=== PATIENT | male | born 1960 | race African-American/Black ===

== ENCOUNTER 2018-09-25 00:26 | Emergency (ER) | payer OTHER ==
--- OUTSIDE RECORDS SUMMARY | 2018-09-25 00:27 | XMS REPORT | Clinical Summary ---
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, initial encounter ([facility]); Presence of left artificial knee joint 08/17/2018 Transcribe Orders Access Yanelis Sahni, Infection of total left knee replacement, initial encounter ([facility]) (Primary Dx); DO Pain due to hip joint prosthesis, initial encounter ([facility]); Presence of left artificial knee joint after 09/24/2017 Social History Tobacco Use Types Packs/Day Years Used Date Never Assessed Sex Assigned at Date Recorded Not on file Job Start Date Occupation Industry Not on file Not on file Not on file Travel History Travel Start Travel End No recent travel history available. Last Filed Vital Signs Not on file Plan of Treatment Health Maintenance Due Date Last Done Comments COLON CANCER SCREENING 2008 SHINGRIX VACCINE (1 of 2) 2008 INFLUENZA VACCINE 05/20/2018 HEPATITIS B VACCINES Aged Out No longer eligible based on patient's age to complete this topic IPV VACCINES Aged Out No longer eligible based on patient's age to complete this topic MENINGOCOCCAL VACCINE Aged Out No longer eligible based on patient's age to complete this topic Procedures Procedure Name Priority Date/Time Associated Comments Diagnosis US NEEDLE ASPIRATION Routine 08/27/2018 3:21 PM Infection of total Results for this [employer] left knee procedure are in replacement, the results initial encounter section. 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 CRYSTAL ANALYSIS Routine 08/27/2018 2:40 PM Results for this [employer] procedure are in the results section. CELL COUNT AND Routine 08/27/2018 2:40 PM Results for this DIFFERENTIAL, BODY [employer] procedure are in FLUID the results section. TISSUE CULTURE Timed 08/27/2018 2:40 PM Results for this [employer] procedure are in the results section. GRAM STAIN Timed 08/27/2018 2:40 PM Results for this [employer] procedure are in the results section. ANAEROBIC CULTURE Timed 08/27/2018 2:40 PM Infection of total Results for this [employer] left knee procedure are in replacement, the results initial encounter section. 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 FINDINGS: Following informed consent using aseptic technique under local anesthetic and using ultrasound guidance needle was directed to 3 areas where hypo suspected fluid was noted. One along the lateral margin of the distal femur one in the area of the suprapatellar bursal region and another adjacent area as well. No significant fluid could be aspirated any of these areas. Only a small amount of blood was aspirated which was sent for culture and sensitivity. No additional findings of significance are noted. The patient tolerated the procedure without difficulty. IMPRESSION:No fluid was encountered to allow for aspiration. A small collection of blood was sent for culture and sensitivity [id number] Procedure Note Hm Interface, Radiology Results Incoming - 08/27/2018 3:58 PM [employer] EXAMINATION: US NEEDLE ASPIRATION CLINICAL HISTORY: T84.54XA Infection and inflammatory reaction due to internal left knee prosthesis initial encounter, Z96.652 Presence of left artificial knee joint, T84.54XA T84.84XA Z96.652 COMPARISON: None. FINDINGS: Following informed consent using aseptic technique under local anesthetic and using ultrasound guidance needle was directed to 3 areas where hypo suspected fluid was noted. One along the lateral margin of the distal femur one in the area of the suprapatellar bursal region and another adjacent area as well. No significant fluid could be aspirated any of these areas. Only a small amount of blood was aspirated which was sent for culture and sensitivity. No additional findings of significance are noted. The patient tolerated the procedure without difficulty. IMPRESSION:No fluid was encountered to allow for aspiration. A small collection of blood was sent for culture and sensitivity [id number] Performing Organization Address City/[facility] [address]/Zipcode Phone Number [address] [address] Crystal analysis (08/27/2018 2:40 PM [facility]) Crystal analysis specimen type Synovial [facility] DEPARTMENT OF PATHOLOGY AND GENOMIC MEDICINE Monosodium urate None seen None seen [facility] DEPARTMENT OF PATHOLOGY AND GENOMIC MEDICINE CPPD crystals None seen None seen [facility] DEPARTMENT OF PATHOLOGY AND GENOMIC MEDICINE Specimen Fluid Performing Organization Address [facility] [address]/[facility] Phone Number [facility] DEPARTMENT OF PATHOLOGY AND [address] [place] [phone] [facility] Tissue culture (08/27/2018 2:40 PM [facility]) Tissue culture isolate No growth after 3 days. [facility] Comment: Specimen Information Specimen Source: Tissue Specimen Site: Knee Specimen Tissue - Knee Performing Organization Address [facility] [address]/[facility] Phone Number [facility] DEPARTMENT OF PATHOLOGY AND [address] [place], [place] [phone] [address] [address] Gram stain (08/27/2018 2:40 PM [employer]) Gram stain isolate Occasional WBC's [facility] DEPARTMENT OF PATHOLOGY AND No organisms seen [facility] Comment: Specimen Information Specimen Source: Tissue Specimen Site: Knee Specimen Tissue - Knee Performing Organization Address [facility] [address]/[facility] Phone Number [facility] DEPARTMENT OF PATHOLOGY AND [address] [place] [phone] [facility] Anaerobic culture (08/27/2018 2:40 PM [facility]) Anaerobic culture isolate No anaerobic organisms isolated. [facility] Comment: HOSPITAL Specimen Information Specimen Source: Tissue Specimen Site: Knee Specimen Tissue - Knee Performing Organization Address City/[facility] [address]/Zipcode Phone Number [facility] DEPARTMENT OF PATHOLOGY AND [address] [place], [place] [phone] [address] [address] Cell count and differential, body fluid (08/27/2018 2:40 PM [employer]) [facility] fluid type Synovial [facility] DEPARTMENT OF PATHOLOGY AND GENOMIC MEDICINE Color, fluid [place] [facility] DEPARTMENT OF PATHOLOGY AND GENOMIC MEDICINE Appearance, fluid Cloudy (A) [facility] DEPARTMENT OF PATHOLOGY AND GENOMIC MEDICINE RBC, fluid 16,750 /CMM [facility] DEPARTMENT OF PATHOLOGY AND GENOMIC MEDICINE Nucleated cells, fluid 75 /CMM [facility] DEPARTMENT OF PATHOLOGY AND GENOMIC MEDICINE Fluid mononuclear cell Diff to follow [facility] DEPARTMENT OF PATHOLOGY AND GENOMIC MEDICINE Neutrophils, fluid 59 % [facility] DEPARTMENT OF PATHOLOGY AND GENOMIC MEDICINE Lymphocytes, fluid 32 % [facility] DEPARTMENT OF PATHOLOGY AND GENOMIC MEDICINE Eosinophils, fluid 1 % [facility] DEPARTMENT OF PATHOLOGY AND GENOMIC MEDICINE Macrophages, fluid 8 % [facility] DEPARTMENT OF PATHOLOGY AND GENOMIC MEDICINE Specimen Fluid Performing Organization Address City/State/[facility] Phone Number [facility] DEPARTMENT OF PATHOLOGY AND [address] [place] [address] GENOMIC MEDICINE Glucose level, [facility] fluid (08/27/2018 2:40 PM [employer]) Fluid type Synovial [facility] DEPARTMENT OF PATHOLOGY AND GENOMIC MEDICINE Glucose, fluid <2 mg/dL [facility] DEPARTMENT OF PATHOLOGY Comment: AND GENOMIC MEDICINE Analysis performed on Kelli 8000 analyzer. This is not an approved methodology for this specimen type;accuracy and clinical significance uncertain. Specimen Fluid Performing Organization Address City/State/Zipcode Phone Number [facility] DEPARTMENT OF PATHOLOGY AND [address] [place] [address] GENOMIC MEDICINE after 09/24/2017 Insurance Payer Benefit Plan / Group Subscriber ID Type Phone Address [employer]/NETWORK xxxxxxxxxxx O MEDICARE MEDICARE PART A AND B xxxxxxxxxxx Medicare [place], [place] (Home) [address] [place] [address] Advance Directives Patient has advance care planning documents on file. For more information, please contact:Jerry Hyatt[address] [place] [address]
--- OUTSIDE RECORDS SUMMARY | 2018-09-25 00:31 | XMS REPORT | Continuity of Care Document ---
:1960 Author Organization Interface Problems Problem Status Onset Classification Date Comments Source Date Reported G06.2 Active 08/26/[address] XRAY Active 07/14/[address] BACK PAIN Active 06/19/20 [facility] 724.2 Active 05/24/[address] 724.2 ACUTE LOW Active 05/09/20 BACK PAIN 15 [facility] Type 2 diabetes Active Diagnosis 10/29/2017 2.16.840.1. mellitus without [id number] complication, 1.. without long-term current use of insulin Staphylococcus Active Diagnosis 10/29/2017 2.16.840.1. aureus bacteremia 815673.4.39 with sepsis 1..42102 Abscess in Active Diagnosis 10/29/2017 2.16.840.1. epidural space of 732658.4.39 thoracic spine 1..88618 Local infection Active Diagnosis 09/10/2017 2.16.840.1. of the skin and 247181.4.39 subcutaneous 1.11.60978 tissue, unspecified Abrasion of right Active Diagnosis 09/10/2017 2.16.840.1. front wall of 584385.4.39 thorax, 1.11.94742 subsequent encounter DM Active Problem 10/29/2017 2.16.840.1. 568365.4.39 1.11.39160 Chronic back pain Active Problem 10/29/2017 2.16.840.1. 604530.4.39 1.11.78747 HTN Active Problem 10/29/2017 2.16.840.1. 303386.4.39 1.11.58014 Epidural abscess Active Problem 10/29/2017 2.16.840.1. 851924.4.39 1.11.71062 Osteomyelitis Active Problem 10/29/2017 2.16.840.1. 603532.4.39 1.11.83779 Sepsis Active Problem 10/29/2017 2.16.840.1. 296685.4.39 Bacteremia Active Problem 10/29/2017 2.16.840.1. 425996.4.39 Chronic back pain Resolved Problem 09/21/2017 Raoul Wyman [facility] Diabetes Resolved Problem 09/21/2017 Raoul Wyman [facility] HTN (<span Resolved Problem 09/21/2017 ID="[id number]" Garo,M >Confirmed</span> ischer ) Neuro Simple obesity Active Problem 09/21/2017 Raoul Wyman [facility] DORSALGIA, Active UNSPECIFIED [facility] Medications Medication Details Route Status Patient Ordering Order Source Instructions Provider Date Keflex 1 tablet Orally Active 500 MG Orally Nyal[place]onda .16.840.1 every 6 hrs 2016 .976332.4. 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 WASTE: F/P - Black; E - PlayEnable Trash Bin Rifampin 1 capsule PO Active 300 MG PO Nyal[place] .16.840.1 twice a day 2016 .858929.4. (bid) 391 68 Rifampin 1 capsule PO Active 300 MG PO [place] .16.840.1 twice a day 2016 .501871.4. (bid) 391 68 Doxycycline 1 capsule Orally Active 100 MG Orally Nyal[place] .16.840.1 Hyclate every 12 hrs 2016 .931491.4. 391 68 OPANA ER OPANA ER Inactive (C-II) (C-II) 2016 [facility] Controlled Med Controlled Pt's Own Med Med Pt's Own Med, 10 mg, 1 tab, Drug form: MISC, Route: PO, Q12H, 07/04/17 21:00:00 CDT, Duration: 30 day, Stop date: 08/03/17 9:00:00 CDT Opana ER 10 mg, Route: Inactive PO, Drug 2016 [facility] form: ERTAB, Q12H, Dosing Weight 129, kg, Start date: 07/04/17 21:00:00 CDT, Duration: 30 day, Stop date: 08/03/17 9:00:00 CDT Cefazolin 2 sz=126 mL, Active IVPB, ABXQ8H, 2016 [facility] 0 Refill(s) OPANA ER OPANA ER Inactive (C-II) (C-II) 2016 [facility] Controlled Med Controlled Pt's Own Med Med Pt's Own Med, 10 mg, Drug form: MISC, Route: PO, Q12H, Priority: NOW, 07/04/17 11:48:00 CDT, Duration: 30 day, Stop date: 08/03/17 9:00:00 CDT MS Contin 30 mg, 2 tab, No Longer Route: PO, Active 2016 [facility] Drug form: ERTAB, Q12H, Dosing Weight 129, kg, Start date: 07/03/17 21:00:00 CDT, Duration: 30 day, Stop date: 08/02/17 9:00:00 CDTNotes: Do not crush (Same as:Oramorph SR, MS Contin) Oxycontin 20 mg, 2 tab, No Longer Route: PO, Active 2016 [facility] Drug form: ERTAB, Q12H, Dosing Weight 129, kg, Start date: 07/01/17 21:00:00 CDT, Duration: 30 day, Stop date: 07/31/17 9:00:00 CDTNotes: Do not crush or chew. (Same as: OxyContin) Naloxone 0.4 mg, No Longer Route: IVP, Active 2016 [facility] Q2MIN, Dosing Weight 129, kg, PRN Narcotic Reversal, Start date: 06/30/17 14:25:00 CDT, Duration: 8 doses or times, Stop date: Limited # of times Flumazenil 0.2 mg, No Longer Route: IVP, Active 2016 [facility] PRN, Dosing Weight 129, kg, PRN Benzodiazepin e Reversal, Initial dose, Start date: 06/30/17 14:25:00 CDT, Duration: 30 day, Stop date: 07/30/17 14:24:00 CDT Morphine 4 mg, Route: No Longer IVP, Q5Min, 2016 [facility] Dosing Weight 129, kg, PRN Pain Score 7-10, Start date: 06/30/17 14:25:00 CDT, Duration: 3 doses or times, Stop date: Limited # of times Oxycodone 10 mg, Route: No Longer NG, Drug Active 2016 [facility] form: LIQ, Q4H, Dosing Weight 129, kg, PRN Pain Score 7-10, Start date: 06/30/17 14:25:00 CDT, Duration: 30 day, Stop date: 07/30/17 14:24:00 CDT Hydromorphone 0.5 mg, No Longer Route: IVP, 2016 [facility] Q5Min, Dosing Weight 129, kg, PRN Pain Score 7-10, Start date: 06/30/17 14:25:00 CDT, Duration: 4 doses or times, Stop date: Limited # of times Fentanyl 50 microgram, No Longer Route: IVP, 2016 [facility] Q5Min, Dosing Weight 129, kg, PRN Pain Score 7-10, Priority: Routine, Start date: 06/30/17 14:25:00 CDT, Duration: 2 doses or times, Stop date: Limited # of times Diphenhydramine 12.5 mg, No Longer Route: IVP, 2016 [facility] Drug form: INJ, Q6H, Dosing Weight 129, kg, PRN Itching, Start date: 06/30/17 14:25:00 CDT, Duration: 30 day, Stop date: 07/30/17 14:24:00 CDT Albuterol 0.83 2.49 mg, No Longer MG/ML Inhalant Route: NEB, 2016 [facility] Solution Q20Min, Dosing Weight 129, kg, PRN Wheezing, Priority: STAT, Start date: 06/30/17 14:25:00 CDT, Duration: 30 day, Stop date: 07/30/17 14:24:00 CDT Ondansetron 4 mg, Route: No Longer IVP, ONCE, [facility] 2016 [facility] Dosing Weight 129, kg, PRN Nausea & Vomiting, Start date: 06/30/17 14:25:00 CDT Meperidine 12.5 mg, No Longer Route: IVP, [facility] 2016 [facility] Q30Min, Dosing Weight 129, kg, PRN Other -See Comment, For shivering, Start date: 06/30/17 14:25:00 CDT, Duration: 2 doses or times, Stop date: Limited # of times esmolol 10 mg, Route: No Longer IVP, Q5Min, 2016 [facility] Dosing Weight 129, kg, PRN Other -See Comment, Start date: 06/30/17 14:25:00 CDT, Duration: 5 doses or times, Stop date: Limited # of times Hydralazine 10 mg, Route: No Longer IVP, Q20Min, [facility] 2016 [facility] Dosing Weight 129, kg, PRN Elevated BP, Start date: 06/30/17 14:25:00 CDT, Duration: 2 doses or times, Stop date: Limited # of times Labetalol 10 mg, Route: No Longer IVP, Q5Min, 2016 [facility] Dosing Weight 129, kg, PRN Elevated BP, Start date: 06/30/17 14:25:00 CDT, Duration: 5 doses or times, Stop date: Limited # of times Acetaminophen 1,000 mg, No Longer Route: IVPB, [facility] 2016 [facility] Drug form: INJ, ONCE, Dosing Weight 129, kg, PRN Pain Score 1-3, Start date: 06/30/17 14:25:00 CDT, Duration: 1 doses or times, Stop date: Limited # of times Ketorolac 30 mg, Route: No Longer IVP, ONCE, 2016 [facility] Dosing Weight 129, kg, Start date: 06/30/17 14:25:00 CDT, Duration: 1 doses or times, Stop date: 06/30/17 14:25:00 CDT ondansetron Route: IV, Inactive (ANES) Drug form: 2016 [facility] INJ, ONCE, Stop date: 06/30/17 13:39:00 CDT lidocaine (ANES) Route: IV, Inactive Drug form: 2016 [facility] INJ, ONCE, Stop date: 06/30/17 13:34:00 CDT hydromorphone Route: IV, Inactive (ANES) Drug form: 2016 [facility] INJ, ONCE, Stop date: 06/30/17 13:34:00 CDT propofol (ANES) Route: IV, Inactive Drug form: 2016 [facility] INJ, ONCE, Stop date: 06/30/17 13:34:00 CDT LR 1000 mL INJ Route: IV, Inactive (ANES) Total Volume: 2016 [facility] 1,000, Start date: 06/30/17 12:39:00 CDT, Stop date: 06/30/17 13:39:00 CDT Calcium Chloride 1,000 mL, Inactive 0.0014 MEQ/ML / Rate: 25 2016 Potassium ml/hr, Infuse Chloride 0.004 over: 40 hr, MEQ/ML / Sodium Route: IV, Chloride 0.103 Dosing Weight MEQ/ML / Sodium 129 kg, Total Lactate 0.028 Volume: MEQ/ML 1,000, Start Injectable date: Solution 06/30/17 12:24:00 CDT, Duration: 30 day, Stop date: 07/30/17 12:23:00 CDT Morphine 4 mg, 1 mL, No Longer Route: IVP, Active 2016 [facility] Drug form: SOLN, Q4H, Dosing Weight 129, kg, PRN Pain Score 7-10, Start date: 06/30/17 10:32:00 CDT, Duration: 30 day, Stop date: 07/30/17 10:31:00 CDTNotes: (Same as:MORPhine Sulfate) Lactated Ringers 1,000 mL, No Longer 1,000 mL Rate: 100 Active 2016 [facility] ml/hr, Infuse over: 10 hr, Route: IV, Dosing Weight 129 kg, Total Volume: 1,000, Priority: Routine, Start date: 06/30/17 0:00:00 CDT, Duration: 30 day, Stop date: 07/29/17 23:59:00 CDT Clonidine 0.1 mg, 1 No Longer Hydrochloride tab, Route: Active 2016 [facility] 0.1 MG Oral PO, Drug Tablet form: TAB, Q6H, Dosing Weight 129, kg, PRN Other -See Comment, Start date: 06/28/17 17:08:00 CDT, Duration: 30 day, Stop date: 07/28/17 17:07:00 CDT, SBP > 165Notes: (Same As: Catapres) Calcium 2,000 mg, 20 Inactive Gluconate mL, Route: 2016 [facility] IVPB, ONCE, Dosing Weight 129, kg, Start date: 06/28/17 17:01:00 CDT, Stop date: 06/28/17 17:01:00 CDTNotes: WASTE: F/P - Sink; E - Municipal Trash Bin K-Dur 20 20 mEq, 1 Inactive tab, Route: 2016 [facility] PO, Drug form: ERTAB, ONCE, Dosing Weight 129, kg, Start date: 06/28/17 17:01:00 CDT, Stop date: 06/28/17 17:01:00 CDTNotes: (Same as: K-Dur 20) "Do Not Crush" With food and full glass of water gabapentin 800 mg, 2 No Longer cap, Route: Active 2016 [facility] PO, Drug form: CAP, Q8H, Dosing Weight 129, kg, Start date: 06/28/17 5:30:00 CDT, Duration: 30 day, Stop date: 07/27/17 21:30:00 CDTNotes: (Same as: Neurontin) heparin sodium, 5,000 unit, 1 No Longer porcine 2500 mL, Route: Active 2016 UNT/ML SUB-Q, Drug Injectable form: INJ, Solution Q8H, Dosing Weight 129, kg, Start date: 06/28/17 0:00:00 CDT, Duration: 30 day, Stop date: 07/27/17 16:00:00 CDTNotes: porcine heparin gabapentin 800 800 mg=1 tab, Active MG Oral Tablet PO, TID, # 90 2016 tab, 3 Refill(s) Acetaminophen 1 tab, PO, Active 325 MG / Q6H, PRN for 2016 [facility] Hydrocodone pain, # 24 Bitartrate 10 MG tab, 0 Oral Tablet Refill(s) [[place] 10/325] Docusate Sodium 100 mg, 1 No Longer 100 MG Oral cap, Route: Active 2016 [facility] Capsule PO, Drug form: CAP, BID, Dosing Weight 129, kg, Start date: 06/27/17 17:00:00 CDT, Duration: 30 day, Stop date: 07/27/17 9:00:00 CDTNotes: (Same as: Colace) (Do Not Crush) Hydromorphone 15 mg, 30 mL, Inactive Route: IV, 2016 [facility] Initial Loading Dose: 0.4mg, ROOFER HELPER Dose: 0.2 mg, ROOFER HELPER Lockout: 10 minutes, Continuous Basal Rate: 0 mg, 4 Hour Limit (In MG): 6, Continuous, Start date: 06/27/17 14:30:00 CDT, Duration: 30 day, Stop date: 07/27/17 14:29:00 CDT Naloxone 0.04 mg, 0.1 No Longer mL, Route: Active 2016 [facility] IVP, Drug form: INJ, Q2MIN, Dosing Weight 129, kg, PRN Narcotic Reversal, Start date: 06/27/17 14:12:00 CDT, Duration: 30 day, Stop date: 07/27/17 14:11:00 CDTNotes: Same as Narcan Morphine 30 mg, 30 mL, Inactive Route: IV, 2016 [facility] Initial Loading Dose: 2 mg, ROOFER HELPER Dose: 1 mg, ROOFER HELPER Lockout: 10 minutes, Continuous Basal Rate: 0 mg, 4 Hour Limit (In MG): 30, Continuous, Start date: 06/27/17 14:00:00 CDT, Duration: 30 day, Stop date: 07/27/17 13:59:00 CDT Meperidine 12.5 mg, 0.25 No Longer mL, Route: Active 2016 [facility] IVP, Drug form: INJ, Q30Min, Dosing Weight 129, kg, PRN Other -See Comment, For shivering, Start date: 06/27/17 13:49:00 CDT, Duration: 2 doses or times, Stop date: Limited # of timesNotes: (Same As: Demerol) Albuterol 0.83 2.49 mg, 3 No Longer MG/ML Inhalant mL, Route: Active 2016 [facility] Solution NEB, Drug form: SOLN, Q20Min, Dosing Weight 129, kg, PRN Wheezing, Priority: STAT, Start date: 06/27/17 13:49:00 CDT, Duration: 30 day, Stop date: 07/27/17 13:48:00 CDTNotes: SEE RT DOCUMENTATION (Same as: Proventil) Diphenhydramine 12.5 mg, 0.25 No Longer mL, Route: Active 2016 [facility] IVP, Drug form: INJ, Q6H, Dosing Weight 129, kg, PRN Itching, Start date: 06/27/17 13:49:00 CDT, Duration: 30 day, Stop date: 07/27/17 13:48:00 CDTNotes: (Same as: Benadryl) Promethazine 6.25 mg, 0.25 No Longer mL, Route: Active 2016 [facility] IVPB, ONCE, Dosing Weight 129, kg, PRN Nausea & Vomiting, Start date: 06/27/17 13:49:00 CDTNotes: Do not give IV push. (Same as: Phenergan) Ondansetron 4 mg, 2 mL, No Longer Route: IVP, [facility] 2016 [facility] Drug form: INJ, ONCE, Dosing Weight 129, kg, PRN Nausea & Vomiting, Start date: 06/27/17 13:49:00 CDTNotes: (Same as: Zofran) MEDICATION WASTE Product Size: 4 mg Product Wasted: _0__ mg Hydromorphone 0.5 mg, Inactive Route: IVP, 2016 [facility] Q5Min, Dosing Weight 129, kg, PRN Pain Score 7-10, Start date: 06/27/17 13:49:00 CDT, Duration: 4 doses or times, Stop date: Limited # of times Naloxone 0.4 mg, 1 mL, No Longer Route: IVP, [facility] 2016 [facility] Drug form: INJ, Q2MIN, Dosing Weight 129, kg, PRN Narcotic Reversal, Start date: 06/27/17 13:49:00 CDT, Duration: 8 doses or times, Stop date: Limited # of timesNotes: Same as Narcan Flumazenil 0.2 mg, 2 mL, No Longer Route: IVP, [facility] 2016 [facility] Drug form: INJ, PRN, Dosing Weight 129, kg, PRN Benzodiazepin e Reversal, Initial dose, Start date: 06/27/17 13:49:00 CDT, Duration: 30 day, Stop date: 07/27/17 13:48:00 CDTNotes: (Same as: Romazicon) Calcium Chloride 1,000 mL, No Longer 0.0014 MEQ/ML / Rate: 125 2016 [facility] Potassium ml/hr, Infuse Chloride 0.004 over: 8 hr, MEQ/ML / Sodium Route: IV, Chloride 0.103 Dosing Weight MEQ/ML / Sodium 129 kg, Total Lactate 0.028 Volume: MEQ/ML 1,000, Start Injectable date: Solution 06/27/17 13:49:00 CDT, Duration: 30 day, Stop date: 07/27/17 13:48:00 CDT Oxycodone 5 mg, 1 tab, No Longer Route: PO, [facility] 2016 [facility] Drug form: TAB, Q4H, Dosing Weight 129, kg, PRN Pain Score 4-6, Start date: 06/27/17 13:49:00 CDT, Duration: 30 day, Stop date: 07/27/17 13:48:00 CDTNotes: (Same as: Roxicodone) Acetaminophen 1,000 mg, 2 No Longer tab, Route: [facility] 2016 [facility] PO, Drug form: TAB, ONCE, Dosing Weight 129, kg, PRN Pain Score 1-3, Start date: 06/27/17 13:49:00 CDT, Duration: 1 doses or times, Stop date: Limited # of timesNotes: Max acetaminophen 4000 mg/day (4 gm/day). (Same as: Tylenol Extra Strength) Hydralazine 10 mg, 0.5 No Longer mL, Route: [facility] 2016 [facility] IVP, Drug form: INJ, Q20Min, Dosing Weight 129, kg, PRN Elevated BP, Start date: 06/27/17 13:49:00 CDT, Duration: 2 doses or times, Stop date: Limited # of timesNotes: (Same as: Apresoline) Push over 5 minutes esmolol 10 mg, 1 mL, No Longer Route: IVP, [address] Drug form: INJ, Q5Min, Dosing Weight 129, kg, PRN Other -See Comment, Start date: 06/27/17 13:49:00 CDT, Duration: 5 doses or times, Stop date: Limited # of timesNotes: (Same as: Brevibloc) Labetalol 10 mg, 2 mL, No Longer Route: IVP, [address] Drug form: INJ, Q5Min, Dosing Weight 129, kg, PRN Elevated BP, Start date: 06/27/17 13:49:00 CDT, Duration: 5 doses or times, Stop date: Limited # of timesNotes: (Same as: Normodyne, Trandate) Push over 2 minutes Give bolus over 2-3 minutes. Naloxone 0.04 mg, 0.1 No Longer mL, Route: Active 2016 [facility] IVP, Drug form: INJ, Q2MIN, Dosing Weight 129, kg, PRN Narcotic Reversal, Start date: 06/27/17 13:43:00 CDT, Duration: 30 day, Stop date: 07/27/17 13:42:00 CDTNotes: Same as Narcan sodium chloride 1,000 mL, No Longer 0.45% 1000 ml Rate: 30 Active 2016 [facility] INJ 1,000 mL ml/hr, Infuse over: 33.3 hr, Route: IV, Dosing Weight 129 kg, Total Volume: 1,000, Start date: 06/27/17 13:43:00 CDT, Duration: 30 day, Stop date: 07/27/17 13:42:00 CDT Promethazine 12.5 mg, 0.5 No Longer mL, Route: Active 2016 [facility] IVPB, Q4H, Dosing Weight 129, kg, PRN Nausea & Vomiting, Start date: 06/27/17 13:43:00 CDT, Duration: 30 day, Stop date: 07/27/17 13:42:00 CDTNotes: Do not give IV push. (Same as: Phenergan) Acetaminophen 1 tab, Route: No Longer 325 MG / PO, Drug Active 2016 [facility] Hydrocodone Form: TAB, Bitartrate 10 MG Dosing Weight Oral Tablet 129, kg, Q4H, PRN Pain Score 4-6, Start date: 06/27/17 13:43:00 CDT, Duration: 30 day, Stop date: 07/27/17 13:42:00 CDTNotes: Do not exceed 4gm/day of acetaminophen . (Same as: [place] 325/10) phenylephrine Route: IV, Inactive (ANES) Drug form: 2016 [facility] INJ, ONCE, Stop date: 06/27/17 12:53:00 CDT hydromorphone Route: IV, Inactive (ANES) Drug form: 2016 [facility] INJ, ONCE, Stop date: 06/27/17 12:38:00 CDT ceFAZolin (ANES) Route: IV, Inactive Drug form: 2016 [facility] INJ, ONCE, Stop date: 06/27/17 12:06:00 CDT cefepime (ANES) Route: IV, Inactive Drug form: 2016 [facility] INJ, ONCE, Stop date: 06/27/17 11:41:00 CDT metroNIDAZOLE Route: IV, Inactive (ANES) Drug form: 2016 [facility] INJ, ONCE, Stop date: 06/27/17 11:16:00 CDT Albuterol 0.833 3 mL, Route: Inactive MG/ML / NEB, Drug 2016 [facility] Ipratropium Form: SOLN, [place] 0.167 Dosing Weight MG/ML Inhalant 129, kg, Solution ONCE, STAT, Start date: 06/27/17 9:38:00 CDT, Stop date: 06/27/17 9:38:00 CDTNotes: (Same as: Duoneb) Calcium Chloride 1,000 mL, No Longer 0.0014 MEQ/ML / Rate: 25 Active 2016 [facility] Potassium ml/hr, Infuse Chloride 0.004 over: 40 hr, MEQ/ML / Sodium Route: IV, Chloride 0.103 Dosing Weight MEQ/ML / Sodium 129 kg, Total Lactate 0.028 Volume: MEQ/ML 1,000, Start Injectable date: Solution 06/27/17 9:38:00 CDT, Duration: 1 day, Stop date: 06/28/17 9:37:00 CDT ondansetron Route: IV, Inactive (ANES) Drug form: 2016 [facility] INJ, ONCE, Stop date: 06/27/17 9:21:00 CDT succinylcholine Route: IV, Inactive (ANES) Drug form: 2016 [facility] INJ, ONCE, Stop date: 06/27/17 9:21:00 CDT propofol (ANES) Route: IV, Inactive Drug form: 2016 [facility] INJ, ONCE, Stop date: 06/27/17 9:21:00 CDT rocuronium Route: IV, Inactive (ANES) Drug form: 2016 [facility] INJ, ONCE, Stop date: 06/27/17 9:21:00 CDT lidocaine (ANES) Route: IV, Inactive Drug form: 2016 [facility] INJ, ONCE, Stop date: 06/27/17 9:16:00 CDT midazolam (ANES) Route: IV, Inactive Drug form: 2016 [facility] SOLN, ONCE, Stop date: 06/27/17 9:16:00 CDT acetaminophen Route: IV, Inactive (ANES) Drug form: 2016 [facility] INJ, ONCE, Stop date: 06/27/17 9:16:00 CDT fentaNYL (ANES) Route: IV, Inactive Drug form: 2016 [facility] INJ, ONCE, Stop date: 06/27/17 9:16:00 CDT ceFAZolin (ANES) Route: IV, Inactive Drug form: 2016 [facility] INJ, ONCE, Stop date: 06/27/17 9:11:00 CDT vancomycin Route: IV, Inactive (ANES) (ANES) Drug form: 2016 [facility] INJ, Start date: 06/27/17 8:37:00 CDT, Stop date: 06/27/17 9:37:00 CDT LR 1000 mL INJ Route: IV, Inactive (ANES) Total Volume: 2016 [facility] 1,000, Start date: 06/27/17 7:56:00 CDT, Stop date: 06/27/17 8:56:00 CDT bupivacaine-epin 30 mL, Route: No Longer ephrine InFILtration( Active 2016 [facility] 0.25%-1:200,000 local), Drug preservative-mechelle Form: INJ, e injectable Dosing Weight solution 129, kg, ONCE, Start date: 06/27/17 7:10:00 CDT, Stop date: 06/27/17 7:10:00 CDTNotes: (bupivacaine- epi 0.25%-1:200,0 00 30 ml VL) Not for use in continuous infusion. (Same As: Marcaine w/Epi) Docusate Sodium 100 mg, 1 No Longer 100 MG Oral cap, Route: Active 2016 [facility] Capsule PO, Drug form: CAP, BID, Dosing Weight 129, kg, Start date: 06/26/17 17:00:00 CDT, Duration: 30 day, Stop date: 07/26/17 9:00:00 CDTNotes: (Same as: Colace) (Do Not Crush) Lactulose 667 20 gm, 30 ml, Inactive MG/ML Oral Route: PO, 2016 [facility] Solution Drug form: SYRP, ONCE, Dosing Weight 129, kg, Start date: 06/26/17 13:48:00 CDT, Stop date: 06/26/17 13:48:00 CDTNotes: (Same as:Chronulac) gabapentin 600 mg, 2 No Longer cap, Route: Active 2016 [facility] PO, Drug form: CAP, Q8H, Dosing Weight 129, kg, Start date: 06/26/17 13:30:00 CDT, Duration: 30 day, Stop date: 07/26/17 5:30:00 CDTNotes: (Same as: Neurontin) Lidocaine 40 1 appl, No Longer MG/ML Topical Route: TOP, Active 2016 [facility] Cream TID, Drug form: SOLN, PRN Pain Score 1-5, Start date: 06/26/17 10:29:00 CDT, Duration: 30 day, Stop date: 07/26/17 10:28:00 CDTNotes: (Same as: Xylocaine) metoprolol 25 mg, 1 tab, No Longer tartrate Route: PO, Active 2016 [facility] Drug form: TAB, Q12H, Dosing Weight 129, kg, Start date: 06/25/17 21:00:00 CDT, Duration: 30 day, Stop date: 07/25/17 9:00:00 CDTNotes: (Same as: Lopressor) Dilaudid 0.8 mg, 0.8 No Longer mL, Route: Active 2016 [facility] IV, Drug form: INJ, Q3H, Dosing Weight 129, kg, PRN Pain Score 4-6, Start date: 06/24/17 10:36:00 CDT, Duration: 30 day, Stop date: 07/24/17 10:35:00 CDT OPANA ER OPANA ER No Longer (C-II) (C-II) Active 2016 [facility] Controlled Med Controlled Pt's Own Med Med Pt's Own Med, 10 mg, 1 tab, Drug form: MISC, Route: PO, BID, 06/23/17 21:00:00 CDT, Duration: 30 day, Stop date: 07/23/17 9:00:00 CDT Opana 10 mg, Route: Inactive PO, Drug 2016 [facility] form: TAB, BID, Dosing Weight 129, kg, Start date: 06/23/17 17:00:00 CDT, Duration: 30 day, Stop date: 07/23/17 9:00:00 CDT *ATTN RN please *ATTN RN Inactive bring pt home please bring 2016 [facility] med Opana to pt home med pharmacy Opana to pharmacy , *ATTN RN, Drug form: MISC, Route: MISC, QSHIFT, 06/23/17 16:00:00 CDT, Duration: 30 day, Stop date: 07/23/17 8:00:00 CDT Motrin 800 mg, 1 No Longer tab, Route: Active 2016 [facility] PO, Drug form: TAB, Q8H, PRN Other -See Comment, Start date: 06/23/17 15:13:00 CDT, Stop date: 07/23/17 15:12:00 CDTNotes: (Same as: Motrin) "Do Not Crush" Take with food. famotidine 20 mg, 1 tab, No Longer Route: PO, Active 2016 [facility] Drug form: TAB, BID, PRN Other -See Comment, Start date: 06/23/17 15:12:00 CDT, Duration: 30 day, Stop date: 07/23/17 15:11:00 CDTNotes: (Same as: Pepcid) Famotidine / 1 tab, Route: Inactive Ibuprofen PO, Drug 2016 Form: TAB, Dosing Weight 129, kg, TID, PRN Pain Score 4-6, Start date: 06/23/17 14:30:00 CDT, Duration: 30 day, Stop date: 07/23/17 14:29:00 CDT sodium chloride 1,000 mL, No Longer 0.9% 1000 ml INJ Rate: 60 2016 1,000 mL ml/hr, Infuse over: 16.7 hr, Route: IV, Dosing Weight 129 kg, Total Volume: 1,000, Start date: 06/23/17 14:29:00 CDT, Duration: 30 day, Stop date: 07/23/17 14:28:00 CDT Famotidine 26.6 1 tab, PO, Active MG / Ibuprofen TID, PRN 2016 800 MG Oral Pain, # 90 Tablet [Duexis] tab, 0 Refill(s) Cefazolin 2 gm, 100 mL, No Longer Route: IVPB, 2016 [facility] Drug form: INJ, ABXQ8H, Dosing Weight 129, kg, Start date: 06/22/17 19:00:00 CDT, Duration: 42 day, Stop date: 08/03/17 11:00:00 CDT, ABX Indication: BacteremiaNot es: Same as: Ancef Oxymorphone 10 mg=1 tab, Active Hydrochloride 10 PO, BID, 0 2016 MG Oral Tablet Refill(s) [Opana] gabapentin 300 mg, 1 No Longer cap, Route: Active 2016 PO, Drug form: CAP, Q8H, Dosing Weight 129, kg, Start date: 06/21/17 16:00:00 CDT, Duration: 30 day, Stop date: 07/21/17 8:00:00 CDTNotes: (Same as: Neurontin) vancomycin 1.25 gm, 250 No Longer mL, Route: Active 2016 [facility] IVPB, Drug form: INJ, ABXQ8H, Start date: 06/21/17 0:00:00 CDT, Duration: 30 day, Stop date: 07/20/17 16:00:00 CDT, ABX Indication: Bone/Joint InfectionNote s: TIME CRITICAL MEDICATION Same as: Vancocin-NS (premixed) Infusion rate 2000 mg: infuse over 2.5 hours Vancomycin 1.25 gm, No Longer Route: IV, Active 2016 [facility] Q8H, Dosing Weight 129, kg, Start date: 06/21/17 0:00:00 CDT, Duration: 14 day, Stop date: 07/04/17 16:00:00 CDT, Pharmacy to dose, ABX Indication: Bone/Joint Infection vancomycin 1.25 gm, 250 Inactive mL, Route: 2016 [facility] IVPB, Drug form: INJ, ABXQ8H, Start date: 06/20/17 21:00:00 CDT, Duration: 30 day, Stop date: 07/20/17 13:00:00 CDT, ABX 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 dural AbcessNotes: TIME CRITICAL MEDICATION Same as: Vancocin-NS (premixed) Infusion rate 2000 mg: infuse over 2.5 hours heparin 5,000 unit, 1 No Longer mL, Route: Active 2016 [facility] SUB-Q, Drug form: INJ, Q12H, Dosing Weight 129, kg, Start date: 06/20/17 21:00:00 CDT, Duration: 30 day, Stop date: 07/20/17 9:00:00 CDTNotes: porcine heparin Robaxin 750 mg, 1 No Longer tab, Route: Active 2016 [facility] PO, Drug form: TAB, TID, Dosing Weight 129, kg, Start date: 06/20/17 21:00:00 CDT, Duration: 30 day, Stop date: 07/20/17 13:00:00 CDTNotes: (Same as:Robaxin) cefepime 2 gm, Route: No Longer IVPB, ABXQ8H, Active 2016 [facility] Dosing Weight 129, kg, (CrCl >/=50 ml/min, 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 infection or neutropenic fever), Start date: 06/20/17 20:00:00 CDT, Duration: 10 day, Stop date: 06/30/17 12:00:00 CDT, ABX Indication: Bone/Joint InfectionNote s: (Same as: Maxipime) MEDICATION WASTE Product Size: 2000 mg Product Wasted: ___ mg Metformin 1,000 mg, 2 Inactive hydrochloride tab, Route: 2016 1000 MG Oral PO, Drug Tablet form: TAB, BID-Meals, Dosing Weight 129, kg, Start date: 06/20/17 17:00:00 CDT, Duration: 30 day, Stop date: 07/20/17 8:00:00 CDTNotes: (Same as: Glucophage) Take with meal gabapentin 100 mg, 1 No Longer cap, Route: Active 2016 [facility] PO, Drug form: CAP, Q8H, Dosing Weight 129, kg, Start date: 06/20/17 16:00:00 CDT, Duration: 30 day, Stop date: 07/20/17 8:00:00 CDTNotes: (Same as: Neurontin) Zosyn 3.375 gm, Inactive Route: IVPB, 2016 [facility] ABXQ8H, Dosing Weight 129, kg, CrCl >=20 ml/min infuse over 4 hours, Start date: 06/20/17 14:00:00 CDT, Duration: 7 day, Stop date: 06/27/17 6:00:00 CDT, ABX 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 dural AbcessNotes: (Same as: Zosyn) Dosing based on Piperacillin component MEDICATION WASTE Product Size: 3375 mg Product Wasted: ___ mg Vancomycin 1 ea, Route: Inactive MEL SALDAÑA, 2016 [facility] Dosing Weight 129, kg, Start date: 06/20/17 13:00:00 CDT, day, Stop date: 06/20/17 13:00:00 CDT, Pharmacy to dose, ABX 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 dural Abcess vancomycin + 2,500 mg, Inactive sodium chloride Route: IVPB2016 0.9% 500 mL INJ ONCE, Start (for IV set) 500 date: mL 06/20/17 13:00:00 CDT, Stop date: 06/20/17 13:00:00 CDT, ABX 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 dural AbcessNotes: TIME CRITICAL MEDICATION (Same As: Vancocin) Infusion rate 2001 mg: infuse over 2.5 hours MEDICATION WASTE Product Size: 1000 mg Product Wasted: ___ mg Ativan 1 mg, 0.5 mL, No Longer Route: IVP, Active 2016 [facility] Drug form: INJ, ONCALL, Dosing Weight 129, kg, PRN Other -See Comment, Start date: 06/20/17 12:28:00 CDT, Stop date: 07/20/17 12:27:00 CDT, prior to MRINotes: (Same as: Ativan) Insulin Lispro 4 unit, 0.04 No Longer mL, Route: Active 2016 [facility] SUB-Q, Drug form: SOLN, Bedtime, Dosing Weight 129, kg, PRN Blood Glucose Results, Start date: 06/20/17 12:07:00 CDT, Duration: 30 day, Stop date: 07/20/17 12:06:00 CDTNotes: Roll in palms of hands gently; Do not shake `vigorously. (Same as: Humalog ) "Single Patient Use Only " WASTE: F/P - Black; E - Municipal Trash Bin Stable for 28 days at room temperature. Expires in days from _Date Glucagon 1 mg, Route: No Longer IM, Drug Active 2016 [facility] form: PDR/INJ, PRN, Dosing Weight 129, kg, PRN Blood Glucose Results, Start date: 06/20/17 12:07:00 CDT, Duration: 30 day, Stop date: 07/20/17 12:06:00 CDT Dextrose 50% 25 gm, 50 mL, No Longer Syringe Route: IVP, Active 2016 [facility] Drug Form: INJ, Dosing Weight 129, kg, PRN, PRN Blood Glucose Results, Start date: 06/20/17 12:07:00 CDT, Duration: 30 day, Stop date: 07/20/17 12:06:00 CDT Robaxin 1,000 mg, 10 Inactive mL, Route: 2016 [facility] IV, Drug form: INJ, ONCE, Dosing Weight 129, kg, Start date: 06/20/17 12:04:00 CDT, Stop date: 06/20/17 12:04:00 CDTNotes: (Same as:Robaxin) Acetaminophen 2 tab, Route: Inactive 325 MG / PO, Drug 2016 [facility] Hydrocodone Form: TAB, Bitartrate 10 MG Dosing Weight Oral Tablet 129, kg, Q4H, [[place] 10/325] PRN Pain Score 7-10, Start date: 06/20/17 12:03:00 CDT, Duration: 30 day, Stop date: 07/20/17 12:02:00 CDTNotes: Do not exceed 4gm/day of acetaminophen . (Same as: [place] 325/10) Dilaudid 1 mg, 1 mL, Inactive Route: IV, 2016 [facility] Drug form: INJ, Q3H, Dosing Weight 129, kg, PRN Pain Score 6-10, Start date: 06/20/17 12:02:00 CDT, Duration: 30 day, Stop date: 07/20/17 12:01:00 CDT Tramadol 50 mg, 1 tab, No Longer Route: PO, Active 2016 [facility] Drug form: TAB, Q6H, Dosing Weight 129, kg, Start date: 06/20/17 12:00:00 CDT, Duration: 30 day, Stop date: 07/20/17 6:00:00 CDTNotes: Not to exceed 400mg/day. (Same As: Ultram) Insulin regular 10 unit, 0.1 Inactive mL, Route: 2016 [facility] IVP, Drug form: INJ, ONCE, Dosing Weight 129, kg, Start date: 06/20/17 11:14:00 CDT, Stop date: 06/20/17 11:14:00 CDTNotes: (Same as: Humulin R and NovoLIN R) WASTE: F/P - Black; E - Municipal Trash Bin (Do not shake) Calcium 2 gm, 20 mL, Inactive Gluconate Route: IV, 2016 [facility] ONCE, Dosing Weight 129, kg, Start date: 06/20/17 11:14:00 CDT, Stop date: 06/20/17 11:14:00 CDTNotes: WASTE: F/P - Sink; E - Municipal Trash Bin Sodium 30 gm, 120 Inactive polystyrene mL, Route: 2016 [facility] sulfonate PO, Drug form: SUSP, ONCE, Dosing Weight 129, kg, Start date: 06/20/17 11:14:00 CDT, Duration: 1 doses or times, Stop date: 06/20/17 11:14:00 CDTNotes: (sodium polystyrene sulfonate 15 gm/60 ml KEDAR) Shake well before use. (Same as: Kayexalate, SPS) Dextrose 50% 25 gm, 50 mL, Inactive Syringe Route: IVP, 2016 [facility] Drug Form: INJ, Dosing Weight 129, kg, ONCE, Start date: 06/20/17 11:14:00 CDT, Stop date: 06/20/17 11:14:00 CDT gabapentin 300 300 mg, 1 Inactive MG Oral Capsule cap, Route: 2016 [facility] PO, Drug form: CAP, Q8Hnow, Dosing Weight 129, kg, Start date: 06/20/17 9:00:00 CDT, Duration: 30 day, Stop date: 07/20/17 1:00:00 CDTNotes: (Same as: Neurontin) metoprolol 25 mg, 1 tab, No Longer tartrate Route: PO, Active 2016 [facility] Drug form: TAB, Q12H, Dosing Weight 129, kg, Start date: 06/20/17 9:00:00 CDT, Duration: 30 day, Stop date: 07/19/17 21:00:00 CDTNotes: (Same as: Lopressor) Morphine 2 mg, 1 mL, Inactive Route: IVP, 2016 [facility] Drug form: INJ, Q4H, Dosing Weight 129, kg, PRN Chest Pain, Start date: 06/20/17 8:19:00 CDT, Duration: 30 day, Stop date: 07/20/17 8:18:00 CDTNotes: (Same as:MORPhine Sulfate) lisinopril 20 mg 20 mg=1 tab, Active oral tablet PO, Daily, 0 2016 [facility] Refill(s) Dilaudid 0.5 mg, 0.5 Inactive mL, Route: 2016 [facility] IVP, Drug form: INJ, Q4H, Dosing Weight 129, kg, PRN Pain Score 7-10, Start date: 06/20/17 5:10:00 CDT, Duration: 30 day, Stop date: 07/20/17 5:09:00 CDT Saline Flush 10 ml, Route: No Longer 0.9% IVP, Drug Active 2016 [facility] Form: INJ, Dosing Weight 129.545, kg, PRN, PRN Line Flush, Start date: 06/20/17 2:45:00 CDT, Duration: 30 day, Stop date: 07/20/17 2:44:00 CDTNotes: (Same as: BD Posiflush) sodium chloride 1,000 mL, No Longer 0.9% 1000 ml INJ Rate: 125 Active 2016 [facility] 1,000 mL ml/hr, Infuse over: 8 hr, Route: IV, Dosing Weight 129.545 kg, Total Volume: 1,000, Start date: 06/20/17 2:45:00 CDT, Duration: 30 day, Stop date: 07/20/17 2:44:00 CDT Ondansetron 4 mg, 2 mL, No Longer Route: IVP, Active 2016 [facility] Drug form: INJ, Q6H, Dosing Weight 129.545, kg, PRN Nausea & Vomiting, Start date: 06/20/17 2:45:00 CDT, Duration: 30 day, Stop date: 07/20/17 2:44:00 CDTNotes: (Same as: Zofran) MEDICATION WASTE Product Size: 4 mg Product Wasted: ___ mg Morphine 4 mg, 1 mL, Inactive Route: IVP, 2016 [facility] Drug form: SOLN, Q4H, Dosing Weight 129.545, kg, PRN Pain Score 7-10, Start date: 06/20/17 2:45:00 CDT, Duration: 30 day, Stop date: 07/20/17 2:44:00 CDTNotes: (Same as:MORPhine Sulfate) Acetaminophen 650 mg, 2 No Longer tab, Route: Active 2016 [facility] PO, Drug form: TAB, Q4H, Dosing Weight 129.545, kg, PRN Pain 1-3/Temp > 100.4 F, Start date: 06/20/17 2:45:00 CDT, Duration: 30 day, Stop date: 07/20/17 2:44:00 CDTNotes: Do not exceed 4 gm/day. (Same as: Tylenol) Morphine 10 mg, 2.5 No Longer mL, Route: Active 2016 [place] IVP, Drug form: SOLN, ONCE, Dosing Weight 129.545, kg, Priority: STAT, Start date: 06/19/17 22:50:00 CDT, Stop date: 06/19/17 22:50:00 CDTNotes: (Same as: MORPhine Sulfate) Valium 10 mg, 2 mL, No Longer Route: IVP, Active 2016 [place] Drug form: INJ, ONCE, Dosing Weight 129.545, kg, Priority: STAT, Start date: 06/19/17 22:48:00 CDT, Stop date: 06/19/17 22:48:00 CDTNotes: (Same as: Valium) WASTE: F/P - Black; E - White/Blue sodium chloride 1,000 mL, No Longer 0.9% 1000 ml INJ Rate: 999 Active 2016 [place] 1,000 mL ml/hr, Infuse over: 1 hr, Route: IV, Dosing Weight 129.545 kg, Total Volume: 1,000, Start date: 06/19/17 22:48:00 CDT, Duration: 30 day, Stop date: 07/19/17 22:47:00 CDT Benadryl 50 mg, 1 mL, No Longer Route: IVP, Active 2016 [place] Drug form: INJ, ONCE, Dosing Weight 129.545, kg, Priority: STAT, Start date: 06/19/17 22:48:00 CDT, Stop date: 06/19/17 22:48:00 CDTNotes: (Same as: Benadryl) Opana ER (Schedule II Oral Active 10 MG Oral Garza 2.16.840.1 Drug) TAKE 1 .068474.4. TABLET BY 391.11.225 MOUTH EVERY 68 12 HOURS FOR PAIN Metformin HCl TK 1 T PO BID Oral Active 500 MG Oral Garza 2.16.840.1 .270747.4. 391.11.225 68 Methocarbamol TAKE 1 TO 2 Oral Active 500 MG Oral Garza 2.16.840.1 TABLETS BY .117438.4. MOUTH EVERY 8 391.11.225 HOURS 68 NEEDED FOR MUSCLE SPASM 5 DAYS Duexis TAKE 1 TABLET Oral Active 800-26.6 MG Garza 2.16.840.1 BY MOUTH 3 Oral .294515.4. TIMES A DAY 391.11.225 FOR 30 DAYS 68 Rifampin 1 capsule PO Active 300 MG PO Garza 2.16.840.1 twice a day .416726.4. (bid) 391.11.225 68 Cefazolin in D5W not defined NA Active Garza 2.16.840.1 .188097.4. 391.11.225 68 Lisinopril TK 1 T PO QD Oral Active 5 MG Oral Garza 2.16.840.1 .622374.4. 391.11.225 68 Warfarin Sodium TK 1 T PO Oral Active 7.5 MG Oral Garza 2.16.840.1 NIGHT BEFORE .795772.4. SURGERY 391.11.225 68 Cyclobenzaprine TK 1 T PO Q 8 Oral Active 10 MG Oral Garza 2.16.840.1 HCl H PRN MUSCLE .209260.4. SPASMS 391.11.225 68 Atorvastatin TK 1 T PO QD Oral Active 20 MG Oral Garza 2.16.840.1 Calcium .385650.4. 391.11.225 68 Doxycycline 1 capsule Orally Active 100 MG Orally Garza 2.16.840.1 Hyclate every 12 hrs .406153.4. 391.11.225 68 Meloxicam TK 1 T PO BID Oral Active 7.5 MG Oral Garza 2.16.840.1 .507674.4. 391 68 Xarelto TK 1 T PO Q Oral Active 10 MG Oral Garza 2.16.840.1 24 HOURS FOR .331850.4. 13 DAYS 391 68 Hydrocodone-Acet (Schedule II Oral Active 10-325 MG Garza 2.16.840.1 aminophen Drug) TAKE 1 Oral .473089.4. TABLET BY 391..225 MOUTH EVERY 6 68 HOURS NEEDED FOR PAIN Gabapentin TAKE 1 TABLET Oral Active 800 MG Oral Garza 2.16.840.1 BY MOUTH 3 .039711.4. TIMES A DAY 391.11.225 FOR 30 DAYS 68 Oxymorphone HCl (Schedule II Oral Active 5 MG Oral Garza 2.16.840.1 Drug) TAKE 1 .145804.4. TABLET BY ..225 MOUTH EVERY 6 68 HOURS NEEDED FOR PAIN Keflex 1 tablet Orally Active 500 MG Orally Garza 2.16.840.1 every 6 hrs .111490.4. 391 68 Allergies, Adverse Reactions, Alerts Substance Category Reaction Severity Reaction Status Date Comments Source type Reported N.K.D.A. 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 Follow-up. COMPARISON: MRI spine dated 06/25/2017 TECHNIQUE: Helical acquisition of the thoracic and lumbar spine was obtained following the intrathecal administration of contrast. No intravenous contrast was administered. Reformatted axial, coronal, a nd sagittal images were provided for review. CT Radiation Dose: LEQ=1787 mGy-cm. FINDINGS: CT THORACIC SPINE: The normal thoracic kyphosis is preserved. No abnormalities in sagittal alignment are identified. The vertebral body disc space heights are maintained throughout the thoracic spine. Degenerative changes within the lower cervical spine are partially visualized. There is a shallow right paracentral disc protrusion at the T8-T9 without spinal canal stenosis, best characterized on series 3 image 80. Postsurgical changes related to a left hemilaminectomy at T11-T12 have been performed, with evacuation of previously described epidural abscess. No residual epidural fluid collection or mass effect on t he spinal canal is identified at this time. The thoracic cord demonstrates a normal caliber. The spinal canal is congenitally narrowed. No intraspinal soft tissue masses are present. A small surgical sc ar is noted within the posterior subcutaneous tissues without evidence for a seroma. The paraspinal musculature appears grossly unremarkable. CT LUMBAR SPINE: The normal lumbar lordosis is preserved. No abnormalities in sagittal alignment are identified. The vertebral body heights are maintained throughout the lumbar spine without evidence for fracture. Postsurgical changes are noted within the lower lumbar spine, with paired transpedicular screws noted at L4-L5 and L5-S1, stabilized by vertical rods. Intervertebral disc spacers as well as an anterior cortical screw within the upper sacrum are also visualized. Partial ankylosis across the L4-L5 and L5-S1 disc space is noted. The spinal canal is congenitally narrowed. Moderate to severe spinal canal stenosis is noted at L3-L4, likely secondary to the presence of a right-sided synovial cyst, facet arthropathy, and hypertrophy of the ligamentum flavum at this level, series 3 image 49. Mild bilateral neural foraminal stenosis is noted at L4-L5. Moderate to severe left and moderate right neural foraminal stenosis present at L5 -S1. No other areas of significant spinal canal or neural foraminal stenosis are present throughout the lumbar spine. Mild subcutaneous edema is present within the posterior soft tissues. Minimal atherosclerotic calcification of the aorta and common iliac arteries is noted without aneurysmal dilatation. Degenerative ch anges of the sacroiliac joints are visualized. A bone island is noted within the right greater iliac wing. IMPRESSION: 1. Interval postsurgical changes related to a left hemilaminectomy at T11- T12 with evacuation of the previously epidural abscess. No residual epidural fluid collection or mass effect on the thoracic cord is visualized. 2. Moderate to severe spinal canal stenosis at L3-L4, predominantly secondary to a right-sided synovial cyst and hypertrophy of the ligamentum flavum. Findings are superimposed on a congenitally narrowe d spinal canal although no other areas of significant spinal canal stenosis are present. 3. Mild bilateral neural foraminal stenosis at L4-L5 as well as moderate to severe left and moderate right neural foraminal stenosis at L5-S1. Lower lumbar fusion and posterior stabilization appears satisfactory. 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 Follow-up. COMPARISON: MRI spine dated 06/25/2017 TECHNIQUE: Helical acquisition of the thoracic and lumbar spine was obtained following the intrathecal administration of contrast. No intravenous contrast was administered. Reformatted axial, coronal, a nd sagittal images were provided for review. CT Radiation Dose: CSH=2302 mGy-cm. FINDINGS: CT THORACIC SPINE: The normal thoracic kyphosis is preserved. No abnormalities in sagittal alignment are identified. The vertebral body disc space heights are maintained throughout the thoracic spine. Degenerative changes within the lower cervical spine are partially visualized. There is a shallow right paracentral disc protrusion at the T8-T9 without spinal canal stenosis, best characterized on series 3 image 80. Postsurgical changes related to a left hemilaminectomy at T11-T12 have been performed, with evacuation of previously described epidural abscess. No residual epidural fluid collection or mass effect on t he spinal canal is identified at this time. The thoracic cord demonstrates a normal caliber. The spinal canal is congenitally narrowed. No intraspinal soft tissue masses are present. A small surgical sc ar is noted within the posterior subcutaneous tissues without evidence for a seroma. The paraspinal musculature appears grossly unremarkable. CT LUMBAR SPINE: The normal lumbar lordosis is preserved. No abnormalities in sagittal alignment are identified. The vertebral body heights are maintained throughout the lumbar spine without evidence for fracture. Postsurgical changes are noted within the lower lumbar spine, with paired transpedicular screws noted at L4-L5 and L5-S1, stabilized by vertical rods. Intervertebral disc spacers as well as an anterior cortical screw within the upper sacrum are also visualized. Partial ankylosis across the L4-L5 and L5-S1 disc space is noted. The spinal canal is congenitally narrowed. Moderate to severe spinal canal stenosis is noted at L3-L4, likely secondary to the presence of a right-sided synovial cyst, facet arthropathy, and hypertrophy of the ligamentum flavum at this level, series 3 image 49. Mild bilateral neural foraminal stenosis is noted at L4-L5. Moderate to severe left and moderate right neural foraminal stenosis present at L5 -S1. No other areas of significant spinal canal or neural foraminal stenosis are present throughout the lumbar spine. Mild subcutaneous edema is present within the posterior soft tissues. Minimal atherosclerotic calcification of the aorta and common iliac arteries is noted without aneurysmal dilatation. Degenerative ch anges of the sacroiliac joints are visualized. A bone island is noted within the right greater iliac wing. IMPRESSION: 1. Interval postsurgical changes related to a left hemilaminectomy at T11- T12 with evacuation of the previously epidural abscess. No residual epidural fluid collection or mass effect on the thoracic cord is visualized. 2. Moderate to severe spinal canal stenosis at L3-L4, predominantly secondary to a right-sided synovial cyst and hypertrophy of the ligamentum flavum. Findings are superimposed on a congenitally narrowe d spinal canal although no other areas of significant spinal canal stenosis are present. 3. Mild bilateral neural foraminal stenosis at L4-L5 as well as moderate to severe left and moderate right neural foraminal stenosis at L5-S1. Lower lumbar fusion and posterior stabilization appears satisfactory. SL: [id number] Spine Spine lumbar The results of this study were reported on accession number . Please refer to that report. 09/05 lumbar myelogram DX /2016 myelogram DX Read by: Bob oPsey MD Dictated Date/time: 09/05/17 15:44 Electronically Signed by: Bob Posey MD 09/05/17 15:47 FINAL REPORT Spine Spine Patient Name: MARIA ESTHER CHAUDHARY 09/05 thoracic thoracic /2016 myelogram myelogram DX : 1960; Age: 56 years y/o Male DX MR: [id number] Read by: Bob Posey MD Dictated Date/time: 09/05/17 10:25 Electronically Signed by: Bob Posey MD 09/05/17 10:28 FINAL REPORT PROCEDURE: Fluoroscopically guided lumbar puncture and contrast injection for thoracic and lumbar CT myelography. PHYSICIAN PROVIDING SERVICE: Bob Posey M.D. HISTORY: Back pain, 606.2, epidural abscess. CONSENT: The procedure, risks, benefits and alternatives were discussed with the patient and written informed consent was obtained. TECHNIQUE: Preliminary fluoroscopy of the lumbar region was performed. A suitable location at L3-L4 was chosen. A generous portion of the lumbar region was prepped with Betadine and draped. The procedure was performed under local anesthesia utilizing 1% lidocaine. A 20-gauge spinal needle was advanced into the l umbar spinal canal under fluoroscopic guidance at the L3-L4 level through a laminectomy defect. Following backflow spinal fluid, approximately 15 mL of Omnipaque 180 was injected into the lumbar thecal sac under careful fluoroscopic guidance. The needle was then removed without difficulty. The fluoroscopy time was: 78 seconds. Radiation dose: 84 mGy. The patient tolerated the procedure well and suffered no immediate complications. The patient was then transferred to the CT suite for CT myelography. IMPRESSION: Fluoroscopically guided lumbar puncture and contrast injection for CT myelography. Please refer to a separate CT myelogram report. SL: [id number] Chest 2 Chest 2 Study: Chest 2 views DX 07/14 - views DX views - [facility] Clinical Indication: - Z09 Encounter for follow-up examination after completed treatment for conditions other than malignant neoplasm Read by : Pedro Mayfield MD Dictated Date/time: 07/14/17 10:23 Electronically Signed by: Pedro Mayfield MD 07/14/17 10:24 FINAL REPORT Comparison: Chest x-ray from 06/27/2017 FINDINGS: Multiple surgical skin brad overlie the upper anterior chest. Overlying surgical drain is seen. Left-sided PICC line is stable. Cardiac silhouette is normal in size. Lungs are without conso lidation or congestion. No pleural effusion or pneumothorax is seen. The osseous structures are unremarkable. IMPRESSION: No acute cardiopulmonary disease. Recent postoperative changes of the upper chest. SL: [id number] CHEM PANEL eGFR 88 07/01 Result Comment: The eGFR is calculated using the CKD-EPI formula. In most young, healthy individuals the eGFR will be >90 mL/ min/1.73m2. The eGFR declines with age. An eGFR of 60-89 may be normal in MH mL/min/1.7 /2016 some populations, particularly the elderly, for whom the CKD-EPI formula has not been extensively validated. Use of the eGFR is not recommended in the following populations: [facility] 3m2 Individuals with unstable creatinine concentrations, including patients and those with serious co-morbid conditions. Patients with extremes in muscle mass or diet. The data above are obtained from the National Kidney Disease Education Program (NKDEP) which additionally recommends that when the eGFR is used in patients with extremes of body mass index for purposes of drug dosing, the eGFR should be multiplied by the estimated BMI. CHEM PANEL Potassium 4.2 meq/L 3.5 - 5.1 07/01 Lvl /2016 [facility] CHEM PANEL Chloride Lvl 96 meq/L 95 - 109 07/01 [facility] CHEM PANEL CO2 30 meq/L 24 - 32 07/01 [facility] CHEM PANEL Calcium Lvl 8.8 mg/dL 8.5 - 10.5 07/01 [facility] CHEM PANEL Glucose Lvl 235 mg/dL 70 - 99 07/01 [facility] CHEM PANEL BUN 12 mg/dL 7 - 22 07/01 [facility] CHEM PANEL Creatinine 0.95 mg/dL 0.50 - 07/01 Lvl 1.40 /2016 [facility] CHEM PANEL Sodium Lvl 135 meq/L 135 - 145 07/01 [facility] CHEM PANEL AGAP 13.2 meq/L 10.0 - 07/01 MH 20.0 [facility] HEMATOLOGY MCHC 32.6 g/dL 32.0 - 07/01 MH 36.0 [facility] HEMATOLOGY MCH 26.3 pg 27.0 - 07/01 MH 31.0 [facility] HEMATOLOGY MCV 80.5 fL 80.0 - 07/01 MH 94.0 [facility] HEMATOLOGY Hct 31.2 % 42.0 - 07/01 MH 54.0 [facility] HEMATOLOGY Hgb 10.2 g/dL 14.0 - 07/01 18.0 [facility] HEMATOLOGY RBC 3.87 M/CMM 4.70 - 09 MH 6.10 [facility] HEMATOLOGY MPV 7.5 fL 7.4 - 10.4 07/01 [facility] HEMATOLOGY Platelet 374 K/CMM 133 - 450 07/01 [facility] HEMATOLOGY RDW 14.7 % 11.5 - 07/01 MH 14.5 [facility] HEMATOLOGY WBC 4.9 K/CMM 3.7 - 10.4 07/01 [facility] HEMATOLOGY Eosinophils 0.2 K/CMM 0.0 - 0.5 07/01 # /2016 [facility] HEMATOLOGY Monocytes # 0.2 K/CMM 0.0 - 0.8 07/01 [facility] HEMATOLOGY Basophils 0.7 % 0.0 - 1.0 07/01 [facility] HEMATOLOGY Eosinophils 3.8 % 0.0 - 4.0 07/01 [facility] HEMATOLOGY Monocytes 4.9 % 2.0 - 12.0 07/01 [facility] HEMATOLOGY Lymphocytes 1.4 K/CMM 1.0 - 5.5 07/01 # /2016 [facility] HEMATOLOGY Segs-Bands # 3.0 K/CMM 1.5 - 8.1 07/01 [facility] HEMATOLOGY Lymphocytes 29.4 % 20.0 - 07/01 MH 40.0 [facility] HEMATOLOGY Segs 61.2 % 45.0 - 07/01 MH 75.0 [facility] HEMATOLOGY RDW 14.5 % 11.5 - 06/30 MH 14.5 [facility] HEMATOLOGY MPV 7.2 fL 7.4 - 10.4 06/30 [facility] HEMATOLOGY Platelet 366 K/CMM 133 - 450 06/30 [facility] HEMATOLOGY Hct 29.3 % 42.0 - 06/30 MH 54.0 [facility] HEMATOLOGY RBC 3.59 M/CMM 4.70 - 06/30 MH 6.10 [facility] HEMATOLOGY Hgb 9.6 g/dL 14.0 - 06/30 MH 18.0 [facility] HEMATOLOGY WBC 5.5 K/CMM 3.7 - 10.4 06/30 [facility] HEMATOLOGY MCHC 32.7 g/dL 32.0 - 06/30 MH 36.0 [facility] HEMATOLOGY MCV 81.5 fL 80.0 - 06/30 MH 94.0 [facility] HEMATOLOGY MCH 26.7 pg 27.0 - 06/30 MH 31.0 [facility] HEMATOLOGY Lymphocytes 1.7 K/CMM 1.0 - 5.5 06/30 # /2016 [facility] HEMATOLOGY Monocytes # 0.3 K/CMM 0.0 - 0.8 06/30 [facility] HEMATOLOGY Eosinophils 0.2 K/CMM 0.0 - 0.5 06/30 MH # /2017 [facility] HEMATOLOGY Basophils 0.8 % 0.0 - 1.0 06/30 [facility] HEMATOLOGY Segs-Bands # 3.2 K/CMM 1.5 - 8.1 06/30 [facility] HEMATOLOGY Monocytes 5.9 % 2.0 - 12.0 06/30 [facility] HEMATOLOGY Eosinophils 3.0 % 0.0 - 4.0 06/30 [facility] HEMATOLOGY Lymphocytes 31.6 % 20.0 - 06/30 MH 40.0 [facility] HEMATOLOGY Segs 58.7 % 45.0 - 06/30 MH 75.0 [facility] CHEM PANEL eGFR 134 06/28 Result Comment: The eGFR is calculated using the CKD-EPI formula. In most young, healthy individuals the eGFR will be >90 mL/ min/1.73m2. The eGFR declines with age. An eGFR of 60-89 may be normal in mL/min/1. some populations, particularly the elderly, for whom the CKD-EPI formula has not been extensively validated. Use of the eGFR is not recommended in the following populations: [facility] 3m2 Individuals with unstable creatinine concentrations, including patients and those with serious co-morbid conditions. Patients with extremes in muscle mass or diet. The data above are obtained from the National Kidney Disease Education Program (NKDEP) which additionally recommends that when the eGFR is used in patients with extremes of body mass index for purposes of drug dosing, the eGFR should be multiplied by the estimated BMI. CHEM PANEL AGAP 10.3 meq/L 10.0 - 06/28 MH 20.0 [facility] CHEM PANEL Calcium Lvl 6.3 mg/dL 8.5 - 10.5 06/28 Result Comment: [facility] Critical Result(s) called to Silvestre Chowdary at 06/28/2017 06:46 by nf. Read back OK. CHEM PANEL Glucose Lvl 99 mg/dL 70 - 99 06/28 [facility] CHEM PANEL Creatinine 0.54 mg/dL 0.50 - 06/28 MH Lvl 1.40 /2016 [facility] CHEM PANEL BUN 7 mg/dL 7 - 22 06/28 [facility] CHEM PANEL Chloride Lvl 113 meq/L 95 - 109 06/28 [facility] CHEM PANEL Potassium 3.3 meq/L 3.5 - 5.1 06/28 MH Lvl /2016 [facility] CHEM PANEL CO2 23 meq/L 24 - 32 06/28 [facility] CHEM PANEL Sodium Lvl 143 meq/L 135 - 145 06/28 [facility] HEMATOLOGY WBC 7.3 K/CMM 3.7 - 10.4 06/28 /2016 [facility] HEMATOLOGY RBC 3.18 M/CMM 4.70 - 06/28 MH 6.10 [facility] HEMATOLOGY Platelet 291 K/CMM 133 - 450 06/28 [facility] HEMATOLOGY RDW 14.7 % 11.5 - 06/28 MH 14.5 /2016 [facility] HEMATOLOGY MPV 7.5 fL 7.4 - 10.4 06/28 [facility] HEMATOLOGY Hct 26.0 % 42.0 - 06/28 MH 54.0 [facility] HEMATOLOGY Hgb 8.5 g/dL 14.0 - 06/28 MH 18.0 [facility] HEMATOLOGY MCV 81.9 fL 80.0 - 06/28 MH 94.0 [facility] HEMATOLOGY MCH 26.8 pg 27.0 - 06/28 MH 31.0 [facility] HEMATOLOGY MCHC 32.8 g/dL 32.0 - 06/28 MH 36.0 [facility] HEMATOLOGY Basophils 0.5 % 0.0 - 1.0 06/28 /2016 [facility] HEMATOLOGY Monocytes # 0.3 K/CMM 0.0 - 0.8 06/28 /2016 [facility] HEMATOLOGY Lymphocytes 1.0 K/CMM 1.0 - 5.5 06/28 MH # /2016 [facility] HEMATOLOGY Segs-Bands # 5.9 K/CMM 1.5 - 8.1 06/28 [facility] HEMATOLOGY Eosinophils 0.1 K/CMM 0.0 - 0.5 06/28 MH # /2016 [facility] HEMATOLOGY Eosinophils 1.3 % 0.0 - 4.0 06/28 /2016 [facility] HEMATOLOGY Segs 80.5 % 45.0 - 06/28 MH 75.0 /2016 [facility] HEMATOLOGY Monocytes 3.9 % 2.0 - 12.0 06/28 /2016 [facility] HEMATOLOGY Lymphocytes 13.8 % 20.0 - 06/28 MH 40.0 /2016 [facility] BLOOD BANK ABO/Rh A POS 06/27 RESULTS /2016 [facility] BLOOD BANK Antibody Negative 06/27 RESULTS Scrn /2016 [facility] (06/27/17 9:20 AM) Chest Chest 1view Patient Name: MARIA ESTHER CHAUDHARY 06/27 - 1view DX DX - [facility] : 1960; Age: 56 years y/o Male MR: [id number] Read by: Narendra Burch MD Dictated Date/time: 06/27/17 14:30 Electronically Signed by: Narendra Burch MD 06/27/17 14:31 FINAL REPORT Study: Chest 1view DX 06/27/2017 1:43 PM CDT Ordering Physician: Olayinka Johnson MD Clinical Indication: - sternoclavicular debridement; Comparison: 06/26/2017 1 view chest IMPRESSION: Skin brad overlie the lower thoracic midline. There is mild dependent pulmonary atelectasis, low lung volumes. No pleural effusion or pneumothorax. Cardiomediastinal silhouette is stable from previous. Left arm PICC terminates at the SVC. SL: TICO- CHEM PANEL Phosphorus 2.9 mg/dL 2.5 - 4.5 06/26 [facility] CHEM PANEL Magnesium 2.5 mg/dL 1.8 - 2.4 06/26 Lvl /2016 [facility] CHEM PANEL eGFR 95 06/26 Result Comment: The eGFR is calculated using the CKD-EPI formula. In most young, healthy individuals the eGFR will be >90 mL/ min/1.73m2. The eGFR declines with age. An eGFR of 60-89 may be normal in mL/min/1.2017 some populations, particularly the elderly, for whom the CKD-EPI formula has not been extensively validated. Use of the eGFR is not recommended in the following populations: [facility] 3m2 Individuals with unstable creatinine concentrations, including patients and those with serious co-morbid conditions. Patients with extremes in muscle mass or diet. The data above are obtained from the National Kidney Disease Education Program (NKDEP) which additionally recommends that when the eGFR is used in patients with extremes of body mass index for purposes of drug dosing, the eGFR should be multiplied by the estimated BMI. CHEM PANEL CO2 28 meq/L 24 - 32 06/26 [facility] CHEM PANEL Calcium Lvl 8.5 mg/dL 8.5 - 10.5 06/26 [facility] CHEM PANEL ALT 43 unit/L 0 - 65 06/26 [facility] CHEM PANEL AST 26 unit/L 0 - 37 06/26 [facility] CHEM PANEL Albumin Lvl 2.1 g/dL 3.5 - 5.0 06/26 [facility] CHEM PANEL Total 7.2 g/dL 6.4 - 8.4 06/26 Protein [facility] CHEM PANEL Bili Total 0.2 mg/dL 0.2 - 1.3 06/26 [facility] CHEM PANEL Alk Phos 237 unit/L 39 - 136 06/26 [facility] CHEM PANEL Creatinine 1.00 mg/dL 0.50 - 06/26 Lvl 1.40 /2016 [facility] CHEM PANEL Sodium Lvl 136 meq/L 135 - 145 06/26 [facility] CHEM PANEL Chloride Lvl 101 meq/L 95 - 109 06/26 [facility] CHEM PANEL Potassium 4.1 meq/L 3.5 - 5.1 06/26 Lvl /2016 [facility] CHEM PANEL BUN 9 mg/dL 7 - 22 06/26 [facility] CHEM PANEL Glucose Lvl 136 mg/dL 70 - 99 06/26 [facility] CHEM PANEL AGAP 11.1 meq/L 10.0 - 06/26 MH 20.0 [facility] CHEM PANEL B/C Ratio 9 6 - 25 06/26 [facility] CHEM PANEL A/G Ratio 0.4 0.7 - 1.6 06/26 [facility] CHEM PANEL Globulin 5.1 g/dL 2.7 - 4.2 06/26 [facility] HEMATOLOGY INR 1.12 0.85 - 06/26 1.17 [facility] HEMATOLOGY PT 14.6 s 12.0 - 06/26 MH 14.7 [facility] HEMATOLOGY Basophils # 0.1 K/CMM 0.0 - 0.2 06/26 [facility] Chest w Chest w EXAM: CT CHEST WITH CONTRAST 06/[address] /2016 - [facility] CT DATE: 06/26/2017 3:26 PM CDT Read by: Ace Norton MD Dictated Date/time: 06/26/17 21:33 Electronically Signed by: Ace Norton MD 06/26/17 21:44 FINAL REPORT INDICATION: Right sternoclavicular swelling. COMPARISON: 06/21/2017. TECHNIQUE: Helical CT imaging of the chest was performed from thoracic inlet through the lung bases following the administration of intravenous contrast. Axial, sagittal and coronal multiplanar reconstructions provided. IV contrast: [address] Radiation Dose: YXV=618.74 mGy-cm FINDINGS: LUNGS AND PLEURA: Small bilateral pleural effusions with airspace consolidation of the lower lobes is noted. No pneumothorax or suspicious pulmonary masses are visualized. AIRWAY: Right posterolateral tracheal diverticulum, series 2 image 10. SYSTEMIC VESSELS: The thoracic aorta is normal in caliber without dissection or aneurysm. The great vessels appear unremarkable. A left PICC is noted in appropriate position. HEART: The cardiac chambers are unremarkable. There is no pericardial effusion. MEDIASTINUM: There is redemonstration of abnormal retrosternal soft tissue density, similar appearance to previous examination. No drainable fluid collections are visualized at this time. VISUALIZED UPPER ABDOMEN: The visualized upper abdomen is within normal limits. OSSEOUS STRUCTURES: Degenerative changes are noted at the costochondral junction bilaterally. No significant degenerative change of the sternoclavicular joints is noted. Known epidural fluid collection is better characterized on prior MRI spine. SOFT TISSUE: Moderate inflammatory change within the right anterior chest wall adjacent to the pectoralis major muscle. Enlargement of the right pectoralis major muscle with a possible developing fluid collection is noted. A subcentimeter nodule is noted within the left thyroid gland. IMPRESSION: 1. Moderate inflammatory change within the right anterior chest wall associated with enlargement of the right pectoralis major muscle with a possible small developing fluid collection. Follow-up with ultrasound is recommended. 2. Additional extension of inflammatory change versus hemorrhage into the retrosternal soft tissues, similar in appearance to prior exam. 3. Small bilateral pleural effusions with nonenhancing airspace consolidation of the lower lobes, which may represent compressive atelectasis or pneumonia. 4. Known epidural fluid collection within the spinal canal is better characterized on magnetic resonance imaging. 5. Degenerative changes of the costochondral junction anteriorly. Sternoclavicular joints are unremarkable. 6. Left PICC in appropriate position. 7. Right posterolateral tracheal diverticulum. 8. Subcentimeter left thyroid nodule. SL: [id number] Biopsy Biopsy with Patient Name: MARIA ESTHER CHAUDHARY 06/26 - with ultrasound /2016 [facility] ultrasound guidance VR : 1960; Age: 56 years Male guidance VR MR: [id number] Read by: Dami Gilbert MD Dictated Date/time: 06/26/17 15:56 Study: Biopsy with ultrasound guidance VR 06/26/2017 2:37 PM CDT Electronically Signed by: Dami Gilbert MD 06/26/17 16 :00 FINAL REPORT PROCEDURE: Ultrasound-guided aspiration of a right periclavicular fluid collection. CLINICAL INFORMATION: Right periclavicular erythema and swelling COMPARISON: CT chest on 06/21/2017 CONSENT: The procedure, risks, benefits and alternatives were discussed with the patient and written informed consent was obtained. TECHNIQUE: ordering machine operator: Dr. Gilbert Preoperative diagnosis: Right periclavicular erythema and swelling Postoperative diagnosis: Same Estimated blood loss: Minimal Pain control: 1% lidocaine was administered for local anesthesia. The patient was placed in a supine position on the stretcher. Preprocedure ultrasound demonstrated a small fluid collection (approximately 1.5 x 1.5 cm) anterior to the right clavicular head. The right anterior chest wall was prepped and draped with sterile technique and the skin was anesthetized with 1% lidocaine. Under sterile ultrasound guidance, an 18-gauge needle was advanced into the right periclavicular fluid collection and approximately 10 mL of purulent fluid was aspirated. The needle was removed and sterile dressing applied. Postprocedure imaging demonstrated no immediate complication. Patient tolerated the procedure well and transferred to the floor in stable condition. IMPRESSION: Successful ultrasound-guided aspiration of a right periclavicular fluid collection. SL: [id number] Chest Chest 1view Study: Chest 1view DX 06/26/2017 1:24 PM CDT [facility] Patient Name: MARIA ESTHER CHAUDHARY MR: [id number] Read by: Collin Pradhan MD Dictated Date/time: 06/26/17 14:46 : 1960; Age: 56 years y/o Male Electronically Signed by: Collin Pradhan MD 06/26/17 14:47 FINAL REPORT Ordering Physician: Daron Bartholomew DO Clinical Indication: - STAT portable Chest X-ray post successful insertion. Indication: Correct Line Placement. Comparison: None FINDINGS LUNGS: The lungs are clear of consolidation, pleural effusion, and pneumothorax. Mild left basilar subsegmental atelectasis and scarring. The right hemidiaphragm is mildly elevated. HEART AND MEDIASTINUM: Normal size heart. LINES: Left PICC central venous catheter tip overlying the atriocaval junction. OSSEOUS STRUCTURES: No fracture, dislocation, or suspicious focal osseous lesion. OTHER: None. IMPRESSION: 1. Left PICC line tip overlying the atriocaval junction. SL: TPAINTER-PC Sternoclav Sternoclavic Patient Name: MARIAE STHER CHAUDHARY 06/26 - icular ular joint /2016 - joint DX DX : 1960; Age: 56 years y/o Male MR: [id number] Read by: Narendra Burch MD Dictated Date/time: 06/26/17 15:03 Electronically Signed by: Narendra Burch MD 06/26/17 15:05 FINAL REPORT Study: Sternoclavicular joint DX 06/26/2017 12:42 PM CDT Ordering Physician: Olayinka Johnson MD Clinical Indication: Other- See Note to Radiologist - CT guided or ultrasound guided aspiration of right sternoclavicular joint; Comparison: None 3 spot radiographic images of the right sternoclavicular joint are submitted. The radiographic images demonstrate no significant joint space widening, periarticular erosion or demineralization. There is mild subsegmental atelectasis in the left lung base. Lung hadley appear otherwise clear. Cardiomegaly. Left arm PICC terminates at the SVC. IMPRESSION: Radiographically unremarkable. SL: [id number] Spine Spine entire Patient Name: MARIA ESTHER CHAUDHARY 06/25 - entire w/wo - w/wo contrast MRI : 1960; Age: 56 years y/o Male contrast MRI MR: [id number] Read by: Rashard Newman MD Dictated Date/time: 06/25/17 16:27 Electronically Signed by: Rashard Newman MD 06/25/17 17:10 FINAL REPORT Study: Spine entire w/wo contrast MRI 06/25/2017 10:50 AM CDT Ordering Physician: Daron Bartholomew DO Comparison: None Clinical Indication: PAIN WITH LEUKOCYTOSIS. POSSIBLE ABCESS. - Per pt c/o upper and lower extremity weakness. Exam under anesthesia. Gerald; Cervical spine: Sagittal T2, fat-suppressed T2, T1 and axial T2 and gradient echo T2* weighted images were obtained. Postcontrast fat-suppressed axial and sagittal T1-weighted images were obtained. Cerv ical cord caliber and signal are normal. No cord compression. No abnormal signal within the disc spaces suggestive of discitis. No epidural or paraspinous mass or fluid collection is noted. No abnormal contrast enhancement is noted. Mild cervical spondylosis. No acute disc herniation is noted. Bilateral neural foraminal stenosis at C3-C4, C4-C5 and C5- C6. Thoracic spine:Sagittal T2, fat-suppressed T2, T1 and axial T2 weighted images were obtained. Postcontrast fat-suppressed axial and sagittal T1- weighted images were obtained. Epidural fluid collection w ith cystic loculations is noted extending from the level of T3 to the level of T11-T12 dorsally demonstrating enhancement consistent with an epidural abscess. There is ventral displacement of the thorac ic cord from T9 to T11 with mild cord compression at this segmental level. There is edema and enhancement of the paraspinous muscles adjacent to the lamina and spinous process from T10 to L1. An area of edema and enhancement is noted at the right side of the dorsal deep thoracic subcutaneous fat at the superior thorax (series 53, image 1). Thoracic vertebral body heights and interspaces are well-maint ained. There is no abnormal signal within the disc space to suggest thoracic discitis. Lumbar spine: Sagittal T2, fat-suppressed T2, T1 and axial T2-weighted images were obtained.Postcontrast fat-suppressed axial and sagittal T1-weighted images were obtained. Interbody fusion is present a t L4-L5 and L5-S1. Lumbar vertebral body heights and interspaces are otherwise well-maintained. Conus and cauda equina are unremarkable. Magnetic susceptibility artifact related to pedicular karissa and scr ew fixation at the lower lumbar spine is noted. This is accentuated on the fat-suppressed images. The caudal aspect of the epidural abscess extends to the level of T11-T12. There is edema and enhancemen t in the paraspinous soft tissues adjacent to the lamina and spinous processes at T12 and L1. Edema at the deep lumbar subcutaneous fat in the midline is noted extending from L1 to L4. Moderate central spinal stenosis at L2-L3. Moderate to moderately severe central spinal stenosis at L3-L4 with small right-sided synovial cyst. Bilateral laminectomy defects are noted at L4-L5 and L5-S1. No acute disc h erniation is noted. No epidural or paraspinous fluid or mass is noted at the lumbar spine. IMPRESSION: 1.Epidural fluid collection with cystic loculations is noted extending from the level of T3 to the level of T11-T12 dorsally demonstrating enhancement consistent with an epidural abscess. There is ventr al displacement of the thoracic cord from T9 to T11 with mild cord compression at this segmental level. 2.There is edema and enhancement of the paraspinous muscles adjacent to the lamina and spinous process from T10 to L1. 3. Edema at the deep lumbar subcutaneous fat in the midline is noted extending from L1 to L4. 4.Bilateral neural foraminal stenosis at C3-C4, C4-C5 and C5-C6. 5. Postoperative changes are noted at L4-L5 and L5-S1. 6.Moderate central spinal stenosis at L2-L3. Moderate to moderately severe central spinal stenosis at L3-L4 with small right-sided synovial cyst. 7. No findings for discitis. 8.An area of edema and enhancement is noted at the right side of the dorsal deep thoracic subcutaneous fat at the superior thorax (series 53, image 1 ). Note: Critical findings called to,Dr. Bartholomew, on 06/25/2017 at 4:50 PM. SL: [id number] HEMATOLOGY Basophils # 0.1 K/CMM 0.0 - 0.2 06/24 [facility] CHEM PANEL Magnesium 2.7 mg/dL 1.8 - 2.4 06/23 Lvl /2016 [facility] HEMATOLOGY Basophils # 0.1 K/CMM 0.0 - 0.2 06/23 [facility] CHEM PANEL Procalcitoni 1.56 ng/mL 0.00 - 06/22 n Lvl 0.10 [facility] TOXICOLOGY Vanco Tr 16.3 ug/ml 06/22 [facility] TOXICOLOGY Vanco Tr TND 00:00 06/22 [facility] Ext Upper Ext Upper US ARM VEINS 06/21 - Venous Venous /2016 - [facility] Doppler Doppler Unilat US Unilat US History: Right arm swelling Read by: Janet Ma MD Dictated Date/time: 06/22/17 03:04 Electronically Signed by: Janet Ma MD 06/22/17 03:05 FINAL REPORT Comments: Real-time grayscale, color and pulse Doppler imaging of the right upper extremity veins was obtained. The right internal jugular vein, axillary vein, brachial, basilic and cephalic veins are normally compressible with expected venous waveforms. The subclavian vein is patent with color-flow and expected venous waveform. No evidence of deep vein thrombosis in the upper extremity veins. Impression: No deep vein thrombosis in the right upper extremity veins. Chest wo Chest wo CT STERNOCLAVICULAR JOINTS WITHOUT CONTRAST WITH SAGITTAL AND CORONAL REFORMATTED IMAGES 06/21 - contrast contrast CT - [facility] CT HISTORY: ; - Request CAT scan right and left sternoclavicular; Read by: Bello Brito MD Dictated Date/time: 06/22/17 08:35 Electronically Signed by: Bello Brito MD 06/22/17 08:50 FINAL REPORT COMPARISON: Right clavicle radiography dated 06/20/2017 and right shoulder radiography dated 06/19/2017 FINDINGS: The bilateral sternoclavicular joints are normal without significant degenerative arthritic joint space narrowing, sclerosis, or osteophytosis. No osseous erosions are seen to suggest inflammatory arthr itis. There is no right or left sternoclavicular dislocation or subluxation. No fracture is seen. No aggressive osseous lesion. There is mild retrosternal stranding and hemorrhage density infiltrating fluid, asymmetrically greater on the right at the level of the sternoclavicular joints, which is most compatible with mild retros ternal hematoma/soft tissue contusion. Mediastinitis is not excluded ( axial series 2 images 25 and 29). No discrete loculated fluid collection is seen in the visualized portion of the chest suggest drainable abscess, seroma, or hematoma. Visualized lung apices clear. IMPRESSION: 1. No fracture, dislocation, subluxation, erosion, or arthritic changes of the sternoclavicular joints. 2. Mild retrosternal stranding and hemorrhage-density infiltrating fluid in the anterior mediastinum at the level of the sternoclavicular joints which is asymmetric to the right and incompletely visuali zed. The appearance suggests mild retrosternal hemorrhage. Mediastinitis not excluded. Correlation with clinical history is required. Recommend CT thorax for complete mediastinal evaluation. Findings reported to the patient's nurse Massiel on the floor at time of dictation. The nurse was asked to inform the patient's physician. SL: [id number] CHEM PANEL Magnesium 2.6 mg/dL 1.8 - 2.4 06/21 Lvl /2016 [facility] HEMATOLOGY Plt Morph Clumped 06/21 [facility] (06/21/17 4:49 AM) HEMATOLOGY Sed Rate 97 mm/h 0 - 15 06/21 [facility] CARDIAC Total CK 159 unit/L 12 - 06/20 ENZYMES [facility] CARDIAC CK MB 0.8 ng/mL 0.5 - 3.6 06/20 [facility]ES [facility] CARDIAC Troponin-I null 0.00 - 06/20 ENZYMES 0.40 [facility] CARDIAC CK MB Index 0.5 0.0 - 2.5 06/20 [facility] IMMUNOLOGY C-REACTIVE 134.0 mg/L <=2.9 mg/L 06/20 PROTEIN [facility] CARDIAC CK MB 0.9 ng/mL 0.5 - 3.6 06/20 ENZYMES [facility] CARDIAC Troponin-I null 0.00 - 06/20 ENZYMES 0.40 [facility] CARDIAC Total CK 95 unit/L - 06/20 ENZYMES [facility] Clavicle Clavicle DX Patient Name: MARIA ESTHER CHAUDHARY 06/20 - DX /2016 - [facility] : 1960; Age: 56 years y/o Male MR: [id number] Read by: Narendra Burch MD Dictated Date/time: 06/20/17 17:08 Electronically Signed by: Narendra Burch MD 06/20/17 17:08 FINAL REPORT Study: Clavicle DX 06/20/2017 12:52 PM CDT Ordering Physician: Olayinka Johnson MD Clinical Indication: - pain and bulge by the sternalclavicular joint; Comparison right shoulder 06/19/2017. Right clavicle 2 views No clavicular fracture, subluxation or lesion is evident radiographically. SL: [id number] CARDIAC CK MB Index 0.7 0.0 - 2.5 06/20 [facility]ES [facility] CARDIAC CK MB 0.7 ng/mL 0.5 - 3.6 06/20 ENZYMES [facility] CARDIAC Troponin-I null 0.00 - 06/20 ENZYMES 0.40 2017 [facility] CARDIAC Total CK 105 unit/L - 06/20 ENZYMES [facility] CHEM PANEL Bili Total 1.3 mg/dL 0.2 - 1.3 06/20 [facility] CHEM PANEL Alk Phos 167 unit/L 39 - 136 06/20 [place] CHEM PANEL A/G Ratio 0.7 0.7 - 1.6 06/20 [place] CHEM PANEL ALT 55 unit/L 0 - 65 06/20 [place] CHEM PANEL AST 40 unit/L 0 - 37 06/20 [place] CHEM PANEL Globulin 4.9 g/dL 2.7 - 4.2 06/20 [place] CHEM PANEL Albumin Lvl 3.2 g/dL 3.5 - 5.0 06/20 [place] CHEM PANEL Total 8.1 g/dL 6.4 - 8.4 06/20 [facility] CHEM PANEL B/C Ratio 17 6 - 25 06/20 [facility] URINE AND UA Protein Negative Negative 06/20 [facility] [place] (06/19/17 11:49 PM) URINE AND UA pH 6.0 5.0 - 8.0 06/20 [place] URINE AND UA Turbidity Clear Clear 06/20 [facility] [place] (06/19/17 11:49 PM) URINE AND UA Spec Grav <=1.005 <=1.030 06/20 [facility]
*NA*< /2016 [place] br/>( 11:49 PM) URINE AND UA Color Yellow Yellow 06/20 [place] *NA* (06/19/17 11:49 PM) URINE AND UA Bacteria None Seen None Seen 06/20 [facility] [place] (06/19/17 11:49 PM) URINE AND UA RBC None Seen 0 - 2 06/20 [facility] [place] (06/19/17 11:49 PM) URINE AND UA Nitrite Negative Negative 06/20 [facility] [place] (06/19/17 11:49 PM) URINE AND UA WBC 0-2 /HPF None Seen 06/20 [facility] /HPF /2016 [place] URINE AND UA Sq Epi None Seen Few 06/20 [facility] [place] (06/19/17 11:49 PM) URINE AND UA Leuk Est Negative Negative 06/20 [place] (06/19/17 11:49 PM) URINE AND UA Blood Negative Negative 06/20 [facility] [place] (06/19/17 11:49 PM) URINE AND UA 0.2 EU/dL 0.1 - 1.0 06/20 [facility] Urobilinogen [place] URINE AND UA Ketones Negative Negative 06/20 [facility] [place] *NA* (06/19/17 11:49 PM) URINE AND UA Bili Negative Negative 06/20 [facility] [place] *NA* (06/19/17 11:49 PM) URINE AND UA Glucose Negative Negative 06/20 [facility] [place] (06/19/17 11:49 PM) CHEM PANEL B/C Ratio 17 6 - 25 06/20 [place] CHEM PANEL Globulin 5.3 g/dL 2.7 - 4.2 06/20 [place] CHEM PANEL A/G Ratio 0.6 0.7 - 1.6 06/20 [place] CHEM PANEL AGAP 9.5 meq/L 10.0 - 06/20 20.0 [place] CHEM PANEL ASPARTATE 12 unit/L 0 - 37 06/20 TRANSAMINASE [place] CHEM PANEL eGFR 86 06/20 Result Comment: The eGFR is calculated using the CKD-EPI formula. In most young, healthy individuals the eGFR will be >90 mL/ min/1.73m2. The eGFR declines with age. An eGFR of 60-89 may be normal in mL/min/1.7 some populations, particularly the elderly, for whom the CKD-EPI formula has not been extensively validated. Use of the eGFR is not recommended in the following populations: [address] Individuals with unstable creatinine concentrations, including patients and those with serious co-morbid conditions. Patients with extremes in muscle mass or diet. The data above are obtained from the National Kidney Disease Education Program (NKDEP) which additionally recommends that when the eGFR is used in patients with extremes of body mass index for purposes of drug dosing, the eGFR should be multiplied by the estimated BMI. CHEM PANEL Bili Total 0.4 mg/dL 0.2 - 1.3 06/20 [place] CHEM PANEL Total 8.5 g/dL 6.4 - 8.4 06/20 [place] CHEM PANEL Chloride Lvl 94 meq/L 95 - 109 06/20 [place] CHEM PANEL CO2 30 meq/L 24 - 32 06/20 [place] CHEM PANEL Calcium Lvl 8.8 mg/dL 8.5 - 10.5 06/20 [place] CHEM PANEL ALANINE 48 unit/L 0 - 65 06/20 AMINOTRANSFE [place] CHEM PANEL Albumin Lvl 3.2 g/dL 3.5 - 5.0 06/20 [place] CHEM PANEL Alk Phos 150 unit/L 39 - 136 06/20 [place] CHEM PANEL Potassium 4.5 meq/L 3.5 - 5.1 06/20 MH Lvl /2016 [place] CHEM PANEL BUN 19 mg/dL 7 - 22 06/20 [place] CHEM PANEL Glucose Lvl 260 mg/dL 70 - 99 06/20 [place] CHEM PANEL Creatinine 1.09 mg/dL 0.50 - 06/20 MH Lvl 1.40 [place] CHEM PANEL Sodium Lvl 129 meq/L 135 - 145 06/20 [place] HEMATOLOGY RBC Morph Normal 06/20 [place] (06/19/17 11:31 PM) HEMATOLOGY Plt Morph Normal 06/20 [place] (06/19/17 11:31 PM) HEMATOLOGY Segs 74.0 % 45.0 - 06/20 MH 75.0 [place] HEMATOLOGY Segs-Bands # 12.6 K/CMM 1.5 - 8.1 06/20 [place] HEMATOLOGY Monocytes 5.0 % 2.0 - 12.0 06/20 [place] HEMATOLOGY Lymphocytes 13.0 % 20.0 - 06/20 MH 40.0 [place] HEMATOLOGY Bands 7.0 % 0.0 - 11.0 06/20 [place] HEMATOLOGY Metamyelocyt 1.0 % 0.0 - 1.0 06/20 es [place] HEMATOLOGY Monocytes # 0.8 K/CMM 0.0 - 0.8 06/20 [place] HEMATOLOGY Lymphocytes 2.0 K/CMM 1.0 - 5.5 06/20 MH # [place] HEMATOLOGY Hct 37.7 % 42.0 - 06/20 MH 54.0 [place] HEMATOLOGY MCV 80.7 fL 80.0 - 06/20 MH 94.0 [place] HEMATOLOGY MCHC 32.5 g/dL 32.0 - 06/20 MH 36.0 /2016 [place] HEMATOLOGY MCH 26.2 pg 27.0 - 06/20 MH 31.0 [place] HEMATOLOGY RDW 14.3 % 11.5 - 06/20 MH 14.5 [place] HEMATOLOGY MPV 7.9 fL 7.4 - 10.4 06/20 [place] HEMATOLOGY Platelet 326 K/CMM 133 - 450 06/20 [place] HEMATOLOGY Hgb 12.2 g/dL 14.0 - 06/20 MH 18.0 [place] HEMATOLOGY RBC X 10x6 4.67 M/CMM 4.70 - 06/20 MH 6.10 [place] HEMATOLOGY WBC X 10x3 15.5 K/CMM 3.7 - 10.4 06/20 [place] MOLECULAR Streptococcu Not Detected Not 06/20 DIAGNOSTIC s spp. Detected /2016 [place] (06/19/17 11:31 PM) MOLECULAR Shirley Not Detected Not 06/20 DIAGNOSTIC Vancomycin Detected /2016 [place] Resistance (06/19/17 11:31 PM) MOLECULAR Listeria Not Detected Not 06/20 DIAGNOSTIC spp. Detected /2016 [place] (06/19/17 11:31 PM) MOLECULAR mecA Not Detected Not 06/20 DIAGNOSTIC Methicillin Detected [place] Resistance (06/19/17 11:31 PM) MOLECULAR vanB Not Detected Not 06/20 DIAGNOSTIC Vancomycin Detected [place] Resistance (06/19/17 11:31 PM) MOLECULAR E. faecium Not Detected Not 06/20 DIAGNOSTIC Detected [place] (06/19/17 11:31 PM) MOLECULAR Staphylococc Detected Not 06/20 DIAGNOSTIC us spp. Detected /2016 [place] *ABN* (06/19/17 11:31 PM) MOLECULAR S. Not Detected Not 06/20 DIAGNOSTIC lugdunensis Detected [place] (06/19/17 11:31 PM) MOLECULAR S. Not Detected Not 06/20 DIAGNOSTIC epidermidis Detected /2016 [place] (06/19/17 11:31 PM) MOLECULAR S. aureus Detected Not 06/20 DIAGNOSTIC Detected /2016 [place] *ABN* (06/19/17 11:31 PM) MOLECULAR S. Not Detected Not 06/20 DIAGNOSTIC pneumoniae Detected /2016 [place] (06/19/17 11:31 PM) MOLECULAR E. faecalis Not Detected Not 06/20 DIAGNOSTIC Detected [place] (06/19/17 11:31 PM) MOLECULAR S. Not Detected Not 06/20 DIAGNOSTIC agalactiae Detected [place] (06/19/17 11:31 PM) MOLECULAR S. anginosus Not Detected Not 06/20 DIAGNOSTIC grp Detected [place] (06/19/17 11:31 PM) MOLECULAR S. pyogenes Not Detected Not 06/20 DIAGNOSTIC Detected [place] (06/19/17 11:31 PM) Spine Spine lumbar CT LUMBAR SPINE 06/19 - [facility] lumbar wo wo contrast /2016 - [place] contrast CT (ER) CT (ER) Study: CT lumbar spine without contrast. Read by: Janet Ma MD Dictated Date/time: 06/19/17 22:18 Electronically Signed by: Janet Ma MD 06/19/17 22:31 FINAL REPORT History: Back pain. Comments: Lumbar spine CT was obtained utilizing multiple axial images. Sagittal and coronal reconstructions were reviewed. Total exam DLP is 1225 mgy-cm. Normal bone mineralization. Normal curvature of the lumbar spine. The vertebral body heights are maintained No acute fractures or subluxations. Posterior fixation metallic hardware at L4-S1. Broad-based posterior disc bulge at L4-S1 causing moderate to marked bilateral neural foramina narrowing. Impression: 1. No acute fractures or subluxations in the lumbar spine. 2. Postoperative and degenerative changes in the lower lumbar spine. Shoulder Shoulder Study: 3 views of right shoulder joint. 06/19 - [facility] series DX series DX - [place] History: Right arm pain Read by: aJnet Ma MD Dictated Date/time: 06/19/17 22:13 Electronically Signed by: Janet Ma MD 06/19/17 22:15 FINAL REPORT Comments: Normal bone mineralization. No acute fracture or dislocation. Visualized right lung and right ribs are within normal limits. IMPRESSION: No acute fracture or dislocation. Spine Spine lumbar Name: MARIA ESTHER CHAUDHARY 06/02 - The lumbar wo wo contrast /2014 - [place] contrast MRI : 1960 MRI Read by: Jack Sam MD Dictated Date/time: 06/02/15 13:54 Ordering Physician: Physician, Non Electronically Signed by: Jack Sam MD 06/02/15 14:43 FINAL REPORT Spine lumbar wo contrast MRI : Jun 02, 2015 12:49:00 PM. CLINICAL INDICATION: 724.2 REASON FOR EXAM: general anesthesia Comparison Examination: None. TECHNIQUE: Multiplanar T1, T2 and STIR MR images of the lumbar spine are performed on a 1.5 Dejah magnet. FINDINGS: Five nonrib-bearing lumbar type vertebrae are assumed. Postoperative changes of an anterior interbody fusion and posterior fusion are seen at the levels of L4-L5 and L5-S1. Bilateral intrapedicle screws are seen at the levels of L4, L5 and S1 attached to ro ds. Expected postoperative alignment is present. No evidence of spondylolisthesis or spondylolysis is seen. The visualized disc spaces are within normal limits. The signal within the disc spaces is norm al for age. The bone marrow signal shows normal signal for age.There are no fractures or compression deformities. The conus terminates at L1/2. There is no abnormal signal within the distal cord, cauda equina or within the CSF. The anterior and posterior paraspinal soft tissues are unremarkable. T12-L1: No extradural abnormality is seen. No narrowing of spinal canal or the neural foramina is seen. L1-2: No extradural abnormality is seen. No narrowing of spinal canal or the neural foramina is seen. Mild bilateral facet arthropathies are seen L2-3: No extradural abnormality is seen. No narrowing of spinal canal or the neural foramina is seen. L3-4: No extradural abnormality is seen. Intracanalicular lipomatosis is seen narrowing the AP dimension of the dural sac to 7.8 mm consistent with mild spinal stenosis. A lateral facet arthropathies are seen with hypertrophy. L4-5: Postoperative changes are seen with a capacious dural sac. No narrowing of spinal canal or the neural foramina is seen. Postoperative changes are seen with metal obscures the facet joints and the neural foramina. L5-S1: Osteophytic ridging is seen mildly indenting the dural sac. No narrowing of the spinal canal is seen. The facets are obscured by the screws and rods. Significant narrowing of the left neural fora men is suggested. Part of the neural foramen is secured by artifact. Mild narrowing of the right neural foramen is seen. IMPRESSION: 1. Postoperative changes are seen of an anterior and posterior interbody fusion at the levels of L4-L5 and L5-S1. 2. Narrowing of the neural foramina is seen as described above. 3. Mild spinal stenosis is seen at the level of L3-L4. SL: TW OPID 54 Vital Signs Vital Sign Value Date Comments Source Weight 274 10/02/2017 2.16.840.1.017897. 4.391.11.92903 Height 79 10/02/2017 2.16.840.1.930555. 4.391.11.58140 Temperature Oral (F) 97.6 F 10/02/2017 2.16.840.1.607008. 4.391.11.66418 Heart Rate 75 10/02/2017 2.16.840.1.637905. 4.391.11.11065 Diastolic (mm Hg) 76 10/02/2017 2.16.840.1.525488. 4.391.11.60259 Systolic (mm Hg) 121 10/02/2017 2.16.840.1.184429. 4.391.11.32009 Weight 123.381 09/18/2017 [facility] BMI Calculated 30.64 09/18/2017 [facility] Height 200.66 cm 09/18/2017 [facility] Weight 271 09/09/2017 2.16.840.1.799671. 4.391.11.72016 Height 79 09/09/2017 2.16.840.1.719032. 4.391.11.47615 Temperature Oral (F) 98.2 F 09/09/2017 2.16.840.1.162072. 4.391.11.47093 Heart Rate 80 09/09/2017 2.16.840.1.018825. 4.391.11.04301 Diastolic (mm Hg) 66 09/09/2017 2.16.840.1.239476. 4.391.11.49439 Systolic (mm Hg) 122 09/09/2017 2.16.840.1.775312. 4.391.11.12667 Weight 271 08/19/2017 2.16.840.1.850424. 4.391.11.97684 Height 79 08/19/2017 2.16.840.1.629594. 4.391.11.27511 Temperature Oral (F) 97.9 F 08/19/2017 2.16.840.1.002949. 4.391.11.86425 Heart Rate 76 08/19/2017 2.16.840.1.758669. 4.391.11.07307 Diastolic (mm Hg) 76 08/19/2017 2.16.840.1.264066. 4.391.11.60645 Systolic (mm Hg) 127 08/19/2017 2.16.840.1.363503. 4.391.11.59810 Weight 271 08/12/2017 2.16.840.1.109044. 4.391.11.72490 Height 79 08/12/2017 2.16.840.1.347488. 4.391.11.65966 Temperature Oral (F) 98.1 F 08/12/2017 2.16.840.1.005247. 4.391.11.60148 Heart Rate 81 08/12/2017 2.16.840.1.253848. 4.391.11.79905 Diastolic (mm Hg) 78 08/12/2017 2.16.840.1.072743. 4.391.11.88777 Systolic (mm Hg) 128 08/12/2017 2.16.840.1.342396. 4.391.11.96346 Weight 271 08/05/2017 2.16.840.1.643462. 4.391.11.80981 Height 79 08/05/2017 2.16.840.1.380482. 4.391.11.36810 Temperature Oral (F) 978 F 08/05/2017 2.16.840.1.851439. 4.391.11.01833 Heart Rate 96 08/05/2017 2.16.840.1.325943. 4.391.11.17061 Diastolic (mm Hg) 71 08/05/2017 2.16.840.1.850815. 4.391.11.62042 Systolic (mm Hg) 119 08/05/2017 2.16.840.1.334830. 4.391.11.58288 Weight 267 07/22/2017 2.16.840.1.143995. 4.391.11.42378 Height 79 07/22/2017 2.16.840.1.108130. 4.391.11.18837 Temperature Oral (F) 98.3 F 07/22/2017 2.16.840.1.080314. 4.391.11.50472 Heart Rate 104 07/22/2017 2.16.840.1.951748. 4.391.11.47004 Diastolic (mm Hg) 63 07/22/2017 2.16.840.1.900205. 4.391.11.45730 Systolic (mm Hg) 104 07/22/2017 2.16.840.1.563156. 4.391.11.30457 Respitory Rate 14 07/05/2017 [facility] Systolic (mm Hg) 131 07/04/2017 [facility] Diastolic (mm Hg) 75 07/04/2017 [facility] Respitory Rate 16 07/04/2017 [facility] Temperature Oral (F) 97.6 F 07/04/2017 [facility] Heart Rate 74 07/04/2017 [facility] Systolic (mm Hg) 136 07/04/2017 [facility] Diastolic (mm Hg) 85 07/04/2017 [facility] Temperature Oral (F) 97.9 F 07/04/2017 [facility] Heart Rate 82 07/04/2017 [facility] Systolic (mm Hg) 107 07/04/2017 [facility] Diastolic (mm Hg) 67 07/04/2017 [facility] Heart Rate 76 07/04/2017 [facility] Temperature Oral (F) 98.5 F 07/04/2017 [facility] Respitory Rate 14 07/04/2017 [facility] Weight 129 06/20/2017 [facility] BMI Calculated 32.04 06/20/2017 [facility] Height 200.66 cm 06/20/2017 [facility] Heart Rate 85 06/20/2017 [facility] Systolic (mm Hg) 111 06/20/2017 [facility] Diastolic (mm Hg) 82 06/20/2017 [facility] Respitory Rate 16 06/20/2017 [facility] Weight 129.545 06/19/2017 [facility] BMI Calculated 32.17 06/19/2017 [facility] Height 200.66 cm 06/19/2017 [facility] Temperature Oral (F) 98.2 F 06/19/2017 [facility] Respitory Rate 18 06/19/2017 [facility] Heart Rate 100 06/19/2017 [facility] Systolic (mm Hg) 125 06/19/2017 [facility] Diastolic (mm Hg) 74 06/19/2017 [facility] Encounters Location Location Encounter Encounter Reason Attending ADM DC Status Source Details Type Number For Provider Date Date Visit [facility] [id number] Poppy 06/19 06/20 [facility] 2 [place] /2016 [facility] Inpatient [id number] Daron Puma 06/20 07/05 [facility] Outpatient [id number] JOSE 07/11 Active [facility] 0 EST [facility] Outpatient [id number] Colby 07/14 07/15 [facility] 8 [place] /2016 [facility] Outpatient [id number] JOSE 08/08 Active [facility] 1 EST [facility] Outpatient [id number] Harita 09/05 09/06 [facility] 3 [place] /2016 [facility] Outpatient [id number] JOSE 09/18 [facility] 2 [place] Out[facility] [id number] Daron Puma 09/18 09/19 [facility] Outpatient [id number] JOSE 06/04 [facility] 3 EST [place] Procedures Procedure Code Date Perfomer Comments Source Arthroscopy<sup>1 [id number] [facility] [place] </sup> Laminectomy with [id number] [facility] spinal fusion Arthroscopy<sup>1 [id number] B[facility]ATERAL [facility] </sup> Laminectomy with [id number] [facility] spinal fusion Arthroscopy<sup>1 [id number] BILATERAL [facility] </sup> Laminectomy with [id number] [facility] spinal fusion
--- OUTSIDE RECORDS SUMMARY | 2018-09-25 00:33 | XMS REPORT ---
:1960 Author Organization [employer] Care Team Providers Name Role Phone Lorrie Amaral Provider Role Unavailable Allergies, Adverse Reactions, Alerts Substance Reaction Event Type N.K.D.A. Info Not Available Non Drug Allergy Problems Problem Type Condition Code Onset Dates Condition Status Assessment Type 2 diabetes mellitus without E11.9 Active complication, without long-term current use of insulin Assessment Staphylococcus aureus bacteremia A41.01 Active with sepsis Assessment Abscess in epidural space of G06.1 Active thoracic spine Assessment Local infection of the skin and L08.9 Active subcutaneous tissue, unspecified Assessment Abrasion of right front wall of S20.311D Active thorax, subsequent encounter Problem DM (diabetes mellitus) E11.9 Active Problem Chronic back pain M54.9 Active Problem HTN (hypertension) I10 Active Problem Epidural abscess G06.2 Active Problem Osteomyelitis M86.9 Active Problem Sepsis A41.9 Active Problem Bacteremia R78.81 Active Medications Medication Code Code Instructions Start End Status Dosage System Date Date Opana ER [facility] 18588822457 10 MG Oral Active (Schedule II Drug) TAKE 1 TABLET BY MOUTH EVERY 12 HOURS FOR PAIN Metformin HCl [facility] 74700971067 500 MG Oral Active TK 1 T PO BID Methocarbamol [facility] 50934654469 500 MG Oral Active TAKE 1 TO 2 TABLETS BY MOUTH EVERY 8 HOURS NEEDED FOR MUSCLE SPASM 5 DAYS Duexis [facility] 03633939640 800-26.6 MG Active TAKE 1 Oral TABLET BY MOUTH 3 TIMES A DAY FOR 30 DAYS Rifampin [facility] 15096681712 300 MG PO twice Active 1 capsule a day (bid) Cefazolin in D5W [facility] [address]-39 Active not defined Lisinopril [facility] 55309263139 5 MG Oral Active TK 1 T PO QD Warfarin Sodium [facility] 79373026584 7.5 MG Oral Active TK 1 T PO NIGHT BEFORE SURGERY Keflex [facility] [address]-71 500 MG Orally Sep 09Sep Active 1 tablet every 6 hrs 2016 Cyclobenzaprine [facility] 00156004938 10 MG Oral Active TK 1 T PO HCl Q 8 H PRN MUSCLE SPASMS Atorvastatin ND 51002164638 20 MG Oral Active TK 1 T PO Calcium QD Rifampin ND 97203673157 300 MG PO twice Aug 19, Active 1 capsule a day (bid) 2016 Doxycycline [facility] 02203228287 100 MG Orally Active 1 capsule Hyclate every 12 hrs Meloxicam [facility] 09838570675 7.5 MG Oral Active TK 1 T PO BID Xarelto [facility] 06698254622 10 MG Oral Active TK 1 T PO Q 24 HOURS FOR 13 DAYS Hydrocodone-Acetam [facility] 36590599014 10-325 MG Oral Active (Schedule inophen II Drug) TAKE 1 TABLET BY MOUTH EVERY 6 HOURS NEEDED FOR PAIN Gabapentin [facility] 05374858624 800 MG Oral Active TAKE 1 TABLET BY MOUTH 3 TIMES A DAY FOR 30 DAYS Oxymorphone HCl [facility] 35819236673 5 MG Oral Active (Schedule II Drug) TAKE 1 TABLET BY MOUTH EVERY 6 HOURS NEEDED FOR PAIN Vital Signs Date/Time: Sep 09, 2017 BMI 30.53 Index Weight 271 lbs Height 79 in Temperature 98.2 F Cardiac Monitoring Heart Rate 80 /min Blood Pressure Diastolic 66 mm Hg Blood Pressure Systolic 122 mm Hg Results No Known Results Summary Purpose [employer]Works Submission
--- OUTSIDE RECORDS SUMMARY | 2018-09-25 00:33 | XMS REPORT ---
[...] of S20.311D Active thorax, subsequent encounter Problem Osteomyelitis M86.9 Active Problem Sepsis A41.9 Active Problem Bacteremia R78.81 Active Problem HTN (hypertension) I10 Active Problem Epidural abscess G06.2 Active Problem Chronic back pain M54.9 Active Problem DM (diabetes mellitus) E11.9 Active Medications Medication Code Code Instructions Start End Status Dosage System Date Date Metformin HCl [facility] 60402661072 500 MG Oral Active TK 1 T PO BID Methocarbamol [facility] 59077912490 500 MG Oral Active TAKE 1 TO 2 TABLETS BY MOUTH EVERY 8 HOURS NEEDED FOR MUSCLE SPASM 5 DAYS Atorvastatin [facility] 46282443972 20 MG Oral Active TK 1 T PO Calcium QD Duexis [facility] 28529094243 800-26.6 MG Active TAKE 1 Oral TABLET BY MOUTH 3 TIMES A DAY FOR 30 DAYS Lisinopril [facility] 95184999377 5 MG Oral Active TK 1 T PO QD Xarelto ND 95613423504 10 MG Oral Active TK 1 T PO Q 24 HOURS FOR 13 DAYS Warfarin Sodium [facility] 71505853056 7.5 MG Oral Active TK 1 T PO NIGHT BEFORE SURGERY Cyclobenzaprine [facility] 56801471698 10 MG Oral Active TK 1 T PO HCl Q 8 H PRN MUSCLE SPASMS Opana ER [facility] 01303930427 10 MG Oral Active (Schedule II Drug) TAKE 1 TABLET BY MOUTH EVERY 12 HOURS FOR PAIN Oxymorphone HCl [facility] 65783581249 5 MG Oral Active (Schedule II Drug) TAKE 1 TABLET BY MOUTH EVERY 6 HOURS NEEDED FOR PAIN Cefazolin in D5W [facility] [address]-64 Active not defined Hydrocodone-Acetam [facility] 79080594937 10-325 MG Oral Active (Schedule inophen II Drug) TAKE 1 TABLET BY MOUTH EVERY 6 HOURS NEEDED FOR PAIN Gabapentin [facility] 45122446417 800 MG Oral Active TAKE 1 TABLET BY MOUTH 3 TIMES A DAY FOR 30 DAYS Meloxicam [facility] 86488247878 7.5 MG Oral Active TK 1 T PO BID Vital Signs Date/Time: Aug 05, 2017 BMI 30.53 Index Weight 271 lbs Height 79 in Temperature 978 F Cardiac Monitoring Heart Rate 96 /min Blood Pressure Diastolic 71 mm Hg Blood Pressure Systolic 119 mm Hg Results No Known Results Summary Purpose eClinicalWorks Submission
--- OUTSIDE RECORDS SUMMARY | 2018-09-25 00:33 | XMS REPORT ---
[...] Start End Status Dosage System Date Date Gabapentin [facility] 13169542158 800 MG Oral Active TAKE 1 TABLET BY MOUTH 3 TIMES A DAY FOR 30 DAYS Methocarbamol [facility] 21399072868 500 MG Oral Active TAKE 1 TO 2 TABLETS BY MOUTH EVERY 8 HOURS NEEDED FOR MUSCLE SPASM 5 DAYS Opana ER [facility] 08250554179 10 MG Oral Active (Schedule II Drug) TAKE 1 TABLET BY MOUTH EVERY 12 HOURS FOR PAIN Duexis [facility] 69835381897 800-26.6 MG Active TAKE 1 Oral TABLET BY MOUTH 3 TIMES A DAY FOR 30 DAYS Hydrocodone-Acetam [facility] 60183229002 10-325 MG Oral Active (Schedule inophen II Drug) TAKE 1 TABLET BY MOUTH EVERY 6 HOURS NEEDED FOR PAIN Xarelto [facility] 84318895852 10 MG Oral Active TK 1 T PO Q 24 HOURS FOR 13 DAYS Cefazolin in D5W [facility] [address]-28 Active not defined Meloxicam [facility] 66268734659 7.5 MG Oral Active TK 1 T PO BID Oxymorphone HCl [facility] 90453185654 5 MG Oral Active (Schedule II Drug) TAKE 1 TABLET BY MOUTH EVERY 6 HOURS NEEDED FOR PAIN Cyclobenzaprine [facility] 29716979528 10 MG Oral Active TK 1 T PO HCl Q 8 H PRN MUSCLE SPASMS Warfarin Sodium [facility] 11499291826 7.5 MG Oral Active TK 1 T PO NIGHT BEFORE SURGERY Lisinopril [facility] 91355871524 5 MG Oral Active TK 1 T PO QD Metformin HCl [facility] 40344689783 500 MG Oral Active TK 1 T PO BID Atorvastatin [facility] 90533120244 20 MG Oral Active TK 1 T PO Calcium QD Vital Signs Date/Time: Aug 12, 2017 BMI 30.53 Index Weight 271 lbs Height 79 in Temperature 98.1 F Cardiac Monitoring Heart Rate 81 /min Blood Pressure Diastolic 78 mm Hg Blood Pressure Systolic 128 mm Hg Results No Known Results Summary Purpose eClinicalWorks Submission
--- OUTSIDE RECORDS SUMMARY | 2018-09-25 00:33 | XMS REPORT ---
:1960 Author Organization eClinicalWorks Care Team Providers Name Role Phone Charles Garza Provider Role Unavailable Allergies, Adverse Reactions, Alerts Substance Reaction Event Type N.K.D.A. Info Not Available Non Drug Allergy Problems Problem Type Condition Code Onset Dates Condition Status Assessment Type 2 diabetes mellitus without E11.9 Active complication, without long-term current use of insulin Assessment Staphylococcus aureus bacteremia A41.01 Active with sepsis Assessment Abscess in epidural space of G06.1 Active thoracic spine Problem DM (diabetes mellitus) E11.9 Active Problem Chronic back pain M54.9 Active Problem HTN (hypertension) I10 Active Problem Epidural abscess G06.2 Active Problem Osteomyelitis M86.9 Active Problem Sepsis A41.9 Active Problem Bacteremia R78.81 Active Medications Medication Code Code Instructions Start End Status Dosage System Date Date Cefazolin in D5W [facility] [address]-12 Active not defined Rifampin [facility] 03396308080 300 MG PO twice Active 1 capsule a day (bid) Oxymorphone HCl [facility] 96154514120 5 MG Oral Active (Schedule II Drug) TAKE 1 TABLET BY MOUTH EVERY 6 HOURS NEEDED FOR PAIN Gabapentin [facility] 45338625361 800 MG Oral Active TAKE 1 TABLET BY MOUTH 3 TIMES A DAY FOR 30 DAYS Atorvastatin [facility] 13026451796 20 MG Oral Active TK 1 T PO Calcium QD Warfarin Sodium [facility] 07088168178 7.5 MG Oral Active TK 1 T PO NIGHT BEFORE SURGERY Duexis [facility] 26427376516 800-26.6 MG Active TAKE 1 Oral TABLET BY MOUTH 3 TIMES A DAY FOR 30 DAYS Meloxicam [facility] 45575123341 7.5 MG Oral Active TK 1 T PO BID Cyclobenzaprine [facility] 74811081010 10 MG Oral Active TK 1 T PO HCl Q 8 H PRN MUSCLE SPASMS Opana ER [facility] 31118555155 10 MG Oral Active (Schedule II Drug) TAKE 1 TABLET BY MOUTH EVERY 12 HOURS FOR PAIN Doxycycline [facility] 47968778522 100 MG Orally Active 1 capsule Hyclate every 12 hrs Xarelto [facility] 07196455473 10 MG Oral Active TK 1 T PO Q 24 HOURS FOR 13 DAYS Hydrocodone-Acetam [facility] 76630692527 10-325 MG Oral Active (Schedule inophen II Drug) TAKE 1 TABLET BY MOUTH EVERY 6 HOURS NEEDED FOR PAIN Methocarbamol [facility] 05857680864 500 MG Oral Active TAKE 1 TO 2 TABLETS BY MOUTH EVERY 8 HOURS NEEDED FOR MUSCLE SPASM 5 DAYS Lisinopril [facility] 75334414478 5 MG Oral Active TK 1 T PO QD Keflex [facility] [address]-51 500 MG Orally Active 1 tablet every 6 hrs Metformin HCl [facility] 36774117716 500 MG Oral Active TK 1 T PO BID Vital Signs Date/Time: Oct 02, 2017 BMI 30.86 Index Weight 274 lbs Height 79 in Temperature 97.6 F Cardiac Monitoring Heart Rate 75 /min Blood Pressure Diastolic 76 mm Hg Blood Pressure Systolic 121 mm Hg Results No Known Results Summary Purpose eClinicalWorks Submission
--- OUTSIDE RECORDS SUMMARY | 2018-09-25 00:33 | XMS REPORT ---
[...] Dosage System Date Date Cefazolin in D5W [facility] [address]-32 Active not defined Duexis [facility] 89212519452 800-26.6 MG Active TAKE 1 Oral TABLET BY MOUTH 3 TIMES A DAY FOR 30 DAYS Opana ER [facility] 97808922140 10 MG Oral Active (Schedule II Drug) TAKE 1 TABLET BY MOUTH EVERY 12 HOURS FOR PAIN Gabapentin [facility] 65991706533 800 MG Oral Active TAKE 1 TABLET BY MOUTH 3 TIMES A DAY FOR 30 DAYS Cyclobenzaprine [facility] 13699281719 10 MG Oral Active TK 1 T PO HCl Q 8 H PRN MUSCLE SPASMS Methocarbamol [facility] 18959994403 500 MG Oral Active TAKE 1 TO 2 TABLETS BY MOUTH EVERY 8 HOURS NEEDED FOR MUSCLE SPASM 5 DAYS Oxymorphone HCl [facility] 59137794946 5 MG Oral Active (Schedule II Drug) TAKE 1 TABLET BY MOUTH EVERY 6 HOURS NEEDED FOR PAIN Hydrocodone-Acetam [facility] 12265540858 10-325 MG Oral Active (Schedule inophen II Drug) TAKE 1 TABLET BY MOUTH EVERY 6 HOURS NEEDED FOR PAIN Rifampin [facility] [place] [address]-00 300 MG PO twice Aug 19, Active 1 capsule a day (bid) 2016 Doxycycline [facility] [place] [address]-08 100 MG Orally Aug 19Sep Active 1 capsule Hyclate every 12 hrs 2016 Meloxicam [facility] 33341397449 7.5 MG Oral Active TK 1 T PO BID Metformin HCl [facility] 34479123874 500 MG Oral Active TK 1 T PO BID Atorvastatin [facility] 03318815264 20 MG Oral Active TK 1 T PO Calcium QD Xarelto [facility] 51309987964 10 MG Oral Active TK 1 T PO Q 24 HOURS FOR 13 DAYS Warfarin Sodium [facility] 88079713521 7.5 MG Oral Active TK 1 T PO NIGHT BEFORE SURGERY Lisinopril [facility] 87481934466 5 MG Oral Active TK 1 T PO QD Vital Signs Date/Time: Aug 19, 2017 BMI 30.53 Index Weight 271 lbs Height 79 in Temperature 97.9 F Cardiac Monitoring Heart Rate 76 /min Blood Pressure Diastolic 76 mm Hg Blood Pressure Systolic 127 mm Hg Results No Known Results Summary Purpose eClinicalWorks Submission
--- OUTSIDE RECORDS SUMMARY | 2018-09-25 00:33 | XMS REPORT ---
[...] Status Dosage System Date Date Opana ER [facility] 07672893346 10 MG Oral Active (Schedule II Drug) TAKE 1 TABLET BY MOUTH EVERY 12 HOURS FOR PAIN Cefazolin in D5W [facility] [address]-78 Active not defined Meloxicam [facility] 44332840039 7.5 MG Oral Active TK 1 T PO BID Lisinopril [facility] 00020763853 5 MG Oral Active TK 1 T PO QD Cyclobenzaprine [facility] 98360253391 10 MG Oral Active TK 1 T PO HCl Q 8 H PRN MUSCLE SPASMS Gabapentin [facility] 41425766499 800 MG Oral Active TAKE 1 TABLET BY MOUTH 3 TIMES A DAY FOR 30 DAYS Hydrocodone-Acetam [facility] 86279204819 10-325 MG Oral Active (Schedule inophen II Drug) TAKE 1 TABLET BY MOUTH EVERY 6 HOURS NEEDED FOR PAIN Xarelto [facility] 47720010779 10 MG Oral Active TK 1 T PO Q 24 HOURS FOR [address] [facility] 08198192630 500 MG Oral Active TAKE 1 TO 2 TABLETS BY MOUTH EVERY 8 HOURS NEEDED FOR MUSCLE SPASM [address] [facility] 38327981408 800-26.6 MG Active TAKE 1 Oral TABLET BY MOUTH 3 TIMES A DAY FOR [address] [facility] 97614789141 500 MG Oral Active TK 1 T PO BID Atorvastatin [facility] 01868568124 20 MG Oral Active TK 1 T PO Calcium QD Oxymorphone HCl [facility] 95693389694 5 MG Oral Active (Schedule II Drug) TAKE 1 TABLET BY MOUTH EVERY 6 HOURS NEEDED FOR PAIN Warfarin Sodium [facility] 15942276452 7.5 MG Oral Active TK 1 T PO NIGHT BEFORE SURGERY Vital Signs Date/Time: Jul 22, 2017 BMI 30.08 Index Weight 267 lbs Height 79 in Temperature 98.3 F Cardiac Monitoring Heart Rate 104 /min Blood Pressure Diastolic 63 mm Hg Blood Pressure Systolic 104 mm Hg Results No Known Results Summary Purpose eClinicalWorks Submission
[2018-09-25] MEDS ORDERED: SILVER NITRATE 1 APPL TOP ONE (01:43)
[2018-09-25] MEDS ORDERED: LIDOCAINE 1% W/EPI 1:100,000 MDV 50 ML VIAL ONE (02:01)
--- NOTE | 2018-09-25 03:05 | EDPHYS ---
Physician Documentation [facility] Name: Rica Ribeiro Jr Age: 57 yrs Sex: Male : 1960 Arrival Date: 09/25/2018 Time: 00:28 Bed 13 Private MD: Destinee Funes F ED Physician Holland Alexander HPI: 09/25 02:58 This 57 yrs old Black Male presents to ER via Wheelchair with complaints of Post gs Surgical Bleeding. 02:58 The affected area is on the left knee. The patient has been recently seen by a gs physician: an orthopedic surgeon, yesterday. had scope bleeding from lateral incision. Historical: - Allergies: 00:55 NKA; jb4 - Home Meds: 00:55 hydrocodone-acetaminophen 10-325 mg Oral tab 1 tab every 6 hours [Active]; gabapentin jb4 800 mg Oral tab 1 tab 3 times per day [Active]; baclofen 20 mg Oral tab [Active]; aspirin 81 mg Oral chew [Active]; cephalexin 500 mg Oral cap [Active]; - PMHx: 00:55 Diabetes - NIDDM; neuropathy; Hypertension; jb4 - PSHx: 00:55 Knee surgery; back surgery; jb4 - Immunization history:: Adult Immunizations up to date. - Social history:: Smoking status: Patient/guardian denies using tobacco. - Ebola Screening: : No symptoms or risks identified at this time. ROS: 02:58 All other systems are negative. gs Exam: 02:58 Constitutional: The patient appears alert, awake. gs 02:58 Musculoskeletal/extremity: ROM: limited active range of motion due to pain, limited passive range of motion due to pain, Circulation is intact in all extremities. Sensation intact. 02:58 Skin: injury, lateral incision bleeding saturated dressing partially. Vital Signs: 00:55 BP 129 / 78; Pulse 68; Resp 18; Temp 98.3; Pulse Ox 97% on R/A; Weight 129.27 kg (R); jb4 Height 6 ft. 7 in. (200.66 cm) (R); Pain 4/10; 02:30 BP 100 / 52; Pulse 73; Resp 16; Pulse Ox 97% on R/A; jb4 00:55 Body Mass Index 32.11 (129.27 kg, 200.66 cm) jb4 Laceration: 02:58 Wound Repair of subcutaneous laceration to place 3 simple sutures in sking under steril gs conditions did not stop bleeding placed bulky pressure dressing.. Distal neuro/vascular/tendon intact. MDM: 01:14 Patient medically screened. gs Administered Medications: 01:07 Drug: Silver Nitrate Applicators 1 application {Note: applied by ER physician to left jb4 knee surgical site..} Route: Topical; Site: wound; 02:16 Drug: Lidocaine-Epinephrine -1%: (1:100,000) 1 application {Note: administered by ER jb4 physician.} Volume: 20 ml; Route: Infiltration; Disposition: 09/25/18 03:04 Discharged to Home. Impression: Postprocedural hemorrhage and hematoma of a musculoskeletal structure following a procedure. - Condition is Stable. - Medication Reconciliation Form, Thank You Letter, Antibiotic Education, Prescription Opioid Use form. - Follow up: Private Physician; When: 1 - 2 days; Reason: Re-evaluation by your physician. Signatures: Micah Mccall RN RN [facility] Holland Alexander MD MD Corrections: (The following items were deleted from the chart) 03:20 03:04 09/25/2018 03:04 Discharged to Home. Impression: Postprocedural hemorrhage and jb4 hematoma of a musculoskeletal structure following a procedure. Condition is Stable. Forms are Medication Reconciliation Form, Thank You Letter, Antibiotic Education, Prescription Opioid Use. Follow up: Private Physician; When: 1 - 2 days; Reason: Re-evaluation by your physician. gs
--- NOTE | 2018-09-25 03:05 | ER ---
Nurse's Notes [facility] Name: Rica Ribeiro Jr Age: 57 yrs Sex: Male : 1960 Arrival Date: 09/25/2018 Time: 00:28 Bed 13 Private MD: Destinee Funes F Diagnosis: Postprocedural hemorrhage and hematoma of a musculoskeletal structure following a procedure Presentation: 09/25 00:48 Presenting complaint: Patient states: I was at home and started having bleeding from jb4 the surgical site. When I called the center I had surgery at i was instructed to come to the ER. Transition of care: patient was not received from another setting of care. Onset of symptoms was September 25, 2018. Risk Assessment: Do you want to hurt yourself or someone else? Patient reports no desire to harm self or others. Initial Sepsis Screen: Does the patient meet any 2 criteria? No. Patient's initial sepsis screen is negative. Does the patient have a suspected source of infection? No. Patient's initial sepsis screen is negative. Care prior to arrival: None. 00:48 Method Of Arrival: Wheelchair jb4 00:48 Acuity: ALTAF 3 jb4 Triage Assessment: 00:55 General: Appears in no apparent distress. uncomfortable, Behavior is calm, cooperative, jb4 appropriate for age, Bleeding noted to the left knee. bleeding saturated bandage and is bleeding through grayson wrap.. Pain: Complains of pain in generalized. Pain does not radiate. Pain currently is 4 out of 10 on a pain scale. EENT: No signs and/or symptoms were reported regarding the EENT system. Neuro: Level of Consciousness is awake, alert, obeys commands, Oriented to person, place, time, situation. Cardiovascular: Patient's skin is warm and dry. Respiratory: Airway is patent Respiratory effort is even, unlabored, Respiratory pattern is regular, symmetrical. GI: No signs and/or symptoms were reported involving the gastrointestinal system. : No signs and/or symptoms were reported regarding the genitourinary system. Derm: Skin is intact, Skin is dry, Skin is normal, Skin temperature is warm. Musculoskeletal: Circulation, motion, and sensation intact. Historical: - Allergies: 00:55 NKA; jb4 - Home Meds: 00:55 hydrocodone-acetaminophen 10-325 mg Oral tab 1 tab every 6 hours [Active]; gabapentin jb4 800 mg Oral tab 1 tab 3 times per day [Active]; baclofen 20 mg Oral tab [Active]; aspirin 81 mg Oral chew [Active]; cephalexin 500 mg Oral cap [Active]; - PMHx: 00:55 Diabetes - NIDDM; neuropathy; Hypertension; jb4 - PSHx: 00:55 Knee surgery; back surgery; jb4 - Immunization history:: Adult Immunizations up to date. - Social history:: Smoking status: Patient/guardian denies using tobacco. - Ebola Screening: : No symptoms or risks identified at this time. Screenin:37 Abuse screen: Denies threats or abuse. Nutritional screening: No deficits noted. jb4 Tuberculosis screening: No symptoms or risk factors identified. Fall Risk Ambulatory Aid- Crutches/Cane/Walker (15 pts). Total Kitchen Fall Scale indicates No Risk (0-24 pts). Assessment: 01:02 General: see triage assessment.. jb4 02:43 Reassessment: Patient appears in no apparent distress at this time. Patient and/or jb4 family updated on plan of care and expected duration. Pain level reassessed. Patient is alert, oriented x 3, equal unlabored respirations, skin warm/dry/pink. Vital Signs: 00:55 BP 129 / 78; Pulse 68; Resp 18; Temp 98.3; Pulse Ox 97% on R/A; Weight 129.27 kg (R); jb4 Height 6 ft. 7 in. (200.66 cm) (R); Pain 4/10; 02:30 BP 100 / 52; Pulse 73; Resp 16; Pulse Ox 97% on R/A; jb4 00:55 Body Mass Index 32.11 (129.27 kg, 200.66 cm) jb4 ED Course: 00:28 Patient arrived in ED. es 00:29 Destinee Funes MD is Private Physician. es 00:32 Micah Mccall RN is Primary Nurse. jb4 00:38 Holland Alexander MD is Attending Physician. gs 00:52 Triage completed. jb4 00:55 Arm band placed on left wrist. jb4 01:00 Patient has correct armband on for positive identification. Call light in reach. Side jb4 rails up X 1. Pulse ox on. NIBP on. 02:15 Assist provider with laceration repair on left knee that was 2.5 cm. or less using jb4 sutures. Set up tray. Performed by Holland Alexander MD Dressed with 4X4s, Patient tolerated well. 02:15 Patient did not have IV access during this emergency room visit. jb4 02:15 Grayson wrap to left knee. jb4 Administered Medications: 01:07 Drug: Silver Nitrate Applicators 1 application {Note: applied by ER physician to left jb4 knee surgical site..} Route: Topical; Site: wound; 02:16 Drug: Lidocaine-Epinephrine -1%: (1:100,000) 1 application {Note: administered by ER jb4 physician.} Volume: 20 ml; Route: Infiltration; Outcome: 03:04 Discharge ordered by . 03:19 Discharged to home ambulatory, with crutches, with family. jb4 03:19 Condition: stable 03:19 Discharge instructions given to patient, family, Instructed on discharge instructions, follow up and referral plans. Demonstrated understanding of instructions, follow-up care. 03:20 Patient left the ED. jb4 Signatures: Shana Nolasco James, RN RN jb4 Holland Alexander MD MD Corrections: (The following items were deleted from the chart) 01:37 00:55 General: Appears in no apparent distress. uncomfortable, Behavior is calm, jb4 cooperative, appropriate for age, jb4
[2018-09-25 03:26] VITALS: TEMP 98.3; O2SAT 97
[2018-09-25 03:28] VITALS: BP 100/52
== END 2018-09-25 03:20 | disposition home or self-care (01) ==
LOC: ER 00:26
PROC: 0JQP0ZZ Repair Left Lower Leg Subcutaneous Tissue and Fascia, Open Approach (ICD-10-PCS; principal; 2018-09-25)
DX: M96.830 Postprocedural hemorrhage of a musculoskeletal structure following a musculoskeletal system procedure (principal); M96.840 Postprocedural hematoma of a musculoskeletal structure following a musculoskeletal system procedure; E11.40 Type 2 diabetes mellitus with diabetic neuropathy, unspecified; I10 Essential (primary) hypertension; Z79.84 Long term (current) use of oral hypoglycemic drugs; Z79.82 Long term (current) use of aspirin; Z79.899 Other long term (current) drug therapy
CPT/HCPCS: 99284

== ENCOUNTER 2018-10-15 04:34 | Observation (INO) | payer OTHER ==
--- OUTSIDE RECORDS SUMMARY | 2018-10-15 04:36 | XMS REPORT | Clinical Summary ---
:1960 Author Organization [facility] Address [address] [place] [id number] Care Team Providers Name Role Phone Brian Juan MD Primary Care Provider Allergies Not on File Medications Not on file Active Problems Not on file Encounters Date Type Specialty Care Team Description 08/27/2018 Hospital Encounter Radiology Yanelis Sahni, Infection of total left knee replacement, initial encounter ([facility]); DO Pain due to hip joint prosthesis, initial encounter ([facility]); Presence of left artificial knee joint 08/17/2018 Transcribe Orders Access Yanelis Sahni, Infection of total left knee replacement, initial encounter ([facility]) (Primary Dx); DO Pain due to hip joint prosthesis, initial encounter ([facility]); Presence of left artificial knee joint after 10/14/2017 Social History Tobacco Use Types Packs/Day Years [...] Last Done Comments COLON CANCER SCREENING 2008 SHINGLES VACCINES (1 of 2) 2008 INFLUENZA VACCINE 05/20/2018 Procedures Procedure Name Priority Date/Time Associated Diagnosis Comments GLUCOSE LEVEL, MISC Routine 10/08/2018 5:00 Infection associated Results for this FLUID PM TRANSFUSION NURSE with internal left procedure are in knee prosthesis, the results initial encounter section. (HCC) Presence of left artificial knee joint Pain due to hip joint prosthesis, initial encounter ([facility]) Status post hip replacement, unspecified laterality CRYSTAL ANALYSIS Routine 10/08/2018 5:00 Infection associated Results for this PM TRANSFUSION NURSE with internal left procedure are in knee prosthesis, the results initial encounter section. (HCC) Presence of left artificial knee joint Pain due to hip joint prosthesis, initial encounter (HCC) Status post hip replacement, unspecified laterality CELL COUNT AND Routine 10/08/2018 5:00 Infection associated DIFFERENTIAL, BODY PM TRANSFUSION NURSE with internal left FLUID knee prosthesis, initial encounter (HCC) Presence of left artificial knee joint Pain due to hip joint prosthesis, initial encounter (HCC) Status post hip replacement, unspecified laterality ANAEROBIC CULTURE Routine 10/08/2018 5:00 Results for this PM TRANSFUSION NURSE procedure are in the results section. GRAM STAIN Routine 10/08/2018 5:00 Results for this PM TRANSFUSION NURSE procedure are in the results section. JOINT FLUID CULTURE Routine 10/08/2018 5:00 Infection associated Results for this PM TRANSFUSION NURSE with internal left procedure are in knee prosthesis, the results initial encounter section. (HCC) Presence of left artificial knee joint Pain due to hip joint prosthesis, initial encounter (HCC) Status post hip replacement, unspecified laterality US NEEDLE ASPIRATION Routine 08/27/2018 3:21 Infection of total Results for this PM TRANSFUSION NURSE left knee procedure are in replacement, initial the results encounter (HCC) section. Pain due to hip joint prosthesis, initial encounter (HCC) Presence of left artificial knee joint GLUCOSE LEVEL, MISC Routine 08/27/2018 2:40 Results for this FLUID PM TRANSFUSION NURSE procedure are in the results section. CRYSTAL ANALYSIS Routine 08/27/2018 2:40 Results for this PM TRANSFUSION NURSE procedure are in the results section. CELL COUNT AND Routine 08/27/2018 2:40 Results for this DIFFERENTIAL, BODY PM TRANSFUSION NURSE procedure are in FLUID the results section. TISSUE CULTURE Timed 08/27/2018 2:40 Results for this PM TRANSFUSION NURSE procedure are in the results section. GRAM STAIN Timed 08/27/2018 2:40 Results for this PM TRANSFUSION NURSE procedure are in the results section. ANAEROBIC CULTURE Timed 08/27/2018 2:40 Infection of total Results for this PM TRANSFUSION NURSE left knee procedure are in replacement, initial the results encounter (HCC) section. Pain due to hip joint prosthesis, initial encounter (HCC) Presence of left artificial knee joint after 10/14/2017 Results Joint fluid culture (10/08/2018 5:00 PM TRANSFUSION NURSE) Joint fluid culture No growth after 4 days. [facility] isolate Comment: HOSPITAL Specimen Information Specimen Source: Joint Fluid Specimen Site: Knee, left Specimen Joint fluid - Knee, left Performing Organization Address City/State/Zipcode Phone Number [facility] DEPARTMENT OF PATHOLOGY AND [address] [place] [id number] [address] Crystal analysis (10/08/2018 5:00 PM TRANSFUSION NURSE)Only the most recent of2 resultswithin the time period is included. Crystal analysis specimen type Synovial [facility] [place] Monosodium urate None seen None seen [facility] [place] CPPD crystals None seen None seen [facility] [place] Specimen Fluid Performing Organization Address [facility] [place] Phone Number [facility] DEPARTMENT OF PATHOLOGY AND [address] [place] [id number] Gram stain (10/08/2018 5:00 PM TRANSFUSION NURSE)Only the most recent of2 resultswithin the time period is included. Gram stain isolate No WBC's or organisms seen. [facility] [place] [place] Comment: Specimen Information Specimen Source: Joint Fluid Specimen Site: Knee, left Specimen Joint fluid - Knee, left Performing Organization Address [facility] [place] Phone Number [facility] DEPARTMENT OF PATHOLOGY AND [address] [place] [phone] Anaerobic culture (10/08/2018 5:00 PM TRANSFUSION NURSE)Only the most recent of2 resultswithin the time period is included. Anaerobic culture isolate No anaerobic organisms isolated. [facility] Comment: HOSPITAL Specimen Information Specimen Source: Joint Fluid Specimen Site: Knee, left Specimen Joint fluid - Knee, left Performing Organization Address [facility] [place] Phone Number [facility] DEPARTMENT OF PATHOLOGY AND [address] [place] [id number] Glucose level, misc fluid (10/08/2018 5:00 PM TRANSFUSION NURSE)Only the most recent of2 resultswithin the time period is included. Fluid type Synovial [facility] [place] Glucose, fluid 103 mg/dL [facility] [place] [place] Comment: Analysis performed on Kelli 8000 analyzer. This is not an approved methodology for this specimen type;accuracy and clinical significance uncertain. Specimen Fluid Performing Organization Address [facility] Phone Number [facility] DEPARTMENT OF PATHOLOGY AND [address] [place] [address] [place] [address] [place] Needle Aspiration (08/27/2018 3:21 PM TRANSFUSION NURSE) Narrative Performed At EXAMINATION:US NEEDLE ASPIRATION [facility] CLINICAL HISTORY:T84.54XA Infection and inflammatory reaction due to internal left knee prosthesisinitial encounter, Z96.652 Presence of left artificial knee joint, T84.08JFE99.84XA Z96.652 COMPARISON:None. FINDINGS: Following informed consent using [...] blood was sent for culture and sensitivity [id number] Procedure Note Hm Interface, Radiology Results Incoming - 08/27/2018 3:58 PM TRANSFUSION NURSE EXAMINATION: US NEEDLE ASPIRATION CLINICAL HISTORY: T84.54XA [...] blood was sent for culture and sensitivity [id number] Performing Organization Address City/State/Zipcode Phone Number [facility] [address] [place] [address] Tissue culture (08/27/2018 2:40 PM TRANSFUSION NURSE) Tissue culture isolate No growth after [address] [facility] [place] Comment: Specimen Information Specimen Source: Tissue Specimen Site: Knee Specimen Tissue - Knee Performing Organization Address City/State/Zipcode Phone Number [facility] DEPARTMENT OF PATHOLOGY AND [address] [place] [address] GENOMIC MEDICINE [address] [address] Cell count and differential, body fluid (08/27/2018 2:40 PM TRANSFUSION NURSE) [facility] fluid type Synovial [facility] DEPARTMENT OF PATHOLOGY AND GENOMIC MEDICINE Color, fluid [place] [facility] DEPARTMENT OF PATHOLOGY AND GENOMIC MEDICINE Appearance, fluid Cloudy (A) [facility] DEPARTMENT OF PATHOLOGY AND GENOMIC MEDICINE RBC, fluid 16,750 /CMM [facility] DEPARTMENT OF PATHOLOGY AND GENOMIC MEDICINE Nucleated cells, fluid 75 /CMM [facility] DEPARTMENT OF PATHOLOGY AND GENOMIC MEDICINE Fluid mononuclear cell Diff to follow [facility] DEPARTMENT OF PATHOLOGY AND GENOMIC MEDICINE Neutrophils, fluid 59 % [facility] DEPARTMENT OF PATHOLOGY AND GENOMIC MEDICINE Lymphocytes, fluid 32 % [facility] DEPARTMENT OF PATHOLOGY AND GENOMIC MEDICINE Eosinophils, fluid 1 % [facility] DEPARTMENT OF PATHOLOGY AND GENOMIC MEDICINE Macrophages, fluid 8 % [facility] DEPARTMENT OF PATHOLOGY AND GENOMIC MEDICINE Specimen Fluid Performing Organization Address City/State/Zipcode Phone Number [facility] DEPARTMENT OF PATHOLOGY AND [address] [place] [address] GENOMIC MEDICINE after 10/14/2017 Insurance Payer Benefit Plan / Group Subscriber ID Type Phone Address [facility] [facility] OPEN ACCESS/NETWORK xxxxxxxxxxx [facility] MEDICARE MEDICARE PART A AND B xxxxxxxxxxx Medicare [place], [place] (Home) [address] [place] [address] Advance Directives Patient has advance care planning documents on file. For more information, please contact:[address] [address]
--- OUTSIDE RECORDS SUMMARY | 2018-10-15 04:39 | XMS REPORT | Continuity of Care Document ---
:1960 Author Organization Interface Problems Problem Status Onset Classification Date Comments Source Date Reported G06.2 Active 08/26/[address] XRAY Active 07/14/[address] BACK PAIN Active 06/19/20 [facility] Active 05/24/[address] 724.2 ACUTE LOW Active 05/09/20 BACK PAIN 15 [facility] Type 2 diabetes Active Diagnosis 10/29/2017 2.16.840.1. mellitus without [id number] complication, 1.. without long-term current use of insulin Staphylococcus Active Diagnosis 10/29/2017 2.16.840.1. aureus bacteremia 248022.4.39 with sepsis 1..94688 Abscess in Active Diagnosis 10/29/2017 2.16.840.1. epidural space of 062200.4.39 thoracic spine 1..04505 Local infection Active Diagnosis 09/10/2017 2.16.840.1. of the skin and 372911.4.39 subcutaneous 1.11.01347 tissue, unspecified Abrasion of right Active Diagnosis 09/10/2017 2.16.840.1. front wall of 017672.4.39 thorax, 1.11.57778 subsequent encounter DM Active Problem 10/29/2017 2.16.840.1. 419553.4.39 1.11.49594 Chronic back pain Active Problem 10/29/2017 2.16.840.1. 044777.4.39 1.11.10213 HTN Active Problem 10/29/2017 2.16.840.1. 348354.4.39 1.11.79904 Epidural abscess Active Problem 10/29/2017 2.16.840.1. 959392.4.39 1.11.24249 Osteomyelitis Active Problem 10/29/2017 2.16.840.1. 203347.4.39 1.11.13504 Sepsis Active Problem 10/29/2017 2.16.840.1. 563431.4.39 Bacteremia Active Problem 10/29/2017 2.16.840.1. 307843.4.39 Chronic back pain Resolved Problem 09/21/2017 Raoul Wyman [facility] Diabetes Resolved Problem 09/21/2017 Raoul Wyman [facility] HTN (<span Resolved Problem 09/21/2017 ID="[id number]" Garo,M >Confirmed</span> ischer ) Neuro Simple obesity Active Problem 09/21/2017 Raoul Wyman [facility] DORSALGIA, Active UNSPECIFIED [facility] Medications Medication Details Route Status Patient Ordering Order Source Instructions Provider Date Keflex 1 tablet Orally Active 500 MG Orally Nyal[place]onda .16.840.1 every 6 hrs 2016 .214465.4. 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 WASTE: F/P - Black; E - CareFamily Trash Bin Rifampin 1 capsule PO Active 300 MG PO Nyal[place]onda .16.840.1 twice a day 2016 .134662.4. (bid) 391 68 Rifampin 1 capsule PO Active 300 MG PO [place] .16.840.1 twice a day 2016 .460840.4. (bid) 391 68 Doxycycline 1 capsule Orally Active 100 MG Orally Ny[place] .16.840.1 Hyclate every 12 hrs 2016 .682051.4. 391 68 OPANA ER OPANA ER Inactive (C-II) (C-II) 2016 [facility] Controlled Med Controlled Pt's Own Med Med Pt's Own Med, 10 mg, 1 tab, Drug form: MISC, Route: PO, Q12H, 07/04/17 21:00:00 CDT, Duration: 30 day, Stop date: 08/03/17 9:00:00 CDT Opana ER 10 mg, Route: Inactive PO, Drug 2016 [facility] form: ERTAB, Q12H, Dosing Weight 129, kg, Start date: 07/04/17 21:00:00 CDT, Duration: 30 day, Stop date: 08/03/17 9:00:00 CDT Cefazolin 2 qy=576 mL, Active IVPB, ABXQ8H, 2016 [facility] 0 Refill(s) OPANA ER OPANA ER Inactive (C-II) (C-II) 2016 [facility] Controlled Med Controlled Pt's Own Med Med Pt's Own Med, 10 mg, Drug form: MISC, Route: PO, Q12H, Priority: NOW, 07/04/17 11:48:00 CDT, Duration: 30 day, Stop date: 08/03/17 9:00:00 CDT MS Contin 30 mg, 2 tab, No Longer Route: PO, Active 2016 [facility] Drug form: ERTAB, Q12H, Dosing Weight 129, kg, Start date: 07/03/17 21:00:00 CDT, Duration: 30 day, Stop date: 08/02/17 9:00:00 CDTNotes: Do not crush (Same as:Oramorph SR, MS Contin) Oxycontin 20 mg, 2 tab, No Longer Route: PO, Active 2016 [facility] Drug form: ERTAB, Q12H, Dosing Weight 129, kg, Start date: 07/01/17 21:00:00 CDT, Duration: 30 day, Stop date: 07/31/17 9:00:00 CDTNotes: Do not crush or chew. (Same as: OxyContin) Naloxone 0.4 mg, No Longer Route: IVP, Active 2016 [facility] Q2MIN, Dosing Weight 129, kg, PRN Narcotic Reversal, Start date: 06/30/17 14:25:00 CDT, Duration: 8 doses or times, Stop date: Limited # of times Flumazenil 0.2 mg, No Longer Route: IVP, Active 2016 [facility] PRN, Dosing Weight 129, kg, PRN Benzodiazepin e Reversal, Initial dose, Start date: 06/30/17 14:25:00 CDT, Duration: 30 day, Stop date: 07/30/17 14:24:00 CDT Morphine 4 mg, Route: No Longer IVP, Q5Min, 2016 [facility] Dosing Weight 129, kg, PRN Pain Score 7-10, Start date: 06/30/17 14:25:00 CDT, Duration: 3 doses or times, Stop date: Limited # of times Oxycodone 10 mg, Route: No Longer NG, Drug Active 2016 [facility] form: LIQ, Q4H, Dosing Weight 129, kg, PRN Pain Score 7-10, Start date: 06/30/17 14:25:00 CDT, Duration: 30 day, Stop date: 07/30/17 14:24:00 CDT Hydromorphone 0.5 mg, No Longer Route: IVP, 2016 [facility] Q5Min, Dosing Weight 129, kg, PRN Pain Score 7-10, Start date: 06/30/17 14:25:00 CDT, Duration: 4 doses or times, Stop date: Limited # of times Fentanyl 50 microgram, No Longer Route: IVP, 2016 [facility] Q5Min, Dosing Weight 129, kg, PRN Pain Score 7-10, Priority: Routine, Start date: 06/30/17 14:25:00 CDT, Duration: 2 doses or times, Stop date: Limited # of times Diphenhydramine 12.5 mg, No Longer Route: IVP, 2016 [facility] Drug form: INJ, Q6H, Dosing Weight 129, kg, PRN Itching, Start date: 06/30/17 14:25:00 CDT, Duration: 30 day, Stop date: 07/30/17 14:24:00 CDT Albuterol 0.83 2.49 mg, No Longer MG/ML Inhalant Route: NEB, 2016 [facility] Solution Q20Min, Dosing Weight 129, kg, PRN Wheezing, Priority: STAT, Start date: 06/30/17 14:25:00 CDT, Duration: 30 day, Stop date: 07/30/17 14:24:00 CDT Ondansetron 4 mg, Route: No Longer IVP, ONCE, [facility] 2016 [facility] Dosing Weight 129, kg, PRN Nausea & Vomiting, Start date: 06/30/17 14:25:00 CDT Meperidine 12.5 mg, No Longer Route: IVP, [facility] 2016 [facility] Q30Min, Dosing Weight 129, kg, PRN Other -See Comment, For shivering, Start date: 06/30/17 14:25:00 CDT, Duration: 2 doses or times, Stop date: Limited # of times esmolol 10 mg, Route: No Longer IVP, Q5Min, 2016 [facility] Dosing Weight 129, kg, PRN Other -See Comment, Start date: 06/30/17 14:25:00 CDT, Duration: 5 doses or times, Stop date: Limited # of times Hydralazine 10 mg, Route: No Longer IVP, Q20Min, [facility] 2016 [facility] Dosing Weight 129, kg, PRN Elevated BP, Start date: 06/30/17 14:25:00 CDT, Duration: 2 doses or times, Stop date: Limited # of times Labetalol 10 mg, Route: No Longer IVP, Q5Min, 2016 [facility] Dosing Weight 129, kg, PRN Elevated BP, Start date: 06/30/17 14:25:00 CDT, Duration: 5 doses or times, Stop date: Limited # of times Acetaminophen 1,000 mg, No Longer Route: IVPB, [facility] 2016 [facility] Drug form: INJ, ONCE, Dosing Weight 129, kg, PRN Pain Score 1-3, Start date: 06/30/17 14:25:00 CDT, Duration: 1 doses or times, Stop date: Limited # of times Ketorolac 30 mg, Route: No Longer IVP, ONCE, 2016 [facility] Dosing Weight 129, kg, Start date: 06/30/17 14:25:00 CDT, Duration: 1 doses or times, Stop date: 06/30/17 14:25:00 CDT ondansetron Route: IV, Inactive (ANES) Drug form: 2016 [facility] INJ, ONCE, Stop date: 06/30/17 13:39:00 CDT lidocaine (ANES) Route: IV, Inactive Drug form: 2016 [facility] INJ, ONCE, Stop date: 06/30/17 13:34:00 CDT hydromorphone Route: IV, Inactive (ANES) Drug form: 2016 [facility] INJ, ONCE, Stop date: 06/30/17 13:34:00 CDT propofol (ANES) Route: IV, Inactive Drug form: 2016 [facility] INJ, ONCE, Stop date: 06/30/17 13:34:00 CDT LR 1000 mL INJ Route: IV, Inactive (ANES) Total Volume: 2016 [facility] 1,000, Start date: 06/30/17 12:39:00 CDT, Stop [...] mL, No Longer Route: IVP, Active 2016 [facility] Drug form: SOLN, Q4H, Dosing Weight 129, kg, PRN Pain Score 7-10, Start date: 06/30/17 10:32:00 CDT, Duration: 30 day, Stop date: 07/30/17 10:31:00 CDTNotes: (Same as:MORPhine Sulfate) Lactated Ringers 1,000 mL, No Longer 1,000 mL Rate: 100 Active 2016 [facility] ml/hr, Infuse over: 10 hr, Route: IV, Dosing Weight 129 kg, Total Volume: 1,000, Priority: Routine, Start date: 06/30/17 0:00:00 CDT, Duration: 30 day, Stop date: 07/29/17 23:59:00 CDT Clonidine 0.1 mg, 1 No Longer Hydrochloride tab, Route: Active 2016 [facility] 0.1 MG Oral PO, Drug Tablet form: TAB, Q6H, Dosing Weight 129, kg, PRN Other -See Comment, Start date: 06/28/17 17:08:00 CDT, Duration: 30 day, Stop date: 07/28/17 17:07:00 CDT, SBP > 165Notes: (Same As: Catapres) Calcium 2,000 mg, 20 Inactive Gluconate mL, Route: 2016 [facility] IVPB, ONCE, Dosing Weight 129, kg, Start date: 06/28/17 17:01:00 CDT, Stop date: 06/28/17 17:01:00 CDTNotes: WASTE: F/P - Sink; E - Municipal Trash Bin K-Dur 20 20 mEq, 1 Inactive tab, Route: 2016 [facility] PO, Drug form: ERTAB, ONCE, Dosing Weight 129, kg, Start date: 06/28/17 17:01:00 CDT, Stop date: 06/28/17 17:01:00 CDTNotes: (Same as: K-Dur 20) "Do Not Crush" With food and full glass of water gabapentin 800 mg, 2 No Longer cap, Route: Active 2016 [facility] PO, Drug form: CAP, Q8H, Dosing Weight [...] 10 MG tab, 0 Oral Tablet Refill(s) [[place] 10/325] Docusate Sodium 100 mg, 1 No Longer 100 MG Oral cap, Route: Active 2016 [facility] Capsule PO, Drug form: CAP, BID, Dosing Weight 129, kg, Start date: 06/27/17 17:00:00 CDT, Duration: 30 day, Stop date: 07/27/17 9:00:00 CDTNotes: (Same as: Colace) (Do Not Crush) Hydromorphone 15 mg, 30 mL, Inactive Route: IV, 2016 [facility] Initial Loading Dose: 0.4mg, 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: 0.2 mg, 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 Lockout: 10 minutes, Continuous Basal Rate: 0 mg, 4 Hour Limit (In MG): 6, Continuous, Start date: 06/27/17 14:30:00 CDT, Duration: 30 day, Stop date: 07/27/17 14:29:00 CDT Naloxone 0.04 mg, 0.1 No Longer mL, Route: Active 2016 [facility] IVP, Drug form: INJ, Q2MIN, Dosing Weight 129, kg, PRN Narcotic Reversal, Start date: 06/27/17 14:12:00 CDT, Duration: 30 day, Stop date: 07/27/17 14:11:00 CDTNotes: Same as Narcan Morphine 30 mg, 30 mL, Inactive Route: IV, 2016 [facility] Initial Loading Dose: 2 mg, 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 Dose: 1 mg, 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 Lockout: 10 minutes, Continuous Basal Rate: 0 mg, 4 Hour Limit (In MG): 30, Continuous, Start date: 06/27/17 14:00:00 CDT, Duration: 30 day, Stop date: 07/27/17 13:59:00 CDT Meperidine 12.5 mg, 0.25 No Longer mL, Route: Active 2016 [facility] IVP, Drug form: INJ, Q30Min, Dosing Weight 129, kg, PRN Other -See Comment, For shivering, Start date: 06/27/17 13:49:00 CDT, Duration: 2 doses or times, Stop date: Limited # of timesNotes: (Same As: Demerol) Albuterol 0.83 2.49 mg, 3 No Longer MG/ML Inhalant mL, Route: Active 2016 [facility] Solution NEB, Drug form: SOLN, Q20Min, Dosing Weight 129, kg, PRN Wheezing, Priority: STAT, Start date: 06/27/17 13:49:00 CDT, Duration: 30 day, Stop date: 07/27/17 13:48:00 CDTNotes: SEE RT DOCUMENTATION (Same as: Proventil) Diphenhydramine 12.5 mg, 0.25 No Longer mL, Route: Active 2016 [facility] IVP, Drug form: INJ, Q6H, Dosing Weight 129, kg, PRN Itching, Start date: 06/27/17 13:49:00 CDT, Duration: 30 day, Stop date: 07/27/17 13:48:00 CDTNotes: (Same as: Benadryl) Promethazine 6.25 mg, 0.25 No Longer mL, Route: Active 2016 [facility] IVPB, ONCE, Dosing Weight 129, kg, PRN Nausea & Vomiting, Start date: 06/27/17 13:49:00 CDTNotes: Do not give IV push. (Same as: Phenergan) Ondansetron 4 mg, 2 mL, No Longer Route: IVP, [facility] 2016 [facility] Drug form: INJ, ONCE, Dosing Weight 129, kg, PRN Nausea & Vomiting, Start date: 06/27/17 13:49:00 CDTNotes: (Same as: Zofran) MEDICATION WASTE Product Size: 4 mg Product Wasted: _0__ mg Hydromorphone 0.5 mg, Inactive Route: IVP, 2016 [facility] Q5Min, Dosing Weight 129, kg, PRN Pain Score 7-10, Start date: 06/27/17 13:49:00 CDT, Duration: 4 doses or times, Stop date: Limited # of times Naloxone 0.4 mg, 1 mL, No Longer Route: IVP, [facility] 2016 [facility] Drug form: INJ, Q2MIN, Dosing Weight 129, kg, PRN Narcotic Reversal, Start date: 06/27/17 13:49:00 CDT, Duration: 8 doses or times, Stop date: Limited # of timesNotes: Same as Narcan Flumazenil 0.2 mg, 2 mL, No Longer Route: IVP, [facility] 2016 [facility] Drug form: INJ, PRN, Dosing Weight 129, kg, PRN Benzodiazepin e Reversal, Initial dose, Start date: 06/27/17 13:49:00 CDT, Duration: 30 day, Stop date: 07/27/17 13:48:00 CDTNotes: (Same as: Romazicon) Calcium Chloride 1,000 mL, No Longer 0.0014 MEQ/ML / Rate: 125 2016 [facility] Potassium ml/hr, Infuse Chloride 0.004 over: 8 hr, MEQ/ML / Sodium Route: IV, Chloride 0.103 Dosing Weight MEQ/ML / Sodium 129 kg, Total Lactate 0.028 Volume: MEQ/ML 1,000, Start Injectable date: Solution 06/27/17 13:49:00 CDT, Duration: 30 day, Stop date: 07/27/17 13:48:00 CDT Oxycodone 5 mg, 1 tab, No Longer Route: PO, [facility] 2016 [facility] Drug form: TAB, Q4H, Dosing Weight 129, kg, PRN Pain Score 4-6, Start date: 06/27/17 13:49:00 CDT, Duration: 30 day, Stop date: 07/27/17 13:48:00 CDTNotes: (Same as: Roxicodone) Acetaminophen 1,000 mg, 2 No Longer tab, Route: [facility] 2016 [facility] PO, Drug form: TAB, ONCE, Dosing Weight 129, kg, PRN Pain Score 1-3, Start date: 06/27/17 13:49:00 CDT, Duration: 1 doses or times, Stop date: Limited # of timesNotes: Max acetaminophen 4000 mg/day (4 gm/day). (Same as: Tylenol Extra Strength) Hydralazine 10 mg, 0.5 No Longer mL, Route: [facility] 2016 [facility] IVP, Drug form: INJ, Q20Min, Dosing Weight 129, kg, PRN Elevated BP, Start date: 06/27/17 13:49:00 CDT, Duration: 2 doses or times, Stop date: Limited # of timesNotes: (Same as: Apresoline) Push over 5 minutes esmolol 10 mg, 1 mL, No Longer Route: IVP, [address] Drug form: INJ, Q5Min, Dosing Weight 129, kg, PRN Other -See Comment, Start date: 06/27/17 13:49:00 CDT, Duration: 5 doses or times, Stop date: Limited # of timesNotes: (Same as: Brevibloc) Labetalol 10 mg, 2 mL, No Longer Route: IVP, [address] Drug form: INJ, Q5Min, Dosing Weight 129, kg, PRN Elevated BP, Start date: 06/27/17 13:49:00 CDT, Duration: 5 doses or times, Stop date: Limited # of timesNotes: (Same as: Normodyne, Trandate) Push over 2 minutes Give bolus over 2-3 minutes. Naloxone 0.04 mg, 0.1 No Longer mL, Route: Active 2016 [facility] IVP, Drug form: INJ, Q2MIN, Dosing Weight 129, kg, PRN Narcotic Reversal, Start date: 06/27/17 13:43:00 CDT, Duration: 30 day, Stop date: 07/27/17 13:42:00 CDTNotes: Same as Narcan sodium chloride 1,000 mL, No Longer 0.45% 1000 ml Rate: 30 Active 2016 [facility] INJ 1,000 mL ml/hr, Infuse over: 33.3 hr, Route: IV, Dosing Weight 129 kg, Total Volume: 1,000, Start date: 06/27/17 13:43:00 CDT, Duration: 30 day, Stop date: 07/27/17 13:42:00 CDT Promethazine 12.5 mg, 0.5 No Longer mL, Route: Active 2016 [facility] IVPB, Q4H, Dosing Weight 129, kg, PRN Nausea & Vomiting, Start date: 06/27/17 13:43:00 CDT, Duration: 30 day, Stop date: 07/27/17 13:42:00 CDTNotes: Do not give IV push. (Same as: Phenergan) Acetaminophen 1 tab, Route: No Longer 325 MG / PO, Drug Active 2016 [facility] Hydrocodone Form: TAB, Bitartrate 10 MG Dosing Weight Oral Tablet 129, kg, Q4H, PRN Pain Score 4-6, Start date: 06/27/17 13:43:00 CDT, Duration: 30 day, Stop date: 07/27/17 13:42:00 CDTNotes: Do not exceed 4gm/day of acetaminophen . (Same as: [place] 325/10) phenylephrine Route: IV, Inactive (ANES) Drug form: 2016 [facility] INJ, ONCE, Stop date: 06/27/17 12:53:00 CDT hydromorphone Route: IV, Inactive (ANES) Drug form: 2016 [facility] INJ, ONCE, Stop date: 06/27/17 12:38:00 CDT ceFAZolin (ANES) Route: IV, Inactive Drug form: 2016 [facility] INJ, ONCE, Stop date: 06/27/17 12:06:00 CDT cefepime (ANES) Route: IV, Inactive Drug form: 2016 [facility] INJ, ONCE, Stop date: 06/27/17 11:41:00 CDT metroNIDAZOLE Route: IV, Inactive (ANES) Drug form: 2016 [facility] INJ, ONCE, Stop date: 06/27/17 11:16:00 CDT Albuterol 0.833 3 mL, Route: Inactive MG/ML / NEB, Drug 2016 [facility] Ipratropium Form: SOLN, [place] 0.167 Dosing Weight MG/ML Inhalant 129, kg, Solution ONCE, STAT, Start date: 06/27/17 9:38:00 CDT, Stop date: 06/27/17 9:38:00 CDTNotes: (Same as: Duoneb) Calcium Chloride 1,000 mL, No Longer 0.0014 MEQ/ML / Rate: 25 Active 2016 [facility] Potassium ml/hr, Infuse Chloride 0.004 over: 40 hr, MEQ/ML / Sodium Route: IV, Chloride 0.103 Dosing Weight MEQ/ML / Sodium 129 kg, Total Lactate 0.028 Volume: MEQ/ML 1,000, Start Injectable date: Solution 06/27/17 9:38:00 CDT, Duration: 1 day, Stop date: 06/28/17 9:37:00 CDT ondansetron Route: IV, Inactive (ANES) Drug form: 2016 [facility] INJ, ONCE, Stop date: 06/27/17 9:21:00 CDT succinylcholine Route: IV, Inactive (ANES) Drug form: 2016 [facility] INJ, ONCE, Stop date: 06/27/17 9:21:00 CDT propofol (ANES) Route: IV, Inactive Drug form: 2016 [facility] INJ, ONCE, Stop date: 06/27/17 9:21:00 CDT rocuronium Route: IV, Inactive (ANES) Drug form: 2016 [facility] INJ, ONCE, Stop date: 06/27/17 9:21:00 CDT lidocaine (ANES) Route: IV, Inactive Drug form: 2016 [facility] INJ, ONCE, Stop date: 06/27/17 9:16:00 CDT midazolam (ANES) Route: IV, Inactive Drug form: 2016 [facility] SOLN, ONCE, Stop date: 06/27/17 9:16:00 CDT acetaminophen Route: IV, Inactive (ANES) Drug form: 2016 [facility] INJ, ONCE, Stop date: 06/27/17 9:16:00 CDT fentaNYL (ANES) Route: IV, Inactive Drug form: 2016 [facility] INJ, ONCE, Stop date: 06/27/17 9:16:00 CDT ceFAZolin (ANES) Route: IV, Inactive Drug form: 2016 [facility] INJ, ONCE, Stop date: 06/27/17 9:11:00 CDT vancomycin Route: IV, Inactive (ANES) (ANES) Drug form: 2016 [facility] INJ, Start date: 06/27/17 8:37:00 CDT, Stop date: 06/27/17 9:37:00 CDT LR 1000 mL INJ Route: IV, Inactive (ANES) Total Volume: 2016 [facility] 1,000, Start date: 06/27/17 7:56:00 CDT, Stop date: 06/27/17 8:56:00 CDT bupivacaine-epin 30 mL, Route: No Longer ephrine InFILtration( Active 2016 [facility] 0.25%-1:200,000 local), Drug preservative-mechelle Form: INJ, e injectable Dosing Weight solution 129, kg, ONCE, Start date: 06/27/17 7:10:00 CDT, Stop date: 06/27/17 7:10:00 CDTNotes: (bupivacaine- epi 0.25%-1:200,0 00 30 ml VL) Not for use in continuous infusion. (Same As: Marcaine w/Epi) Docusate Sodium 100 mg, 1 No Longer 100 MG Oral cap, Route: Active 2016 [facility] Capsule PO, Drug form: CAP, BID, Dosing Weight 129, kg, Start date: 06/26/17 17:00:00 CDT, Duration: 30 day, Stop date: 07/26/17 9:00:00 CDTNotes: (Same as: Colace) (Do Not Crush) Lactulose 667 20 gm, 30 ml, Inactive MG/ML Oral Route: PO, 2016 [facility] Solution Drug form: SYRP, ONCE, Dosing Weight 129, kg, Start date: 06/26/17 13:48:00 CDT, Stop date: 06/26/17 13:48:00 CDTNotes: (Same as:Chronulac) gabapentin 600 mg, 2 No Longer cap, Route: Active 2016 [facility] PO, Drug form: CAP, Q8H, Dosing Weight 129, kg, Start date: 06/26/17 13:30:00 CDT, Duration: 30 day, Stop date: 07/26/17 5:30:00 CDTNotes: (Same as: Neurontin) Lidocaine 40 1 appl, No Longer MG/ML Topical Route: TOP, Active 2016 [facility] Cream TID, Drug form: SOLN, PRN Pain Score 1-5, Start date: 06/26/17 10:29:00 CDT, Duration: 30 day, Stop date: 07/26/17 10:28:00 CDTNotes: (Same as: Xylocaine) metoprolol 25 mg, 1 tab, No Longer tartrate Route: PO, Active 2016 [facility] Drug form: TAB, Q12H, Dosing Weight 129, kg, Start date: 06/25/17 21:00:00 CDT, Duration: 30 day, Stop date: 07/25/17 9:00:00 CDTNotes: (Same as: Lopressor) Dilaudid 0.8 mg, 0.8 No Longer mL, Route: Active 2016 [facility] IV, Drug form: INJ, Q3H, Dosing Weight 129, kg, PRN Pain Score 4-6, Start date: 06/24/17 10:36:00 CDT, Duration: 30 day, Stop date: 07/24/17 10:35:00 CDT OPANA ER OPANA ER No Longer (C-II) (C-II) Active 2016 [facility] Controlled Med Controlled Pt's Own Med Med Pt's Own Med, 10 mg, 1 tab, Drug form: MISC, Route: PO, BID, 06/23/17 21:00:00 CDT, Duration: 30 day, Stop date: 07/23/17 9:00:00 CDT Opana 10 mg, Route: Inactive PO, Drug 2016 [facility] form: TAB, BID, Dosing Weight 129, kg, Start date: 06/23/17 17:00:00 CDT, Duration: 30 day, Stop date: 07/23/17 9:00:00 CDT *ATTN RN please *ATTN RN Inactive bring pt home please bring 2016 [facility] med Opana to pt home med pharmacy Opana to pharmacy , *ATTN RN, Drug form: MISC, Route: MISC, QSHIFT, 06/23/17 16:00:00 CDT, Duration: 30 day, Stop date: 07/23/17 8:00:00 CDT Motrin 800 mg, 1 No Longer tab, Route: Active 2016 [facility] PO, Drug form: TAB, Q8H, PRN Other -See Comment, Start date: 06/23/17 15:13:00 CDT, Stop date: 07/23/17 15:12:00 CDTNotes: (Same as: Motrin) "Do Not Crush" Take with food. famotidine 20 mg, 1 tab, No Longer Route: PO, Active 2016 [facility] Drug form: TAB, BID, PRN Other -See [...] 100 mL, No Longer Route: IVPB, 2016 [facility] Drug form: INJ, ABXQ8H, Dosing Weight 129, [...] 250 No Longer mL, Route: Active 2016 [facility] IVPB, Drug form: INJ, ABXQ8H, Start date: 06/21/17 0:00:00 CDT, Duration: 30 day, Stop date: 07/20/17 16:00:00 CDT, ABX Indication: Bone/Joint InfectionNote s: TIME CRITICAL MEDICATION Same as: Vancocin-NS (premixed) Infusion rate 2000 mg: infuse over 2.5 hours Vancomycin 1.25 gm, No Longer Route: IV, Active 2016 [facility] Q8H, Dosing Weight 129, kg, Start date: 06/21/17 0:00:00 CDT, Duration: 14 day, Stop date: 07/04/17 16:00:00 CDT, Pharmacy to dose, ABX Indication: Bone/Joint Infection vancomycin 1.25 gm, 250 Inactive mL, Route: 2016 [facility] IVPB, Drug form: INJ, ABXQ8H, Start date: 06/20/17 21:00:00 CDT, Duration: 30 day, Stop date: 07/20/17 13:00:00 CDT, ABX 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 AbcessNotes: TIME CRITICAL MEDICATION Same as: Vancocin-NS (premixed) Infusion rate 2000 mg: infuse over 2.5 hours heparin 5,000 unit, 1 No Longer mL, Route: Active 2016 [facility] SUB-Q, Drug form: INJ, Q12H, Dosing Weight 129, kg, Start date: 06/20/17 21:00:00 CDT, Duration: 30 day, Stop date: 07/20/17 9:00:00 CDTNotes: porcine heparin Robaxin 750 mg, 1 No Longer tab, Route: Active 2016 [facility] PO, Drug form: TAB, TID, Dosing Weight 129, kg, Start date: 06/20/17 21:00:00 CDT, Duration: 30 day, Stop date: 07/20/17 13:00:00 CDTNotes: (Same as:Robaxin) cefepime 2 gm, Route: No Longer IVPB, ABXQ8H, Active 2016 [facility] Dosing Weight 129, kg, (CrCl >/=50 ml/min, [employer] infection or neutropenic fever), Start date: 06/20/17 [...] 1 No Longer cap, Route: Active 2016 [facility] PO, Drug form: CAP, Q8H, Dosing Weight 129, kg, Start date: 06/20/17 16:00:00 CDT, Duration: 30 day, Stop date: 07/20/17 8:00:00 CDTNotes: (Same as: Neurontin) Zosyn 3.375 gm, Inactive Route: IVPB, 2016 [facility] [id number], Dosing Weight 129, kg, CrCl >=20 ml/min infuse over 4 hours, Start date: 06/20/17 14:00:00 CDT, Duration: 7 day, Stop date: 06/27/17 6:00:00 CDT, ABX 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 dural AbcessNotes: (Same as: Zosyn) Dosing based on Piperacillin component MEDICATION WASTE Product Size: 3375 mg Product Wasted: ___ mg Vancomycin 1 ea, Route: Inactive MEL SALDAÑA, 2016 [facility] Dosing Weight 129, kg, Start date: 06/20/17 13:00:00 CDT, day, Stop date: 06/20/17 13:00:00 CDT, Pharmacy to dose, ABX 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 dural Abcess vancomycin + 2,500 mg, Inactive sodium chloride Route: IVPB2016 0.9% 500 mL INJ ONCE, Start (for IV set) 500 date: mL 06/20/17 13:00:00 CDT, Stop date: 06/20/17 13:00:00 CDT, ABX 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 dural AbcessNotes: TIME CRITICAL MEDICATION (Same As: Vancocin) Infusion rate 2001 mg: infuse over 2.5 hours MEDICATION WASTE Product Size: 1000 mg Product Wasted: ___ mg Ativan 1 mg, 0.5 mL, No Longer Route: IVP, Active 2016 [facility] Drug form: INJ, ONCALL, Dosing Weight 129, kg, PRN Other -See Comment, Start date: 06/20/17 12:28:00 CDT, Stop date: 07/20/17 12:27:00 CDT, prior to MRINotes: (Same as: Ativan) Insulin Lispro 4 unit, 0.04 No Longer mL, Route: Active 2016 [facility] SUB-Q, Drug form: SOLN, Bedtime, Dosing Weight [...] Route: No Longer IM, Drug Active 2016 [facility] form: PDR/INJ, PRN, Dosing Weight 129, kg, PRN Blood Glucose Results, Start date: 06/20/17 12:07:00 CDT, Duration: 30 day, Stop date: 07/20/17 12:06:00 CDT Dextrose 50% 25 gm, 50 mL, No Longer Syringe Route: IVP, Active 2016 [facility] Drug Form: INJ, Dosing Weight 129, kg, PRN, PRN Blood Glucose Results, Start date: 06/20/17 12:07:00 CDT, Duration: 30 day, Stop date: 07/20/17 12:06:00 CDT Robaxin 1,000 mg, 10 Inactive mL, Route: 2016 [facility] IV, Drug form: INJ, ONCE, Dosing Weight 129, kg, Start date: 06/20/17 12:04:00 CDT, Stop date: 06/20/17 12:04:00 CDTNotes: (Same as:Robaxin) Acetaminophen 2 tab, Route: Inactive 325 MG / PO, Drug 2016 [facility] Hydrocodone Form: TAB, Bitartrate 10 MG Dosing Weight Oral Tablet 129, kg, Q4H, [[place] 10/325] PRN Pain Score 7-10, Start date: 06/20/17 12:03:00 CDT, Duration: 30 day, Stop date: 07/20/17 12:02:00 CDTNotes: Do not exceed 4gm/day of acetaminophen . (Same as: [place] 325/10) Dilaudid 1 mg, 1 mL, Inactive Route: IV, 2016 [facility] Drug form: INJ, Q3H, Dosing Weight 129, kg, PRN Pain Score 6-10, Start date: 06/20/17 12:02:00 CDT, Duration: 30 day, Stop date: 07/20/17 12:01:00 CDT Tramadol 50 mg, 1 tab, No Longer Route: PO, Active 2016 [facility] Drug form: TAB, Q6H, Dosing Weight 129, kg, Start date: 06/20/17 12:00:00 CDT, Duration: 30 day, Stop date: 07/20/17 6:00:00 CDTNotes: Not to exceed 400mg/day. (Same As: Ultram) Insulin regular 10 unit, 0.1 Inactive mL, Route: 2016 [facility] IVP, Drug form: INJ, ONCE, Dosing Weight 129, kg, Start date: 06/20/17 11:14:00 CDT, Stop date: 06/20/17 11:14:00 CDTNotes: (Same as: Humulin R and NovoLIN R) WASTE: F/P - Black; E - Municipal Trash Bin (Do not shake) Calcium 2 gm, 20 mL, Inactive Gluconate Route: IV, 2016 [facility] ONCE, Dosing Weight 129, kg, Start date: 06/20/17 11:14:00 CDT, Stop date: 06/20/17 11:14:00 CDTNotes: WASTE: F/P - Sink; E - Municipal Trash Bin Sodium 30 gm, 120 Inactive polystyrene mL, Route: 2016 [facility] sulfonate PO, Drug form: SUSP, ONCE, Dosing Weight 129, kg, Start date: 06/20/17 11:14:00 CDT, Duration: 1 doses or times, Stop date: 06/20/17 11:14:00 CDTNotes: (sodium polystyrene sulfonate 15 gm/60 ml KEDAR) Shake well before use. (Same as: Kayexalate, SPS) Dextrose 50% 25 gm, 50 mL, Inactive Syringe Route: IVP, 2016 [facility] Drug Form: INJ, Dosing Weight 129, kg, ONCE, Start date: 06/20/17 11:14:00 CDT, Stop date: 06/20/17 11:14:00 CDT gabapentin 300 300 mg, 1 Inactive MG Oral Capsule cap, Route: 2016 [facility] PO, Drug form: CAP, Q8Hnow, Dosing Weight 129, kg, Start date: 06/20/17 9:00:00 CDT, Duration: 30 day, Stop date: 07/20/17 1:00:00 CDTNotes: (Same as: Neurontin) metoprolol 25 mg, 1 tab, No Longer tartrate Route: PO, Active 2016 [facility] Drug form: TAB, Q12H, Dosing Weight 129, kg, Start date: 06/20/17 9:00:00 CDT, Duration: 30 day, Stop date: 07/19/17 21:00:00 CDTNotes: (Same as: Lopressor) Morphine 2 mg, 1 mL, Inactive Route: IVP, 2016 [facility] Drug form: INJ, Q4H, Dosing Weight 129, kg, PRN Chest Pain, Start date: 06/20/17 8:19:00 CDT, Duration: 30 day, Stop date: 07/20/17 8:18:00 CDTNotes: (Same as:MORPhine Sulfate) lisinopril 20 mg 20 mg=1 tab, Active oral tablet PO, Daily, 0 2016 [facility] Refill(s) Dilaudid 0.5 mg, 0.5 Inactive mL, Route: 2016 [facility] IVP, Drug form: INJ, Q4H, Dosing Weight 129, kg, PRN Pain Score 7-10, Start date: 06/20/17 5:10:00 CDT, Duration: 30 day, Stop date: 07/20/17 5:09:00 CDT Saline Flush 10 ml, Route: No Longer 0.9% IVP, Drug Active 2016 [facility] Form: INJ, Dosing Weight 129.545, kg, PRN, PRN Line Flush, Start date: 06/20/17 2:45:00 CDT, Duration: 30 day, Stop date: 07/20/17 2:44:00 CDTNotes: (Same as: BD Posiflush) sodium chloride 1,000 mL, No Longer 0.9% 1000 ml INJ Rate: 125 Active 2016 [facility] 1,000 mL ml/hr, Infuse over: 8 hr, Route: IV, Dosing Weight 129.545 kg, Total Volume: 1,000, Start date: 06/20/17 2:45:00 CDT, Duration: 30 day, Stop date: 07/20/17 2:44:00 CDT Ondansetron 4 mg, 2 mL, No Longer Route: IVP, Active 2016 [facility] Drug form: INJ, Q6H, Dosing Weight 129.545, kg, PRN Nausea & Vomiting, Start date: 06/20/17 2:45:00 CDT, Duration: 30 day, Stop date: 07/20/17 2:44:00 CDTNotes: (Same as: Zofran) MEDICATION WASTE Product Size: 4 mg Product Wasted: ___ mg Morphine 4 mg, 1 mL, Inactive Route: IVP, 2016 [facility] Drug form: SOLN, Q4H, Dosing Weight 129.545, kg, PRN Pain Score 7-10, Start date: 06/20/17 2:45:00 CDT, Duration: 30 day, Stop date: 07/20/17 2:44:00 CDTNotes: (Same as:MORPhine Sulfate) Acetaminophen 650 mg, 2 No Longer tab, Route: Active 2016 [facility] PO, Drug form: TAB, Q4H, Dosing Weight 129.545, kg, PRN Pain 1-3/Temp > 100.4 F, Start date: 06/20/17 2:45:00 CDT, Duration: 30 day, Stop date: 07/20/17 2:44:00 CDTNotes: Do not exceed 4 gm/day. (Same as: Tylenol) Morphine 10 mg, 2.5 No Longer mL, Route: Active 2016 [place] IVP, Drug form: SOLN, ONCE, Dosing Weight 129.545, kg, Priority: STAT, Start date: 06/19/17 22:50:00 CDT, Stop date: 06/19/17 22:50:00 CDTNotes: (Same as: MORPhine Sulfate) Valium 10 mg, 2 mL, No Longer Route: IVP, Active 2016 [place] Drug form: INJ, ONCE, Dosing Weight 129.545, kg, Priority: STAT, Start date: 06/19/17 22:48:00 CDT, Stop date: 06/19/17 22:48:00 CDTNotes: (Same as: Valium) WASTE: F/P - Black; E - White/Blue sodium chloride 1,000 mL, No Longer 0.9% 1000 ml INJ Rate: 999 Active 2016 [place] 1,000 mL ml/hr, Infuse over: 1 hr, Route: IV, Dosing Weight 129.545 kg, Total Volume: 1,000, Start date: 06/19/17 22:48:00 CDT, Duration: 30 day, Stop date: 07/19/17 22:47:00 CDT Benadryl 50 mg, 1 mL, No Longer Route: IVP, Active 2016 [place] Drug form: INJ, ONCE, Dosing Weight 129.545, kg, Priority: STAT, Start date: 06/19/17 22:48:00 CDT, Stop date: 06/19/17 22:48:00 CDTNotes: (Same as: Benadryl) Opana ER (Schedule II Oral Active 10 MG Oral Garza 2.16.840.1 Drug) TAKE 1 .520006.4. TABLET BY 391.11.225 MOUTH EVERY 68 12 HOURS FOR PAIN Metformin HCl TK 1 T PO BID Oral Active 500 MG Oral Garza 2.16.840.1 .282505.4. 391.11.225 68 Methocarbamol TAKE 1 TO 2 Oral Active 500 MG Oral Garza 2.16.840.1 TABLETS BY .442318.4. MOUTH EVERY 8 391.11.225 HOURS 68 NEEDED FOR MUSCLE SPASM 5 DAYS Duexis TAKE 1 TABLET Oral Active 800-26.6 MG Garza 2.16.840.1 BY MOUTH 3 Oral .220754.4. TIMES A DAY 391.11.225 FOR 30 DAYS 68 Rifampin 1 capsule PO Active 300 MG PO Garza 2.16.840.1 twice a day .878229.4. (bid) 391.11.225 68 Cefazolin in D5W not defined NA Active Garza 2.16.840.1 .333952.4. 391.11.225 68 Lisinopril TK 1 T PO QD Oral Active 5 MG Oral Garza 2.16.840.1 .489975.4. 391.11.225 68 Warfarin Sodium TK 1 T PO Oral Active 7.5 MG Oral Garza 2.16.840.1 NIGHT BEFORE .962483.4. SURGERY 391.11.225 68 Cyclobenzaprine TK 1 T PO Q 8 Oral Active 10 MG Oral Garza 2.16.840.1 HCl H PRN MUSCLE .283507.4. SPASMS 391.11.225 68 Atorvastatin TK 1 T PO QD Oral Active 20 MG Oral Garza 2.16.840.1 Calcium .653289.4. 391.11.225 68 Doxycycline 1 capsule Orally Active 100 MG Orally Garza 2.16.840.1 Hyclate every 12 hrs .720545.4. 391.11.225 68 Meloxicam TK 1 T PO BID Oral Active 7.5 MG Oral Garza 2.16.840.1 .531661.4. 391 68 Xarelto TK 1 T PO Q Oral Active 10 MG Oral Garza 2.16.840.1 24 HOURS FOR .505981.4. 13 DAYS 391 68 Hydrocodone-Acet (Schedule II Oral Active 10-325 MG Garza 2.16.840.1 aminophen Drug) TAKE 1 Oral .715264.4. TABLET BY 391..225 MOUTH EVERY 6 68 HOURS NEEDED FOR PAIN Gabapentin TAKE 1 TABLET Oral Active 800 MG Oral Garza 2.16.840.1 BY MOUTH 3 .899286.4. TIMES A DAY 391.11.225 FOR 30 DAYS 68 Oxymorphone HCl (Schedule II Oral Active 5 MG Oral Garza 2.16.840.1 Drug) TAKE 1 .641650.4. TABLET BY ..225 MOUTH EVERY 6 68 HOURS NEEDED FOR PAIN Keflex 1 tablet Orally Active 500 MG Orally Garza 2.16.840.1 every 6 hrs .227373.4. 391 68 Allergies, Adverse Reactions, Alerts Substance Category Reaction Severity Reaction Status Date Comments Source type Reported N.K.D.A. 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 Follow-up. COMPARISON: MRI spine dated 06/25/2017 TECHNIQUE: Helical acquisition of the thoracic and lumbar spine was obtained following the intrathecal administration of contrast. No intravenous contrast was administered. Reformatted axial, coronal, a nd sagittal images were provided for review. CT Radiation Dose: GZF=2480 mGy-cm. FINDINGS: CT THORACIC SPINE: The normal [...] fusion and posterior stabilization appears satisfactory. 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 Follow-up. COMPARISON: MRI spine dated 06/25/2017 TECHNIQUE: Helical acquisition of the thoracic and lumbar spine was obtained following the intrathecal administration of contrast. No intravenous contrast was administered. Reformatted axial, coronal, a nd sagittal images were provided for review. CT Radiation Dose: PIH=0046 mGy-cm. FINDINGS: CT THORACIC SPINE: The normal [...] fusion and posterior stabilization appears satisfactory. SL: [id number] Spine Spine lumbar The results of this study were reported on accession number . Please refer to that report. 09/05 lumbar myelogram DX /2016 myelogram DX Read by: Bob Posey MD Dictated Date/time: 09/05/17 15:44 Electronically Signed by: Bob Posey MD 09/05/17 15:47 FINAL REPORT Spine Spine Patient Name: MARIA ESTHER CHAUDHARY 09/05 thoracic thoracic /2016 myelogram myelogram DX : 1960; Age: 56 years y/o Male DX MR: [id number] Read by: Bob Posey MD Dictated Date/time: [...] to a separate CT myelogram report. SL: [id number] Chest 2 Chest 2 Study: Chest 2 views DX 07/14 - views DX views - [facility] Clinical Indication: - Z09 Encounter for follow-up [...] postoperative changes of the upper chest. SL: [id number] CHEM PANEL eGFR 88 07/01 Result Comment: [...] is not recommended in the following populations: [facility] 3m2 Individuals with unstable creatinine concentrations, including [...] meq/L 3.5 - 5.1 07/01 Lvl /2016 [facility] CHEM PANEL Chloride Lvl 96 meq/L 95 - 109 07/01 [facility] CHEM PANEL CO2 30 meq/L 24 - 32 07/01 [facility] CHEM PANEL Calcium Lvl 8.8 mg/dL 8.5 - 10.5 07/01 [facility] CHEM PANEL Glucose Lvl 235 mg/dL 70 - 99 07/01 [facility] CHEM PANEL BUN 12 mg/dL 7 - 22 07/01 [facility] CHEM PANEL Creatinine 0.95 mg/dL 0.50 - 07/01 Lvl 1.40 /2016 [facility] CHEM PANEL Sodium Lvl 135 meq/L 135 - 145 07/01 [facility] CHEM PANEL AGAP 13.2 meq/L 10.0 - 07/01 MH 20.0 [facility] HEMATOLOGY MCHC 32.6 g/dL 32.0 - 07/01 MH 36.0 [facility] HEMATOLOGY MCH 26.3 pg 27.0 - 07/01 MH 31.0 [facility] HEMATOLOGY MCV 80.5 fL 80.0 - 07/01 MH 94.0 [facility] HEMATOLOGY Hct 31.2 % 42.0 - 07/01 MH 54.0 [facility] HEMATOLOGY Hgb 10.2 g/dL 14.0 - 07/01 18.0 [facility] HEMATOLOGY RBC 3.87 M/CMM 4.70 - 09 MH 6.10 [facility] HEMATOLOGY MPV 7.5 fL 7.4 - 10.4 07/01 [facility] HEMATOLOGY Platelet 374 K/CMM 133 - 450 07/01 [facility] HEMATOLOGY RDW 14.7 % 11.5 - 07/01 MH 14.5 [facility] HEMATOLOGY WBC 4.9 K/CMM 3.7 - 10.4 07/01 [facility] HEMATOLOGY Eosinophils 0.2 K/CMM 0.0 - 0.5 07/01 # /2016 [facility] HEMATOLOGY Monocytes # 0.2 K/CMM 0.0 - 0.8 07/01 [facility] HEMATOLOGY Basophils 0.7 % 0.0 - 1.0 07/01 [facility] HEMATOLOGY Eosinophils 3.8 % 0.0 - 4.0 07/01 [facility] HEMATOLOGY Monocytes 4.9 % 2.0 - 12.0 07/01 [facility] HEMATOLOGY Lymphocytes 1.4 K/CMM 1.0 - 5.5 07/01 # /2016 [facility] HEMATOLOGY Segs-Bands # 3.0 K/CMM 1.5 - 8.1 07/01 [facility] HEMATOLOGY Lymphocytes 29.4 % 20.0 - 07/01 MH 40.0 [facility] HEMATOLOGY Segs 61.2 % 45.0 - 07/01 MH 75.0 [facility] HEMATOLOGY RDW 14.5 % 11.5 - 06/30 MH 14.5 [facility] HEMATOLOGY MPV 7.2 fL 7.4 - 10.4 06/30 [facility] HEMATOLOGY Platelet 366 K/CMM 133 - 450 06/30 [facility] HEMATOLOGY Hct 29.3 % 42.0 - 06/30 MH 54.0 [facility] HEMATOLOGY RBC 3.59 M/CMM 4.70 - 06/30 MH 6.10 [facility] HEMATOLOGY Hgb 9.6 g/dL 14.0 - 06/30 MH 18.0 [facility] HEMATOLOGY WBC 5.5 K/CMM 3.7 - 10.4 06/30 [facility] HEMATOLOGY MCHC 32.7 g/dL 32.0 - 06/30 MH 36.0 [facility] HEMATOLOGY MCV 81.5 fL 80.0 - 06/30 MH 94.0 [facility] HEMATOLOGY MCH 26.7 pg 27.0 - 06/30 MH 31.0 [facility] HEMATOLOGY Lymphocytes 1.7 K/CMM 1.0 - 5.5 06/30 # /2016 [facility] HEMATOLOGY Monocytes # 0.3 K/CMM 0.0 - 0.8 06/30 [facility] HEMATOLOGY Eosinophils 0.2 K/CMM 0.0 - 0.5 06/30 MH # /2017 [facility] HEMATOLOGY Basophils 0.8 % 0.0 - 1.0 06/30 [facility] HEMATOLOGY Segs-Bands # 3.2 K/CMM 1.5 - [...] is not recommended in the following populations: [facility] 3m2 Individuals with unstable creatinine concentrations, including [...] 10.3 meq/L 10.0 - 06/28 MH 20.0 [facility] CHEM PANEL Calcium Lvl 6.3 mg/dL 8.5 - 10.5 06/28 Result Comment: [facility] Critical Result(s) called to Silvestre Chowdary at 06/28/2017 06:46 by nf. Read back OK. CHEM PANEL Glucose Lvl 99 mg/dL 70 - 99 06/28 [facility] CHEM PANEL Creatinine 0.54 mg/dL 0.50 - 06/28 MH Lvl 1.40 /2016 [facility] CHEM PANEL BUN 7 mg/dL 7 - 22 06/28 [facility] CHEM PANEL Chloride Lvl 113 meq/L 95 - 109 06/28 [facility] CHEM PANEL Potassium 3.3 meq/L 3.5 - 5.1 06/28 [facility] Lvl /2016 [facility] CHEM PANEL CO2 23 meq/L 24 - 32 06/28 [facility] CHEM PANEL Sodium Lvl 143 meq/L 135 - 145 06/28 [facility] HEMATOLOGY WBC 7.3 K/CMM 3.7 - 10.4 06/28 /2016 [facility] HEMATOLOGY RBC 3.18 M/CMM 4.70 - 06/28 MH 6.10 [facility] HEMATOLOGY Platelet 291 K/CMM 133 - 450 06/28 [facility] HEMATOLOGY RDW 14.7 % 11.5 - 06/28 MH 14.5 /2016 [facility] HEMATOLOGY MPV 7.5 fL 7.4 - 10.4 06/28 [facility] HEMATOLOGY Hct 26.0 % 42.0 - 06/28 MH 54.0 [facility] HEMATOLOGY Hgb 8.5 g/dL 14.0 - 06/28 MH 18.0 [facility] HEMATOLOGY MCV 81.9 fL 80.0 - 06/28 MH 94.0 [facility] HEMATOLOGY MCH 26.8 pg 27.0 - 06/28 MH 31.0 [facility] HEMATOLOGY MCHC 32.8 g/dL 32.0 - 06/28 MH 36.0 [facility] HEMATOLOGY Basophils 0.5 % 0.0 - 1.0 06/28 /2016 [facility] HEMATOLOGY Monocytes # 0.3 K/CMM 0.0 - 0.8 06/28 /2016 [facility] HEMATOLOGY Lymphocytes 1.0 K/CMM 1.0 - 5.5 06/28 MH # /2016 [facility] HEMATOLOGY Segs-Bands # 5.9 K/CMM 1.5 - 8.1 06/28 [facility] HEMATOLOGY Eosinophils 0.1 K/CMM 0.0 - 0.5 06/28 MH # /2016 [facility] HEMATOLOGY Eosinophils 1.3 % 0.0 - 4.0 06/28 /2016 [facility] HEMATOLOGY Segs 80.5 % 45.0 - 06/28 MH 75.0 /2016 [facility] HEMATOLOGY Monocytes 3.9 % 2.0 - 12.0 06/28 /2016 [facility] HEMATOLOGY Lymphocytes 13.8 % 20.0 - 06/28 MH 40.0 /2016 [facility] BLOOD BANK ABO/Rh A POS 06/27 RESULTS /2016 [facility] BLOOD BANK Antibody Negative 06/27 RESULTS Scrn /2016 [facility] (06/27/17 9:20 AM) Chest Chest 1view Patient Name: MARIA ESTHER CHAUDHARY 06/27 - 1view DX DX - [facility] : 1960; Age: 56 years y/o Male MR: [id number] Read by: Narendra Burch MD Dictated Date/time: [...] Phosphorus 2.9 mg/dL 2.5 - 4.5 06/26 [facility] CHEM PANEL Magnesium 2.5 mg/dL 1.8 - 2.4 06/26 Lvl /2016 [facility] CHEM PANEL eGFR 95 06/26 Result Comment: [...] is not recommended in the following populations: [facility] 3m2 Individuals with unstable creatinine concentrations, including [...] CO2 28 meq/L 24 - 32 06/26 [facility] CHEM PANEL Calcium Lvl 8.5 mg/dL 8.5 - 10.5 06/26 [facility] CHEM PANEL ALT 43 unit/L 0 - 65 06/26 [facility] CHEM PANEL AST 26 unit/L 0 - 37 06/26 [facility] CHEM PANEL Albumin Lvl 2.1 g/dL 3.5 - 5.0 06/26 [facility] CHEM PANEL Total 7.2 g/dL 6.4 - 8.4 06/26 Protein [facility] CHEM PANEL Bili Total 0.2 mg/dL 0.2 - 1.3 06/26 [facility] CHEM PANEL Alk Phos 237 unit/L 39 - 136 06/26 [facility] CHEM PANEL Creatinine 1.00 mg/dL 0.50 - 06/26 Lvl 1.40 /2016 [facility] CHEM PANEL Sodium Lvl 136 meq/L 135 - 145 06/26 [facility] CHEM PANEL Chloride Lvl 101 meq/L 95 - 109 06/26 [facility] CHEM PANEL Potassium 4.1 meq/L 3.5 - 5.1 06/26 Lvl /2016 [facility] CHEM PANEL BUN 9 mg/dL 7 - 22 06/26 [facility] CHEM PANEL Glucose Lvl 136 mg/dL 70 - 99 06/26 [facility] CHEM PANEL AGAP 11.1 meq/L 10.0 - 06/26 MH 20.0 [facility] CHEM PANEL B/C Ratio 9 6 - 25 06/26 [facility] CHEM PANEL A/G Ratio 0.4 0.7 - 1.6 06/26 [facility] CHEM PANEL Globulin 5.1 g/dL 2.7 - 4.2 06/26 [facility] HEMATOLOGY INR 1.12 0.85 - 06/26 1.17 [facility] HEMATOLOGY PT 14.6 s 12.0 - 06/26 MH 14.7 [facility] HEMATOLOGY Basophils # 0.1 K/CMM 0.0 - 0.2 06/26 [facility] Chest w Chest w EXAM: CT CHEST WITH CONTRAST 06/[address] /2016 - [facility] CT DATE: 06/26/2017 3:26 PM CDT Read [...] contrast: [address] Radiation Dose: SAU=155.74 mGy-cm FINDINGS: LUNGS AND PLEURA: Small bilateral [...] diverticulum. 8. Subcentimeter left thyroid nodule. SL: [id number] Biopsy Biopsy with Patient Name: MARIA ESTHER CHAUDHARY 06/26 - with ultrasound /2016 [facility] ultrasound guidance VR : 1960; Age: 56 years Male guidance VR MR: [id number] Read by: Dami Gilbert MD Dictated Date/time: [...] and written informed consent was obtained. 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 SL: [id number] Chest Chest 1view Study: Chest 1view DX 06[facility]26[facility]2017 1:24 [facility] Patient Name: MARIA ESTHER CHAUDHARY MR: [id number] Read by: Collin Pradhan MD Dictated Date/time: [...] junction. SL: TPAINTER-PC Sternoclav Sternoclavic Patient Name: MARIA ESTHER CHAUDHARY 06/26 - icular ular joint /2016 - joint DX DX : 1960; Age: 56 years y/o Male MR: [id number] Read by: Narendra Burch MD Dictated Date/time: [...] at the SVC. IMPRESSION: Radiographically unremarkable. SL: [id number] Spine Spine entire Patient Name: MARIA ESTHER CHAUDHARY 06/25 - entire w/wo - w/wo contrast MRI : 1960; Age: 56 years y/o Male contrast MRI MR: [id number] Read by: Rashard Newman MD Dictated Date/time: [...] Bartholomew, on 06/25/2017 at 4:50 PM. SL: [id number] HEMATOLOGY Basophils # 0.1 K/CMM 0.0 - 0.2 06/24 [facility] CHEM PANEL Magnesium 2.7 mg/dL 1.8 - 2.4 06/23 Lvl /2016 [facility] HEMATOLOGY Basophils # 0.1 K/CMM 0.0 - 0.2 06/23 [facility] CHEM PANEL Procalcitoni 1.56 ng/mL 0.00 - 06/22 n Lvl 0.10 [facility] TOXICOLOGY Vanco Tr 16.3 ug/ml 06/22 [facility] TOXICOLOGY Vanco Tr TND 00:00 06/22 [facility] Ext Upper Ext Upper US ARM VEINS 06/21 - Venous Venous /2016 - [facility] Doppler Doppler Unilat US Unilat US History: [...] IMAGES 06/21 - contrast contrast CT - [facility] CT HISTORY: ; - Request CAT scan [...] asked to inform the patient's physician. SL: [id number] CHEM PANEL Magnesium 2.6 mg/dL 1.8 - 2.4 06/21 Lvl /2016 [facility] HEMATOLOGY Plt Morph Clumped 06/21 [facility] (06/21/17 4:49 AM) HEMATOLOGY Sed Rate 97 mm/h 0 - 15 06/21 [facility] CARDIAC Total CK 159 unit/L 12 - 06/20 ENZYMES [facility] CARDIAC CK MB 0.8 ng/mL 0.5 - 3.6 06/20 ENZYMES [facility] CARDIAC Troponin-I null 0.00 - 06/20 ENZYMES 0.40 [facility] CARDIAC CK MB Index 0.5 0.0 - 2.5 06/20 ENZYMES [facility] IMMUNOLOGY C-REACTIVE 134.0 mg/L <=2.9 mg/L 06/20 PROTEIN [facility] CARDIAC CK MB 0.9 ng/mL 0.5 - 3.6 06/20 ENZYMES [facility] CARDIAC Troponin-I null 0.00 - 06/20 ENZYMES 0.40 [facility] CARDIAC Total CK 95 unit/L - 06/20 ENZYMES [facility] Clavicle Clavicle DX Patient Name: MARIA ESTHER CHAUDHARY 06/20 - DX /2016 - [facility] : 1960; Age: 56 years y/o Male MR: [id number] Read by: Narendra Burch MD Dictated Date/time: 06/20/17 17:08 Electronically Signed by: Narendra Burch MD 06/20/17 17:08 FINAL REPORT Study: Clavicle DX 06/20/2017 12:52 PM CDT Ordering Physician: Olayinka Johnson MD Clinical Indication: - pain and bulge by the sternalclavicular joint; Comparison right shoulder 06/19/2017. Right clavicle 2 views No clavicular fracture, subluxation or lesion is evident radiographically. SL: [id number] CARDIAC CK MB Index 0.7 0.0 - 2.5 06/20 [facility] CARDIAC CK MB 0.7 ng/mL 0.5 - 3.6 06/20 [facility] CARDIAC Troponin-I null 0.00 - 06/20 EN[facility]YM[facility] 0.40 2017 [facility] CARDIAC Total CK 105 unit/L - 06/20 [facility] CHEM PANEL Bili Total 1.3 mg/dL 0.2 - 1.3 06/20 [facility] CHEM PANEL Alk Phos 167 unit/L 39 [...] Total 8.1 g/dL 6.4 - 8.4 06/20 [facility] CHEM PANEL B/C Ratio 17 6 - 25 06/20 [facility] URINE AND UA Protein Negative Negative 06/20 [facility] [place] (06/19/17 11:49 PM) URINE AND UA pH 6.0 5.0 - 8.0 06/20 [place] URINE AND UA Turbidity Clear Clear 06/20 [facility] [place] (06/19/17 11:49 PM) URINE AND UA Spec Grav <=1.005 <=1.030 06/20 [facility]
*NA*< /2016 [place] br/>( 11:49 PM) URINE AND UA Color Yellow Yellow 06/20 [place] *NA* (06/19/17 11:49 PM) URINE AND UA Bacteria None Seen None Seen 06/20 [facility] [place] (06/19/17 11:49 PM) URINE AND UA RBC None Seen 0 - 2 06/20 [facility] [place] (06/19/17 11:49 PM) URINE AND UA Nitrite Negative Negative 06/20 [facility] [place] (06/19/17 11:49 PM) URINE AND UA WBC 0-2 /HPF None Seen 06/20 [facility] /HPF /2016 [place] URINE AND UA Sq Epi None Seen Few 06/20 [facility] [place] (06/19/17 11:49 PM) URINE AND UA Leuk Est Negative Negative 06/20 [place] (06/19/17 11:49 PM) URINE AND UA Blood Negative Negative 06/20 [facility] [place] (06/19/17 11:49 PM) URINE AND UA 0.2 EU/dL 0.1 - 1.0 06/20 [facility] Urobilinogen [place] URINE AND UA Ketones Negative Negative 06/20 [facility] [place] *NA* (06/19/17 11:49 PM) URINE AND UA Bili Negative Negative 06/20 [facility] [place] *NA* (06/19/17 11:49 PM) URINE AND UA Glucose Negative Negative 06/20 [facility] [place] (06/19/17 11:49 PM) CHEM PANEL B/C Ratio 17 6 - 25 06/20 [place] CHEM PANEL Globulin 5.3 g/dL 2.7 - 4.2 06/20 [place] CHEM PANEL A/G Ratio 0.6 0.7 - 1.6 06/20 [place] CHEM PANEL AGAP 9.5 meq/L 10.0 - 06/20 20.0 [place] CHEM PANEL ASPARTATE 12 unit/L 0 - 37 06/20 TRANSAMINASE [place] CHEM PANEL eGFR 86 06/20 Result Comment: [...] is not recommended in the following populations: [address] Individuals with unstable creatinine concentrations, including [...] Total 0.4 mg/dL 0.2 - 1.3 06/20 [place] CHEM PANEL Total 8.5 g/dL 6.4 - 8.4 06/20 [place] CHEM PANEL Chloride Lvl 94 meq/L 95 - 109 06/20 [place] CHEM PANEL CO2 30 meq/L 24 - 32 06/20 [place] CHEM PANEL Calcium Lvl 8.8 mg/dL 8.5 - 10.5 06/20 [place] CHEM PANEL ALANINE 48 unit/L 0 - 65 06/20 AMINOTRANSFE [place] [facility] CHEM PANEL Albumin Lvl 3.2 g/dL 3.5 - 5.0 06/20 [place] CHEM PANEL Alk Phos 150 unit/L 39 - 136 06/20 [place] CHEM PANEL Potassium 4.5 meq/L 3.5 - 5.1 06/20 MH Lvl /2016 [place] CHEM PANEL BUN 19 mg/dL 7 - 22 06/20 [place] CHEM PANEL Glucose Lvl 260 mg/dL 70 - 99 06/20 [place] CHEM PANEL Creatinine 1.09 mg/dL 0.50 - 06/20 MH Lvl 1.40 [place] CHEM PANEL Sodium Lvl 129 meq/L 135 - 145 06/20 [place] HEMATOLOGY RBC Morph Normal 06/20 [place] (06/19/17 11:31 PM) HEMATOLOGY Plt Morph Normal 06/20 [place] (06/19/17 11:31 PM) HEMATOLOGY Segs 74.0 % 45.0 - 06/20 MH 75.0 [place] HEMATOLOGY Segs-Bands # 12.6 K/CMM 1.5 - 8.1 06/20 [place] HEMATOLOGY Monocytes 5.0 % 2.0 - 12.0 06/20 [place] HEMATOLOGY Lymphocytes 13.0 % 20.0 - 06/20 MH 40.0 [place] HEMATOLOGY Bands 7.0 % 0.0 - 11.0 06/20 [place] HEMATOLOGY Metamyelocyt 1.0 % 0.0 - 1.0 06/20 es [place] HEMATOLOGY Monocytes # 0.8 K/CMM 0.0 - 0.8 06/20 [place] HEMATOLOGY Lymphocytes 2.0 K/CMM 1.0 - 5.5 06/20 MH # [place] HEMATOLOGY Hct 37.7 % 42.0 - 06/20 MH 54.0 [place] HEMATOLOGY MCV 80.7 fL 80.0 - 06/20 MH 94.0 [place] HEMATOLOGY MCHC 32.5 g/dL 32.0 - 06/20 MH 36.0 /2016 [place] HEMATOLOGY MCH 26.2 pg 27.0 - 06/20 MH 31.0 [place] HEMATOLOGY RDW 14.3 % 11.5 - 06/20 MH 14.5 [place] HEMATOLOGY MPV 7.9 fL 7.4 - 10.4 06/20 [place] HEMATOLOGY Platelet 326 K/CMM 133 - 450 06/20 [place] HEMATOLOGY Hgb 12.2 g/dL 14.0 - 06/20 MH 18.0 [place] HEMATOLOGY RBC X 10x6 4.67 M/CMM 4.70 - 06/20 MH 6.10 [place] HEMATOLOGY WBC X 10x3 15.5 K/CMM 3.7 - 10.4 06/20 [place] MOLECULAR Streptococcu Not Detected Not 06/20 DIAGNOSTIC s spp. Detected /2016 [place] (06/19/17 11:31 PM) MOLECULAR Shirley Not Detected Not 06/20 DIAGNOSTIC Vancomycin Detected /2016 [place] Resistance (06/19/17 11:31 PM) MOLECULAR Listeria Not Detected Not 06/20 DIAGNOSTIC spp. Detected /2016 [place] (06/19/17 11:31 PM) MOLECULAR mecA Not Detected Not 06/20 DIAGNOSTIC Methicillin Detected [place] Resistance (06/19/17 11:31 PM) MOLECULAR vanB Not Detected Not 06/20 DIAGNOSTIC Vancomycin Detected [place] Resistance (06/19/17 11:31 PM) MOLECULAR E. faecium Not Detected Not 06/20 DIAGNOSTIC Detected [place] (06/19/17 11:31 PM) MOLECULAR Staphylococc Detected Not 06/20 DIAGNOSTIC us spp. Detected /2016 [place] *ABN* (06/19/17 11:31 PM) MOLECULAR S. Not Detected Not 06/20 DIAGNOSTIC lugdunensis Detected [place] (06/19/17 11:31 PM) MOLECULAR S. Not Detected Not 06/20 DIAGNOSTIC epidermidis Detected /2016 [place] (06/19/17 11:31 PM) MOLECULAR S. aureus Detected Not 06/20 DIAGNOSTIC Detected /2016 [place] *ABN* (06/19/17 11:31 PM) MOLECULAR S. Not Detected Not 06/20 DIAGNOSTIC pneumoniae Detected /2016 [place] (06/19/17 11:31 PM) MOLECULAR E. faecalis Not Detected Not 06/20 DIAGNOSTIC Detected [place] (06/19/17 11:31 PM) MOLECULAR S. Not Detected Not 06/20 DIAGNOSTIC agalactiae Detected [place] (06/19/17 11:31 PM) MOLECULAR S. anginosus Not Detected Not 06/20 DIAGNOSTIC grp Detected [place] (06/19/17 11:31 PM) MOLECULAR S. pyogenes Not Detected Not 06/20 DIAGNOSTIC Detected [place] (06/19/17 11:31 PM) Spine Spine lumbar CT LUMBAR SPINE 06/19 - [facility] lumbar wo wo contrast /2016 - [place] [...] views of right shoulder joint. 06/19 - [facility] series DX series DX - [place] History: Right arm pain Read by: Janet Ma MD Dictated Date/time: 06/19/17 22:13 Electronically Signed by: Janet Ma MD 06/19/17 22:15 FINAL REPORT Comments: Normal bone mineralization. No acute fracture or dislocation. Visualized right lung and right ribs are within normal limits. IMPRESSION: No acute fracture or dislocation. Spine Spine lumbar Name: MARIA ESTHER CHAUDHARY 06/02 - [facility] lumbar wo wo contrast /2014 - [place] contrast MRI : 1960 MRI Read by: [...] Value Date Comments Source Weight 274 10/02/2017 2.16.840.1.889760. 4.391.11.51493 Height 79 10/02/2017 2.16.840.1.643369. 4.391.11.72949 Temperature Oral (F) 97.6 F 10/02/2017 2.16.840.1.556157. 4.391.11.19520 Heart Rate 75 10/02/2017 2.16.840.1.476337. 4.391.11.42836 Diastolic (mm Hg) 76 10/02/2017 2.16.840.1.034145. 4.391.11.59687 Systolic (mm Hg) 121 10/02/2017 2.16.840.1.207531. 4.391.11.75537 Weight 123.381 09/18/2017 [facility] BMI Calculated 30.64 09/18/2017 [facility] Height 200.66 cm 09/18/2017 [facility] Weight 271 09/09/2017 2.16.840.1.734900. 4.391.11.91139 Height 79 09/09/2017 2.16.840.1.172560. 4.391.11.34823 Temperature Oral (F) 98.2 F 09/09/2017 2.16.840.1.707407. 4.391.11.34390 Heart Rate 80 09/09/2017 2.16.840.1.114998. 4.391.11.51605 Diastolic (mm Hg) 66 09/09/2017 2.16.840.1.300552. 4.391.11.71393 Systolic (mm Hg) 122 09/09/2017 2.16.840.1.148053. 4.391.11.72139 Weight 271 08/19/2017 2.16.840.1.070224. 4.391.11.24737 Height 79 08/19/2017 2.16.840.1.868006. 4.391.11.22731 Temperature Oral (F) 97.9 F 08/19/2017 2.16.840.1.510380. 4.391.11.17010 Heart Rate 76 08/19/2017 2.16.840.1.437902. 4.391.11.19872 Diastolic (mm Hg) 76 08/19/2017 2.16.840.1.075464. 4.391.11.93309 Systolic (mm Hg) 127 08/19/2017 2.16.840.1.305787. 4.391.11.87432 Weight 271 08/12/2017 2.16.840.1.733928. 4.391.11.69471 Height 79 08/12/2017 2.16.840.1.450351. 4.391.11.37648 Temperature Oral (F) 98.1 F 08/12/2017 2.16.840.1.515471. 4.391.11.46494 Heart Rate 81 08/12/2017 2.16.840.1.680981. 4.391.11.65151 Diastolic (mm Hg) 78 08/12/2017 2.16.840.1.963764. 4.391.11.08766 Systolic (mm Hg) 128 08/12/2017 2.16.840.1.018583. 4.391.11.94107 Weight 271 08/05/2017 2.16.840.1.292950. 4.391.11.98315 Height 79 08/05/2017 2.16.840.1.717314. 4.391.11.06842 Temperature Oral (F) 978 F 08/05/2017 2.16.840.1.256884. 4.391.11.36432 Heart Rate 96 08/05/2017 2.16.840.1.332224. 4.391.11.40322 Diastolic (mm Hg) 71 08/05/2017 2.16.840.1.068346. 4.391.11.87498 Systolic (mm Hg) 119 08/05/2017 2.16.840.1.095706. 4.391.11.27275 Weight 267 07/22/2017 2.16.840.1.761072. 4.391.11.52583 Height 79 07/22/2017 2.16.840.1.437674. 4.391.11.44648 Temperature Oral (F) 98.3 F 07/22/2017 2.16.840.1.609943. 4.391.11.02401 Heart Rate 104 07/22/2017 2.16.840.1.975995. 4.391.11.79202 Diastolic (mm Hg) 63 07/22/2017 2.16.840.1.517564. 4.391.11.73026 Systolic (mm Hg) 104 07/22/2017 2.16.840.1.075253. 4.391.11.61255 Respitory Rate 14 07/05/2017 [facility] Systolic (mm Hg) 131 07/04/2017 [facility] Diastolic (mm Hg) 75 07/04/2017 [facility] Respitory Rate 16 07/04/2017 [facility] Temperature Oral (F) 97.6 F 07/04/2017 [facility] Heart Rate 74 07/04/2017 [facility] Systolic (mm Hg) 136 07/04/2017 [facility] Diastolic (mm Hg) 85 07/04/2017 [facility] Temperature Oral (F) 97.9 F 07/04/2017 [facility] Heart Rate 82 07/04/2017 [facility] Systolic (mm Hg) 107 07/04/2017 [facility] Diastolic (mm Hg) 67 07/04/2017 [facility] Heart Rate 76 07/04/2017 [facility] Temperature Oral (F) 98.5 F 07/04/2017 [facility] Respitory Rate 14 07/04/2017 [facility] Weight 129 06/20/2017 [facility] BMI Calculated 32.04 06/20/2017 [facility] Height 200.66 cm 06/20/2017 [facility] Heart Rate 85 06/20/2017 [facility] Systolic (mm Hg) 111 06/20/2017 [facility] Diastolic (mm Hg) 82 06/20/2017 [facility] Respitory Rate 16 06/20/2017 [facility] Weight 129.545 06/19/2017 [facility] BMI Calculated 32.17 06/19/2017 [facility] Height 200.66 cm 06/19/2017 [facility] Temperature Oral (F) 98.2 F 06/19/2017 [facility] Respitory Rate 18 06/19/2017 [facility] Heart Rate 100 06/19/2017 [facility] Systolic (mm Hg) 125 06/19/2017 [facility] Diastolic (mm Hg) 74 06/19/2017 [facility] Encounters Location Location Encounter Encounter Reason Attending ADM DC Status Source Details Type Number For Provider Date Date Visit [facility] [id number] Poppy 06/19 06/20 [facility] 2 [place] /[address] [facility] Inpatient [id number] Daron Puma 06/20 07/05 [facility] Outpatient [id number] JOSE 07/11 Active [facility] 0 EST [facility] Outpatient [id number] Colby 07/14 07/15 [facility] 8 [place] /2016 [facility] Outpatient [id number] JOSE 08/08 Active [facility] 1 EST [facility] Outpatient [id number] Harita 09/05 09/06 [facility] 3 [place] /2016 [facility] Outpatient [id number] JOSE 09/18 [facility] 2 ESTILL [facility] Outpatient [id number] Daron Puma 09/18 09/19 [facility] Outpatient [id number] JOSE 06/04 [facility] 3 EST [place] Procedures Procedure Code Date Perfomer Comments Source Arthroscopy<sup>1 [id number] [facility] [place] </sup> Laminectomy with [id number] [facility] spinal fusion Arthroscopy<sup>1 [id number] [facility] </sup> Laminectomy with [id number] [facility] spinal fusion Arthroscopy<sup>[id number] [facility] </sup> Laminectomy with [id number] [facility] spinal fusion
--- OUTSIDE RECORDS SUMMARY | 2018-10-15 04:40 | XMS REPORT ---
[...] Status Dosage System Date Date Metformin HCl [facility] 04997662466 500 MG Oral Active TK 1 T PO BID Methocarbamol [facility] 96179518978 500 MG Oral Active TAKE 1 TO 2 TABLETS BY MOUTH EVERY 8 HOURS NEEDED FOR MUSCLE SPASM 5 DAYS Atorvastatin [facility] 57115481102 20 MG Oral Active TK 1 T PO Calcium QD Duexis [facility] 65998159532 800-26.6 MG Active TAKE 1 Oral TABLET BY MOUTH 3 TIMES A DAY FOR 30 DAYS Lisinopril [facility] 87328096391 5 MG Oral Active TK 1 T PO QD Xarelto ND 32299669013 10 MG Oral Active TK 1 T PO Q 24 HOURS FOR 13 DAYS Warfarin Sodium [facility] 43372151136 7.5 MG Oral Active TK 1 T PO NIGHT BEFORE SURGERY Cyclobenzaprine [facility] 86986942815 10 MG Oral Active TK 1 T PO HCl Q 8 H PRN MUSCLE SPASMS Opana ER [facility] 40498393325 10 MG Oral Active (Schedule II Drug) TAKE 1 TABLET BY MOUTH EVERY 12 HOURS FOR PAIN Oxymorphone HCl [facility] 52833803394 5 MG Oral Active (Schedule II Drug) TAKE 1 TABLET BY MOUTH EVERY 6 HOURS NEEDED FOR PAIN Cefazolin in D5W [facility] [address]-85 Active not defined Hydrocodone-Acetam [facility] 78302664044 10-325 MG Oral Active (Schedule inophen II Drug) TAKE 1 TABLET BY MOUTH EVERY 6 HOURS NEEDED FOR PAIN Gabapentin [facility] 58620905823 800 MG Oral Active TAKE 1 TABLET BY MOUTH 3 TIMES A DAY FOR 30 DAYS Meloxicam [facility] 00979029551 7.5 MG Oral Active TK 1 T PO BID Vital Signs Date/Time: Aug 05, 2017 BMI 30.53 Index Weight 271 lbs Height 79 in Temperature 978 F Cardiac Monitoring Heart Rate 96 /min Blood Pressure Diastolic 71 mm Hg Blood Pressure Systolic 119 mm Hg Results No Known Results Summary Purpose eClinicalWorks Submission
--- OUTSIDE RECORDS SUMMARY | 2018-10-15 04:40 | XMS REPORT ---
[...] Status Dosage System Date Date Opana ER [facility] 70668778703 10 MG Oral Active (Schedule II Drug) TAKE 1 TABLET BY MOUTH EVERY 12 HOURS FOR PAIN Metformin HCl [facility] 45912326508 500 MG Oral Active TK 1 T PO BID Methocarbamol [facility] 46500414323 500 MG Oral Active TAKE 1 TO 2 TABLETS BY MOUTH EVERY 8 HOURS NEEDED FOR MUSCLE SPASM 5 DA[address] [facility] 37549352839 800-26.6 MG Active TAKE 1 Oral TABLET BY MOUTH 3 TIMES A DAY FOR 30 DAYS [address]ifampin [facility] 20113276070 300 MG PO twice Active 1 capsule a day (bid) Cefazolin in D5W [facility] [address]-83 Active not defined Lisinopril [facility] 69180983151 5 MG Oral Active TK 1 T PO QD Warfarin Sodium [facility] 04933502998 7.5 MG Oral Active TK 1 T PO NIGHT BEFORE SURGERY Keflex [facility] [address]-06 500 MG Orally Sep 09Sep Active 1 tablet every 6 hrs [address] [facility] 76974444776 10 MG Oral Active TK 1 T PO HCl Q 8 H PRN MUSCLE SPASMS Atorvastatin [place] 48029310043 20 MG Oral Active TK 1 T PO Calcium QD Rifampin ND 73844390491 300 MG PO twice Aug 19, Active 1 capsule a day (bid) [address] [facility] 21048194907 100 MG Orally Active 1 capsule Hyclate every 12 hrs [address] [facility] 87717132080 7.5 MG Oral Active TK 1 T PO BID Xarelto [facility] 77687411910 10 MG Oral Active TK 1 T PO Q 24 HOURS FOR 13 DAYS Hydrocodone-Acetam [facility] 18016092038 10-325 MG Oral Active (Schedule inophen II Drug) TAKE 1 TABLET BY MOUTH EVERY 6 HOURS NEEDED FOR PAIN Gabapentin [facility] 60235369931 800 MG Oral Active TAKE 1 TABLET BY MOUTH 3 TIMES A DAY FOR 30 DAYS Oxymorphone HCl [facility] 26302538309 5 MG Oral Active (Schedule II Drug) [...]
--- OUTSIDE RECORDS SUMMARY | 2018-10-15 04:41 | XMS REPORT ---
[...] Status Dosage System Date Date Opana ER [facility] 44835116682 10 MG Oral Active (Schedule II Drug) TAKE 1 TABLET BY MOUTH EVERY 12 HOURS FOR PAIN Cefazolin in D5W [facility] [address]-47 Active not defined Meloxicam [facility] 27300697985 7.5 MG Oral Active TK 1 T PO BID Lisinopril [facility] 78413490527 5 MG Oral Active TK 1 T PO QD Cyclobenzaprine [facility] 60875104263 10 MG Oral Active TK 1 T PO HCl Q 8 H PRN MUSCLE SPASMS Gabapentin [facility] 79150119086 800 MG Oral Active TAKE 1 TABLET BY MOUTH 3 TIMES A DAY FOR 30 DAYS Hydrocodone-Acetam [facility] 68537751785 10-325 MG Oral Active (Schedule inophen II Drug) TAKE 1 TABLET BY MOUTH EVERY 6 HOURS NEEDED FOR PAIN Xarelto [facility] 21488559019 10 MG Oral Active TK 1 T PO Q 24 HOURS FOR 13 DAYS Methocarbamol [facility] 16635290175 500 MG Oral Active TAKE 1 TO 2 TABLETS BY MOUTH EVERY 8 HOURS NEEDED FOR MUSCLE SPASM 5 DAYS Duexis [facility] 06668719552 800-26.6 MG Active TAKE 1 Oral TABLET BY MOUTH 3 TIMES A DAY FOR 30 DAYS Metformin HCl [facility] 47781850563 500 MG Oral Active TK 1 T PO BID Atorvastatin [facility] 50577978114 20 MG Oral Active TK 1 T PO Calcium QD Oxymorphone HCl [facility] 19577843376 5 MG Oral Active (Schedule II Drug) TAKE 1 TABLET BY MOUTH EVERY 6 HOURS NEEDED FOR PAIN Warfarin Sodium [facility] 58186157355 7.5 MG Oral Active TK 1 T PO NIGHT BEFORE SURGERY Vital Signs Date/Time: Jul 22, 2017 BMI 30.08 Index Weight 267 lbs Height 79 in Temperature 98.3 F Cardiac Monitoring Heart Rate 104 /min Blood Pressure Diastolic 63 mm Hg Blood Pressure Systolic 104 mm Hg Results No Known Results Summary Purpose eClinicalWorks Submission
--- OUTSIDE RECORDS SUMMARY | 2018-10-15 04:41 | XMS REPORT ---
[...] Dosage System Date Date Cefazolin in D5W [facility] [address]-46 Active not defined Rifampin [facility] 62274136619 300 MG PO twice Active 1 capsule a day (bid) Oxymorphone HCl [facility] 42854359667 5 MG Oral Active (Schedule II Drug) TAKE 1 TABLET BY MOUTH EVERY 6 HOURS NEEDED FOR PAIN Gabapentin [facility] 46522942945 800 MG Oral Active TAKE 1 TABLET BY MOUTH 3 TIMES A DAY FOR 30 DAYS Atorvastatin [facility] 87353478417 20 MG Oral Active TK 1 T PO Calcium QD Warfarin Sodium [facility] 22857011666 7.5 MG Oral Active TK 1 T PO NIGHT BEFORE SURGERY Duexis [facility] 01686938461 800-26.6 MG Active TAKE 1 Oral TABLET BY MOUTH 3 TIMES A DAY FOR 30 DAYS Meloxicam [facility] 63098643288 7.5 MG Oral Active TK 1 T PO BID Cyclobenzaprine [facility] 00212482752 10 MG Oral Active TK 1 T PO HCl Q 8 H PRN MUSCLE SPASMS Opana ER [facility] 58062565164 10 MG Oral Active (Schedule II Drug) TAKE 1 TABLET BY MOUTH EVERY 12 HOURS FOR PAIN Doxycycline [facility] 60985957820 100 MG Orally Active 1 capsule Hyclate every 12 hrs Xarelto [facility] 04743528392 10 MG Oral Active TK 1 T PO Q 24 HOURS FOR 13 DAYS Hydrocodone-Acetam [facility] 35983123678 10-325 MG Oral Active (Schedule inophen II Drug) TAKE 1 TABLET BY MOUTH EVERY 6 HOURS NEEDED FOR PAIN Methocarbamol [facility] 46917115321 500 MG Oral Active TAKE 1 TO 2 TABLETS BY MOUTH EVERY 8 HOURS NEEDED FOR MUSCLE SPASM 5 DAYS Lisinopril [facility] 29462104569 5 MG Oral Active TK 1 T PO QD Keflex [facility] [address]-68 500 MG Orally Active 1 tablet every 6 hrs Metformin HCl [facility] 15399738998 500 MG Oral Active TK 1 T PO BID Vital Signs Date/Time: Oct 02, 2017 BMI 30.86 Index Weight 274 lbs Height 79 in Temperature 97.6 F Cardiac Monitoring Heart Rate 75 /min Blood Pressure Diastolic 76 mm Hg Blood Pressure Systolic 121 mm Hg Results No Known Results Summary Purpose eClinicalWorks Submission
--- OUTSIDE RECORDS SUMMARY | 2018-10-15 04:41 | XMS REPORT ---
[...] End Status Dosage System Date Date Gabapentin [facility] 88094106679 800 MG Oral Active TAKE 1 TABLET BY MOUTH 3 TIMES A DAY FOR 30 DAYS Methocarbamol [facility] 21210462796 500 MG Oral Active TAKE 1 TO 2 TABLETS BY MOUTH EVERY 8 HOURS NEEDED FOR MUSCLE SPASM 5 DAYS Opana ER [facility] 88770022358 10 MG Oral Active (Schedule II Drug) TAKE 1 TABLET BY MOUTH EVERY 12 HOURS FOR PAIN Duexis [facility] 93905223144 800-26.6 MG Active TAKE 1 Oral TABLET BY MOUTH 3 TIMES A DAY FOR 30 DAYS Hydrocodone-Acetam [facility] 48364914256 10-325 MG Oral Active (Schedule inophen II Drug) TAKE 1 TABLET BY MOUTH EVERY 6 HOURS NEEDED FOR PAIN Xarelto [facility] 41388391974 10 MG Oral Active TK 1 T PO Q 24 HOURS FOR 13 DAYS Cefazolin in D5W [facility] [address]-20 Active not defined Meloxicam [facility] 67714538967 7.5 MG Oral Active TK 1 T PO BID Oxymorphone HCl [facility] 34625031527 5 MG Oral Active (Schedule II Drug) TAKE 1 TABLET BY MOUTH EVERY 6 HOURS NEEDED FOR PAIN Cyclobenzaprine [facility] 51429133321 10 MG Oral Active TK 1 T PO HCl Q 8 H PRN MUSCLE SPASMS Warfarin Sodium [facility] 48557123562 7.5 MG Oral Active TK 1 T PO NIGHT BEFORE SURGERY Lisinopril [facility] 98223535505 5 MG Oral Active TK 1 T PO QD Metformin HCl [facility] 01554161943 500 MG Oral Active TK 1 T PO BID Atorvastatin [facility] 75089577981 20 MG Oral Active TK 1 T PO Calcium QD Vital Signs Date/Time: Aug 12, 2017 BMI 30.53 Index Weight 271 lbs Height 79 in Temperature 98.1 F Cardiac Monitoring Heart Rate 81 /min Blood Pressure Diastolic 78 mm Hg Blood Pressure Systolic 128 mm Hg Results No Known Results Summary Purpose eClinicalWorks Submission
--- OUTSIDE RECORDS SUMMARY | 2018-10-15 04:41 | XMS REPORT ---
[...] Dosage System Date Date Cefazolin in D5W [facility] [address]-07 Active not defined Duexis [facility] 78611761272 800-26.6 MG Active TAKE 1 Oral TABLET BY MOUTH 3 TIMES A DAY FOR 30 DAYS Opana ER [facility] 97976254527 10 MG Oral Active (Schedule II Drug) TAKE 1 TABLET BY MOUTH EVERY 12 HOURS FOR PAIN Gabapentin [facility] 48814831612 800 MG Oral Active TAKE 1 TABLET BY MOUTH 3 TIMES A DAY FOR 30 DAYS Cyclobenzaprine [facility] 58409866432 10 MG Oral Active TK 1 T PO HCl Q 8 H PRN MUSCLE SPASMS Methocarbamol [facility] 39035253338 500 MG Oral Active TAKE 1 TO 2 TABLETS BY MOUTH EVERY 8 HOURS NEEDED FOR MUSCLE SPASM 5 DAYS Oxymorphone HCl [facility] 21143338848 5 MG Oral Active (Schedule II Drug) TAKE 1 TABLET BY MOUTH EVERY 6 HOURS NEEDED FOR PAIN Hydrocodone-Acetam [facility] 24293768765 10-325 MG Oral Active (Schedule inophen II Drug) TAKE 1 TABLET BY MOUTH EVERY 6 HOURS NEEDED FOR PAIN Rifampin [facility] [address]-91 300 MG PO twice Aug 19, Active 1 capsule a day (bid) 2016 Doxycycline [facility] [address]-17 100 MG Orally Aug 19Sep Active 1 capsule Hyclate every 12 hrs 2016 Meloxicam [facility] 41043336228 7.5 MG Oral Active TK 1 T PO BID Metformin HCl [facility] 93290368794 500 MG Oral Active TK 1 T PO BID Atorvastatin [facility] 06756911413 20 MG Oral Active TK 1 T PO Calcium QD Xarelto [facility] 95626144834 10 MG Oral Active TK 1 T PO Q 24 HOURS FOR 13 DAYS Warfarin Sodium [facility] 46801825606 7.5 MG Oral Active TK 1 T PO NIGHT BEFORE SURGERY Lisinopril [facility] 91379955536 5 MG Oral Active TK 1 T PO QD Vital Signs Date/Time: Aug 19, 2017 BMI 30.53 Index Weight 271 lbs Height 79 in Temperature 97.9 F Cardiac Monitoring Heart Rate 76 /min Blood Pressure Diastolic 76 mm Hg Blood Pressure Systolic 127 mm Hg Results No Known Results Summary Purpose eClinicalWorks Submission
--- NOTE | 2018-10-15 04:58 | ER ---
Nurse's Notes [facility] Name: Rica Ribeiro Jr Age: 57 yrs Sex: Male : 1960 Arrival Date: 10/15/2018 Time: 04:36 Bed 19 Private MD: Diagnosis: Chest pain, unspecified;Essential (primary) hypertension Presentation: 10/15 04:44 Presenting complaint: Patient states: chest pressure started yesterday afternoon pain rr5 score of 6/10. felt having cold sweats, no cough, no nausea and vomiting, no fever noted. Transition of care: patient was not received from another setting of care. Onset of symptoms was October 14, 2018. Risk Assessment: Do you want to hurt yourself or someone else?. Initial Sepsis Screen: Does the patient meet any 2 criteria? No. Patient's initial sepsis screen is negative. Does the patient have a suspected source of infection? No. Patient's initial sepsis screen is negative. Care prior to arrival: None. 04:44 Method Of Arrival: Wheelchair rr5 04:44 Acuity: ALTAF 3 rr5 Historical: - Allergies: 04:52 NKA; rr5 - Home Meds: 04:52 sulfamethoxazole-trimethoprim 800-160 mg Oral tab [Active]; methocarbamol 500 mg Oral rr5 tab [Active]; gabapentin 800 mg Oral tab 1 tab 3 times per day [Active]; hydrocodone-acetaminophen 10-325 mg Oral tab 1 tab every 6 hours [Active]; meloxicam oral oral [Active]; - PMHx: 04:52 neuropathy; staph infection; rr5 - PSHx: 04:52 Knee surgery; back surgery; thoracic surgery; rr5 - Immunization history:: Adult Immunizations not up to date, Flu vaccine is not up to date. - Social history:: Smoking status: Patient/guardian denies using tobacco, Patient/guardian denies using alcohol, street drugs. - Family history:: not pertinent. - Ebola Screening: : Patient negative for fever greater than or equal to 101.5 degrees Fahrenheit, and additional compatible Ebola Virus Disease symptoms Patient denies exposure to infectious person Patient denies travel to an Ebola-affected area in the 21 days before illness onset. Screenin:47 Abuse screen: Denies threats or abuse. Nutritional screening: No deficits noted. jd3 Tuberculosis screening: No symptoms or risk factors identified. Fall Risk Ambulatory Aid- None/Bed Rest/Nurse Assist (0 pts). Gait- Normal/Bed Rest/Wheelchair (0 pts) Mental Status- Oriented to own ability (0 pts). Total Kitchen Fall Scale indicates No Risk (0-24 pts). Assessment: 04:44 General: Appears in no apparent distress. uncomfortable, Behavior is cooperative, jd3 appropriate for age, anxious. Pain: Complains of pain in chest Pain does not radiate. Quality of pain is described as pressure, Pain began suddenly. Neuro: Level of Consciousness is awake, alert, obeys commands, Oriented to person, place, time, situation. Cardiovascular: Heart tones S1 S2 present Capillary refill < 3 seconds Patient's skin is warm and dry. Rhythm is regular. Respiratory: Reports shortness of breath Airway is patent Respiratory effort is even, unlabored, Respiratory pattern is regular, symmetrical, Breath sounds are clear bilaterally. GI: Abdomen is round non-distended, Patient currently denies nausea, vomiting. : No signs and/or symptoms were reported regarding the genitourinary system. EENT: No signs and/or symptoms were reported regarding the EENT system. Derm: Skin is intact, Skin is dry, Skin is normal, Skin temperature is warm. Musculoskeletal: Circulation, motion, and sensation intact. Range of motion: intact in all extremities. 05:45 Reassessment: Patient appears in no apparent distress at this time. Patient and/or jd3 family updated on plan of care and expected duration. Pain level reassessed. Patient is alert, oriented x 3, equal unlabored respirations, skin warm/dry/pink. 06:45 Reassessment: Patient appears in no apparent distress at this time. Patient and/or jd3 family updated on plan of care and expected duration. Pain level reassessed. Patient is alert, oriented x 3, equal unlabored respirations, skin warm/dry/pink. 07:38 Reassessment: Patient appears in no apparent distress at this time. Patient and/or em family updated on plan of care and expected duration. Pain level reassessed. Patient is alert, oriented x 3, equal unlabored respirations, skin warm/dry/pink. rates pain 4/10 in chest. 08:10 Reassessment: Patient appears in no apparent distress at this time. attempted to call em report to 2nd floor, nurse currently unavailable. Vital Signs: 04:48 BP 148 / 100; Pulse 70; Resp 20; Temp 98.3; Pulse Ox 100% ; Weight 129.27 kg; Height 6 rr5 ft. 7 in. (200.66 cm); Pain 6/10; 05:45 BP 153 / 87; Pulse 78; Resp 19 S; Pulse Ox 100% on R/A; jd3 07:30 BP 108 / 77; Pulse 51; Resp 18; Temp 97.8(O); Pulse Ox 99% on R/A; Pain 4/10; em 04:48 Body Mass Index 32.11 (129.27 kg, 200.66 cm) rr5 ED Course: 04:36 Patient arrived in ED. ag3 04:38 Rasheed Newby, SAMEERA is Primary Nurse. jd3 04:39 Jeff Cruz MD is Attending Physician. maría 04:47 Patient has correct armband on for positive identification. Placed in gown. Bed in low jd3 position. Call light in reach. Side rails up X 1. Adult w/ patient. potline monitor on. Pulse ox on. NIBP on. 04:47 Patient maintains SpO2 saturation greater than 95% on room air. jd3 04:48 Triage completed. rr5 04:48 Arm band placed on. jd3 04:55 Initial lab(s) drawn, by me, sent to lab. First set of blood cultures drawn EKG done, mt by ED staff, reviewed by Jeff Cruz MD. 04:55 Missed attempt(s): 20 gauge in right antecubital area. Bleeding controlled, band aid jd3 applied, catheter tip intact. 04:56 Antionette Lima MD is Hospitalizing Provider. maría 04:59 Inserted saline lock: 20 gauge in right forearm, using aseptic technique. Blood jd3 collected. 05:05 X-ray completed. Portable x-ray completed in exam room. Patient tolerated procedure kw well. 05:06 XRAY Chest (1 view) In Process Unspecified. EDMS 06:21 CT Chest For PE Angio In Process Unspecified. EDMS 07:10 Report given to Gina TAVARES. jd3 07:18 US Extremity Venous W Compression Josh In Process Unspecified. EDMS 09:11 No provider procedures requiring assistance completed. Patient admitted, IV remains in em place. Administered Medications: 05:17 Drug: Pepcid 20 mg Route: IVP; Site: right forearm; jd3 07:07 Follow up: Response: No adverse reaction jd3 05:17 Drug: Lovenox 1 mg/kg Route: Sub-Q; Site: abdomen; jd3 07:08 Follow up: Response: No adverse reaction jd3 05:17 Drug: Zofran 4 mg Route: IVP; Site: right forearm; jd3 07:08 Follow up: Response: No adverse reaction jd3 05:18 Drug: Aspirin Chewable Tablet 162 mg Route: PO; jd3 07:07 Follow up: Response: No adverse reaction jd3 05:18 Drug: NS 0.9% 1000 ml Route: IV; Rate: 125 ml/hr; Site: right forearm; jd3 07:08 Follow up: Response: No adverse reaction; IV Status: Infusion continued upon admission jd3 06:45 Not Given (Patient Refused): morphine 2 mg IVP once jd3 Outcome: 04:57 Decision to Hospitalize by Provider. maría 09:11 Admitted to Tele accompanied by tech, via wheelchair, room 230, with chart, Report em called to SAMEERA You 09:11 Condition: good 09:11 Instructed on the need for admit, Demonstrated understanding of instructions. 09:13 Patient left the ED. em Signatures: Dispatcher [employer] Jeff Haines MD MD cha Munoz, Edgar, MEDICAL OBSERVER MEDICAL OBSERVER Mishel Barkley Moriah mt Davies, Jonathon, RN RN jd3 Samra Bergeron Raymond RN RN rr5
--- NOTE | 2018-10-15 04:58 | EDPHYS ---
Physician Documentation [facility] Name: Rica Ribeiro Jr Age: 57 yrs Sex: Male : 1960 Arrival Date: 10/15/2018 Time: 04:36 Bed 19 Private MD: ED Physician Jeff Cruz HPI: 10/15 04:51 This 57 yrs old Black Male presents to ER via Wheelchair with complaints of Chest maría Pressure. 04:51 The patient or guardian reports chest pain that is located primarily in the substernal maría area. Onset: 1 day(s) ago. The pain does not radiate. Associated signs and symptoms: Pertinent positives: cough, shortness of breath. The chest pain is described as a pressure. Duration: The patient or guardian reports multiple episodes, that wax and wane. Modifying factors: The symptoms are alleviated by remaining still, the symptoms are aggravated by breathing, cough, deep breath. Severity of pain: At its worst the pain was mild moderate in the emergency department the pain has improved moderately. Historical: - Allergies: 04:52 NKA; rr5 - Home Meds: 04:52 sulfamethoxazole-trimethoprim 800-160 mg Oral tab [Active]; methocarbamol 500 mg Oral rr5 tab [Active]; gabapentin 800 mg Oral tab 1 tab 3 times per day [Active]; hydrocodone-acetaminophen 10-325 mg Oral tab 1 tab every 6 hours [Active]; meloxicam oral oral [Active]; - PMHx: 04:52 neuropathy; staph infection; rr5 - PSHx: 04:52 Knee surgery; back surgery; thoracic surgery; rr5 - Immunization history:: Adult Immunizations not up to date, Flu vaccine is not up to date. - Social history:: Smoking status: Patient/guardian denies using tobacco, Patient/guardian denies using alcohol, street drugs. - Family history:: not pertinent. - Ebola Screening: : Patient negative for fever greater than or equal to 101.5 degrees Fahrenheit, and additional compatible Ebola Virus Disease symptoms Patient denies exposure to infectious person Patient denies travel to an Ebola-affected area in the 21 days before illness onset. ROS: 04:51 Constitutional: Negative for fever, chills, and weight loss, Eyes: Negative for injury, maría pain, redness, and discharge, ENT: Negative for injury, pain, and discharge, Neck: Negative for injury, pain, and swelling, Abdomen/GI: Negative for abdominal pain, nausea, vomiting, diarrhea, and constipation, Back: Negative for injury and pain, : Negative for injury, bleeding, discharge, and swelling, MS/Extremity: Negative for injury and deformity, Skin: Negative for injury, rash, and discoloration, Neuro: Negative for headache, weakness, numbness, tingling, and seizure, Psych: Negative for depression, anxiety, suicide ideation, homicidal ideation, and hallucinations, Allergy/Immunology: Negative for hives, rash, and allergies, Endocrine: Negative for neck swelling, polydipsia, polyuria, polyphagia, and marked weight changes, Hematologic/Lymphatic: Negative for swollen nodes, abnormal bleeding, and unusual bruising. 04:51 Cardiovascular: Positive for chest pain. 04:51 Respiratory: Positive for cough, shortness of breath, at rest. Exam: 04:51 Constitutional: This is a well developed, well nourished patient who is awake, alert, maría and in no acute distress. Head/Face: Normocephalic, atraumatic. Eyes: Pupils equal round and reactive to light, extra-ocular motions intact. Lids and lashes normal. Conjunctiva and sclera are non-icteric and not injected. Cornea within normal limits. Periorbital areas with no swelling, redness, or edema. ENT: Nares patent. No nasal discharge, no septal abnormalities noted. Tympanic membranes are normal and external auditory canals are clear. Oropharynx with no redness, swelling, or masses, exudates, or evidence of obstruction, uvula midline. Mucous membranes moist. Neck: Trachea midline, no thyromegaly or masses palpated, and no cervical lymphadenopathy. Supple, full range of motion without nuchal rigidity, or vertebral point tenderness. No Meningismus. Chest/axilla: Normal chest wall appearance and motion. Nontender with no deformity. No lesions are appreciated. Cardiovascular: Regular rate and rhythm with a normal S1 and S2. No gallops, murmurs, or rubs. Normal PMI, no JVD. No pulse deficits. Respiratory: Lungs have equal breath sounds bilaterally, clear to auscultation and percussion. No rales, rhonchi or wheezes noted. No increased work of breathing, no retractions or nasal flaring. Abdomen/GI: Soft, non-tender, with normal bowel sounds. No distension or tympany. No guarding or rebound. No evidence of tenderness throughout. Back: No spinal tenderness. No costovertebral tenderness. Full range of motion. Male : Normal genitalia with no discharge or lesions. Skin: Warm, dry with normal turgor. Normal color with no rashes, no lesions, and no evidence of cellulitis. Neuro: Awake and alert, GCS 15, oriented to person, place, time, and situation. Cranial nerves II-XII grossly intact. Motor strength 5/5 in all extremities. Sensory grossly intact. Cerebellar exam normal. Normal gait. Psych: Awake, alert, with orientation to person, place and time. Behavior, mood, and affect are within normal limits. 04:51 Musculoskeletal/extremity: Extremities: noted in the left leg: pain, swelling, ROM: full active range of motion, full passive range of motion, Circulation is intact in all extremities. Sensation intact. Compartment Syndrome exam of affected extremity: is normal. Joints: All joints are normal except the left knee displays effusion, swelling, tenderness, DVT Exam: no tenderness, negative Homans' sign noted on exam, no appreciated bluish discoloration, no erythema, no increased warmth, pain, swelling. Vital Signs: 04:48 BP 148 / 100; Pulse 70; Resp 20; Temp 98.3; Pulse Ox 100% ; Weight 129.27 kg; Height 6 rr5 ft. 7 in. (200.66 cm); Pain 6/10; 05:45 BP 153 / 87; Pulse 78; Resp 19 S; Pulse Ox 100% on R/A; jd3 07:30 BP 108 / 77; Pulse 51; Resp 18; Temp 97.8(O); Pulse Ox 99% on R/A; Pain 4/10; em 04:48 Body Mass Index 32.11 (129.27 kg, 200.66 cm) rr5 MDM: 04:44 Patient medically screened. [facility] 04:54 Data reviewed: vital signs, nurses notes, lab test result(s), EKG, radiologic studies, [facility] CT scan, plain films. 10/15 04:40 Order name: Basic Metabolic Panel [facility] 10/15 04:40 Order name: CBC with Diff; Complete Time: 06:07 [facility] 10/15 04:40 Order name: LFT's; Complete Time: 06:07 [facility] 10/15 04:40 Order name: Magnesium; Complete Time: 06:07 [facility] 10/15 04:40 Order name: NT PRO-BNP; Complete Time: 06:07 [facility] 10/15 04:40 Order name: PT-INR; Complete Time: 06:07 [facility] 10/15 04:40 Order name: Troponin (emerg Dept Use Only); Complete Time: 06:07 [facility] 10/15 04:40 Order name: XRAY Chest (1 view) [facility] 10/15 04:40 Order name: Lipase; Complete Time: 06:07 [facility] 10/15 04:41 Order name: Basic Metabolic Panel; Complete Time: 06:07 EDMS 10/15 04:51 Order name: US Extremity Venous W Compression Josh [facility] 10/15 04:51 Order name: CT Chest For PE Angio [facility] 10/15 04:40 Order name: EKG; Complete Time: 04:41 [facility] 10/15 04:40 Order name: Cardiac monitoring; Complete Time: 04:59 [facility] 10/15 04:40 Order name: EKG - Nurse/Tech; Complete Time: 04:58 [facility] 10/15 04:40 Order name: IV Saline Lock; Complete Time: 04:59 [facility] 10/15 04:40 Order name: Labs collected and sent; Complete Time: 04:59 [facility] 10/15 04:40 Order name: O2 Per Protocol; Complete Time: 04:59 [facility] 10/15 04:40 Order name: O2 Sat Monitoring; Complete Time: 04:59 [facility] Administered Medications: 05:17 Drug: Pepcid 20 mg Route: IVP; Site: right forearm; jd3 07:07 Follow up: Response: No adverse reaction jd3 05:17 Drug: Lovenox 1 mg/kg Route: Sub-Q; Site: abdomen; jd3 07:08 Follow up: Response: No adverse reaction jd3 05:17 Drug: Zofran 4 mg Route: IVP; Site: right forearm; jd3 07:08 Follow up: Response: No adverse reaction jd3 05:18 Drug: Aspirin Chewable Tablet 162 mg Route: PO; jd3 07:07 Follow up: Response: No adverse reaction jd3 05:18 Drug: NS 0.9% 1000 ml Route: IV; Rate: 125 ml/hr; Site: right forearm; jd3 07:08 Follow up: Response: No adverse reaction; IV Status: Infusion continued upon admission jd3 06:45 Not Given (Patient Refused): morphine 2 mg IVP once jd3 Disposition: 10/15/18 04:57 Hospitalization ordered by Antionette Lima for Observation. Preliminary diagnosis are Chest pain, unspecified, Essential (primary) hypertension. - Bed requested for Telemetry/MedSurg (observation). - Status is Observation. em - Condition is Stable. - Problem is new. - Symptoms have improved. UTI on Admission? No Signatures: Dispatcher [employer] EDMilagros Johnson Corey, MD MD cha Munoz, Edgar, MEALS ON WHEELS DRIVER MEALS ON WHEELS DRIVER Rasheed Woodard, RN RN jd3 Jefferson Spencer RN RN rr5 Corrections: (The following items were deleted from the chart) 07:48 04:57 Hospitalization Ordered by Antionette Lima MD for Observation. Preliminary bd diagnosis is Chest pain, unspecified; Essential (primary) hypertension. Bed requested for Telemetry/MedSurg (observation). Status is Observation. Condition is Stable. Problem is new. Symptoms have improved. UTI on Admission? No. maría 09:13 07:48 10/15/2018 04:57 Hospitalization Ordered by Antionette Lima MD for Observation. em Preliminary diagnosis is Chest pain, unspecified; Essential (primary) hypertension. Bed requested for Telemetry/MedSurg (observation). Status is Observation. Condition is Stable. Problem is new. Symptoms have improved. UTI on Admission? No. bd
[2018-10-15 05:07] LABS: Absolute Lymphocytes (CBC) 1.5 K/uL (0.7-4.9); Absolute Monocytes 0.3 K/uL (0.1-1.3); Absolute Neutrophil 1.5 K/uL (1.8-8.0); Basophils % 0.7 % (0-1.3); Eosinophils % 3.7 % (0-4.4); Hematocrit 38.8 % (39.6-49.0); Lymphocytes % 44.1 % (15.3-44.8); MPV 7.9 fL (7.6-11.3); Monocytes % 7.9 % (3.3-12.3); RBC Red Blood Cell Count 4.79 M/uL (4.33-5.43)
[2018-10-15 05:10] LABS: Protime INR 1.07
[2018-10-15] MEDS ORDERED: MORPHINE 4 MG/ML SYR ONE (05:13)
[2018-10-15] MEDS ORDERED: ONDANSETRON 4 MG/2 ML VIAL ONE (05:13)
[2018-10-15] MEDS ORDERED: ASPIRIN 81 MG CHEWABLE TABLET ONE (05:13)
[2018-10-15] MEDS ORDERED: ENOXAPARIN 100 MG/ML SYR SQ ONE (05:14)
[2018-10-15] MEDS ORDERED: FAMOTIDINE 20 MG/2 ML VIAL IV ONE (05:15)
[2018-10-15] MEDS ORDERED: NA CHLORIDE 0.9% 1,000 ML ONE (05:15)
[2018-10-15] MEDS ORDERED: ENOXAPARIN 30 MG/0.3 ML SQ ONE (05:15)
[2018-10-15 05:29] LABS: ALT/SGPT 32 U/L (12-78); AST/SGOT 38 U/L (15-37); Albumin 3.7 g/dL (3.4-5.0); Alkaline Phosphatase 115 U/L (45-117); BUN Blood Urea Nitrogen 13 mg/dL (7-18); Bicarbonate 26 mmol/L (21-32); Bilirubin Direct < 0.1 mg/dL (0-0.2); Bilirubin Total 0.2 mg/dL (0.2-1.0); Glucose Level 134 mg/dL (74-106); Lipase 47 U/L (73-393); Magnesium 2.4 mg/dL (1.8-2.4); NT PRO-BNP 25 pg/mL (<125); Potassium 4.2 mmol/L (3.5-5.1); Protein, Total 7.4 g/dL (6.4-8.2); Sodium Level 139 mmol/L (136-145); Troponin (Emerg Dept Use Only) < 0.02 ng/mL (0.0-0.045)
--- NOTE | 2018-10-15 06:24 | EKG ---
Test Date: 2018-10-15 Test Time: 04:40:37 Process Designer: ANAI MEASUREMENT RESULTS: Intervals: Rate: 56 FL: 156 QRSD: 102 QT: 408 QTc: 393 Berger: P: 74 FL: 156 QRS: -41 T: 41 INTERPRETIVE STATEMENTS: Sinus bradycardia Left axis deviation Abnormal ECG Compared to ECG 02/06/2017 00:31:11 Sinus rhythm no longer present Electronically Signed On 10-15-18 06:23:37 FEATHER BALER by Nathan Larson
--- NOTE | 2018-10-15 07:39 | P.HP ---
Certification for Inpatient Patient admitted to: Observation With expected LOS: <2 Midnights Practitioner: I am a practitioner with admitting privileges, knowledge of patient current condition, hospital course, and medical plan of care. Services: Services provided to patient in accordance with Admission requirements found in Title 42 Section 412.3 of the Code of Federal Regulations Patient History Date of Service: 10/15/18 Reason for admission: chest pain History of Present Illness: Mr Ribeiro is a 57 years old male with history of chronic pain syndrome, neuropathy, recurrent staph infection, recently had a left knee revision from previous knee surgery, he is still on oral Bactrim, who came to ED complaining of chest pain. The pain is located substernally, no radiation, 6/10 of intensity , dull, worsening with breathing movements. He denied SOB, diaphoresis, or nausea episodes associated with. Initial troponin I is negative, EKG shows SR without ST-T abnormalities. Allergies No Known Drug Allergies Allergy (Unverified 11/12/14 22:19) Unknown N Allergy (Uncoded 06/15/17 23:59) Unknown No Known Allergy (Uncoded 06/12/17 09:10) Unknown No Known Allerg Allergy (Uncoded 02/06/17 01:49) Unknown - Past Medical/Surgical History -: chronic pain syndrome -: neuropathy -: staph infection -: knee surgery - Family History Family History: Reviewed- Non-Contributory - Social History Smoking Status: Former smoker Alcohol use: No CD- Drugs: No Place of Residence: Home Review of Systems 10-point ROS is otherwise unremarkable Physical Examination - Physical Exam General: Alert, In no apparent distress HEENT: Atraumatic, PERRLA, Mucous membr. moist/pink, EOMI, Sclerae nonicteric Neck: Supple, 2+ carotid pulse no bruit, No LAD, Without JVD or thyroid abnormality Respiratory: Clear to auscultation bilaterally, Normal air movement Cardiovascular: Regular rate/rhythm, Normal S1 S2 Gastrointestinal: Normal bowel sounds, No tenderness Musculoskeletal: No tenderness Integumentary: No rashes Neurological: Normal speech, Normal strength at 5/5 x4 extr, Normal tone, Normal affect Lymphatics: No axilla or inguinal lymphadenopathy - Studies Laboratory Data (last 24 hrs) 10/15/18 04:59: PT 12.6 H, INR 1.07 10/15/18 04:59: WBC 3.5 L, Hgb 13.0 L, Hct 38.8 L, Plt Count 220 10/15/18 04:59: Sodium 139, Potassium 4.2, BUN 13, Creatinine 1.10, Glucose 134 H, Magnesium 2.4, Total Bilirubin 0.2, AST 38 H, ALT 32, Alkaline Phosphatase 115, Lipase 47 L Assessment and Plan - Problems (Diagnosis) (1) Chest pain Current Visit: Yes Status: Acute Qualifiers: Chest pain type: chest pain on breathing Qualified Code(s): R07.1 - Chest pain on breathing; R07.81 - Pleurodynia (2) Chronic pain syndrome Current Visit: Yes Status: Acute - Plan Will admit the patient to the hospital due to chest pain, in order to R/O ACS. So far negative EKG and cardiac enzymes. Continue serial monitor. Will order ECHO and cardiology consult. - Advance Directives Does patient have a Living Will: No Does patient have a Durable POA for Healthcare: No - Code Status/Comfort Care Code Status Assessed: Yes Code Status: Full Code
--- NOTE | 2018-10-15 09:35 | RAD REPORT ---
EXAM DESCRIPTION: USExtrem Venous W Compress Bil10/15/2018 7:19 am CLINICAL HISTORY: Legs pain COMPARISON: 2017 FINDINGS: Echogenic material consistent with thrombus is present within the right superficial femora l, right popliteal and right posterior tibial veins. Partial compression of the right superficial fem oral and popliteal veins. Non compression of the right posterior tibial vein. The left common femoral, superficial femoral, popliteal and posterior tibial veinsare compressible an d demonstrate augmentation. IMPRESSION: Acute right lower extremity deep venous thrombosis
--- NOTE | 2018-10-15 09:37 | RAD REPORT ---
EXAM DESCRIPTION: CT - Chest For Pe Angio - 10/15/2018 6:20 am CLINICAL HISTORY: Chest pain COMPARISON: None. TECHNIQUE: Dynamically enhanced axial 3 mm thick images of the chest were obtained during administra tion of <80mL Isovue 370 IV contrast. Coronal and oblique reconstruction images were generated and re viewed. Exam utilizes a protocol for optimal evaluation of pulmonary arterial tree. Maximum intensity projections 3D imaging was utilized All CT scans are performed using dose optimization technique as appropriate and may include automated exposure control or mA/KV adjustment according to patient size. FINDINGS: A pulmonary embolus is not seen. A thoracic aortic aneurysm is not noted. A pleural effusion is not seen. A pericardial effusion is not seen. A lung consolidation is not present. Mild thyromegaly IMPRESSION: Negative for a pulmonary embolism.
--- NOTE | 2018-10-15 09:40 | RAD REPORT ---
EXAM DESCRIPTION: Venkat Single View10/15/2018 5:06 am CLINICAL HISTORY: Chest pain COMPARISON: 2017 FINDINGS: The lungs appear clear of acute infiltrate. The heart is normal size IMPRESSION: No acute abnormalities displayed
[2018-10-15] MEDS ORDERED: ACETAMINOPHEN 500 MG TAB PO PRN (10:00)
[2018-10-15] MEDS ORDERED: ONDANSETRON 4 MG/2 ML VIAL IV PRN (10:00)
[2018-10-15 10:43] VITALS: BMI 32.1
[2018-10-15 10:52] LABS: HDL Cholesterol 38 mg/dL (40-60); LDL Cholesterol, Calculated 119 (<130); Troponin I < 0.02 ng/mL (0.0-0.045)
--- NOTE | 2018-10-15 15:44 | ECHO ---
HEIGHT: 6 ft 7 in WEIGHT: 285 lb 0 oz DATE OF STUDY: 10/15/[address]: Antionette Silver MD 2-DIMENSIONAL: YES M.MODE: YES DOPPLER: YES COLOR FLOW: YES TDS: NO PORTABLE: NO DEFINITY: NO BUBBLE STUDY: NO DIAGNOSIS: CHEST PAIN CARDIAC HISTORY: CATHERIZATION: NO SURGERY: NO PROSTHETIC VALVE: NO PACEMAKER: NO MEASUREMENTS (cm) DIASTOLIC (NORMALS) SYSTOLIC (NORMALS) IVSd 0.8 (0.6-1.2) LA Diam 3.6 (1.9-4.0) LVEF 72% LVIDd 5.2 (3.5-5.7) LVIDs 3.6 (2.0-3.5) %FS 42% LVPWd 0.9 (0.6-1.2) Ao Diam 3.3 (2.0-3.7) 2 DIMENSIONAL ASSESSMENT: RIGHT ATRIUM: NORMAL LEFT ATRIUM: NORMAL RIGHT VENTRICLE: NORMAL LEFT VENTRICLE: NORMAL TRICUSPID VALVE: NORMAL MITRAL VALVE: NORMAL PULMONIC VALVE: NORMAL AORTIC VALVE: NORMAL PERICARDIAL EFFUSION: NONE AORTIC ROOT: NORMAL LEFT VENTRICULAR WALL MOTION: NORMAL DOPPLER/COLOR FLOW: NORMAL COMMENTS: NORMAL 2D ECHOCARDIOGRAM. NO WALL MOTION ABNORMALITIES. NO EFFUSION. MILD TRICUSPID REGURGITATION- NORMAL RIGHT VENTRICULAR SYSTOLIC PRESSURE. TECHNOLOGIST: ABHIJIT VILLA
--- NOTE | 2018-10-15 15:48 | P.PN ---
Subjective Date of Service: 10/15/18 Chief Complaint: chest pain Patient seen and examined chart reviewed and case discussed with RN. Patient complains of leg cramps Review of Systems 10-point ROS is otherwise unremarkable Musculoskeletal: As per HPI Physical Examination - Vital Signs Temperature: 96.7 F Blood Pressure: 126/71 Pulse: 50 Respirations: 16 Pulse Ox (%): 96 - Physical Exam General: Alert, Oriented x3, Mild distress, Obese, Other (Ill-appearing male) HEENT: Atraumatic, PERRLA, EOMI Neck: Supple, JVD not distended Respiratory: Clear to auscultation bilaterally, Normal air movement Cardiovascular: No edema, Normal pulses, Regular rate/rhythm, Normal S1 S2 Gastrointestinal: Normal bowel sounds, Soft and benign, Non-distended, No tenderness Musculoskeletal: No tenderness, Swelling Integumentary: No rashes, No erythema, No cyanosis Neurological: Normal speech, Normal strength at 5/5 x4 extr, Normal tone, Cranial nerves 3-12 intact, Normal affect - Studies Laboratory Data (last 24 hrs) 10/15/18 04:59: PT 12.6 H, INR 1.07 10/15/18 04:59: WBC 3.5 L, Hgb 13.0 L, Hct 38.8 L, Plt Count 220 10/15/18 04:59: Sodium 139, Potassium 4.2, BUN 13, Creatinine 1.10, Glucose 134 H, Magnesium 2.4, Total Bilirubin 0.2, AST 38 H, ALT 32, Alkaline Phosphatase 115, Lipase 47 L Medications List Reviewed: Yes Assessment And Plan - Current Problems (Diagnosis) (1) Right leg DVT Current Visit: Yes Status: Acute Qualifiers: Affected thrombotic vein of extremity: tibial Chronicity: acute Qualified Code(s): I82.441 - Acute embolism and thrombosis of right tibial vein (2) Obesity (BMI 30.0-34.9) Current Visit: Yes Status: Acute (3) Chest pain Current Visit: Yes Status: Acute Qualifiers: Chest pain type: chest pain on breathing Qualified Code(s): R07.1 - Chest pain on breathing; R07.81 - Pleurodynia (4) Chronic pain syndrome Current Visit: Yes Status: Acute - Plan Lovenox 1 milligram/kilogram q 24 hr hematology consultation for hypercoagulable workup. Patient has had recent knee surgeries however on the left Cardiology evaluation Switch to oral anticoagulation in 24 hr Discharge Plan: Home Plan to discharge in: 48 Hours - Code Status/Comfort Care Code Status Assessed: Yes
[2018-10-15] MEDS: HYDROCODONE/APAP 10/325 TAB PO SCH ×2 (16:18→20:17)
[2018-10-15] MEDS: METHOCARBAMOL 500 MG TAB PO SCH ×2 (16:19→20:17)
[2018-10-15] MEDS: GABAPENTIN 400 MG CAP PO SCH ×2 (16:20→20:16)
--- NOTE | 2018-10-15 17:49 | CON ---
Date of Consultation: 10/15/2018 The patient is 57 years old. Reason For Consultation: Chest pain. History Of Present Illness: Mr. Ribeiro is a patient with history of neuropathy, has had multiple surg eries and prolonged hospitalization after what sounds like an infected and pain reliever stimulator d evice that was inserted in his back by his anesthesiologist. Had undergone thoracic spine and cervic al spine surgery in the past. Has had knee replacement in the past. Has no cardiac history. Came i n with what sounds like pleuritic chest pain. He had he only has chest pain when he takes a deep erica ath, was found to have a DVT. Chest x-ray is negative. EKG shows sinus bradycardia. Patient denied PND, orthopnea, pedal edema, palpitations, syncope, fever or chills. Past Medical History: As stated above. Allergies: NONE. Review of Systems: Negative. Social History: Negative. Family History: Negative. Medications: None. Physical Examination: General: Alert and oriented x3. Vital Signs: Stable afebrile HEENT: Negative. Neck: Supple no bruit. Chest: Clear cardiac exam revealed a regular rhythm and rate with an S4 gallops no murmurs or rubs. Abdomen: Benign extremities revealed no clubbing, cyanosis, or edema. Diagnostic Data: As stated earlier. Impression And Plan: 1.Atypical chest pain, probably pleuritic. 2.History of right deep venous thrombosis. The patient needs to be treated for that. I do not william mmend any cardiac workup on him at this point. JERI Voice ID: [id number] Report ID: [id number]
[2018-10-15 18:10] LABS: Urine Appearance CLEAR; Urine Bilirubin NEGATIVE (NEG); Urine Blood NEGATIVE (NEG); Urine Color YELLOW; Urine Glucose NEGATIVE (NEG); Urine Protein NEGATIVE (NEG); Urine Specific Gravity 1.015 (1.005-1.030)
[2018-10-15 18:11] LABS: Urine Microscopic Reflex NO UMIC
[2018-10-15] MEDS ORDERED: HOME MED 1 EA UNK (Gabapentin [Neurontin] 800 MG) PO SCH (21:00)
[2018-10-16 06:00] LABS: Absolute Lymphocytes (CBC) 1.9 K/uL (0.7-4.9); Absolute Monocytes 0.3 K/uL (0.1-1.3); Absolute Neutrophil 1.2 K/uL (1.8-8.0); Basophils % 0.9 % (0-1.3); Eosinophils % 4.2 % (0-4.4); Hematocrit 40.5 % (39.6-49.0); Lymphocytes % 53.6 % (15.3-44.8); MPV 8.4 fL (7.6-11.3); Monocytes % 7.5 % (3.3-12.3); RBC Red Blood Cell Count 4.94 M/uL (4.33-5.43)
[2018-10-16 06:25] LABS: Albumin 3.6 g/dL (3.4-5.0); Bilirubin Total 0.2 mg/dL (0.2-1.0); Protein, Total 7.5 g/dL (6.4-8.2)
[2018-10-16] MEDS ORDERED: ENOXAPARIN 40 MG/0.4 ML SQ SCH (09:00)
[2018-10-16] MEDS: GABAPENTIN 400 MG CAP PO SCH (09:46)
[2018-10-16] MEDS: HYDROCODONE/APAP 10/325 TAB PO SCH (09:46)
[2018-10-16] MEDS: METHOCARBAMOL 500 MG TAB PO SCH (09:47)
[2018-10-16 11:01] VITALS: BP 126/77; TEMP 97.9
[2018-10-16 11:43] VITALS: O2SAT 98
--- NOTE | 2018-10-17 05:59 | DS ---
Date of Discharge: 10/16/2018 Consultants: Dr. Flores with Cardiology, Dr. Nava with Hematology. Discharge Diagnoses: 1.Pleuritic chest pain, resolved. 2.Right leg deep venous thrombosis, tibial vein, superficial femoral vein. 3.Obesity, BMI 32.1. 4.Chronic pain syndrome, on chronic narcotics. Hospital Course: Patient is a 57-year-old male, who comes into the hospital with chest pain. This w as thought to be pleuritic chest pain. Patient recently had knee surgery and had some fluid drained, which was sent out for culture and results were negative. According to the patient, as he was infor med by his orthopedic surgeon at an outside facility. Patient was admitted to the hospital to rule o ut ACS. His cardiac enzymes were negative. No changes on EKG. He was seen by crotch breaker, Dr. Carey. Echocardiogram was done, which showed EF of 72%. There were no wall motion abnormalities. Th ere was mild tricuspid regurgitation. Dr. Flores did not recommend any further workup. Patient's p ain was likely related to pleuritic chest pain, which can be treated with NSAIDs. A CT angio chest w as done, which ruled out PE. Patient's venous Doppler did show an acute right lower extremity deep v enous thrombosis in the right superficial femoral, right popliteal and right posterior tibial veins. Patient was started on Lovenox therapeutic dose and was switched over to Xarelto. Patient has had D VT in the past; however, this previous DVT was provoked, as he was hospitalized for a prolonged perio d of time and was due to immobility. However, this DVT seems to be unprovoked. His knee surgery was on the left side, not on the right. Patient will need a hypercoagulable workup. Dr. Nava with Hematology was curbsided for consultation and she recommended outpatient followup. Patient's p ay sheet and other information were provided to her office to expedite patient's followup. Patient w as instructed to follow up with Dr. Nava. Information regarding her contact was given to hira im. Patient needs to be on Xarelto loading dose 15 mg twice a day for 21 days and then 20 mg daily. He understands the dosing instructions. He has used Xarelto previously. He understands that he herlinda l need anticoagulation for life. He will need to follow up with his primary care physician to obtain refills. Patient was then cleared for discharge. His symptoms had improved. Medications: As per medication reconciliation list. Followup: Follow up with primary care physician in 2 to 3 days. Follow up with auction assistant, Dr. Shane Rutledge in 2 weeks. Follow up with Dr. Flores as needed. Return to ER for worsening condition . Diet: Heart healthy. Activity: As tolerated. Patient encouraged to use compression stockings to prevent post DVT pain an d encourage ambulation. Physical Examination: General: Awake, alert, oriented. No acute distress. CV: S1, S2. No murmurs. Respiratory: Moving air well bilaterally. Abdomen: Abdomen is soft, nontender, nondistended. Positive bowel sounds. Extremities: No clubbing, cyanosis, edema. Neurologic: Nonfocal. It should be noted the patient did have some mild thyromegaly noted on CT angio chest, which needs to be further evaluated by PCP via ultrasound of the thyroid. /KATIA Voice ID: [id number] Report ID: [id number]
== END 2018-10-16 12:02 | disposition home or self-care (01) ==
LOC: ER 04:34 → ERHOLD 07:31 → 2ND 09:09
PROVIDERS: ADMIT Internal Medicine; ATTEND Internal Medicine
DX: R07.89 Other chest pain (principal); I82.441 Acute embolism and thrombosis of right tibial vein; I82.411 Acute embolism and thrombosis of right femoral vein; E66.9 Obesity, unspecified; Z68.32 Body mass index [BMI] 32.0-32.9, adult; G89.4 Chronic pain syndrome
CPT/HCPCS: 36415; 71045; 71275; 80048; 80053; 80061; 80076; 81003; 83690; 83735; 83880; 84484 ×4; 85025 ×2; 85610; 93005; 93306; 93970; 96361; 96372; 96374; 96375; 99285; G0378 ×2; J1650 ×4; J2405; J7030; Q9967

== ENCOUNTER 2020-05-20 20:22 | Emergency (ER) | payer OTHER ==
--- OUTSIDE RECORDS SUMMARY | 2020-05-20 20:25 | XMS REPORT | Clinical Summary ---
:1960 Author Organization [facility] Address [address] [place] [address] Care Team Providers Name Role Phone Agustín Juan MD Primary Care Provider Allergies No Known Allergies Medications Medication Sig Dispensed Refills Start Date End Date Status rivaroxaban Take 20 mg by 0 Acti ve (XARELTO) 20 mg mouth every tablet other day. PT STATES HE HASN'T TAKEN THIS MEDICATION IN 3 MONTHS. tiZANidine 4 mg in am 0 Active (ZANAFLEX) 4 MG 8 mg at night tablet pregabalin (LYRICA) Take 200 mg by 0 Active 200 MG capsule mouth 3 (three) times a day. HYDROcodone-acetami Take 1 tablet by 0 Active nophen (NORCO) mouth every 4 10-325 mg per (four) hours as tabletIndications: needed for acute pain moderate pain (for back and knee pain) .acute pain. traZODone (DESYREL) Take 100 mg by 0 Active 100 MG tablet mouth nightly. methocarbamol Take 500 mg by 0 D iscontinued (ROBAXIN) 500 MG mouth 2 (two) 0 tablet times a day. gabapentin Take 300 mg by 0 Disc ontinued (NEURONTIN) 300 mg mouth 3 (three) 0 capsule times a day. 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 02/16/2019 Anterior knee pain, left 02/16/2019 Infection following a procedure, deep incisional surgi emilie site, subsequent 02/16/2019 encounter Encounters Date Type Specialty Care Team Description 05/19/2020 Telephone Orthopedic Surgery Leroy Meza MD 05/18/2020 Travel 05/09/2020 Pre-Admit Testing Pre-Admission Leroy Meza, Preop testing Appointment Testing (Primary Dx) 05/08/2020 Travel 05/08/2020 Orders Only Orthopedic Surgery Rosanne Knee stif f, left KHALIF Lewis (Primary Dx) 05/02/2020 Abstract Orthopedic Surgery Debbie Lay MA 04/28/2020 Lab Lab Leroy Meza, Status post revision of total replacement of left knee; Mechanical loos ening of internal left knee prosthetic joint, subsequent encounter; Infection follo wing a procedure, deep incisional surgical site, subsequent encounter 04/28/2020 Office Visit Orthopedic Surgery Leroy Meza, Pain d ue to total MD left knee replacement, initial encount er ([facility]) (Primary Dx) 04/28/2020 Orders Only Orthopedic Surgery Kimberli Crenshaw, Status post revision of total replacement of left knee (Primary Dx); KHALIF Mechanical loos ening of internal left knee prosthetic joint, subsequent encounter; Infection follo wing a procedure, deep incisional surgical site, subsequent encounter 04/28/2020 Travel 04/19/2020 Travel 04/17/2020 Travel 04/14/2020 Lab Lab Pedro Esquivel Status post revision of total replacement of left knee; MD Stephan Knee stiff, rig ht 04/14/2020 Travel 04/13/2020 Orders Only Orthopedic Surgery Kimberli Crenshaw MA 04/13/2020 Orders Only Orthopedic Surgery Kimberli Crenshaw, Status post MA revision of tot al replacement of left knee (Primary D x) 04/11/2020 Travel 03/31/2020 Pre-Admit Testing Pre-Admission Leroy Meza, Preop examination Appointment Testing (Primary Dx) 03/31/2020 Travel 03/21/2020 Travel 03/21/2020 Orders Only Orthopedic Surgery Rosanne, Knee stif f, right KHALIF Lewis (Primary Dx) 03/20/2020 Orders Only Orthopedic Surgery Rosanne, Knee stif f, right KHALIF Lewis (Primary Dx) 03/17/2020 Office Visit Orthopedic Surgery Leroy Meza, Anteri or knee pain, left (Primary Dx); MD Status post rev ision of total replacement of left knee 03/17/2020 Travel 03/08/2020 Travel 07/30/2019 Office Visit Orthopedic Surgery Leroy Meza, Status post MD revision of tot al replacement of left knee (Primary D x) 07/16/2019 Office Visit Orthopedic Surgery Leroy Meza, Status post revision of total replacement of left knee (Primary Dx); Pain in left ti tiffany 07/16/2019 Orders Only Orthopedic Surgery Janie Flores Mecha nical loosening of internal left knee prosthetic joint, sequela (Primary Dx); Status post rev ision of total replacement of left knee 07/16/2019 Orders Only Orthopedic Surgery Janie Flores 07/16/2019 Orders Only Orthopedic Surgery Debbie Lay MA 06/24/2019 Abstract Orthopedic Surgery Leroy Meza MD 06/08/2019 Office Visit Orthopedic Surgery Leroy Meza, Status post revision of total replacement of left knee (Primary Dx); Mechanical loos ening of internal left knee prosthetic joint, sequela 06/08/2019 Orders Only Orthopedic Surgery Kimberli Crenshaw, Status post MA revision of tot al replacement of left knee (Primary D x) 06/08/2019 Orders Only Orthopedic Surgery Kimberli Crenshaw, Status post MA revision of tot al replacement of left knee (Primary D x) after 05/20/2019 Social History Tobacco Use Types Packs/Day Years Used Date Former Smoker Cigars 1 37 Quit: 1999 Smokeless Tobacco: Never Used Alcohol Use Drinks/Week oz/Week Comments Not Currently 0 Glasses of wine 0.0 0 Cans of beer 0 Shots of liquor 0 Standard drinks or equivalent Sex Assigned at Date Recorded Not on file Job Start Date Occupation Industry Not on file Not on file Not on file Travel History Travel Start Travel End No recent travel history available. COVID-19 Exposure Response Date Recorded In the last month, have you been in contact with No / Unsure 05/18/2020 10:05 AM CDT someone who was confirmed or suspected to have Coronavirus / COVID-19? Last Filed Vital Signs Vital Sign Reading Time Taken Comments Blood Pressure 122/70 05/09/2020 12:30 PM CDT Pulse 58 05/09/2020 12:30 PM CDT Temperature 35.8 C (96.5 F) 03/31/2020 12:50 PM CDT Respiratory Rate 16 05/09/2020 12:30 PM CDT Oxygen Saturation 98% 05/09/2020 12:30 PM CDT Inhaled Oxygen Concentration - - Weight 129 kg (285 lb) 05/09/2020 12:30 PM CDT Height 200.7 cm (6' 7") 05/09/2020 12:30 PM CDT Body Mass Index 32.11 05/09/2020 12:30 PM CDT Plan of Treatment Date Type Specialty Care Team Description 05/22/2020 Hospital Encounter Orthopedic Surgery Leroy Meza MD [address] [place] [address] [place] [address] [phone] 05/22/2020 Anesthesia Event Orthopedic Surgery Charlotte Ochoa, DOOR LINER [address] [facility] [address] [place], [place] [phone] 05/22/2020 Surgery Orthopedic Surgery Leroy Meza REVISI ON, MD ARTHROPLASTY, KNEE, [address] [place] [address] [place] [address] [phone] 06/09/2020 Office Visit Orthopedic Surgery Leroy Meza MD [address] [place] [address] [place] [address] [phone] Health Maintenance Due Date Last Done Comments DIABETIC RETINAL EYE EXAM 1958 DIABETIC FOOT EXAM 1968 URINE MICROALBUMIN 1968 COLONOSCOPY SCREENING 2008 SHINGLES VACCINES (#1) 2008 INFLUENZA VACCINE 05/20/2020 Implants Implanted Type Area Corrections Specialist Device Shelf Model / Identifier Expiration Serial / Lot Date Cement Bone 40gr Smartset Mv Endurance - [id number] Bone Screw Left: DEPUY 08/19/2020 [id number] / Implanted: Qty: 1 on 03/18/2019 by Leroy Meza MD at [facility] Knee ORTHO-KNEES / [id number] Cement Bone 40gr Smartset Mv Endurance - [id number] Bone Screw Left: DEPUY 08/19/2020 [id number] / Implanted: Qty: 1 on 03/18/2019 by Leroy Meza MD at [facility] Knee ORTH[employer]KNEES / [id number] Attune Crs Femoral Lt Sz 8 Matty - [id number] [id number] IMPLANT Left: DEPU Y 02/16/2029 [id number] / Implanted: Qty: 1 on 03/18/2019 by Leroy Meza MD at [facility] Knee [employer] [id number] Attune Post Fem Aug Sz 8 4mm - [id number] IMPLANT Left: DEPUY 07/19/2028 [id number] / Implanted: Qty: 1 on 03/18/2019 by Leroy Meza MD at [facility] Knee [employer] [id number] Attune Post Fem Aug Sz 8 4mm - [id number] IMPLANT Left: DEPUY 07/19/2028 [id number] / Implanted: Qty: 1 on 03/18/2019 by Leroy Meza MD at [facility] Knee [employer] [id number] Attune Dist Fem Aug Sz 8 4mm - [id number] [id number] IMPLANT Left: DEPUY 07/19/2028 [id number] / Implanted: Qty: 1 on 03/18/2019 by Leroy Meza MD at [facility] Knee [employer] [id number] Attune Dist Fem Aug Sz 8 8mm - [id number] [id number] IMPLANT Left: DEPUY 07/19/2028 [id number] / Implanted: Qty: 1 on 03/18/2019 by Leroy Meza MD at [facility] Knee [employer] [id number] Attune Cemented Stem [id number] - [id number] [id number] IMPLANT Left: DEPUY 08/19/2027 [id number] / Implanted: Qty: 1 on 03/18/2019 by Leroy Meza MD at [facility] Knee [employer] [id number] Attune Crs Rp Insrt Sz 8 10mm - [id number] [id number] IMPLANT Left: DEPUY 09/18/2020 [id number] / Implanted: Qty: 1 on 03/19/2019 by Leroy Meza MD at [facility] DEVICES Knee [employer] [id number] Cement Bone Hiviscocty 40gr Smartset - [id number] Surgical Left: DEPUY ORTHO 07/19/2020 [id number] / Implanted: Qty: 1 on 03/18/2019 by Leroy Meza MD at [facility] Bone Cement Knee / [id number] Procedures Procedure Name Priority Date/Time Associated Comments Diagnosis COVID-19 QUALITATIVE Routine 05/18/2020 10:30 Knee stiff, left Results for this PCR AM CDT procedure are i n the results section. URINE CULTURE Routine 05/09/2020 12:35 Results fo r this PM CDT procedure are i n the results section. ESTIMATED GFR Routine 05/09/2020 12:16 Results fo r this PM CDT procedure are i n the results section. HC COMPLETE BLD COUNT Routine 05/09/2020 12:16 Preop testing R esults for this W/AUTO DIFF PM CDT procedure are i n the results section. BASIC METABOLIC PANEL Routine 05/09/2020 12:16 Preop testing R esults for this PM CDT procedure are i n the results section. TYPE AND SCREEN Routine 05/09/2020 12:16 Preop testing Results for this PM CDT procedure are i n the results section. URINALYSIS SCREEN AND Routine 05/09/2020 12:15 Preop testing R esults for this MICROSCOPY, WITH REFLEX PM CDT proc edure are in TO CULTURE the results section. CELL COUNT AND Routine 04/28/2020 7:40 Results f or this DIFFERENTIAL, BODY PM CDT procedure are in FLUID the results section. CRYSTAL ANALYSIS Routine 04/28/2020 7:40 Status post Results for this PM CDT revision of total procedure are in replacement of left the resu lts knee section. Mechanical loosening of internal left knee prosthetic joint, subsequent encounter Infection following a procedure, deep incisional surgical site, subsequent encounter GA ARTHROCENTESIS Routine 04/28/2020 10:45 Pain due to total R esults for this ASPIR&/INJ MAJOR AM CDT left knee procedure a re in JT/BURSA W/O US replacement, the results initial encounter section. (HCC) COVID-19 QUALITATIVE Routine 04/14/2020 11:20 Status post Res ults for this PCR AM CDT revision of total procedure are in replacement of left the resu lts knee section. C-REACTIVE PROTEIN Routine 04/14/2020 11:09 Status post Resul ts for this AM CDT revision of total procedure are in replacement of left the resu lts knee section. SEDIMENTATION RATE Routine 04/14/2020 11:09 Status post Resul ts for this AM CDT revision of total procedure are in replacement of left the resu lts knee section. ECG PRE/POST OP Routine 03/31/2020 1:57 Preop examination Res ults for this PM CDT procedure are i n the results section. URINALYSIS SCREEN AND Routine 03/31/2020 1:55 Preop examinati on Results for this MICROSCOPY, WITH REFLEX PM CDT proc edure are in TO CULTURE the results section. URINE CULTURE Routine 03/31/2020 1:55 Results fo r this PM CDT procedure are i n the results section. ESTIMATED GFR Routine 03/31/2020 1:45 Results fo r this PM CDT procedure are i n the results section. BASIC METABOLIC PANEL Routine 03/31/2020 1:45 Preop examinati on Results for this PM CDT procedure are i n the results section. HEMOGLOBIN A1C Routine 03/31/2020 1:45 Preop examination Resu lts for this PM CDT procedure are i n the results section. CBC HEMOGRAM Routine 03/31/2020 1:45 Preop examination Result s for this PM CDT procedure are i n the results section. PROTHROMBIN TIME WITH Routine 03/31/2020 1:45 Preop examinati on Results for this INR PM CDT procedure are i n the results section. PARTIAL THROMBOPLASTIN Routine 03/31/2020 1:45 Preop examinat ion Results for this TIME (PTT) PM CDT procedure are i n the results section. TYPE AND SCREEN Routine 03/31/2020 1:45 Preop examination Res ults for this PM CDT procedure are i n the results section. XR KNEE 3 VW LEFT Routine 03/17/2020 10:21 Anterior knee pain, Results for this AM CDT left procedure are i n the results section. CT LOWER EXTREMITY WO Routine 07/21/2019 12:03 Mechanical Re sults for this CONTRAST LEFT PM CDT loosening of procedure are in internal left knee the resul ts prosthetic joint, section. sequela Status post revision of total replacement of left knee XR TIBIA FIBULA 2 VW Routine 07/16/2019 9:03 Status post Res ults for this LEFT AM CDT revision of total procedure are in replacement of left the resu lts knee section. XR TIBIA FIBULA 2 VW Routine 06/08/2019 2:04 Status post Res ults for this LEFT PM CDT revision of total procedure are in replacement of left the resu lts knee section. XR KNEE 3 VW LEFT Routine 06/08/2019 1:16 Status post Result s for this PM CDT revision of total procedure are in replacement of left the resu lts knee section. XR LEG LENGTH Routine 06/08/2019 1:16 Status post Results fo r this EVALUATION PM CDT revision of total procedure are in replacement of left the resu lts knee section. after 05/20/2019 Results COVID-19 qualitative PCR (05/18/2020 10:30 AM CDT)Only the most recent of2 resultswithin the time period is included. Interpretation Negative results do not prec lude 2019-nCoV infection and should not be used as the sole basis for treatment or other patient management decisions. Negative results must be combined with clinical observations, patient history, and epidemiological [place] information. [facility] COVID-19 qualitative Not-Detected Not-Detecte [place] PCR result d [facility] COVID-19 qualitative See link below for [place] PCR PDF Lab HINDUISM ReportComment: Case HOSPITAL Number: [id number] Specimen Nasopharyngeal swab Performing Organization Address City/[facility]/Zipcode Phone Number [facility] DEPARTMENT OF PATHOLOGY AND [address] [place] [phone] [address] [facility] Urine culture (05/09/2020 12:35 PM CDT)Only the most recent of2 resultswithin the time period is included. Pathologist Sig nature Urine culture SEE COMMENTComment: [facility] Bacteriuria [facility] negative. Specimen Performing Organization Address City/State/Zipcode Phone Number [facility] DEPARTMENT OF PATHOLOGY AND [address] [place] [address] [phone] [address] Estimated GFR (05/09/2020 12:16 PM CDT)Only the most recent of2 resultswithin the time period is included. Estimated GFR 76 mL/min/1.73 [facility] Comment: m2 HOSPITAL Catergory Units Interpretation G1 >=90 Normal or high G2 60-89 Mildly decreased G3a 45-59 Mildly to moderately decreas ed G3b 30-44 Moderately to severely decre ased G4 15-29 Severely decreased G5 <15 Kidney failure The eGFR was calculated using the Chronic Kidney Disea se Epidemiology Collaboration (CKD-EPI) equation. Interpretation is based on recommendations of the National Kidney Foundation-Kidney Disease Outcomes Rajat lity Initiative (NKF-KDOQI) published in 2014. Specimen Performing Organization Address City/State/Zipcode Phone Number [facility] DEPARTMENT OF PATHOLOGY AND [address] [place], [place] [phone] GENOMIC MEDICINE [facility] [address] [place] [address] CBC with platelet and differential (05/09/2020 12:16 PM CDT) Pathologist [facility] WBC 2.91 (L) 4.50 - 11.00 [facility] k/uL HOSPITAL RBC 4.86 4.40 - 6.00 [facility] m/[facility] HGB 12.7 (L) 14.0 - 18.0 [facility]/dL [facility] HCT 40.8 (L) 41.0 - 51.0 % [facility] MCV 84.0 82.0 - 100.0 [facility] MCH 26.1 (L) 27.0 - 34.0 pg [facility] MCHC 31.1 31.0 - 37.0 [facility] RDW - SD 42.6 37.0 - 55.0 [facility] MPV 10.2 8.8 - 13.2 [facility] Platelet count 192 150 - 400 k/uL [facility] Nucleated RBC 0.00 /100 WBC [facility] Neutrophils 35.1 (L) 39.0 - 69.0 % [facility] Lymphocytes 52.9 (H) 25.0 - 45.0 % [facility] Monocytes 10.0 0.0 - 10.0 % [facility] Eosinophils 1.4 0.0 - 5.0 % [facility] Basophils 0.3 0.0 - 1.0 % [facility] Immature granulocytes 0.3Comment: 0.0 - 1.0 % [facility] "Immature HOSPITAL granulocytes" (promyelocytes , myelocytes, metamyelocytes ) Specimen Blood Performing Organization Address City/[facility] Phone Number [facility] DEPARTMENT OF PATHOLOGY AND [address] [place] [address] [address] Type and screen (05/09/2020 12:16 PM CDT)Only the most recent of2 resultswithin the time period is included. Pathologist Sig nature ABO grouping A [facility] Rh type POS [facility] Antibody screen (gel) NEG [facility] Specimen Blood Performing Organization Address [facility] Hospitalcode Phone Number [facility] DEPARTMENT OF PATHOLOGY AND [address] [place] [address] [address] Basic metabolic panel (05/09/2020 12:16 PM CDT)Only the most recent of2 results within the time period is included. Pathologist Sig replaced by [facility] Sodium 141 135 - 148 mEq/L [facility] L Potassium 4.9 3.5 - 5.0 mEq/L [facility] L Chloride 103 98 - 112 mEq/L [facility] CO2 25 24 - 31 mEq/L [facility] Anion gap 13@ANIO 7 - 15 mEq/L [facility] BUN 16 8 - 23 mg/dL [facility] Creatinine 1.18 0.70 - 1.20 mg/dL [facility] Glucose 87 65 - 99 mg/dL [facility] Calcium 9.0 8.8 - 10.2 mg/dL [facility] Specimen Blood Performing Organization Address City/[facility] Hospitalcode Phone Number [facility] DEPARTMENT OF PATHOLOGY AND [address] [place] [address] [phone] [address] Urinalysis screen and microscopy, with reflex to culture (05/09/2020 12:15 PM CDT)Only the most recent of2 resultswithin the time period is included. Pathologist Sig nature Specimen site Clean catch [facility] Color, UA Straw [facility] Appearance, UA Clear [facility] Specific gravity, 1.004 1.001 - 1.035 [facility] pH, UA 6.0 5.0 - 8.5 [facility] Protein, UA Negative Negative [facility] Glucose, UA Negative Negative [facility] Ketones, UA Negative Negative [facility] Bilirubin, UA Negative Negative [facility] Blood, UA Negative Negative [facility] Nitrite, UA Negative Negative [facility] Urobilinogen, UA <2.0 <2.0 [facility] Leukocyte esterase, Negative Negative [facility] WBC, UA None seen 0 - 1 /HPF [facility] RBC, UA None seen 0 - 5 /HPF [facility] Bacteria, UA None seen None seen [facility] Yeast, UA None seen [facility] Yeast with None seen [facility] pseudohyphae, UA HOSPITAL Specimen Urine Performing Organization Address City/[facility] Hospital[facility] Phone Number [facility] DEPARTMENT OF PATHOLOGY AND [address] [place] [address] [phone] [address] Crystal analysis (04/28/2020 7:40 PM CDT) Pathologist Sig nature Crystal analysis Knee [facility] specimen type HOSPITAL Monosodium urate None seen None seen [facility] CPPD crystals None seen None seen [facility] Specimen Fluid Performing Organization Address City/[facility] Phone Number [facility] DEPARTMENT OF PATHOLOGY AND [address] [place] [address] [phone] [address] Cell count and differential, body fluid (04/28/2020 7:40 PM CDT) Misc fluid type SynovialComment [facility] : Left Knee [facility] Color, fluid Red [facility] Appearance, fluid Hazy [facility] RBC, fluid 222,000 /CMM [facility] Nucleated cells, 561 /CMM [facility] Fluid mononuclear See Diff [facility] Neutrophils, fluid 63 % [facility] Lymphocytes, fluid 16 % [facility] Eosinophils, fluid 4 % [facility] Macrophages, fluid 17 % [facility] Specimen Fluid Performing Organization Address City/[facility] Phone Number [facility] DEPARTMENT OF PATHOLOGY AND [address] [place] [address] [phone] [address] Large Joint Arthrocentesis: knee, L knee (04/28/2020 10:45 AM CDT) Narrative Performed At Leroy Meza MD 04/29/2020 5:5 4 PM Large Joint Arthrocentesis: knee, L knee Consent given by: patient Site marked: site marked Timeout: Immediately prior to procedure a time out was called to verify the correct patient, procedure, equipmen t, family support worker and site/side marked as required Supporting Documentation Indications: diagnostic evaluation Procedure Details Preparation: Patient was prepped and eva ped in the usual sterile fashion Ultrasound guided: no Platelet Rich Plasma Used: no PRP Used Location: knee - L knee Left side: Needle size: 20 G Approach: superior Aspirate amount: 6 mL Aspirate: serous and bloody Analysis: fluid sent for laboratory anal ysis Patient tolerance: patient tolerated the procedure wel l with no immediate complications Sedimentation rate (04/14/2020 11:09 AM CDT) Pathologist Sig replaced by [facility] Sedimentation rate 16 (H) 0 - 10 mm/hr [facility] Specimen Blood Performing Organization Address [facility] Phone Number [facility] DEPARTMENT OF PATHOLOGY AND [address] [place] [address] [phone] [address] C-reactive protein (04/14/2020 11:09 AM CDT) Pathologist Sig nature CRP 0.69 (H) 0.00 - 0.50 mg/dL [facility] Specimen Blood Performing Organization Address [facility] Phone Number [facility] DEPARTMENT OF PATHOLOGY AND [address] [place] [phone] [address] [address] ECG Pre/Post Op (03/31/2020 1:57 PM CDT) Pathologist Sig nature Ventricular rate 51 [facility] Atrial rate 51 [facility] GA interval 164 [facility] QRSD interval 104 [facility] QT interval 448 [facility] QTC interval 412 [facility] P axis 1 61 [facility] QRS axis 1 -41 [facility] T wave axis 27 [facility] EKG impression Sinus bradycardia-Left [facility] MUSE axis deviation-Abnormal ECG-In automated comparison with ECG of 08-MAR-2019 15:44,-Nonspecific T wave abnormality no longer evident in Lateral leads- Specimen Narrative Performed At This result has an attachment that is no t available. Performing Organization Address City/[facility]/Zipcode Phone Number [facility] MUSE [address] [place] [phone] Partial thromboplastin time, activated (03/31/2020 1:45 PM CDT) [facility] Signature PTT 31.3 23.0 - 36.0 [facility] Comment: [facility] PTT therapeutic range for unfractionated heparin is 61.0-112.0 seconds which corresponds to Anti-Xa 0.3-0.7 U/ml. Specimen Blood Performing Organization Address City/[facility]/Zipcode Phone Number [facility] DEPARTMENT OF PATHOLOGY AND [address] [place] [address] [phone] [address] Prothrombin time with INR (03/31/2020 1:45 PM CDT) [facility] Prothrombin time 14.3 11.5 - 14.[address] [facility] INR 1.1 [place] Comment: [facility] International Normalized Ratio (INR) is a therapeu [facility] HOSPITAL monitoring tool for patients who are stable on oral anticoagulant therapy. An INR of 2.0-3.0 is suggested for deep vein thrombosis/pulmonary embolism. Specimen Blood Performing Organization Address City/[facility] Phone Number [facility] DEPARTMENT OF PATHOLOGY AND [address] [place] [address] [phone] [address] CBC hemogram (03/31/2020 1:45 PM CDT) Pathologist Sig nature WBC 3.26 (L) 4.50 - 11.00 k/uL [facility] RBC 5.15 4.40 - 6.00 m/uL [facility] HGB 13.5 (L) 14.0 - 18.0 g/dL [facility] HCT 43.5 41.0 - 51.0 % [facility] MCV 84.5 82.0 - 100.0 fL [facility] MCH 26.2 (L) 27.0 - 34.0 pg [facility] MCHC 31.0 31.0 - 37.0 g/dL [facility] RDW - SD 42.3 37.0 - 55.0 fL [facility] MPV 10.9 8.8 - 13.2 fL [facility] Platelet count 191 150 - 400 k/uL [facility] Nucleated RBC 0.00 /100 WBC [facility] Specimen Blood Performing Organization Address City/State/Zipcode Phone Number [facility] DEPARTMENT OF PATHOLOGY AND [address] [place], [place] [phone] [address] Hemoglobin A1c (03/31/2020 1:45 PM CDT) Hemoglobin A1C 6.3 (H) 4.0 - 5.6 % [facility] Comment: HOSPITAL HbA1c cutoffs for diagnosing diabetes: 4.0% - 5.6% = normal 5.7% - 6.4% = increased risk for diabetes (prediabetes )9 >=6.5% = diabetes9 Goals for glycemic control (ADA 2016) < 7.0% Target for non adults with diabetes. More or less stringent targets may be appropriate for individual patients. <7.5% Target for Children and adolescents with type 1 diabetes. Specimen Blood Performing Organization Address City/[facility] Phone Number [facility] DEPARTMENT OF PATHOLOGY AND [address] [place] [address] [phone] [address] XR Knee 3 Vw Left (03/17/2020 10:21 AM CDT)Only the most recent of2 results within the time period is included. Specimen Narrative Performed At This result has an attachment that is no t available. 3 Rays of the left knee, 3 views, demonstrate well fixed cemented left [facility] knee with revision knee components. No significant c hanges in comparison to previous x-rays. There is also a significant hete rotopic ossification on the anterior aspect of the right femoral cortex. 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 CT imaging was performed wi th iterative reconstruction technique and/or automated exposure con trol to reduce radiation dose. 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 Femoral stem is partially visualized. No ev idence of osteolysis, hardware failure or loosening the tibial c omponent. Degenerative/postoperative patellar radhames deling. 2.No fractures. Calcifications adjacent to the medial malleolus, likely sequela of prior trauma or degenerative. Degenerative changes about the hindfoot and visualized midfoot joints. 3.Vascular calcifications. Mild prepatellar and infrap atellar soft tissue swelling and thickening, likely p ostoperative. 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 CT imaging was performed with iterative reconstruction technique and/or automated exposure control to reduce radiation dose. COMPARISON: Tib-fib radiographs from pt2018 IMPRESSION: 1.Status post revision left total knee a rthroplasty with longstem tibial component. Femoral stem is partially visualized. No evidence of osteolysis, hardware failure or loosening the tibial component. Degenerative/postoperative patellar remodeling. 2.No fractures. Calcifications adjacent to the medial malleolus, likely sequela of prior trauma or degenerative. Degenerative changes about the hindfoot and visualized midfoot joints. 3.Vascular calcifications. Mild prepatel lar and infrapatellar soft tissue swelling and thickening, likely postoperative. [id number] Performing Organization Address City/State/Zipcode Phone Number [facility] [address] [place] [address] XR Tibia Fibula 2 Vw Left (07/16/2019 9:03 AM CDT)Only the most recent of2 resultswithin the time period is included. Specimen Narrative Performed At This result has an attachment that is no t available. The x-rays of the left tibia and fibula demonstrate a well fixed left [facility] tibial component stem. No significant ostial lysis o r radiographic evidence of loosening is appreciated. No obvious fra cture of the left tibia. Performing Organization Address City/[facility]/Zipcode Phone Number [facility] [address] [place] [address] XR Leg Length Evaluation (06/08/2019 1:16 PM CDT) Specimen Narrative Performed At This result has an attachment that is no t available. The x-rays of the long legs demonstrate neutral alignment of left lower [facility] extremity no significant arthritis of bilateral hips o r right knee Performing Organization Address [facility]/Zipcode Phone Number JU[facility] [address] [place] [address] after 05/20/2019 Insurance Payer Benefit Plan / Subscriber ID Effective Dates Phone Addre ss Type Group CIGNA CIGNA OPEN xxxxxxxxxxx 2015-Present HMO ACCESS/NETWORK MEDICARE MEDICARE PART A xxxxxxxxxxx 2016-Present [place], [place] Medicare AND B [place] . 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
--- OUTSIDE RECORDS SUMMARY | 2020-05-20 20:27 | XMS REPORT | Continuity of Care Document ---
:1960 Author Organization [employer] Care Team Providers Name Role Phone Travel Appeal Unavailable Un available Problems Problem Status Onset Classification Date Comments Sourc e Date Reported G06.2 Active 08/26/20 [facility] [place] XRAY Active 07/14/[address] BACK PAIN Active 06/19/20 [place] [address] [place],[facility] 724.2 Active 05/24/[address] 724.2 ACUTE LOW Active 05/09/[address] [facility] Type 2 diabetes Active Diagnosis 10/29/2017 2.1 6.840.1. mellitus without 113 883.4.39 complication, 1.11.2 2568 without long-term current use of insulin Staphylococcus Active Diagnosis 10/29/2017 2.16 .840.1. aureus bacteremia 11 3883.4.39 with sepsis 1.11. 68 Abscess in Active Diagnosis 10/29/2017 2.16.840 .1. epidural space of 11 3883.4.39 thoracic spine 1.. 49568 Local infection Active Diagnosis 09/10/2017 2.1 6.840.1. of the skin and 1138 83.4.39 subcutaneous 1.11.22 568 tissue, unspecified Abrasion of right Active Diagnosis 09/10/2017 2 .16.840.1. front wall of 786602 .4.39 thorax, 1..01400 subsequent encounter Osteomyelitis Active Problem 10/29/2017 2.16. 840.1. 615370.4.3 9 1..45030 Sepsis Active Problem 10/29/2017 2.16.840. 1. 095817.4.3 9 1..48848 Bacteremia Active Problem 10/29/2017 2.16.840 .1. 582706.4.3 9 1..81273 HTN Active Problem 10/29/2017 2.16.840. 1. (hypertension) 67785 3.4.39 1.11.59315 Epidural abscess Active Problem 10/29/2017 2. 16.840.1. 599862.4.3 9 Chronic back pain Active Problem 10/29/2017 2 .16.840.1. 226239.4.3 9 DM (diabetes Active Problem 10/29/2017 2.16.8 40.1. mellitus) 904306.4.3 9 Chronic back pain Resolved Problem 10/29/2019 [place] (disorder) Neuro,[facility] Diabetes mellitus Resolved Problem 10/29/2019 [place] (disorder) Neuro,[facility] Hypertensive Resolved Problem 10/29/2019 M[place] disorder, Neuro, systemic arterial [place] (disorder) Simple obesity Active Problem 10/29/2019 Misc her (disorder) Neuro,[facility] DORSALGIA, Active [facility] UNSPECIFIED [place] Medications Medication Details Route Status Patient Ordering Order Source Instructions Provider Date Keflex 1 tablet Orally Active 500 MG Orally [place] .16.8 40.1 every 6 hrs 2017 .049461.4. 391.225 68 Omnipaque 300 Notes: (Same Inactive as:Omnipaque 2017 [facility] 300). WASTE: F/P - Black; E - [facility]; to (do) Centers Bin Rifampin 1 capsule PO Active 300 MG PO [place] .16.840 .1 twice a day 2017 .042035.4. (bid) 391.225 68 Doxycycline 1 capsule Orally Active 100 MG Orally [place] .16.840.1 Hyclate every 12 hrs 2017 .579625.4. 391.225 68 Rifampin 1 capsule PO Active 300 MG PO [place] .16.840 .1 twice a day 2017 .205106.4. (bid) 391.11.225 68 OPANA ER OPANA ER Inactive (C-II) (C-II) 2016 [facility] Controlled Med Controlled Pt's Own Med Med Pt's Own Med, 10 mg, 1 tab, Drug form: MISC, Route: PO, Q12H, 07/04/17 21:00:00 CDT, Duration: 30 day, Stop date: 08/03/17 9:00:00 CDT Opana ER 10 mg, Route: Inactive PO, Drug 2016 [facility] form: ERTAB, Q12H, Dosing Weight 129, kg, Start date: 07/04/17 21:00:00 CDT, Duration: 30 day, Stop date: 08/03/17 9:00:00 CDT Cefazolin 2 gm = 100 Active mL, IVPB, 2016 [facility] ABXQ8H, 0 Refill(s) OPANA ER OPANA ER Inactive (C-II) (C-II) 2016 [facility] Controlled Med Controlled Pt's Own Med Med Pt's Own Med, 10 mg, Drug form: MISC, Route: PO, Q12H, Priority: NOW, 07/04/17 11:48:00 CDT, Duration: 30 day, Stop date: 08/03/17 9:00:00 CDT MS Contin Notes: Do not No Longer crush (Same Active 2016 [facility] as:Oramorph SR, MS Contin) Oxycontin Notes: Do not No Longer crush or Active 2016 [facility] chew. (Same as: OxyContin) Naloxone 0.4 mg, No Longer Route: IVP, Active 2016 [facility] Q2MIN, Dosing Weight 129, kg, PRN Narcotic Reversal, Start date: 06/30/17 14:25:00 CDT, Duration: 8 doses or times, Stop date: Limited # of times Flumazenil 0.2 mg, No Longer Route: IVP, Active 2016 [facility] PRN, Dosing Weight 129, kg, PRN Benzodiazepin e Reversal, Initial dose, Start date: 06/30/17 14:25:00 CDT, Duration: 30 day, Stop date: 07/30/17 14:24:00 CDT Morphine 4 mg, Route: No Longer IVP, Q5Min, Active 2016 [facility] Dosing Weight 129, kg, PRN Pain Score 7-10, Start date: 06/30/17 14:25:00 CDT, Duration: 3 doses or times, Stop date: Limited # of times Oxycodone 10 mg, Route: No Longer NG, Drug Active 2016 [facility] form: LIQ, Q4H, Dosing Weight 129, kg, PRN Pain Score 7-10, Start date: 06/30/17 14:25:00 CDT, Duration: 30 day, Stop date: 07/30/17 14:24:00 CDT Hydromorphone 0.5 mg, No Longer Route: IVP, [facility] 2016 [facility] Q5Min, Dosing Weight 129, kg, PRN Pain Score 7-10, Start date: 06/30/17 14:25:00 CDT, Duration: 4 doses or times, Stop date: Limited # of times Fentanyl 50 microgram, No Longer Route: IVP, [facility] 2016 [facility] Q5Min, Dosing Weight 129, kg, PRN Pain Score 7-10, Priority: Routine, Start date: 06/30/17 14:25:00 CDT, Duration: 2 doses or times, Stop date: Limited # of times Diphenhydramine 12.5 mg, No Longer Route: IVP, [facility] 2016 [facility] Drug form: INJ, Q6H, Dosing Weight 129, kg, PRN Itching, Start date: 06/30/17 14:25:00 CDT, Duration: 30 day, Stop date: 07/30/17 14:24:00 CDT Albuterol 0.83 2.49 mg, No Longer MG/ML Inhalant Route: NEB, 2016 [place] Q20Min, Dosing Weight 129, kg, PRN Wheezing, Priority: STAT, Start date: 06/30/17 14:25:00 CDT, Duration: 30 day, Stop date: 07/30/17 14:24:00 CDT Ondansetron 4 mg, Route: No Longer IVP, ONCE, 2016 [facility] Dosing Weight 129, kg, PRN Nausea & Vomiting, Start date: 06/30/17 14:25:00 CDT Meperidine 12.5 mg, No Longer Route: IVP, [facility] 2016 [facility] Q30Min, Dosing Weight 129, kg, PRN Other -See Comment, For shivering, Start date: 06/30/17 14:25:00 CDT, Duration: 2 doses or times, Stop date: Limited # of times esmolol 10 mg, Route: No Longer IVP, Q5Min, Active 2016 [facility] Dosing Weight 129, kg, PRN Other -See Comment, Start date: 06/30/17 14:25:00 CDT, Duration: 5 doses or times, Stop date: Limited # of times Hydralazine 10 mg, Route: No Longer IVP, Q20Min, Active 2016 [facility] Dosing Weight 129, kg, PRN Elevated BP, Start date: 06/30/17 14:25:00 CDT, Duration: 2 doses or times, Stop date: Limited # of times Labetalol 10 mg, Route: No Longer IVP, Q5Min, Active 2016 [facility] Dosing Weight 129, kg, PRN Elevated BP, Start date: 06/30/17 14:25:00 CDT, Duration: 5 doses or times, Stop date: Limited # of times Acetaminophen 1,000 mg, No Longer Route: IVPB, Active 2016 [facility] Drug form: INJ, ONCE, Dosing Weight 129, kg, PRN Pain Score 1-3, Start date: 06/30/17 14:25:00 CDT, Duration: 1 doses or times, Stop date: Limited # of times Ketorolac 30 mg, Route: No Longer IVP, ONCE, Active 2016 [facility] Dosing Weight 129, kg, Start date: 06/30/17 14:25:00 CDT, Duration: 1 doses or times, Stop date: 06/30/17 14:25:00 CDT ondansetron Route: IV, Inactive (ANES) Drug form: 2016 [facility] INJ, ONCE, Stop date: 06/30/17 13:39:00 CDT lidocaine (ANES) Route: IV, Inactive Drug form: 2016 [facility] INJ, ONCE, Stop date: 06/30/17 13:34:00 CDT hydromorphone Route: IV, Inactive (ANES) Drug form: 2016 [facility] INJ, ONCE, Stop date: 06/30/17 13:34:00 CDT propofol (ANES) Route: IV, Inactive Drug form: 2016 [place] INJ, ONCE, Stop date: 06/30/17 13:34:00 CDT LR 1000 mL INJ Route: IV, Inactive (ANES) Total Volume: 2016 [place] 1,000, Start date: 06/30/17 12:39:00 CDT, Stop date: 06/30/17 13:39:00 CDT Calcium Chloride 1,000 mL, Inactive 0.0014 MEQ/ML / Rate: [address] Potassium ml/hr, Infuse Chloride 0.004 over: 40 hr, MEQ/ML / Sodium Route: IV, Chloride 0.103 Dosing Weight MEQ/ML / Sodium 129 kg, Total Lactate 0.028 Volume: MEQ/ML 1,000, Start Injectable date: Solution 06/30/17 12:24:00 CDT, Duration: 30 day, Stop date: 07/30/17 12:23:00 CDT Morphine Notes: (Same No Longer as:MORPhine Active 2016 [facility] Sulfate) Lactated Ringers 1,000 mL, No Longer 1,000 mL Rate: [address] [facility] ml/hr, Infuse over: 10 hr, Route: IV, Dosing Weight 129 kg, Total Volume: 1,000, Priority: Routine, Start date: 06/30/17 0:00:00 CDT, Duration: 30 day, Stop date: 07/29/17 23:59:00 CDT Clonidine Notes: (Same No Longer Hydrochloride As: Catapres) Active 2016 [place] 0.1 MG Oral Tablet Calcium Notes: WASTE: Inactive Gluconate F/P - Sink; E 2016 [place] - Municipal Trash Bin K-Dur 20 Notes: (Same Inactive as: K-Dur 20) 2016 [facility] "Do Not Crush" With food and full glass of water gabapentin Notes: (Same No Longer as: Active 2016 [facility] Neurontin) heparin sodium, Notes: No Longer porcine [address] [facility] UNT/ML heparin Injectable Solution gabapentin 800 800 mg = 1 Active MG Oral Tablet tab, PO, TID, 2017 [place] # 90 tab, 3 Refill(s) Acetaminophen 1 tab, PO, Active 325 MG / Q6H, PRN for 2016 Hydrocodone pain, # 24 Bitartrate 10 MG tab, 0 Oral Tablet Refill(s) [Richton 10/325] Docusate Sodium Notes: (Same No Longer H 100 MG Oral as: Colace) Active 2016 [facility] t Capsule (Do Not Crush) Hydromorphone 15 mg, 30 mL, Inactive Route: IV, 2016 Initial Loading Dose: 0.4mg, CRITICAL CARE EDUCATOR Dose: 0.2 mg, CRITICAL CARE EDUCATOR Lockout: 10 minutes, Continuous Basal Rate: 0 mg, 4 Hour Limit (In MG): 6, Continuous, Start date: 06/27/17 14:30:00 CDT, Duration: 30 day, Stop date: 07/27/17 14:29:00 CDT Naloxone Notes: Same No Longer as Narcan Active 2016 Morphine 30 mg, 30 mL, Inactive Route: IV, 2016 Initial Loading Dose: 2 mg, CRITICAL CARE EDUCATOR Dose: 1 mg, CRITICAL CARE EDUCATOR Lockout: 10 minutes, Continuous Basal Rate: 0 mg, 4 Hour Limit (In MG): 30, Continuous, Start date: 06/27/17 14:00:00 CDT, Duration: 30 day, Stop date: 07/27/17 13:59:00 CDT Meperidine Notes: (Same No Longer As: Demerol) Active 2016 Albuterol 0.83 Notes: SEE RT No Longer H MG/ML Inhalant DOCUMENTATION Active 2016 [facility] theast Solution (Same as: Proventil) Diphenhydramine Notes: (Same No Longer H as: Benadryl) Active 2016 [facility] Promethazine Notes: Do not No Longer give IV push. Active 2016 (Same as: Phenergan) Ondansetron Notes: (Same No Longer as: Zofran) Active 2016 [facility] MEDICATION WASTE Product Size: 4 mg Product Wasted: _0__ mg Hydromorphone 0.5 mg, Inactive Route: IVP, 2016 Q5Min, Dosing Weight 129, kg, PRN Pain Score 7-10, Start date: 06/27/17 13:49:00 CDT, Duration: 4 doses or times, Stop date: Limited # of times Naloxone Notes: Same No Longer as Narcan Active 2016 [facility] Flumazenil Notes: (Same No Longer as: Active 2016 [facility] Romazicon) Calcium Chloride 1,000 mL, No Longer 0.0014 MEQ/ML / Rate: 125 Active 2016 [facility] ast Potassium ml/hr, Infuse Chloride 0.004 over: 8 hr, MEQ/ML / Sodium Route: IV, Chloride 0.103 Dosing Weight MEQ/ML / Sodium 129 kg, Total Lactate 0.028 Volume: MEQ/ML 1,000, Start Injectable date: Solution 06/27/17 13:49:00 CDT, Duration: 30 day, Stop date: 07/27/17 13:48:00 CDT Oxycodone Notes: (Same No Longer as: Active 2016 [facility] Roxicodone) Acetaminophen Notes: Max No Longer acetaminophen Active 2016 [facility] 4000 mg/day (4 gm/day). (Same as: Tylenol Extra Strength) Hydralazine Notes: (Same No Longer as: Active 2016 [facility] Apresoline) Push over 5 minutes esmolol Notes: (Same No Longer as: Active 2016 [facility] Brevibloc) Labetalol Notes: (Same No Longer as: Active 2016 [facility] [place], Trandate) Push over 2 minutes Give bolus over 2-3 minutes. Naloxone Notes: Same No Longer as Narcan Active 2016 [facility] sodium chloride 1,000 mL, No Longer 0.45% 1000 ml Rate: [address] [facility] INJ 1,000 mL ml/hr, Infuse over: 33.3 hr, Route: IV, Dosing Weight 129 kg, Total Volume: 1,000, Start date: 06/27/17 13:43:00 CDT, Duration: 30 day, Stop date: 07/27/17 13:42:00 CDT Promethazine Notes: Do not No Longer give IV push. Active 2016 [facility] (Same as: Phenergan) Acetaminophen Notes: Do not No Longer 325 MG / exceed Active 2016 [facility] Hydrocodone 4gm/day of Bitartrate 10 MG acetaminophen Oral Tablet . (Same as: Richton 325/10) phenylephrine Route: IV, Inactive (ANES) Drug form: 2016 [facility] INJ, ONCE, Stop date: 06/27/17 12:53:00 CDT hydromorphone Route: IV, Inactive (ANES) Drug form: 2016 [facility] INJ, ONCE, Stop date: 06/27/17 12:38:00 CDT ceFAZolin (ANES) Route: IV, Inactive Drug form: 2016 [facility] INJ, ONCE, Stop date: 06/27/17 12:06:00 CDT cefepime (ANES) Route: IV, Inactive Drug form: 2016 [facility] INJ, ONCE, Stop date: 06/27/17 11:41:00 CDT metroNIDAZOLE Route: IV, Inactive (ANES) Drug form: 2016 [facility] INJ, ONCE, Stop date: 06/27/17 11:16:00 CDT Albuterol 0.833 Notes: (Same Inactive MG/ML / as: Duoneb) 2016 [facility] Ipratropium [place] 0.167 MG/ML Inhalant Solution Calcium Chloride 1,000 mL, No Longer 0.0014 MEQ/ML / Rate: 25 Active [address] [facility] [address] Potassium ml/hr, Infuse Chloride 0.004 over: 40 hr, MEQ/ML / Sodium Route: IV, Chloride 0.103 Dosing Weight MEQ/ML / Sodium 129 kg, Total Lactate 0.028 Volume: MEQ/ML 1,000, Start Injectable date: Solution 06/27/17 9:38:00 CDT, Duration: 1 day, Stop date: 06/28/17 9:37:00 CDT ondansetron Route: IV, Inactive (ANES) Drug form: 2016 [facility] INJ, ONCE, Stop date: 06/27/17 9:21:00 CDT succinylcholine Route: IV, Inactive (ANES) Drug form: 2016 [facility] INJ, ONCE, Stop date: 06/27/17 9:21:00 CDT propofol (ANES) Route: IV, Inactive Drug form: 2016 [facility] INJ, ONCE, Stop date: 06/27/17 9:21:00 CDT rocuronium Route: IV, Inactive (ANES) Drug form: 2016 [facility] INJ, ONCE, Stop date: 06/27/17 9:21:00 CDT lidocaine (ANES) Route: IV, Inactive Drug form: 2016 [facility] INJ, ONCE, Stop date: 06/27/17 9:16:00 CDT midazolam (ANES) Route: IV, Inactive Drug form: 2016 [facility] SOLN, ONCE, Stop date: 06/27/17 9:16:00 CDT acetaminophen Route: IV, Inactive (ANES) Drug form: 2016 [facility] INJ, ONCE, Stop date: 06/27/17 9:16:00 CDT fentaNYL (ANES) Route: IV, Inactive Drug form: 2016 [facility] INJ, ONCE, Stop date: 06/27/17 9:16:00 CDT ceFAZolin (ANES) Route: IV, Inactive Drug form: 2016 [facility] INJ, ONCE, Stop date: 06/27/17 9:11:00 CDT vancomycin Route: IV, Inactive (ANES) (ANES) Drug form: [address] [facility] [address] INJ, Start date: 06/27/17 8:37:00 CDT, Stop date: 06/27/17 9:37:00 CDT LR 1000 mL INJ Route: IV, Inactive (ANES) Total Volume: 2016 [facility] 1,000, Start date: 06/27/17 7:56:00 CDT, Stop date: 06/27/17 8:56:00 CDT bupivacaine-epin Notes: No Longer ephrine (bupivacaine- Active 2016 [facility] 0.25%-1:200,000 epi preservative-mechelle 0.25%-1:200,0 e injectable 00 30 ml VL) solution Not for use in continuous infusion. (Same As: Marcaine w/Epi) Docusate Sodium Notes: (Same No Longer 06/26/ H 100 MG Oral as: Colace) Active 2016 [facility] t Capsule (Do Not Crush) Lactulose 667 Notes: (Same Inactive MG/ML Oral as:Chronulac) [address] [facility] [address] Solution gabapentin Notes: (Same No Longer as: Active 2016 [facility] Neurontin) Lidocaine 40 Notes: (Same No Longer MG/ML Topical as: Active 2016 [facility] Cream Xylocaine) metoprolol Notes: (Same No Longer tartrate as: Active 2016 [facility] Lopressor) Dilaudid 0.8 mg, 0.8 No Longer mL, Route: Active 2016 [facility] IV, Drug form: INJ, Q3H, Dosing Weight 129, kg, PRN Pain Score 4-6, Start date: 06/24/17 10:36:00 CDT, Duration: 30 day, Stop date: 07/24/17 10:35:00 CDT OPANA ER OPANA ER No Longer (C-II) (C-II) Active 2016 [facility] Controlled Med Controlled Pt's Own Med Med Pt's Own Med, 10 mg, 1 tab, Drug form: MISC, Route: PO, BID, 06/23/17 21:00:00 CDT, Duration: 30 day, Stop date: 07/23/17 9:00:00 CDT Opana 10 mg, Route: Inactive PO, Drug 2016 [facility] form: TAB, BID, Dosing Weight 129, kg, Start date: 06/23/17 17:00:00 CDT, Duration: 30 day, Stop date: 07/23/17 9:00:00 CDT *ATTN RN please *ATTN RN Inactive bring pt home please bring 2016 [facility] med Opana to pt home med pharmacy Opana to pharmacy , *ATTN RN, Drug form: MISC, Route: MISC, QSHIFT, 06/23/17 16:00:00 CDT, Duration: 30 day, Stop date: 07/23/17 8:00:00 CDT Motrin Notes: (Same No Longer as: Motrin) Active 2016 [facility] "Do Not Crush" Take with food. famotidine Notes: (Same No Longer as: Pepcid) Active 2016 [facility] Famotidine / 1 tab, Route: Inactive Ibuprofen PO, Drug 2016 [facility] Form: TAB, Dosing Weight 129, kg, TID, PRN Pain Score 4-6, Start date: 06/23/17 14:30:00 CDT, Duration: 30 day, Stop date: 07/23/17 14:29:00 CDT sodium chloride 1,000 mL, No Longer 0.9% 1000 ml INJ Rate: 60 Active 2016 [facility] ast 1,000 mL ml/hr, Infuse over: 16.7 hr, Route: IV, Dosing Weight 129 kg, Total Volume: 1,000, Start date: 06/23/17 14:29:00 CDT, Duration: 30 day, Stop date: 07/23/17 14:28:00 CDT Famotidine 26.6 1 tab, PO, Active MG / [facility]ro[facility] TID, [facility], # 90 Tablet [Duexis] tab, 0 Refill(s) Cefazolin Notes: Same No Longer as: Ancef Active 2016 [facility] Oxymorphone 10 mg = 1 Active Hydrochloride 10 tab, PO, BID, 2016 [place] Oral Tablet 0 Refill(s) [Opana] gabapentin Notes: (Same No Longer as: Active 2016 [facility] Neurontin) vancomycin 2001 mg: No Longer infuse over Active 2016 [facility] 2.5 hours Vancomycin 1.25 gm, No Longer Route: IV, Active 2016 [facility] Q8H, Dosing Weight 129, kg, Start date: 06/21/17 0:00:00 CDT, Duration: 14 day, Stop date: 07/04/17 16:00:00 CDT, Pharmacy to dose, ABX Indication: Bone/Joint Infection vancomycin 2001 mg: Inactive infuse over 2016 [facility] 2.5 hours heparin Notes: No Longer porcine Active 2016 [facility] heparin Robaxin Notes: (Same No Longer as:Robaxin) Active 2016 [facility] cefepime Notes: (Same No Longer as: Maxipime) Active 2016 [facility] MEDICATION WASTE Product Size: 2000 mg Product Wasted: ___ mg Metformin Notes: (Same Inactive hydrochloride as: 2016 1000 MG Oral Glucophage) Tablet Take with meal gabapentin Notes: (Same No Longer as: Active 2016 [facility] Neurontin) Zosyn Notes: (Same Inactive as: Zosyn) 2016 [facility] Dosing based on Piperacillin component MEDICATION WASTE Product Size: 3375 mg Product Wasted: ___ mg Vancomycin 1 ea, Route: Inactive MEL SALDAÑA, 2016 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 Insulin Lispro Notes: Roll No Longer in palms of Active 2016 [facility] hands gently; Do not shake `vigorously. (Same as: Humalog ) "Single Patient Use Only " WASTE: F/P - Black; E - Municipal Trash Bin Stable for 28 days at room temperature. Expires in days from _Date Glucagon 1 mg, Route: No Longer IM, Drug Active 2016 [facility] form: PDR/INJ, PRN, Dosing Weight 129, kg, PRN Blood Glucose Results, Start date: 06/20/17 12:07:00 CDT, Duration: 30 day, Stop date: 07/20/17 12:06:00 CDT Dextrose 50% 25 gm, 50 mL, No Longer Syringe Route: IVP, Active 2016 [facility] Drug Form: INJ, Dosing Weight 129, kg, PRN, PRN Blood Glucose Results, Start date: 06/20/17 12:07:00 CDT, Duration: 30 day, Stop date: 07/20/17 12:06:00 CDT Robaxin Notes: (Same Inactive as:Robaxin) 2016 Acetaminophen Notes: Do not Inactive 325 MG / exceed 2016 Hydrocodone 4gm/day of Bitartrate 10 MG acetaminophen Oral Tablet . (Same as: [Richton 10325] Richton 325/10) Dilaudid 1 mg, 1 mL, Inactive Route: IV, 2016 Drug form: INJ, Q3H, Dosing Weight 129, kg, PRN Pain Score 6-10, Start date: 06/20/17 12:02:00 CDT, Duration: 30 day, Stop date: 07/20/17 12:01:00 CDT Tramadol Notes: Not to No Longer exceed Active 2016 [facility] 400mg/day. (Same As: Ultram) Insulin regular Notes: (Same Inactive as: Humulin R 2016 and NovoLIN R) WASTE: F/P - Black; E - Municipal Trash Bin (Do not shake) Calcium Notes: WASTE: Inactive Gluconate F/P - Sink; E 2016 [facility] t - Municipal Trash Bin Sodium Notes: Inactive polystyrene (sodium 2016 sulfonate polystyrene sulfonate 15 gm/60 ml KEDAR) Shake well before use. (Same as: Kayexalate, SPS) Dextrose 50% 25 gm, 50 mL, Inactive Syringe Route: IVP, 2016 [facility] Drug Form: INJ, Dosing Weight 129, kg, ONCE, Start date: 06/20/17 11:14:00 CDT, Stop date: 06/20/17 11:14:00 CDT gabapentin 300 Notes: (Same Inactive MG Oral Capsule as: 2016 [facility] Neurontin) metoprolol Notes: (Same No Longer tartrate as: Active 2016 [facility] Lopressor) Morphine Notes: (Same Inactive as:MORPhine 2016 Sulfate) lisinopril 20 mg 20 mg = 1 Active oral tablet tab, PO, 2016 Daily, 0 Refill(s) Dilaudid 0.5 mg, 0.5 Inactive mL, Route: 2016 IVP, Drug form: INJ, Q4H, Dosing Weight 129, kg, PRN Pain Score 7-10, Start date: 06/20/17 5:10:00 CDT, Duration: 30 day, Stop date: 07/20/17 5:09:00 CDT Saline Flush Notes: (Same No Longer 0.9% as: BD Active 2016 [facility] Posiflush) sodium chloride 1,000 mL, No Longer 0.9% 1000 ml INJ Rate: 125 Active 2016 [facility] 1,000 mL ml/hr, Infuse over: 8 hr, Route: IV, Dosing Weight 129.545 kg, Total Volume: 1,000, Start date: 06/20/17 2:45:00 CDT, Duration: 30 day, Stop date: 07/20/17 2:44:00 CDT Ondansetron Notes: (Same No Longer as: Zofran) Active 2016 [facility] MEDICATION WASTE Product Size: 4 mg Product Wasted: ___ mg Morphine Notes: (Same Inactive as:MORPhine 2016 [facility] Sulfate) Acetaminophen Notes: Do not No Longer exceed [address] [facility] gm/day. (Same as: Tylenol) Morphine Notes: (Same No Longer as: MORPhine Active 2016 [place] Sulfate) Valium Notes: (Same No Longer as: Valium) Active 2016 [place] WASTE: F/P - Black; E - White/Blue sodium chloride 1,000 mL, No Longer 0.9% 1000 ml INJ Rate: 999 Active 2016 [place] and 1,000 mL ml/hr, Infuse over: 1 hr, Route: IV, Dosing Weight 129.545 kg, Total Volume: 1,000, Start date: 06/19/17 22:48:00 CDT, Duration: 30 day, Stop date: 07/19/17 22:47:00 CDT Benadryl Notes: (Same No Longer as: Benadryl) Active 2016 [place] Cefazolin in D5W not defined NA Active [place] 2.1 6.840.1 .874730.4. [id number] 68 Duexis TAKE 1 TABLET Oral Active 800-26.6 MG [place] 2.16.8 40.1 BY MOUTH 3 Oral .976031.4. TIMES A DAY 391..225 FOR 30 DAYS 68 Opana ER (Schedule II Oral Active 10 MG Oral [place] 2.16.84 0.1 Drug) TAKE 1 .159254.4. TABLET BY 391.11.225 MOUTH EVERY 68 12 HOURS FOR PAIN Gabapentin TAKE 1 TABLET Oral Active 800 MG Oral [place] 2.1 6.840.1 BY MOUTH 3 .443037.4. TIMES A DAY 391 FOR 30 DAYS 68 Cyclobenzaprine TK 1 T PO Q 8 Oral Active 10 MG Oral [place] 2.16.840.1 HCl H PRN MUSCLE .102430.4. SPASMS 68 Methocarbamol TAKE 1 TO 2 Oral Active 500 MG Oral [place] 2. 16.840.1 TABLETS BY .461154.4. MOUTH EVERY 8 391..225 HOURS 68 NEEDED FOR MUSCLE SPASM 5 DAYS Oxymorphone HCl (Schedule II Oral Active 5 MG Oral [place]za 2 .16.840.1 Drug) TAKE 1 .686180.4. TABLET BY 391.11.225 MOUTH EVERY 6 68 HOURS NEEDED FOR PAIN Hydrocodone-Acet (Schedule II Oral Active 10-325 MG [place] 2.16.840.1 aminophen Drug) TAKE 1 Oral .000260.4 . TABLET BY [id number] MOUTH EVERY 6 68 HOURS NEEDED FOR PAIN Meloxicam TK 1 T PO BID Oral Active 7.5 MG Oral Garza 2.16 .840.1 .739569.4. 68 Metformin HCl TK 1 T PO BID Oral Active 500 MG Oral Garza 2.16.840.1 .655351.4. 68 Atorvastatin TK 1 T PO QD Oral Active 20 MG Oral Garza 2.1 6.840.1 Calcium .717034.4. 68 Xarelto TK 1 T PO Q Oral Active 10 MG Oral Garza 2.16.840. 1 24 HOURS FOR .083161.4. 13 DAYS 68 Warfarin Sodium TK 1 T PO Oral Active 7.5 MG Oral Garza 2. 16.840.1 NIGHT BEFORE .233172.4. SURGERY 68 Lisinopril TK 1 T PO QD Oral Active 5 MG Oral Garza 2.16.8 40.1 .385171.4. 391 68 Rifampin 1 capsule PO Active 300 MG PO Garza 2.16.840.1 twice a day .861518.4. (bid) 391 68 Doxycycline 1 capsule Orally Active 100 MG Orally Garza 2.16 .840.1 Hyclate every 12 hrs .594587.4. 391 68 Keflex 1 tablet Orally Active 500 MG Orally Garza 2.16.840. 1 every 6 hrs .043905.4. 391 68 Allergies, Adverse Reactions, Alerts Substance Category Reaction Severity Reaction Status Date Comments S ource type Reported N.K.D.A. Adverse Info Not Adverse Active 2.16 .840 Reaction Available Reaction 7 .1.1 1388 [id number] No Known Assertion Drug Misch er Medication allergy Neuro Allergies Immunizations No Data Provided for This Section Results Order Name Results Value Reference Date Interpretation Comments Angelia rce Range CHEM PANEL eGFR 88 07/01 Result Comment: [facility] eGFR is calculated using the CKD-EPI formula. In most young, healthy individuals the eGFR will be >90 mL/min/1.73m2 . The eGFR declines with age. An eGFR of 60-89 may be normal in some populations, particularly the elderly, for whom the CKD-EPI formula has not been extensively validated. Use of the eGFR is not recommended in the following populations:< br/>
Shirley viduals with unstable creatinine concentration s, including patients and those with serious co-morbid conditions.<b r/>
Patie nts with extremes in muscle mass or diet.

The data above are obtained from the National Kidney Disease Education Program (NKDEP) which additionally recommends that when the eGFR is used in patients with extremes of body mass index for purposes of drug dosing, the eGFR should be multiplied by the estimated BMI. CHEM PANEL Potassium 4.2 3.5 - 5.1 07/01 [facility] CHEM PANEL Chloride Lvl 96 95 - 109 07/01 [facility] CHEM PANEL CO2 30 24 - 32 07/01 [facility] CHEM PANEL Calcium Lvl 8.8 8.5 - 10.5 09/ /2016 [facility] CHEM PANEL Glucose Lvl 235 70 - 99 09/ /2016 [facility] CHEM PANEL BUN 12 7 - 22 07/01 [facility] CHEM PANEL Creatinine 0.95 0.50 - 09/ MH Lvl 1.40 /2016 [facility] CHEM PANEL Sodium Lvl 135 135 - 145 07/01 /2016 [facility] CHEM PANEL AGAP 13.2 10.0 - 09 MH 20.0 /2016 [facility] HEMATOLOGY MCHC 32.6 32.0 - 09 MH 36.0 /2016 [facility] HEMATOLOGY MCH 26.3 27.0 - 09 MH 31.0 /2016 [facility] HEMATOLOGY MCV 80.5 80.0 - 07/01 MH 94.0 /2016 [facility] HEMATOLOGY Hct 31.2 42.0 - 07/01 MH 54.0 /2016 [facility] HEMATOLOGY Hgb 10.2 14.0 - 07/01 MH 18.0 /2016 [facility] HEMATOLOGY RBC 3.87 4.70 - 07/01 MH 6.10 /2016 [facility] HEMATOLOGY MPV 7.5 7.4 - 10.4 07/01 /2016 [facility] HEMATOLOGY Platelet 374 133 - 450 07/01 [facility] HEMATOLOGY RDW 14.7 11.5 - 07/[address] [facility] HEMATOLOGY WBC 4.9 3.7 - 10.4 07/01 [facility] HEMATOLOGY Eosinophils 0.2 0.0 - 0.5 / MH # /2016 [facility] HEMATOLOGY Monocytes # 0.2 0.0 - 0.8 07/01 [facility] HEMATOLOGY Basophils 0.7 0.0 - 1.0 07/01 [facility] HEMATOLOGY Eosinophils 3.8 0.0 - 4.0 07/01 [facility] HEMATOLOGY Monocytes 4.9 2.0 - 12.0 07/01 [facility] HEMATOLOGY Lymphocytes 1.4 1.0 - 5.5 07/01 MH # /2016 [facility] HEMATOLOGY Segs-Bands # 3.0 1.5 - 8.1 07/01 [facility] HEMATOLOGY Lymphocytes 29.4 20.0 - 07/01 MH 40.0 /2016 [facility] HEMATOLOGY Segs 61.2 45.0 - 07/01 MH 75.0 /2016 [facility] HEMATOLOGY RDW 14.5 11.5 - [address] [facility] HEMATOLOGY MPV 7.2 7.4 - 10.4 06/30 [facility] HEMATOLOGY Platelet 366 133 - 450 06/30 [facility] HEMATOLOGY Hct 29.3 42.0 - 06/[address] [facility] HEMATOLOGY RBC 3.59 4.70 - 06/[address] [facility] HEMATOLOGY Hgb 9.6 14.0 - 06/[address] [facility] HEMATOLOGY WBC 5.5 3.7 - 10.4 06/30 [facility] HEMATOLOGY MCHC 32.7 32.0 - 06/[address] [facility] HEMATOLOGY MCV 81.5 80.0 - 06/[address] [facility] HEMATOLOGY MCH 26.7 27.0 - 06/[address] [facility] HEMATOLOGY Lymphocytes 1.7 1.0 - 5.5 06/30 MH # /2016 [facility] HEMATOLOGY Monocytes # 0.3 0.0 - 0.8 06/30 [facility] HEMATOLOGY Eosinophils 0.2 0.0 - 0.5 06/[address] [facility] HEMATOLOGY Basophils 0.8 0.0 - 1.0 06/30 [facility] HEMATOLOGY Segs-Bands # 3.2 1.5 - 8.1 06/30 [facility] HEMATOLOGY Monocytes 5.9 2.0 - 12.0 06/30 [facility] HEMATOLOGY Eosinophils 3.0 0.0 - 4.0 06/30 [facility] HEMATOLOGY Lymphocytes 31.6 20.0 - 06/[address] [facility] HEMATOLOGY Segs 58.7 45.0 - 06/[address] [facility] CHEM PANEL eGFR 134 06/28 Result Comment: [facility] eGFR is calculated using the CKD-EPI formula. In most young, healthy individuals the eGFR will be >90 mL/min/1.73m2 . The eGFR declines with age. An eGFR of 60-89 may be normal in some populations, particularly the elderly, for whom the CKD-EPI formula has not been extensively validated. Use of the eGFR is not recommended in the following populations:< br/>
Shirley viduals with unstable creatinine concentration s, including patients and those with serious co-morbid conditions.<b r/>
Patie nts with extremes in muscle mass or diet.

The data above are obtained from the National Kidney Disease Education Program (NKDEP) which additionally recommends that when the eGFR is used in patients with extremes of body mass index for purposes of drug dosing, the eGFR should be multiplied by the estimated BMI. CHEM PANEL AGAP 10.3 10.0 - [address] [facility] CHEM PANEL Calcium Lvl 6.3 8.5 - 10.5 06/28 Result Comment: [facility] Critical Result(s) called to iSlvestre Chowdary at 06/28/2017 06:46 by nf. Read back OK. CHEM PANEL Glucose Lvl 99 70 - 99 06/28 [facility] CHEM PANEL Creatinine 0.54 0.50 - 06/28 MH Lvl 1.40 /2016 [facility] CHEM PANEL BUN 7 7 - 22 06/28 [facility] CHEM PANEL Chloride Lvl 113 95 - 109 06/28 [facility] CHEM PANEL Potassium 3.3 3.5 - 5.1 06/28 MH Lvl /2016 [facility] CHEM PANEL CO2 23 24 - 32 06/28 [facility] CHEM PANEL Sodium Lvl 143 135 - 145 06/28 [facility] HEMATOLOGY WBC 7.3 3.7 - 10.4 06/28 [facility] HEMATOLOGY RBC 3.18 4.70 - 06/[address] [facility] HEMATOLOGY Platelet 291 133 - 450 06/28 [facility] HEMATOLOGY RDW 14.7 11.5 - 06/[address] [facility] HEMATOLOGY MPV 7.5 7.4 - 10.4 06/28 [facility] HEMATOLOGY Hct 26.0 42.0 - 06/[address] [facility] HEMATOLOGY Hgb 8.5 14.0 - 06/[address] [facility] HEMATOLOGY MCV 81.9 80.0 - 06/[address] [facility] HEMATOLOGY MCH 26.8 27.0 - 06/[address] [facility] HEMATOLOGY MCHC 32.8 32.0 - 06/[address] [facility] HEMATOLOGY Basophils 0.5 0.0 - 1.0 06/28 [facility] HEMATOLOGY Monocytes # 0.3 0.0 - 0.8 06/28 /2016 [facility] HEMATOLOGY Lymphocytes 1.0 1.0 - 5.5 06/28 MH # /2016 [facility] HEMATOLOGY Segs-Bands # 5.9 1.5 - 8.1 06/28 [facility] HEMATOLOGY Eosinophils 0.1 0.0 - 0.5 09 # /2017 [facility] HEMATOLOGY Eosinophils 1.3 0.0 - 4.0 06/28 /2016 [facility] HEMATOLOGY Segs 80.5 45.0 - 06/28 MH 75.0 /2017 [facility] HEMATOLOGY Monocytes 3.9 2.0 - 12.0 06/28 /2016 [facility] HEMATOLOGY Lymphocytes 13.8 20.0 - 06/28 MH 40.0 /2017 [facility] BLOOD BANK ABO/Rh A POS 06/27 RESULTS /2016 [facility] BLOOD BANK Antibody Negative 06/27 RESULTS Scrn (06/27/17 9:20 AM) /[address] [facility] [address] CHEM PANEL Phosphorus 2.9 2.5 - 4.5 06/26 [facility] CHEM PANEL Magnesium 2.5 1.8 - 2.4 06/26 Lvl /2016 [facility] CHEM PANEL eGFR 95 06/26 Result Comment: [facility] eGFR is calculated using the CKD-EPI formula. In most young, healthy individuals the eGFR will be >90 mL/min/1.73m2 . The eGFR declines with age. An eGFR of 60-89 may be normal in some populations, particularly the elderly, for whom the CKD-EPI formula has not been extensively validated. Use of the eGFR is not recommended in the following populations:< br/>
Shirley viduals with unstable creatinine concentration s, including patients and those with serious co-morbid conditions.<b r/>
Patie nts with extremes in muscle mass or diet.

The data above are obtained from the National Kidney Disease Education Program (NKDEP) which additionally recommends that when the eGFR is used in patients with extremes of body mass index for purposes of drug dosing, the eGFR should be multiplied by the estimated BMI. CHEM PANEL CO2 28 24 - 32 06/26 [facility] CHEM PANEL Calcium Lvl 8.5 8.5 - 10.5 06/26 [facility] CHEM PANEL ALT 43 0 - 65 06/26 [facility] CHEM PANEL AST 26 0 - 37 06/26 [facility] CHEM PANEL Albumin Lvl 2.1 3.5 - 5.0 06/26 [facility] CHEM PANEL Total 7.2 6.4 - 8.4 09/07 MH Protein /2016 [facility] CHEM PANEL Bili Total 0.2 0.2 - 1.3 09 [facility] CHEM PANEL Alk Phos 237 39 - 136 09 [facility] CHEM PANEL Creatinine 1.00 0.50 - 09 MH Lvl 1.40 /2016 [facility] CHEM PANEL Sodium Lvl 136 135 - 145 06/26 [facility] CHEM PANEL Chloride Lvl 101 95 - 109 06/26 [facility] CHEM PANEL Potassium 4.1 3.5 - 5.1 09 MH Lvl /2016 [facility] CHEM PANEL BUN 9 7 - 22 06/26 [facility] CHEM PANEL Glucose Lvl 136 70 - 99 09 [facility] CHEM PANEL AGAP 11.1 10.0 - 09 MH 20.0 /2016 [facility] CHEM PANEL B/C Ratio 9 6 - 25 06/26 [facility] CHEM PANEL A/G Ratio 0.4 0.7 - 1.6 09 [facility] CHEM PANEL Globulin 5.1 2.7 - 4.2 06/26 [facility] HEMATOLOGY INR 1.12 0.85 - 06/26 MH 1.17 /2016 [facility] HEMATOLOGY PT 14.6 12.0 - 06/26 MH 14.7 /2016 [facility] HEMATOLOGY Basophils # 0.1 0.0 - 0.2 06/26 [facility] HEMATOLOGY Basophils # 0.1 0.0 - 0.2 06/24 [facility] CHEM PANEL Magnesium 2.7 1.8 - 2.4 06/[address] [facility] HEMATOLOGY Basophils # 0.1 0.0 - 0.2 06/23 [facility] CHEM PANEL Procalcitoni 1.56 0.00 - 06/22 n Lvl 0.10 /2016 [facility] TOXICOLOGY Vanco Tr 16.3 06/22 [facility] TOXICOLOGY Vanco Tr TND 00:00 06/22 [facility] CHEM PANEL Magnesium 2.6 1.8 - 2.4 06/[address] [facility] HEMATOLOGY Plt Morph Clumped 06/21 (06/21/17 4:49 AM) /[address] [facility] [address] HEMATOLOGY Sed Rate 97 0 - 15 06/21 [facility] CARDIAC Total CK 159 12 - 191 06/20 [facility] /2016 [facility] CARDIAC CK MB 0.8 0.5 - 3.6 06/20 [facility] /2016 [facility] CARDIAC Troponin-I <0.02 0.00 - 06/20 [facility] 0.40 /2016 [facility] CARDIAC CK MB Index 0.5 0.0 - 2.5 06/20 [facility] /2016 [facility] IMMUNOLOGY C-REACTIVE 134.0 <=2.9 mg/L 06/20 PROTEIN /2016 [facility] CARDIAC CK MB 0.9 0.5 - 3.6 06/20 [facility] /2016 [facility] CARDIAC Troponin-I <0.02 0.00 - 06/[address] [facility] CARDIAC Total CK 95 12 - 191 06/20 [facility] /2016 [facility] CARDIAC CK MB Index 0.7 0.0 - 2.5 06/20 [facility] /2016 [facility] CARDIAC CK MB 0.7 0.5 - 3.6 06/20 [facility] /2016 [facility] CARDIAC Troponin-I <0.02 0.00 - 06/[address] [facility] CARDIAC Total CK 105 12 - 191 06/[address] [facility] CHEM PANEL Bili Total 1.3 0.2 - 1.3 06/20 [facility] CHEM PANEL Alk Phos 167 39 - 136 06/20 [facility] CHEM PANEL A/G Ratio 0.7 0.7 - 1.6 06/20 [facility] CHEM PANEL ALT 55 0 - 65 06/20 [facility] CHEM PANEL AST 40 0 - 37 06/20 [facility] CHEM PANEL Globulin 4.9 2.7 - 4.2 06/20 [facility] CHEM PANEL Albumin Lvl 3.2 3.5 - 5.0 06/20 [facility] CHEM PANEL Total 8.1 6.4 - 8.4 06/[address] [facility] CHEM PANEL B/C Ratio 17 6 - 25 06/20 [facility] URINE AND UA Protein Negative Negative 06/20 STOOL (06/19/17 11:49 PM) /2016 [place] [facility] URINE AND UA pH 6.0 5.0 - 8.0 06/20 STOOL /2016 [facility] URINE AND UA Turbidity Clear Clear 06/20 STOOL (06/19/17 11:49 PM) /2016 [place] [facility] URINE AND UA Spec Grav <=1.005 <=1.030 06/20 [facility] *NA* /2017 [facility] (06/19/17 11:49 PM) URINE AND UA Color Yellow Yellow 06/20 [facility] *NA* /2016 [facility] (06/19/17 11:49 PM) URINE AND UA Bacteria None Seen None Seen 06/20 [facility] (06/19/17 11:49 PM) [place] [facility] URINE AND UA RBC None Seen 0 - 2 06/20 [facility] (06/19/17 11:49 PM) [place] [facility] URINE AND UA Nitrite Negative Negative 06/20 [facility] (06/19/17 11:49 PM) [place] [facility] URINE AND UA WBC 0-2 /HPF None Seen 06/20 [facility] /HPF /2016 [facility] URINE AND UA Sq Epi None Seen Few 06/20 [facility] (06/19/17 11:49 PM) /2016 [place] [facility] URINE AND UA Leuk Est Negative Negative 06/20 STOOL (06/19/17 11:49 PM) /2016 [place] [facility] URINE AND UA Blood Negative Negative 06/20 STOOL (06/19/17 11:49 PM) [place] [facility] URINE AND UA 0.2 0.1 - 1.0 06/20 [facility] Urobilinogen /2016 [facility] URINE AND UA Ketones Negative Negative 06/20 [facility] *NA* /2016 [facility] (06/19/17 11:49 PM) URINE AND UA Bili Negative Negative 06/20 [facility]OOL *NA* /2016 [facility] (06/19/17 11:49 PM) URINE AND UA Glucose Negative Negative 06/20 [facility]OOL (06/19/17 11:49 PM) [place] CHEM PANEL B/C Ratio 17 6 - 25 06/20 [facility] CHEM PANEL Globulin 5.3 2.7 - 4.2 06/20 [facility] CHEM PANEL A/G Ratio 0.6 0.7 - 1.6 06/20 [facility] CHEM PANEL AGAP 9.5 10.0 - 06/20 MH 20.0 [facility] CHEM PANEL ASPARTATE 12 0 - 37 06/20 [facility] CHEM PANEL eGFR 86 06/20 Result Comment: [facility] eGFR is calculated using the CKD-EPI formula. In most young, healthy individuals the eGFR will be >90 mL/min/1.73m2 . The eGFR declines with age. An eGFR of 60-89 may be normal in some populations, particularly the elderly, for whom the CKD-EPI formula has not been extensively validated. Use of the eGFR is not recommended in the following populations:< br/>
Shirley viduals with unstable creatinine concentration s, including patients and those with serious co-morbid conditions.<b r/>
Patie nts with extremes in muscle mass or diet.

The data above are obtained from the National Kidney Disease Education Program (NKDEP) which additionally recommends that when the eGFR is used in patients with extremes of body mass index for purposes of drug dosing, the eGFR should be multiplied by the estimated BMI. CHEM PANEL Bili Total 0.4 0.2 - 1.3 06/20 [facility] CHEM PANEL Total 8.5 6.4 - 8.4 06/20 [facility] CHEM PANEL Chloride Lvl 94 95 - 109 06/20 [facility] CHEM PANEL CO2 30 24 - 32 06/20 [facility] CHEM PANEL Calcium Lvl 8.8 8.5 - 10.5 06/20 [facility] CHEM PANEL ALANINE 48 0 - 65 06/20 [facility] CHEM PANEL Albumin Lvl 3.2 3.5 - 5.0 06/20 [facility] CHEM PANEL Alk Phos 150 39 - 136 06/20 [facility] CHEM PANEL Potassium 4.5 3.5 - 5.1 06/20 [facility] Lvl [facility] CHEM PANEL BUN 19 7 - 22 06/20 [facility] CHEM PANEL Glucose Lvl 260 70 - 99 06/20 [facility] CHEM PANEL Creatinine 1.09 0.50 - 06/20 MH Lvl 1.40 [facility] CHEM PANEL Sodium Lvl 129 135 - 145 06/20 [facility] HEMATOLOGY RBC Morph Normal 06/20 (06/19/17 11:31 PM) [place] and HEMATOLOGY Plt Morph Normal 06/20 (06/19/17 11:31 PM) [place] [facility] HEMATOLOGY Segs 74.0 45.0 - 06/20 MH 75.0 [facility] HEMATOLOGY Segs-Bands # 12.6 1.5 - 8.1 06/20 [facility] HEMATOLOGY Monocytes 5.0 2.0 - 12.0 06/20 [facility] HEMATOLOGY Lymphocytes 13.0 20.0 - 06/20 MH 40.0 /2016 [facility] HEMATOLOGY Bands 7.0 0.0 - 11.0 06/20 MH /2016 [facility] HEMATOLOGY Metamyelocyt 1.0 0.0 - 1.0 06/20 MH es /2016 [facility] HEMATOLOGY Monocytes # 0.8 0.0 - 0.8 06/20 /2016 [facility] HEMATOLOGY Lymphocytes 2.0 1.0 - 5.5 06/20 MH # /2016 [facility] HEMATOLOGY Hct 37.7 42.0 - 06/20 MH 54.0 /2016 [facility] HEMATOLOGY MCV 80.7 80.0 - 06/20 MH 94.0 /2016 [facility] HEMATOLOGY MCHC 32.5 32.0 - 06/20 MH 36.0 /2016 [facility] HEMATOLOGY MCH 26.2 27.0 - 06/20 MH 31.0 /2016 [facility] HEMATOLOGY RDW 14.3 11.5 - 06/20 MH 14.5 [facility] HEMATOLOGY MPV 7.9 7.4 - 10.4 06/20 [facility] HEMATOLOGY Platelet 326 133 - 450 06/20 [facility] HEMATOLOGY Hgb 12.2 14.0 - 06/20 MH 18.0 [facility] HEMATOLOGY RBC X 10x6 4.67 4.70 - 06/20 MH 6.10 /2016 [facility] HEMATOLOGY WBC X 10x3 15.5 3.7 - 10.4 06/20 [facility] MOLECULAR Streptococcu Not Detected Not 06/20 DIAGNOSTIC s spp. (06/19/17 11:31 PM) Detected [facility] [place] MOLECULAR Shirley Not Detected Not 06/20 DIAGNOSTIC Vancomycin (06/19/17 11:31 PM) Detected [facility] Resistance MOLECULAR Listeria Not Detected Not 06/20 DIAGNOSTIC spp. (06/19/17 11:31 PM) Detected [place] MOLECULAR mecA Not Detected Not 06/20 DIAGNOSTIC Methicillin (06/19/17 11:31 PM) [facility] Resistance MOLECULAR vanB Not Detected Not 06/20 DIAGNOSTIC Vancomycin (06/19/17 11:31 PM) Detected [facility] Resistance MOLECULAR E. faecium Not Detected Not 06/20 DIAGNOSTIC (06/19/17 11:31 PM) [place] MOLECULAR Staphylococc Detected Not 06/20 DIAGNOSTIC us spp. *ABN* Detected [facility] (06/19/17 11:31 PM) MOLECULAR S. Not Detected Not 06/20 DIAGNOSTIC lugdunensis (06/19/17 11:31 PM) Detected [facility] MOLECULAR S. Not Detected Not 06/20 DIAGNOSTIC epidermidis (06/19/17 11:31 PM) Detected [facility] MOLECULAR S. aureus Detected Not 06/20 DIAGNOSTIC *ABN* Detected [facility] (06/19/17 11:31 PM) MOLECULAR S. Not Detected Not 06/20 DIAGNOSTIC pneumoniae (06/19/17 11:31 PM) Detected [facility] MOLECULAR E. faecalis Not Detected Not 06/20 DIAGNOSTIC (06/19/17 11:31 PM) Detected [place] MOLECULAR S. Not Detected Not 06/20 DIAGNOSTIC agalactiae (06/19/17 11:31 PM) [facility] MOLECULAR S. anginosus Not Detected Not 06/20 DIAGNOSTIC grp (06/19/17 11:31 PM) [facility] S. pyogenes Not Detected Not 06/20 DIAGNOSTIC (06/19/17 11:31 PM) Detected [place] Pathology Reports No Data Provided for This Section Diagnostic Reports Report Value Date Source Spine lumbar myelogram CT EXAM: CT MYELOGRAM THORACIC SPINE 08/20 [facility] EXAM: CT MYELOGRAM LUMBAR SPINE DATE: 09/05/2017 8:49 AM [facility] [employer] INDICATION: Epidural abscess. Follow-up. COMPARISON: MRI spine dated 06/25/2017 TECHNIQUE: Helical acquisiti on of the thoracic and lumbar spine was obtained following the intrathecal administration of contrast. No intravenous contrast was administered. Reformatted axial, coronal, a nd sagittal images were prov ided for review. CT Radiation Dose: DLP = 2145 mGy-cm. FINDINGS: CT THORACIC SPINE: The normal thoracic kyphosis is preserved. No abnormalities in sagittal alignment are identified. The vertebral body disc space heights are maintained throughout the thoracic spine. Degenerative changes within the lower cervical s pine are partially visualized. There is a shallow right paracentral disc protrusion at the T8-T9 without spinal canal stenosis, best characterized on series 3 image 80. Postsurgical changes related to a left hemilaminectomy at T11-T12 have been performed, with evacuation of previously described epidural abscess. No residual epidural fluid collection or mass effect on t he spinal canal is identifie d at this time. The thoracic cord demonstrates a normal caliber. The spinal canal is congenitally narrowed. No intraspinal soft tissue masses are present. A small surgical sc ar is noted within the poste rior subcutaneous tissues without evidence for a seroma. The paraspinal musculature appears grossly unremarkable. CT LUMBAR SPINE: The normal lumbar lordosis i s preserved. No abnormalities in sagittal alignment are identified. The vertebral body heights are maintained throughout the lumbar spine without evidence for fracture. Postsurgical changes are not ed within the lower lumbar spine, with paired transpedicular screws noted at L4-L5 and L5-S1, stabilized by vertical rods. Intervertebral disc spacers as well as an anterior cortical screw within the up per sacrum are also visualized. Partial ankylosis across the L4-L5 and L5-S1 disc space is noted. The spinal canal is congenit ally narrowed. Moderate to severe spinal canal stenosis is noted at L3-L4, likely secondary to the presence of a right-sided synovial cyst, facet arthropathy, and hypertrophy of the ligamentum flavum at this level, series 3 image 49. Mild bilateral neural foraminal stenosis is noted at L4-L5. Moderate to severe left and moderate right neural foraminal stenosis present at L5 -S1. No other areas of signi ficant spinal canal or neural foraminal stenosis are present throughout the lumbar spine. Mild subcutaneous edema is p resent within the posterior soft tissues. Minimal atherosclerotic calcification of the aorta and common iliac arteries is noted without aneurysmal dilatation. Degenerative ch anges of the sacroiliac join ts are visualized. A bone island is noted within the right greater iliac wing. IMPRESSION: 1. Interval postsurgical maría nges related to a left hemilaminectomy at T11-T12 with evacuation of the previously epidural abscess. No residual epidural fluid collection or mass effect on the thoracic cord is visualized. 2. Moderate to severe spinal canal stenosis at L3-L4, predominantly secondary to a right-sided synovial cyst and hypertrophy of the ligamentum flavum. Findings are superimposed on a congenitally narrowe d spinal canal although no o ther areas of significant spinal canal stenosis are present. 3. Mild bilateral neural for aminal stenosis at L4-L5 as well as moderate to severe left and moderate right neural foraminal stenosis at L5-S1. Lower lumbar fusion and posterior stabilization appears satisfactory. SL: [id number] Spine thoracic myelogram EXAM: CT MYELOGRAM THORACIC SPINE 09/05 [facility] [address] EXAM: CT MYELOGRAM LUMBAR SPINE DATE: 09/05/2017 8:49 AM [facility] INDICATION: Epidural abscess. Follow-up. COMPARISON: MRI spine dated 06/25/2017 TECHNIQUE: Helical acquisiti on of the thoracic and lumbar spine was obtained following the intrathecal administration of contrast. No intravenous contrast was administered. Reformatted axial, coronal, a nd sagittal images were prov ided for review. CT Radiation Dose: DLP = 2145 mGy-cm. FINDINGS: CT THORACIC SPINE: The normal thoracic kyphosis is preserved. No abnormalities in sagittal alignment are identified. The vertebral body disc space heights are maintained throughout the thoracic spine. Degenerative changes within the lower cervical s pine are partially visualized. There is a shallow right paracentral disc protrusion at the T8-T9 without spinal canal stenosis, best characterized on series 3 image 80. Postsurgical changes related to a left hemilaminectomy at T11-T12 have been performed, with evacuation of previously described epidural abscess. No residual epidural fluid collection or mass effect on t he spinal canal is identifie d at this time. The thoracic cord demonstrates a normal caliber. The spinal canal is congenitally narrowed. No intraspinal soft tissue masses are present. A small surgical sc ar is noted within the poste rior subcutaneous tissues without evidence for a seroma. The paraspinal musculature appears grossly unremarkable. CT LUMBAR SPINE: The normal lumbar lordosis i s preserved. No abnormalities in sagittal alignment are identified. The vertebral body heights are maintained throughout the lumbar spine without evidence for fracture. Postsurgical changes are not ed within the lower lumbar spine, with paired transpedicular screws noted at L4-L5 and L5-S1, stabilized by vertical rods. Intervertebral disc spacers as well as an anterior cortical screw within the up per sacrum are also visualized. Partial ankylosis across the L4-L5 and L5-S1 disc space is noted. The spinal canal is congenit ally narrowed. Moderate to severe spinal canal stenosis is noted at L3-L4, likely secondary to the presence of a right-sided synovial cyst, facet arthropathy, and hypertrophy of the ligamentum flavum at this level, series 3 image 49. Mild bilateral neural foraminal stenosis is noted at L4-L5. Moderate to severe left and moderate right neural foraminal stenosis present at L5 -S1. No other areas of signi ficant spinal canal or neural foraminal stenosis are present throughout the lumbar spine. Mild subcutaneous edema is p resent within the posterior soft tissues. Minimal atherosclerotic calcification of the aorta and common iliac arteries is noted without aneurysmal dilatation. Degenerative ch anges of the sacroiliac join ts are visualized. A bone island is noted within the right greater iliac wing. IMPRESSION: 1. Interval postsurgical maría nges related to a left hemilaminectomy at T11-T12 with evacuation of the previously epidural abscess. No residual epidural fluid collection or mass effect on the thoracic cord is visualized. 2. Moderate to severe spinal canal stenosis at L3-L4, predominantly secondary to a right-sided synovial cyst and hypertrophy of the ligamentum flavum. Findings are superimposed on a congenitally narrowe d spinal canal although no o ther areas of significant spinal canal stenosis are present. 3. Mild bilateral neural for aminal stenosis at L4-L5 as well as moderate to severe left and moderate right neural foraminal stenosis at L5-S1. Lower lumbar fusion and posterior stabilization appears satisfactory. SL: [id number] Spine thoracic myelogram Patient Name: MARIA ESTHER CHAUDHARY [facility] DX : 1960; Age: 56 years y/o Male MR: [id number] PROCEDURE: Fluoroscopically guided lumbar puncture and contrast injection for thoracic and lumbar CT myelography. PHYSICIAN PROVIDING SERVICE: Bob Posey M.D. HISTORY: Back pain, 606.2, epidural abscess. CONSENT: The procedure, risk s, benefits and alternatives were discussed with the patient and written informed consent was obtained. TECHNIQUE: Preliminary fluoroscopy of t he lumbar region was performed. A suitable location at L3-L4 was chosen. A generous portion of the jocelyne mbar region was prepped with Betadine and draped. The procedure was performed under local anesthesia utilizing 1% lidocaine. A 20- gauge spinal needle was advanced into the l umbar spinal canal under fl uoroscopic guidance at the L3-L4 level through a laminectomy defect. Following backflow spinal fluid, approximately 15 mL of Omnipaque 180 was injected into the lumbar thecal sac under careful fluorosco pic guidance. The needle was then removed without difficulty. The fluoroscopy time was: 78 seconds. Radiation dose: 84 mGy. The patient tolerated the pr ocedure well and suffered no immediate complications. The patient was then transferred to the CT suite for CT myelography. IMPRESSION: Fluoroscopically guided lumbar puncture and contrast injection for CT myelography. Please refer to a separate CT myelogram report. SL: [id number] Spine lumbar myelogram DX The results of this study we re reported on accession number . Please refer to that report. 09/05/2017 [facility] Chest 2 views DX Study: Chest 2 views DX 07/14/2017 Beatriz alexandra Clinical Indication: - Z09 Encounter for follow-up examination after completed treatment for conditions other than malignant neoplasm Comparison: Chest x-ray from 06/27/2017 FINDINGS: Multiple surgical skin brad overlie the upper anterior chest. Overlying surgical drain is seen. Left-sided PICC line is stable. Cardiac silhouette is normal in size. Lungs are without conso lidation or congestion. No p leural effusion or pneumothorax is seen. The osseous structures are unremarkable. IMPRESSION: No acute cardiopulmonary disease. Recent postoperative changes of the upper chest. SL: [id number] Chest 1view DX Patient Name: MARIA ESTHER CHAUDHARY 06/27/2017 [facility] : 1960; Age: 56 years y/o Male MR: [id number] Study: Chest 1view DX 06/27/2017 1:43 PM CDT Ordering Physician: Olayinka Johnson MD Clinical Indication: - sternoclavicular debride ment; Comparison: 06/26/2017 1 view chest IMPRESSION: Skin brad overlie the lower thoracic midline. There is mild dependent pulmonary atelectasis, l ow lung volumes. No pleural effusion or pneumothorax. Cardiomediastinal silhouette is stable from previous. Left arm PICC terminates at the SVC. SL: [id number] Chest w contrast CT EXAM: CT CHEST WITH CONTRAST 06/26/2017 [facility] DATE: 06/26/2017 3:26 PM CDT INDICATION: Right sternoclavicular swelling. COMPARISON: 06/21/2017. TECHNIQUE: Helical CT imagin g of the chest was performed from thoracic inlet through the lung bases following the administration of intravenous contrast. Axial, sagittal and coronal multiplanar reconstructions provided. IV contrast: [address] Radiation Dose : DLP = 845.74 mGy-cm FINDINGS: LUNGS AND PLEURA: Small bila teral pleural effusions with airspace consolidation of the lower lobes is noted. No pneumothorax or suspicious pulmonary masses are visualized. AIRWAY: Right posterolateral tracheal diverticul um, series 2 image 10. SYSTEMIC VESSELS: The thorac ic aorta is normal in caliber without dissection or aneurysm. The great vessels appear unremarkable. A left PICC is noted in appropriate position. HEART: The cardiac chambers are unremarkable. There is no pericardial effusion. MEDIASTINUM: There is redemo nstration of abnormal retrosternal soft tissue density, similar appearance to previous examination. No drainable fluid collections are visualized at this time. VISUALIZED UPPER ABDOMEN: Th e visualized upper abdomen is within normal limits. OSSEOUS STRUCTURES: Degenera tive changes are noted at the costochondral junction bilaterally. No significant degenerative change of the sternoclavicular joints is noted. Known epidural fluid collection is better characterized on prior MRI spine. SOFT TISSUE: Moderate inflam matory change within the right anterior chest wall adjacent to the pectoralis major muscle. Enlargement of the right pectoralis major muscle with a possible developing fluid collection is noted. A subce ntimeter nodule is noted within the left thyroid gland. IMPRESSION: 1. Moderate inflammatory maría nge within the right anterior chest wall associated with enlargement of the right pectoralis major muscle with a possible small developing fluid collection. Follow-up with ultrasound is recommended. 2. Additional extension of i nflammatory change versus hemorrhage into the retrosternal soft tissues, similar in appearance to prior exam. 3. Small bilateral pleural e ffusions with nonenhancing airspace consolidation of the lower lobes, which may represent compressive atelectasis or pneumonia. 4. Known epidural fluid basim ection within the spinal canal is better characterized on magnetic resonance imaging. 5. Degenerative changes of t he costochondral junction anteriorly. Sternoclavicular joints are unremarkable. 6. Left PICC in appropriate position. 7. Right posterolateral tracheal diverticulum. 8. Subcentimeter left thyroid nodule. SL: [id number] Biopsy with ultrasound Patient Name: MARIA ESTHER CHAUDHARY 06/26/2017 [facility] guidance VR : 1960; Age: 56 years Male MR: [id number] Study: Biopsy with ultrasound guidance VR 06/26/20 17 2:37 PM CDT PROCEDURE: Ultrasound-guided aspiration of a right periclavicular fluid collection. CLINICAL INFORMATION: Right periclavicular eryth vladimir and swelling COMPARISON: CT chest on 06/21/2017 CONSENT: The procedure, risk s, benefits and alternatives were discussed with the patient and written informed consent was obtained. TECHNIQUE: circle shear operator: Dr. Gilbert Preoperative diagnosis: Right periclavicular radha thema and swelling Postoperative diagnosis: Same Estimated blood loss: Minimal Pain control: 1% lidocaine was administered for local anesthesia. The patient was placed in a supine position on the stretcher. Preprocedure ultrasound demonstrated a small fluid collection (approximately 1.5 x 1.5 cm) anterior to the right clavicular head. The right anterior chest wall was pre pped and draped with sterile technique and the skin was anesthetized with 1% lidocaine. Under sterile ultrasound henri dance, an 18-gauge needle was advanced into the right periclavicular fluid collection and approximately 10 mL of purulent fluid was aspirated. The needle was removed and sterile dressing applied. Postprocedure imaging demons trated no immediate complication. Patient tolerated the procedure well and transferred to the floor in stable condition. IMPRESSION: Successful ultrasound-guided aspiration of a right periclavicular fluid collection. SL: [id number] Chest 1view DX Study: Chest 1view DX 06/26/2017 1:24 PM CDT 06/26 [facility] Patient Name: MARIA ESTHER CHAUDHARY MR: [id number] : 1960; Age: 56 years y/o Male Ordering Physician: Daron Bartholomew DO Clinical Indication: - STAT portable Chest X-ray post successful insertion. Indication: Correct Line Placement. Comparison: None FINDINGS LUNGS: The lungs are clear o f consolidation, pleural effusion, and pneumothorax. Mild left basilar subsegmental atelectasis and scarring. The right hemidiaphragm is mildly elevated. HEART AND MEDIASTINUM: Normal size heart. LINES: Left PICC central samanta ous catheter tip overlying the atriocaval junction. OSSEOUS STRUCTURES: No fract ure, dislocation, or suspicious focal osseous lesion. OTHER: None. IMPRESSION: 1. Left PICC line tip overlying the atriocaval junction. [facility]: [facility] Patient Name: MARIA ESTHER CHAUDHARY 7 [facility] : 1960; Age: 56 years y/o Male MR: [id number] Study: Sternoclavicular joint DX 06/26/2017 12:42 PM CDT Ordering Physician: Olayinka Johnson MD Clinical Indication: Other- See Note to Radiologist - CT guided or ultrasound guided aspiration of right sternoclavicular joint; Comparison: None 3 spot radiographic images of the right sternocl avicular joint are submitted. The radiographic images demo nstrate no significant joint space widening, periarticular erosion or demineralization. There is mild subsegmental a telectasis in the left lung base. Lung hadley appear otherwise clear. Cardiomegaly. Left arm PICC terminates at the SVC. IMPRESSION: Radiographically unremarkable. SL: [id number] Spine entire w/wo contrast Patient Name: MARIA ESTHER CHAUDHARY 06/25/20 17 [facility] MRI : 1960; Age: 56 years y/o Male MR: [id number] Study: Spine entire w/wo contrast MRI 06/25/2017 1 0:50 AM CDT Ordering Physician: Daron Bartholomew DO Comparison: None Clinical Indication: PAIN WI TH LEUKOCYTOSIS. POSSIBLE ABCESS. - Per pt c/o [...] is noted. No abnormal contrast enhancement is note d. Mild cervical spondylosis. No acute disc herniation is noted. Bilateral neural foraminal stenosis at C3-C4, C4-C5 and C5-C6. Thoracic spine:Sagittal T2, fat-suppressed T2, T1 and axial T2 weighted images were obtained. Postcontrast fat-suppressed axial and sagittal T1-weighted images were obtained. Epidural fluid collection w ith cystic loculations is no shanelle extending from the level of T3 to [...] An area of edema and enhancement is no shanelle at the right side of the dorsal deep thoracic subcutaneous fat at the superior thorax (series 53, image 1). Thoracic vertebral body heights and interspaces are well-maint ained. There is no abnormal signal within the disc space to suggest thoracic discitis. Lumbar spine: Sagittal T2, f at-suppressed T2, T1 and axial T2-weighted images were obtained.Postcontrast fat-suppressed axial and sagittal T1-weighted images were obtained. Interbody fusion is present a t L4-L5 and L5-S1. Lumbar ve rtebral body heights and interspaces are otherwise well-maintained. Conus and cauda equina are unremarkable. Magnetic susceptibility artifact related to pedicular karissa and scr ew fixation at the lower lum bar spine is noted. This is accentuated on the fat- suppressed images. The caudal aspect of the epidural abscess extends to the level of T11-T12. There is edema and enhancemen t in the paraspinous soft ti ssues adjacent to the lamina and spinous processes at T12 and L1. Edema at the deep lumbar subcutaneous fat in the midline is noted extending from L1 to L4. Moderate central spinal stenosis at L2-L3. Mo derate to moderately severe central spinal stenosis at L3-L4 with small right-sided synovial cyst. Bilateral laminectomy defects are noted at L4-L5 and L5-S1. No acute disc h erniation is noted. No epidu ral or paraspinous fluid or mass is noted at the lumbar spine. IMPRESSION: 1.Epidural fluid collection with cystic loculations is noted extending from the level of T3 to the level of T11-T12 dorsally demonstrating enhancement consistent with an epidural abscess. There is ventr al displacement of the thora cic cord from T9 to T11 with mild cord compression at this segmental level. 2.There is edema and enhance ment of the paraspinous muscles adjacent to the lamina and spinous process from T10 to L1. 3. Edema at the deep lumbar subcutaneous fat in the midline is noted extending from L1 to L4. 4.Bilateral neural foraminal stenosis at C3-C4, C4-C5 and C5-C6. 5. Postoperative changes are noted at L4-L5 and L5-S1. 6.Moderate central spinal st enosis at L2-L3. Moderate to moderately severe central spinal stenosis at L3-L4 with small right-sided synovial cyst. 7. No findings for discitis. 8.An area of edema and enhan cement is noted at the right side of the dorsal deep thoracic subcutaneous fat at the superior thorax (series 53, image 1). Note: Critical findings called to,Dr. Bartholomew, on at 4:50 PM. SL: [id number] Ext Upper Venous Doppler US [facility]: Right arm swelling Comments: Real-time grayscale, color a nd pulse Doppler imaging of the right upper extremity veins was obtained. The right internal jugular v ein, axillary vein, brachial, basilic and cephalic veins are normally compressible with expected venous waveforms. The subclavian vein is patent with color-flow and expected venous waveform. No evidence of deep vein thrombosis in the upper extremity veins. Impression: No deep vein thrombosis in the right upper extre mity veins. Chest wo contrast CT CT STERNOCLAVICULAR JOINTS W ITHOUT CONTRAST WITH SAGITTAL AND CORONAL REFORMATTED IMAGES 06/21/2017 [facility] HISTORY: ; - Request CAT scan right and left sternoclavicular; COMPARISON: Right clavicle r adiography dated 06/20/2017 and right shoulder radiography dated 06/19/2017 FINDINGS: The bilateral sternoclavicul ar joints are normal without significant degenerative arthritic joint space narrowing, sclerosis, or osteophytosis. No osseous erosions are seen to suggest inflammatory arthr itis. There is no right or l eft sternoclavicular dislocation or subluxation. No fracture is seen. No aggressive osseous lesion. There is mild retrosternal s tranding and hemorrhage density infiltrating fluid, asymmetrically greater on the right at the level of the sternoclavicular joints, which is most compatible with mild retros ternal hematoma/soft tissue contusion. Mediastinitis is not excluded (axial series 2 images 25 and 29). No discrete loculated fluid collection is seen in the visualized portion of the chest suggest drainable abscess, seroma, or hematoma. Visualized lung apices clear. IMPRESSION: 1. No fracture, dislocation, subluxation, erosion, or arthritic changes of the sternoclavicular joints. 2. Mild retrosternal strandi ng and hemorrhage-density infiltrating fluid in the anterior mediastinum at the level of the sternoclavicular joints which is asymmetric to the right and incompletely visuali zed. The appearance suggests mild retrosternal hemorrhage. Mediastinitis not excluded. Correlation with clinical history is required. Recommend CT thorax for complete mediastinal evaluation. Findings reported to the [facility]'s nurse Massiel on the floor at time of dictation. The nurse was asked to inform the patient's physician. SL: [id number] Clavicle DX Patient Name: MARIA ESTHER CHAUDHARY 06/20/2017 [facility] : 1960; Age: 56 years y/o Male MR: [id number] Study: Clavicle DX 06/20/2017 12:52 PM CDT Ordering Physician: Olayinka Johnson MD Clinical Indication: - pain and bulge by the st ernalclavicular joint; Comparison right shoulder 06/19/2017. Right clavicle 2 views No clavicular fracture, subluxation or lesion is evident radiographically. SL: [id number] Spine lumbar wo contrast CT LUMBAR SPINE 06/19/[address] [facility] [address] (ER) Study: CT lumbar spine without contrast. History: Back pain. Comments: Lumbar spine CT [...] No acute fractures or subluxations in the lum bar spine. 2. Postoperative and degenerative changes in the lower lumbar spine. Shoulder series DX Study: 3 views of right shoulder joint. 06/19 [facility] History: Right arm pain Comments: Normal bone mineralization. No acute fracture or dislocation. Visualized right lung and right ribs are within normal limits. IMPRESSION: No acute fracture or dislocation. Spine lumbar wo contrast Name: MARIA ESTHER CHAUDHARY 06/02/2015 [facility] : 1960 Ordering Physician: Physician, Non Spine lumbar wo contrast MRI : Jun 02, 2015 12:4 9:00 PM. CLINICAL INDICATION: 724.2 REASON FOR EXAM: general anesthesia Comparison Examination: None. TECHNIQUE: Multiplanar T1, T2 and STIR MR images of the lumbar spine are performed on a 1.5 Dejah magnet. FINDINGS: Five nonrib-bearing lumbar type vertebrae are as sumed. Postoperative changes of an anterior interbody fusion and posterior fusion are seen at the levels of L4-L5 and L5-S1. Bilateral intrapedicle screws are seen at the levels of L4, L5 and S1 attached to ro ds. Expected postoperative a lignment is present. No evidence of spondylolisthesis or spondylolysis is seen. The visualized disc spaces are within normal limits. The signal within the disc spaces is norm al for age. The bone marrow signal shows normal signal for age.There are no fractures or compression deformities. The conus terminates at L1/2 . There is no abnormal signal within the distal cord, cauda equina or within the CSF. The anterior and posterior paraspinal soft tissu es are unremarkable. T12-L1: No extradural abnorm ality is seen. No narrowing of spinal canal or the neural foramina is seen. L1-2: No extradural abnormal ity is seen. No narrowing of spinal canal or the neural foramina is seen. Mild bilateral facet arthropathies are seen L2-3: No extradural abnormal ity is seen. No narrowing of spinal canal or the neural foramina is seen. L3-4: No extradural abnormal ity is seen. Intracanalicular lipomatosis is seen narrowing [...] and the neural foramina. L5-S1: Osteophytic ridging i s seen mildly indenting the dural sac. No narrowing of the spinal canal is seen. The facets are obscured by the screws and rods. Significant narrowing of the left neural fora men is suggested. Part of th e neural foramen is secured by artifact. Mild narrowing of the right neural foramen is seen. IMPRESSION: 1. Postoperative changes are seen of an anterior and posterior interbody fusion at the levels of L4-L5 and L5-S1. 2. Narrowing of the neural foramina is seen as d escribed above. 3. Mild spinal stenosis is seen at the level of L3-L4. SL: TW OPID 54 Consultation Notes No Data Provided for This Section Discharge Summaries No Data Provided for This Section History and Physicals No Data Provided for This Section Vital Signs Vital Sign Value Date Comments Source Weight 274 10/02/2017 2.16.840.1.1138 83. 4.391.11.61358 Height 79 10/02/2017 2.16.840.1.1138 83. 4.391.11.73934 Temperature Oral (F) 97.6 F 10/02/2017 2.16.84 0.1.807711. 4.391.11.16261 Heart Rate 75 10/02/2017 2.16.840.1.1138 83. 4.391.11.37962 Diastolic (mm Hg) 76 10/02/2017 2.16.840.1 .878597. 4.391.11.94207 Systolic (mm Hg) 121 10/02/2017 2.16.840.1. 463164. 4.391.11.14718 Weight 123.381 09/18/2017 [facility] BMI Calculated 30.64 09/18/2017 [facility] Height 200.66 cm 09/18/2017 [facility] Weight 271 09/09/2017 2.16.840.1.1138 83. 4.391.11.55042 Height 79 09/09/2017 2.16.840.1.1138 83. 4.391.11.11279 Temperature Oral (F) 98.2 F 09/09/2017 2.16.84 0.1.182378. 4.391.11.29894 Heart Rate 80 09/09/2017 2.16.840.1.1138 83. 4.391.11.05174 Diastolic (mm Hg) 66 09/09/2017 2.16.840.1 .008522. 4.391.11.53255 Systolic (mm Hg) 122 09/09/2017 2.16.840.1. 454180. 4.391.11.26202 Weight 271 08/19/2017 2.16.840.1.1138 83. 4.391.11.00104 Height 79 08/19/2017 2.16.840.1.1138 83. 4.391.11.58337 Temperature Oral (F) 97.9 F 08/19/2017 2.16.84 0.1.770647. 4.391.11.14994 Heart Rate 76 08/19/2017 2.16.840.1.1138 83. 4.391.11.41578 Diastolic (mm Hg) 76 08/19/2017 2.16.840.1 .045568. 4.391.11.36110 Systolic (mm Hg) 127 08/19/2017 2.16.840.1. 336035. 4.391.11.40877 Weight 271 08/12/2017 2.16.840.1.1138 83. 4.391.11.01194 Height 79 08/12/2017 2.16.840.1.1138 83. 4.391.11.25124 Temperature Oral (F) 98.1 F 08/12/2017 2.16.84 0.1.718770. 4.391.11.01933 Heart Rate 81 08/12/2017 2.16.840.1.1138 83. 4.391.11.68937 Diastolic (mm Hg) 78 08/12/2017 2.16.840.1 .390028. 4.391.11.57578 Systolic (mm Hg) 128 08/12/2017 2.16.840.1. 790648. 4.391.11.15404 Weight 271 08/05/2017 2.16.840.1.1138 83. 4.391.11.62743 Height 79 08/05/2017 2.16.840.1.1138 83. 4.391.11.74814 Temperature Oral (F) 978 F 08/05/2017 2.16.84 0.1.211992. 4.391.11.75098 Heart Rate 96 08/05/2017 2.16.840.1.1138 83. 4.391.11.82791 Diastolic (mm Hg) 71 08/05/2017 2.16.840.1 .014863. 4.391.11.32506 Systolic (mm Hg) 119 08/05/2017 2.16.840.1. 172137. 4.391.11.00305 Weight 267 07/22/2017 2.16.840.1.1138 83. 4.391.11.40168 Height 79 07/22/2017 2.16.840.1.1138 83. 4.391.11.18262 Temperature Oral (F) 98.3 F 07/22/2017 2.16.84 0.1.354842. 4.391.11.52337 Heart Rate 104 07/22/2017 2.16.840.1.1138 83. 4.391.11.25836 Diastolic (mm Hg) 63 07/22/2017 2.16.840.1 .937847. 4.391.11.40873 Systolic (mm Hg) 104 07/22/2017 2.16.840.1. 977936. 4.391.11.60748 Respitory Rate 14 07/05/2017 [facility] Systolic (mm Hg) 131 07/04/2017 [facility] Diastolic (mm Hg) 75 07/04/2017 [facility] st Respitory Rate 16 07/04/2017 [facility] Temperature Oral (F) 97.6 F 07/04/2017 [facility] Rate 74 07/04/2017 [facility] Systolic (mm Hg) 136 07/04/2017 [facility] Diastolic (mm Hg) 85 07/04/2017 [facility] st Temperature Oral (F) 97.9 F 07/04/2017 [facility] Heart Rate 82 07/04/2017 [facility] Systolic (mm Hg) 107 07/04/2017 [facility] Diastolic (mm Hg) 67 07/04/2017 [facility] st Heart Rate 76 07/04/2017 [facility] Temperature Oral (F) 98.5 F 07/04/2017 [facility] Respitory Rate 14 07/04/2017 [facility] Weight 129 06/20/2017 [facility] BMI Calculated 32.04 06/20/2017 [facility] Height 200.66 cm 06/20/2017 [facility] Heart Rate 85 06/20/2017 [facility] Systolic (mm Hg) 111 06/20/2017 [facility] Diastolic (mm Hg) 82 06/20/2017 [place] [facility] Respitory Rate 16 06/20/2017 [facility] Weight 129.545 06/19/2017 [facility] BMI Calculated 32.17 06/19/2017 [facility] Height 200.66 cm 06/19/2017 [facility] Temperature Oral (F) 98.2 F 06/19/2017 [facility] Respitory Rate 18 06/19/2017 [facility] Heart Rate 100 06/19/2017 [facility] Systolic (mm Hg) 125 06/19/2017 [facility] Diastolic (mm Hg) 74 [facility]/19/2017 [facility] Location Encounter Encounter Reason Attending ADM DC Stat us Source Details Type Number For Provider Date Date [facility] [id number] Poppy 06/19 06/20 [facility] 2 [place] /2016 [facility] Inpatient [id number] Daron Puma 06/20 07/05 [facility] Outpatient [id number] JOSE 07/11 [facility] 0 [facility] Outpatient [id number] Colby 07/14 07/15 [facility] 8 [place] [facility] Outpatient [id number] JOSE 08/08 [facility] 1 EST [facility] Outpatient [id number] Harita 09/05 09/06 [facility] 3 [place] /2016 [facility] Outpatient [id number] JOSE 09/18 [facility] [id number] Daron Puma 09/18 09/19 [facility] [id number] JOSE 06/04 [facility] [place] [facility] [id number] Jose 06/04 06/04 [facility] 3 [place] Ajay [facility] [id number] Torres Krell 10/26 [facility] [place] [facility] [id number] Torres Krell 10/26 [facility] [id number] Torres Krell 10/26 10/26 [facility] [place] [facility] [id number] Torres Krell 10/26 10/27 [facility] [place] Procedures Procedure Code Date Perfomer Comments Source Arthroscopy<sup>1 [id number] BILATERAL [facility] </sup> Neuro,KRISTA [facility] Laminectomy with [id number] [facility] Assessment and Plan Assessment and Plan Date Source Extracted from:Title: Clinical Document 07/05/2017 [facility] Author: Scott Hoover MD Date: 07/04/17 PM&R PROGRESS NOTE CHIEF COMPLAINT AND IDENTIFICATION: A 56-year-old man being seen for ongoing rehabilitation needs in the setting of complex hospitalization with MSSA bacteremia, epidural staph infection with cord compression, now status post decompression. INTERVAL EVENTS AND SUBJECTIVE All interval events reviewed. More aler t today. No fevers, chills, nausea, vomiting, chest pain, palpitations, headaches, or dizziness. No new focal strength or sensation changes. No new bowel or bl adder complaints. Mood has been fair. Improving pain. Amb ulated > 400 feet. PHYSICAL EXAMINATION: Vitals and Temp: Vitals Tmp(F) Pulse BP RR SpO2 FIO2 07/04 12:00 97.9 82 136/85 -- 98 --- 07/04 08:10 98.5 76 107/67 -- 96 --- 07/04 07:43 ---- --- ----- 14 97 21% 07/04 04:00 98.8 79 103/66 17 96 --- 07/04 00:00 98.5 84 110/76 17 96 --- 24 Hr Tmax: 98.8F (37.11c) at 07/04 04:0 0 Vital Signs are the last 5 in the past 48 hours. GENERAL: No apparent distress, sitting in his room in bed. PSYCH: He is alert, awake, appropriate. HEENT: Pupils equal, round, reactive to light. Extraocular muscles intact. Moist mucous membranes. CARDIOVASCULAR: 2+ bilateral upper extremity pulses, regula r rate and rhythm. PULMONARY: Respirations unlabored without dyspnea. ABDOMEN: Doughy, nontender, nondistended. GENITOURINARY: No Pollard. SKIN: No new breakdown or rashes seen over the arms or feet . NEUROMUSCULOSKELETAL: Cranial nerves II -XII are intact. Strength is 4/5 in the bilateral upper and lower extremities with pain avoidance behaviors in the legs. No new hypertonicity or clonus. LABORATORY DATA: Labs (Last four charted values) WBC 4.9 (SEP 12) 5.5 (SEP 11) 7.3 (JUN 09) 7.6 (JUN 07) Hgb L 10.2 (SEP 1 2) L 9.6 (JUN 11) L 8.5 (JUN 09) L 10.3 (JUN 07) Hct L 31.2 (SEP 1 2) L 29.3 (SEP 11) L 26.0 (JUN 09) L 32.0 (JUN 07) Plt 374 (JUN 12) 366 (SEP 11) 291 (JUN 09) 376 (JUN 07) Na 135 (JUN 12) 143 (JUN 09) 136 (JUN 07) 136 (JUN 05) K 4.2 (JUN 12) L 3.3 (JUN 09) 4.1 (JUN 07) 4.0 (JUN 05) CO2 30 (JUN 12) L 23 (JUN 09) 28 (JUN 26) 27 (JUN 05) Cl 96 (JUN 12) H 113 (JUN 09) 101 (JUN 26) 100 (JUN 05) Cr 0.95 (JUL 01) 0.54 (JUN 28) 1.00 (JUN 26) 0.77 (JUN 24) BUN 12 (JUN 12) 7 (JUN 09) 9 (JUN 26) 10 (JUN 05) Glucose Random H 235 (JUN 12 ) 99 (JUN 09) H 136 (JUN 26) H 135 (JUN 05) Mg H 2.5 (JUN 26 ) H 2.7 (JUN 23) H 2.6 (JUN 21) 2.4 (JUN 20) Phos 2.9 (JUN 26) Ca 8.8 (JUN 12) C 6.3 (JUN 09) 8.5 (JUN 26) L 7.8 (JUN 05) PT 14.6 (JUN 26) INR 1.12 (JUN 26) Troponin <0.02 (JUN 20 ) <0.02 (JUN 20) <0.02 (JUN 20) CK MB 0.8 (JUN 20) 0.9 (JUN 20) 0.7 (JUN 20) Total CK 159 (JUN 20) 95 (JUN 20) 105 (JUN 20) IMAGING STUDIES: No new imaging. ASSESSMENT AND PLAN: This 56-year-old man with: 1. 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 Dr. Mercado following. Continue postoperative risk reduction. Continue antibiotics. Continue rehabilitation therapies as below. 2. Acute on chronic pain: Pain managem ent services are following. I have discussed with them. They are weaning off of the opioids and transitioning over to the oral medications. 3. Continue to follow as pain control i s likely the biggest barrier to progress. 4. Rehabilitation for deficits in mobil ity, ADLs, IADLs, weakness, incoordination and imbalance to the above: -All interval therapy notes reviewed. -Family now more comfortable with the care support he needs. -Functionally is supervision to [facility] at household level . -Plan for d/c to home with home health. Thank you for involving me in his care. Plan of Care No Data Provided for This Section Social History Social History Date Source Social History TypeResponse 09/18/2017 [facility] Smoking Status Never smoker; Exposure to Tobacco Smoke None; Cigarette Smoking Last 365 Days No; Reg Smoking Cessation Counseling No entered on: 09/18/17 Social History TypeResponse 08/08/2017 [facility] Smoking Status Never smoker; Exposure to Tobacco Smoke None; Cigarette Smoking Last 365 Days No; Reg Smoking Cessation Counseling No Social History TypeResponse 06/20/2017 [facility] Smoking Status Never smoker; Exposure to Tobacco Smoke None; Cigarette Smoking Last 365 Days No; Reg Smoking Cessation Counseling No Family History No Data Provided for This Section Advance Directives No Data Provided for This Section Functional Status No Data Provided for This Section
--- OUTSIDE RECORDS SUMMARY | 2020-05-20 20:31 | XMS REPORT | Continuity of Care Document ---
:1960 Author Organization [facility] t Address [address] [place] [address] Care Team Providers Name Role Phone Agustín Juan MD Primary Care Physician Saad Allen MD Attending Clinician Rosanne CUADRA Attending Clinician Unavailable Den CUADRA Attending Clinician Unavailable Sierra NICE, Liana. Attending Clinician Scott Kapoor Attending Clinician Mark Attending Clinician Unavailable Katie Attending Clinician Trice Mercado Attending Clinician Munir Attending Clinician Nicole Gandhi Attending Clinician Pete Bartholomew Attending Clinician Jennifer Lua Attending Clinician Pete Bartholomew Admitting Clinician Payers Payer Name Policy Policy Number Effective Expiration Source Type Date Date CIGNACIGNA OPEN xxxxxxxxxxx 2015 [place] ACCESS/NETWORKxxxxxxx 00:00:00 Met adam xxxx2015-[facility] JOHNIE MEDICAREMEDICARE PART xxxxxxxxxxx 2016 Serafin Rivera AND 00:00:00 [employer] [employer] Fugxfwsjkhnd98/1/2016 [place] Condition Condition Condition Status Onset Resolution Last Treating Co mments Source Name Details Category Date Date Treatment Clinician Date Pain due Pain due Disease Active [place] to total to total 04-29 Method i left knee left knee 00:00: st replacemen replacemen 00 t t Knee Knee Disease Active Overview: [place] n stiff, stiff, 03-20 Added Methodi right right 00:00: automatic st 00 ally from request for surgery [id number] Stiffness Stiffness Disease Active Overview: [place] of left of left 03-20 Added Methodi knee, not knee, not 00:00: automatic s t elsewhere elsewhere 00 ally from classified classified request for surgery [id number] Pain in Pain in Disease Active [place] left tibia left tibia 07-17 Me thodi 00:00: st 00 Mechanical Mechanical Disease Active [place] loosening loosening 5- Meth saurabh of of 00:00: st internal internal 00 left knee left knee prosthetic prosthetic joint joint Status Status Disease Active [place] post post 02-16 Methodi revision revision 00:00: st of total of total 00 replacemen replacemen t of left t of left knee knee Anterior Anterior Disease Active [place] knee pain, knee pain, 4- Me thodi left left 00:00: st 00 Infection Infection Disease Active Silvia ston following following 30 Meth saurabh a a 00:00: st procedure, procedure, 00 deep deep incisional incisional surgical surgical site, site, subsequent subsequent encounter encounter G06.2 Diagnosis Active 2016-102017-09-05 Mem oria 10-26 07:56:00 l G06.2 00:00: [place] 00 Active 08/26/2017 [place] XRAY Diagnosis Active 2017-07-14 Mem oria 07-14 09:59:00 l XRAY 09:59: [place] 00 Active 07/14/2017 [facility] BACK PAIN Diagnosis Active 2017-07-15 Memoria 06-19 22:02:00 l BACK 00:00: [place] PAIN 00 Active 06/19/2017 [facility] 724.2 Diagnosis Active 2015-07-17 Mem oria 05-24 17:22:00 l 724.2 00:00: [place] 00 Active 05/24/2015 [facility] 724.2 Diagnosis Active 2014-2015-06-19 Mem oria ACUTE LOW 7- 15:38:00 l BACK PAIN 724.2 00:00: [place] ACUTE LOW 00 BACK PAIN Active 05/09/2015 [facility] Sleep Sleep Problem Active [facility] disturb[facility] disturbanc Kateryna kes - e e Memoria l [facility] Body mass Body mass Problem Active [facility] index index [facility] - (BMI) of (BMI) of Memori a 32.0-32.9 32.0-32.9 l in adult in adult Outpat i ent Clinics Other Other Diagnosis Active [facility] chronic chronic [facility] - pain pain [facility] Hyperglyce Hyperglyce Problem Active [facility] Deep vein Deep vein Problem Active [facility] thrombosis thrombosis Kateryna kes - (DVT) of (DVT) of Memori a femoral femoral l vein of vein of [facility] right right ent lower lower Clinics extremity, extremity, unspecifie unspecifie d d chronicity chronicity Abnormal Abnormal Problem Active [facility] PSA [facility] Cough Cough Problem Active [facility] Pre-operat Pre-operat Problem Active [facility] pranav pranav [facility] - clearance clearance Kiko madelin l [facility] Type 2 Type [address] [facility] diabetes diabetes [facility] - mellitus mellitus 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 Ou tpati y y ent complicati complicati Cl inics on, on, without without long-term long-term current current use of use of insulin insulin Chronic Problem Resolve 2019-10-29 Mem oria back pain d 02:08:59 l (disorder) Chronic Her perez back pain (disorder) Resolved Problem 10/29/2019 [facility] Diabetes Problem Resolve 2019-10-29 Me moria mellitus d 02:08:59 l (disorder) Diabetes He rmann mellitus (disorder) [facility] Hypertensi Problem Resolve 2019-10-29 Memoria ve d 02:08:59 l disorder, [place] systemic Hypertensi arterial ve (disorder) disorder, systemic arterial (disorder) Resolved Problem 10/29/2019 [facility] Type 2 Diagnosis Active 2017-10-29 Mem oria diabetes 03:45:29 l mellitus Type 2 [place] without diabetes complicati mellitus on, without without complicati long-term on, current without use of long-term insulin current use of insulin Active Diagnosis 10/29/2017 2.16.840.1 .[id number]. [id number] 68 Staphyloco Diagnosis Active 2017-10-29 Memoria ccus 03:45:29 l aureus Moy bacteremia Staphyloco with ccus sepsis aureus bacteremia with sepsis Active Diagnosis 10/29/2017 2.16.840.1 .304405.4. [id number] 68 Abscess in Diagnosis Active 2017-10-29 Memoria epidural 03:45:29 l space of Abscess Margo nn thoracic in spine epidural space of thoracic spine Active Diagnosis 10/29/2017 2.16.840.1 .456726.4. [id number] 68 Local Diagnosis Active 2017-09-10 Mem oria infection 03:45:50 l of the Local Moy skin and infection subcutaneo of the us tissue, skin and unspecifie subcutaneo d us tissue, unspecifie d Active Diagnosis 09/10/2017 2.16.840.1 .351769.4. [id number] 68 Abrasion Diagnosis Active 2017-09-10 M emoria of right 03:45:50 l front wall Abrasion He rmann of thorax, of right subsequent front wall encounter of thorax, subsequent encounter Active Diagnosis 09/10/2017 2.16.840.1 .454187.4. [id number] 68 Osteomyeli Problem Active 2017-10-29 M emoria tis 03:45:29 l [place] Osteomyeli tis Active Problem 10/29/2017 2.16.840.1 .804537.4. [id number] 68 Sepsis Problem Active 2017-10-29 Memor ia 03:45:29 l Sepsis Moy Active Problem 10/29/2017 2.16.840.1 .719893.4. [id number] 68 Bacteremia Problem Active 2017-10-29 M emoria 03:45:29 l [place] Bacteremia Active Problem 10/29/2017 2.16840.1 .513081.4. [id number] 68 HTN Problem Active 2017-10-29 Memor ia (hypertens 03:45:29 l ion) HTN Moy (hypertens ion) Active Problem 10/29/2017 2.16.840.1 .829994.4. 391 68 Epidural Problem Active 2017-10-29 Mem oria abscess 03:45:29 l Epidural [place] abscess Active Problem 10/29/2017 2.16.840.1 .532335.4. 68 Chronic Problem Active 2017-10-29 Kiko madelin back pain 03:45:29 l Chronic [place] back pain Active Problem 10/29/2017 2.16.840.1 .266280.4. 391. 68 Simple Problem Active 2019-10-29 Memor ia obesity 02:08:59 l (disorder) Simple Herm jah obesity (disorder) Active Problem 10/29/2019 [facility] DORSALGIA, Diagnosis Active 2017-07-15 Memoria UNSPECIFIE 22:02:00 l D Moy DORSALGIA, UNSPECIFIE D Active [facility] Allergies, Adverse Reactions, Alerts Allergy Allergy Status Severity Reaction(s) Onset Inactive Treating Comm ents Source Name Type Date Date Clinician N.K.D.A. N.K.D.A. Active Info Not 2016-10 Kiko madelin Available 2-14 l 00:00: [place] 00 No Known No Known Active Memori a Medicati Medicati l on on [place] Allergjulian Allergjulian s s Social History Social Habit Start Date Stop Date Quantity Comments Source History of tobacco Current smoker justin [employer] Day use Sex Assigned At [facility] ethodist Exposure to Not sure [place] Metho dist SARS-CoV-2 (event) Cigarettes smoked 2020-05-09 2020-05-09 Jerry Hyatt current (pack per 00:00:00 00:00:00 day) - Reported Cigarette 2020-05-09 2020-05-09 Jerry Hdez ist pack-years 00:00:00 00:00:00 Alcohol intake 2020-05-09 2020-05-09 Ex-drinker [facility] thodist 00:00:00 00:00:00 (finding) Smoking Status Start Date Stop Date Source Former smoker 2020-05-09 00:00:00 2020-05-09 00:00:00 [place] [employer] [employer] Social History [facility] Medications Ordered Filled Start Stop Current Ordering Indication Dosage Frequency Signature Comments Components Source Medication Medication Date Date Medication? Clinician (SIG) Name Name rivaroxaban 2020-0 Yes 20mg Q2D Take 20 mg [place] (XARELTO) 7-21 by mouth Method i 20 mg 12:08: every st tablet 57 other day. PT STATES HE HASN'T TAKEN THIS MEDICATION IN 3 MONTHS. tiZANidine 2020-0 Yes 4 mg in [place] (ZANAFLEX) 7-21 am8 mg at Meth saurabh 4 MG tablet 12:08: night st 57 HYDROcodone 2020-0 Yes acute pain 1{tbl} Q4H Take 1 [place] -acetaminop 7-21 tablet by Met louise jose (NORCO) 12:08: mouth st 10-325 mg 57 every 4 per tablet (four) hours as needed for moderate pain (for back and knee pain) .acute pain. traZODone 2020-0 Yes 100mg QD Take 100 Silvia ston (DESYREL) 7-21 mg by Methodi 100 MG 12:08: mouth st tablet 57 nightly. methocarbam 2020-0 2020- No 500mg Q.5D Take 500 Edwards ol 7-21 07-21 mg by Methodi (ROBAXIN) 12:08: 00:[address] 500 MG 27 :00 (two) tablet times a day. pregabalin 2020-0 Yes 200mg Q.[id number] Take 200 [place] (LYRICA) 7-21 [id number] mg by Meth saurabh 200 MG 12:06: 3D mouth 3 st capsule 27 (three) times a day. gabapentin 2020-0 2020- No 300mg Q.[id number] Take 300 [place] (NEURONTIN) 7-21 07-21 [id number] mg by Methodi 300 mg 12:06: 00:[address] capsule 19 :00 (three) times a day. MetFORMIN MetFORMIN 2019-0 Yes Deepthi [address] HCl ER HCl ER 6-17 [facility] - 00:[facility]: evening [facility]oria 00 meal l [facility] Xarelto Xarelto 2018- Yes Deepthi [address] 2-09 [place] with food [facility] - 00:00: Memoria 00 l [facility] Cefazolin 2017- Yes Soto not Kiko madelin in D5W 1-10 Garza defined l 03:45: M[place] 29 Duexis 2018-0 Yes [place] TAKE 1 Memor ia 1-10 Garza TABLET BY l 03:45: MOUTH 3 [place] 29 TIMES A DAY FOR 30 DAYS Opana ER 2018-0 Yes [place] (Schedule Memoria 1-10 Garza II Drug) l 03:45: TAKE 1 Moy 29 TABLET BY MOUTH EVERY 12 HOURS FOR PAIN Gabapentin 2018-0 Yes [place] TAKE 1 M emoria 1-10 Garza TABLET BY l 03:45: MOUTH 3 [place] 29 TIMES A DAY FOR 30 DAYS Cyclobenzap 2018-0 Yes [place] TK 1 T PO Memoria rine HCl 1-10 Garza Q 8 H PRN l 03:45: MUSCLE M[place] 29 SPASMS Methocarbam 2018-0 Yes [place] TAKE 1 TO Memoria ol 1-10 Garza 2 TABLETS l 03:45: BY MOUTH Moy 29 EVERY 8 HOURS NEEDED FOR MUSCLE SPASM 5 DAYS Oxymorphone 2018-0 Yes [place] (Schedule Memoria HCl 1-10 Garza II Drug) l 03:45: TAKE 1 Moy 29 TABLET BY MOUTH EVERY 6 HOURS NEEDED FOR PAIN Hydrocodone 2018-0 Yes [place] (Schedule Memoria -Acetaminop 1-10 Garza II Drug) l hen 03:45: TAKE 1 Moy 29 TABLET BY MOUTH EVERY 6 HOURS NEEDED FOR PAIN Meloxicam 2018-0 Yes [place] TK 1 T PO Memoria 1-10 Garza BID l 03:45: [place] 29 Metformin 2018-0 Yes [place] TK 1 T PO Memoria HCl 1-10 Garza BID l 03:45: [place] 29 Atorvastati 2018-0 Yes [place] TK 1 T PO Memoria n Calcium 1-10 Garza QD l 03:45: [place] 29 Xarelto 2018-0 Yes [place] TK 1 T PO M emoria 1-10 Garza Q 24 HOURS l 03:45: FOR 13 Moy 29 DAYS Warfarin 2018-0 Yes [place] TK 1 T PO Memoria Sodium 1-10 Garza NIGHT l 03:45: BEFORE Moy 29 SURGERY Lisinopril 2018-0 Yes [place] TK 1 T PO Memoria 1-10 Garza QD l 03:45: Rifampin Yes Soto 1 capsule Memoria 1-10 Garza l 03:45: Doxycycline Yes Soto 1 capsule Memoria Hyclate 1-10 Garza l 03:45: Keflex Yes Soto 1 tablet Mem oria 1-10 Garza l 03:45: Keflex 2016-10 Yes Harita 1 tablet Memor ia 1-21 [place] l 00:00: Omnipaque 2016-10 No Notes: Memori a 300 -17 (Same l 14:55: as:Omnipaq ue 300). WASTE: F/P - Black; E - Municipal Trash Bin Rifampin 2016-10 Yes Harita 1 capsule Me moria 0-31 [place] l 00:00: Doxycycline 2016-10 Yes Harita 1 capsule Memoria Hyclate 0-31 [place] l 00:00: Rifampin 2016-10 Yes Harita 1 capsule Me moria 0-31 [place] l 00:00: OPANA 20170 No OPANA Memoria ER (C-II) - ER l Controlled 02:00: (C-II) Margo nn Med Pt's 00 Controlled Own Med Med Pt's Own Med, 10 mg, 1 tab, Drug form: MISC, Route: PO, Q12H, 07/04/17 21:00:00 CDT, Duration: 30 day, Stop date: 08/03/17 9:00:00 CDT Opana ER No 10 mg, Memoria 07-05 Route: PO, l 02:00: Drug form: ERTAB, Q12H, Dosing Weight 129, kg, Start date: 07/04/17 21:00:00 CDT, Duration: 30 day, Stop date: 08/03/17 9:00:00 CDT Cefazolin Yes 2 gm = 100 Me moria 9-16 mL, IVPB, l 00:45: ABXQ8H, 0 Refill(s) OPANA 2017-0 No OPANA Memoria ER (C-II) 915 ER l Controlled 16:48: (C-II) Margo nn Med Pt's 00 Controlled Own Med Med Pt's Own Med, 10 mg, Drug form: MISC, Route: PO, Q12H, Priority: NOW, 07/04/17 11:48:00 CDT, Duration: 30 day, Stop date: 08/03/17 9:00:00 CDT MS Contin 2016-0 No Notes: Do Mem oria 07-04 not crush l 02:00: (Same as:Oramorp h SR, MS Contin) Oxycontin No Notes: Do Mem oria 07-02 not crush l 02:00: or chew. (Same as: OxyContin) Naloxone No 0.4 mg, Memori a 06-30 Route: l 19:25: IVP, [place] 00 Q2MIN, Dosing Weight 129, kg, PRN Narcotic Reversal, Start date: 06/30/17 14:25:00 CDT, Duration: 8 doses or times, Stop date: Limited # of times Flumazenil No 0.2 mg, Kiko madelin 06-30 Route: l 19:25: IVP, PRN, [place] 00 Dosing Weight 129, kg, PRN Benzodiaze pine Reversal, Initial dose, Start date: 06/30/17 14:25:00 CDT, Duration: 30 day, Stop date: 07/30/17 14:24:00 CDT Morphine No 4 mg, Memoria 06-30 Route: l 19:25: IVP, Moy 00 Q5Min, Dosing Weight 129, kg, PRN Pain Score 7-10, Start date: 06/30/17 14:25:00 CDT, Duration: 3 doses or times, Stop date: Limited # of times Oxycodone No 10 mg, Memori a 06-30 Route: NG, l 19:25: Drug form: LIQ, Q4H, Dosing Weight 129, kg, PRN Pain Score 7-10, Start date: 06/30/17 14:25:00 CDT, Duration: 30 day, Stop date: 07/30/17 14:24:00 CDT Hydromorpho 2017-0 No 0.5 mg, Mem oria ne 06-30 Route: l 19:25: IVP, [place] 00 Q5Min, Dosing Weight 129, kg, PRN Pain Score 7-10, Start date: 06/30/17 14:25:00 CDT, Duration: 4 doses or times, Stop date: Limited # of times Fentanyl 2017-0 No 50 Memoria 9- microgram, l 19:25: Route: Moy 00 IVP, Q5Min, Dosing Weight 129, kg, PRN Pain Score 7-10, Priority: Routine, Start date: 06/30/17 14:25:00 CDT, Duration: 2 doses or times, Stop date: Limited # of times Diphenhydra 2017-0 No 12.5 mg, Me moria mine 06-30 Route: l 19:25: IVP, Drug Moy 00 form: INJ, Q6H, Dosing Weight 129, kg, PRN Itching, Start date: 06/30/17 14:25:00 CDT, Duration: 30 day, Stop date: 07/30/17 14:24:00 CDT Albuterol 2017-0 No 2.49 mg, Kiko madelin 0.83 MG/ML 06-30 Route: l Inhalant 19:25: NEB, [place] Solution 00 Q20Min, Dosing Weight 129, kg, PRN Wheezing, Priority: STAT, Start date: 06/30/17 14:25:00 CDT, Duration: 30 day, Stop date: 07/30/17 14:24:00 CDT Ondansetron 2017-0 No 4 mg, Memor ia 06-30 Route: l 19:25: IVP, ONCE, Moy 00 Dosing Weight 129, kg, PRN Nausea & Vomiting, Start date: 06/30/17 14:25:00 CDT Meperidine 2017-0 No 12.5 mg, Mem oria 06-30 Route: l 19:25: IVP, Moy 00 Q30Min, Dosing Weight 129, kg, PRN Other -See Comment, For shivering, Start date: 06/30/17 14:25:00 CDT, Duration: 2 doses or times, Stop date: Limited # of times esmolol 0 No 10 mg, Memoria 06-30 Route: l 19:25: IVP, [place] 00 Q5Min, Dosing Weight 129, kg, PRN Other -See Comment, Start date: 06/30/17 14:25:00 CDT, Duration: 5 doses or times, Stop date: Limited # of times Hydralazine 0 No 10 mg, Kiko madelin 06-30 Route: l 19:25: IVP, [place] 00 Q20Min, Dosing Weight 129, kg, PRN Elevated BP, Start date: 06/30/17 14:25:00 CDT, Duration: 2 doses or times, Stop date: Limited # of times Labetalol No 10 mg, Memori a 06-30 Route: l 19:25: IVP, Moy 00 Q5Min, Dosing Weight 129, kg, PRN Elevated BP, Start date: 06/30/17 14:25:00 CDT, Duration: 5 doses or times, Stop date: Limited # of times Acetaminoph No 1,000 mg, M emoria en 06-30 Route: l 19:25: IVPB, Drug form: INJ, ONCE, Dosing Weight 129, kg, PRN Pain Score 1-3, Start date: 06/30/17 14:25:00 CDT, Duration: 1 doses or times, Stop date: Limited # of times Ketorolac No 30 mg, Memori a 06-30 Route: l 19:25: IVP, ONCE, Dosing Weight 129, kg, Start date: 06/30/17 14:25:00 CDT, Duration: 1 doses or times, Stop date: 06/30/17 14:25:00 CDT ondansetron No Route: IV, Memoria (ANES) 06-30 Drug form: l 18:39: INJ, ONCE, Stop date: 06/30/17 13:39:00 CDT lidocaine No Route: IV, Me moria (ANES) 06-30 Drug form: l 18:34: INJ, ONCE, Stop date: 06/30/17 13:34:00 CDT hydromorpho No Route: IV, Memoria ne (ANES) 06-30 Drug form: l 18:34: INJ, ONCE, Stop date: 06/30/17 13:34:00 CDT propofol No Route: IV, Mem oria (ANES) 06-30 Drug form: l 18:34: INJ, ONCE, Stop date: 06/30/17 13:34:00 CDT LR 1000 mL No Route: IV, M emoria INJ (ANES) 06-30 Total l 17:39: Volume: [place] 00 1,000, Start date: 06/30/17 12:39:00 CDT, Stop date: 06/30/17 13:39:00 CDT Calcium No 1,000 mL, Memor ia Chloride 06-30 Rate: 25 l 0.0014 17:24: ml/hr, MEQ/ML / 00 Infuse Potassium over: 40 Chloride hr, Route: 0.004 IV, Dosing MEQ/ML / Weight 129 Sodium kg, Total Chloride Volume: 0.103 1,000, MEQ/ML / Start Sodium date: Lactate 06/30/17 0.028 12:24:00 MEQ/ML CDT, Injectable Duration: Solution 30 day, Stop date: 07/30/17 12:23:00 CDT Morphine No Notes: Memoria 06-30 (Same l 15:32: as:MORPhin e Sulfate) Lactated No 1,000 mL, Kiko madelin Ringers 06-30 Rate: 100 l 1,000 mL 05:00: ml/hr, Infuse over: 10 hr, Route: IV, Dosing Weight 129 kg, Total Volume: 1,000, Priority: Routine, Start date: 06/30/17 0:00:00 CDT, Duration: 30 day, Stop date: 07/29/17 23:59:00 CDT Clonidine No Notes: Memori a Hydrochlori 06-28 (Same As: l de 0.1 MG 22:08: Catapres) Her perez Oral Tablet 00 Calcium No Notes: Memoria Gluconate 06-28 WASTE: F/P l 22:01: - Sink; E - Municipal Trash Bin K-Dur 20 No Notes: Memoria 06-28 (Same as: l 22:01: K-Dur 20) Moy 00 "Do Not Crush" With food and full glass of water gabapentin No Notes: Memor ia 06-28 (Same as: l 10:30: Neurontin) Moy 00 heparin No Notes: Memoria sodium, 06-28 porcine l porcine 05:00: heparin [place] 2500 UNT/ML 00 Injectable Solution gabapentin Yes 800 mg = 1 M emoria 800 MG Oral 06-28 tab, PO, l Tablet 01:45: TID, # 90 Tomer n 00 tab, 3 Refill(s) Acetaminoph Yes 1 tab, PO, Memoria en 325 MG / 06-28 Q6H, PRN l Hydrocodone 01:45: for pain, H ermann Bitartrate 00 # 24 tab, 10 MG Oral 0 Tablet Refill(s) [[place] 10/325] Docusate No Notes: Memoria Sodium 100 06-27 (Same as: l MG Oral 22:00: Colace) Moy Capsule (Do Not Crush) Hydromorpho No 15 mg, 30 M emoria ne 06-27 mL, Route: l 19:30: IV, [place] Initial Loading Dose: 0.4mg, SENSOR SPECIALIST Dose: 0.2 mg, SENSOR SPECIALIST Lockout: 10 minutes, Continuous Basal Rate: 0 mg, 4 Hour Limit (In MG): 6, Continuous , Start date: 06/27/17 14:30:00 CDT, Duration: 30 day, Stop date: 07/27/17 14:29:00 CDT Naloxone No Notes: Memoria 06-27 Same as l 19:12: Narcan [place] Morphine No 30 mg, 30 Kiko madelin 06-27 mL, Route: l 19:00: IV, [place] Initial Loading Dose: 2 mg, SENSOR SPECIALIST Dose: 1 mg, SENSOR SPECIALIST Lockout: 10 minutes, Continuous Basal Rate: 0 mg, 4 Hour Limit (In MG): 30, Continuous , Start date: 06/27/17 14:00:00 CDT, Duration: 30 day, Stop date: 07/27/17 13:59:00 CDT Meperidine No Notes: Memor ia 06-27 (Same As: l 18:49: Demerol) Albuterol No Notes: SEE Me moria 0.83 MG/ML 06-27 RT l Inhalant 18:49: DOCUMENTAT Her perez Solution 00 ION (Same as: Proventil) Diphenhydra No Notes: Kiko madelin mine 06-27 (Same as: l 18:49: Benadryl) Promethazin No Notes: Do M emoria e 06-27 not give l 18:49: IV push. (Same as: Phenergan) Ondansetron No Notes: Kiko madelin 06-27 (Same as: l 18:49: Zofran) MEDICATION WASTE Product Size: 4 mg Product Wasted: _0__ mg Hydromorpho No 0.5 mg, Mem oria ne 06-27 Route: l 18:49: IVP, Moy 00 Q5Min, Dosing Weight 129, kg, PRN Pain Score 7-10, Start date: 06/27/17 13:49:00 CDT, Duration: 4 doses or times, Stop date: Limited # of times Naloxone No Notes: Memoria 06-27 Same as l 18:49: Narcan Flumazenil No Notes: Memor ia 06-27 (Same as: l 18:49: Romazicon) Calcium No 1,000 mL, Memor ia Chloride 06-27 Rate: 125 l 0.0014 18:49: ml/hr, MEQ/ML / 00 Infuse Potassium over: 8 Chloride hr, Route: 0.004 IV, Dosing MEQ/ML / Weight 129 Sodium kg, Total Chloride Volume: 0.103 1,000, MEQ/ML / Start Sodium date: Lactate 06/27/17 0.028 13:49:00 MEQ/ML CDT, Injectable Duration: Solution 30 day, Stop date: 07/27/17 13:48:00 CDT Oxycodone No Notes: Memori a 06-27 (Same as: l 18:49: Roxicodone ) Acetaminoph No Notes: Max Memoria en 06-27 acetaminop l 18:49: hen 4000 [place] 00 mg/day (4 gm/day). (Same as: Tylenol Extra Strength) Hydralazine No Notes: Kiko madelin 06-27 (Same as: l 18:49: Apresoline ) Push over 5 minutes esmolol No Notes: Memoria 06-27 (Same as: l 18:49: Brevibloc) Labetalol No Notes: Memori a 06-27 (Same as: l 18:49: Normodyne, Moy 00 Trandate) Push over 2 minutes Give bolus over 2-3 minutes. Naloxone No Notes: Memoria 06-27 Same as l 18:43: Narcan sodium No 1,000 mL, Memori a chloride 06-27 Rate: 30 l 0.45% 1000 18:43: ml/hr, Margo nn ml INJ 00 Infuse 1,000 mL over: 33.3 hr, Route: IV, Dosing Weight 129 kg, Total Volume: 1,000, Start date: 06/27/17 13:43:00 CDT, Duration: 30 day, Stop date: 07/27/17 13:42:00 CDT Promethazin No Notes: Do M emoria e 06-27 not give l 18:43: IV push. (Same as: Phenergan) Acetaminoph No Notes: Do M emoria en 325 MG / 06-27 not exceed l Hydrocodone 18:43: 4gm/day of Moy Bitartrate 00 acetaminop 10 MG Oral hen. Tablet (Same as: [place] 325/10) phenylephri No Route: IV, Memoria ne (ANES) 06-27 Drug form: l 17:53: INJ, ONCE, Stop date: 06/27/17 12:53:00 CDT hydromorpho No Route: IV, Memoria ne (ANES) 06-27 Drug form: l 17:38: INJ, ONCE, Stop date: 06/27/17 12:38:00 CDT ceFAZolin No Route: IV, Me moria (ANES) 06-27 Drug form: l 17:06: INJ, ONCE, Stop date: 06/27/17 12:06:00 CDT cefepime No Route: IV, Mem oria (ANES) 06-27 Drug form: l 16:41: INJ, ONCE, Stop date: 06/27/17 11:41:00 CDT metroNIDAZO No Route: IV, Memoria LE (ANES) 06-27 Drug form: l 16:16: INJ, ONCE, Stop date: 06/27/17 11:16:00 CDT Albuterol No Notes: Memori a 0.833 MG/ML 06-27 (Same as: l / 14:38: Duoneb) Ipratropium 00 [place] 0.167 MG/ML Inhalant Solution Calcium No 1,000 mL, Memor ia Chloride 06-27 Rate: 25 l 0.0014 14:38: ml/hr, MEQ/ML / 00 Infuse Potassium over: 40 Chloride hr, Route: 0.004 IV, Dosing MEQ/ML / Weight 129 Sodium kg, Total Chloride Volume: 0.103 1,000, MEQ/ML / Start Sodium date: Lactate 06/27/17 0.028 9:38:00 MEQ/ML CDT, Injectable Duration: Solution 1 day, Stop date: 06/28/17 9:37:00 CDT ondansetron No Route: IV, Memoria (ANES) 06-27 Drug form: l 14:21: INJ, ONCE, Stop date: 06/27/17 9:21:00 CDT succinylcho No Route: IV, Memoria line (ANES) 06-27 Drug form: l 14:21: INJ, ONCE, Stop date: 06/27/17 9:21:00 CDT propofol No Route: IV, Mem oria (ANES) 06-27 Drug form: l 14:21: INJ, ONCE, Stop date: 06/27/17 9:21:00 CDT rocuronium No Route: IV, M emoria (ANES) 06-27 Drug form: l 14:21: INJ, ONCE, Stop date: 06/27/17 9:21:00 CDT lidocaine No Route: IV, Me moria (ANES) 06-27 Drug form: l 14:16: INJ, ONCE, Stop date: 06/27/17 9:16:00 CDT midazolam No Route: IV, Me moria (ANES) 06-27 Drug form: l 14:16: SOLN, [place] 00 ONCE, Stop date: 06/27/17 9:16:00 CDT acetaminoph No Route: IV, Memoria en (ANES) 06-27 Drug form: l 14:16: INJ, ONCE, Stop date: 06/27/17 9:16:00 CDT fentaNYL No Route: IV, Mem oria (ANES) 06-27 Drug form: l 14:16: INJ, ONCE, Stop date: 06/27/17 9:16:00 CDT ceFAZolin No Route: IV, Me moria (ANES) 06-27 Drug form: l 14:11: INJ, ONCE, Stop date: 06/27/17 9:11:00 CDT vancomycin No Route: IV, M emoria (ANES) 06-27 Drug form: l (ANES) 13:37: INJ, Start Margo 00 date: 06/27/17 8:37:00 CDT, Stop date: 06/27/17 9:37:00 CDT LR 1000 mL No Route: IV, M emoria INJ (ANES) 06-27 Total l 12:56: Volume: Moy 00 1,000, Start date: 06/27/17 7:56:00 CDT, Stop date: 06/27/17 8:56:00 CDT bupivacaine No Notes: Kiko madelin -epinephrin 06-27 (bupivacai l e 12:10: ne-epi Moy 0.25%-1:200 00 0.25%-1:20 ,000 0,000 30 preservativ ml VL) e-free Not for injectable use in solution continuous infusion. (Same As: Marcaine w/Epi) Docusate No Notes: Memoria Sodium 100 06-26 (Same as: l MG Oral 22:00: Colace) [place] Capsule (Do Not Crush) Lactulose No Notes: Memori a 667 MG/ML 06-26 (Same l Oral 18:48: as:Chronul [place] Solution 00 ac) gabapentin No Notes: Memor ia 06-26 (Same as: l 18:30: Neurontin) [place]oy Lidocaine No Notes: Memori a 40 MG/ML 06-26 (Same as: l Topical 15:29: Xylocaine) Herm jah Cream metoprolol No Notes: Memor ia tartrate 06-26 (Same as: l 02:00: Lopressor) [place] Dilaudid No 0.8 mg, Memori a 06-24 0.8 mL, l 15:36: Route: IV, Moy 00 Drug form: INJ, Q3H, Dosing Weight 129, kg, PRN Pain Score 4-6, Start date: 06/24/17 10:36:00 CDT, Duration: 30 day, Stop date: 07/24/17 10:35:00 CDT OPANA No OPANA Memoria ER (C-II) 06-24 ER l Controlled 02:00: (C-II) Margo nn Med Pt's 00 Controlled Own Med Med Pt's Own Med, 10 mg, 1 tab, Drug form: MISC, Route: PO, BID, 06/23/17 21:00:00 CDT, Duration: 30 day, Stop date: 07/23/17 9:00:00 CDT Opana No 10 mg, Memoria 06-23 Route: PO, l 22:00: Drug form: [place] 00 TAB, BID, Dosing Weight 129, kg, Start date: 06/23/17 17:00:00 CDT, Duration: 30 day, Stop date: 07/23/17 9:00:00 CDT *ATTN RN No *ATTN RN Yonatanor ia please 06-23 please l bring pt 21:00: bring pt Margo nn home med [facility] , *ATTN RN, Drug form: MISC, Route: MISC, QSHIFT, 06/23/17 16:00:00 CDT, Duration: 30 day, Stop date: 07/23/17 8:00:00 CDT Motrin No Notes: Memoria 06-23 (Same as: l 20:13: Motrin) "Do Not Crush" Take with food. famotidine No Notes: Memor ia 06-23 (Same as: l 20:12: Pepcid) Famotidine No 1 tab, Memor ia / Ibuprofen 06-23 Route: PO, l 19:30: Drug Form: Moy 00 TAB, Dosing Weight 129, kg, TID, PRN Pain Score 4-6, Start date: 06/23/17 14:30:00 CDT, Duration: 30 day, Stop date: 07/23/17 14:29:00 CDT sodium No 1,000 mL, Memori a chloride 06-23 Rate: 60 l 0.9% 1000 19:29: ml/hr, Tomer n ml INJ 00 Infuse 1,000 mL over: 16.7 hr, Route: IV, Dosing Weight 129 kg, Total Volume: 1,000, Start date: 06/23/17 14:29:00 CDT, Duration: 30 day, Stop date: 07/23/17 14:28:00 CDT Famotidine Yes 1 tab, PO, M emoria 26.6 MG / 06-23 TID, PRN l Ibuprofen 17:02: Pain, # 90 He rmann 800 MG Oral 00 tab, 0 Tablet Refill(s) [Duexis] Cefazolin No Notes: Memori a 06-23 Same as: l 00:00: Ancef Oxymorphone Yes 10 mg = 1 M emoria Hydrochlori 06-22 tab, PO, l de 10 MG 23:11: BID, 0 [place] Oral Tablet 00 Refill(s) [Opana] gabapentin No Notes: Memor ia 06-21 (Same as: l 21:00: Neurontin) vancomycin No 2001 mg: Me moria 06-21 infuse l 05:00: over 2.5 Moy 00 hours Vancomycin No 1.25 gm, Mem oria 06-21 Route: IV, l 05:00: Q8H, Moy Dosing Weight 129, kg, Start date: 06/21/17 0:00:00 CDT, Duration: 14 day, Stop date: 07/04/17 16:00:00 CDT, Pharmacy to dose, ABX Indication : Bone/Joint Infection vancomycin No 2000 mg: Me moria 06-21 infuse l 02:00: over 2.5 Moy 00 hours heparin No Notes: Memoria 06-21 porcine l 02:00: heparin Robaxin No Notes: Memoria 06-21 (Same l 02:00: as:Robaxin Moy ) cefepime No Notes: Memoria 06-21 (Same as: l 01:00: Maxipime) MEDICATION WASTE Product Size: 2000 mg Product Wasted: ___ mg Metformin No Notes: Memori a hydrochlori 06-20 (Same as: l de 1000 MG 22:00: Glucophage H ermann Oral Tablet ) Take with meal gabapentin No Notes: Memor ia 06-20 (Same as: l 21:00: Neurontin) Moy 00 Zosyn No Notes: Memoria 06-20 (Same as: l 19:00: Zosyn) Dosing based on Piperacill in component MEDICATION WASTE Product Size: 3375 mg Product Wasted: ___ mg Vancomycin No 1 ea Memori a 06-20 Route: l 18:00: MISC, Moy ONCALL, Dosing Weight 129, kg, Start date: 06/20/17 13:00:00 CDT, day, Stop date: 06/20/17 13:00:00 CDT, Pharmacy to dose, ABX Indication : PUTTY PATCHER Infection/ Epidural Abcess vancomycin No 2000 mg: Me moria + sodium 06-20 infuse l chloride 18:00: over 2.5 Margo nn 0.9% 500 mL 00 hours INJ (for IV set) 500 mL MEDICATION WASTE Product Size: 1000 mg Product Wasted: ___ mg Ativan No Notes: Memoria 06-20 (Same as: l 17:28: Ativan) Moy Insulin No Notes: Memoria Lispro 06-20 Roll in l 17:07: palms of [place] 00 hands gently; Do not shake `vigorousl y. (Same as: Humalog ) "Single Patient Use Only " WASTE: F/P - Black; E - Municipal Trash Bin Stable for 28 days at room temperatur e. Expires in days from ____Date Glucagon No 1 mg, Memoria 06-20 Route: IM, l 17:07: Drug form: Moy 00 PDR/INJ, PRN, Dosing Weight 129, kg, PRN Blood Glucose Results, Start date: 06/20/17 12:07:00 CDT, Duration: 30 day, Stop date: 07/20/17 12:06:00 CDT Dextrose No 25 gm, 50 Kiko madelin 50% Syringe 06-20 mL, Route: l 17:07: IVP, Drug Form: INJ, Dosing Weight 129, kg, PRN, PRN Blood Glucose Results, Start date: 06/20/17 12:07:00 CDT, Duration: 30 day, Stop date: 07/20/17 12:06:00 CDT Robaxin No Notes: Memoria 06-20 (Same l 17:04: as:Robaxin ) Acetaminoph No Notes: Do M emoria en 325 MG / 06-20 not exceed l Hydrocodone 17:03: 4gm/day of Moy Bitartrate acetaminop 10 MG Oral hen. Tablet (Same as: [[place] 10/325] 325/10) Dilaudid No 1 mg, 1 Memori a 9- mL, Route: l 17:02: IV, Drug form: INJ, Q3H, Dosing Weight 129, kg, PRN Pain Score 6-10, Start date: 06/20/17 12:02:00 CDT, Duration: 30 day, Stop date: 07/20/17 12:01:00 CDT Tramadol No Notes: Not Mem oria 06-20 to exceed l 17:00: 400mg/day. [place] 00 (Same As: Ultram) Insulin No Notes: Memoria regular 06-20 (Same as: l 16:14: Humulin R and NovoLIN R) WASTE: F/P - Black; E - Municipal Trash Bin (Do not shake) Calcium No Notes: Memoria Gluconate 06-20 WASTE: F/P l 16:14: - Sink; E [place] 00 - Municipal Trash Bin Sodium No Notes: Memoria polystyrene 06-20 (sodium l sulfonate 16:14: polystyren He rm e sulfonate 15 gm/60 ml KEDAR) Shake well before use. (Same as: Kayexalate , SPS) Dextrose No 25 gm, 50 Kiko madelin 50% Syringe 06-20 mL, Route: l 16:14: IVP, Drug Form: INJ, Dosing Weight 129, kg, ONCE, Start date: 06/20/17 11:14:00 CDT, Stop date: 06/20/17 11:14:00 CDT gabapentin No Notes: Memor ia 300 MG Oral 06-20 (Same as: l Capsule 14:00: Neurontin) metoprolol No Notes: Memor ia tartrate 06-20 (Same as: l 14:00: Lopressor) Morphine No Notes: Memoria 06-20 (Same l 13:19: as:MORPhin e Sulfate) lisinopril Yes 20 mg = 1 Me moria 20 mg oral 06-20 tab, PO, l tablet 13:04: Daily, 0 Refill(s) Dilaudid No 0.5 mg, Memori a 06-20 0.5 mL, l 10:10: Route: IVP, Drug form: INJ, Q4H, Dosing Weight 129, kg, PRN Pain Score 7-10, Start date: 06/20/17 5:10:00 CDT, Duration: 30 day, Stop date: 07/20/17 5:09:00 CDT Saline No Notes: Memoria Flush 0.9% 06-20 (Same as: l 07:45: BD Moy Posiflush) sodium No 1,000 mL, Memori a chloride 06-20 Rate: 125 l 0.9% 1000 07:45: ml/hr, Tomer n ml INJ 00 Infuse 1,000 mL over: 8 hr, Route: IV, Dosing Weight 129.545 kg, Total Volume: 1,000, Start date: 06/20/17 2:45:00 CDT, Duration: 30 day, Stop date: 07/20/17 2:44:00 CDT Ondansetron No Notes: Kiko madelin 06-20 (Same as: l 07:45: Zofran) [place] 00 MEDICATION WASTE Product Size: 4 mg Product Wasted: ___ mg Morphine No Notes: Memoria 06-20 (Same l 07:45: as:MORPhin [place] 00 e Sulfate) Acetaminoph No Notes: Do M emoria en 06-20 not exceed l 07:45: 4 gm/day. Moy 00 (Same as: Tylenol) Morphine No Notes: Memoria 06-20 (Same as: l 03:50: MORPhine Moy 00 Sulfate) Valium No Notes: Memoria 06-20 (Same as: l 03:48: Valium) WASTE: F/P - Black; E - White/Blue sodium No 1,000 mL, Memori a chloride 06-20 Rate: 999 l 0.9% 1000 03:48: ml/hr, Tomer n ml INJ 00 Infuse 1,000 mL over: 1 hr, Route: IV, Dosing Weight 129.545 kg, Total Volume: 1,000, Start date: 06/19/17 22:48:00 CDT, Duration: 30 day, Stop date: 07/19/17 22:47:00 CDT Benadryl No Notes: Memoria 06-20 (Same as: l 03:48: Benadryl) [place] 00 Hydrocodone Hydrocodone Yes Deepthi not [facility] -Acet[facility] -Acetaminop [facility] Trazodone Trazodone Yes Deepthi [address] [facility] [address] HCl HCl [place] at bedtime [facility]ics Tizanidine Tizanidine Yes Deepthi tablet [facility] HCl HCl [facility] ent Clinics Lyrica Lyrica Yes Deepthi 1 capsule [facility] ent Clinics Vital Signs Vital Name Observation Time Observation Value Comments Source Systolic blood 2020-05-09 12:30:00 122 mm[Hg] [place] [facility] [place] pressure Diastolic blood 2020-05-09 12:30:00 70 mm[Hg] [place] [facility] pressure Heart rate 2020-05-09 12:30:00 58 /min [place] [facility] Respiratory rate 2020-05-09 12:30:00 16 /min [place] [facility] Body height 2020-05-09 12:30:00 200.7 cm [place] [facility] Body weight 2020-05-09 12:30:00 129.275 kg [place] [facility] BMI 2020-05-09 12:30:00 32.11 kg/m2 [place] [facility] Oxygen saturation in 2020-05-09 12:30:00 98 /min [place] [facility] Arterial blood by Pulse oximetry Body temperature 2020-03-31 12:50:00 35.83 Maritza [place] [facility] Weight 2017-10-02 20:30:00 [facility] [place] Height 2017-10-02 20:30:00 [facility] [place] Temperature Oral (F) 2017-10-02 20:30:00 97.6 F [facility] Heart Rate 2017-10-02 20:30:00 [facility] [place] Diastolic (mm Hg) 2017-10-02 20:30:00 Mem [facility] [place] Systolic (mm Hg) 2017-10-02 20:30:00 Kiko rial Moy Weight 2017-09-18 19:25:00 [facility] [place] BMI Calculated 2017-09-18 19:25:00 Memori al [place] Height 2017-09-18 19:25:00 200.66 cm [facility] [place] Weight 2017-09-09 20:45:00 [facility] [place] Height 2017-09-09 20:45:00 [facility] [place] Temperature Oral (F) 2017-09-09 20:45:00 98.2 F [facility] Heart Rate 2017-09-09 20:45:00 [facility] Diastolic (mm Hg) 2017-09-09 20:45:00 Mem orial [place] Systolic (mm Hg) 2017-09-09 20:45:00 Kiko rial [place] Weight 2017-08-19 19:00:00 [facility] [place] Height 2017-08-19 19:00:00 [facility] [place] Temperature Oral (F) 2017-08-19 19:00:00 97.9 F [facility] Heart Rate 2017-08-19 19:00:00 [facility] Diastolic (mm Hg) 2017-08-19 19:00:00 Mem orial [place] Systolic (mm Hg) 2017-08-19 19:00:00 Kiko rial [place] Weight 2017-08-12 18:30:00 [facility] Height 2017-08-12 18:30:00 [facility] [place] Temperature Oral (F) 2017-08-12 18:30:00 98.1 F [facility] Heart Rate 2017-08-12 18:30:00 [facility] Diastolic (mm Hg) 2017-08-12 18:30:00 Mem o[facility] [place] Systolic (mm Hg) 2017-08-12 18:30:00 Kiko rial [place] Weight 2017-08-05 19:30:00 [facility] [place] Height 2017-08-05 19:30:00 [facility] Temperature Oral (F) 2017-08-05 19:30:00 978 F [facility] [place] Heart Rate 2017-08-05 19:30:00 [facility] Diastolic (mm Hg) 2017-08-05 19:30:00 [facility] o[facility] [place] Systolic (mm Hg) 2017-08-05 19:30:00 Kiko rial [place]oy Weight 2017-07-22 18:15:00 [facility] [place] Height 2017-07-22 18:15:00 [facility] [place] Temperature Oral (F) 2017-07-22 18:15:00 98.3 F [facility] Heart Rate 2017-07-22 18:15:00 [facility] Diastolic (mm Hg) 2017-07-22 18:15:00 Mem orial [place] Systolic (mm Hg) 2017-07-22 18:15:00 Kiko rial [place] Respitory Rate 2017-07-05 00:47:00 Memori al [place] Systolic (mm Hg) 2017-07-04 21:00:00 Kiko rial Moy Diastolic (mm Hg) 2017-07-04 21:00:00 Mem orial [place] Respitory Rate 2017-07-04 21:00:00 Memori al Moy Temperature Oral (F) 2017-07-04 21:00:00 97.6 F [facility] [place] Heart Rate 2017-07-04 21:00:00 [facility] [place] Systolic (mm Hg) 2017-07-04 17:00:00 Kiko rial Moy Diastolic (mm Hg) 2017-07-04 17:00:00 Mem orial [place] Temperature Oral (F) 2017-07-04 17:00:00 97.9 F [facility] [place] Heart Rate 2017-07-04 17:00:00 [facility] [place] Systolic (mm Hg) 2017-07-04 13:10:00 Kiko rial [place] Diastolic (mm Hg) 2017-07-04 13:10:00 Mem orial [place] Heart Rate 2017-07-04 13:10:00 [facility] [place] Temperature Oral (F) 2017-07-04 13:10:00 98.5 F [facility] Respitory Rate 2017-07-04 12:43:00 [facility] al [place] Weight 2017-06-20 08:10:00 [facility] BMI Calculated 2017-06-20 08:10:00 Memori al [place] Height 2017-06-20 08:10:00 200.66 cm [facility] Heart Rate 2017-06-20 04:48:00 [facility] Systolic (mm Hg) 2017-06-20 04:48:00 Kiko rial Moy Diastolic (mm Hg) 2017-06-20 04:48:00 Mem o[facility] [place] Respitory Rate 2017-06-20 04:48:00 [facility] al [place] Weight 2017-06-19 21:51:00 [facility] BMI Calculated 2017-06-19 21:51:00 Memori al [place] Height 2017-06-19 21:51:00 200.66 cm [facility] Temperature Oral (F) 2017-06-19 21:51:00 98.2 F [facility] [place] Respitory Rate 2017-06-19 21:51:00 Memori al [place] Heart Rate 2017-06-19 21:51:00 [facility] [place] Systolic (mm Hg) 2017-06-19 21:51:00 Kiko rial [place] Diastolic (mm Hg) 2017-06-19 21:51:00 Mem orial M[place] Procedures Procedure Date / Time Performing Clinician Source Performed COVID-19 QUALITATIVE PCR 2020-05-18 10:30:00 Leroy Allen [facility] URINE CULTURE 2020-05-09 12:35:00 Charlotte Ochoa [facility] TYPE AND SCREEN 2020-05-09 12:16:00 Charlotte Ochoa [facility] BASIC METABOLIC PANEL 2020-05-09 12:16:00 Charlotte Ochoa on [facility] HC COMPLETE BLD COUNT 2020-05-09 12:16:00 Charlotte Ochoa on [facility] W/AUTO DIFF ESTIMATED GFR 2020-05-09 12:16:00 Charlotte Ochoa [facility] URINALYSIS SCREEN AND 2020-05-09 12:15:00 Charlotte Ochoa on [facility] MICROSCOPY, WITH REFLEX TO CULTURE CRYSTAL ANALYSIS 2020-04-28 19:40:00 Leroy Allen Met [facility]ist CELL COUNT AND 2020-04-28 19:40:00 Leroy Allen Meth odist DIFFERENTIAL, BODY FLUID DC ARTHROCENTESIS 2020-04-28 10:45:00 Leroy Allen Me thodist ASPIR&/INJ MAJOR JT/BURSA W/O US COVID-19 QUALITATIVE PCR 2020-04-14 11:20:00 Pedro Esquivel SEDIMENTATION RATE 2020-04-14 11:09:00 Pedro Esquivel C-REACTIVE PROTEIN 2020-04-14 11:09:00 Pedro Esquivel ECG PRE/POST OP 2020-03-31 13:57:45 Marly Morales ethodist URINE CULTURE 2020-03-31 13:55:00 Marly Morales ethodist URINALYSIS SCREEN AND 2020-03-31 13:55:00 Marly Morales [facility] MICROSCOPY, WITH REFLEX TO CULTURE TYPE AND SCREEN 2020-03-31 13:45:00 Marly Morales ethodist PARTIAL THROMBOPLASTIN 2020-03-31 13:45:00 Marly Morales TIME (PTT) PROTHROMBIN TIME WITH INR 2020-03-31 13:45:00 Marly Morales CBC HEMOGRAM 2020-03-31 13:45:00 Marly Morales ethodi HEMOGLOBIN A1C 2020-03-31 13:45:00 Marly Moralesodist BASIC METABOLIC PANEL 2020-03-31 13:45:00 Marly Morales ESTIMATED GFR 2020-03-31 13:45:00 Marly Morales ethodist XR KNEE 3 VW LEFT 2020-03-17 10:21:[address] LOWER EXTREMITY WO 2019-07-21 12:03:36 Leroy Allen n [facility] CONTRAST LEFT XR TIBIA FIBULA 2 VW LEFT 2019-07-16 09:03:34 Leroy Allen XR TIBIA FIBULA 2 VW LEFT 2019-06-08 14:04:58 Leroy Allen XR KNEE 3 VW LEFT 2019-06-08 13:16:38 Leroy Allen Ma thodist XR LEG LENGTH EVALUATION 2019-06-08 13:16:15 Leroy Allen Arthroscopy<sup>1</sup> [facility] Laminectomy with spinal [facility] fusion Plan of Care Planned Activity Planned Date Details Comments Source Future Scheduled Test 2020-05-20 [facility]:00 [code = INFLUENZA VACCINE] Future Scheduled Test 2008 COLONOSCOPY SCREENING [facility] 00:00:00 [code = COLONOSCOPY SCREENING] Future Scheduled Test 2008 [facility]:00:00 (#1) [code = SHINGLES VACCINES (#1)] Future Scheduled Test 1968 DIABETIC FOOT EXAM [facility] 00:00:00 [code = DIABETIC FOOT EXAM] Future Scheduled Test 1968 URINE MICROALBUMIN [facility] 00:00:00 [code = URINE MICROALBUMIN] Future Scheduled Test 1958 DIABETIC RETINAL EYE [facility] 00:00:00 EXAM [code = DIABETIC RETINAL EYE EXAM] Future Appointment 2020-05-22 Leroy Allen MD, [address] 07:30:[address]; [address], [place] [address] Future Appointment 2020-05-22 Leroy Allen MD, [address] 07:30:[address]; [address], [place] [address] Future Appointment 2020-05-22 Charlotte Abadlucy LANTIGUA, [place] [facility] 07:30:00 [address]; [address], [place] [address] Encounters Start End Encounter Admission Attending Care Care Encounter Source Date/Time Date/Time Type Type Clinicians Facility Department ID 2020-05-18 2020-05-18 Outpatient [facility]O [facility] [id number] [place] 00:00:00 00:00:[address] 2020-05-09 2020-05-09 Outpatient [facility]AN[facility]O [facility] [id number] [place] 00:00:00 00:00:[address] 2020-04-28 2020-04-28 Outpatient [facility]JANDRO [facility] [id number] [place] 00:00:00 00:00:[address] 2020-04-28 2020-04-28 Outpatient [facility]ANDRO [facility] [id number] [place] 00:00:00 00:00:[address] 2020-04-14 2020-04-14 Outpatient INCAVMilagros [facility] [id number] [place] 00:00:00 00:00:00 PEDRO [address] 2020-04-11 2020-04-11 Outpatient [facility]AN[facility]O [facility] [id number] [place] 00:00:00 00:00:[address] 2020-04-05 2020-04-05 [facility] [id number] [facility]00 [facility] Out[facility] Clinics 2020-03-31 2020-03-31 Outpatient [facility]AN[facility]O [facility] [id number] [place] 00:00:00 00:00:[address] 2020-03-17 2020-03-17 Outpatient [facility]AN[facility]O [facility] [id number] [place] 00:00:00 00:00:[address] 2020-03-17 2020-03-17 Outpatient LEROY ALLEN [facility] [id number] [place] 00:00:00 00:00:00 685 Lemuel lyons 2019-10-26 2019-10-26 Outpatient MARTHA KapoorSCHER MHMISCHER [id number] 08:15:00 23:59:59 Torres 05 Scott 2019-10-26 2019-10-26 Outpatient MARTHA KapoorSCHMARCELO MHMISCHER [id number] 08:15:00 08:15:00 Torres Gideon Chavez 2019-10-04 2019-10-04 [facility] [id number] [facility] 11:00:00 11:00:00 [facility] Medicine Outpati ent Clinics 2019-09-27 2019-09-27 [facility] [id number] [facility] [facility] 11:00:00 11:00:00 [facility] Medicine Outpati ent Clinics 2018-10-21 2018-10-21 [facility] [id number] 15:45:00 15:45:00 [facility] Medicine Outpati ent Clinics 2018-09-17 2018-09-17 [facility] [id number] 14:35:00 14:35:00 [facility] Medicine Outpati ent Clinics 2018-06-04 2018-06-04 Outpatient MARTHA WilsonSCHER MHMISCHER [id number] 09:00:00 09:00:00 Pat 03 2017-10-02 2017-10-02 Outpatient [facility] [id number] [facility]inic 14:30:00 14:30:00 NOCTURNIS [facility]CTURNISTS [employer] 2017-09-18 2017-09-18 Outpatient MARTHA MercadoSCHMARCELO MHMISCHER [id number] 09:45:00 23:59:59 Akbar Carnes 2017-09-09 2017-09-09 Outpatient [facility] [id number] eClinic 14:45:00 14:45:00 NOCTURNIS [facility]URNISTS [employer] 2017-09-05 2017-09-05 Outpatient CYNTHIA Amaral [facility] [id number] 07:48:00 23:59:00 Harita 03 2017-08-19 2017-08-19 Outpatient [facility] [id number] eClinic 14:00:00 14:00:00 NOCTURNIS [facility] [employer] 2017-08-12 2017-08-12 Outpatient [facility] [id number] eClinic 13:30:00 13:30:00 NOCTURNIS NOCTURNISTS [employer] 2017-08-05 2017-08-05 Outpatient [facility] [id number] eClinic 14:30:00 14:30:00 NOCTURNIS NOCTURNISTS [employer] 2017-07-22 2017-07-22 Outpatient [facility] [id number] eClinic 13:15:00 13:15:00 NOCTURNIS NOCTURNISTS [employer] 2017-07-14 2017-07-14 Outpatient [facility] [id number] 09:58:00 23:59:00 Colby Nicole 68 2017-06-20 2017-07-04 Outpatient Daron [facility] [id number] 15:23:00 21:15:00 Pete 44 2017-06-19 2017-06-20 Outpatient Stoney, PL [facility] [id number] 16:40:00 00:38:00 Poppy 02 Jennifer Results Test Description Test Time Test Comments Results Result Comments Source Type and screen 2020-05-09 14:22:00 Test Item Value Reference Range Interpretation Comme nts ABO grouping (test code = 883-9) A Rh type (test code = 34589-4) POS Antibody screen (gel) (test code = 890-4) NEG [place] [facility] and [facility], with reflex to culture 2020-05-09 14:08:28 Test Item Value Reference Range Interpretation Comments Specimen site (test code = Clean catch 2624884) Color, UA (test code = 5778-6) Straw Appearance, UA (test code = Clear 5767-9) Specific gravity, UA (test code = 1.004 1.001-1.035 5811-5) pH, UA (test code = 5803-2) 6.0 5.0-8.5 Protein, UA (test code = 87956-6) Negative Negative Glucose, UA (test code = 90637-7) Negative Negative Ketones, UA (test code = 2514-8) Negative Negative Bilirubin, UA (test code = Negative Negative 5770-3) Blood, UA (test code = 5794-3) Negative Negative Nitrite, UA (test code = 5802-4) Negative Negative Urobilinogen, UA (test code = <2.0 <2.0 64004-0) Leukocyte esterase, UA (test code Negative Negative = 5799-2) WBC, UA (test code = 5821-4) None seen 0- 1 /HPF RBC, UA (test code = 83244-9) None seen 0- 5 /HPF Bacteria, UA (test code = None seen None seen 53775-3) Yeast, UA (test code = 09429-8) None seen Yeast with pseudohyphae, UA (test None seen code = 03789-0) [facility] [id number] 14:03:08 Test Item Value Reference Range Interpretation Comments Sodium (test code = 2951-2) 141 135- 148 mEq/L Potassium (test code = 2823-3) 4.9 3.5- 5.0 mEq/L Chloride (test code = 2075-0) 103 98- 112 mEq/L CO2 (test code = 8-9) 25 24- 31 mEq/L Anion gap (test code = 98192-3) 13@ANIO 7- 15 mEq/L BUN (test code = 3094-0) 16 mg/dL 8-23 Creatinine (test code = 2160-0) 1.18 mg/dL 0.7-1.2 Glucose (test code = 2345-7) 87 mg/dL 65-99 Calcium (test code = 57115-9) 9.0 mg/dL 8.8-10.2 Jerry MethodistEstimated [id number] 14:03:08 Test Item Value Reference Range Interpretation Comments Estimated GFR (test 76 mL/min/1.73 m2 [facility] code = 5488) InterpretationG 1 >=90 Normal or highG2 60-89 Mildly remoenjzkS2e 45-59 Mildly to mode rately ogsbzlhvmM1t 30-44 Moderately to severely decreasedG4 15-29 Severely decre asedG5 <15 Kidn ey failureThe eGFR was calculated ana [place] the Chronic Kidney Disease Epidemiology Co llaboration (CKD-EPI) equat ion. Interpretation is based on recommendations of the National Kidney Foundation-Kidn ey Disease Outcomes Qualit y Initiative (NKF-KDOQI) pub lished in 2014. Jerry HyattUrine [id number] 13:52:55 Test Item Value Reference Range Interpretation Comments Urine culture (test SEE COMMENT Bacteriu madelin screen code = 2775327) negative. Jerry MethodistCBC with platelet and [id number] 13:36:26 Test Item Value Reference Range Interpretation Comments WBC (test code = 89548-6) 2.91 4.50- 11.00 k/uL L RBC (test code = 74060-8) 4.86 m/uL 4.4-6 HGB (test code = 718-7) 12.7 g/dL 14-18 L HCT (test code = 4544-3) 40.8 % 41-51 L MCV (test code = 787-2) 84.0 fL 82-100 MCH (test code = 785-6) 26.1 pg 27-34 L MCHC (test code = 786-4) 31.1 g/dL 31-37 RDW - SD (test code = 42.6 fL 37-55 74296-3) MPV (test code = 53199-8) 10.2 fL 8.8-13.2 Platelet count (test code 192 150- 400 k/uL = 09586-1) Nucleated RBC (test code 0.00 /100 WBC = 73862-4) Neutrophils (test code = 35.1 % 39-69 L 01288-0) Lymphocytes (test code = 52.9 % 25-45 H 80422-2) Monocytes (test code = 10.0 % 0-10 09940-0) Eosinophils (test code = 1.4 % 0-5 80594-8) Basophils (test code = 0.3 % 0-1 03655-1) Immature granulocytes 0.3 % 0-1 "Immat ure (test code = 62871-3) granul ocytes" (promyelocytes, myelocytes, metamyelocytes) Lab Interpretation (test Abnormal code = 49745-8) Jerry MethodistCell count and differential, body [id number] 21:38:39 Test Item Value Reference Range Interpretation Comments Misc fluid type (test code = Synovial Left Knee 53283-3) Color, fluid (test code = 6824-7) Red Appearance, fluid (test code = Hazy 9335-1) RBC, fluid (test code = 15617-6) 892648 /CMM Nucleated cells, fluid (test code = 561 /CMM 78177-3) Fluid mononuclear cell (test code = See Diff 1407) Neutrophils, fluid (test code = 63 % 49703-3) Lymphocytes, fluid (test code = 16 % 32313-5) Eosinophils, fluid (test code = 4 % 72457-2) Macrophages, fluid (test code = 17 % 00342-7) Jerry MethodistCrystal qasohitl3108-97-39 21:24:04 Test Item Value Reference Range Interpretation Comments Crystal analysis specimen type Knee (test code = 1160) Monosodium urate (test code = None seen None seen 4200603) CPPD crystals (test code = 1135) None seen None seen [facility]throcent[facility]: knee, L ibab8553-57-14 10:45:00 Leroy Allen MD 04/29/2020 5:54 PMLarge Joint Arthrocentesis: knee, L kneeConsent given by: patientSite marked: site markedTimeout: Immediately prior to procedure a time out was called to verifythe correct patient, procedure, equipment, clerical and office support workers and site/side marked as required Supporting DocumentationIndications: diagnostic evaluation Procedure DetailsPreparation: Patient was prepped and draped in the usual sterile fashionUltrasound guided: noPlatelet Rich Plasma Used: no PRP UsedLocation: knee - L knee Left side:Needle size: 20 GApproach: superiorAspirate amount: 6 mLAspirate: serousand bloodyAnalysis: fluid sent for laboratory analysisPatient tolerance: patient tolerated the procedure well with no immediate complicationsJerry Hyatt Sedimentation ewxt2324-00-20 12:31:02 Test Item Value Reference Range Interpretation Comments Sedimentation rate (test code = 16 0- 10 mm/hr H 19526-4) Lab Interpretation (test code = Abnormal 84843-0) Jerry HyattC-reactive wylkkgw7094-10-57 12:04:13 Test Item Value Reference Range Interpretation Comments CRP (test code = 1988-) 0.69 mg/dL 0-0.5 H Lab Interpretation (test code = Abnormal 90898-4) Jerry MethodistECG Pre/Post Vb5960-97-20 07:59:37 Test Item Value Reference Range Interpretation Comments Ventricular rate (test 51 code = 253) Atrial rate (test code 51 = 255) DC interval (test code 164 = 266) QRSD interval (test 104 code = 260) QT interval (test code 448 = 264) QTC interval (test code 412 = 265) P axis 1 (test code = 61 267) QRS axis 1 (test code = -41 268) T wave axis (test code 27 = 270) EKG impression (test Sinus bradycardia-Left code = 273) axis deviation-Abnormal ECG-In automated comparison with ECG of 08-MAR-2019 15:44,-Nonspecific T wave abnormality no longer evident in Lateral leads- Jerry MethodistHemoglobin D8s8470-59-61 16:58:52 Test Item Value Reference Range Interpretation Comments Hemoglobin A1C (test 6.3 % 4-5.6 H HbA1c c utoffs for code = 96515-8) diagnosing diabetes:4.0% - 5.6% = normal5.7% - 6.4% = increased risk for diabetes (prediabetes)9> =6.5% = ouadlfec5Bslu s for glycemic contro l (ADA 2016)< 7.0% Ta rget for non adults with david betes. More or less stringent targe ts may be appropriate for individual darien ents. <7.5% Target for Children and adolescents wit h type 1 diabetes. Lab Interpretation (test Abnormal code = 29784-3) Jerry HdezistPartial thromboplastin time, yviziwqjd3353-77-68 16:09:16 Test Item Value Reference Range Interpretation Comments PTT (test code = 31.3 23.0- 36.0 [place] [address]-7) unfractionated heparin is61.0-112.0 se conds which corresponds to Anti-Xa0.3-0.7 U/ml. Jerry MethodistProthrombin time with SQJ0331-25-29 16:00:58 Test Item Value Reference Range Interpretation Comments Prothrombin time (test 14.3 11.5- 14.5 sec code = 5902-2) INR (test code = 1.1 The Interna tional 88160-2) Normalized Rati o (INR) is a therapeutic m onitoring tool for patien ts who are stable on oral anticoagulant t herapy. An INR of 2.0-3.0 is suggested for d eep vein thrombosis/pulm onary embolism. [place] [facility] xgqbdftb0143-11-48 15:47:21 Test Item Value Reference Range Interpretation Comments WBC (test code = 98748-4) 3.26 4.50- 11.00 k/uL L RBC (test code = 86343-0) 5.15 m/uL 4.4-6 HGB (test code = 718-7) 13.5 g/dL 14-18 L HCT (test code = 4544-3) 43.5 % 41-51 MCV (test code = 787-2) 84.5 fL 82-100 MCH (test code = 785-6) 26.2 pg 27-34 L MCHC (test code = 786-4) 31.0 g/dL 31-37 RDW - SD (test code = 02157-8) 42.3 fL 37-55 MPV (test code = 03668-7) 10.9 fL 8.8-13.2 Platelet count (test code = 191 150- 400 k/uL 04546-5) Nucleated RBC (test code = 0.00 /100 WBC 03402-4) Lab Interpretation (test code = Abnormal 44183-9) [place] MethodistCHEM PPJPZ1175-72-78 15:27:0088[facility] HermannCHEM PANEL 2017-07-01 15:27:004.2[facility]annCHEM XNTYR9668-43-81 15:27:0096[facility]annCHEM MHQWK3598-89-10 15:27:0030[facility] HermannCHEM LKHGI1099-05-88 15:27:008.8[facility] HermannCHEM XTADE1021-49-80 15:27:46565Terjcxmq HermannCHEM EYCES5274-16-17 15:27:0012[facility] HermannCHEM PFQYR2515-28-24 15:27:000.95 [facility] HermannCHEM CQZAN7970-06-25 15:27:25798Ewzolczg HermannCHEM PANEL 2017-07-01 15:27:0013.2[facility] CfyaccxLJSKPHDWUO4915-26-51 15:27:0032.6[facility] JnubhjrDNOWSSJFKW7866-16-59 15:27:00 Test Item Value Reference Range Interpretation Comments MCH (test code = MCH) 26.3 pg 27.0-31.0 [facility] KnlgpkiMQGHZUIIML2156-78-49 15:27:0080.5[facility] HermannHEMATOLOGY 2017-07-01 15:27:0031.2[facility] CxznagvEWXGNFQZAR0468-77-35 15:27:0010.2[facility] ZropquxSTJEWAVHZJ7153-43-08 15:27:003.87[facility] VuaowrsRGHECDWVAP3944-52-70 15:27:007.5[facility] WxfbtbdEWBLOPTHOJ8418-95-41 15:27:91271Jmwsseey Berthoud PGPCAYIDEK0449-69-78 15:27:0014.7[facility] CepmiziTCVLHGHXOZ9968-05-61 15:27:00 4.9[facility] ExvilxzHGEBYZNNCK9558-76-53 15:27:000.2[facility] HermannHEMATOLOGY 2017-07-01 15:27:000.2[facility] AkuffpgLOWOQTHIDI6366-80-79 15:27:000.7[facility] AgdnwvhZDPFOVLMST9359-19-91 15:27:003.8[facility] YtaszgfQRTVSAWZUR3817-22-77 15:27:004.9[facility] WhwlasfSBGRVSGPDL1558-88-81 15:27:001.4[facility] KNPDYWOVYY3577-64-37 15:27:003.0[facility] DlfhebdJLTHURPKTE4509-14-24 15:27:00 29.4[facility] XwvmtvhAEBAUKGRYY8694-50-30 15:27:0061.2[facility] HermannHEMATOLOGY 2017-06-30 14:00:0014.5[facility] VricbizHZRHAHHDHN8419-06-09 14:00:007.2[facility] UffazetWDYJSVHKEG9304-26-39 14:00:62195Ipdoeeyd FphluhfYIWSUXKRMH9265-61-39 14:00:0029.3[facility] FktjqwvDFPZCRSLVO4150-99-03 14:00:003.59[facility] YGEQCDYGRE8811-96-08 14:00:009.6[facility] UenwrdbGFPWAAHMEJ6351-78-36 14:00:005.5 [facility] WnmefklAHARLHOIRV5314-19-52 14:00:0032.7[facility] HermannHEMATOLOGY 2017-06-30 14:00:0081.5[facility] JydvgemIDAFVQFISY7891-26-09 14:00:00 Test Item Value Reference Range Interpretation Comments MCH (test code = MCH) 26.7 pg 27.0-31.0 [facility] YvecvcrBPEMCRAGMI2290-67-81 14:00:001.7[facility] HermannHEMATOLOGY 2017-06-30 14:00:000.3[facility] JbfqnxxKEUOYOQVFI9950-64-67 14:00:000.2[facility] EcrvxcqOYXMPSTKEH5274-45-29 14:00:000.8[facility] GokwxarOKKEXBBEJN4498-92-65 14:00:003.2[facility] OqgtskcIJHOWDYQMG3405-43-29 14:00:005.9[facility] LESIMBWMTQ9732-49-63 14:00:003.0[facility] QicsmwgZEDOOJUGDQ7138-16-61 14:00:00 31.6[facility] AgstdxlNIOYOPIISB7429-85-11 14:00:0058.7[facility] HermannCHEM PANEL 2017-06-28 10:55:07430Kennwhxs HermannCHEM XBSLL0046-96-92 10:55:0010.3[facility] HermannCHEM DMWXX6782-23-15 10:55:006.3[facility] HermannCHEM FUXVQ2680-88-26 10:55:0099[facility]annCHEM MRXYW8986-24-51 10:55:000.54[facility] HermannCHEM SNJIQ0954-75-91 10:55:007[facility]annCHEM MTFFZ5247-95-72 10:55:27510 [facility]annCHEM HPVVH8533-46-93 10:55:003.3[facility] HermannCHEM PANEL 2017-06-28 10:55:0023[facility] HermannCHEM KVZOO1209-96-51 10:55:98389Iwoecphs WwbshijMPAVMSSVNL2193-53-35 10:55:007.3[facility] CvcngqdVQRDYANPIA0560-83-21 10:55:003.18[facility] RiabcbdTITEGUGOJB7338-77-43 10:55:99098Pqhnpbdd Moy EIVNVQMBRI2347-42-31 10:55:0014.7[facility] KkvehbkNPJQCQAGYL8331-64-72 10:55:00 7.5[facility] WcoexltZTZCZBQDBJ2704-83-57 10:55:0026.0[facility] HermannHEMATOLOGY 2017-06-28 10:55:008.5[facility] DfxuvcyUENRXVZEOY7487-37-32 10:55:0081.9[facility] QngyukcDPTQRTBWZG3022-25-12 10:55:00 Test Item Value Reference Range Interpretation Comments MCH (test code = MCH) 26.8 pg 27.0-31.0 [facility] UvsmvkyODNRPUTYWH6660-62-76 10:55:0032.8[facility] HermannHEMATOLOGY 2017-06-28 10:55:000.5[facility] RtffldtMEIDVQWFNK6627-15-00 10:55:000.3[facility] QwmxqdrBTQTUGYLXM0022-55-21 10:55:001.0[facility] EfcywspHELAFHHQQK8777-87-86 10:55:005.9[facility] FnxoycyOMAFAJBCXK6212-33-36 10:55:000.1[facility] CNNHBZSVLA7024-35-33 10:55:001.3[facility] OwmeuzvQSMVQTERSC0301-88-28 10:55:00 80.5[facility] JvwpfkeGDDTVQUQFJ0385-55-78 10:55:003.9[facility] HermannHEMATOLOGY 2017-06-28 10:55:0013.8[facility] HermannBLOOD BANK ZYBUJOS7448-10-13 14:20:00 Negative (06/27/17 9:20 AM)[facility]annCHEM BYYOF2644-36-71 23:15:002.9 [facility]annCHEM WTZJL8118-46-65 23:15:002.5[facility] HermannCHEM PANEL 2017-06-26 23:15:0095[facility]annCHEM HCJAH4321-12-70 23:15:0028[facility]annCHEM SKRFZ8863-61-26 23:15:008.5[facility]annCHEM GFRDJ8723-22-14 23:15:0043[facility]annCHEM SULHD1441-78-61 23:15:0026[facility] HermannCHEM PPWUK9209-02-72 23:15:002.1[facility]annCHEM ZQOGI2961-24-09 23:15:007.2 [facility]annCHEM BNBRF8403-72-35 23:15:000.2[facility] HermannCHEM PANEL 2017-06-26 23:15:17565Ybvntlqy HermannCHEM SSMZP8854-58-82 23:15:001.00[facility] HermannCHEM PHBHV9492-40-87 23:15:81142Okobvnex HermannCHEM TOUAE8311-57-71 23:15:10031Aefuvipd [facility]annCHEM JBZBF9530-70-98 23:15:004.1[facility] HermannCHEM IWDOB9724-58-66 23:15:009[facility]annCHEM QHURC3574-65-69 23:15:17191 [facility]annCHEM KNWEC3088-92-25 23:15:0011.1[facility] HermannCHEM PANEL 2017-06-26 23:15:009[facility]annCHEM LRTQM2566-78-74 23:15:000.4[facility] HermannCHEM OADPU2836-14-01 23:15:005.1[facility] BcdfinfMUFNDPGPMT7749-79-92 23:15:001.12[facility] McqwurfGWOORRYEYC0564-52-35 23:15:00 Test Item Value Reference Range Interpretation Comments PT (test code = PT) 14.6 s 12.0-14.7 [facility] UldtfbdFYAYKSWBIO2752-50-24 23:15:000.1[facility] HermannHEMATOLOGY 2017-06-24 10:39:000.1[facility] HermannCHEM FEMXU2489-20-32 16:20:002.7[facility] MyrxwziLFAAKUXUNI0875-12-54 16:20:000.1[facility] HermannCHEM HHRHN6583-44-88 12:48:001.56[facility] YpattdzSJDMHBCYBV8402-63-42 04:06:0016.3[facility] CHEM WNMHV5468-82-85 09:49:002.6[facility] NifwxbhGEWRZZGNPD4461-62-05 09:49:00 Clumped (06/21/17 4:49 AM)[facility] NodaweyFCWCYOKLWK7988-99-34 09:49:0097[facility] HermannCARDIAC GGHUIBU0836-87-97 21:14:50814Rmlsmswb HermannCARDIAC ENZYMES 2017-06-20 21:14:000.8[facility] HermannCARDIAC IRZENYY2050-83-35 21:14:00<0.02 [facility]annCARDIAC BRFRWMF8127-12-53 21:14:000.5[facility] HermannIMMUNOLOGY 2017-06-20 21:14:89847.0[facility] HermannCARDIAC AAFLPWH7770-69-27 16:51:000.9 [facility]annCARDIAC NNZRVGA5084-41-33 16:51:00<0.02[facility] CARDIAC BVDFWQR9749-21-19 16:51:0095[facility] HermannCARDIAC RVJKZWC5246-73-75 13:33:000.7[facility] HermannCARDIAC XJCKAVV8260-78-47 13:33:000.7[facility] CARDIAC GSWFAUB4823-63-11 13:33:00<0.02[facility] HermannCARDIAC ENZYMES 2017-06-20 13:33:39959Rgnhjwnb HermannCHEM KPDPC3161-15-50 13:33:001.3[facility] HermannCHEM LFERL2906-18-73 13:33:84469Grmoxxxa HermannCHEM WTWCQ4309-79-93 13:33:000.7[facility] HermannCHEM BHWZD3111-13-11 13:33:0055[facility] HermannCHEM WXZFC7172-43-00 13:33:0040[facility] HermannCHEM AZZIF7839-40-14 13:33:004.9 [facility]annCHEM RSUTU7460-15-36 13:33:003.2[facility] HermannCHEM PANEL 2017-06-20 13:33:008.1[facility] HermannCHEM FPMFM3047-51-48 13:33:0017[facility]annURINE AND PULOO3522-61-56 04:49:00Negative (06/19/17 11:49 PM)[facility]UR[facility] AND QICMN4696-47-75 04:49:00 Test Item Value Reference Range Interpretation Comments UA pH (test code = UA pH) 6.0 1 5.0-8.0 [facility] AND PSNBE2694-24-92 04:49:00Clear (06/19/17 11:49 PM) [facility] SDRHQ4249-15-33 04:49:00<=1.005 *NA*(06/19/17 11:49 PM)[facility] UMLKD8865-97-77 04:49:00Yellow *NA*(06/19/17 11:49 PM)[facility] EJYPF8227-96-69 04:49:00None Seen (06/19/17 11:49 PM)[facility] YLBUG0191-84-33 04:49:00None Seen (06/19/17 11:49 PM)[facility] UJJMV9379-55-41 04:49:00Negative (06/19/17 11:49 PM) [facility] OHITZ3597-81-88 04:49:00None Seen (06/19/17 11:49 PM) [facility] KJSXU8569-39-77 04:49:00Negative (06/19/17 11:49 PM) [facility] UNYWQ3801-59-31 04:49:00Negative (06/19/17 11:49 PM) [facility] OWAFP8841-03-94 04:49:000.2[facility]UR[facility] AND MJIID4399-98-79 04:49:00Negative *NA*(06/19/17 11:49 PM)[facility] DCTMM7013-63-36 04:49:00Negative *NA*(06/19/17 11:49 PM)[facility] OSAQF7573-82-57 04:49:00Negative (06/19/17 11:49 PM)[facility]annCHEM PANEL 2017-06-20 04:31:0017[facility] HermannCHEM JCMOZ0992-20-45 04:31:005.3[facility] HermannCHEM BNRDJ0679-96-28 04:31:000.6[facility] HermannCHEM RFKCZ9082-57-37 04:31:009.5[facility]annCHEM DDIVT3035-29-11 04:31:0012[facility] HermannCHEM ULBFB5710-29-21 04:31:0086[facility] HermannCHEM UXKSA4194-45-11 04:31:000.4 [facility]annCHEM WBWXA9828-48-74 04:31:008.5[facility] HermannCHEM PANEL 2017-06-20 04:31:0094[facility] HermannCHEM YGDJD4878-02-91 04:31:0030[facility] HermannCHEM GXIHA0347-65-18 04:31:008.8[facility] HermannCHEM VNRJK0072-73-39 04:31:0048[facility] HermannCHEM RAZJQ8718-02-25 04:31:003.2[facility]annCHEM CDZNJ2230-55-12 04:31:41697Mdpwdzeu HermannCHEM WMEGL8502-19-77 04:31:004.5 [facility]annCHEM YUWXE0698-23-10 04:31:0019[facility] HermannCHEM PANEL 2017-06-20 04:31:35981Jzigjirs HermannCHEM TXKKF4058-31-60 04:31:001.09[facility] HermannCHEM TSVDT9694-83-72 04:31:52741Lqmnpwcv TdadbbaTHEDQFLIBI3141-52-21 04:31:00Normal (06/19/17 11:31 PM)[facility] DsghioxSSBYGVCFYZ6283-76-95 04:31:00 Normal (06/19/17 11:31 PM)[facility] QkvmbpoURJVNLGNMY4029-96-95 04:31:0074.0 [facility] LipcfnxHQOMZWTMGC8729-03-37 04:31:0012.6[facility] HermannHEMATOLOGY 2017-06-20 04:31:005.0[facility] MrpsdiaYADUYQWYMV9030-04-23 04:31:0013.0[facility] JingynaRXAQXGYLSD2895-49-00 04:31:007.0[facility] KpbpzbmRIZJQJJHKS1131-31-67 04:31:001.0[facility] MjkiucpQMHDZXDHLV0673-64-47 04:31:000.8[facility] YHPVZCWVRM9642-83-19 04:31:002.0[facility] DhbgbtvLISDLPVCPM1917-23-52 04:31:00 37.7[facility] VpvhieuAIUKEVRUOO8680-67-72 04:31:0080.7[facility] HermannHEMATOLOGY 2017-06-20 04:31:0032.5[facility] AvkrtkaXWKTVFLWCB1873-41-89 04:31:00 Test Item Value Reference Range Interpretation Comments MCH (test code = MCH) 26.2 pg 27.0-31.0 [facility] RiegvnhJWIVZBRIWT3844-38-32 04:31:0014.3[facility] HermannHEMATOLOGY 2017-06-20 04:31:007.9[facility] DijlqpkCEMZLMEKLE8841-16-87 04:31:16073Qcuflitb QreleevDXSTBNVOEF0816-82-50 04:31:0012.2[facility] TrobmnuJCGILZMHFW9156-92-90 04:31:004.67[facility] OreqrkkZWZNFMFQIS7394-82-03 04:31:0015.5[facility] MOLECULAR HFCODAMMDB1911-55-94 04:31:00Not Detected (06/19/17 11:31 PM)[facility] HermannMOLECULAR MDZXTCQDAS1327-89-00 04:31:00Not Detected (06/19/17 11:31 PM) [facility]annMOLECULAR ZHSSMDGCHA7366-94-95 04:31:00Not Detected (06/19/17 11:31 PM)[facility]annMOLECULAR GDPCOJCJIT1201-10-08 04:31:00Not Detected (06/19/17 11:31 PM)[facility]annMOLECULAR HRKHWQWSTW0683-24-98 04:31:00Not Detected (06/19/17 11:31 PM)[facility]annMOLECULAR DHXAVNOLVP6064-45-04 04:31:00Not Detected (06/19/17 11:31 PM)[facility]annMOLECULAR DIAGNOSTIC 2017-06-20 04:31:00Detected *ABN*(06/19/17 11:31 PM)[facility]annMOLECULAR FGAQQTOWLP8668-73-20 04:31:00Not Detected (06/19/17 11:31 PM)[facility] MOLECULAR GWUTATXALI7223-83-95 04:31:00Not Detected (06/19/17 11:31 PM)[facility]annMOLECULAR RICYXOKMKR3960-00-56 04:31:00Detected *ABN*(06/19/17 11:31 PM) [facility]annMOLECULAR DDPMXZHVUD7694-92-30 04:31:00Not Detected (06/19/17 11:31 PM)[facility]annMOLECULAR BLYTWCXJCK9801-01-91 04:31:00Not Detected (06/19/17 11:31 PM)[facility]annMOLECULAR MPXMEKMECE0826-11-48 04:31:00Not Detected (06/19/17 11:31 PM)[facility]annMOLECULAR URXHKQMPJM8842-80-62 04:31:00Not Detected (06/19/17 11:31 PM)[facility]annMOLECULAR DIAGNOSTIC 2017-06-20 04:31:00Not Detected (06/19/17 11:31 PM)[facility] M[facility]
--- OUTSIDE RECORDS SUMMARY | 2020-05-20 20:31 | XMS REPORT ---
:1960 Author Organization [employer] Care Team Providers Name Role Phone Deepthi Hull Provider Role Unavailable Allergies, Adverse Reactions, Alerts Substance Reaction Event Type N.K.D.A. Info Not Available Non Drug Allergy Problems Problem Type Condition Code Onset Dates Condition Statu s Problem Other chronic pain G89.29 Active Problem Sleep disturbance G47.9 Active Assessment Other chronic pain G89.29 Active Assessment Deep vein thrombosis (DVT) of I82.411 Active femoral vein of right lower extremity, unspecified chronicity Assessment Pre-operative clearance Z01.818 Acti ve Assessment Type 2 diabetes mellitus with other E11.59 Active circulatory complication, without long-term current use of insulin Problem Type 2 diabetes mellitus with other E11.59 Active circulatory complication, without long-term current use of insulin Problem Abnormal PSA R97.20 Active Problem Pre-operative clearance Z01.818 Acti ve Problem Deep vein thrombosis (DVT) of I82.411 Active femoral vein of right lower extremity, unspecified chronicity Problem Body mass index (BMI) of 32.0-32.9 Z68.32 Active in adult Problem Cough R05 Active Problem Hyperglycemia R73.9 Active Medications Medication Code Code Instructions Start End Status Dosage System Date Date Tizanidine HCl ND 33989593601 4 MG by mouth 1 Activ e tablet tablet and 2 in evening Xarelto ND 94459345097 20 MG Orally Sep 27, Active 1 table t Once a day 2018 with food Lyrica ND 51800508934 200 MG Orally Active 1 caps ule three times a day Trazodone HCl ND 44233659499 100 MG Orally Active 1 tablet Once a day at bedtime MetFORMIN HCl ND 34547583006 750 MG Orally April 05, Active 1 tablet ER Once a day 2019 with evening meal Hydrocodone-Ac ND 91607082537 10-325 MG Oral Active not etaminophen defined Results Name Result Date Reference Range Unit Abnormali ty Flag HEMOGLOBIN A1C ----A1C 6.6 20200405 Summary Purpose [employer]ClinicalWorks Submission
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
[2020-05-20] MEDS ORDERED: KETOROLAC 30 MG/ML INJ ONE (22:44)
[2020-05-20 22:56] VITALS: TEMP 98.5
[2020-05-20 22:58] VITALS: BP 124/75; O2SAT 100
== END 2020-05-20 22:51 | disposition home or self-care (01) ==
LOC: ER 20:22
DX: S13.4XXA Sprain of ligaments of cervical spine, initial encounter (principal); V49.9XXA Car occupant (driver) (passenger) injured in unspecified traffic accident, initial encounter
CPT/HCPCS: 72125; 96372; 99284

== ENCOUNTER 2021-01-08 12:57 | Emergency (ER) | payer OTHER ==
--- OUTSIDE RECORDS SUMMARY | 2021-01-08 13:03 | XMS REPORT | Continuity of Care Document ---
:1960 Author Organization [facility] t Address [address] [place] [address] Care Team Providers Name Role Phone PARK Attending Clinician Unavailable MIRIAM Attending Clinician Unavailable Scott Kapoor Attending Clinician Katie Attending Clinician Trice Mercado Attending Clinician Munir Attending Clinician Nicole Gandhi Attending Clinician Pete Bartholomew Attending Clinician Jennifer Lua Attending Clinician ALEJANDRO Admitting Clinician Unavailable Pete Bartholomew Admitting Clinician Problems Condition Condition Condition Status Onset Resolution Last Treating Co mments Source Name Details Category Date Date Treatment Clinician Date G06.2 Diagnosis Active 2016-102017-09-05 Mem oria 10-26 07:56:00 l G06.2 00:00: Moy 00 Active 08/26/2017 [facility] XRAY Diagnosis Active 2017-07-14 Mem oria 07-14 09:59:00 l XRAY 09:59: [place] 00 Active 07/14/2017 [facility] BACK PAIN Diagnosis Active 2017-07-15 Memoria 06-19 22:02:00 l BACK 00:00: [place] PAIN 00 Active 06/19/2017 Hilary Winter [facility] 724.2 Diagnosis Active 2015-07-17 Mem oria 05-24 17:22:00 l 724.2 00:00: Moy 00 Active 05/24/[address] [facility] 724.2 Diagnosis Active 2015-06-19 Mem oria ACUTE LOW 7- 15:38:00 l BACK PAIN 724.2 00:00: Tomer n ACUTE LOW 00 BACK PAIN Active 05/09/2015 [facility] Chronic Problem Resolve 2019-10-29 [facility] oria back pain d 02:08:59 l (disorder) Chronic Her perez back pain (disorder) Resolved Problem 10/29/2019 [facility] Diabetes Problem Resolve 2019-10-29 Ny moria mellitus d 02:08:59 l (disorder) Diabetes He rmann mellitus (disorder) Resolved Problem 10/29/2019 [facility] Hypertensi Problem Resolve 2019-10-29 Memoria ve d 02:08:59 l disorder, Moy systemic Hypertensi arterial ve (disorder) disorder, systemic arterial (disorder) Resolved Problem 10/29/2019 [facility] Type 2 Diagnosis Active 2017-10-29 [facility] oria diabetes 03:45:29 l mellitus Type 2 Tomer n without diabetes complicati mellitus on, without without complicati long-term on, current without use of long-term insulin current use of insulin Active Diagnosis 10/29/2017 2.16.840.1 .259256.4. ..225 68 Staphyloco Diagnosis Active 2017-10-29 [facility] ccus 03:45:29 l aureus Moy bacteremia Staphyloco with ccus sepsis aureus bacteremia with sepsis Active Diagnosis 10/29/2017 2.16.840.1 .187305.4. 11.225 68 Abscess in Diagnosis Active 2017-10-29 Memoria epidural 03:45:29 l space of Abscess Margo nn thoracic in spine epidural space of thoracic spine Active Diagnosis 10/29/2017 2.16.840.1 .644862.4. [id number] 68 Local Diagnosis Active 2017-09-10 Mem oria infection 03:45:50 l of the Local [place] skin and infection subcutaneo of the us tissue, skin and unspecifie subcutaneo d us tissue, unspecifie d Active Diagnosis 09/10/2017 2.16.840.1 .930770.4. [id number] 68 Abrasion Diagnosis Active 2017-09-10 M emoria of right 03:45:50 l front wall Abrasion He rmann of thorax, of right subsequent front wall encounter of thorax, subsequent encounter Active Diagnosis 09/10/2017 2.16.840.1 .587708.4. [id number] 68 Osteomyeli Problem Active 2017-10-29 M emoria tis 03:45:29 l Moy Osteomyeli tis Active Problem 10/29/2017 2.16.840.1 .970458.4. 39111.225 68 Sepsis Problem Active 2017-10-29 Memor ia 03:45:29 l Sepsis Moy Active Problem 10/29/2017 2.16.840.1 .036812.4. 391.225 68 Bacteremia Problem Active 2017-10-29 M emoria 03:45:29 l Moy Bacteremia Active Problem 10/29/2017 2.16.840.1 .472934.4. 391.225 68 HTN Problem Active 2017-10-29 Memor ia (hypertens 03:45:29 l ion) HTN [place] (hypertens ion) Active Problem 10/29/2017 2.16.840.1 .023446.4. 391.225 68 Epidural Problem Active 2017-10-29 Mem oria abscess 03:45:29 l Epidural Tomer n abscess Active Problem 10/29/2017 2.16.840.1 .972536.4. 39111.225 68 Chronic Problem Active 2017-10-29 Kiko madelin back pain 03:45:29 l Chronic [place] back pain Active Problem 10/29/2017 2.16.840.1 .906200.4. 39111.225 68 Simple Problem Active 2019-10-29 Memor ia obesity 02:08:59 l (disorder) Simple Herm jah obesity (disorder) Active Problem 10/29/2019 [facility] DORSALGIA, Diagnosis Active 2017-07-15 Memoria UNSPECIFIE 22:02:00 l D Moy DORSALGIA, UNSPECIFIE D Active [facility] Allergies, Adverse Reactions, Alerts Allergy Allergy Status Severity Reaction(s) Onset Inactive Treating Comm ents Source Name Type Date Date Clinician N.K.D.A. N.K.D.A. Active Info Not 2017-1 Kiko madelin Available 2-14 l 00:00: Moy 00 No Known No Known Active Memori a Medicati Medicati l on on Moy Brown s s Social History Smoking Status Start Date Stop Date Source Social History [facility] Medications Ordered Filled Start Stop Current Ordering Indication Dosage Frequency Signature Comments Components Source Medication Medication Date Date Medication? Clinician (SIG) Name Name MetFORMIN MetFORMIN Yes Deepthi [address] [facility] [address] HCl ER HCl ER 6-17 [place] [facility] Xarelto Xarelto 2018-10 Yes Deepthi [address] 2-09 [place] [facility] 00[facility]: Memoria 00 l [facility] ent Clinics Cefazolin Yes Soto not Kiko madelin in D5W 1-10 Garza defined l 03:45: [place] 29 Duexis 2017-0 Yes Soto TAKE 1 Memor ia 1-10 Garza TABLET BY l 03:45: MOUTH 3 [place] 29 TIMES A DAY FOR 30 DAYS Opana ER 2017-0 Yes Soto (Schedule Memoria 1-10 Garza II Drug) l 03:45: TAKE 1 [place] 29 TABLET BY MOUTH EVERY 12 HOURS FOR PAIN Gabapentin 2017-0 Yes Soto TAKE 1 M emoria 1-10 Garza TABLET BY l 03:45: MOUTH 3 Moy 29 TIMES A DAY FOR 30 DAYS Cyclobenzap 2017-0 Yes Soto TK 1 T PO Memoria rine HCl 1-10 Garza Q 8 H PRN l 03:45: MUSCLE [place] 29 SPASMS Methocarbam 2018-0 Yes Soto TAKE 1 TO Memoria ol 1-10 Garza 2 TABLETS l 03:45: BY MOUTH Moy 29 EVERY 8 HOURS NEEDED FOR MUSCLE SPASM 5 DAYS Oxymorphone 2018-0 Yes Soto (Schedule Memoria HCl 1-10 Garza II Drug) l 03:45: TAKE 1 [place] 29 TABLET BY MOUTH EVERY 6 HOURS NEEDED FOR PAIN Hydrocodone 2018-0 Yes Soto (Schedule Memoria -Acetaminop 1-10 Garza II Drug) l hen 03:45: TAKE 1 Moy 29 TABLET BY MOUTH EVERY 6 HOURS NEEDED FOR PAIN Meloxicam 2018-0 Yes Soto TK 1 T PO Memoria 1-10 Garza BID l 03:45: Metformin 2018-0 Yes Soto TK 1 T PO Memoria HCl 1-10 Garza BID l 03:45: Atorvastati 2018-0 Yes Soto TK 1 T PO Memoria n Calcium 1-10 Garza QD l 03:45: Xarelto 2017-0 Yes Soto TK 1 T PO M emoria 1-10 Garza Q 24 HOURS l 03:45: FOR 13 Moy 29 DAYS Warfarin 2018-0 Yes Soto TK 1 T PO Memoria Sodium 1-10 Garza NIGHT l 03:45: BEFORE SURGERY Lisinopril 0 Yes Soto TK 1 T PO Memoria 1-10 Garza QD l 03:45: Rifampin 0 Yes Soto 1 capsule Memoria 1-10 Garza l 03:45: Doxycycline 0 Yes Soto 1 capsule Memoria Hyclate 1-10 [...] capsule Me moria 0-31 [place] l 00:00: 00 OPANA 2017 No OPANA Memoria ER (C-II) 916 ER l Controlled 02:00: (C-II) Margo nn [...] IVPB, l 00:45: ABXQ8H, 0 Refill(s) OPANA No OPANA Memoria ER (C-II) 07-04 ER l Controlled 16:48: (C-II) Margo nn Med Pt's 00 Controlled Own Med Med Pt's Own Med, 10 mg, Drug form: MISC, Route: PO, Q12H, Priority: NOW, 07/04/17 11:48:00 CDT, Duration: 30 day, Stop date: 08/03/17 9:00:00 CDT MS Contin No Notes: Do Mem oria 15 not crush l 02:00: (Same as:[employer] h SR, MS Contin) Oxycontin No Notes: Do Mem oria 07-02 not crush l 02:00: or chew. (Same as: OxyContin) Naloxone No 0.4 mg, Memori a 06-30 Route: l 19:25: IVP, Q2MIN, Dosing Weight 129, kg, PRN Narcotic Reversal, Start date: 06/30/17 14:25:00 CDT, Duration: 8 doses or times, Stop date: Limited # of times Flumazenil No 0.2 mg, Kiko madelin 06-30 Route: l 19:25: IVP, PRN, Dosing Weight 129, kg, PRN Benzodiaze pine Reversal, Initial dose, Start date: 06/30/17 14:25:00 CDT, Duration: 30 day, Stop date: 07/30/17 14:24:00 CDT Morphine 2017-0 No 4 mg, Memoria 06-30 Route: l 19:25: IVP, Moy 00 Q5Min, Dosing Weight 129, kg, PRN Pain Score 7-10, Start date: 06/30/17 14:25:00 CDT, Duration: 3 doses or times, Stop date: Limited # of times Oxycodone 2017-0 No 10 mg, Memori a 06-30 Route: NG, l 19:25: Drug form: Moy 00 LIQ, Q4H, Dosing Weight 129, kg, PRN Pain Score 7-10, Start date: 06/30/17 14:25:00 CDT, Duration: 30 day, Stop date: 07/30/17 14:24:00 CDT Hydromorpho 2017-0 No 0.5 mg, Mem oria ne 06-30 Route: l 19:25: IVP, Moy 00 Q5Min, Dosing Weight 129, kg, PRN Pain Score 7-10, Start date: 06/30/17 14:25:00 CDT, Duration: 4 doses or times, Stop date: Limited # of times Fentanyl 2016-0 No 50 Memoria 06-30 microgram, l 19:25: Route: Moy 00 IVP, Q5Min, Dosing Weight 129, kg, PRN Pain Score 7-10, Priority: Routine, Start date: 06/30/17 14:25:00 CDT, Duration: 2 doses or times, Stop date: Limited # of times Diphenhydra 2016-0 No 12.5 mg, Me moria mine 06-30 Route: l 19:25: IVP, Drug Moy 00 form: INJ, Q6H, Dosing Weight 129, kg, PRN Itching, Start date: 06/30/17 14:25:00 CDT, Duration: 30 day, Stop date: 07/30/17 14:24:00 CDT Albuterol 2017-0 No 2.49 mg, Kiko madelin 0.83 MG/ML 06-30 Route: l Inhalant 19:25: NEB, Moy Solution 00 Q20Min, Dosing Weight 129, kg, [...] Stop date: Limited # of times esmolol 2017-0 No 10 mg, Memoria 06-30 Route: l 19:25: IVP, Moy 00 Q5Min, Dosing Weight 129, kg, PRN Other -See Comment, Start date: 06/30/17 14:25:00 CDT, Duration: 5 doses or times, Stop date: Limited # of times Hydralazine 2017-0 No 10 mg, Kiko madelin 06-30 Route: l 19:25: IVP, Moy 00 Q20Min, Dosing Weight 129, kg, PRN Elevated BP, Start date: 06/30/17 14:25:00 CDT, Duration: 2 doses or times, Stop date: Limited # of times Labetalol 2017-0 No 10 mg, Memori a 06-30 Route: l 19:25: IVP, [place] 00 Q5Min, Dosing Weight 129, kg, PRN Elevated BP, Start date: 06/30/17 14:25:00 CDT, Duration: 5 doses or times, Stop date: Limited # of times Acetaminoph 2016-0 No 1,000 mg, M emoria en 06-30 Route: l 19:25: IVPB, Drug form: INJ, ONCE, Dosing Weight 129, kg, PRN Pain Score 1-3, Start date: 06/30/17 14:25:00 CDT, Duration: 1 doses or times, Stop date: Limited # of times Ketorolac 2017-0 No 30 mg, Memori a 06-30 Route: [...] INJ (ANES) 06-30 Total l 17:39: Volume: [place] 00 1,000, Start date: 06/30/17 12:39:00 CDT, [...] Notes: Memoria 06-30 (Same l 15:32: as:MORPhin [place] 00 e Sulfate) Lactated 2017-0 No 1,000 mL, Kiko madelin Ringers 06-30 Rate: 100 l 1,000 mL 05:00: ml/hr, Moy 00 Infuse over: 10 hr, Route: IV, Dosing Weight 129 kg, Total Volume: 1,000, Priority: Routine, Start date: 06/30/17 0:00:00 CDT, Duration: 30 day, Stop date: 07/29/17 23:59:00 CDT Clonidine No Notes: Memori a Hydrochlori 06-28 (Same As: l de 0.1 MG 22:08: Catapres) Her perez Oral Tablet Calcium No Notes: Memoria Gluconate 06-28 WASTE: F/P l 22:01: - Sink; E [place] - Municipal Trash Bin K-Dur 20 No Notes: Memoria 06-28 (Same as: l 22:01: K-Dur ) Moy 00 "Do Not Crush" With food and full glass of water gabapentin No Notes: Memor ia 06-28 (Same as: l 10:30: Neurontin) [place] 00 heparin No Notes: Memoria sodium, 06-28 porcine l porcine 05:00: heparin [place] 2500 UNT/ML 00 Injectable Solution gabapentin Yes 800 mg = 1 M emoria 800 MG Oral 06-28 tab, PO, l Tablet 01:45: TID, # 90 Tomer n 00 tab, 3 Refill(s) Acetaminoph Yes 1 tab, PO, Memoria en 325 MG / 06-28 Q6H, PRN l Hydrocodone 01:45: for pain, H ermann Bitartrate 00 # 24 tab, 10 MG Oral 0 Tablet Refill(s) [Saranac 10/325] Docusate No Notes: Memoria Sodium 100 06-27 (Same as: l MG Oral 22:00: Colace) [place] Capsule (Do Not Crush) Hydromorpho No 15 mg, 30 M emoria ne 06-27 mL, Route: l 19:30: IV, Moy Initial Loading Dose: 0.4mg, 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 Dose: 0.2 mg, 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 CLOTH Lockout: 10 minutes, Continuous Basal Rate: 0 mg, 4 Hour Limit (In MG): 6, Continuous , Start date: 06/27/17 14:30:00 CDT, Duration: 30 day, Stop date: 07/27/17 14:29:00 CDT Naloxone No Notes: Memoria 06-27 Same as l 19:12: Narcan Morphine No 30 mg, 30 Kiko madelin 9-08 mL, Route: l 19:00: IV, Initial Loading Dose: 2 mg, 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 CLOTH Dose: 1 mg, 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 CLOTH Lockout: 10 minutes, Continuous Basal Rate: 0 mg, 4 Hour Limit (In MG): 30, Continuous , Start date: 06/27/17 14:00:00 CDT, Duration: 30 day, Stop date: 07/27/17 13:59:00 CDT esmolol No Notes: Memoria 06-27 (Same as: l 18:49: Brevibloc) Labetalol No Notes: Memori a 06-27 (Same as: l 18:49: Normodyne, Trandate) Push over 2 minutes Give bolus over 2-3 minutes. Meperidine No Notes: Memor ia 06-27 (Same [...] Memoria 06-27 Same as l 18:49: Narcan Moy 00 Flumazenil No Notes: Memor ia 06-27 (Same as: l 18:49: Romazicon) Moy 00 Calcium No 1,000 mL, Memor ia Chloride 06-27 Rate: 125 l 0.0014 18:49: ml/hr, [place] MEQ/ML / 00 Infuse Potassium over: 8 Chloride hr, Route: 0.004 IV, Dosing MEQ/ML / Weight 129 Sodium kg, Total Chloride Volume: 0.103 1,000, MEQ/ML / Start Sodium date: Lactate 06/27/17 0.028 13:49:00 MEQ/ML CDT, Injectable Duration: Solution 30 day, Stop date: 07/27/17 13:48:00 CDT Oxycodone No Notes: Memori a 06-27 (Same as: l 18:49: Roxicodone [place] 00 ) Acetaminoph No Notes: Max Memoria en 06-27 acetaminop l 18:49: hen 4000 [place] 00 mg/day (4 gm/day). (Same as: Tylenol Extra Strength) Hydralazine No Notes: Kiko madelin 06-27 (Same as: l 18:49: Apresoline [place] 00 ) Push over 5 minutes Naloxone No Notes: Memoria 06-27 Same as l 18:43: Narcan Moy 00 sodium No 1,000 mL, Memori a chloride 06-27 Rate: 30 l 0.45% 1000 18:43: ml/hr, Margo nn ml INJ 00 Infuse 1,000 mL over: 33.3 hr, Route: IV, Dosing Weight 129 kg, Total Volume: 1,000, Start date: 06/27/17 13:43:00 CDT, Duration: 30 day, Stop date: 07/27/17 13:42:00 CDT Promethazin No Notes: Do Raoul emocristia e 06-27 not give l 18:43: IV push. [place] (Same as: Phenergan) Acetaminoph No Notes: Do M emoria en 325 MG / 06-27 not exceed l Hydrocodone 18:43: 4gm/day of Moy Bitartrate 00 acetaminop 10 MG Oral hen. Tablet (Same as: Saranac 325/10) phenylephri No Route: IV, Memoria ne [...] as: l / 14:38: Duoneb) Ipratropium 00 [place] 0.167 MG/ML Inhalant Solution Calcium No 1,000 [...] 06-27 Drug form: l 14:21: INJ, ONCE, Moy 00 Stop date: 06/27/17 9:21:00 CDT succinylcho 2016-0 No Route: IV, Memoria line (ANES) 06-27 Drug form: l 14:21: INJ, ONCE, Moy 00 Stop date: 06/27/17 9:21:00 CDT propofol 2017-0 No Route: IV, Mem oria (ANES) 06-27 Drug form: l 14:21: INJ, ONCE, [place] 00 Stop date: 06/27/17 9:21:00 CDT rocuronium 2016- No Route: IV, M emoria (ANES) 06-27 Drug form: l 14:21: INJ, ONCE, Stop date: 06/27/17 9:21:00 CDT lidocaine 2017-0 No Route: IV, Me moria (ANES) 06-27 Drug form: l 14:16: INJ, ONCE, Stop date: 06/27/17 9:16:00 CDT midazolam 2016-0 No Route: IV, Me moria (ANES) 06-27 Drug form: l 14:16: SOLN, [place] 00 ONCE, Stop date: 06/27/17 9:16:00 CDT acetaminoph 2016- No Route: IV, Memoria en (ANES) 06-27 Drug form: l 14:16: INJ, ONCE, Stop date: 06/27/17 9:16:00 CDT fentaNYL 2017-0 No Route: IV, Mem oria (ANES) 06-27 Drug form: l 14:16: INJ, ONCE, [place] 00 Stop date: 06/27/17 9:16:00 CDT ceFAZolin 2016- No Route: IV, Me moria (ANES) 06-27 Drug form: l 14:11: INJ, ONCE, Moy 00 Stop date: 06/27/17 9:11:00 CDT vancomycin 2016-0 No Route: IV, M emoria (ANES) 06-27 [...] -epinephrin 06-27 (bupivacai l e 12:10: ne-epi [place] 0.25%-1:200 00 0.25%-1:20 ,000 0,000 30 preservativ ml VL) e-free Not for injectable use in solution continuous infusion. (Same As: Marcaine w/Epi) Docusate No Notes: Memoria Sodium 100 06-26 (Same as: l MG Oral 22:00: Colace) [place] Capsule (Do Not Crush) Lactulose No Notes: Memori a 667 MG/ML 06-26 (Same l Oral 18:48: as:Chronul Moy Solution 00 ac) gabapentin No Notes: Memor ia 06-26 (Same as: l 18:30: Neurontin) Moy 00 Lidocaine No Notes: Memori a 40 MG/ML 06-26 (Same as: l Topical 15:29: Xylocaine) Herm jah Cream 00 metoprolol No Notes: Memor ia tartrate 06-26 (Same as: l 02:00: Lopressor) Moy 00 Dilaudid No 0.8 mg, Memori a 06-24 0.8 mL, l 15:36: Route: IV, [place] 00 Drug form: INJ, Q3H, Dosing Weight [...] day, Stop date: 07/23/17 9:00:00 CDT Opana 2016- No 10 mg, Memoria 06-23 Route: PO, l 22:00: Drug form: Moy 00 TAB, BID, Dosing Weight 129, kg, Start date: 06/23/17 17:00:00 CDT, Duration: 30 day, Stop date: 07/23/17 9:00:00 CDT *ATTN RN No *ATTN RN Memor ia please 06-23 please l bring pt 21:00: bring pt Margo nn home med 00 home med Opana to Opana to pharmacy pharmacy , *ATTN RN, Drug form: MISC, Route: MISC, QSHIFT, 06/23/17 16:00:00 CDT, Duration: 30 day, Stop date: 07/23/17 8:00:00 CDT Motrin 2016-0 No Notes: Memoria 06-23 (Same as: l 20:13: Motrin) "Do Not Crush" Take with food. famotidine No Notes: Memor ia 06-23 (Same as: l 20:12: Pepcid) Famotidine 2016-0 No 1 tab, Memor ia / Ibuprofen 06-23 Route: PO, l 19:30: Drug Form: Moy 00 TAB, Dosing Weight 129, kg, TID, PRN Pain Score 4-6, Start date: 06/23/17 14:30:00 CDT, Duration: 30 day, Stop date: 07/23/17 14:29:00 CDT sodium 2016-0 No 1,000 mL, Memori a chloride 06-23 Rate: 60 l 0.9% 1000 19:29: ml/hr, Tomer n ml INJ 00 Infuse 1,000 mL over: 16.7 hr, Route: IV, Dosing Weight 129 kg, Total Volume: 1,000, Start date: 06/23/17 14:29:00 CDT, Duration: 30 day, Stop date: 07/23/17 14:28:00 CDT Famotidine 2016- Yes 1 tab, PO, M emoria 26.6 MG / 06-23 TID, PRN l Ibuprofen 17:02: Pain, # 90 He rmann 800 MG Oral 00 tab, 0 Tablet Refill(s) [Duexis] Cefazolin No Notes: Memori a 06-23 Same as: l 00:00: Ancef Oxymorphone Yes 10 mg = 1 M emoria Hydrochlori 06-22 tab, PO, l de 10 MG 23:11: BID, 0 Moy Oral Tablet 00 Refill(s) [Opana] gabapentin No Notes: Memor ia 06-21 (Same as: l 21:00: Neurontin) vancomycin No 2001 mg: Me moria 06-21 infuse l 05:00: over 2.5 [place] 00 hours Vancomycin No 1.25 gm, Mem oria 06-21 Route: IV, l 05:00: Q8H, Moy 00 Dosing Weight 129, kg, Start date: 06/21/17 0:00:00 CDT, Duration: 14 day, Stop date: 07/04/17 16:00:00 CDT, Pharmacy to dose, ABX Indication : Bone/Joint Infection vancomycin No 2001 mg: Me moria 06-21 infuse l 02:00: over 2.5 Moy 00 hours heparin No Notes: Memoria 06-21 porcine l 02:00: heparin Robaxin No Notes: Memoria 06-21 (Same l 02:00: as:Robaxin ) cefepime No Notes: Memoria 06-21 (Same as: l 01:00: Maxipime) MEDICATION WASTE Product Size: 2000 mg Product Wasted: ___ mg Metformin No Notes: Memori a hydrochlori 06-20 (Same as: l de 1000 MG 22:00: Glucophage H ermann Oral Tablet ) Take with meal gabapentin No Notes: Memor ia 06-20 (Same as: l 21:00: Neurontin) Zosyn No Notes: Memoria 06-20 (Same as: l 19:00: Zosyn) Dosing based on Piperacill in component MEDICATION WASTE Product Size: 3375 mg Product Wasted: ___ mg Vancomycin No 1 eaRadha a 06-20 Route: l 18:00: MISC, [place] 00 ONCALL, Dosing Weight 129, kg, Start date: 06/20/17 13:00:00 CDT, day, Stop date: 06/20/17 13:00:00 CDT, Pharmacy to dose, ABX 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 (Same as: Humalog ) "Single Patient Use Only " WASTE: F/P - Black; E - Municipal Trash Bin Stable for 28 days at room temperatur e. Expires in days from ____Date Glucagon No 1 mg, Memoria 06-20 Route: IM, l 17:07: Drug form: PDR/INJ, PRN, Dosing Weight 129, kg, [...] not exceed l Hydrocodone 17:03: 4gm/day of Bitartrate 00 acetaminop 10 MG Oral hen. Tablet (Same as: [Saranac [place] 10/325] 325/10) Dilaudid No 1 mg, 1 Memori a 06-20 mL, Route: l 17:02: IV, Drug form: INJ, Q3H, Dosing Weight 129, kg, PRN Pain Score 6-10, Start date: 06/20/17 12:02:00 CDT, Duration: 30 day, Stop date: 07/20/17 12:01:00 CDT Tramadol No Notes: Not Mem oria 06-20 to exceed l 17:00: 400mg/day. (Same As: Ultram) Insulin No Notes: Memoria regular 06-20 (Same as: l 16:14: Humulin R and NovoLIN R) WASTE: F/P - Black; E - Municipal Trash Bin (Do not shake) Calcium No Notes: Memoria Gluconate 06-20 WASTE: F/P l 16:14: - Sink; E - Municipal Trash Bin Sodium No Notes: Memoria polystyrene 06-20 (sodium l sulfonate 16:14: polystyren He e sulfonate 15 gm/60 ml KEDAR) Shake [...] 0.9% 06-20 (Same as: l 07:45: BD Posiflush) sodium No 1,000 mL, Memori a chloride 06-20 Rate: 125 l 0.9% 1000 07:45: ml/hr, Tomer n ml INJ 00 Infuse 1,000 mL over: 8 hr, Route: IV, Dosing Weight 129.545 kg, Total Volume: 1,000, Start date: 06/20/17 2:45:00 CDT, Duration: 30 day, Stop date: 07/20/17 2:44:00 CDT Ondansetron No Notes: Kiko madelin 06-20 (Same as: l 07:45: Zofran) MEDICATION WASTE Product Size: 4 mg Product Wasted: ___ mg Morphine No Notes: Memoria 06-20 (Same l 07:45: as:MORPhin e Sulfate) Acetaminoph No Notes: Do M emoria en 06-20 not exceed l 07:45: 4 gm/day. (Same as: Tylenol) Morphine No Notes: Memoria 06-20 (Same as: l 03:50: MORPhine Sulfate) Valium No Notes: Memoria 06-20 (Same [...] Memoria 06-20 (Same as: l 03:48: Benadryl) [place] 00 Hydrocodone Hydrocodone Yes Deepthi not [facility] -Acetaminop -Acetaminop [place] defined [facility] - hen [facility] Clinics Trazodone Trazodone Yes Deepthi [address] [facility] HCl HCl [place] at bedtime [facility] Tizanidine Tizanidine Yes Deepthi tablet [facility] HCl HCl [place] [facility] Lyrica Lyrica Yes Deepthi 1 capsule [facility] [place] [facility] Vital Signs Vital Name Observation Time Observation Value Comments Source Weight 2017-10-02 20:30:00 [facility] Moy Height 2017-10-02 20:30:00 [facility] Moy Temperature Oral (F) 2017-10-02 20:30:00 97.6 F [facility] Moy Heart Rate 2017-10-02 20:30:00 [facility] [place] Diastolic (mm Hg) 2017-10-02 20:30:00 Mem orial [place] Systolic (mm Hg) 2017-10-02 20:30:00 Kiko rial Moy Weight 2017-09-18 19:25:00 [facility] [place] BMI Calculated 2017-09-18 19:25:00 Memori al [place] Height 2017-09-18 19:25:00 200.66 cm [facility] [place] Weight 2017-09-09 20:45:00 [facility] [place] Height 2017-09-09 20:45:00 [facility] Moy Temperature Oral (F) 2017-09-09 20:45:00 98.2 F [facility] [place] Heart Rate 2017-09-09 20:45:00 [facility] [place] Diastolic (mm Hg) 2017-09-09 20:45:00 Mem orial [place] Systolic (mm Hg) 2017-09-09 20:45:00 Kiko rial [place] Weight 2017-08-19 19:00:00 [facility] [place] Height 2017-08-19 19:00:00 [facility] [place] Temperature Oral (F) 2017-08-19 19:00:00 97.9 F [facility] [place] Heart Rate 2017-08-19 19:00:00 [facility] [place] Diastolic (mm Hg) 2017-08-19 19:00:00 Mem orial [place] Systolic (mm Hg) 2017-08-19 19:00:00 Kiko rial [place] Weight 2017-08-12 18:30:00 [facility] [place] Height 2017-08-12 18:30:00 [facility] Temperature Oral (F) 2017-08-12 18:30:00 98.1 F [facility] Heart Rate 2017-08-12 18:30:00 [facility] Diastolic (mm Hg) 2017-08-12 18:30:00 [facility] Systolic (mm Hg) 2017-08-12 18:30:00 [facility] Weight 2017-08-05 19:30:00 [facility] Height 2017-08-05 19:30:00 [facility] Temperature Oral (F) 2017-08-05 19:30:00 978 F [facility] Heart Rate 2017-08-05 19:30:00 [facility] Diastolic (mm Hg) 2017-08-05 19:30:00 [facility] Systolic (mm Hg) 2017-08-05 19:30:00 [facility] Weight 2017-07-22 18:15:00 [facility] Height 2017-07-22 18:15:00 [facility] Temperature Oral (F) 2017-07-22 18:15:00 98.3 F [facility] Heart Rate 2017-07-22 18:15:00 [facility] Diastolic (mm Hg) 2017-07-22 18:15:00 [facility] Systolic (mm Hg) 2017-07-22 18:15:00 [facility] Respitory Rate 2017-07-05 00:47:00 [facility] Systolic (mm Hg) 2017-07-04 21:00:00 [facility] Diastolic (mm Hg) 2017-07-04 21:00:00 [facility] Respitory Rate 2017-07-04 21:00:00 [facility] Temperature Oral (F) 2017-07-04 21:00:00 97.6 F [facility] Heart Rate 2017-07-04 21:00:00 [facility] Systolic (mm Hg) 2017-07-04 17:00:00 [facility] Diastolic (mm Hg) 2017-07-04 17:00:00 [facility] Temperature Oral (F) 2017-07-04 17:00:00 97.9 F [facility] Heart Rate 2017-07-04 17:00:00 [facility] Systolic (mm Hg) 2017-07-04 13:10:00 [facility] Diastolic (mm Hg) 2017-07-04 13:10:00 [facility] Heart Rate 2017-07-04 13:10:00 [facility] Temperature Oral (F) 2017-07-04 13:10:00 98.5 F [facility] Respitory Rate 2017-07-04 12:43:00 [facility] Weight 2017-06-20 08:10:00 [facility] BMI Calculated 2017-06-20 08:10:00 [facility] Height 2017-06-20 08:10:00 200.66 cm [facility] Heart Rate 2017-06-20 04:48:00 [facility] Systolic (mm Hg) 2017-06-20 04:48:00 [facility] Diastolic (mm Hg) 2017-06-20 04:48:00 [facility] Respitory Rate 2017-06-20 04:48:00 [facility] Weight 2017-06-19 21:51:00 [facility] BMI Calculated 2017-06-19 21:51:00 [facility] Height 2017-06-19 21:51:00 200.66 cm [facility] Temperature Oral (F) 2017-06-19 21:51:00 98.2 F [facility] Respitory Rate 2017-06-19 21:51:00 [facility] Heart Rate 2017-06-19 21:51:00 [facility] Systolic (mm Hg) 2017-06-19 21:51:00 [facility] [place] Diastolic (mm Hg) 2017-06-19 21:51:00 [facility] [place] Procedures Procedure Date / Time Performed Performing Clinician Sourc e Arthroscopy<sup>1</sup> [facility] Laminectomy with spinal [facility] fusion Encounters Start End Encounter Admission Attending Care Care Encounter Source Date/Time Date/Time Type Type Clinicians Facility Department ID 2020-11-01 2020-11-01 Out[facility] [id number] 2020-09-18 2020-09-18 [facility] [id number] [facility] 2020-07-18 2020-07-18 [facility] [id number] [facility] 2020-06-14 2020-06-14 Outpatient [facility] [id number] [place] 00:00[facility] 00:00:[address] 2020-06-09 2020-06-09 Outpatient [facility] [id number] [place] 00:00:00 00:00:[address] 2020-06-09 2020-06-09 Outpatient [facility] [id number] [place] 00:00:00 00:00:[address] 2020-05-29 2020-05-29 [facility] [id number] [place] 00:00:00 00:00:[address] 2020-05-22 2020-05-25 Inpatient [facility] [id number] [place] 00:00:00 00:00:[address] 2020-05-18 2020-05-18 Outpatient [facility] [id number] [place] 00:00:00 00:00:[address] 2020-05-09 2020-05-09 Outpatient [facility] [id number] [place] 00:00:00 00:00:[address] 2020-04-28 2020-04-28 Outpatient [facility] [id number] [place] 00:00:00 00:00:[address] 2020-04-28 2020-04-28 Outpatient [facility] [id number] [place] 00:00:00 00:00:[address] 2020-04-14 2020-04-14 Outpatient [facility] [id number] [place] 00:00:00 00:00:00 CHIL[facility] [address] 2020-04-11 2020-04-11 Outpatient [facility] [id number] [place] 00:00:00 00:00:[address] 2020-04-05 2020-04-05 [facility] [id number] [facility] 16:00:00 16:00:00 [facility] 2020-03-31 2020-03-31 Outpatient [facility] [id number] [place] 00:00:00 00:00:[address] 2020-03-17 2020-03-17 Outpatient [facility] [id number] [place] 00:00:00 00:00:[address] 2020-03-17 2020-03-17 Outpatient [facility] [id number] [place] 00:00:00 00:00:[address] 2019-10-26 2019-10-26 Outpatient MARTHA KapoorSCHER MHMISCHER [id number] 08:15:00 23:59:59 Torres Chavez 2019-10-26 2019-10-26 Outpatient MARTHA KapoorSCHER MHMISCHER [id number] 08:15:00 08:15:00 Torres Chavez 2019-10-04 2019-10-04 [facility] [id number] [facility] 11:00:00 11:00:00 [facility] 2019-09-27 2019-09-27 [facility] [id number] [facility] 11:00:00 11:00:00 [facility] 2018-10-21 2018-10-21 [facility] [id number] [facility] 15:45:00 15:45:00 [facility] 2018-09-17 2018-09-17 [facility] [id number] 14:35:00 14:35:00 t [facility] Clinics 2018-06-04 2018-06-04 Outpatient Katie MARTHASCHER MHMISCHER [id number] 09:00:00 09:00:00 Pat 2017-10-02 2017-10-02 Outpatient REPLACED BY [facility] [id number] [facility]inic 14:30:00 14:30:00 [facility]URNIS [facility] [employer] 2017-09-18 2017-09-18 Outpatient Jess KRISTAMISCHER MHMISCHER [id number] 09:45:00 23:59:59 Akbar 02 Trice 2017-09-09 2017-09-09 Outpatient REPLACED BY [facility] [id number] [facility]Clinic 14:45:00 14:45:00 [facility] [employer] 2017-09-05 2017-09-05 Outpatient CYNTHIA Amaral [facility] [id number] 07:48:00 23:59:00 Harita 2017-08-19 2017-08-19 Outpatient REPLACED BY [facility] [id number] eClinic 14:00:00 14:00:00 [facility] [employer] 2017-08-12 2017-08-12 Outpatient REPLACED BY [facility] [id number] eClinic 13:30:00 13:30:00 NOCTURNIS [facility] [employer] 2017-08-05 2017-08-05 Outpatient REPLACED BY [facility] [id number] eClinic 14:30:00 14:30:00 [facility]URNIS [facility] [employer] 2017-07-22 2017-07-22 Outpatient REPLACED BY [facility] [id number] eClinic 13:15:00 13:15:00 NOCTURNIS [facility] [employer] 2017-07-14 2017-07-14 Outpatient CYNTHIA Gandhi [facility] [id number] 09:58:00 23:59:00 Colby Gonzalez 2017-06-20 2017-07-04 [facility] [id number] 15:23:00 21:15:00 Pete Cesar 2017-06-19 2017-06-20 [facility] [id number] 16:40:00 00:38:00 Poppy 02 Jennifer Results Test Description Test Time Test Comments Results Result Comments Source CHEM PANEL 2017-07-01 135 [facility] 15:27:00 CHEM PANEL 2017-07-01 13.2 [facility] 15:27:00 HEMATOLOGY 2017-07-01 32.6 [facility] 15:27:00 HEMATOLOGY 2017-07-01 15:27:00 Test Item Value Reference Range Interpretation Comme nts MCH (test code = MCH) 26.3 pg 27.0-31.0 [facility] LtgncgsIWAAMTPPFV5809-90-00 15:27:0080.5[facility] 2017-07-01 15:27:0031.2[facility] NgewpbhUQBWXJHGOC5802-56-41 15:27:0010.2[facility] RvvwyhoZDASVMTZLX1815-41-01 15:27:003.87[facility] QhvjtisSJPPNKFDYL0903-23-52 15:27:007.5[facility] LlmkbwzAWHPBAYLQG8386-46-75 15:27:89667Gugvahas Moy UQECZOKNLE9019-00-82 15:27:0014.7[facility] ZkmspghEFLZIWLKWE6726-22-62 15:27:00 4.9[facility] FujfnnnNOTEESCUQE5389-62-43 15:27:000.2[facility] HermannHEMATOLOGY 2017-07-01 15:27:000.2[facility] NdjvynlWYUWBDHDPD0926-83-97 15:27:000.7[facility] SzmxlhrFFFXHHJJDS8215-07-38 15:27:003.8[facility] XxamyweGEDKHXDWMM4405-50-88 15:27:004.9[facility] IrdlaawQEBQCVRWBC5349-38-44 15:27:001.4[facility] EIMMTGHXKK4408-01-57 15:27:003.0[facility] HyuepxkRAHMBUEIBE7109-69-48 15:27:00 29.4[facility] NxpvabuVKHZJEAQPX7676-68-25 15:27:0061.2[facility] HermannCHEM PANEL 2017-07-01 15:27:0088[facility] HermannCHEM VOYVO8186-29-93 15:27:004.2[facility] HermannCHEM YIUDN4479-91-56 15:27:0096[facility] HermannCHEM QDVWY1365-15-40 15:27:0030[facility] HermannCHEM VYFTY8344-06-23 15:27:008.8[facility] HermannCHEM WYAML7009-40-66 15:27:58979Puiduxcr HermannCHEM YIRMZ9175-62-07 15:27:0012 [facility]annCHEM ZUZJU0710-59-77 15:27:000.95[facility]annHEMATOLOGY 2017-06-30 14:00:0014.5[facility] OsvpdofKPIQCCCEZZ1279-21-55 14:00:007.2[facility] RmvqsjvCFTZGGMDWY3173-66-01 14:00:23737Fvjdnqbl QpnmcxaFZOFSMFMDF4973-72-37 14:00:0029.3[facility] RsfjjgqWZYMZBFRKB5251-29-52 14:00:003.59[facility] YCSWSZNCAX2151-16-15 14:00:009.6[facility] LafgyfbRWWPCIDZMZ0655-59-66 14:00:005.5 [facility] RaoysooKTFZZCDQUL2010-58-10 14:00:0032.7[facility]annHEMATOLOGY 2017-06-30 14:00:0081.5[facility] JzwwqdcZNZFNBSMKQ6589-90-22 14:00:00 Test Item Value Reference Range Interpretation Comments MCH (test code = MCH) 26.7 pg 27.0-31.0 [facility] KfvaaklPMJITFNRZR9241-27-40 14:00:001.7[facility]annHEMATOLOGY 2017-06-30 14:00:000.3[facility] SobprrcOAKCTIWZBK0027-38-62 14:00:000.2[facility] RnylfycTFWZUSFARI7002-97-32 14:00:000.8[facility] HpkbqimZTGRDXQTWN7411-69-57 14:00:003.2[facility] UxcfiheYWEIVIDVJJ2049-30-73 14:00:005.9[facility] VEUWCVUGIM8017-71-81 14:00:003.0[facility] TvsacuzRBAPEGVWIE2739-94-53 14:00:00 31.6[facility] OnoduimBCTPWHEPQQ0484-68-64 14:00:0058.7[facility] HermannCHEM PANEL 2017-06-28 10:55:54430Zgssodir HermannCHEM OBZLS6194-56-96 10:55:0010.3[facility] HermannCHEM NGBIS1759-32-02 10:55:006.3[facility] HermannCHEM QPQFA1208-14-75 10:55:0099[facility] HermannCHEM NPLNS4905-59-00 10:55:000.54[facility] HermannCHEM KOWJI1704-32-19 10:55:007[facility] HermannCHEM PUONR4226-59-40 10:55:90188 [facility]annCHEM NTTEK0931-02-67 10:55:003.3[facility] HermannCHEM PANEL 2017-06-28 10:55:0023[facility] HermannCHEM WVZGP7640-43-34 10:55:58400Hegngben CodqitvHUZDDDIAQB8773-89-66 10:55:007.3[facility] JyswtkgBIHFCRQJTY6229-64-72 10:55:003.18[facility] JgdnufrXWPXIFYJWE8706-76-02 10:55:36466Knjiedgw Moy WVEAYAOCAN2502-26-20 10:55:0014.7[facility] XnbjutyQKYRDBIHTF1786-66-70 10:55:00 7.5[facility] FmyitndXRYDPPDBPN3037-60-25 10:55:0026.0[facility] HermannHEMATOLOGY 2017-06-28 10:55:008.5[facility] UlwadjkBQLBOWMOHU7649-87-44 10:55:0081.9[facility] RgclifxGOIIIXFKIX6708-14-47 10:55:00 Test Item Value Reference Range Interpretation Comments MCH (test code = MCH) 26.8 pg 27.0-31.0 [facility] TgafljjWIOVTVXFOV4684-48-02 10:55:0032.8[facility] HermannHEMATOLOGY 2017-06-28 10:55:000.5[facility] ZpenqwdWHKZUIBBQT0927-87-18 10:55:000.3[facility] GnvxzsqDSXPHKYFCU3955-41-21 10:55:001.0[facility] GufsdjmHMGZWRKBDF8657-16-03 10:55:005.9[facility] CzxaaoyJMCHWBGSXA3233-42-61 10:55:000.1[facility] VICDPZVTOJ5786-03-57 10:55:001.3[facility] TsqpplnOZDPPEAUMD6274-52-94 10:55:00 80.5[facility] IftuecgWEDGLIKVAN4820-80-86 10:55:003.9[facility] HermannHEMATOLOGY 2017-06-28 10:55:0013.8[facility]annBLOOD BANK PKDPKOR5789-33-50 14:20:00 Negative (06/27/17 9:20 AM)[facility]annCHEM KHZKY7274-56-76 23:15:002.9 [facility]annCHEM EXOVP8082-15-33 23:15:002.5[facility] HermannCHEM PANEL 2017-06-26 23:15:0095[facility] HermannCHEM SEGDR4636-58-73 23:15:0028[facility] HermannCHEM WOCDS2826-70-41 23:15:008.5[facility] HermannCHEM QMSFQ7754-66-38 23:15:0043[facility] HermannCHEM GZZES8042-34-28 23:15:0026[facility] HermannCHEM HSQYB2579-80-12 23:15:002.1[facility] HermannCHEM EIDBL7967-77-39 23:15:007.2 [facility]annCHEM GIWRS6737-78-01 23:15:000.2[facility] HermannCHEM PANEL 2017-06-26 23:15:09528Bsadiqcs HermannCHEM RMWXC1023-73-28 23:15:001.00[facility] HermannCHEM QMBMY5032-43-52 23:15:41068Qcjiszlx HermannCHEM MMYVC5467-69-08 23:15:01205Qxrycdul HermannCHEM RSAEB5352-67-93 23:15:004.1[facility] HermannCHEM TEITK8193-65-10 23:15:009[facility] HermannCHEM LIZPU8782-52-39 23:15:86677 [facility]annCHEM ABNXN3961-05-10 23:15:0011.1[facility] HermannCHEM PANEL 2017-06-26 23:15:009[facility] HermannCHEM HIZXP5765-11-65 23:15:000.4[facility] HermannCHEM EOIDP7268-37-26 23:15:005.1[facility] CzyejlxYFPHUWQWRI8862-61-87 23:15:001.12[facility] KirdzvvXLKJREIYVJ5336-54-40 23:15:00 Test Item Value Reference Range Interpretation Comments PT (test code = PT) 14.6 s 12.0-14.7 [facility] PmiflbcCGRTLPBPJI7562-55-96 23:15:000.1[facility] HermannHEMATOLOGY 2017-06-24 10:39:000.1[facility] HermannCHEM SAFBG2207-60-87 16:20:002.7[facility] PfontfgXKZVQLUGSC1035-05-23 16:20:000.1[facility] HermannCHEM XRPIA7015-64-92 12:48:001.56[facility] OjgauwhELDDRNEFKH7371-47-00 04:06:0016.3[facility] CHEM SJQZV2913-09-58 09:49:002.6[facility] JuhjwspNFWUIHRSMA3389-03-12 09:49:00 Clumped (06/21/17 4:49 AM)[facility] XtlaoguPCPYUMFYSC3111-43-47 09:49:0097[facility] HermannCARDIAC XACPZTS5565-95-89 21:14:39617Ifesoxvx HermannCARDIAC ENZYMES 2017-06-20 21:14:000.8[facility] HermannCARDIAC EOTJTTB8555-48-31 21:14:00<0.02 [facility]annCARDIAC PGGCUHV0899-46-37 21:14:000.5[facility] HermannIMMUNOLOGY 2017-06-20 21:14:91333.0[facility] HermannCARDIAC VRXCSSY5523-75-79 16:51:000.9 [facility]annCARDIAC HOTWVET7078-62-42 16:51:00<0.02[facility] CARDIAC YNVLZLC6589-76-46 16:51:0095[facility] HermannCARDIAC TRCJOHJ8679-54-95 13:33:000.7[facility] HermannCARDIAC BHJWQEW8405-80-93 13:33:000.7[facility] CARDIAC TULCUAT5617-33-04 13:33:00<0.02[facility] HermannCARDIAC ENZYMES 2017-06-20 13:33:87995Rqjnvqby HermannCHEM ZZCEG1701-08-41 13:33:001.3[facility] HermannCHEM SXFPS1231-08-71 13:33:23361Dojdjorz HermannCHEM WOFPO7503-48-27 13:33:000.7[facility] HermannCHEM EOGKE4982-03-25 13:33:0055[facility] HermannCHEM OFUVU6493-80-30 13:33:0040[facility] HermannCHEM AMYJX7694-06-13 13:33:004.9 [facility]annCHEM AOVYR8290-68-12 13:33:003.2[facility] HermannCHEM PANEL 2017-06-20 13:33:008.1[facility] HermannCHEM EBPNL9855-54-68 13:33:0017[facility]annURINE AND NOGSI3295-27-17 04:49:00Negative (06/19/17 11:49 PM)[facility] AND RJDTL3994-42-60 04:49:00 Test Item Value Reference Range Interpretation Comments UA pH (test code = UA pH) 6.0 1 5.0-8.0 [facility] FQMIX9906-26-18 04:49:00Clear (06/19/17 11:49 PM) [facility] WJCMU3851-12-57 04:49:00<=1.005 *NA*(06/19/17 11:49 PM)[facility] TBFXK2109-95-69 04:49:00Yellow *NA*(06/19/17 11:49 PM)[facility] COIQO6608-97-69 04:49:00None Seen (06/19/17 11:49 PM)[facility] QWXGA0296-14-76 04:49:00None Seen (06/19/17 11:49 PM)[facility] UDRLV0808-96-98 04:49:00Negative (06/19/17 11:49 PM) [facility] GSXZQ5012-20-20 04:49:00None Seen (06/19/17 11:49 PM) [facility] SDKCO4508-84-12 04:49:00Negative (06/19/17 11:49 PM) [facility] GCILQ2826-89-13 04:49:00Negative (06/19/17 11:49 PM) [facility] CGULR0957-18-09 04:49:000.2[facility] BVRNY6483-50-87 04:49:00Negative *NA*(06/19/17 11:49 PM)[facility] KFBQB2263-57-60 04:49:00Negative *NA*(06/19/17 11:49 PM)[facility] NPJVE0121-13-50 04:49:00Negative (06/19/17 11:49 PM)[facility]annCHEM PANEL 2017-06-20 04:31:0017[facility] HermannCHEM YGRYL5361-27-92 04:31:005.3[facility] HermannCHEM TRSTF7708-11-40 04:31:000.6[facility] HermannCHEM VTJNS2300-11-52 04:31:009.5[facility] HermannCHEM DAHIE9096-25-36 04:31:0012[facility] HermannCHEM JMTEM1668-47-25 04:31:0086[facility] HermannCHEM LNGXZ9590-08-89 04:31:000.4 [facility]annCHEM TJMXT3985-63-26 04:31:008.5[facility] HermannCHEM PANEL 2017-06-20 04:31:0094[facility] HermannCHEM EXOMS3651-31-89 04:31:0030[facility] HermannCHEM HBOIP6913-51-04 04:31:008.8[facility] HermannCHEM VSYDE1635-02-95 04:31:0048[facility] HermannCHEM LCSFA9445-53-35 04:31:003.2[facility] HermannCHEM CYFEE9808-76-02 04:31:57850Awvqwcrn HermannCHEM RYNNQ9169-73-25 04:31:004.5 [facility]annCHEM YTPZZ5193-75-96 04:31:0019[facility] HermannCHEM PANEL 2017-06-20 04:31:00754Wkcddnnh HermannCHEM VGBPR6580-05-03 04:31:001.09[facility] HermannCHEM BAYHC8978-45-36 04:31:13692Rfozwbbh CosrurnOHPHKMBKYQ9435-10-00 04:31:00Normal (06/19/17 11:31 PM)[facility] IdgtvmeCGMLVWLTUZ9728-98-63 04:31:00 Normal (06/19/17 11:31 PM)[facility] YhvhsdqXRIINGFSRH9946-77-57 04:31:0074.0 [facility] HrydwjbPTZVQPWAOX1791-40-17 04:31:0012.6[facility] HermannHEMATOLOGY 2017-06-20 04:31:005.0[facility] DvimywyQHXMYVADFJ1523-73-57 04:31:0013.0[facility] MghzdraFHYOHJWTSC1480-59-52 04:31:007.0[facility] CyvvxngRGDIPFULYC2794-82-07 04:31:001.0[facility] XwidkpiJTDVVTEHWK4648-31-63 04:31:000.8[facility] NXKVTRJFFT4360-52-78 04:31:002.0[facility] ZeebwkeNPMOKVMDCY9967-61-49 04:31:00 37.7[facility] CplbbomUMHFVPFASY6734-17-04 04:31:0080.7[facility] HermannHEMATOLOGY 2017-06-20 04:31:0032.5[facility] WsjemcwFPDUHTKAND7323-05-35 04:31:00 Test Item Value Reference Range Interpretation Comments MCH (test code = MCH) 26.2 pg 27.0-31.0 [facility] JadkbelVIGYEHQHJP3094-25-82 04:31:0014.3[facility] HermannHEMATOLOGY 2017-06-20 04:31:007.9[facility] UtdcfqmLWRCORGWGF9433-98-36 04:31:37811Kddongpm PxubaxiVCBQXTHNMV9100-61-88 04:31:0012.2[facility] SjziehtTXCTGEBSZZ2811-60-62 04:31:004.67[facility] MhqayxyPSQFJTATOO7369-63-61 04:31:0015.5[facility] MOLECULAR XDBSIFFJPR4979-34-29 04:31:00Not Detected (06/19/17 11:31 PM)[facility]annMOLECULAR KSXUTQEIIW5265-57-87 04:31:00Not Detected (06/19/17 11:31 PM) [facility]annMOLECULAR RMUSLPICXJ1850-45-32 04:31:00Not Detected (06/19/17 11:31 PM)[facility] HermannMOLECULAR ACWTYQFLYO1754-10-93 04:31:00Not Detected (06/19/17 11:31 PM)[facility] HermannMOLECULAR ADPCWZXEXZ2052-29-48 04:31:00Not Detected (06/19/17 11:31 PM)[facility] HermannMOLECULAR XOSVQTWUIG8244-55-78 04:31:00Not Detected (06/19/17 11:31 PM)[facility]annMOLECULAR DIAGNOSTIC 2017-06-20 04:31:00Detected *ABN*(06/19/17 11:31 PM)[facility]annMOLECULAR MVGIENJZAO2000-04-40 04:31:00Not Detected (06/19/17 11:31 PM)[facility] MOLECULAR GTFIBCDVEV9782-34-73 04:31:00Not Detected (06/19/17 11:31 PM)[facility]annMOLECULAR RTENYVVMAG4214-27-24 04:31:00Detected *ABN*(06/19/17 11:31 PM) [facility]annMOLECULAR OZGGHLJNMQ1895-92-02 04:31:00Not Detected (06/19/17 11:31 PM)[facility]annMOLECULAR CIFHCTIPCI6485-79-30 04:31:00Not Detected (06/19/17 11:31 PM)[facility]annMOLECULAR HULNVLBCUJ7039-51-06 04:31:00Not Detected (06/19/17 11:31 PM)[facility]annMOLECULAR AKIACUJPZO7160-40-96 04:31:00Not Detected (06/19/17 11:31 PM)[facility] DIAGNOSTIC 2017-06-20 04:31:00Not Detected (06/19/17 11:31 PM)[facility]
[2021-01-08 15:41] LABS: SARS-COV-2 RT PCR POSITIVE (NEGATIVE)
--- NOTE | 2021-01-08 15:42 | ER ---
Nurse's Notes [facility] Name: Rica Ribeiro Jr Age: 60 yrs Sex: Male : 1960 Arrival Date: 01/08/2021 Time: 12:59 Bed 26 Private MD: Diagnosis: Coronavirus infection, unspecified Presentation: 01/08 13:09 Chief complaint: Patient states: Family members are covid positive. Chills, fever ll1 started yesterday. Coronavirus screen: Client denies travel out of the [place] in the last 14 days. chills, fatigue, headache, shaking with chills, Client presents with at least one sign or symptom that may indicate coronavirus-19. Standard/surgical mask placed on the client. Ebola Screen: Patient denies travel to an Ebola-affected area in the 21 days before illness onset. Initial Sepsis Screen: Does the patient meet any 2 criteria? No. Patient's initial sepsis screen is negative. Does the patient have a suspected source of infection? Yes: Productive cough/pneumonia. Risk Assessment: Do you want to hurt yourself or someone else? Patient reports no desire to harm self or others. Onset of symptoms was January 07, 2021. 13:09 Method Of Arrival: Ambulatory ll1 13:09 Acuity: ALTAF 3 ll1 Historical: - Allergies: 13:11 NKA; ll1 - PMHx: 13:11 blood clots DVT; Diabetes - NIDDM; Hyperlipidemia; neuropathy; staph infection; ll1 - PSHx: 13:11 Knee surgery; back surgery; thoracic surgery; ll1 - Immunization history:: Flu vaccine is not up to date. - Social history:: Smoking status: Patient denies any tobacco usage or history of. Screenin:33 Abuse screen: Denies threats or abuse. Nutritional screening: No deficits noted. vg1 Tuberculosis screening: No symptoms or risk factors identified. Fall Risk No fall in past 12 months (0 pts). No secondary diagnosis (0 pts). No IV (0 pts). Ambulatory Aid- None/Bed Rest/Nurse Assist (0 pts). Gait- Normal/Bed Rest/Wheelchair (0 pts) Mental Status- Oriented to own ability (0 pts). Total Kitchen Fall Scale indicates No Risk (0-24 pts). Assessment: 13:32 General: Appears in no apparent distress. comfortable, Behavior is calm, cooperative. vg1 Pain: Denies pain. Neuro: Level of Consciousness is awake, alert, obeys commands, Oriented to person, place, time, situation. Cardiovascular: Patient's skin is warm and dry. Respiratory: Airway is patent Respiratory effort is even, unlabored, Respiratory pattern is regular, symmetrical, Breath sounds are clear bilaterally. Respiratory: Denies cough, shortness of breath. GI: Patient currently denies diarrhea, nausea, vomiting. : No signs and/or symptoms were reported regarding the genitourinary system. EENT: No signs and/or symptoms were reported regarding the EENT system. Derm: Skin is intact, is healthy with good turgor. Musculoskeletal: Circulation, motion, and sensation intact. 14:47 Reassessment: Patient appears in no apparent distress at this time. No changes from vg1 previously documented assessment. Patient and/or family updated on plan of care and expected duration. Pain level reassessed. Patient is alert, oriented x 3, equal unlabored respirations, skin warm/dry/pink. Vital Signs: 13:09 BP 103 / 58; Pulse 65; Resp 17; Temp 98.2; Pulse Ox 96% ; Weight 127.01 kg; Height 6 ll1 ft. 7 in. (200.66 cm); Pain 5/10; 13:33 BP 104 / 62; Pulse 62; Resp 16; Pulse Ox 99% on R/A; vg1 14:00 BP 106 / 68; Pulse 55; Resp 18; Pulse Ox 100% on R/A; vg1 13:09 Body Mass Index 31.54 (127.01 kg, 200.66 cm) ll1 ED Course: 12:59 Patient arrived in ED. ds1 13:11 Triage completed. ll1 13:11 Arm band placed on. ll1 13:12 Rashard Rodríguez NP is PHCP. pm1 13:12 Claudy Sparks MD is Attending Physician. pm1 13:22 Ceci Garza, SAMEERA is Primary Nurse. vg1 13:34 Patient has correct armband on for positive identification. Bed in low position. Call 1 light in reach. 13:46 COVID swab sent to lab. Flu and/or RSV swab sent to lab. Strep swab sent to lab. vg1 15:58 No provider procedures requiring assistance completed. Patient did not have IV access vg1 during this emergency room visit. Administered Medications: No medications were administered Outcome: 15:42 Discharge ordered by . pm1 15:58 Discharged to home ambulatory. vg1 15:58 Condition: stable 15:58 Discharge instructions given to patient, Instructed on discharge instructions, follow up and referral plans. Demonstrated understanding of instructions, follow-up care. 15:59 Patient left the ED. vg1 Signatures: Glenny Webber ds1 Rashard Rodríguez NP CORPORATE COUNSELOR pm1 Ceci Garza RN RN vg1 Michelle Parker RN RN ll1
--- NOTE | 2021-01-08 15:42 | EDPHYS ---
Physician Documentation [facility] Name: Rica Ribeiro Jr Age: 60 yrs Sex: Male : 1960 Arrival Date: 01/08/2021 Time: 12:59 Bed 26 Private MD: ED Physician Claudy Sparks HPI: 01/08 13:32 This 60 yrs old Black Male presents to ER via Ambulatory with complaints of Fever, pm1 Chills. 13:32 Patient is here for COVID-19 testing. Patient reports subjective fever and chills for pm1 the past 2 days. Patient's family members just tested positive for COVID in the ER here so he would like to be tested also. Onset: The symptoms/episode began/occurred 2 day(s) ago. Severity of symptoms: in the emergency department the symptoms. No sore throat, runny nose, earache, chest pain, shortness of breath, n/v/d. Historical: - Allergies: 13:11 NKA; ll1 - PMHx: 13:11 blood clots DVT; Diabetes - NIDDM; Hyperlipidemia; neuropathy; staph infection; ll1 - PSHx: 13:11 Knee surgery; back surgery; thoracic surgery; ll1 - Immunization history:: Flu vaccine is not up to date. - Social history:: Smoking status: Patient denies any tobacco usage or history of. ROS: 13:22 Eyes: Negative for injury, pain, redness, and discharge, ENT: Negative for injury, pm1 pain, and discharge, Neck: Negative for injury, pain, and swelling, Cardiovascular: Negative for chest pain, palpitations, and edema, Respiratory: Negative for shortness of breath, cough, wheezing, and pleuritic chest pain, Abdomen/GI: Negative for abdominal pain, nausea, vomiting, diarrhea, and constipation, Back: Negative for injury. Chronic low back pain MS/Extremity: Negative for injury and deformity, Chronic knee pain Skin: Negative for injury, rash, and discoloration, Neuro: Negative for headache, weakness, numbness, tingling, and seizure. 13:22 Constitutional: Positive for chills, fever. Exam: 13:22 Constitutional: This is a well developed, well nourished patient who is awake, alert, pm1 and in no acute distress. Head/Face: Normocephalic, atraumatic. 13:22 Back: No spinal tenderness. No costovertebral tenderness. Full range of motion. Skin: Warm, dry with normal turgor. Normal color with no rashes, no lesions, and no evidence of cellulitis. MS/ Extremity: Pulses equal, no cyanosis. Neurovascular intact. Full, normal range of motion. 13:22 Cardiovascular: Exam negative for acute changes, Rate: normal, Rhythm: regular, Pulses: no pulse deficits are appreciated. 13:22 Respiratory: Exam negative for acute changes, respiratory distress, shortness of breath. 13:22 Neuro: Exam negative for acute changes, Orientation: is normal, Mentation: is normal, Motor: is normal, moves all fours. Vital Signs: 13:09 BP 103 / 58; Pulse 65; Resp 17; Temp 98.2; Pulse Ox 96% ; Weight 127.01 kg; Height 6 ll1 ft. 7 in. (200.66 cm); Pain 5/10; 13:33 BP 104 / 62; Pulse 62; Resp 16; Pulse Ox 99% on R/A; vg1 14:00 BP 106 / 68; Pulse 55; Resp 18; Pulse Ox 100% on R/A; vg1 13:09 Body Mass Index 31.54 (127.01 kg, 200.66 cm) ll1 MDM: 13:24 Patient medically screened. pm1 13:47 Data reviewed: vital signs. Data interpreted: Pulse oximetry: on room air is 99 %. pm1 Interpretation: normal. 15:41 Counseling: I had a detailed discussion with the patient and/or guardian regarding: the pm1 historical points, exam findings, and any diagnostic results supporting the discharge/admit diagnosis, lab results, the need for outpatient follow up, to return to the emergency department if symptoms worsen or persist or if there are any questions or concerns that arise at home. 01/08 13:31 Order name: Strep; Complete Time: 15:15 pm1 01/08 13:31 Order name: Droplet/Contact Precautions; Complete Time: 13:32 pm1 01/08 15:09 Order name: Throat Culture EDNC 01/08 15:42 Order name: COVID-19/FLU A+B; Complete Time: 15:42 EDNC 01/08 13:31 Order name: Labs collected and sent; Complete Time: 13:46 pm1 01/08 13:31 Order name: O2 Per Protocol; Complete Time: 13:32 pm1 Administered Medications: No medications were administered Disposition: 16:43 Co-signature as Attending Physician, Claudy Sparks MD. rn Disposition: 01/08/21 15:42 Discharged to Home. Impression: Coronavirus infection, unspecified. - Condition is Stable. - Discharge Instructions: COVID-19. - Medication Reconciliation Form, Thank You Letter, Antibiotic Education, Prescription Opioid Use form. - Follow up: Emergency Department; When: As needed; Reason: Worsening of condition. Follow up: Private Physician; When: 2 - 3 days; Reason: Recheck today's complaints, Continuance of care, Re-evaluation by your physician. - Problem is new. - Symptoms have improved. Signatures: Dispatcher [employer] EDMS Claudy Sparks MD MD rn Rashard Rodríguez, COLD ROLL CATCHER COLD ROLL CATCHER pm1 Ceci Garza, RN RN vg1 Michelle Parker RN RN ll1 Corrections: (The following items were deleted from the chart) 14:54 13:31 Influenza Screen (A \T\ B)+BA.LAB.BRZ ordered. EDMS EDMS 14:54 13:31 CORONAVIRUS+MR.LAB.BRZ ordered. EDMS EDMS 15:59 15:42 01/08/2021 15:42 Discharged to Home. Impression: Coronavirus infection, vg1 unspecified. Condition is Stable. Forms are Medication Reconciliation Form, Thank You Letter, Antibiotic Education, Prescription Opioid Use. Follow up: Emergency Department; When: As needed; Reason: Worsening of condition. Follow up: Private Physician; When: 2 - 3 days; Reason: Recheck today's complaints, Continuance of care, Re-evaluation by your physician. Problem is new. Symptoms have improved. pm1
== END 2021-01-08 15:59 | disposition home or self-care (01) ==
LOC: ER 12:57
DX: U07.1 COVID-19 (principal)
CPT/HCPCS: 87070; 87081; 0240U; 99283

== ENCOUNTER 2021-01-11 22:13 | Inpatient (IN) | payer OTHER ==
--- OUTSIDE RECORDS SUMMARY | 2021-01-11 22:19 | XMS REPORT | Continuity of Care Document ---
:1960 Author Organization [facility] t Address [address] [place] [address] Care Team Providers Name Role Phone PARK [...] Mem oria 07-14 09:59:00 l XRAY 09:59: Upper [place] 00 Active 07/14/2017 [facility] BACK PAIN Diagnosis Active 2017-07-15 Memoria 06-19 22:02:00 l BACK 00:00: [place] PAIN 00 Active 06/19/2017 Hilary [facility] 724.2 Diagnosis Active 2015-07-17 Mem oria 05-24 17:22:00 l 724.2 00:00: Moy 00 Active 05/24/2015 [facility] 724.2 Diagnosis Active 2015-06-19 Mem oria ACUTE LOW 7- 15:38:00 l BACK PAIN 724.2 00:00: Tomer n ACUTE LOW 00 BACK PAIN Active 05/09/2015 [facility] Chronic Problem Resolve 2019-10-29 [facility] oria back pain d 02:08:59 l (disorder) Chronic Her perez back pain (disorder) Resolved Problem 10/29/2019 [facility] Diabetes Problem Resolve 2019-10-29 Il moria mellitus d 02:08:59 l (disorder) Diabetes He rmann mellitus (disorder) Resolved Problem 10/29/2019 [facility] Hypertensi Problem Resolve 2019-10-29 Memoria ve d 02:08:59 l disorder, Moy systemic Hypertensi arterial ve (disorder) disorder, systemic arterial (disorder) Resolved Problem 10/29/2019 [facility] Type 2 Diagnosis Active 2017-10-29 [facility] oria diabetes 03:45:29 l mellitus Type 2 Tomer n without diabetes complicati mellitus on, without without complicati long-term on, current without use of long-term insulin current use of insulin Active Diagnosis 10/29/2017 2.16.840.1 .842226.4. ..225 68 Staphyloco Diagnosis Active 2017-10-29 [facility] ccus 03:45:29 l aureus Moy bacteremia Staphyloco with ccus sepsis aureus bacteremia with sepsis Active Diagnosis 10/29/2017 2.16.840.1 .932016.4. 11.225 68 Abscess in Diagnosis Active 2017-10-29 Memoria epidural 03:45:29 l space of Abscess Margo nn thoracic in spine epidural space of thoracic spine Active Diagnosis 10/29/2017 2.16.840.1 .364548.4. 391.11.225 68 Local Diagnosis Active 2017-09-10 Mem oria infection 03:45:50 l of the Local [place] skin and infection subcutaneo of the us tissue, skin and unspecifie subcutaneo d us tissue, unspecifie d Active Diagnosis 09/10/2017 2.16.840.1 .214835.4. 391.11.225 68 Abrasion Diagnosis Active 2017-09-10 M emoria of right 03:45:50 l front wall Abrasion He rmann of thorax, of right subsequent front wall encounter of thorax, subsequent encounter Active Diagnosis 09/10/2017 2.16.840.1 .566092.4. 391225 68 Osteomyeli Problem Active 2017-10-29 M emoria tis 03:45:29 l Moy Osteomyeli tis Active Problem 10/29/2017 2.16.840.1 .270160.4. 39111.225 68 Sepsis Problem Active 2017-10-29 Memor ia 03:45:29 l Sepsis Moy Active Problem 10/29/2017 2.16.840.1 .756603.4. 391.225 68 Bacteremia Problem Active 2017-10-29 M emoria 03:45:29 l Moy Bacteremia Active Problem 10/29/2017 2.16.840.1 .218970.4. 391.225 68 HTN Problem Active 2017-10-29 Memor ia (hypertens 03:45:29 l ion) HTN Upper Tract (hypertens ion) Active Problem 10/29/2017 2.16.840.1 .183883.4. 391.225 68 Epidural Problem Active 2017-10-29 Mem oria abscess 03:45:29 l Epidural Tomer n abscess Active Problem 10/29/2017 2.16.840.1 .423403.4. 39111.225 68 Chronic Problem Active 2017-10-29 Kiko madelin back pain 03:45:29 l Chronic [place] back pain Active Problem 10/29/2017 2.16.840.1 .348287.4. 39111.225 68 Simple Problem Active 2019-10-29 Memor ia obesity 02:08:59 l (disorder) Simple Herm jah obesity (disorder) Active Problem 10/29/2019 [facility] DORSALGIA, Diagnosis Active 2017-07-15 Memoria UNSPECIFIE 22:02:00 l D Moy DORSALGIA, UNSPECIFIE D Active [facility] Allergies, Adverse Reactions, Alerts Allergy Allergy Status Severity Reaction(s) Onset Inactive Treating Comm ents Source Name Type Date Date Clinician N.K.D.A. N.K.D.A. Active Info Not 2017-1 Kiko madelin Available 2-14 l 00:00: Moy 00 No Known No Known Active Memori a Medicati Medicati l on on Moy Brown s s Social History Smoking Status Start Date Stop Date Source Social History [facility] Medications Ordered Filled Start Stop Current Ordering Indication Dosage Frequency Signature Comments Components Source Medication Medication Date Date Medication? Clinician (SIG) Name Name MetFORMIN MetFORMIN Yes Deepthi [address] [facility] HCl ER HCl ER 6-17 [place] [facility]oria 00 meal [facility] Xarelto Xarelto 2018-10 Yes Deepthi [address] 2-09 [place] [facility]: [facility] l [facility] Cefazolin Yes Soto not Kiko madelin in D5W 1-10 Garza defined l 03:45: [place] 29 Duexis 2017-0 Yes Soto TAKE 1 Memor ia 1-10 Garza TABLET BY l 03:45: MOUTH 3 [place] 29 TIMES A DAY FOR 30 DAYS Opana ER 2017-0 Yes Soto (Schedule Memoria 1-10 Garza II Drug) l 03:45: TAKE 1 [place] 29 TABLET BY MOUTH EVERY 12 HOURS FOR PAIN Gabapentin 2017-0 Yes Soto TAKE 1 M emoria 1-10 Garza TABLET BY l 03:45: MOUTH 3 Moy 29 TIMES A DAY FOR 30 DAYS Cyclobenzap 2017-0 Yes Soto TK 1 T PO Memoria rine HCl 1-10 Garza Q 8 H PRN l 03:45: MUSCLE [place] 29 SPASMS Methocarbam 2018-0 Yes Soto TAKE 1 TO Memoria ol 1-10 Garza 2 TABLETS l 03:45: BY MOUTH Moy 29 EVERY 8 HOURS NEEDED FOR MUSCLE SPASM 5 DAYS Oxymorphone 2018-0 Yes Soto (Schedule Memoria HCl 1-10 Garza II Drug) l 03:45: TAKE 1 [place] 29 TABLET BY MOUTH EVERY 6 HOURS [...] Memori a 06-30 Route: l 19:25: IVP, [place] 00 Q5Min, Dosing Weight 129, kg, PRN [...] INJ (ANES) 06-30 Total l 17:39: Volume: [place] 00 1,000, Start date: 06/30/17 12:39:00 CDT, [...] Notes: Memoria 06-30 (Same l 15:32: as:MORPhin Upper T[place] 00 e Sulfate) Lactated 2017-0 No 1,000 [...] WASTE: F/P l 22:01: - Sink; E [place] - Municipal Trash Bin K-Dur 20 No Notes: Memoria 06-28 (Same as: l 22:01: K-Dur ) Moy 00 "Do Not Crush" With food and full glass of water gabapentin No Notes: Memor ia 06-28 (Same as: l 10:30: Neurontin) Upper [place] 00 heparin No Notes: Memoria sodium, 06-28 porcine l porcine 05:00: heparin [place] 2500 UNT/ML 00 Injectable Solution gabapentin Yes 800 mg = 1 M emoria 800 MG Oral 06-28 tab, PO, l Tablet 01:45: TID, # 90 Tomer n 00 tab, 3 Refill(s) Acetaminoph Yes 1 tab, PO, Memoria en 325 MG / 06-28 Q6H, PRN l Hydrocodone 01:45: for pain, H ermann Bitartrate 00 # 24 tab, 10 MG Oral 0 Tablet Refill(s) [[place] 10/325] Docusate No Notes: Memoria Sodium 100 06-27 (Same as: l MG Oral 22:00: Colace) Upper [place] Capsule (Do Not Crush) Hydromorpho No 15 mg, 30 M emoria ne 06-27 mL, Route: l 19:30: IV, Moy Initial Loading Dose: 0.4mg, SALES SERVICE REP Dose: 0.2 mg, SALES SERVICE REP Lockout: 10 minutes, Continuous Basal Rate: 0 mg, 4 Hour Limit (In MG): 6, Continuous , Start date: 06/27/17 14:30:00 CDT, Duration: 30 day, Stop date: 07/27/17 14:29:00 CDT Naloxone No Notes: Memoria 06-27 Same as l 19:12: Narcan Morphine No 30 mg, 30 Kiko madelin 9-08 mL, Route: l 19:00: IV, Initial Loading Dose: 2 mg, SALES SERVICE REP Dose: 1 mg, SALES SERVICE REP Lockout: 10 minutes, Continuous Basal Rate: 0 [...] 06-27 Rate: 125 l 0.0014 18:49: ml/hr, Upper [place] MEQ/ML / 00 Infuse Potassium over: 8 Chloride hr, Route: 0.004 IV, Dosing MEQ/ML / Weight 129 Sodium kg, Total Chloride Volume: 0.103 1,000, MEQ/ML / Start Sodium date: Lactate 06/27/17 0.028 13:49:00 MEQ/ML CDT, Injectable Duration: Solution 30 day, Stop date: 07/27/17 13:48:00 CDT Oxycodone No Notes: Memori a 06-27 (Same as: l 18:49: Roxicodone Upper [place] 00 ) Acetaminoph No Notes: Max Memoria en 06-27 acetaminop l 18:49: hen 4000 Upper [place] 00 mg/day (4 gm/day). (Same as: Tylenol Extra Strength) Hydralazine No Notes: Kiko madelin 06-27 (Same as: l 18:49: Apresoline Upper T[place] 00 ) Push over 5 minutes Naloxone [...] 06-27 not give l 18:43: IV push. Upper [place] (Same as: Phenergan) Acetaminoph No Notes: Do M emoria en 325 MG / 06-27 not exceed l Hydrocodone 18:43: 4gm/day of Moy Bitartrate 00 acetaminop 10 MG Oral hen. Tablet (Same as: [place] 325/10) phenylephri No Route: IV, Memoria ne [...] as: l / 14:38: Duoneb) Ipratropium 00 Silver Plume 0.167 MG/ML Inhalant Solution Calcium No 1,000 [...] 06-27 Drug form: l 14:21: INJ, ONCE, [place] 00 Stop date: 06/27/17 9:21:00 CDT rocuronium 2016- No Route: IV, M emoria (ANES) 06-27 Drug form: l 14:21: INJ, ONCE, Stop date: 06/27/17 9:21:00 CDT lidocaine 2017-0 No Route: IV, Me moria (ANES) 06-27 Drug form: l 14:16: INJ, ONCE, Stop date: 06/27/17 9:16:00 CDT midazolam 2016-0 No Route: IV, Me moria (ANES) 06-27 Drug form: l 14:16: SOLN, Upper [place] 00 ONCE, Stop date: 06/27/17 9:16:00 CDT acetaminoph 2016- No Route: IV, Memoria en (ANES) 06-27 Drug form: l 14:16: INJ, ONCE, Stop date: 06/27/17 9:16:00 CDT fentaNYL 2017-0 No Route: IV, Mem oria (ANES) 06-27 Drug form: l 14:16: INJ, ONCE, [place] 00 Stop date: 06/27/17 9:16:00 CDT ceFAZolin [...] -epinephrin 06-27 (bupivacai l e 12:10: ne-epi Upper [place] 0.25%-1:200 00 0.25%-1:20 ,000 0,000 30 preservativ ml VL) e-free Not for injectable use in solution continuous infusion. 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 Tablet (Same as: [[place] 10/325] 325/10) Dilaudid No 1 mg, 1 [...] Memoria 06-20 (Same as: l 03:48: Benadryl) [place] 00 Hydrocodone Hydrocodone Yes Deepthi not [facility] -Acetaminop -Acetaminop [place] defined [facility] Clinics Trazodone Trazodone Yes Deepthi [address] [facility] HCl HCl [place] at bed[facility] Tizanidine Tizanidine Yes Deepthi tablet [facility] HCl HCl [place] [facility] Lyrica Lyrica Yes Deepthi 1 capsule [facility] [place] [facility] Vital Signs Vital Name Observation Time Observation Value Comments Source Weight 2017-10-02 20:30:00 [facility] Moy Height 2017-10-02 20:30:00 [facility] Moy Temperature Oral (F) 2017-10-02 20:30:00 97.6 F [facility] Moy Heart Rate 2017-10-02 20:30:00 [facility] [place] Diastolic (mm Hg) 2017-10-02 20:30:00 Mem orial [place] Systolic (mm Hg) 2017-10-02 20:30:00 Kiko rial Moy Weight 2017-09-18 19:25:00 [facility] Moy BMI Calculated 2017-09-18 19:25:00 Memori al [place] Height 2017-09-18 19:25:00 200.66 cm [facility] [place] Weight 2017-09-09 20:45:00 [facility] [place] Height 2017-09-09 20:45:00 [facility] Moy Temperature Oral (F) 2017-09-09 20:45:00 98.2 F [facility] Moy Heart Rate 2017-09-09 20:45:00 [facility] [place] Diastolic (mm Hg) 2017-09-09 20:45:00 Mem orial [place] Systolic (mm Hg) 2017-09-09 20:45:00 Kiko rial [place] Weight 2017-08-19 19:00:00 [facility] Moy Height 2017-08-19 19:00:00 [facility] [place] Temperature Oral (F) 2017-08-19 19:00:00 97.9 F [facility] Moy Heart Rate 2017-08-19 19:00:00 [facility] [place] Diastolic (mm Hg) 2017-08-19 19:00:00 Mem orial [place] Systolic (mm Hg) 2017-08-19 19:00:00 Kiko rial [place] Weight 2017-08-12 18:30:00 [facility] [place] Height 2017-08-12 18:30:00 [facility] Moy Temperature Oral (F) 2017-08-12 18:30:00 98.1 F [facility] [place] Heart Rate 2017-08-12 18:30:00 [facility] [place] Diastolic (mm Hg) 2017-08-12 18:30:00 Mem orial [place] Systolic (mm Hg) 2017-08-12 18:30:00 Kiko rial [place] Weight 2017-08-05 19:30:00 [facility] Moy Height 2017-08-05 19:30:00 [facility] Moy Temperature Oral (F) 2017-08-05 19:30:00 978 F [facility] [place] Heart Rate 2017-08-05 19:30:00 [facility] [place] Diastolic (mm Hg) 2017-08-05 19:30:00 Mem orial Moy Systolic (mm Hg) 2017-08-05 19:30:00 Kiko rial [place] Weight 2017-07-22 18:15:00 [facility] [place] Height 2017-07-22 18:15:00 [facility] [place] Temperature Oral (F) 2017-07-22 18:15:00 98.3 F [facility] [place] Heart Rate 2017-07-22 18:15:00 [facility] [place] Diastolic (mm Hg) 2017-07-22 18:15:00 Mem orial [place] Systolic (mm Hg) 2017-07-22 18:15:00 Kiko rial Moy Respitory Rate 2017-07-05 00:47:00 Memori al [place] Systolic (mm Hg) 2017-07-04 21:00:00 Kiko rial Moy Diastolic (mm Hg) 2017-07-04 21:00:00 Mem orial Moy Respitory Rate 2017-07-04 21:00:00 Memori al Moy Temperature Oral (F) 2017-07-04 21:00:00 97.6 F [facility] [place] Heart Rate 2017-07-04 21:00:00 [facility] [place] Systolic (mm Hg) 2017-07-04 17:00:00 Kiko rial [place] Diastolic (mm Hg) 2017-07-04 17:00:00 Mem orial Moy Temperature Oral (F) 2017-07-04 17:00:00 97.9 F [facility] [place] Heart Rate 2017-07-04 17:00:00 [facility] Moy Systolic (mm Hg) 2017-07-04 13:10:00 Kiko rial [place] Diastolic (mm Hg) 2017-07-04 13:10:00 Mem orial Moy Heart Rate 2017-07-04 13:10:00 [facility] [place] Temperature Oral (F) 2017-07-04 13:10:00 98.5 F [facility] [place] Respitory Rate 2017-07-04 12:43:00 Memori al Moy Weight 2017-06-20 08:10:00 [facility] [place] BMI Calculated 2017-06-20 08:10:00 Memori al Moy Height 2017-06-20 08:10:00 200.66 cm Memorial Moy Heart Rate 2017-06-20 04:48:00 [facility] [place] Systolic (mm Hg) 2017-06-20 04:48:00 Kiko rial Moy Diastolic (mm Hg) 2017-06-20 04:48:00 Mem orial Moy Respitory Rate 2017-06-20 04:48:00 Memori al Moy Weight 2017-06-19 21:51:00 Memorial Moy BMI Calculated 2017-06-19 21:51:00 Memori al Moy Height 2017-06-19 21:51:00 200.66 cm Memorial Moy Temperature Oral (F) 2017-06-19 21:51:00 98.2 F [facility] [place] Respitory Rate 2017-06-19 21:51:00 Memori al [place] Heart Rate 2017-06-19 21:51:00 [facility] Moy Systolic (mm Hg) 2017-06-19 21:51:00 Kiko rial [place] Diastolic (mm Hg) 2017-06-19 21:51:00 Mem orial Upper [place] Procedures Procedure Date / Time Performed Performing Clinician Sourc e Arthroscopy<sup>1</sup> Memorial Moy Laminectomy with spinal [facility] [place] fusion Encounters Start End Encounter Admission Attending Care Care Encounter Source Date/Time Date/Time Type Type Clinicians Facility Department ID 2020-11-01 2020-11-01 Outpatient [facility] [id number] [facility] 2020-09-18 2020-09-18 [facility] [id number] [facility] 2020-07-18 2020-07-18 [facility] [id number] [facility] 2020-06-14 2020-06-14 Outpatient [facility] [id number] [place] 00:00:00 00:00:[address] 2020-06-09 2020-06-09 Outpatient [facility] [id number] [place] 00:00:00 00:00:[address] 2020-06-09 2020-06-09 Outpatient [facility] [id number] [place] 00:00:00 00:00:[address] 2020-05-29 2020-05-29 [facility] 2100 [id number] [place] 00:00:00 00:00:[address] 2020-05-22 2020-05-25 Inpatient [facility] [id number] [place] 00:00:00 00:00:[address] 2020-05-18 2020-05-18 Outpatient [facility] [id number] [place] 00:00:00 00:00:[address] 2020-05-09 2020-05-09 Outpatient [facility] [id number] [place] 00:00:00 00:00:[address] 2020-04-28 2020-04-28 Outpatient [facility] [id number] [place] 00:00:00 00:00:[address] 2020-04-28 2020-04-28 Outpatient [facility] [id number] [place] 00:00:00 00:00:[address] 2020-04-14 2020-04-14 Outpatient MIRIAM [facility] [id number] [place] 00:00:00 00:00:00 CHILO [address] 2020-04-11 2020-04-11 Outpatient TEDDY ALLEN [facility] 2100 [id number] [place] 00:00:00 00:00:[address] 2020-04-05 2020-04-05 [facility] [id number] [facility] 16:00[facility]00 16:00:00 [facility] Clinics 2020-03-31 2020-03-31 Outpatient TEDDY ALLEN [facility] 2100 [id number] [place] 00:00:00 00:00:[address] 2020-03-17 2020-03-17 Outpatient TEDDY ALLEN [facility] 2100 [id number] [place] 00:00:00 00:00:[address] 2020-03-17 2020-03-17 Outpatient TEDDY ALLEN [facility] 2100 [id number] [place] 00:00:00 00:00:[address] 2019-10-26 2019-10-26 Outpatient MARTHA KapoorSCHER MHMISCHER [id number] 08:15:00 23:59:59 Torres Chavez 2019-10-26 2019-10-26 Outpatient MARTHA KapoorSCHER MHMISCHER [id number] 08:15:00 08:15:00 Torres Chavez 2019-10-04 2019-10-04 [facility] [id number] [facility] 11[facility]00:00 11:00:00 [facility] Clin[facility] 2019-09-27 2019-09-27 [facility] [id number] 11:00:00 11:00:00 [facility] 2018-10-21 2018-10-21 [facility] [id number] [facility] 15:45:00 15:45:00 [facility] 2018-09-17 2018-09-17 [facility] [id number] 14:35:00 14:35:00 [facility] Clinics 2018-06-04 2018-06-04 Outpatient Katie MARTHASCHER MHMISCHER [id number] 09:00:00 09:00:00 Pat 2017-10-02 2017-10-02 Outpatient [facility] [id number] [facility] 14:30:00 14:30:00 [facility] 2017-09-18 2017-09-18 Outpatient Jess KRISTAMISCHER MHMISCHER [id number] 09:45:00 23:59:59 Akbar 02 Trice 2017-09-09 2017-09-09 Outpatient [facility] [id number] [facility] 14:45:00 14:45:00 [facility] 2017-09-05 2017-09-05 Outpatient CYNTHIA Amaral [facility] [id number] 07:48:00 23:59:00 Harita 2017-08-19 2017-08-19 Outpatient [facility] [id number] [facility]Clinic 14:00:00 14:00:00 [facility] 2017-08-12 2017-08-12 Outpatient [facility] [id number] [facility]Clinic 13:30:00 13:30:00 [facility] 2017-08-05 2017-08-05 Outpatient [facility] [id number] [facility]Clinic 14:30:00 14:30:00 [facility] 2017-07-22 2017-07-22 Outpatient [facility] [id number] [facility]Clinic 13:15:00 13:15:00 [facility] 2017-07-14 2017-07-14 Outpatient CYNTHIA Gandhi [facility] [id number] 09:58:00 23:59:00 Colby Gonzalez 2017-06-20 2017-07-04 [facility] [id number] 15:23:00 21:15:00 Pete Cesar 2017-06-19 [facility] [id number] 16:40:00 00:38:00 Poppy 02 Jennifer Results Test Description Test Time Test Comments Results Result Comments Source CHEM PANEL 2017-07-01 135 [facility]o nn 15:27:00 CHEM PANEL 2017-07-01 13.2 [facility] nn 15:27:00 HEMATOLOGY 2017-07-01 32.6 [facility] Marg[facility] nn 15:27:00 HEMATOLOGY 2017-07-01 15:27:00 Test Item Value Reference Range Interpretation Comme nts MCH (test code = MCH) 26.3 pg 27.0-31.0 Memorial DekukrbJLNJFVCNBE3608-40-41 15:27:0080.5[facility] HermannHEMATOLOGY 2017-07-01 15:27:0031.2[facility] BpslffvPKIWJUWRNT6317-76-49 15:27:0010.2[facility] ZxnmlqlOILRTCCLOP7215-11-38 15:27:003.87[facility] HhhibeyTJPXWHWRIP5242-63-17 15:27:007.5[facility] ZiurbwgPFRAYJUPUJ5653-43-03 15:27:56157Xplciwjo Moy HGLMHVFAQY0733-43-32 15:27:0014.7[facility] MkfuzwyBCHWWBMLIT4300-65-34 15:27:00 4.9[facility]orial YbhddnxOLZZFCWVOG7556-33-64 15:27:000.2[facility] HermannHEMATOLOGY 2017-07-01 15:27:000.2[facility] CsrgjmmXGCKYSUPYH4347-36-51 15:27:000.7[facility] MijdeukEGSZGJBLZB5913-87-25 15:27:003.8[facility] BqooyrmIWXVGAGFDC6112-21-19 15:27:004.9[facility] WmfynbgNXNFBLSPWZ0463-12-37 15:27:001.4[facility] Moy JZNRJJVGSH2236-60-44 15:27:003.0[facility] DgljrtwITDLPIPWAF5620-98-98 15:27:00 29.4[facility]orial NqkbusaOPJUVJSFXS9228-90-81 15:27:0061.2[facility] HermannCHEM PANEL 2017-07-01 15:27:0088Mem[facility] HermannCHEM PGSYJ9198-07-20 15:27:004.2[facility] HermannCHEM OENAT4373-21-48 15:27:0096[facility] HermannCHEM WYFFU1059-98-30 15:27:0030[facility] HermannCHEM PCWZU0877-54-89 15:27:008.8[facility] HermannCHEM WRUIG0094-27-84 15:27:67638Swehgztt HermannCHEM KTGPT9037-11-75 15:27:0012 [facility] HermannCHEM RWMZP7531-69-30 15:27:000.95[facility] HermannHEMATOLOGY 2017-06-30 14:00:0014.5[facility] BstkkuhUWRTDEBAXS1044-09-70 14:00:007.2[facility] VsyotckBUETQVPGTV8457-87-88 14:00:49613Atepaipr RqrgxvbCSDGTNMKZA8453-09-14 14:00:0029.3[facility] QxfyhyjMNCWQOMNMD7693-76-75 14:00:003.59[facility] [place] YYQMMGJUQZ3280-36-85 14:00:009.6[facility] NigdarzXCAWDFKZMR8149-85-24 14:00:005.5 [facility] WydopicAJLSVAOFCE3326-46-16 14:00:0032.7[facility] HermannHEMATOLOGY 2017-06-30 14:00:0081.5[facility] FyvpyzjGHGVIERTCR4390-66-08 14:00:00 Test Item Value Reference Range Interpretation Comments MCH (test code = MCH) 26.7 pg 27.0-31.0 [facility] GbzhfuhURNOWOWAOZ7315-67-22 14:00:001.7[facility] HermannHEMATOLOGY 2017-06-30 14:00:000.3[facility] WijskuqGNTWUHKGPX9763-93-18 14:00:000.2[facility] WxkmbuhYKECMLAHNH8810-11-49 14:00:000.8[facility] KacndajJVWBPBJZOP4532-15-80 14:00:003.2[facility] AzbnxhsZUPOWDIEFE7185-88-78 14:00:005.9[facility] Moy QFCWOXHTJL7626-60-84 14:00:003.0[facility] UnzvprkICFLFVAGXL3160-60-92 14:00:00 31.6[facility] XigzbkuRIIJWOTGNX3476-75-68 14:00:0058.7[facility] HermannCHEM PANEL 2017-06-28 10:55:15027Ncmbztjj HermannCHEM OJUAX6864-32-96 10:55:0010.3[facility] HermannCHEM GJQZW7547-91-49 10:55:006.3[facility] HermannCHEM DKHWX0851-82-12 10:55:0099[facility] HermannCHEM UVLIL4528-45-65 10:55:000.54[facility] HermannCHEM VFZKP7995-63-23 10:55:007[facility] HermannCHEM CMQVZ2631-72-64 10:55:27612 [facility] HermannCHEM IEHMP1241-17-57 10:55:003.3[facility] HermannCHEM PANEL 2017-06-28 10:55:0023Mem[facility] HermannCHEM ZMFTX1530-46-90 10:55:58965Fvaqdnpy TklxshfWPYTTUZYQW4466-07-19 10:55:007.3[facility] UemouxuFDXVQZRUJK0536-08-59 10:55:003.18[facility] AnuvcubGBJWLDLNRL4046-71-81 10:55:93461Tsshyelo Moy XLUYZREEIA0671-51-83 10:55:0014.7[facility] RmtzonaQJSPCEMUFI2290-16-27 10:55:00 7.5[facility] GgthtqrNUOWNRNGWO9070-00-42 10:55:0026.0[facility]annHEMATOLOGY 2017-06-28 10:55:008.5[facility] HepqxkyYIWPYUVVTX5178-01-40 10:55:0081.9[facility] PhwsbzsHUUGHAWYPG6342-40-05 10:55:00 Test Item Value Reference Range Interpretation Comments MCH (test code = MCH) 26.8 pg 27.0-31.0 [facility] JvngnjpOIXGBLILXZ6909-45-48 10:55:0032.8[facility]annHEMATOLOGY 2017-06-28 10:55:000.5[facility] MfycmtmOVKFFCDMCD4629-01-96 10:55:000.3[facility] ZczcgeiOEQRIYLRQR5005-19-54 10:55:001.0[facility] QntfhqtGMQYJUSFEW2028-47-63 10:55:005.9[facility] KzcfcumBEJJDAFQEG5105-52-92 10:55:000.1[facility] [place] ELQIULNECE3516-53-16 10:55:001.3[facility] OfavprlYERZFIRLTO9500-10-31 10:55:00 80.5[facility] ClcgjeyNYYBMRNMWI1540-55-92 10:55:003.9[facility]annHEMATOLOGY 2017-06-28 10:55:0013.8[facility] CRAHQXM5475-79-92 14:20:00 Negative (06/27/17 9:20 AM)[facility]CHE[facility] WRWZB2182-22-59 23:15:002.9 [facility]CHE[facility] AMHAJ4346-35-17 23:15:002.5[facility]annCHEM PANEL 2017-06-26 23:15:0095[facility]annCHE[facility] IOVMW6438-08-10 23:15:0028[facility]annCHE[facility] XTLHB9586-84-31 23:15:008.5[facility]annCHE[facility] CMCMK2749-20-50 23:15:0043[facility]CHE[facility] MKCBH8844-98-52 23:15:0026[facility]annCHE[facility] LNKPH5184-51-57 23:15:002.1[facility]annCHE[facility] MYMMY9496-09-51 23:15:007.2 [facility]CHE[facility] AFNPJ7594-94-12 23:15:000.2[facility] HermannCHEM PANEL 2017-06-26 23:15:88815Cvrcfiho HermannCHEM JZGHS2919-18-87 23:15:001.00[facility] ZERYQ6395-80-14 23:15:00266Guainrrs HermannCHEM FBNTD8725-32-82 23:15:65028Ukcdcuxa HermannCHEM WNZKY9087-92-27 23:15:004.1[facility]annCHEM PAZSJ2071-68-79 23:15:009[facility]ann[facility]M ICGJJ7925-82-93 23:15:32506 [facility]ann[facility] UBCLV0039-57-53 23:15:0011.1[facility] HermannCHEM PANEL 2017-06-26 23:15:009[facility]annCHEM LRGVJ0381-00-19 23:15:000.4[facility] HermannCHEM LECAP6112-72-37 23:15:005.1[facility] LztlroeGMIQTXZLDL1181-33-20 23:15:001.12[facility] ItsjzqyJVNNTYUREB8054-01-81 23:15:00 Test Item Value Reference Range Interpretation Comments PT (test code = PT) 14.6 s 12.0-14.7 [facility] XtaixxsWWIILIARFB4639-34-71 23:15:000.1[facility] HermannHEMATOLOGY 2017-06-24 10:39:000.1[facility] HermannCHEM HFMRM3501-53-67 16:20:002.7[facility] JgaamfiHMHTCPONVK0283-95-12 16:20:000.1[facility] HermannCHEM KGDXH3175-85-78 12:48:001.56[facility] VvxmfbaTYEQCIDVVO0615-72-40 04:06:0016.3[facility] [place] CHEM FIBJX9869-45-77 09:49:002.6[facility] WrdvjkgDIMQEMYMWG6610-74-75 09:49:00 Clumped (06/21/17 4:49 AM)[facility] WxhwzdsEJBOUTBQAW2918-86-20 09:49:0097[facility] HermannCARDIAC TGGQQFV7041-73-03 21:14:55815Zmjatnff HermannCARDIAC ENZYMES 2017-06-20 21:14:000.8[facility]annCARDIAC GLTDECR8432-59-26 21:14:00<0.02 [facility]annCARDIAC FUTNZDD6292-77-59 21:14:000.5[facility] HermannIMMUNOLOGY 2017-06-20 21:14:30278.0[facility]annCARDIAC YLQWJLT4804-85-19 16:51:000.9 [facility]CARDIAC EPYYRGW2993-87-37 16:51:00<0.02[facility] CARDIAC DYAWOVX7003-21-49 16:51:0095[facility]annCARDIAC ZKIQVBM6302-84-92 13:33:000.7[facility]annCARDIAC HKJMMXA5390-53-51 13:33:000.7[facility] CARDIAC RQGPHAX4151-35-05 13:33:00<0.02[facility] HermannCARDIAC ENZYMES 2017-06-20 13:33:29973Ibjlsxon HermannCHEM UDAPS8225-70-76 13:33:001.3[facility] HermannCHEM LJLYV9172-55-45 13:33:53787Oconeajy HermannCHEM GZOXD4392-12-92 13:33:000.7[facility] HermannCHEM LWXVU0869-84-26 13:33:0055[facility]annCHEM ZIDNI6371-31-53 13:33:0040[facility]annCHEM LGVOW1909-62-31 13:33:004.9 [facility]annCHEM WXXKT8462-70-16 13:33:003.2[facility] HermannCHEM PANEL 2017-06-20 13:33:008.1[facility]annCHEM GPFIM7869-33-36 13:33:0017[facility]annURINE AND HTYVL5088-44-75 04:49:00Negative (06/19/17 11:49 PM)[facility] XJOTB0155-16-30 04:49:00 Test Item Value Reference Range Interpretation Comments UA pH (test code = UA pH) 6.0 1 5.0-8.0 [facility] [id number] 04:49:00Clear (06/19/17 11:49 PM) [facility] LUGZA0631-81-68 04:49:00<=1.005 *NA*(06/19/17 11:49 PM)[facility] AQXJY5843-10-21 04:49:00Yellow *NA*(06/19/17 11:49 PM)[facility] EVUDT8767-93-82 04:49:00None Seen (06/19/17 11:49 PM)[facility] LTYVR1460-44-46 04:49:00None Seen (06/19/17 11:49 PM)[facility] [id number] 04:49:00Negative (06/19/17 11:49 PM) [facility] MBZZC1896-45-29 04:49:00None Seen (06/19/17 11:49 PM) [facility] BOQPV5057-48-54 04:49:00Negative (06/19/17 11:49 PM) [facility] YGFGL1796-35-25 04:49:00Negative (06/19/17 11:49 PM) [facility] HKQVT6577-96-22 04:49:000.2[facility] AND MNTNM8998-63-25 04:49:00Negative *NA*(06/19/17 11:49 PM)[facility] IWGIM5535-22-62 04:49:00Negative *NA*(06/19/17 11:49 PM)[facility] KEQCU7875-34-95 04:49:00Negative (06/19/17 11:49 PM)[facility] HermannCHEM PANEL 2017-06-20 04:31:0017[facility] HermannCHEM MAZRF4685-94-45 04:31:005.3[facility] HermannCHEM ZNPEW8596-32-40 04:31:000.6[facility] HermannCHEM UHDSG5230-83-00 04:31:009.5[facility] HermannCHEM UCUQI0174-08-21 04:31:0012[facility]annCHEM HYXSS0093-70-66 04:31:0086[facility] HermannCHEM RXOAX2688-76-08 04:31:000.4 [facility]annCHEM IJMKJ5672-86-19 04:31:008.5[facility] HermannCHEM PANEL 2017-06-20 04:31:0094[facility] HermannCHEM HZHXR2744-51-88 04:31:0030[facility] HermannCHEM NWIZN5214-89-33 04:31:008.8[facility] HermannCHEM MZXMD4255-16-95 04:31:0048[facility] HermannCHEM CRFAF3480-25-63 04:31:003.2[facility] HermannCHEM TEAJF7363-93-18 04:31:48994Xlpimlmy HermannCHEM MANKL6020-87-47 04:31:004.5 [facility]annCHEM PAIND4263-66-65 04:31:0019[facility] HermannCHEM PANEL 2017-06-20 04:31:32107Gfsiveip HermannCHEM TRVFH7998-21-26 04:31:001.09[facility] HermannCHEM XLQZI9623-18-73 04:31:70721Knstorrq JgkthkkQKOIVIQJME3472-35-78 04:31:00Normal (06/19/17 11:31 PM)[facility] NbwbrlhXUWIFLJFLY1675-45-81 04:31:00 Normal (06/19/17 11:31 PM)[facility] FdvnqtjFQZNMRTYGQ2328-37-74 04:31:0074.0 [facility] ZpsjhuuYDCODKIGMZ4424-09-03 04:31:0012.6[facility] HermannHEMATOLOGY 2017-06-20 04:31:005.0[facility] NhqfemhIOYKWGTBJU2071-77-11 04:31:0013.0[facility] JopkiwoVODCSIYXYF0474-31-02 04:31:007.0[facility] TlrglisREXBFGLHBZ2316-58-18 04:31:001.0[facility] ImnstuqIBYAQHTNDG6570-11-46 04:31:000.8[facility] [place] GBIYISUDEA4656-63-60 04:31:002.0[facility] OrevpatPWFSBTHLFB6123-85-43 04:31:00 37.7[facility] XeliosjXGKCXSOKLE2119-88-88 04:31:0080.7[facility] HermannHEMATOLOGY 2017-06-20 04:31:0032.5[facility] KozkezhDCKVHVNEMX2967-75-70 04:31:00 Test Item Value Reference Range Interpretation Comments MCH (test code = MCH) 26.2 pg 27.0-31.0 [facility] TawxtpuXSHICGWEQN3058-02-31 04:31:0014.3[facility] HermannHEMATOLOGY 2017-06-20 04:31:007.9[facility] QgqkjhqLCOMDBIEPW0519-32-07 04:31:74408Qcjjjkuz LynownhDOFEOOWQVH9350-29-83 04:31:0012.2[facility] AdcckhoPSGNMRSIUI8959-02-17 04:31:004.67[facility] OlpyeymCMRFCYBYOY7519-44-38 04:31:0015.5[facility] MOLECULAR YQOSABBMNF7956-69-79 04:31:00Not Detected (06/19/17 11:31 PM)[facility] HermannMOLECULAR NBYOLNQBAT7915-56-15 04:31:00Not Detected (06/19/17 11:31 PM) [facility]annMOLECULAR SWQWIHCGUA0184-15-95 04:31:00Not Detected (06/19/17 11:31 PM)[facility]annMOLECULAR HTJBHGADOL6049-47-85 04:31:00Not Detected (06/19/17 11:31 PM)[facility]annMOLECULAR QSRYFOIHFR9288-28-51 04:31:00Not Detected (06/19/17 11:31 PM)[facility]annMOLECULAR NXENKHAFOS7006-38-35 04:31:00Not Detected (06/19/17 11:31 PM)[facility]annMOLECULAR DIAGNOSTIC 2017-06-20 04:31:00Detected *ABN*(06/19/17 11:31 PM)[facility]annMOLECULAR QPYRWPPFQQ0220-31-45 04:31:00Not Detected (06/19/17 11:31 PM)[facility] MOLECULAR GSMOKXEUHQ1647-36-31 04:31:00Not Detected (06/19/17 11:31 PM)[facility]annMOLECULAR AJXUNRLVVN6196-20-34 04:31:00Detected *ABN*(06/19/17 11:31 PM) [facility]annMOLECULAR VWMAVNQGBB9747-30-02 04:31:00Not Detected (06/19/17 11:31 PM)[facility]annMOLECULAR IDYTAFWSFL4788-66-25 04:31:00Not Detected (06/19/17 11:31 PM)[facility]annMOLECULAR ESATWGWYPI1547-13-42 04:31:00Not Detected (06/19/17 11:31 PM)[facility]annMOLECULAR WQRLFLSXGZ3211-67-28 04:31:00Not Detected (06/19/17 11:31 PM)[facility] DIAGNOSTIC 2017-06-20 04:31:00Not Detected (06/19/17 11:31 PM)[facility]
[2021-01-11] MEDS ORDERED: NA CHLORIDE 0.9% 1,000 ML ONE ×2 (23:30→23:55)
[2021-01-11 23:44] LABS: Absolute Lymphocytes (CBC) 0.8 K/uL (0.7-4.9); Basophils % 0.6 % (0-1.3); Hematocrit 36.2 % (39.6-49.0); Lymphocytes % 24.5 % (15.3-44.8); MPV 8.9 fL (7.6-11.3); RBC Red Blood Cell Count 4.54 M/uL (4.33-5.43)
[2021-01-11 23:45] LABS: Protime INR 2.14
[2021-01-11 23:55] LABS: ALT/SGPT 19 U/L (12-78); AST/SGOT 29 U/L (15-37); Albumin 3.4 g/dL (3.4-5.0); Alkaline Phosphatase 82 U/L (45-117); BUN Blood Urea Nitrogen 16 mg/dL (7-18); Bicarbonate 24 mmol/L (21-32); Bilirubin Direct < 0.1 mg/dL (0-0.2); Bilirubin Total 0.3 mg/dL (0.2-1.0); Glucose Level 113 mg/dL (74-106); Magnesium 2.3 mg/dL (1.8-2.4); NT PRO-BNP 65 pg/mL (<125); Potassium 4.3 mmol/L (3.5-5.1); Protein, Total 7.3 g/dL (6.4-8.2); Sodium Level 138 mmol/L (136-145); Troponin (Emerg Dept Use Only) < 0.02 ng/mL (0.0-0.045)
[2021-01-11] MEDS ORDERED: NA CHLORIDE 0.9% 250 ML ONE (23:55)
[2021-01-11] MEDS ORDERED: METHYLPREDNISOLONE 125 MG INJ ONE (23:55)
[2021-01-11] MEDS ORDERED: AZITHROMYCIN 500 MG INJ IVPB ONE (23:55)
--- NOTE | 2021-01-12 00:19 | EDPHYS ---
Physician Documentation [facility] Name: Rica Ribeiro Jr Age: 60 yrs Sex: Male : 1960 Arrival Date: 01/11/2021 Time: 22:19 Bed 14 Private MD: ED Physician Regina Joy HPI: 01/11 23:24 This 60 yrs old Black Male presents to ER via Wheelchair with complaints of Nausea, ma2 Cough, COVID +. 23:24 Onset: The symptoms/episode began/occurred gradually, 1 day(s) ago. Associated signs ma2 and symptoms: Pertinent positives: fever, nausea, Pertinent negatives: belching, diarrhea. Severity of symptoms: At their worst the symptoms were moderate in the emergency department the symptoms are unchanged. The patient has not experienced similar symptoms in the past. Historical: - Allergies: 23:20 NKA; jb4 - Home Meds: 23:20 gabapentin 800 mg Oral tab 1 tab 3 times per day [Active]; hydrocodone-acetaminophen jb4 10-325 mg Oral tab 1 tab every 6 hours [Active]; meloxicam Oral [Active]; methocarbamol 500 mg Oral tab [Active]; sulfamethoxazole-trimethoprim 800-160 mg Oral tab [Active]; - PMHx: 23:20 Diabetes - NIDDM; Hyperlipidemia; neuropathy; staph infection; blood clots DVT; jb4 - PSHx: 23:20 Knee surgery; back surgery; thoracic surgery; jb4 - Immunization history:: Adult Immunizations not up to date. - Social history:: Smoking status: Patient denies any tobacco usage or history of. Patient/guardian denies using alcohol, street drugs, Patient/guardian denies using alcohol. - Family history:: not pertinent. ROS: 23:24 Constitutional: Negative for fever, chills, and weight loss. ma2 23:24 All other systems are negative. Exam: 23:24 Constitutional: This is a well developed, well nourished patient who is awake, alert, ma2 and in no acute distress. ENT: Nares patent. No nasal discharge, no septal abnormalities noted. Tympanic membranes are normal and external auditory canals are clear. Oropharynx with no redness, swelling, or masses, exudates, or evidence of obstruction, uvula midline. Mucous membranes moist. Neck: Trachea midline, no thyromegaly or masses palpated, and no cervical lymphadenopathy. Supple, full range of motion without nuchal rigidity, or vertebral point tenderness. No Meningismus. Chest/axilla: Normal chest wall appearance and motion. Nontender with no deformity. No lesions are appreciated. Cardiovascular: hypotensive to 89/50, otherwise Regular rate and rhythm with a normal S1 and S2. No gallops, murmurs, or rubs. Normal PMI, no JVD. No pulse deficits. Respiratory: Lungs have equal breath sounds bilaterally, clear to auscultation and percussion. No rales, rhonchi or wheezes noted. No increased work of breathing, no retractions or nasal flaring. Abdomen/GI: Soft, non-tender, with normal bowel sounds. No distension or tympany. No guarding or rebound. No evidence of tenderness throughout. MS/ Extremity: Pulses equal, no cyanosis. Neurovascular intact. Full, normal range of motion. Neuro: Awake and alert, GCS 15, oriented to person, place, time, and situation. Cranial nerves II-XII grossly intact. Motor strength 5/5 in all extremities. Sensory grossly intact. Cerebellar exam normal. Normal gait. Vital Signs: 22:53 BP 89 / 51; Pulse 79; Resp 24; Temp 99.5(O); Pulse Ox 98% on R/A; Weight 129.27 kg; jb4 Height 6 ft. 8 in. (203.20 cm); Pain 6/10; 23:30 BP 97 / 65; Pulse 73; Resp 19; Pulse Ox 100% on R/A; jb4 01/12 00:45 BP 104 / 73; Pulse 75; Resp 16; Pulse Ox 99% on R/A; jb4 01:30 BP 102 / 61; Pulse 72; Resp 16; Pulse Ox 95% on R/A; jb4 01/11 22:53 Body Mass Index 31.31 (129.27 kg, 203.20 cm) [facility] MDM: 01/11 23:24 Differential diagnosis: Nonspecific abd pain, gastritis, viral gastroenteritis, ma2 gastroenteritis, hypotensive d/t covid 19. 01/12 00:16 Data reviewed: vital signs, nurses notes. Counseling: I had a detailed discussion with maGeraldo the patient and/or guardian regarding: the historical points, exam findings, and any diagnostic results supporting the discharge/admit diagnosis, the presence of at least one elevated blood pressure reading (>120/80) during this emergency department visit, the need for further work-up and treatment in the hospital. Response to treatment: the patient's symptoms have markedly improved after treatment. 00:18 Patient medically screened. [facility] 01/11 22:24 Order name: Basic Metabolic Panel [facility] 01/11 22:24 Order name: CBC with Diff [facility] 01/11 22:24 Order name: LFT's [facility] 01/11 22:24 Order name: Magnesium [facility] 01/11 22:24 Order name: NT PRO-BNP [facility] 01/11 22:24 Order name: PT-INR; Complete Time: 00:14 [facility] 01/11 22:24 Order name: Troponin (emerg Dept Use Only) [facility] 01/11 22:24 Order name: Basic Metabolic Panel; Complete Time: 00:14 [facility] 01/11 22:24 Order name: CBC with Automated Diff; Complete Time: 00:14 [facility] 01/11 22:24 Order name: Liver (Hepatic) Function; Complete Time: 00:14 [facility] 01/11 22:25 Order name: Magnesium; Complete Time: 00:14 [facility] 01/11 22:25 Order name: NT PRO-BNP; Complete Time: 00:14 [facility] 01/11 22:25 Order name: Troponin (Emerg Dept Use Only); Complete Time: 00:14 [facility] 01/11 23:03 Order name: Lactate; Complete Time: 00:14 [facility] 01/11 22:24 Order name: XRAY Chest (1 view) [facility] 01/11 23:03 Order name: Blood Culture Adult (2) [facility] 01/12 01:19 Order name: D-Dimer; Complete Time: 01:52 5 01/12 01:34 Order name: CT Chest For PE [facility] 01/12 05:57 Order name: Procalcitonin [facility] 01/12 06:00 Order name: Hemoglobin A1c [facility] 01/12 06:52 Order name: Comprehensive Metabolic Panel [facility] 01/12 06:52 Order name: C-Reactive Protein [facility] 01/12 06:52 Order name: Transferrin Sat/Iron Binding [facility] 01/12 06:52 Order name: Ferritin [facility] 01/12 07:06 Order name: Urinalysis [facility] 01/12 08:06 Order name: Glucose, Ancillary Testing [facility] 01/11 22:24 Order name: EKG; Complete Time: : hi2 01/11 22:24 Order name: Cardiac monitoring; Complete Time: : [facility] 01/11 22:24 Order name: EKG - Nurse/Tech; Complete Time: : hi2 01/11 22:24 Order name: IV Saline Lock; Complete Time: : hi2 01/11 22:24 Order name: Labs collected and sent; Complete Time: : hi2 01/11 22:24 Order name: O2 Per Protocol; Complete Time: : hi2 01/11 22:24 Order name: O2 Sat Monitoring; Complete Time: : ma2 Administered Medications: 01/11 23:15 Drug: NS 0.9% 1000 ml Route: IV; Rate: 1 bolus; Site: left hand; 4 01/12 00:15 Follow up: Response: No adverse reaction; IV Status: Completed infusion; IV Intake: jb4 1000ml 01/11 23:51 Drug: MethylPrednisoLONE 125 mg Route: IVP; Site: left hand; jb4 01/12 00:57 Follow up: Response: No adverse reaction 4 01/11 23:52 Drug: AZITHromycin 500 mg Route: IVPB; Infused Over: 1 hrs; Site: left wrist; jb4 01/12 00:52 Follow up: Response: No adverse reaction; IV Status: Completed infusion; IV Intake: jb4 250ml 00:43 Drug: NS 0.9% 1000 ml Route: IV; Rate: 125 ml/hr; Site: left hand; jb4 04:00 Follow up: Response: No adverse reaction; IV Status: Infusion continued upon admission jb4 00:43 Drug: Zofran (Ondansetron) 4 mg Route: IVP; Site: left hand; jb4 01:15 Follow up: Response: No adverse reaction; Marked relief of symptoms; Nausea is decreasedjb4 00:46 Drug: morphine 4 mg Route: IVP; Site: left hand; jb4 01:15 Follow up: Response: No adverse reaction; Marked relief of symptoms; Pain is decreased jb4 Disposition: 01/12/21 00:18 Hospitalization ordered by Akbar Marquez for Inpatient Admission. Preliminary diagnosis are Coronavirus infection, unspecified, Severe sepsis without septic shock. - Bed requested for Intensive Care Unit. - Status is Inpatient Admission. ss - Condition is Stable. - Problem is new. - Symptoms are unchanged. Signatures: Dispatcher [employer] EDNY Chichi Melchor RN RN Nuria Mott RN RN ss Bryson, James, RN RN jb4 Regina Joy MD MD [facility] Jerry Newman PA PA ej Corrections: (The following items were deleted from the chart) 00:18 00:18 Hospitalization Ordered by Grant Cornell DO for Observation. Preliminary [facility] diagnosis is Coronavirus infection, unspecified; Severe sepsis without septic shock. Bed requested for Telemetry/MedSurg (Inpatient). Status is Observation. Condition is Stable. Problem is new. Symptoms are unchanged. [facility] 00:25 00:18 01/12/2021 00:18 Hospitalization Ordered by Grant Cornell DO for Inpatient ma2 Admission. Preliminary diagnosis is Coronavirus infection, unspecified; Severe sepsis without septic shock. Bed requested for Telemetry/MedSurg (Inpatient). Status is Inpatient Admission. Condition is Stable. Problem is new. Symptoms are unchanged. [facility] 01:35 00:25 01/12/2021 00:18 Hospitalization Ordered by Akbar Marquez for Inpatient dw Admission. Preliminary diagnosis is Coronavirus infection, unspecified; Severe sepsis without septic shock. Bed requested for Telemetry/MedSurg (Inpatient). Status is Inpatient Admission. Condition is Stable. Problem is new. Symptoms are unchanged. [facility] 06:39 01:35 01/12/2021 00:18 Hospitalization Ordered by Akbar Marquez for Inpatient dw Admission. Preliminary diagnosis is Coronavirus infection, unspecified; Severe sepsis without septic shock. Bed requested for [facility] ER HOLD. Status is Inpatient Admission. Condition is Stable. Problem is new. Symptoms are unchanged. 08:45 06:39 01/12/2021 00:18 Hospitalization Ordered by Akbar Marquez for Inpatient ss Admission. Preliminary diagnosis is Coronavirus infection, unspecified; Severe sepsis without septic shock. Bed requested for Intensive Care Unit. Status is Inpatient Admission. Condition is Stable. Problem is new. Symptoms are unchanged. 09:26 08:45 01/12/2021 00:18 Hospitalization Ordered by Akbar Marquez for Inpatient ss Admission. Preliminary diagnosis is Coronavirus infection, unspecified; Severe sepsis without septic shock. Bed requested for Intensive Care Unit. Status is Inpatient Admission. Condition is Stable. Problem is new. Symptoms are unchanged. ss
--- NOTE | 2021-01-12 00:19 | ER ---
Nurse's Notes [facility] Name: Rica Ribeiro Jr Age: 60 yrs Sex: Male : 1960 Arrival Date: 01/11/2021 Time: 22:19 Bed 14 Private MD: Diagnosis: Coronavirus infection, unspecified;Severe sepsis without septic shock Presentation: 01/11 22:53 Chief complaint: Patient states: I tested positive for Covid 19 3-4 days ago. My jb4 symptoms have just been getting worse and tonight I just cant stop sweating and shaking and I am having chest pain and throat pain. Coronavirus screen: Client reports previous positive COVID test result. Date of collection: January 07, 2021. Ebola Screen: No symptoms or risks identified at this time. Initial Sepsis Screen: Does the patient meet any 2 criteria? RR > 20 per min. Systolic BP < 90 mmHg. Mean Arterial Pressure (MAP) < 65. Does the patient have a suspected source of infection? Yes: Productive cough/pneumonia If YES to both, name of provider notified: Regina Joy MD Risk Assessment: Do you want to hurt yourself or someone else? Patient reports no desire to harm self or others. Onset of symptoms was January 06, 2021. Transition of care: patient was not received from another setting of care. 22:53 Method Of Arrival: Wheelchair jb4 22:53 Acuity: ALTAF 3 jb4 Historical: - Allergies: 23:20 NKA; jb4 - Home Meds: 23:20 gabapentin 800 mg Oral tab 1 tab 3 times per day [Active]; hydrocodone-acetaminophen jb4 10-325 mg Oral tab 1 tab every 6 hours [Active]; meloxicam Oral [Active]; methocarbamol 500 mg Oral tab [Active]; sulfamethoxazole-trimethoprim 800-160 mg Oral tab [Active]; - PMHx: 23:20 Diabetes - NIDDM; Hyperlipidemia; neuropathy; staph infection; blood clots DVT; jb4 - PSHx: 23:20 Knee surgery; back surgery; thoracic surgery; jb4 - Immunization history:: Adult Immunizations not up to date. - Social history:: Smoking status: Patient denies any tobacco usage or history of. Patient/guardian denies using alcohol, street drugs, Patient/guardian denies using alcohol. - Family history:: not pertinent. Screenin:00 Abuse screen: Denies threats or abuse. Nutritional screening: No deficits noted. jb4 Tuberculosis screening: No symptoms or risk factors identified. Fall Risk None identified. Assessment: 23:00 General: Appears in no apparent distress. uncomfortable, ill, Behavior is calm, jb4 cooperative. Pain: Complains of pain in chest and neck Pain does not radiate. Pain currently is 6 out of 10 on a pain scale. Quality of pain is described as aching. Neuro: Level of Consciousness is awake, alert, obeys commands, Oriented to person, place, time, situation. Cardiovascular: Diaphoretic, warm. Respiratory: Airway is patent Respiratory effort is even, labored, Respiratory pattern is symmetrical, tachypnea. GI: Abdomen is round non-distended, Reports nausea. : No signs and/or symptoms were reported regarding the genitourinary system. EENT: No signs and/or symptoms were reported regarding the EENT system. Derm: Skin is intact, Skin is diaphoretic, Skin is normal, Skin temperature is warm. Musculoskeletal: Circulation, motion, and sensation intact. Range of motion: intact in all extremities. 01/12 00:00 Reassessment: Patient appears in no apparent distress at this time. Patient and/or jb4 family updated on plan of care and expected duration. Pain level reassessed. Patient is alert, oriented x 3, equal unlabored respirations, skin warm/dry/pink. 00:55 Reassessment: Patient appears in no apparent distress at this time. Patient and/or jb4 family updated on plan of care and expected duration. Pain level reassessed. Patient is alert, oriented x 3, equal unlabored respirations, skin warm/dry/pink. hospitalist at the bedside. 01:34 Reassessment: D dimer 2433 blade from laboratory called. hospitalist informed with rr5 order made and carried out. Vital Signs: 01/11 22:53 BP 89 / 51; Pulse 79; Resp 24; Temp 99.5(O); Pulse Ox 98% on R/A; Weight 129.27 kg; jb4 Height 6 ft. 8 in. (203.20 cm); Pain 6/10; 23:30 BP 97 / 65; Pulse 73; Resp 19; Pulse Ox 100% on R/A; jb4 01/12 00:45 BP 104 / 73; Pulse 75; Resp 16; Pulse Ox 99% on R/A; jb4 01:30 BP 102 / 61; Pulse 72; Resp 16; Pulse Ox 95% on R/A; jb4 01/11 22:53 Body Mass Index 31.31 (129.27 kg, 203.20 cm) jb4 ED Course: 01/11 22:19 Patient arrived in ED. am4 22:23 Regina Joy MD is Attending Physician. ma2 22:53 Micah Mccall, RN is Primary Nurse. jb4 22:53 Arm band placed on right wrist. jb4 22:58 Triage completed. jb4 23:00 Patient has correct armband on for positive identification. Placed in gown. Bed in low jb4 position. Call light in reach. Side rails up X 1. school lunch monitor on. Pulse ox on. NIBP on. 23:03 XRAY Chest (1 view) In Process Unspecified. EDMS 23:15 EKG done, by ED staff, reviewed by Regina Joy MD. Inserted saline lock: 18 gauge ds4 in left wrist, using aseptic technique. Blood collected. 01/12 00:10 Blood Culture Adult (2) Sent. ds4 00:18 Grant Cornell DO is Hospitalizing Provider. ma2 00:25 Hospitalizing Provider role handed off by Grant Cornell DO ma2 00:25 Akbar Marquez is Hospitalizing Provider. ma2 01:36 No provider procedures requiring assistance completed. Patient admitted, IV remains in jb4 place. Administered Medications: 01/11 23:15 Drug: NS 0.9% 1000 ml Route: IV; Rate: 1 bolus; Site: left hand; 4 01/12 00:15 Follow up: Response: No adverse reaction; IV Status: Completed infusion; IV Intake: jb4 1000ml 01/11 23:51 Drug: MethylPrednisoLONE 125 mg Route: IVP; Site: left hand; 4 01/12 00:57 Follow up: Response: [facility] 01/11 23:52 Drug: AZITHromycin 500 mg Route: IVPB; Infused Over: 1 hrs; Site: left wrist; 4 01/12 00:52 Follow up: Response: No adverse reaction; IV Status: Completed infusion; IV Intake: jb4 250ml 00:43 Drug: NS 0.9% 1000 ml Route: IV; Rate: 125 ml/hr; Site: left hand; jb4 04:00 Follow up: Response: No adverse reaction; IV Status: Infusion continued upon admission jb4 00:43 Drug: Zofran (Ondansetron) 4 mg Route: IVP; Site: left hand; jb4 01:15 Follow up: Response: No adverse reaction; Marked relief of symptoms; Nausea is decreasedjb4 00:46 Drug: morphine 4 mg Route: IVP; Site: left hand; jb4 01:15 Follow up: Response: No adverse reaction; Marked relief of symptoms; Pain is decreased jb4 Intake: 00:15 IV: 1000ml; Total: 1000ml. jb4 00:52 IV: 250ml; Total: 1250ml. jb4 Outcome: 00:18 Decision to Hospitalize by Provider. ma2 01:36 Admitted to ER Hold. Please see [facility] for further documentation. jb4 01:36 Condition: stable 01:36 Discharge instructions given to patient, Instructed on the need for admit, Demonstrated understanding of instructions. 09:26 Patient left the ED. ss Signatures: Dispatcher [employer] EDNuria Storm RN RN ss Josué Hernadez ds4 Micah Mcclal RN RN jb4 Regina Joy MD MD ma2 Jefferson Spencer RN RN rr5 Pushpa Brambila
[2021-01-12] MEDS ORDERED: ONDANSETRON 4 MG/2 ML VIAL ONE (00:48)
[2021-01-12] MEDS ORDERED: MORPHINE 4 MG/ML SYR ONE (00:54)
[2021-01-12 02:56] VITALS: BMI 31.3
--- NOTE | 2021-01-12 03:11 | P.HP ---
Certification for Inpatient Patient admitted to: Inpatient With expected LOS: >2 Midnights Patient will require the following post-hospital care: None Practitioner: I am a practitioner with admitting privileges, knowledge of patient current condition, hospital course, and medical plan of care. Services: Services provided to patient in accordance with Admission requirements found in Title 42 Section 412.3 of the Code of Federal Regulations <Jerry Newman - Last Filed: 01/12/21 04:06> Patient History Date of Service: 01/12/21 Primary Care Provider: Dr. Hull Reason for admission: hypotension, COVID+ History of Present Illness: Mr. Ribeiro is a 60 yo male with HTN, HLD, DM, h/o DVT x2 on Xarelto here today after COVID+ diagnosis Friday (01/08) now with hypotension, chills, cough. He was hypotensive to 89/51 now improved too 100/65 after 3L of fluid, sats 100% on room air. He reports 3 days of worsening nausea, vomiting, abdominal pain, cough, night sweats, chills, blurry vision, weakness, malaise, constipation and dizziness with standing. He feels worse with walking, improved with lying down, tylenol, and has been taking zinc at home. He denies palpitations, SOB, diarrhea, hemoptysis, edema. CTPE consistent with viral pneumonia, no evidence of PE. H/h 11.4/36.2, MCV 79.8. Ddimer 2433. GFR 69. Glu 113. Home medications list reviewed: No - Past Medical/Surgical History Diabetic: Yes -: chronic pain syndrome -: neuropathy -: staph infection May 2017 -: HTN -: HLD -: DM -: h/o DVT x2 on Xarelto -: L knee replacement surgery February 2017 -: I & D September 2018 -: back surgery - Family History Mother -: Other (see notes) Notes: evelyne's dse Father -: Other (see notes) Notes: aneurysm - Social History Smoking Status: Former smoker Alcohol use: No CD- Drugs: No Caffeine use: No Place of Residence: Home <Jerry Newman - Last Filed: 01/12/21 04:06> Date of Service: 01/12/21 <guillermina jarvis - Last Filed: 01/12/21 11:33> Allergies No Known Drug Allergies Allergy (Verified 10/15/18 10:02) Unknown N Allergy (Uncoded 06/15/17 23:59) Unknown No Known Allergy (Uncoded 06/12/17 09:10) Unknown No Known Allerg Allergy (Uncoded 02/06/17 01:49) Unknown Home Medications: Hydrocodone/Acetaminophen [Hydrocodone-Acetamin 10-325 mg] 1 tab PO QID 10/15/18 Diazepam [Valium] 5 mg PO DAILY PRN 01/12/21 Etodolac [Lodine Xl] 500 mg PO BID 01/12/21 Pregabalin 200 mg PO TID 01/12/21 Rivaroxaban [Xarelto] 10 mg PO DAILY 01/12/21 Tizanidine [Zanaflex*] 4 mg PO DAILY 01/12/21 Tizanidine [Zanaflex] 8 mg PO BEDTIME 01/12/21 Trazodone HCl 100 mg PO BEDTIME 01/12/21 Review of Systems General: Fever, Chills, Sweats, Weakness, Malaise, As per HPI Eyes: Vision Change, As per HPI ENT: Unremarkable Respiratory: Cough, Pleuritic Pain, As per HPI Cardiovascular: Light Headedness, As per HPI Gastrointestinal: Nausea, Vomiting, Abdominal Pain, Constipation, As per HPI Genitourinary: Unremarkable Musculoskeletal: Unremarkable Integumentary: Unremarkable Neurological: Unremarkable Lymphatics: Unremarkable <TrentJerry - Last Filed: 01/12/21 04:06> Physical Examination - Vital Signs Temperature: 99.5 F Blood Pressure: 89/57 Pulse: 79 Respirations: 24 Pulse Ox (%): 98 - Physical Exam General: Alert, In no apparent distress, Oriented x3, Cooperative HEENT: Atraumatic, Normocephalic, PERRLA, Mucous membr. moist/pink, EOMI, Sclerae nonicteric Neck: Supple, 2+ carotid pulse no bruit, JVD not distended, No Thyromegaly, No LAD Respiratory: Diminished, Dull, Rhonchi/gurgles Cardiovascular: No edema, Normal pulses, Regular rate/rhythm, Normal S1 S2, No gallops, No rubs, No murmurs Capillary refill: <2 Seconds Gastrointestinal: Normal bowel sounds, Soft and benign, Non-distended, No ascites, No masses, No rebound, No guarding, Tenderness Musculoskeletal: No clubbing, No swelling, No contractures, No erythema, No tenderness, No warmth Integumentary: No rashes, No breakdown, No significant lesion, No tenderness/swelling, No erythema, No warmth, No cyanosis Neurological: Normal speech, Normal strength at 5/5 x4 extr, Normal tone, Sensat ion intact, Cranial nerves 3-12 intact, Normal affect Lymphatics: No axilla or inguinal lymphadenopathy - Studies Laboratory Data (last 24 hrs) 01/11/21 23:08: PT 24.8 H, INR 2.14 01/11/21 23:08: WBC 3.40 L, Hgb 11.4 L, Hct 36.2 L, Plt Count 171 01/11/21 23:08: Sodium 138, Potassium 4.3, BUN 16, Creatinine 1.28, Glucose 113 H, Magnesium 2.3, Total Bilirubin 0.3, AST 29, ALT 19, Alkaline Phosphatase 82 <Jerry Newman - Last Filed: 01/12/21 04:06> - Studies Laboratory Data (last 24 hrs) 01/11/21 23:08: PT 24.8 H, INR 2.14 01/11/21 23:08: WBC 3.40 L, Hgb 11.4 L, Hct 36.2 L, Plt Count 171 01/11/21 23:08: Sodium 138, Potassium 4.3, BUN 16, Creatinine 1.28, Glucose 113 H, Magnesium 2.3, Total Bilirubin 0.3, AST 29, ALT 19, Alkaline Phosphatase 82 <guillermina jarvis - Last Filed: 01/12/21 11:33> Assessment and Plan - Problems (Diagnosis) (1) History of DVT (deep vein thrombosis) Current Visit: Yes Status: Chronic Plan: h/o of DVT in the past, on Xarelto, will continue home dose. D dimer of 2433. CT ruled out PE. (2) Hyperlipidemia Current Visit: Yes Status: Chronic Plan: not currently on any medication. lipid panel pending. Qualifiers: Hyperlipidemia type: unspecified Qualified Code(s): E78.5 - Hyperlipidemia, unspecified (3) Diabetes mellitus Current Visit: Yes Status: Chronic Plan: says he has not taken metformin for years. will check A1c. accuchecks. 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 PRN bolus ordered, and maintenance fluids. will continue to monitor closely. with previous diagnosis of HTN, also not on any medications, BP was also wnl at last admission. Qualifiers: Hypotension type: unspecified hypotension type Qualified Code(s): I95.9 - Hypotension, unspecified (5) COVID-19 Current Visit: Yes Status: Acute Plan: sats are stable on room air. covid supplements, DVT ppx, O2 to sats >93%, and continuous O2. received IV steroids in the ER. CRP, ferritin, procal pending. will continue to monitor. CT showed viral pneumonia. (6) Anemia Current Visit: Yes Status: Acute Plan: iron panel pending. H/H 11.4/36.2, MCV 79.8. Qualifiers: Anemia type: unspecified type Qualified Code(s): D64.9 - Anemia, unspecified (7) Chronic pain syndrome Onset Date: 10/16/18 Current Visit: No Status: Chronic Plan: will reconcile and continue home medications Discharge Plan: Home Plan to discharge in: 72 Hours - Advance Directives Does patient have a Living Will: No Does patient have a Durable POA for Healthcare: No - Code Status/Comfort Care Code Status Assessed: Yes (full code) Critical Care: No Time Spent Managing Pts Care (In Minutes): 70 <Jerry Newman - Last Filed: 01/12/21 04:06> Physician Review: Patient Assessed, Agree with Above Assessment and Plan Physician Review Additional Text: Hypotension COVID Pneumonia. Plan: Start IV steroid IV hydration. Monitor blood pressure. <guillermina jarvis - Last Filed: 01/12/21 11:33>
[2021-01-12] MEDS ORDERED: MELATONIN 5 MG TABLET PO PRN (03:15)
[2021-01-12] MEDS: NA CHLORIDE 0.9% 1,000 ML IV SCH ×3 (03:15→23:44)
[2021-01-12] MEDS ORDERED: NA CHLORIDE 0.9% 500 ML IV ONE (03:15)
[2021-01-12] MEDS ORDERED: MORPHINE 2 MG/ML SYR IV PRN (03:15)
[2021-01-12] MEDS ORDERED: ONDANSETRON 4 MG/2 ML VIAL IV PRN (03:15)
[2021-01-12] MEDS ORDERED: ACETAMINOPHEN 500 MG TAB PO PRN (03:15)
[2021-01-12] MEDS ORDERED: NA CHLORIDE 0.9% 500 ML IV PRN ×2 (04:31→04:35)
--- NOTE | 2021-01-12 06:44 | EKG ---
Test Date: 2021-01-11 Test Time: 23:35:00 Portrait Studio Photographer: NEETU MEASUREMENT RESULTS: Intervals: Rate: 70 HI: 166 QRSD: 92 QT: 378 QTc: 408 [place]: P: 61 HI: 166 QRS: -28 T: 56 INTERPRETIVE STATEMENTS: Normal sinus rhythm Normal ECG Compared to ECG 10/15/2018 04:40:37 Sinus bradycardia no longer present Left-axis deviation no longer present Electronically Signed On 01-12-21 06:43:49 CDT by Miguelito Flores
[2021-01-12 06:49] LABS: Albumin 3.1 g/dL (3.4-5.0); Bilirubin Total 0.3 mg/dL (0.2-1.0); C-Reactive Protein 61.2 mg/L (<3.00); Potassium 5.3 mmol/L (3.5-5.1)
[2021-01-12 06:52] LABS: Urine Appearance CLEAR; Urine Bilirubin NEGATIVE (NEG); Urine Blood NEGATIVE (Negative); Urine Color YELLOW; Urine Glucose NEGATIVE (Negative); Urine Protein NEGATIVE (NEG); Urine Specific Gravity 1.015 (1.005-1.030); Urine Urobilinogen 0.2 mg/dL (0.2-1.0)
[2021-01-12 07:06] LABS: Urine Microscopic Reflex NO UMIC
[2021-01-12] MEDS: INSULIN -REGULAR HUMAN 50 UNIT/0.5 ML ML SQ SCH ×4 (07:30→21:19)
[2021-01-12] MEDS ORDERED: INSULIN -REGULAR HUMAN 50 UNIT/0.5 ML ML ONE (08:16)
--- NOTE | 2021-01-12 08:58 | RAD REPORT ---
EXAM DESCRIPTION: RAD - Chest Single View - 01/11/2021 11:03 pm CLINICAL HISTORY: CONGESTION Chest pain. COMPARISON: Chest Single View dated 10/15/2018; Chest Pa And Lat (2 Views) dated 02/06/2017; Chest Pa And Lat (2 Views) dated 01/02/2017; CHEST PA AND LAT 2 VIEW dated 02/17/2012 FINDINGS: Portable technique limits examination quality. Bilateral pulmonary opacities are noted, greater on the right. This is likely related to underlying v iral infection. The heart is normal in size. No displaced fractures.
[2021-01-12] MEDS: FAMOTIDINE 20 MG TAB PO SCH ×2 (10:19→21:18)
[2021-01-12] MEDS: THIAMINE HCL 100 MG TABLET PO SCH (10:19)
[2021-01-12] MEDS: ASCORBIC ACID 500 MG TABLET PO SCH ×4 (10:19→21:18)
[2021-01-12] MEDS: ZINC SULFATE 220 MG CAP PO SCH (10:19)
[2021-01-12] MEDS: VITAMIN D 1000 UNIT TAB PO SCH (10:20)
[2021-01-12] MEDS ORDERED: DIAZEPAM 5 MG TABLET PO PRN (11:15)
--- NOTE | 2021-01-12 11:35 | P.PN ---
Date of Service: 01/12/21 Patient seen and examined. He is complaining of excessive sweating. Blood pressure has improved with systolic up to 120. Patient is saturating well on room air. Diagnosis: COVID Pneumonia Hypotension Chronic pain syndrome. Plan: IV steroid Vitamin supplementation Resume home medications Monitor blood pressure for the next 24 hrs. D/c tomorrow. Blood pressure remained stable. Discussed with Dr. Andrew.
[2021-01-12] MEDS: HYDROCODONE/APAP 10/325 TAB PO PRN ×2 (11:47→16:59)
[2021-01-12] MEDS: PREGABALIN 50 MG CAP PO SCH ×3 (12:05→21:19)
[2021-01-12] MEDS: PREGABALIN 150 MG CAP PO SCH ×3 (12:05→21:19)
[2021-01-12] MEDS: ETODOLAC 500 MG PO SCH ×2 (12:17→21:25)
[2021-01-12] MEDS: TIZANIDINE 4 MG TABLET PO SCH ×2 (12:18→21:19)
[2021-01-12] MEDS ORDERED: PREGABALIN 200 MG PO SCH (14:00)
[2021-01-12] MEDS ORDERED: RIVAROXABAN 10 MG TABLET PO SCH (17:00)
[2021-01-12] MEDS: TRAZODONE 50 MG TABLET PO SCH (21:18)
--- NOTE | 2021-01-12 21:40 | RAD REPORT ---
EXAM DESCRIPTION: CT Angiography Chest With Intravenous Contrast CLINICAL HISTORY: The patient is 60 years old and is Male; elevated d dimer TECHNIQUE: Axial computed tomographic angiography images of the chest with intravenous contrast. S agittal and coronal reformatted images were created and reviewed. This CT exam was performed using one or more of the following dose reduction techniques: automated exposure control, adjustment of t he mA and/or kV according to patient size, and/or use of iterative reconstruction technique. MIP reconstructed images were created and reviewed. COMPARISON: No relevant prior studies available. FINDINGS: ARTIFACTS: The exam is suboptimal secondary to motion artifact. PULMONARY ARTERIES: There are no obvious filling defects identified within the pulmonary arteries to suggest pulmonary embolism. AORTA: No acute findings. No thoracic aortic aneurysm. LUNGS: Patchy groundglass opacities are noted peripherally within the lungs. PLEURAL SPACE: Trace pleural effusions are present. No pneumothorax. HEART: Unremarkable. No cardiomegaly. No significant pericardial effusion. No evidence of R V dysfunction. MEDIASTINUM: The tracheobronchial tree is widely patent. BONES/JOINTS: No acute fracture. No dislocation. SOFT TISSUES: Unremarkable. LYMPH NODES: Unremarkable. No enlarged lymph nodes. IMPRESSION: 1. Imaging features can be seen with viral pneumonia, though are nonspecific and can o ccur with a variety of infectious and noninfectious processes. PneInd 2. No evidence of pulmonary embolism. Electronically signed by: Tracy Hess MD 01/12/2021 2:33 AM CDT Due to temporary technical issues with the PACS/Fluency reporting system, reports are being signed by the in house radiologists without review as a courtesy to insure prompt reporting. The interpreting radiologist is fully responsible for the content of the report.
[2021-01-13] MEDS: HYDROCODONE/APAP 10/325 TAB PO PRN ×3 (04:17→18:26)
[2021-01-13 06:49] LABS: Absolute Lymphocytes (CBC) 0.6 K/uL (0.7-4.9); Basophils % 0.1 % (0-1.3); Hematocrit 36.9 % (39.6-49.0); Lymphocytes % 12.3 % (15.3-44.8); MPV 8.9 fL (7.6-11.3); RBC Red Blood Cell Count 4.59 M/uL (4.33-5.43)
[2021-01-13 07:02] LABS: ALT/SGPT 17 U/L (12-78); AST/SGOT 23 U/L (15-37); Alkaline Phosphatase 74 U/L (45-117); BUN Blood Urea Nitrogen 16 mg/dL (7-18); Bicarbonate 29 mmol/L (21-32); Bilirubin Total 0.3 mg/dL (0.2-1.0); Glucose Level 177 mg/dL (74-106); HDL Cholesterol 31 mg/dL (40-60); LDL Cholesterol, Calculated 80 (<130); Magnesium 2.8 mg/dL (1.8-2.4); Sodium Level 143 mmol/L (136-145)
[2021-01-13 07:04] LABS: Potassium 6.1 mmol/L (3.5-5.1)
[2021-01-13] MEDS: INSULIN -REGULAR HUMAN 50 UNIT/0.5 ML ML SQ SCH ×4 (07:30→20:58)
[2021-01-13] MEDS: PREGABALIN 150 MG CAP PO SCH ×3 (08:01→20:56)
[2021-01-13] MEDS: PREGABALIN 50 MG CAP PO SCH ×3 (08:01→20:57)
[2021-01-13] MEDS: ETODOLAC 500 MG PO SCH ×2 (08:01→20:56)
[2021-01-13] MEDS: ASCORBIC ACID 500 MG TABLET PO SCH ×4 (08:02→20:56)
[2021-01-13] MEDS: FAMOTIDINE 20 MG TAB PO SCH ×2 (08:02→20:56)
[2021-01-13] MEDS: THIAMINE HCL 100 MG TABLET PO SCH (08:02)
[2021-01-13] MEDS: RIVAROXABAN 10 MG TABLET PO SCH (08:03)
[2021-01-13] MEDS: TIZANIDINE 4 MG TABLET PO SCH ×2 (08:03→20:57)
[2021-01-13] MEDS: VITAMIN D 1000 UNIT TAB PO SCH (08:03)
[2021-01-13] MEDS: ZINC SULFATE 220 MG CAP PO SCH (08:03)
[2021-01-13] MEDS: NA CHLORIDE 0.9% 1,000 ML IV SCH ×2 (09:15→20:57)
[2021-01-13] MEDS ORDERED: SOD POLYSTYREN SUL 15 GM/60 ML UCUP PO ONE (09:53)
--- NOTE | 2021-01-13 12:13 | P.PN ---
Subjective Date of Service: 01/13/21 Primary Care Provider: Dr. Hull Chief Complaint: hypotension, COVID+ Patient complaining of sweating. He denies any shortness of breath. He complains of generalized weakness. Physical Examination - Vital Signs Temperature: 96.8 F Blood Pressure: 104/62 Pulse: 47 Respirations: 20 Pulse Ox (%): 93 - Physical Exam General: Alert, In no apparent distress Neck: JVD not distended Respiratory: Other (Nonlabored breathing) Cardiovascular: No edema, Regular rate/rhythm Gastrointestinal: Soft and benign, Non-distended Musculoskeletal: No swelling Integumentary: No rashes Neurological: Normal strength at 5/5 x4 extr Assessment And Plan - Current Problems (Diagnosis) (1) Pneumonia due to COVID-19 virus Current Visit: Yes Status: Acute (2) Hypotension Current Visit: Yes Status: Acute Qualifiers: Hypotension type: unspecified hypotension type Qualified Code(s): I95.9 - Hypotension, unspecified (3) Diabetes mellitus Current Visit: Yes Status: Chronic Qualifiers: Diabetes mellitus type: type 2 Diabetes mellitus 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 Patient is not hypoxic. He has hyperkalemia and hypermagnesemia which could be related to hemolysis of blood sample. His potassium level was elevated high yesterday. Normal renal function. Patient should be well hydrated. Treat hyperkalemia with oral Kayexalate and repeat potassium levels. Will start prednisone. Physician Review: Patient Assessed, Agree with Above Assessment and Plan
[2021-01-13] MEDS: TRAZODONE 50 MG TABLET PO SCH (20:57)
[2021-01-13] MEDS: predniSONE 20 MG TAB PO SCH (20:57)
[2021-01-14] MEDS: NA CHLORIDE 0.9% 1,000 ML IV SCH ×2 (06:00→14:26)
[2021-01-14 06:49] LABS: BUN Blood Urea Nitrogen 16 mg/dL (7-18); Bicarbonate 29 mmol/L (21-32); Glucose Level 210 mg/dL (74-106); Potassium 5.3 mmol/L (3.5-5.1); Sodium Level 144 mmol/L (136-145)
[2021-01-14 06:57] LABS: Absolute Lymphocytes (CBC) 0.8 K/uL (0.7-4.9); Basophils % 0.2 % (0-1.3); Hematocrit 35.1 % (39.6-49.0); Lymphocytes % 8.9 % (15.3-44.8); MPV 8.6 fL (7.6-11.3); RBC Red Blood Cell Count 4.36 M/uL (4.33-5.43)
[2021-01-14] MEDS: INSULIN -REGULAR HUMAN 50 UNIT/0.5 ML ML SQ SCH ×4 (07:30→21:00)
[2021-01-14] MEDS: THIAMINE HCL 100 MG TABLET PO SCH (07:52)
[2021-01-14] MEDS: PREGABALIN 150 MG CAP PO SCH ×3 (07:53→21:32)
[2021-01-14] MEDS: predniSONE 20 MG TAB PO SCH (07:54)
[2021-01-14] MEDS: HYDROCODONE/APAP 10/325 TAB PO PRN ×2 (07:54→13:16)
[2021-01-14] MEDS: RIVAROXABAN 10 MG TABLET PO SCH (07:54)
[2021-01-14] MEDS: ASCORBIC ACID 500 MG TABLET PO SCH ×4 (07:54→21:31)
[2021-01-14] MEDS: VITAMIN D 1000 UNIT TAB PO SCH (07:54)
[2021-01-14] MEDS: ETODOLAC 500 MG PO SCH ×2 (07:55→21:38)
[2021-01-14] MEDS: TIZANIDINE 4 MG TABLET PO SCH ×2 (07:56→21:35)
[2021-01-14 07:59] LABS: Blood Morphology Comment NOT SEEN (NOT SEEN); Platelet Estimate ADEQ; White Blood Cell Scan OK (OK)
[2021-01-14] MEDS: ZINC SULFATE 220 MG CAP PO SCH (07:59)
[2021-01-14] MEDS: FAMOTIDINE 20 MG TAB PO SCH ×2 (08:00→21:31)
[2021-01-14] MEDS: PREGABALIN 50 MG CAP PO SCH ×3 (08:00→21:32)
--- NOTE | 2021-01-14 10:27 | RAD REPORT ---
EXAM DESCRIPTION: Venkat Single View01/14/2021 10:02 am CLINICAL HISTORY: Chest pain COMPARISON: January 12 FINDINGS: Mild worsening bilateral pulmonary opacities. Heart is borderline enlarged IMPRESSION: Mild worsening in the bilateral pulmonary opacities probably pneumonia
--- NOTE | 2021-01-14 10:48 | RAD REPORT ---
EXAM DESCRIPTION: CT - Abdomen Pelvis W Contrast - 01/14/2021 10:25 am CLINICAL HISTORY: Abdominal pain/hypercalcemia COMPARISON: none. TECHNIQUE: Computed axial tomography of the abdomen pelvis was obtained. 100 cc Isovue-300 was admin istered intravenously. Oral contrast was not requested which limits evaluation of bowel. All CT scans are performed using dose optimization technique as appropriate and may include automated exposure control or mA/KV adjustment according to patient size. FINDINGS: The liver, spleen, pancreas, adrenal and kidneys appear unremarkable. There is no evidence of diverticulitis. Postsurgical changes involve the spine. Mild to moderate ground-glass opacities within the lung bases IMPRESSION: Mild to moderate ground-glass opacities within the lungs likely pneumonia No acute abnormality involving the abdomen/pelvis is seen
--- NOTE | 2021-01-14 11:43 | P.PN ---
Subjective Date of Service: 01/14/21 Primary Care Provider: Dr. Hull Chief Complaint: hypotension, COVID+ Patient complaining of chills. Fever of 100.1 recorded today. Blood work shows hyperkalemia again. Patient is now requiring 3 L of oxygen with SaO2 around 91%. He is complaining of shortness of breath. Physical Examination - Vital Signs Temperature: 97.4 F Blood Pressure: 130/62 Pulse: 71 Respirations: 16 Pulse Ox (%): 92 - Physical Exam General: Alert, In no apparent distress Neck: Supple, JVD not distended Respiratory: Other (Nonlabored breathing) Cardiovascular: No edema, Regular rate/rhythm Gastrointestinal: Soft and benign, Non-distended Musculoskeletal: No swelling Integumentary: No rashes Neurological: Normal strength at 5/5 x4 extr Assessment And Plan - Current Problems (Diagnosis) (1) Pneumonia due to COVID-19 virus Current Visit: Yes Status: Acute (2) Hypotension Current Visit: Yes Status: Acute Qualifiers: Hypotension type: unspecified hypotension type Qualified Code(s): I95.9 - Hypotension, unspecified (3) Diabetes mellitus Current Visit: Yes Status: Chronic Qualifiers: Diabetes mellitus type: type 2 Diabetes mellitus 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 He is now requiring oxygen and complained of shortness of breath. Chest x-ray shows worsening bilateral infiltrates. Pneumonia not ruled out. Hyperkalemia persist. CT abdomen and pelvis done did not show any obstructive uropathy. Cause of recurrent hyperkalemia is unclear. Nephrology consult. Kayexalate p.r.n. for hyperkalemia Start IV steroid. Vitamin supplementation Zinc supplementation. Pharmacy to evaluate for Remdesivir therapy.
[2021-01-14] MEDS ORDERED: Remdesivir 200 MG in NA CHLORIDE 0.9% 250 ML IV ONE (13:30)
[2021-01-14] MEDS: METHYLPREDNISOLONE 125 MG INJ IV SCH (21:32)
[2021-01-14] MEDS: TRAZODONE 50 MG TABLET PO SCH (21:35)
[2021-01-15] MEDS: NA CHLORIDE 0.9% 1,000 ML IV SCH ×2 (04:27→13:47)
[2021-01-15 04:30] LABS: Absolute Lymphocytes (CBC) 0.6 K/uL (0.7-4.9); Basophils % 0.5 % (0-1.3); Hematocrit 33.6 % (39.6-49.0); Lymphocytes % 8.9 % (15.3-44.8); MPV 8.8 fL (7.6-11.3); RBC Red Blood Cell Count 4.19 M/uL (4.33-5.43)
[2021-01-15 04:53] LABS: ALT/SGPT 15 U/L (12-78); AST/SGOT 18 U/L (15-37); BUN Blood Urea Nitrogen 13 mg/dL (7-18); Bicarbonate 29 mmol/L (21-32); Glucose Level 204 mg/dL (74-106); Potassium 4.5 mmol/L (3.5-5.1); Sodium Level 142 mmol/L (136-145)
[2021-01-15] MEDS: INSULIN -REGULAR HUMAN 50 UNIT/0.5 ML ML SQ SCH ×4 (07:30→20:26)
[2021-01-15] MEDS: PREGABALIN 50 MG CAP PO SCH ×3 (08:20→20:28)
[2021-01-15] MEDS: TIZANIDINE 4 MG TABLET PO SCH ×3 (08:21→20:27)
[2021-01-15] MEDS: ASCORBIC ACID 500 MG TABLET PO SCH ×4 (08:21→20:27)
[2021-01-15] MEDS: THIAMINE HCL 100 MG TABLET PO SCH (08:21)
[2021-01-15] MEDS: RIVAROXABAN 10 MG TABLET PO SCH (08:21)
[2021-01-15] MEDS: ZINC SULFATE 220 MG CAP PO SCH (08:21)
[2021-01-15] MEDS: VITAMIN D 1000 UNIT TAB PO SCH (08:22)
[2021-01-15] MEDS: ETODOLAC 500 MG PO SCH ×3 (08:22→21:00)
[2021-01-15] MEDS: METHYLPREDNISOLONE 125 MG INJ IV SCH ×2 (08:22→20:30)
[2021-01-15] MEDS: FAMOTIDINE 20 MG TAB PO SCH ×2 (08:22→20:27)
[2021-01-15] MEDS: PREGABALIN 150 MG CAP PO SCH ×3 (08:22→20:28)
[2021-01-15] MEDS: HYDROCODONE/APAP 10/325 TAB PO PRN ×2 (08:33→13:46)
[2021-01-15] MEDS: BENZONATATE 100 MG CAP PO PRN (08:34)
[2021-01-15] MEDS ORDERED: Remdesivir 100 MG in NA CHLORIDE 0.9% 250 ML IV SCH (09:00)
--- NOTE | 2021-01-15 12:33 | P.PN ---
Subjective Date of Service: 01/15/21 Primary Care Provider: Dr. Hull Chief Complaint: hypotension, COVID+ Patient complaining of sweating. Potassium level is better today. Patient is tolerating 2 L of oxygen. He states he is overall better than yesterday. Physical Examination - Vital Signs Temperature: 97.6 F Blood Pressure: 147/80 Pulse: 52 Respirations: 17 Pulse Ox (%): 94 - Physical Exam General: Alert, In no apparent distress, Oriented x3 Neck: JVD not distended Respiratory: Other (Nonlabored breathing) Cardiovascular: No edema, Regular rate/rhythm Gastrointestinal: Soft and benign, Non-distended Musculoskeletal: No swelling Integumentary: No rashes Neurological: Normal strength at 5/5 x4 extr Assessment And Plan - Current Problems (Diagnosis) (1) Pneumonia due to COVID-19 virus Current Visit: Yes Status: Acute (2) Hypotension Current Visit: Yes Status: Acute Qualifiers: Hypotension type: unspecified hypotension type Qualified Code(s): I95.9 - Hypotension, unspecified (3) Diabetes mellitus Current Visit: Yes Status: Chronic Qualifiers: Diabetes mellitus type: type 2 Diabetes mellitus chcf insulin use: 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 Continue IV steroid. Vitamin supplementation Zinc supplementation. Dr. Andrew is following. He is started on Remdesivir Titrate oxygen. Patient is on Xarelto. Hyperkalemia resolved today. CT abdomen and pelvis done did not show any obstructive uropathy. Patient has normal renal function. Kayexalate p.r.n. for hyperkalemia Monitor CBC and blood chemistry.
[2021-01-15] MEDS: POLYETHYL GLY 3350 17 GM/DOSE PO SCH ×2 (13:46→20:30)
[2021-01-15] MEDS: TRAZODONE 50 MG TABLET PO SCH (20:35)
[2021-01-16] MEDS: NA CHLORIDE 0.9% 1,000 ML IV SCH (00:10)
[2021-01-16 04:10] LABS: Absolute Lymphocytes (CBC) 0.7 K/uL (0.7-4.9); Basophils % 0.4 % (0-1.3); Hematocrit 35.1 % (39.6-49.0); Lymphocytes % 11.8 % (15.3-44.8); MPV 9.1 fL (7.6-11.3); RBC Red Blood Cell Count 4.43 M/uL (4.33-5.43)
[2021-01-16 04:35] LABS: ALT/SGPT 16 U/L (12-78); AST/SGOT 15 U/L (15-37); BUN Blood Urea Nitrogen 16 mg/dL (7-18); Bicarbonate 26 mmol/L (21-32); Ferritin 182.9 ng/mL (26-388); Glucose Level 248 mg/dL (74-106); Magnesium 2.5 mg/dL (1.8-2.4); Potassium 4.4 mmol/L (3.5-5.1); Sodium Level 142 mmol/L (136-145)
[2021-01-16 05:41] LABS: Phosphorus 2.4 mg/dL (2.5-4.9)
[2021-01-16] MEDS: ETODOLAC 500 MG PO SCH ×2 (09:00→21:00)
--- NOTE | 2021-01-16 09:13 | P.PN ---
Subjective Date of Service: 01/16/21 Primary Care Provider: Dr. Hull Chief Complaint: hypotension, COVID+ Subjective: No new changes (feeling ok this morning, still with SOB/[place], on 2L NC. Ambulated ok yesterday in room. Denies dizzy/lightheaded. No palpitations. Reports has not been told he has slow HR in past. Denies chest pain.) Review of Systems 10-point ROS is otherwise unremarkable Physical Examination - Vital Signs Temperature: 97.2 F Blood Pressure: 128/70 Pulse: 42 Respirations: 22 Pulse Ox (%): 92 Assessment & Plan Physician Review Additional Text: Physical Exam General: Alert, In no apparent distress, Oriented x3 HEENT: PERRL, sclera anicteric, normal conjunctiva Pulm: b/l crackles at bases, nonlabored respirations on 2L NC CV: sinus braycardia ~48, no edema, no murmur Abd: soft, NTND Integumentary: No rashes Neurological: Normal strength at 5/5 x4 extr, normal affect Problem List: Acute hypoxic respiratory failure secondary to COVID-19 pneumoniavirus Sinus Bradycardia Labile blood pressure Diabetes mellitus type 2, non-insulin dependent Steroid induced hyperglycemia History of DVT (deep vein thrombosis) CXR yesterday with worsening b/l opacities. Patient still SOB/[place] Continue IV steroid, vitamin supplementation Wean O2 as tolerated Received Remdesevir on 01/14 Unclear reason for bradycardia, pt has not received any beta jeanmarie. Otherwise on home medications he has tolerated. Possible side-efffect from remdesevir, will hold for now will obtain EKG, echocardiogram Cardiology consulted continue home Xarelto CT abdomen and pelvis done did not show any obstructive uropathy. Patient has normal renal function. Kayexalate p.r.n. for hyperkalemia CRP improved VTE: Xarelto Code: full Dispo: anticipate dc home in ~24-48hrs, may need home O2. needs improvement of bradycardia Time Spent Managing Pts Care (In Minutes): 35
[2021-01-16] MEDS: INSULIN -REGULAR HUMAN 50 UNIT/0.5 ML ML SQ SCH ×4 (09:18→21:36)
[2021-01-16] MEDS: VITAMIN D 1000 UNIT TAB PO SCH (09:19)
[2021-01-16] MEDS: ASCORBIC ACID 500 MG TABLET PO SCH ×4 (09:19→21:34)
[2021-01-16] MEDS: THIAMINE HCL 100 MG TABLET PO SCH (09:19)
[2021-01-16] MEDS: FAMOTIDINE 20 MG TAB PO SCH ×2 (09:19→21:33)
[2021-01-16] MEDS: ZINC SULFATE 220 MG CAP PO SCH (09:19)
[2021-01-16] MEDS: RIVAROXABAN 10 MG TABLET PO SCH (09:19)
[2021-01-16] MEDS: PREGABALIN 150 MG CAP PO SCH ×3 (09:20→21:34)
[2021-01-16] MEDS: POTASS/SODIUM PHOSPHATE 1 PKT POWD.PACK PO SCH ×3 (09:20→11:52)
[2021-01-16] MEDS: PREGABALIN 50 MG CAP PO SCH ×3 (09:20→21:34)
[2021-01-16] MEDS: METHYLPREDNISOLONE 125 MG INJ IV SCH ×2 (09:22→21:33)
[2021-01-16] MEDS: HYDROCODONE/APAP 10/325 TAB PO PRN ×3 (09:28→22:10)
[2021-01-16] MEDS: POLYETHYL GLY 3350 17 GM/DOSE PO SCH ×3 (09:28→21:35)
[2021-01-16 09:55] LABS: Thyroid Stimulating Hormone 0.367 uIU/mL (0.360-3.740)
[2021-01-16] MEDS: TIZANIDINE 4 MG TABLET PO SCH ×2 (12:00→21:35)
--- NOTE | 2021-01-16 12:53 | EKG ---
Test Date: 2021-01-16 Test Time: 09:29:14 Grey Roll Man: SATISH MEASUREMENT RESULTS: Intervals: Rate: 54 VA: 172 QRSD: 112 QT: 458 QTc: 434 [place]: P: 80 VA: 172 QRS: -31 T: 71 INTERPRETIVE STATEMENTS: Sinus bradycardia with marked sinus arrhythmia Left axis deviation Abnormal ECG Compared to ECG 01/11/2021 23:35:00 Left-axis deviation now present Sinus rhythm no longer present Electronically Signed On 01-16-21 12:52:28 CDT by Miguelito Flores
[2021-01-16] MEDS: TRAZODONE 50 MG TABLET PO SCH (21:00)
[2021-01-16] MEDS: BENZONATATE 100 MG CAP PO PRN (22:10)
[2021-01-17 04:13] LABS: Absolute Lymphocytes (CBC) 0.7 K/uL (0.7-4.9); Basophils % 0.4 % (0-1.3); Lymphocytes % 8.6 % (15.3-44.8); MPV 8.5 fL (7.6-11.3); RBC Red Blood Cell Count 4.42 M/uL (4.33-5.43)
[2021-01-17 05:53] LABS: ALT/SGPT 18 U/L (12-78); AST/SGOT 15 U/L (15-37); BUN Blood Urea Nitrogen 19 mg/dL (7-18); Bicarbonate 27 mmol/L (21-32); Ferritin 160.6 ng/mL (26-388); Glucose Level 291 mg/dL (74-106); Magnesium 2.4 mg/dL (1.8-2.4); Potassium 4.7 mmol/L (3.5-5.1); Sodium Level 139 mmol/L (136-145)
[2021-01-17] MEDS ORDERED: GLUCAGON 1 MG/VIAL IM PRN (06:02)
[2021-01-17] MEDS ORDERED: D50W 25 GM/50 ML SYRINGE IV PRN (06:02)
[2021-01-17] MEDS: THIAMINE HCL 100 MG TABLET PO SCH (08:33)
[2021-01-17] MEDS: PREGABALIN 150 MG CAP PO SCH ×4 (08:34→21:12)
[2021-01-17] MEDS: VITAMIN D 1000 UNIT TAB PO SCH (08:34)
[2021-01-17] MEDS: PREGABALIN 50 MG CAP PO SCH ×4 (08:34→21:12)
[2021-01-17] MEDS: ASCORBIC ACID 500 MG TABLET PO SCH ×5 (08:35→21:00)
[2021-01-17] MEDS: METHYLPREDNISOLONE 125 MG INJ IV SCH (08:35)
[2021-01-17] MEDS: RIVAROXABAN 10 MG TABLET PO SCH (08:37)
[2021-01-17] MEDS: ZINC SULFATE 220 MG CAP PO SCH (08:37)
[2021-01-17] MEDS: POLYETHYL GLY 3350 17 GM/DOSE PO SCH ×3 (08:37→21:11)
[2021-01-17] MEDS: FAMOTIDINE 20 MG TAB PO SCH ×2 (08:37→21:12)
[2021-01-17] MEDS: ETODOLAC 500 MG PO SCH ×2 (08:38→21:00)
[2021-01-17] MEDS: INSULIN 70/30 100 UNITS/ML SQ SCH ×2 (08:38→16:45)
[2021-01-17] MEDS: INSULIN -REGULAR HUMAN 50 UNIT/0.5 ML ML SQ SCH ×4 (08:40→21:10)
[2021-01-17] MEDS: TIZANIDINE 4 MG TABLET PO SCH ×2 (12:00→21:12)
[2021-01-17] MEDS: HYDROCODONE/APAP 10/325 TAB PO PRN (12:25)
[2021-01-17] MEDS ORDERED: D50W 25 GM/50 ML VIAL IV PRN ×2 (15:00→17:04)
--- NOTE | 2021-01-17 15:36 | P.PN ---
Subjective Date of Service: 01/17/21 Primary Care Provider: Dr. Hull Chief Complaint: hypotension, COVID+ Subjective: Other (Patient reports episode of feeling well yesterday, most chest discomfort-mostly with deep inspiration. Continues to be bradycardic 30s-40s, ambulating without any lightheadedness in the room. Still reporting very short of breath/dyspnea on exertion. Denies nausea/vomiting, no diarrhea) Review of Systems 10-point ROS is otherwise unremarkable Physical Examination - Vital Signs Temperature: 97.6 F Blood Pressure: 170/84 Pulse: 58 Respirations: 23 Pulse Ox (%): 93 - Studies Microbiology Data (last 24 hrs): 01/11/21 23:08 Blood - Blood Aerobic Blood Culture - Final No growth in 5 days. 01/11/21 23:08 Blood - Blood Anaerobic Blood Culture - Final No growth in 5 days. 01/11/21 23:11 Blood - Blood Aerobic Blood Culture - Final No growth in 5 days. 01/11/21 23:11 Blood - Blood Anaerobic Blood Culture - Final No growth in 5 days. Assessment & Plan Physician Review Additional Text: Physical Exam General: Alert, In no apparent distress, Oriented x3 HEENT: PERRL, sclera anicteric, normal conjunctiva Pulm: b/l crackles at bases, nonlabored respirations on 2L NC CV: sinus braycardia ~40s, no edema, no murmur Abd: soft, NTND Integumentary: No rashes Neurological: Normal strength at 5/5 x4 extr, normal affect MSK: Midsternal chest wall tenderness to palpation Problem List: Acute hypoxic respiratory failure secondary to COVID-19 pneumoniavirus Sinus Bradycardia Labile blood pressure Diabetes mellitus type 2, non-insulin dependent Steroid induced hyperglycemia History of DVT (deep vein thrombosis) CXR on 01/15 with worsening b/l opacities. Patient still SOB/[place] Continue IV steroid, vitamin supplementation. Wean O2 as tolerated Received Remdesevir on 01/14 and 01/15 Unclear reason for bradycardia, pt has not received any beta jeanmarie. Otherwise on home medications he has tolerated. Possible side-efffect from remdesevir - discontinued EKG: Sinus bradycardia Echocardiogram performed 01/16-awaiting final read Cardiology consulted continue home Xarelto CT abdomen and pelvis done did not show any obstructive uropathy. Patient has normal renal function. Kayexalate p.r.n. for hyperkalemia Sliding scale insulin, insulin 70 30 started for hyperglycemia, titrate as needed CRP improved VTE: Xarelto Code: full Dispo: anticipate dc home in ~24-48hrs, may need home O2. needs improvement of bradycardia Time Spent Managing Pts Care (In Minutes): 35
[2021-01-17] MEDS: INSULIN -REGULAR HUMAN 50 UNIT/0.5 ML ML IV ONE ×2 (17:04→18:20)
[2021-01-17] MEDS ORDERED: INSULIN -REGULAR HUMAN 50 UNIT/0.5 ML ML IV ONE (20:11)
[2021-01-17] MEDS: TRAZODONE 50 MG TABLET PO SCH (21:00)
[2021-01-17] MEDS ORDERED: METHYLPREDNISOLONE 125 MG INJ IV SCH ×2 (21:00)
[2021-01-17] MEDS: BENZONATATE 100 MG CAP PO PRN (21:35)
[2021-01-18 04:49] LABS: ALT/SGPT 23 U/L (12-78); AST/SGOT 15 U/L (15-37); BUN Blood Urea Nitrogen 22 mg/dL (7-18); Bicarbonate 28 mmol/L (21-32); Ferritin 132.1 ng/mL (26-388); Glucose Level 187 mg/dL (74-106); Magnesium 2.6 mg/dL (1.8-2.4); Phosphorus 3.5 mg/dL (2.5-4.9); Potassium 4.6 mmol/L (3.5-5.1); Sodium Level 142 mmol/L (136-145)
[2021-01-18] MEDS: INSULIN -REGULAR HUMAN 50 UNIT/0.5 ML ML SQ SCH ×4 (07:30→20:23)
--- NOTE | 2021-01-18 07:47 | RAD REPORT ---
EXAM DESCRIPTION: Venkat Single View01/18/2021 6:39 am CLINICAL HISTORY: Pneumonia COMPARISON: January 14 FINDINGS: Slight improvement in the diffuse bilateral pulmonary opacities. Heart is normal size IMPRESSION: Slight improvement in the bilateral pneumonia
--- NOTE | 2021-01-18 08:17 | ECHO ---
HEIGHT: 6 ft 8 in WEIGHT: 285 lb 0 oz DATE OF STUDY: 01/16/[address]: Jefferson Sparks MD 2-DIMENSIONAL: YES M.MODE: YES DOPPLER: YES COLOR FLOW: YES TDS: NO PORTABLE: NO DEFINITY: NO BUBBLE STUDY: NO DIAGNOSIS: BRADYCARDIA CARDIAC HISTORY: CATHERIZATION: NO SURGERY: NO PROSTHETIC VALVE: NO PACEMAKER: NO MEASUREMENTS (cm) DIASTOLIC (NORMALS) SYSTOLIC (NORMALS) IVSd 1.0 (0.6-1.2) LA Diam 3.1 (1.9-4.0) LVEF 69% LVIDd 5.7 (3.5-5.7) LVIDs 3.4 (2.0-3.5) %FS 40% LVPWd 1.0 (0.6-1.2) Ao Diam 2.9 (2.0-3.7) 2 DIMENSIONAL ASSESSMENT: RIGHT ATRIUM: NORMAL LEFT ATRIUM: NORMAL RIGHT VENTRICLE: NORMAL LEFT VENTRICLE: NORMAL TRICUSPID VALVE: NORMAL MITRAL VALVE: NORMAL PULMONIC VALVE: NORMAL AORTIC VALVE: NORMAL PERICARDIAL EFFUSION: NONE AORTIC ROOT: NORMAL LEFT VENTRICULAR WALL MOTION: NORMAL DOPPLER/COLOR FLOW: NORMAL COMMENTS: NORMAL 2D ECHOCARDIOGRAM WITH DOPPLER. NO WALL MOTION ABNORMALITY. NO EFFUSION. TECHNOLOGIST: Toni VILAL
[2021-01-18] MEDS: VITAMIN D 1000 UNIT TAB PO SCH (08:52)
[2021-01-18] MEDS: ZINC SULFATE 220 MG CAP PO SCH (08:52)
[2021-01-18] MEDS: RIVAROXABAN 10 MG TABLET PO SCH (08:52)
[2021-01-18] MEDS: FAMOTIDINE 20 MG TAB PO SCH ×2 (08:52→20:21)
[2021-01-18] MEDS: THIAMINE HCL 100 MG TABLET PO SCH (08:53)
[2021-01-18] MEDS: INSULIN 70/30 100 UNITS/ML SQ SCH ×2 (08:53→16:27)
[2021-01-18] MEDS: ASCORBIC ACID 500 MG TABLET PO SCH ×2 (08:53→12:11)
[2021-01-18] MEDS: PREGABALIN 50 MG CAP PO SCH ×3 (08:53→20:22)
[2021-01-18] MEDS: METHYLPREDNISOLONE 40 MG INJ IV SCH ×2 (08:55→09:07)
[2021-01-18] MEDS: PREGABALIN 150 MG CAP PO SCH ×3 (09:00→20:26)
[2021-01-18] MEDS: ETODOLAC 500 MG PO SCH ×3 (09:00→21:00)
[2021-01-18] MEDS: HYDROCODONE/APAP 10/325 TAB PO PRN ×2 (09:08→21:52)
[2021-01-18] MEDS: TIZANIDINE 4 MG TABLET PO SCH ×2 (12:10→22:42)
[2021-01-18] MEDS: AMLODIPINE 10 MG TAB PO SCH (12:38)
--- NOTE | 2021-01-18 12:38 | P.PN ---
Subjective Date of Service: 01/18/21 Primary Care Provider: Dr. Hull Chief Complaint: hypotension, COVID+ Subjective: No new changes (slept well, no acute events overnight. continues with HR: 30-40s, occasionally in 50s feels "run down", denies lightheadedness, no palpitations) Review of Systems 10-point ROS is otherwise unremarkable Physical Examination - Vital Signs Temperature: 98.1 F Blood Pressure: 178/86 Pulse: 41 Respirations: 20 Pulse Ox (%): 96 Assessment & Plan Physician Review Additional Text: Physical Exam General: Alert, In no apparent distress, Oriented x3 HEENT: PERRL, sclera anicteric, normal conjunctiva Pulm: b/l crackles at bases, nonlabored respirations on 4L NC CV: sinus braycardia ~40s, no edema, no murmur Abd: soft, nontender, nondistended Integumentary: No rashes Neurological: Normal strength at 5/5 x4 extr, normal affect MSK: Midsternal chest wall tenderness to palpation Problem List: Acute hypoxic respiratory failure secondary to COVID-19 pneumoniavirus Sinus Bradycardia Hypertension Diabetes mellitus type 2, non-insulin dependent Steroid induced hyperglycemia History of DVT (deep vein thrombosis) CXR on 01/15 with worsening b/l opacities. CXR today: The improvement Patient feels he gets worse after he is given IV steroids and all of his vitamins Bradycardia may be secondary to Remdesevir -received on 01/14 and 01/15 - some metabolites have t1/2 of 24hrs. should be working its way out of his system now Given his improvement as CRP, CXR, and symptoms of steroids, will deescalate switch to p.o. prednisone today Possibility of steroid induced bradycardia EKG: Sinus bradycardia, Echocardiogram (01/16): Normal Cardiology consulted - no further workup/evaluation at this time. Continue to monitor for improvement continue home Xarelto CT abdomen and pelvis done did not show any obstructive uropathy. Patient has normal renal function. Kayexalate p.r.n. for hyperkalemia Sliding scale insulin, insulin 70 30 started for hyperglycemia, titrate as needed CRP improved VTE: Xarelto Code: full Dispo: anticipate dc home in ~24-48hrs, needs improvement of bradycardia Home O2 set up Time Spent Managing Pts Care (In Minutes): 35
[2021-01-18] MEDS ORDERED: HYDRALAZINE HCL 20 MG/ML VIAL IV PRN (15:56)
--- NOTE | 2021-01-18 18:53 | CON ---
Date of Consultation: 01/16/2021 Reason For Consultation: Bradycardia. History Of Present Illness: Mr. Ribeiro is a 60-year-old male, who was admitted with COVID pneumonia o n 01/12/2021. He has a history of diabetes, hypertension, DVT. He is on Xarelto, insulin, and stero id. He is on antibiotics. While he was in the hospital, he was noted to have a heart rate of 36 cristian t was thought secondary to remdesivir. No hemodynamic compromise and no cardiac symptoms. Past Medical History: As stated above. Allergies: NONE. Review of Systems: Negative. Social History: Negative. Family History: Negative. Medications: Listed by Dr. Sparks. Physical Examination: Vital Signs: Stable, afebrile. When I saw him; his heart rate was 52, blood pressure was adequate, O2 saturations were adequate. HEENT: Negative. Neck: Supple with no bruit. Chest: Revealed crackles throughout. Cardiac: Revealed bradycardia with an S4 gallops. Abdomen: Benign. Extremities: Revealed no clubbing, cyanosis. He had trace edema. Diagnostic Data: Showed a heart rate of 36 yesterday. He had COVID pneumonia. Rest of the blood wo rk was unremarkable. Impression And Plan: Bradycardia, probably secondary to remdesivir, may be a combination of the Lyri ca as well. He has diabetes, dyslipidemia, history of deep vein thrombosis. I think an echocardiogr am is reasonable to rule out any cardiomyopathy causing the bradycardia. Meanwhile, I will stop remd esivir, maybe even stop the Lyrica. We will see what the echocardiogram shows. I will continue to f ollow him as needed. The case was discussed with Dr. Sparks. SHIRA/KATIA Voice ID: [id number] Report ID: [id number]
[2021-01-18] MEDS: dexAMETHasone 4 MG TAB PO SCH (20:22)
[2021-01-18] MEDS ORDERED: predniSONE 20 MG TAB PO SCH (21:00)
[2021-01-18] MEDS: TRAZODONE 50 MG TABLET PO SCH (22:43)
[2021-01-19 05:21] LABS: Absolute Lymphocytes (CBC) 0.8 K/uL (0.7-4.9); Basophils % 0.4 % (0-1.3); Hematocrit 40.7 % (39.6-49.0); Lymphocytes % 12.1 % (15.3-44.8); MPV 8.2 fL (7.6-11.3); RBC Red Blood Cell Count 5.12 M/uL (4.33-5.43)
[2021-01-19 05:36] LABS: ALT/SGPT 24 U/L (12-78); AST/SGOT 12 U/L (15-37); Albumin 2.7 g/dL (3.4-5.0); Alkaline Phosphatase 70 U/L (45-117); BUN Blood Urea Nitrogen 24 mg/dL (7-18); Bicarbonate 29 mmol/L (21-32); Bilirubin Total 0.4 mg/dL (0.2-1.0); C-Reactive Protein 8.39 mg/L (<3.00); Ferritin 103.2 ng/mL (26-388); Glucose Level 204 mg/dL (74-106); Magnesium 2.6 mg/dL (1.8-2.4); Phosphorus 3.6 mg/dL (2.5-4.9); Potassium 4.6 mmol/L (3.5-5.1); Protein, Total 6.9 g/dL (6.4-8.2); Sodium Level 139 mmol/L (136-145)
[2021-01-19] MEDS: INSULIN -REGULAR HUMAN 50 UNIT/0.5 ML ML SQ SCH ×3 (07:30→16:18)
[2021-01-19 07:54] LABS: Anisocytosis SLIGHT; Blood Morphology Comment NOTED (NOT SEEN); Hypochromasia 1+; Platelet Estimate ADEQ; Platelets, Giant PRESENT; White Blood Cell Scan OK (OK)
[2021-01-19] MEDS: VITAMIN D 1000 UNIT TAB PO SCH ×2 (08:44→08:45)
[2021-01-19] MEDS: FAMOTIDINE 20 MG TAB PO SCH (08:47)
[2021-01-19] MEDS: HYDROCODONE/APAP 10/325 TAB PO PRN ×2 (08:47→13:48)
[2021-01-19] MEDS: RIVAROXABAN 10 MG TABLET PO SCH ×2 (08:47→09:00)
[2021-01-19] MEDS: INSULIN 70/30 100 UNITS/ML SQ SCH ×2 (08:48→16:17)
[2021-01-19] MEDS: ETODOLAC 500 MG PO SCH ×2 (08:49→09:00)
[2021-01-19] MEDS: PREGABALIN 150 MG CAP PO SCH ×3 (08:49→13:46)
[2021-01-19] MEDS: dexAMETHasone 4 MG TAB PO SCH (08:49)
[2021-01-19] MEDS: PREGABALIN 50 MG CAP PO SCH ×2 (08:49→13:46)
[2021-01-19] MEDS: AMLODIPINE 10 MG TAB PO SCH (08:58)
[2021-01-19 12:35] VITALS: BP 121/61; TEMP 97.1
[2021-01-19] MEDS: TIZANIDINE 4 MG TABLET PO SCH (12:37)
[2021-01-19 13:16] VITALS: O2SAT 98
--- NOTE | 2021-01-19 15:01 | P.DS ---
Admission Date: 01/12/21 Discharge Date: 01/19/21 Primary Care Provider: Dr. Hull Disposition: ROUTINE DISCHARGE Discharge Condition: GOOD Reason for Admission: hypotension, COVID+ Consultations: Cardiology - Dr. Flores Procedures: CXR (01/11): Bilateral pulmonary opacities are noted, greater on the right. This is likely related to underlying viral infection. The heart is normal in size. No displaced fractures. CTA chest (01/12): 1. Imaging features can be seen with viral pneumonia, though are nonspecific and can occur with a variety of infectious and noninfectious processes. 2. No evidence of pulmonary embolism. CT abdomen/pelvis (01/06): Mild to moderate ground-glass opacities within the lungs likely pneumonia. No acute abnormality involving the abdomen/pelvis is seen CXR (01/06): Mild worsening in the bilateral pulmonary opacities probably pneumonia CXR (01/18): Slight improvement in the bilateral pneumonia' TTE (01/16): normal echo. no wall motion abnormality. no effusion. LVEF: 69% Problem List: Acute hypoxic respiratory failure secondary to COVID-19 pneumonia Sinus Bradycardia secondary to Remdesevir, possibly Solumedrol Hypertension Diabetes mellitus type 2, non-insulin dependent Steroid induced hyperglycemia History of DVT (deep vein thrombosis) Brief History of Present Illness: Mr. Ribeiro is a 60 yo male with HTN, HLD, DM, h/o DVT x2 on Xarelto presented due after recent COVID+ diagnosis Friday (01/08) now with hypotension, chills, cough. On arrival he was hypotensive to 89/51 now improved too 100/65 after 3L of fluid, sats 100% on room air. He reports 3 days of worsening nausea, vomiting, abdominal pain, cough, night sweats, chills, blurry vision, weakness, malaise, constipation and dizziness with standing. He feels worse with walking, improved with lying down, tylenol, and has been taking zinc at home. He denies palpitations, SOB, diarrhea, hemoptysis, edema. CTPE consistent with viral pneumonia, no evidence of PE. H/h 11.4/36.2, MCV 79.8. D-dimer 2433. GFR 69. Glu 113. Hospital Course: The patient was treated with IV steroids, vitamin supplementation, and received 2 doses of Remdesevir. He had improvement in his hypoxia and dyspnea, however on hospital day 2, he was noted to become bradycardic down to the 30s. This seemed to coincide after receiving Remdesevir, and so this medication was discontinued. An echocardiogram was obtained on 01/16 and was normal. An EKG consistent with sinus bradycardia, no evidence of heart block or ischemia, troponins negative. Cardiology was consulted and recommended no further workup at this time. Patient continued to have bradycardia slightly improved 2-3 days after his last Remdesevir dose. The patient was also now reporting feeling worse and having some chest discomfort after receiving Solu-Medrol. For this reason he was switched to dexamethasone with improvement of his symptoms and his heart rate. On day of discharge, the patient's heart rate was stable in the 60s-70s, he was breathing comfortably on 3L NC, ambulating, tolerating diet, and feeling well. He was discharged home with a 2 week course of dexamethasone, to continue vitamin supplementation, and follow up with Dr. Andrew in 1 week. He was hyperglycemic due partly due steroid use, and was discharged with insulin . He is to f/u with PCP in 3-5 days. Instructed to record glucometer readings and review with PCP for further titration of insulin. He was discharged with home oxygen set up. Vital Signs/Physical Exam: Physical Exam General: Alert, In no apparent distress, Oriented x3 HEENT: PERRL, sclera anicteric, normal conjunctiva Pulm: nonlabored respirations on 3L NC, diminished at bases bilaterally, otherwise clear to auscultation CV: regular rate and rhythm HR:70s, no edema, no murmur Abd: soft, nontender, nondistended Integumentary: No rashes, no lesions Temp Pulse Resp BP Pulse Ox 97.1 F 70 18 121/61 98 01/19/21 12:00 01/19/21 12:00 01/19/21 13:48 01/19/21 12:00 01/19/21 13:48 Laboratory Data at Discharge: WBC 7.00 K/uL (4.3-10.9) 01/19/21 04:40 Hgb 12.9 g/dL (13.6-17.9) L 01/19/21 04:40 Hct 40.7 % (39.6-49.0) D 01/19/21 04:40 Plt Count 229 K/uL (152-406) 01/19/21 04:40 PT 24.8 SECONDS (9.5-12.5) H 01/11/21 23:08 INR 2.14 01/11/21 23:08 Sodium 139 mmol/L (136-145) 01/19/21 04:40 Potassium 4.6 mmol/L (3.5-5.1) 01/19/21 04:40 BUN 24 mg/dL (7-18) H 01/19/21 04:40 Creatinine 0.96 mg/dL (0.55-1.3) 01/19/21 04:40 Glucose 204 mg/dL (74-106) H 01/19/21 04:40 Phosphorus 3.6 mg/dL (2.5-4.9) 01/19/21 04:40 Magnesium 2.6 mg/dL (1.8-2.4) H 01/19/21 04:40 Total Bilirubin 0.4 mg/dL (0.2-1.0) 01/19/21 04:40 AST 12 U/L (15-37) L 01/19/21 04:40 ALT 24 U/L (12-78) 01/19/21 04:40 Alkaline Phosphatase 70 U/L (45-117) 01/19/21 04:40 Troponin I < 0.02 ng/mL (0.0-0.045) 01/17/21 08:52 Triglycerides 137 mg/dL (<150) 01/13/21 06:15 Cholesterol 138 mg/dL (<200) 01/13/21 06:15 HDL Cholesterol 31 mg/dL (40-60) L 01/13/21 06:15 Cholesterol/HDL Ratio 4.45 01/13/21 06:15 Home Medications: Hydrocodone/Acetaminophen [Hydrocodone-Acetamin 10-325 mg] 1 tab PO QID 10/15/18 Diazepam [Valium] 5 mg PO DAILY PRN 01/12/21 Etodolac [Lodine Xl] 500 mg PO BID 01/12/21 Pregabalin 200 mg PO TID 01/12/21 Rivaroxaban [Xarelto] 10 mg PO DAILY 01/12/21 Tizanidine [Zanaflex*] 4 mg PO DAILY 01/12/21 Tizanidine [Zanaflex*] 8 mg PO BEDTIME 01/12/21 Trazodone HCl 100 mg PO BEDTIME 01/12/21 Cholecalciferol (Vitamin D3) [Vitamin D 1000 Iu Tab*] 4,000 unit PO DAILY 30 Days #120 tab 01/19/21 Insulin 70/30 NPH/Reg Human [Novolin 70/30*] 15 unit SQ BID 30 Days #10 ml 01/19/21 Thiamine HCl [Vitamin B-1*] 200 mg PO DAILY 30 Days #60 tablet 01/19/21 Zinc Sulfate [Zinc Sulfate*] 220 mg PO DAILY 30 Days #30 cap 01/19/21 dexAMETHasone [Decadron*] 4 mg PO SEECOM 14 Days #21 tab 01/19/21 New Medications: dexAMETHasone [Decadron*] 4 mg PO SEECOM 14 Days #21 tab Insulin 70/30 NPH/Reg Human [Novolin 70/30*] 15 unit SQ BID 30 Days #10 ml Thiamine HCl [Vitamin B-1*] 200 mg PO DAILY 30 Days #60 tablet Cholecalciferol (Vitamin D3) [Vitamin D 1000 Iu Tab*] 4,000 unit PO DAILY 30 Days #120 tab Zinc Sulfate [Zinc Sulfate*] 220 mg PO DAILY 30 Days #30 cap Physician Discharge Instructions: You were found to have COVID-19 Pneumonia and you improved with steroids. You had a slow heart rate, likely due to Remdesevir and possibly by Solumedrol (steroids). You did well with dexamethasone (steroid). You are discharged home with 2 weeks of dexamethasone. Continue vitamins and home medications as prescribed. Continue to use oxygen as needed to maintain oxygen saturation > 90%. The steroids increase your blood glucose, so you are prescribed insulin 70/30 to help cover for this increase and will likely only be needed while taking steroids. Follow up with Dr. Andrew (lung doctor) in 1 week. Please call his office to schedule appointment Please follow up with PCP in ~1 week. 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
[2021-01-19] MEDS ORDERED: THIAMINE HCL 100 MG TABLET PO SCH (18:00)
[2021-01-19] MEDS ORDERED: ZINC SULFATE 220 MG CAP PO SCH (18:00)
== END 2021-01-19 17:26 | disposition home or self-care (01) | DRG 177 ==
LOC: ER 22:13 → ERHOLD 01-12 01:55 → 3RD-ICU 01-12 08:46 → 4TH 01-12 18:25
PROVIDERS: ADMIT Internal Medicine; ATTEND Hospitalist
PROC: XW033E5 Introduction of Remdesivir Anti-infective into Peripheral Vein, Percutaneous Approach, New Technology Group 5 (ICD-10-PCS; principal; 2021-01-14)
DX: U07.1 COVID-19 (principal); J12.82 Pneumonia due to coronavirus disease 2019; J96.01 Acute respiratory failure with hypoxia; E78.5 Hyperlipidemia, unspecified; I10 Essential (primary) hypertension; K59.00 Constipation, unspecified; I95.9 Hypotension, unspecified; E83.41 Hypermagnesemia; E09.65 Drug or chemical induced diabetes mellitus with hyperglycemia; E87.5 Hyperkalemia; G89.4 Chronic pain syndrome; D64.9 Anemia, unspecified; T50.995A Adverse effect of other drugs, medicaments and biological substances, initial encounter; T38.0X5A Adverse effect of glucocorticoids and synthetic analogues, initial encounter; R00.1 Bradycardia, unspecified; Z79.899 Other long term (current) drug therapy; Z86.718 Personal history of other venous thrombosis and embolism; Z87.891 Personal history of nicotine dependence; Z96.652 Presence of left artificial knee joint; Z79.01 Long term (current) use of anticoagulants; Z79.4 Long term (current) use of insulin
CPT/HCPCS: 36415; 71045; 71275; 74177; 80048; 80053; 80061; 80076; 81003; 82728; 82947; 83036; 83540; 83605; 83735; 83880; 84100; 84132; 84145; 84439; 84443; 84450; 84460; 84466; 84484; 85025; 85379; 85610; 86140; 87040; 93005; 93306; 94760; 96361; 96365; 96375; 99285; J0360; J0456; J1815; J2405; J2920; J2930; J7030; J7050; J7512; J8540; Q9967

== ENCOUNTER 2021-01-23 21:28 | Observation (INO) | payer OTHER ==
--- OUTSIDE RECORDS SUMMARY | 2021-01-23 21:34 | XMS REPORT | Continuity of Care Document ---
:1960 Author Organization [facility] t Address [address] [place] [address] Care Team Providers Name Role Phone PARK [...] Mem oria 07-14 09:59:00 l XRAY 09:59: [place] 00 Active 07/14/2017 [facility] BACK PAIN Diagnosis Active 2017-07-15 Memoria 06-19 22:02:00 l BACK 00:00: [place] PAIN 00 Active 06/19/2017 Hilary Winter [facility] 724.2 Diagnosis Active 2015-07-17 Mem oria 05-24 17:22:00 l 724.2 00:00: [place] 00 Active 05/24/2015 [facility] 724.2 Diagnosis Active 2015-06-19 Mem oria ACUTE LOW 7- 15:38:00 l BACK PAIN 724.2 00:00: Tomer n ACUTE LOW 00 BACK PAIN Active 05/09/2015 [facility] Chronic Problem Resolve 2019-10-29 [facility] oria back pain d 02:08:59 l (disorder) Chronic Her perez back pain (disorder) Resolved Problem 10/29/2019 [facility] Diabetes Problem Resolve 2019-10-29 Co moria mellitus d 02:08:59 l (disorder) Diabetes He rmann mellitus (disorder) Resolved Problem 10/29/2019 [facility] Hypertensi Problem Resolve 2019-10-29 Memoria ve d 02:08:59 l disorder, Moy systemic Hypertensi arterial ve (disorder) disorder, systemic arterial (disorder) Resolved Problem 10/29/2019 [facility] Type 2 Diagnosis Active 2017-10-29 [facility] oria diabetes 03:45:29 l mellitus Type 2 Tomer n without diabetes complicati mellitus on, without without complicati long-term on, current without use of long-term insulin current use of insulin Active Diagnosis 10/29/2017 2.16.840.1 .729909.4. ..225 68 Staphyloco Diagnosis Active 2017-10-29 [facility] ccus 03:45:29 l aureus [place] bacteremia Staphyloco with ccus sepsis aureus bacteremia with sepsis Active Diagnosis 10/29/2017 2.16.840.1 .165683.4. 11.225 68 Abscess in Diagnosis Active 2017-10-29 Memoria epidural 03:45:29 l space of Abscess Margo nn thoracic in spine epidural space of thoracic spine Active Diagnosis 10/29/2017 2.16.840.1 .213212.4. [id number] 68 Local Diagnosis Active 2017-09-10 Mem oria infection 03:45:50 l of the Local [place] skin and infection subcutaneo of the us tissue, skin and unspecifie subcutaneo d us tissue, unspecifie d Active Diagnosis 09/10/2017 2.16.840.1 .961188.4. [id number] 68 Abrasion Diagnosis Active 2017-09-10 M emoria of right 03:45:50 l front wall Abrasion He rmann of thorax, of right subsequent front wall encounter of thorax, subsequent encounter Active Diagnosis 09/10/2017 2.16.840.1 .905414.4. [id number] 68 Osteomyeli Problem Active 2017-10-29 M emoria tis 03:45:29 l [place] Osteomyeli tis Active Problem 10/29/2017 2.16.840.1 .609932.4. 39111.225 68 Sepsis Problem Active 2017-10-29 Memor ia 03:45:29 l Sepsis [place] Active Problem 10/29/2017 2.16.840.1 .927020.4. 391.225 68 Bacteremia Problem Active 2017-10-29 M emoria 03:45:29 l Moy Bacteremia Active Problem 10/29/2017 2.16.840.1 .538269.4. 391.225 68 HTN Problem Active 2017-10-29 Memor ia (hypertens 03:45:29 l ion) HTN [place] (hypertens ion) Active Problem 10/29/2017 2.16.840.1 .320010.4. 391.225 68 Epidural Problem Active 2017-10-29 Mem oria abscess 03:45:29 l Epidural Tomer n abscess Active Problem 10/29/2017 2.16.840.1 .399228.4. 39111.225 68 Chronic Problem Active 2017-10-29 Kiko madelin back pain 03:45:29 l Chronic [place] back pain Active Problem 10/29/2017 2.16.840.1 .615364.4. 39111.225 68 Simple Problem Active 2019-10-29 Memor ia obesity 02:08:59 l (disorder) Simple Herm jah obesity (disorder) Active Problem 10/29/2019 [facility] DORSALGIA, Diagnosis Active 2017-07-15 Memoria UNSPECIFIE 22:02:00 l D [place] DORSALGIA, UNSPECIFIE D Active [facility] Allergies, Adverse Reactions, Alerts Allergy Allergy Status Severity Reaction(s) Onset Inactive Treating Comm ents Source Name Type Date Date Clinician N.K.D.A. N.K.D.A. Active Info Not 2017-1 Kiko madelin Available 2-14 l 00:00: [place] 00 No Known No Known Active Memori a Medicati Medicati l on on Moy Brown s s Social History Smoking Status Start Date Stop Date Source Social History [facility] Medications Ordered Filled Start Stop Current Ordering Indication Dosage Frequency Signature Comments Components Source Medication Medication Date Date Medication? Clinician (SIG) Name Name MetFORMIN MetFORMIN Yes Deepthi [address] [facility] HCl ER HCl ER 6-17 [place] [facility]oria 00 meal [facility] Xarelto Xarelto 2018-10 Yes Deepthi [address] 2-09 [place] [facility]oria [facility] l [facility] Cefazolin Yes Soto not Kiko madelin in D5W 1-10 Garza defined l 03:45: [place] 29 Duexis 2017-0 Yes Soto TAKE 1 [...] Garza TABLET BY l 03:45: MOUTH 3 [place] 29 TIMES A DAY FOR 30 DAYS Cyclobenzap 2017-0 Yes Soto TK 1 T PO Memoria rine HCl 1-10 Garza Q 8 H PRN l 03:45: MUSCLE Moy 29 SPASMS Methocarbam 2018-0 Yes Soto TAKE 1 TO Memoria ol 1-10 Garza 2 TABLETS l 03:45: BY MOUTH [place] 29 EVERY 8 HOURS NEEDED FOR MUSCLE [...] 06-30 Route: NG, l 19:25: Drug form: [place] 00 LIQ, Q4H, Dosing Weight 129, kg, PRN Pain Score 7-10, Start date: 06/30/17 14:25:00 CDT, Duration: 30 day, Stop date: 07/30/17 14:24:00 CDT Hydromorpho 2017-0 No 0.5 mg, Mem oria ne 06-30 Route: l 19:25: IVP, [place] 00 Q5Min, Dosing Weight 129, kg, PRN Pain Score 7-10, Start date: 06/30/17 14:25:00 CDT, Duration: 4 doses or times, Stop date: Limited # of times Fentanyl 2016-0 No 50 Memoria 06-30 microgram, l 19:25: Route: [place] 00 IVP, Q5Min, Dosing Weight 129, kg, [...] ia 06-30 Route: l 19:25: IVP, ONCE, [place] 00 Dosing Weight 129, kg, PRN Nausea & Vomiting, Start date: 06/30/17 14:25:00 CDT Meperidine 2017-0 No 12.5 mg, Mem oria 06-30 Route: l 19:25: IVP, [place] 00 Q30Min, Dosing Weight 129, kg, PRN [...] INJ (ANES) 06-30 Total l 17:39: Volume: [place] 00 1,000, Start date: 06/30/17 12:39:00 CDT, [...] Notes: Memoria 06-30 (Same l 15:32: as:MORPhin [place] 00 e Sulfate) Lactated 2017-0 No 1,000 mL, Kiko madelin Ringers 06-30 Rate: 100 l 1,000 mL 05:00: ml/hr, [place] 00 Infuse over: 10 hr, Route: IV, Dosing Weight 129 kg, Total Volume: 1,000, Priority: Routine, Start date: 06/30/17 0:00:00 CDT, Duration: 30 day, Stop date: 07/29/17 23:59:00 CDT Clonidine No Notes: Memori a Hydrochlori 06-28 (Same As: l de 0.1 MG 22:08: Catapres) Her perez Oral Tablet Calcium No Notes: Memoria Gluconate 06-28 WASTE: F/P l 22:01: - Sink; E Moy - Municipal Trash Bin K-Dur 20 No Notes: Memoria 06-28 (Same as: l 22:01: K-Dur ) [place] 00 "Do Not Crush" With food and full glass of water gabapentin No Notes: Memor ia 06-28 (Same as: l 10:30: Neurontin) [place] 00 heparin No Notes: Memoria sodium, 06-28 porcine l porcine 05:00: heparin Moy 2500 UNT/ML 00 Injectable Solution gabapentin Yes 800 mg = 1 M emoria 800 MG Oral 06-28 tab, PO, l Tablet 01:45: TID, # 90 Tomer n 00 tab, 3 Refill(s) Acetaminoph Yes 1 tab, PO, Memoria en 325 MG / 06-28 Q6H, PRN l Hydrocodone 01:45: for pain, H ermann Bitartrate 00 # 24 tab, 10 MG Oral 0 Tablet Refill(s) [[place] 10/325] Docusate No Notes: Memoria Sodium 100 06-27 (Same as: l MG Oral 22:00: Colace) [place] Capsule (Do Not Crush) Hydromorpho No 15 mg, 30 M emoria ne 06-27 mL, Route: l 19:30: IV, Moy Initial Loading Dose: 0.4mg, BEHAVIORAL MEDICAL DIRECTOR Dose: 0.2 mg, BEHAVIORAL MEDICAL DIRECTOR Lockout: 10 minutes, Continuous Basal Rate: 0 mg, 4 Hour Limit (In MG): 6, Continuous , Start date: 06/27/17 14:30:00 CDT, Duration: 30 day, Stop date: 07/27/17 14:29:00 CDT Naloxone No Notes: Memoria 06-27 Same as l 19:12: Narcan Morphine No 30 mg, 30 Kiko madelin 9-08 mL, Route: l 19:00: IV, Initial Loading Dose: 2 mg, BEHAVIORAL MEDICAL DIRECTOR Dose: 1 mg, BEHAVIORAL MEDICAL DIRECTOR Lockout: 10 minutes, Continuous Basal Rate: 0 [...] ia 06-27 (Same as: l 18:49: Romazicon) [place] 00 Calcium No 1,000 mL, Memor ia Chloride 06-27 Rate: 125 l 0.0014 18:49: ml/hr, [place] MEQ/ML / 00 Infuse Potassium over: 8 Chloride hr, Route: 0.004 IV, Dosing MEQ/ML / Weight 129 Sodium kg, Total Chloride Volume: 0.103 1,000, MEQ/ML / Start Sodium date: Lactate 06/27/17 0.028 13:49:00 MEQ/ML CDT, Injectable Duration: Solution 30 day, Stop date: 07/27/17 13:48:00 CDT Oxycodone No Notes: Memori a 06-27 (Same as: l 18:49: Roxicodone [place] 00 ) Acetaminoph No Notes: Max Memoria en 06-27 acetaminop l 18:49: hen 4000 Moy 00 mg/day (4 gm/day). (Same as: Tylenol Extra Strength) Hydralazine No Notes: Kiko madelin 06-27 (Same as: l 18:49: Apresoline Moy 00 ) Push over 5 minutes Naloxone [...] 06-27 not give l 18:43: IV push. [place] (Same as: Phenergan) Acetaminoph No Notes: Do M emoria en 325 MG / 06-27 not exceed l Hydrocodone 18:43: 4gm/day of [place] Bitartrate 00 acetaminop 10 MG Oral hen. Tablet (Same as: [place] 325/10) phenylephri No Route: IV, Memoria ne [...] as: l / 14:38: Duoneb) Ipratropium 00 [place] 0.167 MG/ML Inhalant Solution Calcium No 1,000 [...] 06-27 Drug form: l 14:21: INJ, ONCE, [place] 00 Stop date: 06/27/17 9:21:00 CDT succinylcho 2016-0 No Route: IV, Memoria line (ANES) 06-27 Drug form: l 14:21: INJ, ONCE, [place] 00 Stop date: 06/27/17 9:21:00 CDT propofol 2017-0 No Route: IV, Mem oria (ANES) 06-27 Drug form: l 14:21: INJ, ONCE, Moy 00 Stop date: 06/27/17 9:21:00 CDT rocuronium 2016- No Route: IV, M emoria (ANES) 06-27 Drug form: l 14:21: INJ, ONCE, Stop date: 06/27/17 9:21:00 CDT lidocaine 2017-0 No Route: IV, Me moria (ANES) 06-27 Drug form: l 14:16: INJ, ONCE, Stop date: 06/27/17 9:16:00 CDT midazolam 2016-0 No Route: IV, Me moria (ANES) 06-27 Drug form: l 14:16: SOLN, [place] 00 ONCE, Stop date: 06/27/17 9:16:00 CDT acetaminoph 2016- No Route: IV, Memoria en (ANES) 06-27 Drug form: l 14:16: INJ, ONCE, Stop date: 06/27/17 9:16:00 CDT fentaNYL 2017-0 No Route: IV, Mem oria (ANES) 06-27 Drug form: l 14:16: INJ, ONCE, [place] 00 Stop date: 06/27/17 9:16:00 CDT ceFAZolin 2016- No Route: IV, Me moria (ANES) 06-27 Drug form: l 14:11: INJ, ONCE, [place] 00 Stop date: 06/27/17 9:11:00 CDT vancomycin 2016-0 No Route: IV, M emoria (ANES) 06-27 Drug form: l (ANES) 13:37: INJ, Start Margo 00 date: 06/27/17 8:37:00 CDT, Stop date: 06/27/17 9:37:00 CDT LR 1000 mL No Route: IV, M emoria INJ (ANES) 06-27 Total l 12:56: Volume: [place] 00 1,000, Start date: 06/27/17 7:56:00 CDT, [...] 22:00: Colace) Moy Capsule (Do Not Crush) Lactulose No Notes: Memori a 667 MG/ML 06-26 (Same l Oral 18:48: as:Chronul [place] Solution 00 ac) gabapentin No Notes: Memor ia 06-26 (Same as: l 18:30: Neurontin) Moy 00 Lidocaine No Notes: Memori a 40 MG/ML 06-26 (Same as: l Topical 15:29: Xylocaine) Herm jah Cream 00 metoprolol No Notes: Memor ia tartrate 06-26 (Same as: l 02:00: Lopressor) [place] 00 Dilaudid No 0.8 mg, Memori a [...] 06-23 Route: PO, l 19:30: Drug Form: [place] 00 TAB, Dosing Weight 129, kg, TID, [...] l de 10 MG 23:11: BID, 0 [place] Oral Tablet 00 Refill(s) [Opana] gabapentin No Notes: Memor ia 06-21 (Same as: l 21:00: Neurontin) vancomycin No 2001 mg: Me moria 06-21 infuse l 05:00: over 2.5 [place] 00 hours Vancomycin No 1.25 gm, Mem oria 06-21 Route: IV, l 05:00: Q8H, [place] 00 Dosing Weight 129, kg, Start date: [...] eaRadha a 06-20 Route: l 18:00: MISC, Moy 00 ONCALL, Dosing Weight 129, kg, Start date: 06/20/17 13:00:00 CDT, day, Stop date: 06/20/17 13:00:00 CDT, Pharmacy to dose, ABX 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 Tablet (Same as: [[place] 10/325] 325/10) Dilaudid No 1 mg, 1 [...] Memoria 06-20 (Same as: l 03:48: Benadryl) [place] 00 Hydrocodone Hydrocodone Yes Deepthi not [facility] -Acetaminop -Acetaminop [place] defined [facility] ent Clinics Trazodone Trazodone Yes Deepthi [address] [facility] [address] HCl HCl [place] at bedtime [facility] Tizanidine Tizanidine Yes Deepthi tablet [facility] HCl HCl [place] [facility] Lyrica Lyrica Yes Deepthi 1 capsule [facility] [place] [facility] Vital Signs Vital Name Observation Time Observation Value Comments Source Weight 2017-10-02 20:30:00 [facility] Moy Height 2017-10-02 20:30:00 [facility] Moy Temperature Oral (F) 2017-10-02 20:30:00 97.6 F [facility] [place] Heart Rate 2017-10-02 20:30:00 [facility] M[place] Diastolic (mm Hg) 2017-10-02 20:30:00 Mem orial [place] Systolic (mm Hg) 2017-10-02 20:30:00 Kiko rial Moy Weight 2017-09-18 19:25:00 [facility] [place] BMI Calculated 2017-09-18 19:25:00 Memori al [place] Height 2017-09-18 19:25:00 200.66 cm [facility] Moy Weight 2017-09-09 20:45:00 [facility] [place] Height 2017-09-09 20:45:00 [facility] [place] Temperature Oral (F) 2017-09-09 20:45:00 98.2 F [facility] [place] Heart Rate 2017-09-09 20:45:00 [facility] [place] Diastolic (mm Hg) 2017-09-09 20:45:00 Mem orial [place] Systolic (mm Hg) 2017-09-09 20:45:00 Kiko rial Moy Weight 2017-08-19 19:00:00 [facility] [place] Height 2017-08-19 19:00:00 [facility] Moy Temperature Oral (F) 2017-08-19 19:00:00 97.9 F [facility] [place] Heart Rate 2017-08-19 19:00:00 [facility] [place] Diastolic (mm Hg) 2017-08-19 19:00:00 Mem orial Moy Systolic (mm Hg) 2017-08-19 19:00:00 Kiko rial [place] Weight 2017-08-12 18:30:00 [facility] Moy Height 2017-08-12 18:30:00 [facility] [place] Temperature Oral (F) 2017-08-12 18:30:00 98.1 F [facility] Moy Heart Rate 2017-08-12 18:30:00 [facility] [place] Diastolic (mm Hg) 2017-08-12 18:30:00 Mem orial Moy Systolic (mm Hg) 2017-08-12 18:30:00 Kiko rial Moy Weight 2017-08-05 19:30:00 [facility] Moy Height 2017-08-05 19:30:00 [facility] [place] Temperature Oral (F) 2017-08-05 19:30:00 978 F [facility] [place] Heart Rate 2017-08-05 19:30:00 [facility] Moy Diastolic (mm Hg) 2017-08-05 19:30:00 Mem orial [place] Systolic (mm Hg) 2017-08-05 19:30:00 Kiko rial Moy Weight 2017-07-22 18:15:00 [facility] M[place] Height 2017-07-22 18:15:00 [facility] [place] Temperature Oral (F) 2017-07-22 18:15:00 98.3 F [facility] M[place] Heart Rate 2017-07-22 18:15:00 [facility] [place] Diastolic (mm Hg) 2017-07-22 18:15:00 Mem orial [place] Systolic (mm Hg) 2017-07-22 18:15:00 Kiko rial Moy Respitory Rate 2017-07-05 00:47:00 Memori al [place] Systolic (mm Hg) 2017-07-04 21:00:00 Kiko rial [place] Diastolic (mm Hg) 2017-07-04 21:00:00 Mem orial Moy Respitory Rate 2017-07-04 21:00:00 Memori al Moy Temperature Oral (F) 2017-07-04 21:00:00 97.6 F Memorial [place] Heart Rate 2017-07-04 21:00:00 [facility] Moy Systolic (mm Hg) 2017-07-04 17:00:00 Kiko rial [place] Diastolic (mm Hg) 2017-07-04 17:00:00 Mem orial Moy Temperature Oral (F) 2017-07-04 17:00:00 97.9 F [facility] M[place] Heart Rate 2017-07-04 17:00:00 [facility] [place] Systolic (mm Hg) 2017-07-04 13:10:00 Kiko rial [place] Diastolic (mm Hg) 2017-07-04 13:10:00 Mem orial [place] Heart Rate 2017-07-04 13:10:00 [facility] [place] Temperature Oral (F) 2017-07-04 13:10:00 98.5 F [facility] Moy Respitory Rate 2017-07-04 12:43:00 Memori al M[place] Weight 2017-06-20 08:10:00 [facility] M[place] BMI Calculated 2017-06-20 08:10:00 Memori al [place] Height 2017-06-20 08:10:00 200.66 cm Memorial [place] Heart Rate 2017-06-20 04:48:00 [facility] Moy Systolic (mm Hg) 2017-06-20 04:48:00 Kiko rial Moy Diastolic (mm Hg) 2017-06-20 04:48:00 Mem orial [place] Respitory Rate 2017-06-20 04:48:00 Memori al [place] Weight 2017-06-19 21:51:00 [facility] Moy BMI Calculated 2017-06-19 21:51:00 Memori al Moy Height 2017-06-19 21:51:00 200.66 cm Memorial [place] Temperature Oral (F) 2017-06-19 21:51:00 98.2 F [facility] Moy Respitory Rate 2017-06-19 21:51:00 Memori al Moy Heart Rate 2017-06-19 21:51:00 [facility] Moy Systolic (mm Hg) 2017-06-19 21:51:00 Kiko rial [place] Diastolic (mm Hg) 2017-06-19 21:51:00 Mem orial [place] Procedures Procedure Date / Time Performed Performing Clinician Sourc e Arthroscopy<sup>1</sup> [facility] M[place] Laminectomy with spinal [facility] [place] fusion Encounters Start End Encounter Admission Attending Care Care Encounter Source Date/Time Date/Time Type Type Clinicians Facility Department ID 2020-11-01 2020-11-01 Out[facility] [id number] 2020-09-18 2020-09-18 [facility] [id number] [facility] 2020-07-18 2020-07-18 [facility] [id number] [facility] 2020-06-14 2020-06-14 Outpatient [facility] [id number] [place] 00:00:00 00:00:[address] 2020-06-09 2020-06-09 Outpatient [facility] [id number] [place] 00:00:00 00:00:[address] 2020-06-09 2020-06-09 Outpatient [facility] [id number] [place] 00:00:00 00:00:[address] 2020-05-29 2020-05-29 [facility] [id number] [place] 00:00:00 00:00:[address] 2020-05-22 2020-05-25 Inpatient [facility] [id number] [place] 00:00:00 00:00:[address] 2020-05-18 2020-05-18 Outpatient [facility] [id number] [place] 00:00:00 00:00:[address] 2020-05-09 2020-05-09 Outpatient [facility] [id number] [place] 00:00:00 00:00:[address] 2020-04-28 2020-04-28 Outpatient [facility] [id number] [place] 00:00:00 00:00:[address] 2020-04-28 2020-04-28 Outpatient [facility] [id number] [place] 00:00:00 00:00:[address] 2020-04-14 2020-04-14 Outpatient MIRIAM [facility] [id number] [place] 00:00:00 00:00:00 CHILO [address] 2020-04-11 2020-04-11 Outpatient T[facility]DY [facility] [id number] [place] 00:00:00 00:00:[address] 2020-04-05 2020-04-05 [facility] [id number] [facility] 16:00[facility]00 16:00:00 [facility] 2020-03-31 2020-03-31 Outpatient TEDDY [facility] [id number] [place] 00:00:00 00:00:[address] 2020-03-17 2020-03-17 Outpatient TEDDY ALLEN [facility] [id number] [place] 00:00:00 00:00:[address] 2020-03-17 2020-03-17 Outpatient TEDDY ALLEN [facility] [id number] [place] 00:00:00 00:00:[address] 2019-10-26 2019-10-26 Outpatient MARTHA KapoorSCHER MHMISCHER [id number] 08:15:00 23:59:59 Torres Chavez 2019-10-26 2019-10-26 Outpatient MARTHA KapoorSCHER MHMISCHER [id number] 08:15:00 08:15:00 Torres Chavez 2019-10-04 2019-10-04 [facility] [id number] [facility] 11:00:00 11:00:00 [facility] 2019-09-27 2019-09-27 [facility] [id number] 11:00:00 11:00:00 [facility] 2018-10-21 2018-10-21 [facility] [id number] [facility] 15:45:00 15:45:00 [facility] 2018-09-17 2018-09-17 [facility] [id number] [facility] 14:35:00 14:35:00 [facility] 2018-06-04 2018-06-04 Outpatient Katie MARTHASCHER MHMISCHER [id number] 09:00:00 09:00:00 Pat 2017-10-02 2017-10-02 Outpatient [facility] [id number] [facility] 14:30:00 14:30:00 [facility]URN[facility] [employer] Call 2017-09-18 2017-09-18 Outpatient Jess KRISTAMISCHER MHMISCHER [id number] 09:45:00 23:59:59 Akbar 02 Trice 2017-09-09 2017-09-09 Outpatient [facility] [id number] [facility] 14:45:00 14:45:00 [facility] [employer] Call 2017-09-05 2017-09-05 Outpatient CYNTHIA Amaral MHSE [id number] 07:48:00 23:59:00 Harita 2017-08-19 2017-08-19 Outpatient [facility] [id number] [facility] 14:00:00 14:00:00 [employer] [employer] 2017-08-12 2017-08-12 Outpatient [facility] [id number] [facility]inic 13:30:00 13:30:00 [facility]URNIS [facility] [employer] Call 2017-08-05 2017-08-05 Outpatient [facility] [id number] [facility]inic 14:30:00 14:30:00 [employer] [employer] 2017-07-22 2017-07-22 Outpatient [facility] [id number] [facility]inic 13:15:00 13:15:00 [facility]URN[facility] [employer] Call 2017-07-14 2017-07-14 Outpatient CYNTHIA Gandhi MHSE [id number] 09:58:00 23:59:00 Colby Gonzalez 2017-06-20 2017-07-04 [facility] [id number] 15:23:00 21:15:00 Pete Cesar 2017-06-19 2017-06-20 [facility] [id number] 16:40:00 00:38:00 Poppy 02 Jennifer Results Test Description Test Time Test Comments Results Result Comments Source CHEM PANEL 2017-07-01 135 [facility]o nn 15:27:00 CHEM PANEL 2017-07-01 13.2 [facility] [place] 15:27:00 HEMATOLOGY 2017-07-01 32.6 [facility] nn 15:27:00 HEMATOLOGY 2017-07-01 15:27:00 Test Item Value Reference Range Interpretation Comme nts MCH (test code = MCH) 26.3 pg 27.0-31.0 [facility] [id number] 15:27:0080.5[facility] HermannHEMATOLOGY 2017-07-01 15:27:0031.2[facility] AyeoezxVOYISUEXXX0915-99-69 15:27:0010.2[facility] NhqcqgpVMZEYAOKYX1391-81-94 15:27:003.87[facility] JzvsjbmMRZXIRIVZT0534-98-45 15:27:007.5[facility] MkrsndxLNOWGUDJEA0172-59-87 15:27:99441Iegrjtfx Moy YEZLJPRHNH0362-17-09 15:27:0014.7[facility] JyaehsiSJUYVVNIMM1648-43-49 15:27:00 4.9[facility] EyrrtieMIUPGWKYLO2342-87-95 15:27:000.2[facility] HermannHEMATOLOGY 2017-07-01 15:27:000.2[facility] NpjujqjXXAUNDNIML1162-12-80 15:27:000.7[facility] GrxeppaCGFKKAQIVU3945-16-59 15:27:003.8[facility] NnmbqboMIAWCGJOUB4932-52-48 15:27:004.9[facility] HfyovgiXXKVEAZXKP6681-56-15 15:27:001.4[facility] [place] CWXKUICUJZ0808-36-87 15:27:003.0[facility] TsejrqpGAOCDVSJWN6039-31-87 15:27:00 29.4[facility] LqucpsxCGCOSYQYZV1569-95-99 15:27:0061.2[facility] HermannCHEM PANEL 2017-07-01 15:27:0088[facility] HermannCHEM ZWLTX7054-29-93 15:27:004.2[facility] HermannCHEM IQJJT4856-33-11 15:27:0096[facility] HermannCHEM OXUXS0419-95-28 15:27:0030[facility] HermannCHEM QAJZL1084-20-17 15:27:008.8[facility] HermannCHEM EHEUH4916-11-82 15:27:36868Vrruseiw HermannCHEM HYNGO6292-40-04 15:27:0012 [facility] HermannCHEM [id number] 15:27:000.95[facility] HermannHEMATOLOGY 2017-06-30 14:00:0014.5[facility] ZiavngnZOGMLPPIFX1763-35-34 14:00:007.2[facility] JtbvsmaECARDSXBNQ8593-81-12 14:00:72146Xtpzbntw GifjpooYQRXPJSAER5366-99-69 14:00:0029.3[facility] SzwruozAIAARMTDGD8041-08-39 14:00:003.59[facility] [place] KYGTNSMEPX3741-30-04 14:00:009.6[facility] TxunvbuMWAHDGGCYL7934-90-67 14:00:005.5 [facility] VbmbapyATRCXOLXSO2897-70-65 14:00:0032.7[facility] HermannHEMATOLOGY 2017-06-30 14:00:0081.5[facility] OcyzavaGYLKSCVKKP5542-01-54 14:00:00 Test Item Value Reference Range Interpretation Comments MCH (test code = MCH) 26.7 pg 27.0-31.0 [facility] WxozpseOJMUWTFJYE9213-20-95 14:00:001.7[facility] HermannHEMATOLOGY 2017-06-30 14:00:000.3[facility] TzimywwGTABDELQDE4477-91-42 14:00:000.2[facility] ZkovshmAIXBJRSXLR4552-92-86 14:00:000.8[facility] UdwpryhZTATTQKMFZ8823-59-15 14:00:003.2[facility] FxeepczLTTILDJBHL7258-15-94 14:00:005.9[facility] Moy HPTYUHTVOR4203-22-18 14:00:003.0[facility] LxdwresELAVTVKTMF6017-35-23 14:00:00 31.6[facility] KtpwbqzMCGYXAOXVF3611-56-45 14:00:0058.7[facility] HermannCHEM PANEL 2017-06-28 10:55:70280Olbbkqvh HermannCHEM UEDZP7167-89-80 10:55:0010.3[facility] HermannCHEM LJXBO0192-98-71 10:55:006.3[facility]CHE[facility] DHDCY8009-29-40 10:55:0099[facility]annCHEM EYGIB9364-92-74 10:55:000.54[facility]annCHE[facility] KTQIA8760-33-70 10:55:007[facility]CHE[facility] XOHAO8645-82-38 10:55:34756 [facility] BSCAD7708-04-07 10:55:003.3[facility]annCHEM PANEL 2017-06-28 10:55:0023[facility]annCHE[facility] DBGUZ6153-27-14 10:55:88484Ocbhahux LhrymknUNKBYHJOEV4751-83-37 10:55:007.3[facility] GwywhcjXSUUZJJCLM5064-30-37 10:55:003.18[facility] OzpxjbjENOTJNTICG3239-79-26 10:55:11784Nipmrxim Moy SWCRNYGEGF5430-81-64 10:55:0014.7[facility] DwsvqnzXXGKWXHUNB0380-07-43 10:55:00 7.5[facility] EmkrmntSUOANNPBZZ5327-54-40 10:55:0026.0[facility]annHEMATOLOGY 2017-06-28 10:55:008.5[facility] NgqzcmmIWDBNFSDYR0797-94-27 10:55:0081.9[facility] RxmddntRVCOZPXVYJ0900-69-49 10:55:00 Test Item Value Reference Range Interpretation Comments MCH (test code = MCH) 26.8 pg 27.0-31.0 [facility] XfgkzlpNPVGLMNKHP0366-90-18 10:55:0032.8[facility]annHEMATOLOGY 2017-06-28 10:55:000.5[facility] ZqezzkbMZPGRTCHFO2161-03-44 10:55:000.3[facility] SaojwvhMZXLZLZOCI1308-04-68 10:55:001.0[facility] RsoytrpGAGZRPDRYQ9416-51-50 10:55:005.9[facility] UehrbatXMXGKCXIEH0073-40-42 10:55:000.1[facility] [place] AJNMTUSPPV9315-62-43 10:55:001.3[facility] NygzwrxCZMRBZWWEQ8823-29-46 10:55:00 80.5[facility] JjbdqyeBPSYIBJCVI6234-86-88 10:55:003.9[facility]annHEMATOLOGY 2017-06-28 10:55:0013.8[facility]annBLOOD BANK LGCXPZY7221-23-58 14:20:00 Negative (06/27/17 9:20 AM)[facility] PQZAN0119-32-49 23:15:002.9 [facility] RGVRV6514-37-29 23:15:002.5[facility]annCHEM PANEL 2017-06-26 23:15:0095[facility] NISLB5680-12-40 23:15:0028[facility]annCHE[facility] RVKWN9974-02-69 23:15:008.5[facility]CHE[facility] QXUJQ0562-28-96 23:15:0043[facility] XHVCC7103-68-85 23:15:0026[facility] JGVGC8671-61-07 23:15:002.1[facility] UPRYO3106-24-82 23:15:007.2 [facility] FRMDP6802-08-36 23:15:000.2[facility]annCHEM PANEL 2017-06-26 23:15:38077Tefbqfzy HermannCHEM PNIGX5316-39-15 23:15:001.00[facility]annCHE[facility] MISEE5392-17-83 23:15:26257Wwmiiczz HermannCHEM GMDHG5910-76-70 23:15:56691Fjzfilmj HermannCHEM OMCTY0500-21-47 23:15:004.1[facility]CHE[facility] CCMUV6140-33-88 23:15:009[facility] ZDHJH8130-79-04 23:15:49704 [facility] ZIAWL6067-32-67 23:15:0011.1[facility]annCHEM PANEL 2017-06-26 23:15:009[facility]annCHE[facility] OHBJI6535-25-91 23:15:000.4[facility]annCHE[facility] TLHLS9081-78-21 23:15:005.1[facility] ZsqnzqiMEYGSJATNI0162-94-08 23:15:001.12[facility] XbnqfxaTODFTMZTTC1894-34-26 23:15:00 Test Item Value Reference Range Interpretation Comments PT (test code = PT) 14.6 s 12.0-14.7 [facility] SpzyuhcXCRQAEEEXX7412-17-27 23:15:000.1[facility]annHEMATOLOGY 2017-06-24 10:39:000.1[facility]annCHEM PJSGW6977-06-20 16:20:002.7[facility] SzrwobsCBZRRTGWQA0881-74-09 16:20:000.1[facility]annCHE[facility] CSZDM7031-38-50 12:48:001.56[facility] EjpkvdpFZMEKEJKRY3121-82-12 04:06:0016.3[facility] CHEM HERQI3462-29-70 09:49:002.6[facility] GqqrhpsSELPMQDIDK4143-27-24 09:49:00 Clumped (06/21/17 4:49 AM)[facility] JbxqrhcCPOYUKNJXI1417-51-62 09:49:0097[facility] HermannCARDIAC OQECAKQ7796-65-43 21:14:84449Ahvzpows HermannCARDIAC ENZYMES 2017-06-20 21:14:000.8[facility]annCARDIAC BDUYHRA6907-96-00 21:14:00<0.02 [facility]annCARDIAC JAIRSWT1691-65-89 21:14:000.5[facility] HermannIMMUNOLOGY 2017-06-20 21:14:64254.0[facility]annCARDIAC FXDPKGJ4768-47-38 16:51:000.9 [facility]annCARDIAC HCBLOFX8009-91-66 16:51:00<0.02[facility] CARDIAC ZECOCYA8191-76-30 16:51:0095[facility]annCARDIAC RHLDLND0679-85-78 13:33:000.7[facility]annCARDIAC KAISWKU8182-11-82 13:33:000.7[facility] [place] CARDIAC UUZFZFF1962-02-28 13:33:00<0.02[facility]annCARDIAC ENZYMES 2017-06-20 13:33:98574Geikflrt HermannCHEM RPQMR2154-86-02 13:33:001.3[facility]annCHEM GXWAB1696-04-57 13:33:77401Bajshxyu HermannCHEM EYSYX1924-31-75 13:33:000.7[facility]annCHEM JFRVS3496-04-49 13:33:0055[facility]annCHE[facility] HSHDA8195-19-16 13:33:0040[facility]annCHE[facility] SAWSQ4337-63-01 13:33:004.9 [facility] JXWQD1640-62-90 13:33:003.2[facility]annCHEM PANEL 2017-06-20 13:33:008.1[facility]annCHE[facility] HWPRS6518-20-24 13:33:0017[facility]annURINE AND UTGJW4521-62-63 04:49:00Negative (06/19/17 11:49 PM)[facility] UHLBV4081-28-48 04:49:00 Test Item Value Reference Range Interpretation Comments UA pH (test code = UA pH) 6.0 1 5.0-8.0 [facility] OGKHD7573-38-62 04:49:00Clear (06/19/17 11:49 PM) [facility] TGNAF3238-34-32 04:49:00<=1.005 *NA*(06/19/17 11:49 PM)[facility] ZJHBS5979-37-15 04:49:00Yellow *NA*(06/19/17 11:49 PM)[facility] CKQXF3570-81-79 04:49:00None Seen (06/19/17 11:49 PM)[facility] EZBPS5718-72-23 04:49:00None Seen (06/19/17 11:49 PM)[facility] AETJW0834-36-51 04:49:00Negative (06/19/17 11:49 PM) [facility] NGYON9138-53-40 04:49:00None Seen (06/19/17 11:49 PM) [facility] ZXOFI1451-25-20 04:49:00Negative (06/19/17 11:49 PM) [facility] KSRHT5758-90-02 04:49:00Negative (06/19/17 11:49 PM) [facility] ZYXHE4798-41-26 04:49:000.2[facility] IDKGN3988-74-33 04:49:00Negative *NA*(06/19/17 11:49 PM)[facility] WIFPV3573-65-38 04:49:00Negative *NA*(06/19/17 11:49 PM)[facility] EZPHL5941-75-42 04:49:00Negative (06/19/17 11:49 PM)[facility]annCHEM PANEL 2017-06-20 04:31:0017[facility]annCHEM HSMZI5077-87-79 04:31:005.3[facility]annCHEM IFWTD8885-34-56 04:31:000.6[facility]annCHEM FOMRO3559-15-35 04:31:009.5[facility]annCHEM XMFOW1343-49-27 04:31:0012[facility]annCHEM AZBUH7230-01-33 04:31:0086[facility]annCHEM LJYJT7269-52-00 04:31:000.4 [facility] KMGYV6614-29-04 04:31:008.5[facility]annCHEM PANEL 2017-06-20 04:31:0094[facility]annCHEM OOQPJ3644-77-64 04:31:0030[facility]annCHEM VPPZA8383-04-62 04:31:008.8[facility]annCHEM RQSOO0545-30-01 04:31:0048[facility]annCHEM AIXDH1238-15-24 04:31:003.2[facility]annCHEM FXSIQ0180-18-95 04:31:74487Rktyqodk HermannCHEM EUKGV6426-59-49 04:31:004.5 [facility]CHE[facility] HEMQA3943-89-08 04:31:0019[facility]annCHEM PANEL 2017-06-20 04:31:54155Teekazyk HermannCHEM NTSBH7325-12-30 04:31:001.09[facility]annCHEM HIRNM6228-13-31 04:31:04226Nozslxdn SylzclkEIKJCBXRKZ4490-25-48 04:31:00Normal (06/19/17 11:31 PM)[facility] MlnnmtwDFWJNONDUZ4827-43-31 04:31:00 Normal (06/19/17 11:31 PM)[facility] PcuvlnoMEUCYMRJTS3757-49-34 04:31:0074.0 [facility] FrcaesbBPXLOUKYFT7075-33-66 04:31:0012.6[facility] HermannHEMATOLOGY 2017-06-20 04:31:005.0[facility] KskouctXYYKDORAVI4920-19-04 04:31:0013.0[facility] HpooimsSQJIYNMXYY0943-64-56 04:31:007.0[facility] NxtkgcdIYAHCLOUXD8785-85-98 04:31:001.0[facility] ObokujaBFIWGQRJVL4033-59-04 04:31:000.8[facility] [place] HYGIKPIEMJ7923-90-17 04:31:002.0[facility] QbeitwuRUKCMXPDGJ1926-16-17 04:31:00 37.7[facility] YpqryptYWSXYJCRAP2684-68-97 04:31:0080.7[facility] HermannHEMATOLOGY 2017-06-20 04:31:0032.5[facility] XnoghleOBHLFJBSHN0857-64-24 04:31:00 Test Item Value Reference Range Interpretation Comments MCH (test code = MCH) 26.2 pg 27.0-31.0 [facility] ThbjxlgHBYMPYIBLE5970-90-68 04:31:0014.3[facility] HermannHEMATOLOGY 2017-06-20 04:31:007.9[facility] YjljeofQNPPYPPBFQ5456-22-65 04:31:55309Uesdtwpq KhbhlsoTSTXDCCIED1029-48-45 04:31:0012.2[facility] GstiqvoRTFSXBAINA8191-27-94 04:31:004.67[facility] PljpytjBLVAKNYGBZ2155-48-00 04:31:0015.5[facility] [place] MOLECULAR PFCPXFBTHI1134-45-41 04:31:00Not Detected (06/19/17 11:31 PM)[facility]annMOLECULAR QTLLKVVLFU8577-93-88 04:31:00Not Detected (06/19/17 11:31 PM) [facility]annMOLECULAR OBJCYQXOAQ5396-58-35 04:31:00Not Detected (06/19/17 11:31 PM)[facility]annMOLECULAR LTOKGXYFZR9528-55-49 04:31:00Not Detected (06/19/17 11:31 PM)[facility]annMOLECULAR IWGWNKUVGW1985-06-20 04:31:00Not Detected (06/19/17 11:31 PM)[facility]annMOLECULAR BCEIPMTJSL1623-48-22 04:31:00Not Detected (06/19/17 11:31 PM)[facility]annMOLECULAR DIAGNOSTIC 2017-06-20 04:31:00Detected *ABN*(06/19/17 11:31 PM)[facility]annMOLECULAR WJFUSYJPSQ2773-77-78 04:31:00Not Detected (06/19/17 11:31 PM)[facility] MOLECULAR FBICRECMBT4959-72-62 04:31:00Not Detected (06/19/17 11:31 PM)[facility]annMOLECULAR PSZHLNVAUS8924-99-56 04:31:00Detected *ABN*(06/19/17 11:31 PM) [facility]annMOLECULAR JASPSXTJIA2145-61-80 04:31:00Not Detected (06/19/17 11:31 PM)[facility]annMOLECULAR JPPCYQACSW9691-58-61 04:31:00Not Detected (06/19/17 11:31 PM)[facility]annMOLECULAR LDYOXNTKXW3481-89-25 04:31:00Not Detected (06/19/17 11:31 PM)[facility]annMOLECULAR FMOKBIOWQQ5219-74-89 04:31:00Not Detected (06/19/17 11:31 PM)[facility] DIAGNOSTIC 2017-06-20 04:31:00Not Detected (06/19/17 11:31 PM)[facility]
[2021-01-23] MEDS ORDERED: NA CHLORIDE 0.9% 1,000 ML ONE (22:32)
[2021-01-23 22:39] LABS: Absolute Lymphocytes (CBC) 0.5 K/uL (0.7-4.9); Basophils % 0.4 % (0-1.3); Hematocrit 39.3 % (39.6-49.0); MPV 8.8 fL (7.6-11.3); RBC Red Blood Cell Count 4.84 M/uL (4.33-5.43)
[2021-01-23 23:00] LABS: Urine Blood Negative (Negative); Urine Glucose 2+ (Negative); Urine Protein Negative (Negative); Urine pH 5.5 (5.0-7.0)
[2021-01-23 23:05] LABS: Protime INR 1.04
[2021-01-23 23:07] LABS: ALT/SGPT 33 U/L (12-78); AST/SGOT 13 U/L (15-37); Albumin 3.2 g/dL (3.4-5.0); Alkaline Phosphatase 84 U/L (45-117); BUN Blood Urea Nitrogen 34 mg/dL (7-18); Bicarbonate 26 mmol/L (21-32); Bilirubin Direct < 0.1 mg/dL (0-0.2); Bilirubin Total 0.3 mg/dL (0.2-1.0); Lipase 88 U/L (73-393); Magnesium 2.3 mg/dL (1.8-2.4); NT PRO-BNP 37 pg/mL (<125); Potassium 5.4 mmol/L (3.5-5.1); Protein, Total 7.3 g/dL (6.4-8.2); Sodium Level 134 mmol/L (136-145); Troponin (Emerg Dept Use Only) < 0.02 ng/mL (0.0-0.045)
[2021-01-23 23:09] LABS: Glucose Level 440 mg/dL (74-106)
--- NOTE | 2021-01-23 23:31 | ER ---
Nurse's Notes [facility] Name: Rica Ribeiro Jr Age: 60 yrs Sex: Male : 1960 Arrival Date: 01/23/2021 Time: 21:38 Bed 20 [facility] MD: Diagnosis: Other viral pneumonia-COVID 19;Type 2 diabetes mellitus-UNCONTROLLED;Unspecified kidney failure-ACUTE;Hyperkalemia Presentation: 01/23 21:38 Chief complaint: Patient states: On prednisone. States his blood sugar has been ll1 500-400's today. No N/V/D. Coronavirus screen: Client denies travel out of the [place] in the last 14 days. Coronavirus screen: Client presents with at least one sign or symptom that may indicate coronavirus-19. Standard/surgical mask placed on the client. Client reports previous positive COVID test result. Ebola Screen: Patient denies travel to an Ebola-affected area in the 21 days before illness onset. Initial Sepsis Screen: Does the patient meet any 2 criteria? No. Patient's initial sepsis screen is negative. Does the patient have a suspected source of infection? No. Patient's initial sepsis screen is negative. Risk Assessment: Do you want to hurt yourself or someone else? Patient reports no desire to harm self or others. Onset of symptoms was January 23, 2021. 21:38 Method Of Arrival: Ambulatory ll1 21:38 Acuity: ALTAF 2 ll1 Historical: - Allergies: 21:41 NKA; ll1 - PMHx: 21:41 blood clots DVT; Diabetes - NIDDM; Hyperlipidemia; neuropathy; staph infection; ll1 - PSHx: 21:41 Knee surgery; back surgery; thoracic surgery; ll1 - Immunization history:: Flu vaccine is not up to date. - Social history:: Smoking status: Patient denies any tobacco usage or history of. - Family history:: not pertinent. Screenin:34 Abuse screen: Denies threats or abuse. Nutritional screening: No deficits noted. vg1 Tuberculosis screening: No symptoms or risk factors identified. Fall Risk No fall in past 12 months (0 pts). No secondary diagnosis (0 pts). IV access (20 points). Ambulatory Aid- None/Bed Rest/Nurse Assist (0 pts). Gait- Normal/Bed Rest/Wheelchair (0 pts) Mental Status- Oriented to own ability (0 pts). Total Kitchen Fall Scale indicates No Risk (0-24 pts). Assessment: 22:17 General: Appears in no apparent distress. comfortable, Behavior is calm, cooperative. vg1 Pain: Denies pain. Neuro: Level of Consciousness is awake, alert, obeys commands, Oriented to person, place, time, situation. Cardiovascular: Patient's skin is warm and dry. Respiratory: Airway is patent Respiratory effort is even, unlabored. GI: Patient currently denies diarrhea, nausea, vomiting. : No signs and/or symptoms were reported regarding the genitourinary system. EENT: No signs and/or symptoms were reported regarding the EENT system. Derm: Skin is intact, is healthy with good turgor. Musculoskeletal: Circulation, motion, and sensation intact. 23:44 Reassessment: Patient appears in no apparent distress at this time. No changes from vg1 previously documented assessment. Patient and/or family updated on plan of care and expected duration. Pain level reassessed. Patient is alert, oriented x 3, equal unlabored respirations, skin warm/dry/pink. 01/24 00:30 Reassessment: Patient appears in no apparent distress at this time. No changes from sf previously documented assessment. Patient and/or family updated on plan of care and expected duration. Pain level reassessed. Patient is alert, oriented x 3, equal unlabored respirations, skin warm/dry/pink. Patient denies pain at this time. Patient states symptoms have improved. 01:26 Reassessment: Patient appears in no apparent distress at this time. No changes from sf previously documented assessment. Patient and/or family updated on plan of care and expected duration. Pain level reassessed. Patient is alert, oriented x 3, equal unlabored respirations, skin warm/dry/pink. 02:39 Reassessment: Patient appears in no apparent distress at this time. No changes from sf previously documented assessment. Patient and/or family updated on plan of care and expected duration. Pain level reassessed. Patient is alert, oriented x 3, equal unlabored respirations, skin warm/dry/pink. Patient moved to hospital bed in ER room 20 per request. Vital Signs: 01/23 21:38 BP 124 / 77; Pulse 81; Resp 18; Temp 97.4; Pulse Ox 99% ; Weight 127.01 kg; Height 6 ll1 ft. 8 in. (203.20 cm); Pain 0/10; 22:17 BP 124 / 92; Pulse 73; Resp 14; Pulse Ox 99% on R/A; vg1 22:30 BP 114 / 73; Pulse 64; Resp 18; Pulse Ox 100% on R/A; vg1 23:42 BP 128 / 76; Pulse 60; Resp 14; Pulse Ox 100% on R/A; vg1 04/07 00:45 BP 109 / 72; Pulse 55; Resp 16; Pulse Ox 96% ; sf 01:00 BP 106 / 64; Pulse 54; Resp 18; Pulse Ox 97% ; sf 02:33 BP 119 / 66; Pulse 50; Resp 18; Pulse Ox 96% ; sf 04 21:38 Body Mass Index 30.76 (127.01 kg, 203.20 cm) ll1 Vitals: 00:45 Cardiac Rhythm Assessment Sinus isac. sf 01:00 Cardiac Rhythm Assessment Sinus isac. ED Course: 01/23 21:38 Patient arrived in ED. ll1 21:40 Triage completed. ll1 21:42 Arm band placed on. ll1 21:48 Jeff Cruz MD is Attending Physician. maría 22:07 Ceci Garza, RN is Primary Nurse. vg1 22:32 Initial lab(s) drawn, by dc, sent to lab. EKG done, by ED staff, reviewed by Jeff Cruz MD. Inserted saline lock: 20 gauge in left antecubital area, using aseptic technique. Blood collected. 22:34 Patient has correct armband on for positive identification. Bed in low position. Call 1 light in reach. Side rails up X 1. 22:50 XRAY Chest (1 view) In Process Unspecified. EDMS 23:28 Akbar Marquez is Hospitalizing Provider. maría 01/24 00:10 Report given to SAMEERA Biggs. 1 04:19 Primary Nurse role handed off by Ceci Garza, SAMEERA mw2 07:19 Eliot Keyes, SAMEERA is Primary Nurse. jl7 Administered Medications: 01/23 22:35 Drug: NS 0.9% 500 ml Route: IV; Rate: bolus; Site: left antecubital; vg1 23:06 Follow up: IV Status: Completed infusion; IV Intake: 500ml vg1 23:06 Drug: NS 0.9% 1000 ml Route: IV; Rate: 125 ml/hr; Site: left antecubital; vg1 23:35 Drug: Insulin Regular Human 10 units {Co-Signature: collin (Kalyan Parmar RN).} Route: vg1 IVP; Site: left antecubital; 01/24 00:30 Follow up: Response: No adverse reaction; Blood sugar is lowered sf 01/23 23:36 Drug: Insulin Regular Human 10 units {Co-Signature: collin (Kalyan Parmar RN).} Route: vg1 Sub-Q; Site: left upper abdomen; 01/24 00:30 Follow up: Response: No adverse reaction; Blood sugar is lowered 01/23 23:37 Drug: NS 0.9% 500 ml Route: IV; Rate: bolus; Site: left antecubital; vg1 01/24 00:10 Follow up: IV Status: Completed infusion; IV Intake: 500ml vg1 Intake: 01/23 23:06 IV: 500ml; Total: 500ml. vg1 01/24 00:10 IV: 500ml; Total: 1000ml. vg1 Outcome: 01/23 23:30 Decision to Hospitalize by Provider. [facility] 01/24 13:57 Patient left the ED. jl7 Signatures: Dispatcher [employer] Jeff Haines MD MD cha Leal, Jahala, RN RN jl7 Barry Ackerman 2 Ceci Garza RN RN vg1 Michelle Parker RN SAMEERA 1 Kalyan Parmar RN RN sf Kalyan polanco
--- NOTE | 2021-01-23 23:31 | EDPHYS ---
Physician Documentation [facility] Name: Rica Ribeiro Jr Age: 60 yrs Sex: Male : 1960 Arrival Date: 01/23/2021 Time: 21:38 Bed 20 Private MD: ED Physician Jeff Cruz HPI: 01/23 21:56 This 60 yrs old Black Male presents to ER via Ambulatory with complaints of High Blood maría Sugar. 21:56 The patient or guardian reports hyperglycemia, that was potentially precipitated by maría decadron. Onset: The symptoms/episode began/occurred yesterday. Associated signs and symptoms: Pertinent positives: polydipsia. Current symptoms: In the emergency department the patient's symptoms are unchanged from the initial presentation, despite home interventions. The patient has experienced similar episodes in the past, several times. Historical: - Allergies: 21:41 NKA; ll1 - PMHx: 21:41 blood clots DVT; Diabetes - NIDDM; Hyperlipidemia; neuropathy; staph infection; ll1 - PSHx: 21:41 Knee surgery; back surgery; thoracic surgery; ll1 - Immunization history:: Flu vaccine is not up to date. - Social history:: Smoking status: Patient denies any tobacco usage or history of. - Family history:: not pertinent. ROS: 21:56 Constitutional: Negative for fever, chills, and weight loss, Eyes: Negative for injury, maría pain, redness, and discharge, ENT: Negative for injury, pain, and discharge, Neck: Negative for injury, pain, and swelling, Cardiovascular: Negative for chest pain, palpitations, and edema, Respiratory: Negative for shortness of breath, cough, wheezing, and pleuritic chest pain, Abdomen/GI: Negative for abdominal pain, nausea, vomiting, diarrhea, and constipation, Back: Negative for injury and pain, : Negative for injury, bleeding, discharge, and swelling, MS/Extremity: Negative for injury and deformity, Skin: Negative for injury, rash, and discoloration, Neuro: Negative for headache, weakness, numbness, tingling, and seizure, Psych: Negative for depression, anxiety, suicide ideation, homicidal ideation, and hallucinations, Allergy/Immunology: Negative for hives, rash, and allergies, Endocrine: Negative for neck swelling, polydipsia, polyuria, polyphagia, and marked weight changes, Hematologic/Lymphatic: Negative for swollen nodes, abnormal bleeding, and unusual bruising. Exam: 21:59 Constitutional: This is a well developed, well nourished patient who is awake, alert, maría and in no acute distress. Head/Face: Normocephalic, atraumatic. Eyes: Pupils equal round and reactive to light, extra-ocular motions intact. Lids and lashes normal. Conjunctiva and sclera are non-icteric and not injected. Cornea within normal limits. Periorbital areas with no swelling, redness, or edema. ENT: Nares patent. No nasal discharge, no septal abnormalities noted. Tympanic membranes are normal and external auditory canals are clear. Oropharynx with no redness, swelling, or masses, exudates, or evidence of obstruction, uvula midline. Mucous membranes moist. Neck: Trachea midline, no thyromegaly or masses palpated, and no cervical lymphadenopathy. Supple, full range of motion without nuchal rigidity, or vertebral point tenderness. No Meningismus. Chest/axilla: Normal chest wall appearance and motion. Nontender with no deformity. No lesions are appreciated. Cardiovascular: Regular rate and rhythm with a normal S1 and S2. No gallops, murmurs, or rubs. Normal PMI, no JVD. No pulse deficits. Respiratory: Lungs have equal breath sounds bilaterally, clear to auscultation and percussion. No rales, rhonchi or wheezes noted. No increased work of breathing, no retractions or nasal flaring. Abdomen/GI: Soft, non-tender, with normal bowel sounds. No distension or tympany. No guarding or rebound. No evidence of tenderness throughout. Back: No spinal tenderness. No costovertebral tenderness. Full range of motion. Male : Normal genitalia with no discharge or lesions. Skin: Warm, dry with normal turgor. Normal color with no rashes, no lesions, and no evidence of cellulitis. MS/ Extremity: Pulses equal, no cyanosis. Neurovascular intact. Full, normal range of motion. Neuro: Awake and alert, GCS 15, oriented to person, place, time, and situation. Cranial nerves II-XII grossly intact. Motor strength 5/5 in all extremities. Sensory grossly intact. Cerebellar exam normal. Normal gait. Psych: Awake, alert, with orientation to person, place and time. Behavior, mood, and affect are within normal limits. 22:33 ECG was reviewed by the Attending Physician. [facility] Vital Signs: 21:38 BP 124 / 77; Pulse 81; Resp 18; Temp 97.4; Pulse Ox 99% ; Weight 127.01 kg; Height 6 ll1 ft. 8 in. (203.20 cm); Pain 0/10; 22:17 BP 124 / 92; Pulse 73; Resp 14; Pulse Ox 99% on R/A; vg1 22:30 BP 114 / 73; Pulse 64; Resp 18; Pulse Ox 100% on R/A; vg1 23:42 BP 128 / 76; Pulse 60; Resp 14; Pulse Ox 100% on R/A; vg1 04 00:45 BP 109 / 72; Pulse 55; Resp 16; Pulse Ox 96% ; sf 01:00 BP 106 / 64; Pulse 54; Resp 18; Pulse Ox 97% ; sf 02:33 BP 119 / 66; Pulse 50; Resp 18; Pulse Ox 96% ; sf 01/23 21:38 Body Mass Index 30.76 (127.01 kg, 203.20 cm) ll1 MDM: 01/23 21:48 Patient medically screened. [facility] 21:59 Differential diagnosis: DKA, hyperglycemia. Data reviewed: vital signs, nurses notes, [facility] lab test result(s), EKG, radiologic studies, plain films. Data interpreted: threat monitoring analyst: rate is 81 beats/min, rhythm is regular. Test interpretation: by ED physician or midlevel provider: ECG, plain radiologic studies. Counseling: I had a detailed discussion with the patient and/or guardian regarding: the historical points, exam findings, and any diagnostic results supporting the discharge/admit diagnosis, lab results. 01/23 21:56 Order name: Basic Metabolic Panel [facility] 01/23 21:56 Order name: CBC with Diff [facility] 01/23 21:56 Order name: LFT's [facility] 01/23 21:56 Order name: Magnesium [facility] 01/23 21:56 Order name: NT PRO-BNP; Complete Time: 23:15 [facility] 01/23 21:56 Order name: PT-INR; Complete Time: 23:15 [facility] 01/23 21:56 Order name: Troponin (emerg Dept Use Only); Complete Time: 23:15 [facility] 01/23 21:56 Order name: Lipase; Complete Time: 23:15 [facility] 01/23 21:57 Order name: Basic Metabolic Panel; Complete Time: 23:15 EDMS 01/23 21:57 Order name: CBC with Automated Diff; Complete Time: 22:53 EDCT 01/23 21:57 Order name: Liver (Hepatic) Function; Complete Time: 23:15 EDMS 01/23 21:57 Order name: Magnesium; Complete Time: 23:15 EDMS 01/23 23:00 Order name: Urine Dipstick-Ancillary; Complete Time: 23:15 EDCT 01/24 00:42 Order name: Glucose, Ancillary Testing EDMS 01/23 21:56 Order name: XRAY Chest (1 view) [facility] 01/23 21:56 Order name: EKG; Complete Time: 21:57 [facility] 01/23 21:56 Order name: Cardiac monitoring; Complete Time: 22:35 [facility] 01/24 02:51 Order name: Glucose, Ancillary Testing EDMS 01/24 04:08 Order name: SARS-COV-2 RT PCR EDMS 01/24 05:44 Order name: CBC with Automated Diff EDMS 01/24 06:03 Order name: Comprehensive Metabolic Panel EDCT 01/24 06:10 Order name: Glucose, Ancillary Testing EDMS 01/24 08:36 Order name: Glucose, Ancillary Testing EDMS 01/24 11:59 Order name: Glucose, Ancillary Testing EDCT 01/23 21:56 Order name: EKG - Nurse/Tech; Complete Time: 22:35 [facility] 01/23 21:56 Order name: IV Saline Lock; Complete Time: 22:35 [facility] 01/23 21:56 Order name: Labs collected and sent; Complete Time: 22:35 [facility] 01/23 21:56 Order name: O2 Per Protocol; Complete Time: 22:10 [facility] 01/23 21:56 Order name: O2 Sat Monitoring; Complete Time: 22:10 [facility] 01/23 21:56 Order name: Urine Dipstick-Ancillary (obtain specimen); Complete Time: 22:09 [facility] EC:33 Rate is 61 beats/min. Rhythm is regular. QRS [place] is Normal. [place] interval is normal. QRS maría interval is normal. QT interval is normal. No Q waves. T waves are Normal. No ST changes noted. Clinical impression: NSR w/ Non-specific ST/T Changes and No evidence of ischemia. Interpreted by me. Reviewed by me. Administered Medications: 22:35 Drug: NS 0.9% 500 ml Route: IV; Rate: bolus; Site: left antecubital; vg1 23:06 Follow up: IV Status: Completed infusion; IV Intake: 500ml vg1 23:06 Drug: NS 0.9% 1000 ml Route: IV; Rate: 125 ml/hr; Site: left antecubital; vg1 23:35 Drug: Insulin Regular Human 10 units {Co-Signature: collin (Kalyan Parmar RN).} Route: vg1 IVP; Site: left antecubital; 01/24 00:30 Follow up: Response: No adverse reaction; Blood sugar is lowered 01/23 23:36 Drug: Insulin Regular Human 10 units {Co-Signature: collin (Kalyan Parmar RN).} Route: vg1 Sub-Q; Site: left upper abdomen; 01/24 00:30 Follow up: Response: No adverse reaction; Blood sugar is lowered 01/23 23:37 Drug: NS 0.9% 500 ml Route: IV; Rate: bolus; Site: left antecubital; vg1 01/24 00:10 Follow up: IV Status: Completed infusion; IV Intake: 500ml vg1 Disposition: 01/23/21 23:30 Hospitalization ordered by Akbar Marquez for Observation. Preliminary diagnosis are Other viral pneumonia - COVID 19, Type 2 diabetes mellitus - UNCONTROLLED, Unspecified kidney failure - ACUTE, Hyperkalemia. - Bed requested for [facility] ER HOLD. - Status is Observation. jl7 - Condition is Fair. - Problem is new. - Symptoms have improved. Signatures: Dispatcher [employer] Jeff Haines MD MD cha Garcia, Cindy, RN RN cg Eliot Keyes RN RN jl7 Ceci Garza RN RN vg1 Michelle Parker RN RN 1 Kalyan Parmar RN sf Kalyan Parmar RN sf Corrections: (The following items were deleted from the chart) 01:00 01/23 23:30 Hospitalization Ordered by Akbar Marquez for Observation. Preliminary cg diagnosis is Other viral pneumonia - COVID 19; Type 2 diabetes mellitus - UNCONTROLLED; Unspecified kidney failure - ACUTE; Hyperkalemia. Bed requested for Telemetry/MedSurg (observation). Status is Observation. Condition is Fair. Problem is new. Symptoms have improved. [facility] 01/24 02:25 01:05 CORONAVIRUS+MR.LAB.BRZ ordered. EDMS EDMS 13:57 01:00 01/23/2021 23:30 Hospitalization Ordered by Akbar Marquez for Observation. jl7 Preliminary diagnosis is Other viral pneumonia - COVID 19; Type 2 diabetes mellitus - UNCONTROLLED; Unspecified kidney failure - ACUTE; Hyperkalemia. Bed requested for [facility] ER HOLD. Status is Observation. Condition is Fair. Problem is new. Symptoms have improved. cg
[2021-01-23] MEDS ORDERED: INSULIN -REGULAR HUMAN 50 UNIT/0.5 ML ML ONE (23:42)
[2021-01-23] MEDS ORDERED: NA CHLORIDE 0.9% 500 ML ONE (23:43)
[2021-01-24 03:21] VITALS: BMI 30.7
[2021-01-24] MEDS ORDERED: ACETAMINOPHEN 500 MG TAB PO PRN (03:21)
[2021-01-24] MEDS ORDERED: NA CHLORIDE 0.9% 1,000 ML IV SCH (03:21)
[2021-01-24] MEDS ORDERED: ONDANSETRON 4 MG/2 ML VIAL IV PRN (03:21)
[2021-01-24 04:03] VITALS: TEMP 97.6
[2021-01-24] MEDS ORDERED: NA CHLORIDE 0.9% 1,000 ML ONE ×2 (04:23→13:37)
--- NOTE | 2021-01-24 04:51 | P.HP ---
Certification for Inpatient Patient admitted to: Observation With expected LOS: <2 Midnights Patient will require the following post-hospital care: None Practitioner: I am a practitioner with admitting privileges, knowledge of patient current condition, hospital course, and medical plan of care. Services: Services provided to patient in accordance with Admission requirements found in Title 42 Section 412.3 of the Code of Federal Regulations <Jerry Newman Alison - Last Filed: 01/24/21 04:46> Patient History Date of Service: 01/23/21 Reason for admission: hyperglycemia 2/2 steroid use History of Present Illness: Mr. Ribeiro is a 60 yo male with HTN, HLD, DM here with hyperglycemia to 515. He was recently discharged with COVID pneumonia 4 days ago on home O2, dexamethasone 4mg BID and insulin 70/30. He says his breathing improved and he stopped using home O2 one day after being released. He has been taking the steroids for the past 4 days and says he's only supposed to take them for 7 days. He kept checking is BG and it kept increasing and he was unable to control it with the insulin. He says it was in the 400s all day, and when it increased to 515 he decided to come in. He says he 'felt like his sugar was high' but is otherwise asymptomatic. At baseline, he only takes metformin at home and well controlled prior to COVID admission. Na 134. K 5.4. BUN 34. Cr 1.32. GFR 67. (at baseline, Cr 0.9, GFR >90). Glu 440. Urine 2+ glucose. No AGMA. - Past Medical/Surgical History Diabetic: Yes -: chronic pain syndrome -: neuropathy -: staph infection May 2017 -: HTN -: HLD -: DM -: h/o DVT x2 on Xarelto -: L knee replacement surgery February 2017 -: I & D September 2018 -: back surgery - Family History Mother -: Other (see notes) Notes: evelyne's dse Father -: Other (see notes) Notes: aneurysm - Social History Smoking Status: Former smoker Alcohol use: No CD- Drugs: No Caffeine use: No Place of Residence: Home <TrentJerry Rosas - Last Filed: 01/24/21 04:46> Date of Service: 01/24/21 <guillermina jarvis - Last Filed: 01/24/21 13:20> Allergies No Known Drug Allergies Allergy (Verified 10/15/18 10:02) Unknown N Allergy (Uncoded 06/15/17 23:59) Unknown No Known Allergy (Uncoded 06/12/17 09:10) Unknown No Known Allerg Allergy (Uncoded 02/06/17 01:49) Unknown Home Medications: Hydrocodone/Acetaminophen [Hydrocodone-Acetamin 10-325 mg] 1 tab PO QID 10/15/18 Diazepam [Valium] 5 mg PO DAILY PRN 01/12/21 Pregabalin 200 mg PO TID 01/12/21 Rivaroxaban [Xarelto] 10 mg PO DAILY 01/12/21 Tizanidine [Zanaflex*] 4 mg PO DAILY 01/12/21 Tizanidine [Zanaflex*] 8 mg PO BEDTIME 01/12/21 Trazodone HCl 100 mg PO BEDTIME 01/12/21 Cholecalciferol (Vitamin D3) [Vitamin D 1000 Iu Tab*] 4,000 unit PO DAILY 30 Days #120 tab 01/19/21 Thiamine HCl [Vitamin B-1*] 200 mg PO DAILY 30 Days #60 tablet 01/19/21 Zinc Sulfate [Zinc Sulfate*] 220 mg PO DAILY 30 Days #30 cap 01/19/21 dexAMETHasone [Decadron*] 4 mg PO SEECOM 14 Days #21 tab 01/19/21 Insulin 70/30 NPH/Reg Human [Novolin 70/30*] 20 unit SQ BID 30 Days #10 ml 01/24/21 Review of Systems 10-point ROS is otherwise unremarkable <Jerry Newman S - Last Filed: 01/24/21 04:46> Physical Examination - Vital Signs Temperature: 97.6 F Blood Pressure: 122/61 Pulse: 44 Respirations: 16 Pulse Ox (%): 96 - Physical Exam General: Alert, In no apparent distress, Oriented x3, Cooperative HEENT: Atraumatic, Normocephalic, PERRLA, Mucous membr. moist/pink Neck: Supple, 2+ carotid pulse no bruit, JVD not distended, No Thyromegaly, No LAD Respiratory: Clear to auscultation bilaterally, Normal air movement Cardiovascular: No edema, Normal pulses, Regular rate/rhythm, Normal S1 S2, No gallops, No rubs, No murmurs Capillary refill: <2 Seconds Gastrointestinal: Normal bowel sounds, Soft and benign, Non-distended, No ascites, No tenderness, No masses, No rebound, No guarding Musculoskeletal: No clubbing, No swelling, No contractures, No erythema, No tenderness, No warmth Integumentary: No rashes, No breakdown, No significant lesion, No tend erness/swelling, No erythema, No warmth, No cyanosis Neurological: Normal gait, Normal speech, Normal strength at 5/5 x4 extr, Normal tone, Sensation intact, Cranial nerves 3-12 intact, Normal affect Lymphatics: No axilla or inguinal lymphadenopathy - Studies Laboratory Data (last 24 hrs) 01/23/21 22:29: PT 12.0, INR 1.04 01/23/21 22:29: WBC 4.50 D, Hgb 12.4 L, Hct 39.3 L, Plt Count 187 01/23/21 22:29: Sodium 134 L, Potassium 5.4 H, BUN 34 H, Creatinine 1.32 H, Glucose 440 H*, Magnesium 2.3, Total Bilirubin 0.3, AST 13 L, ALT 33, Alkaline Phosphatase 84, Lipase 88 <Jerry Newman - Last Filed: 01/24/21 04:46> - Studies Laboratory Data (last 24 hrs) 01/23/21 22:29: PT 12.0, INR 1.04 01/23/21 22:29: WBC 4.50 D, Hgb 12.4 L, Hct 39.3 L, Plt Count 187 01/23/21 22:29: Sodium 134 L, Potassium 5.4 H, BUN 34 H, Creatinine 1.32 H, Glucose 440 H*, Magnesium 2.3, Total Bilirubin 0.3, AST 13 L, ALT 33, Alkaline Phosphatase 84, Lipase 88 <guillermina jarvis - Last Filed: 01/24/21 13:20> Assessment and Plan - Problems (Diagnosis) (1) Steroid-induced hyperglycemia Current Visit: Yes Status: Acute (2) SI[place] (acute kidney injury) Current Visit: Yes Status: Acute (3) Pneumonia due to COVID-19 virus Current Visit: No Status: Resolved (4) Chronic pain syndrome Onset Date: 10/16/18 Current Visit: No Status: Chronic (5) Diabetes mellitus Current Visit: No Status: Chronic Qualifiers: Diabetes mellitus type: type 2 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 use: unspecified assisted insulin use status Diabetes mellitus complication status: without complication Qualified Code(s): E11.9 - Type 2 diabetes mellitus without complications (6) History of DVT (deep vein thrombosis) Current Visit: No Status: Chronic (7) Hyperlipidemia Current Visit: No Status: Chronic Qualifiers: Hyperlipidemia type: unspecified Qualified Code(s): E78.5 - Hyperlipidemia, unspecified - Plan BG as improved since admission but still elevated, q6hr accuchecks and sliding scale insulin will recheck BMP in the AM, likely K will improved with insulin and SIOMARA will improve with fluids patient will likely be able to be discharged home today with improvement will reconcile home medications Discharge Plan: Home Plan to discharge in: 24 Hours - Advance Directives Does patient have a Living Will: No Does patient have a Durable POA for Healthcare: No - Code Status/Comfort Care Code Status Assessed: Yes (full code) Critical Care: No Time Spent Managing Pts Care (In Minutes): 70 <Jerry Newman - Last Filed: 01/24/21 04:46> Physician Review: Patient Assessed, Agree with Above Assessment and Plan Physician Review Additional Text: Steroid induced hyperglycemia. Continue home insulin regimen. Insulin sliding scale. Readjust [id number]. <guillermina jarvis - Last Filed: 01/24/21 13:20>
[2021-01-24 05:24] LABS: Absolute Lymphocytes (CBC) 0.9 K/uL (0.7-4.9); Basophils % 0.6 % (0-1.3); Hematocrit 36.2 % (39.6-49.0); Lymphocytes % 21.3 % (15.3-44.8); MPV 8.9 fL (7.6-11.3); RBC Red Blood Cell Count 4.51 M/uL (4.33-5.43)
[2021-01-24 05:51] LABS: ALT/SGPT 27 U/L (12-78); AST/SGOT 10 U/L (15-37); Albumin 2.9 g/dL (3.4-5.0); Alkaline Phosphatase 76 U/L (45-117); BUN Blood Urea Nitrogen 25 mg/dL (7-18); Bicarbonate 27 mmol/L (21-32); Bilirubin Total 0.4 mg/dL (0.2-1.0); Glucose Level 264 mg/dL (74-106); Potassium 5.2 mmol/L (3.5-5.1); Protein, Total 6.7 g/dL (6.4-8.2); Sodium Level 138 mmol/L (136-145)
[2021-01-24] MEDS: INSULIN -REGULAR HUMAN 50 UNIT/0.5 ML ML SQ SCH ×2 (06:00→12:00)
[2021-01-24] MEDS ORDERED: ACETAMINOPHEN 500 MG TAB ONE (06:24)
[2021-01-24] MEDS ORDERED: INSULIN -REGULAR HUMAN 50 UNIT/0.5 ML ML ONE ×3 (06:25→12:25)
[2021-01-24] MEDS ORDERED: INSULIN -REGULAR HUMAN 50 UNIT/0.5 ML ML SQ SCH (07:30)
--- NOTE | 2021-01-24 07:41 | RAD REPORT ---
EXAM DESCRIPTION: Venkat Single View01/23/2021 10:50 pm CLINICAL HISTORY: Cough COMPARISON: January 18, 2021 FINDINGS: Mild bilateral pulmonary opacities appear mildly improved. Heart is normal size IMPRESSION: Mild improvement in a mild bilateral pneumonia
[2021-01-24] MEDS ORDERED: INSULIN -REGULAR HUMAN 50 UNIT/0.5 ML ML SQ ONE (09:00)
[2021-01-24 09:13] VITALS: BP 156/86
[2021-01-24] MEDS ORDERED: D50W 25 GM/50 ML SYRINGE IV PRN (09:20)
[2021-01-24] MEDS ORDERED: GLUCAGON 1 MG/VIAL IM PRN (09:20)
[2021-01-24] MEDS: HYDROCODONE/APAP 10/325 TAB PO SCH ×2 (10:18→13:00)
[2021-01-24] MEDS ORDERED: PREGABALIN 50 MG CAP PO SCH (10:18)
[2021-01-24] MEDS ORDERED: PREGABALIN 150 MG CAP PO ONE ×2 (11:23→13:36)
[2021-01-24] MEDS ORDERED: PREGABALIN 50 MG CAP ONE ×2 (11:23→13:36)
[2021-01-24] MEDS ORDERED: HYDROCODONE/APAP 10/325 TAB ONE ×2 (11:24→13:37)
--- NOTE | 2021-01-24 12:47 | EKG ---
Test Date: 2021-01-23 Test Time: 22:20:35 Field Associate: SHUBHAM MEASUREMENT RESULTS: Intervals: Rate: 61 NE: 144 QRSD: 92 QT: 384 QTc: 386 [place]: P: 55 NE: 144 QRS: -49 T: 5 INTERPRETIVE STATEMENTS: Normal sinus rhythm Left axis deviation Abnormal ECG Compared to ECG 01/16/2021 09:29:14 Sinus bradycardia no longer present Sinus arrhythmia no longer present Electronically Signed On 01-24-21 12:45:25 CDT by Miguelito Flores
--- NOTE | 2021-01-24 13:24 | P.DS ---
Admission Date: 01/24/21 Discharge Date: 01/24/21 Disposition: ROUTINE DISCHARGE Discharge Condition: FAIR Reason for Admission: hyperglycemia 2/2 steroid use - Problems (1) Steroid-induced hyperglycemia Current Visit: Yes Status: Acute (2) COVID-19 Current Visit: No Status: Acute (3) Obesity (BMI 30.0-34.9) Onset Date: 10/16/18 Current Visit: No Status: Acute (4) History of DVT (deep vein thrombosis) Current Visit: No Status: Chronic Brief History of Present Illness: 60-year-old to recently hospitalized for COVID pneumonia and discharged 4 days ago with oral dexamethasone, oxygen therapy and insulin therapy presented to the emergency department because of high blood sugar readings. His blood sugar level had improved to the 200s during the assessment in the ED. Patient was not requiring oxygen. He stated he weaned off oxygen 3 days ago. Patient was placed under observation for further management. Hospital Course: Patient blood sugar was in the low 200s here in the hospital stay. He was medically managed with insulin sliding scale. Novolin 70/30 is titrated up to 20 units b.i.d. to better control his blood pressure. He may need to come off insulin therapy once he completes steroid therapy. Vital Signs/Physical Exam: Temp Pulse Resp BP Pulse Ox 97.6 F 53 15 156/86 H 99 01/24/21 12:00 01/24/21 12:00 01/24/21 12:00 01/24/21 12:00 01/24/21 12:00 General: Alert, In no apparent distress, Oriented x3 Neck: JVD not distended Respiratory: Other (Nonlabored breathing) Cardiovascular: No edema, Regular rate/rhythm Gastrointestinal: Soft and benign, Non-distended Musculoskeletal: No swelling Integumentary: No rashes Neurological: Other (No focal motor deficit.) Laboratory Data at Discharge: WBC 4.30 K/uL (4.3-10.9) 01/24/21 05:00 Hgb 11.6 g/dL (13.6-17.9) L 01/24/21 05:00 Hct 36.2 % (39.6-49.0) L 01/24/21 05:00 Plt Count 164 K/uL (152-406) 01/24/21 05:00 PT 12.0 SECONDS (9.5-12.5) 01/23/21 22:29 INR 1.04 01/23/21 22:29 Sodium 138 mmol/L (136-145) 01/24/21 05:00 Potassium 5.2 mmol/L (3.5-5.1) H 01/24/21 05:00 BUN 25 mg/dL (7-18) H 01/24/21 05:00 Creatinine 0.98 mg/dL (0.55-1.3) 01/24/21 05:00 Glucose 264 mg/dL (74-106) H 01/24/21 05:00 Magnesium 2.3 mg/dL (1.8-2.4) 01/23/21 22:29 Total Bilirubin 0.4 mg/dL (0.2-1.0) 01/24/21 05:00 AST 10 U/L (15-37) L 01/24/21 05:00 ALT 27 U/L (12-78) 01/24/21 05:00 Alkaline Phosphatase 76 U/L (45-117) 01/24/21 05:00 Lipase 88 U/L (73-393) 01/23/21 22:29 Home Medications: Hydrocodone/Acetaminophen [Hydrocodone-Acetamin 10-325 mg] 1 tab PO QID 10/15/18 Diazepam [Valium] 5 mg PO DAILY PRN 01/12/21 Pregabalin 200 mg PO TID 01/12/21 Rivaroxaban [Xarelto] 10 mg PO DAILY 01/12/21 Tizanidine [Zanaflex*] 4 mg PO DAILY 01/12/21 Tizanidine [Zanaflex*] 8 mg PO BEDTIME 01/12/21 Trazodone HCl 100 mg PO BEDTIME 01/12/21 Cholecalciferol (Vitamin D3) [Vitamin D 1000 Iu Tab*] 4,000 unit PO DAILY 30 Days #120 tab 01/19/21 Thiamine HCl [Vitamin B-1*] 200 mg PO DAILY 30 Days #60 tablet 01/19/21 Zinc Sulfate [Zinc Sulfate*] 220 mg PO DAILY 30 Days #30 cap 01/19/21 dexAMETHasone [Decadron*] 4 mg PO SEECOM 14 Days #21 tab 01/19/21 Insulin 70/30 NPH/Reg Human [Novolin 70/30*] 20 unit SQ BID 30 Days #10 ml 01/24/21 New Medications: Insulin 70/30 NPH/Reg Human [Novolin 70/30*] 20 unit SQ BID 30 Days #10 ml Diet: ADA Activity: Ad kimmie Followup: Ziggy Andrew MD [ACTIVE - CAN ADMIT] - 1 Week Deepthi Hull NP [Primary Care Provider] -
[2021-01-24] MEDS ORDERED: ETODOLAC 500 MG PO SCH (21:00)
[2021-01-24] MEDS ORDERED: TRAZODONE 50 MG TABLET PO SCH (21:00)
[2021-01-24] MEDS ORDERED: TIZANIDINE 4 MG TABLET PO SCH (21:00)
[2021-01-25] MEDS ORDERED: ZINC SULFATE 220 MG CAP PO SCH (09:00)
[2021-01-25] MEDS ORDERED: RIVAROXABAN 10 MG TABLET PO SCH (09:00)
[2021-01-25] MEDS ORDERED: THIAMINE HCL 100 MG TABLET PO SCH (09:00)
[2021-01-25] MEDS ORDERED: VITAMIN D 1000 UNIT TAB PO SCH (09:00)
[2021-01-25] MEDS ORDERED: TIZANIDINE 4 MG TABLET PO SCH (10:18)
== END 2021-01-24 13:58 | disposition home or self-care (01) ==
LOC: ER 21:28 → ERHOLD 01-24 00:52
PROVIDERS: ADMIT Internal Medicine; ATTEND Internal Medicine
DX: E11.65 Type 2 diabetes mellitus with hyperglycemia (principal); U07.1 COVID-19; E66.9 Obesity, unspecified; Z86.718 Personal history of other venous thrombosis and embolism; E11.40 Type 2 diabetes mellitus with diabetic neuropathy, unspecified; T38.0X5A Adverse effect of glucocorticoids and synthetic analogues, initial encounter; R94.31 Abnormal electrocardiogram [ECG] [EKG]; I10 Essential (primary) hypertension; E78.5 Hyperlipidemia, unspecified; Z96.652 Presence of left artificial knee joint; Z87.891 Personal history of nicotine dependence; N17.9 Acute kidney failure, unspecified; J12.82 Pneumonia due to coronavirus disease 2019; G89.4 Chronic pain syndrome; Z79.4 Long term (current) use of insulin; Z68.30 Body mass index [BMI] 30.0-30.9, adult
CPT/HCPCS: 36415; 71045; 80048; 80053; 80076; 81003; 82947; 83690; 83735; 83880; 84484; 85025; 85610; 93005; 96361; 96372; 96374; 99284; G0378; J7030; J7040; U0003

== ENCOUNTER 2022-08-28 11:01 | Emergency (ER) | payer OTHER ==
--- OUTSIDE RECORDS SUMMARY | 2022-08-28 11:18 | XMS REPORT | Continuity of Care Document ---
:1960 Author Organization [facility] t Address [address] [place] [address] Care Team Providers Name Role Phone DARRON BANUELOS Primary Care Physician Unavailable Deepthi Hull Attending Clinician Unavailable DARRON BANUELOS Attending Clinician Unavailable Ulysses Eldridge Attending Clinician Unavailable Sushant Sotomayor Attending Clinician Unavailable JOEY Attending Clinician Unavailable Darron Banuelos MD Attending Clinician Radiology Attending Clinician Unavailable RADIOLOGY Attending Clinician Unavailable Praveena Nagel Attending Clinician Nereida Solares RN Attending Clinician Unavailable COLIN FOX Attending Clinician Unavailable Debbie Lay MA Attending Clinician Unavailable Teddy Allen MD Attending Clinician Amanda Newman MA Attending Clinician Unavailable Elsie Muller NP Attending Clinician Yaw Pa Attending Clinician Marly Morales APRN Attending Clinician MD TEDDY ALLEN Attending Clinician Unavailable Jessica Yee MD Attending Clinician MD CHILO PINEDA Attending Clinician Unavailable CHILO PINEDA Attending Clinician Unavailable Pat Wilson Attending Clinician Akbar Mercado Attending Clinician Lorrie Amaral Attending Clinician Colby Gandhi Attending Clinician Daron Bartholomew Attending Clinician Poppy Lua Attending Clinician [phone] Grupo Barton Admitting Clinician Unavailable JOEY Admitting Clinician Unavailable ALIZA VALENCIA Admitting Clinician Unavailable PRAVEENA NAGEL Admitting Clinician Unavailable TEDDY ALLEN Admitting Clinician Unavailable MD TEDDY ALLEN Admitting Clinician Unavailable Daron Bartholomew Admitting Clinician Payers Payer Name Policy Type Policy Number Effective Date Expiration Date Alison wright CIGNA II [id number] 2016 00:00:00 MEDICARE PART A [id number] 2016 \\T\\ B 00:00:00 MEDICARE MB [id number] 2016 [facility] NOVITAS 00:00:00 - [facility] CIGNA C1 [id number] 2015 [facility] 00:00:00 - [facility] MEDICARE MB [id number] 2016 [facility] NOVITAS 00:00:00 - [facility] MEDICARE MB [id number] 2016 [facility] NOVITAS 00:00:00 [facility] MEDICARE MB [id number] 2016 [facility] NOVITAS 00:00:00 - [facility] Problems Condition Condition Condition Status Onset Resolution Last Treating Co mments Source Name Details Category Date Date Treatment Clinician Date Arthritis Arthritis Disease Active Met hodi of right of right 06-30 st knee knee 00:00: Hospita 00 l S/P lumbar S/P lumbar Disease Active M ethodi fusion fusion - st 00:00: Hospita 00 l Knee Knee Disease Active Methodi stiffness, stiffness, 5-25 st left left 00:00: Hospita 00 l Mechanical Mechanical Disease Active M ethodi complicati complicati 8-03 st on of knee on of knee 00:00: Ho spita prosthesis prosthesis 00 l Pain due Pain due Disease Active Metho di to total to total 7-11 st left knee left knee 00:00: Hosp marc replacemen replacemen 00 l t t Knee Knee Disease Active Overview: Method i stiff, stiff, 03-[address] right right 00:00: g of this Hospita 00 note l might be different from the original. Added automatic ally from request for surgery [id number] Stiffness Stiffness Disease Active Overview: Methodi of left of left 03-[address] knee, not knee, not 00:00: g of this H ospita elsewhere elsewhere 00 note l classified classified might be different from the original. Added automatic ally from request for surgery [id number] Pain in Pain in Disease Active Methodi left tibia left tibia 07-17 st 00:00: Hospita 00 l Mechanical Mechanical Disease Active M ethodi loosening loosening 03-17 st of of 00:00: Hospita internal internal 00 l left knee left knee prosthetic prosthetic joint joint Status Status Disease Active Methodi post post 30 st revision revision 00:00: Hospit a of total of total 00 l replacemen replacemen t of left t of left knee knee Anterior Anterior Disease Active Metho di knee pain, knee pain, 4-30 st left left 00:00: Hospita 00 l Infection Infection Disease Active Met hodi following following 4-30 st a a 00:00: Hospita procedure, procedure, 00 l deep deep incisional incisional surgical surgical site, site, subsequent subsequent encounter encounter G06.2 G06.2 Diagnosis Active 2016-102017-09-05 Mem oria Active 10-26 07:56:00 l 08/26/2017 00:00: Tomer hoffman 00 [facility] XRAY Diagnosis Active 2017-07-14 Mem oria Active 07-14 09:59:00 l 07/14/2017 09:59: Tomer hoffman 00 [facility] BACK PAIN BACK PAIN Diagnosis Active 2017-07-15 Memoria Active 06-19 22:02:00 l 06/19/2017 00:00: Tomer hoffman [place] [address] [facility] 724.2 724.2 Diagnosis Active 2015-07-17 Mem oria Active 05-24 17:22:00 l 05/24/2015 00:00: Tomer hoffman [address] 724.2 724.2 Diagnosis Active 2015-06-19 Mem oria ACUTE LOW ACUTE LOW 05-09 15:38:00 l BACK PAIN BACK PAIN 00:00: Tiff tyson Active 00 05/09/2015 [facility] No known No known Disease Unive rs active active ity of problems problems [facility] Chronic Chronic Problem Resolve 2022-02-14 M emoria back pain back pain d 21:44:14 l (disorder) (disorder) He rmann Resolved Problem 02/14/2022 [facility] Diabetes Diabetes Problem Resolve 2022-02-14 Memoria mellitus mellitus d 21:44:14 l (disorder) (disorder) He rmann Resolved Problem 02/14/2022 [facility] Hypertensi Problem Resolve 2022-02-14 Memoria ve Hypertensi d 21:44:14 l disorder, ve [place] systemic disorder, arterial systemic (disorder) arterial (disorder) Resolved Problem 02/14/2022 [facility] DM DM Problem Active 2017-10-29 Memor ia (diabetes (diabetes 03:45:29 l mellitus) mellitus) Herm jah Active Problem 10/29/2017 [facility] Staphyloco Staphyloc Diagnosis Active 2017-10-29 Memoria ccus occus 03:45:29 l aureus aureus [employer] bacteremia bacteremia with with sepsis sepsis Active Diagnosis 10/29/2017 [facility] Abscess in Abscess Diagnosis Active 2017-10-29 Memoria epidural in 03:45:29 l space of epidural Tomer hoffman thoracic space of spine thoracic spine Active Diagnosis 10/29/2017 [facility] Local Local Diagnosis Active 2017-09-10 Mem oria infection infection 03:45:50 l of the of the [place] skin and skin and subcutaneo subcutaneo us tissue, us tissue, unspecifie unspecifie d d Active Diagnosis 09/10/2017 [facility] Abrasion Abrasion Diagnosis Active 2017-09-10 Memoria of right of right 03:45:50 l front wall front wall He rmann of thorax, of thorax, subsequent subsequent encounter encounter Active Diagnosis 09/10/2017 [facility] Osteomyeli Osteomyel Problem Active 2017-10-29 Memoria tis itis 03:45:29 l Active [employer] Problem 10/29/2017 [facility] Sepsis Sepsis Problem Active 2017-10-29 Kiko madelin Active 03:45:29 l Problem [employer] 10/29/2017 [facility] Bacteremia Problem Active 2017-10-29 M emoria Bacteremia 03:45:29 l Active [place] Problem 10/29/2017 [facility] HTN HTN Problem Active 2017-10-29 Memor ia (hypertens (hypertens 03:45:29 l ion) ion) M[place] Active Problem 10/29/2017 [facility] Epidural Epidural Problem Active 2017-10-29 Memoria abscess abscess 03:45:29 l Active [place] Problem 10/29/2017 [facility] Chronic Chronic Problem Active 2017-10-29 M emoria back pain back pain 03:45:29 l Active [employer] Problem 10/29/2017 [facility] Simple Simple Problem Active 2022-02-14 Kiko madelin obesity obesity 21:44:14 l (disorder) (disorder) He rmann Active Problem 02/14/2022 [facility] DORSALGIA, DORSALGIA Diagnosis Active 2017-07-15 Memoria UNSPECIFIE , 22:02:00 l D UNSPECIFIE Tomer n D Active [facility] Beriberi Beriberi Problem Active 2022-02-14 Memoria neuropathy neuropathy 21:44:14 l (disorder) (disorder) He rmann Active Problem 02/14/2022 [facility] Lumbar Lumbar Problem Active 2022-02-14 Kiko madelin radiculopa radiculopa 21:44:14 l thy thy [employer] (disorder) (disorder) Active Problem 02/14/2022 [facility] Peripheral Periphera Problem Active 2022-02-14 Memoria nerve l nerve 21:44:14 l disease disease [place] (disorder) (disorder) Active Problem 02/14/2022 [facility] Cervical Cervical Problem Active 2022-02-14 Memoria radiculopa radiculopa 21:44:14 l thy thy [place] (disorder) (disorder) Active Problem 02/14/2022 [facility] Thyroid Thyroid Problem Active 2022-02-14 M abelria nodule nodule 21:44:14 l (disorder) (disorder) He rmann Active Problem 02/14/2022 [facility] [id number] Sleep Problem Active [facility] e - [facility] [id number] Other Problem Active Common chronic [facility] pain - [facility] [id number] Body mass Problem Active Com mon index Spirit (BMI) of - [facility] 32.0-32.9 [facility] in [facility] [id number] Type 2 Problem Active Common diabetes Spirit mellitus - [facility] with other [facility]3] y Medical complicati Center on, without long-term current use of insulin [id number] Deep vein Problem Active Com mon thrombosis Spirit (DVT) of [facility] femoral St vein [facility] right [facility] lower Center extremity, unspecifie d chronicity [id number] Abnormal Problem Active Comm on PSA [facility] [id number] Elevated Problem Active Comm on PSA [facility] Allergies, Adverse Reactions, Alerts Allergy Allergy Status Severity Reaction(s) Onset Inactive Treating Comm ents Source Name Type Date Date Clinician No Known DA Active U 2021-10 [facility] Allergie 0-11 Clear s 00:00: [facility] No Known DA Active U [facility] Drug 5-15 Clear Allergie 00:00: [facility] morphine DA Active U "MORPHINE [facility] DOESN'T 2-16 Clear WORK" 00:00: [facility] oxycodon DA Active U "PERCOCET [facility] e DOESN'T 2-16 Clear WORK" 00:00: [facility] NO KNOWN Drug Active Univers ALLERGIE Class ity of [facility] [place] [facility] Social History Social Habit Start Date Stop Date Quantity Comments Source History SDOH University o f Alcohol Std Drinks [place] [facility] History SDOR University o f Alcohol Binge [place] [facility] History [facility] o f Alcohol Comment [place] [facility] History of Tobacco [facility] - Use [facility] Exposure to 2022-03-04 2022-03-14 Not sure University of SARS-CoV-2 (event) 00:00:00 10:27:00 [place] [facility] Social History 2021-07-02 2021-07-02 [facility] H ermann 18:46:52 18:46:52 Alcohol intake 2021-04-13 2021-04-13 0 /d [facility] 00:00:00 00:00:00 Hospital Cigarettes smoked 2021-03-13 2021-03-[address] current (pack per 00:00:00 00:00:00 Hospita l day) - Reported Cigarette 2021-03-13 2021-03-13 [facility] pack-years 00:00:00 00:00:00 Hospital Tobacco use and 2021-03-13 2021-03-13 Smokeless [facility] exposure 00:00:00 00:00:00 tobacco non-user Hospital History SDOR 2021-02-06 2021-02-06 1 University o f Alcohol Frequency 00:00:00 00:00:00 [facility] edical [place] Sex Assigned At [birth year] [facility] 00:00:00 00:00:00 Hospital Smoking Status Start Date Stop Date Source Former Smoker 2020-11-01 00:00:00 2020-11-01 00:00:00 [facility] Social History [facility] Medications Ordered Filled Start Stop Current Ordering Indication Dosage Frequency Signature Comments Components Source Medication Medication Date Date Medication? Clinician (SIG) Name Name metFORMIN 2021- No 500mg Take 500 Un david 500 mg 24 5-26 05-26 mg by ity of hr tablet 10:35: 00:00 mouth [place] 19 :00 daily with Medical breakfast. Branch pregabalin Yes 200mg Take 200 Un david 200 mg 5-26 mg by ity of capsule 10:35: mouth 3 [place] 16 (three) Medical times Branch daily. tiZANidine Yes 4mg Take 4 mg Un david 4 mg tablet 5-26 by mouth. ity of 10:35: 1 Tab in [place] 16 AM / 2 Medical Tabs Branch bedtime HYDROcodone Yes 1{tbl} Take 1 Un david -acetaminop 5-26 tablet by ity of hen 10-325 10:35: mouth [place] mg tablet 16 every 6 Medical (six) Branch hours as needed. traZODone Yes trazodone Uni vers 100 mg 5-26 100 mg ity of tablet 10:35: tablet [place] 16 TAKE 1 BY Medical MOUTH Branch EVERY DAY AT BEDTIME rivaroxaban 0 2021- No 1{tbl} 1 tablet Univers (XARELTO) 5-26 05-26 daily. ity of 20 mg 10:35: 00:00 [place] tablet 01 :00 Medical Branch diclofenac Yes 50mg Take 50 mg U nivers 50 mg 5-11 by mouth 2 ity of tablet 00:00: (two) [place] 00 times Medical daily with Branch meals. thiamine 2020-10 Yes 100 mg = 1 Mem oria 100 mg oral 0-12 tab, PO, l tablet 23:58: Daily, X [employer] [employer] day, # 90 tab, 1 Refill(s), Pharmacy: [facility] #[id number], 198.12, cm, 07/31/21 8:26:00 CDT, Height, 129.545, kg, 07/31/21 8:26:00 CDT, Weight thiamine 2020-10 Yes 100 mg = 1 Mem oria 100 mg oral 0-12 tab, PO, l tablet 23:58: Daily, X [place] 90 day, # 90 tab, 1 Refill(s), Pharmacy: [facility] #[id number], 198.12, cm, 07/31/21 8:26:00 CDT, Height, 129.545, kg, 07/31/21 8:26:00 CDT, Weight thiamine 2020-10 Yes 100 mg = 1 Mem oria 100 mg oral 0-12 tab, PO, l tablet 23:58: Daily, X [employer] [employer] 90 day, # 90 tab, 1 Refill(s), Pharmacy: [facility] #[id number], 198.12, cm, 07/31/21 8:26:00 CDT, Height, 129.545, kg, 07/31/21 8:26:00 CDT, Weight thiamine 2020- Yes 100 mg = 1 Mem oria 100 mg oral 0-12 tab, PO, l tablet 23:58: Daily, X [place] 00 day, # 90 tab, 1 Refill(s), Pharmacy: [facility] #[id number], 198.12, cm, 07/31/21 8:26:00 CDT, Height, 129.545, kg, 07/31/21 8:26:00 CDT, Weight tizanidine 2020-0 Yes 4 mg = 1 Mem oria 4 mg oral 9-13 tab, PO, l tablet 19:35: Bedtime, [place] 00 PRN for muscle spasm, # 30 tab, 0 Refill(s) meloxicam 2020-0 Yes 15 mg = 1 Mem oria 15 mg oral 9-13 tab, PO, l tablet 19:35: Daily, # [employer] 00 30 tab, 0 Refill(s) Diclofenac 2020-0 Yes 2 gm, TOP, M emoria Sodium 0.01 9-13 BID, Apply l MG/MG 19:35: to the [employer] Topical Gel 00 affetced areas, # 100 gm, 1 Refill(s) tizanidine 2020-0 Yes 4 mg = 1 Mem oria 4 mg oral 9-13 tab, PO, l tablet 19:35: Bedtime, [place] 00 PRN for muscle spasm, # 30 tab, 0 Refill(s) meloxicam 2020-0 Yes 15 mg = 1 Mem oria 15 mg oral 9-13 tab, PO, l tablet 19:35: Daily, # [place] [employer] [employer] 00 30 tab, 0 Refill(s) Diclofenac 2020-0 Yes 2 gm, TOP, M emoria Sodium 0.01 9-13 BID, Apply l MG/MG 19:35: to the [place] Topical Gel 00 affetced areas, # 100 gm, 1 Refill(s) tizanidine 2020-0 Yes 4 mg = 1 Mem oria 4 mg oral 9-13 tab, PO, l tablet 19:35: Bedtime, [employer] 00 PRN for muscle spasm, # 30 tab, 0 Refill(s) meloxicam 2020-0 Yes 15 mg = 1 Mem oria 15 mg oral 9-13 tab, PO, l tablet 19:35: Daily, # [place] [employer] 00 30 tab, 0 Refill(s) Diclofenac 2020-0 Yes 2 gm, TOP, M emoria Sodium 0.01 -13 BID, Apply l MG/MG 19:35: to the [place] Topical Gel 00 affetced areas, # 100 gm, 1 Refill(s) tizanidine 0 Yes 4 mg = 1 Mem oria 4 mg oral 9-13 tab, PO, l tablet 19:35: Bedtime, [employer] 00 PRN for muscle spasm, # 30 tab, 0 Refill(s) meloxicam 2020-0 Yes 15 mg = 1 Mem oria 15 mg oral 9-13 tab, PO, l tablet 19:35: Daily, # [place] 00 30 tab, 0 Refill(s) Diclofenac 2020-0 Yes 2 gm, TOP, M emoria Sodium 0.01 - BID, Apply l MG/MG 19:35: to the [employer] Topical Gel 00 affetced areas, # 100 gm, 1 Refill(s) pregabalin 0 Yes 200 mg = 1 M emoria 200 mg oral 9-13 cap, PO, l capsule 19:34: TID, # 30 Margo nn 00 cap, 1 Refill(s) Trazodone 2020-0 Yes 100 mg = 1 Me moria Hydrochlori 9-13 tab, PO, l de 100 MG 19:34: TID, # 90 Her perez Oral Tablet 00 tab, 0 Refill(s) pregabalin 2020-0 Yes 200 mg = 1 M emoria 200 mg oral 9-13 cap, PO, l capsule 19:34: TID, # 30 Margo nn 00 cap, 1 Refill(s) Trazodone 2020-0 Yes 100 mg = 1 Me moria Hydrochlori 9-13 tab, PO, l de 100 MG 19:34: TID, # 90 Her perez Oral Tablet 00 tab, 0 Refill(s) pregabalin 2020-0 Yes 200 mg = 1 M emoria 200 mg oral 9-13 cap, PO, l capsule 19:34: TID, # 30 Margo nn 00 cap, 1 Refill(s) Trazodone 2020-0 Yes 100 mg = 1 Me moria Hydrochlori 9-13 tab, PO, l de 100 MG 19:34: TID, # 90 Her perez Oral Tablet 00 tab, 0 Refill(s) pregabalin Yes 200 mg = 1 M emoria 200 mg oral 07-02 cap, PO, l capsule 19:34: TID, # 30 Margo nn 00 cap, 1 Refill(s) Trazodone Yes 100 mg = 1 Me moria Hydrochlori 07-02 tab, PO, l de 100 MG 19:34: TID, # 90 Her perez Oral Tablet 00 tab, 0 Refill(s) meloxicam 2020- No 15mg QD Take 1 Metho di (MOBIC) 15 06-20 tablet (15 st mg tablet 00:00: 05:59 mg total) Ho spita 00 :00 by mouth l daily for 90 days. meloxicam 2020- No 15mg QD Take 1 Metho di (MOBIC) 15 06-20 tablet (15 st mg tablet 00:00: 05:59 mg total) Ho spita 00 :00 by mouth l daily for 90 days. meloxicam 2020- No 15mg QD Take 1 Metho di (MOBIC) 15 06-20 tablet (15 st mg tablet 00:00: 05:59 mg total) Ho spita 00 :00 by mouth l daily for 90 days. meloxicam 2020- No 15mg QD Take 1 Metho di (MOBIC) 15 06-20 tablet (15 st mg tablet 00:00: 05:59 mg total) Ho spita 00 :00 by mouth l daily for 90 days. rivaroxaban Yes 20mg Q2D Take 20 mg Methodi (XARELTO) 03-[address] 20 mg 09:23: every Hospita tablet 15 other day. l PT STATES HE HASN'T TAKEN THIS MEDICATION IN 3 MONTHS. tiZANidine Yes 4 mg in Meth saurabh (ZANAFLEX) 03-[address] 4 MG tablet 09:23: night Hospi ta 15 l pregabalin Yes 200mg Q.[id number] Take 200 Methodi (LYRICA) 03-[id number] 200 MG 09:23: 3D mouth 3 Hospita capsule 15 (three) l times a day. traZODone 2021-0 Yes 100mg QD Take 100 Met hodi (DESYREL) 6-[address] 100 MG 09:23: mouth Hospita tablet 15 nightly. l rivaroxaban 2021-0 Yes 20mg Q2D Take 20 mg Methodi (XARELTO) 6-[address] 20 mg 09:23: every Hospita tablet 15 other day. l PT STATES HE HASN'T TAKEN THIS MEDICATION IN 3 MONTHS. tiZANidine 2021-0 Yes 4 mg in Meth saurabh (ZANAFLEX) 6-[address] 4 MG tablet 09:23: night Hospi ta 15 l pregabalin 2021-0 Yes 200mg Q.[id number] Take 200 Methodi (LYRICA) 6-[id number] 200 MG 09:23: 3D mouth 3 Hospita capsule 15 (three) l times a day. traZODone 2021-0 Yes 100mg QD Take 100 Met hodi (DESYREL) 6-[address] 100 MG 09:23: mouth Hospita tablet 15 nightly. l rivaroxaban 2021-0 Yes 20mg Q2D Take 20 mg Methodi (XARELTO) 6-[address] 20 mg 09:23: every Hospita tablet 15 other day. l PT STATES HE HASN'T TAKEN THIS MEDICATION IN 3 MONTHS. tiZANidine 2021-0 Yes 4 mg in Meth saurabh (ZANAFLEX) 6- am8 mg at st 4 MG tablet 09:23: night Hospi ta 15 l pregabalin 2021-0 Yes 200mg Q.[id number] Take 200 Methodi (LYRICA) 6-[id number] 200 MG 09:23: 3D mouth 3 Hospita capsule 15 (three) l times a day. traZODone 2021-0 Yes 100mg QD Take 100 Met hodi (DESYREL) 6-[address] 100 MG 09:23: mouth Hospita tablet 15 nightly. l rivaroxaban 2021-0 Yes 20mg Q2D Take 20 mg Methodi (XARELTO) 6-[address] 20 mg 09:23: every Hospita tablet 15 other day. l PT STATES HE HASN'T TAKEN THIS MEDICATION IN 3 MONTHS. tiZANidine 0 Yes 4 mg in Meth saurabh (ZANAFLEX) 6- am8 mg at st 4 MG tablet 09:23: night Hospi ta 15 l pregabalin 2020-0 Yes 200mg Q.[id number] Take 200 Methodi (LYRICA) 6- [id number] mg by st 200 MG 09:23: 3D mouth 3 Hospita capsule 15 (three) l times a day. traZODone 2020-0 Yes 100mg QD Take 100 Met hodi (DESYREL) 6- mg by st 100 MG 09:23: mouth Hospita tablet 15 nightly. l gentamicin 2020-0 2021- No [id number] 1[drp] Place 1 Univers 0.3 % 02-06 91 Drop in ity of ophthalmic 00:00: 00:00 [place] eyes [place] drops 00 :00 every 4 Medical (four) Branch hours. cholecalcif 0 Yes 4000U 4,000 Meth saurabh devorah, 4-[address] vitamin D3, 00:00: Hospit a 1,000 unit 00 l tablet cholecalcif 0 Yes 4000U 4,000 Meth saurabh devorah, 4-[address] vitamin D3, 00:00: Hospit a 1,000 unit 00 l tablet cholecalcif 0 Yes 4000U 4,000 Meth saurabh devorah, 4-[address] vitamin D3, 00:00: Hospit a 1,000 unit 00 l tablet cholecalcif 0 Yes 4000U 4,000 Meth saurabh devorah, 4-[address] vitamin D3, 00:00: Hospit a 1,000 unit 00 l tablet etodolac 2020-0 Yes 1{tbl} QD Take 1 Metho di (LODINE) 3-[address] 500 MG 00:00: mouth Hospita tablet 00 daily. l etodolac 2020-0 Yes 1{tbl} QD Take 1 Metho di (LODINE) 3-[address] 500 MG 00:00: mouth Hospita tablet 00 daily. l etodolac 2020-0 Yes 1{tbl} QD Take 1 Metho di (LODINE) 3-[address] 500 MG 00:00: mouth Hospita tablet 00 daily. l etodolac Yes 1{tbl} QD Take 1 Metho di (LODINE) 3-[address] 500 MG 00:00: mouth Hospita tablet 00 daily. l etodolac 2021- No 1 tab Univers 500 mg 01-08-26 every 12 ity of tablet 00:00: 00:00 hours [place] 00 :00 Medical Branch MetFORMIN MetFORMIN Yes Deepthi 1 tablet Common HCl ER HCl ER 04-05 [place] with Spirit 00:00: evening - [facility] 00 meal [facility] MetFORMIN MetFORMIN No 1{table QD MetFORMIN HCl ER 750 HCl ER 750 -17 t_with_ HCl ER 750 MG MG 00:00: evening MG 00 _meal} MetFORMIN MetFORMIN No 1{table QD MetFORMIN HCl ER 750 HCl ER 750 -17 t_with_ HCl ER 750 MG MG 00:00: evening MG 00 _meal} MetFORMIN MetFORMIN No 1{table QD MetFORMIN HCl ER 750 HCl ER 750 -17 t_with_ HCl ER 750 MG MG 00:00: evening MG 00 _meal} MetFORMIN MetFORMIN No 1{table QD MetFORMIN HCl ER 750 HCl ER 750 6-17 t_with_ HCl ER 750 MG MG 00:00: evening MG 00 _meal} metFORMIN 2020- No 1{tbl} QD Take 1 Met hodi XR -05 04- tablet by st (GLUCOPHAGE 00:00: 00:00 mouth Hosp marc -XR) 750 mg 00 :00 daily. l 24 hr tablet Xarelto Xarelto 2018-10 Yes Deepthi 1 tablet Co mmon 11-28 [place] with food Spirit 00:00: - [facility] 00 [facility] Xarelto 20 Xarelto 20 2018-10 No 1{table QD Xarelto 20 MG MG 2- t_with_ MG 00:00: food} Xarelto 20 Xarelto 20 2018-10 No 1{table QD Xarelto 20 MG MG 2- t_with_ MG 00:00: food} 00 Xarelto 20 Xarelto 20 2018-10 No 1{table QD Xarelto 20 MG MG 2- t_with_ MG 00:00: food} 00 Xarelto 20 Xarelto 20 2019- No 1{table QD Xarelto 20 MG MG 2-09 t_with_ MG 00:00: food} 00 HYDROcodone 2017-10 Yes 1{tbl} Q4H Take 1 Me thodi -acetaminop 2-[address] hen ([facility]) 00:00: mouth Hospi ta 10-325 mg 00 every 4 l per tablet (four) hours as needed. HYDROcodone 2017-10 Yes 1{tbl} Q4H Take 1 Me thodi -acetaminop 2-[address] hen ([facility]) 00:00: mouth Hospi ta 10-325 mg 00 every 4 l per tablet (four) hours as needed. HYDROcodone 2017-10 Yes 1{tbl} Q4H Take 1 Me thodi -acetaminop 2-[address] hen ([facility]) 00:00: mouth Hospi ta 10-325 mg 00 every 4 l per tablet (four) hours as needed. HYDROcodone 2017-10 Yes 1{tbl} Q4H Take 1 Me thodi -acetaminop 2-[address] hen ([facility]) 00:00: mouth Hospi ta 10-325 mg 00 every 4 l per tablet (four) hours as needed. Opana ER 2017-0 Yes [facility] (Schedule Memoria 1-10 Garza II Drug) l 03:45: TAKE 1 [employer] 29 TABLET BY MOUTH EVERY 12 HOURS FOR PAIN Cefazolin 2017-0 Yes [facility] not Kiko madelin in D5W -10 [facility]za defined l 03:45: [place] 29 Meloxicam 2018-0 Yes [facility] TK 1 T PO Memoria 1-10 [facility] BID l 03:45: [place] 29 Lisinopril 2018-0 Yes [facility] TK 1 T PO Memoria 1-10 [facility] QD l 03:45: [place] 29 Cyclobenzap 2018-0 Yes [facility] TK 1 T PO Memoria rine HCl 1-10 [facility]za Q 8 H PRN l 03:45: MUSCLE [place] 29 SPASMS Gabapentin 2017-0 Yes [facility] TAKE 1 M emoria 1-10 [facility] TABLET BY l 03:45: MOUTH 3 [place] 29 TIMES A DAY FOR 30 DAYS Hydrocodone 2018-0 Yes [facility] (Schedule Memoria -Acetaminop 1-10 [facility] Drug) l hen 03:45: TAKE 1 [employer] 29 TABLET BY MOUTH EVERY 6 HOURS NEEDED FOR PAIN Xarelto 2018-0 Yes [facility] TK 1 T PO M emoria 1-10 [facility]za Q 24 HOURS l 03:45: FOR 13 [place] 29 DAYS Methocarbam 2018-0 Yes [facility] TAKE 1 TO Memoria ol 1-10 [facility] 2 TABLETS l 03:45: BY MOUTH [employer] 29 EVERY 8 HOURS NEEDED FOR MUSCLE SPASM 5 DAYS Duexis 2018-0 Yes [facility] TAKE 1 Memor ia 1-10 [facility] TABLET BY l 03:45: MOUTH 3 [employer] 29 TIMES A DAY FOR 30 DAYS Metformin 2017-0 Yes [facility] TK 1 T PO Memoria HCl 1-10 [facility]za BID l 03:45: [employer] 29 Atorvastati 2017-0 Yes [facility] TK 1 T PO Memoria n Calcium 1-10 Garza QD l 03:45: [employer] [facility] [facility] Oxymorphone 2017-0 Yes Soto (Schedule Memoria HCl 1-10 Garza II Drug) l 03:45: TAKE 1 [employer] [facility] [facility] TABLET BY MOUTH EVERY 6 HOURS NEEDED FOR PAIN Warfarin 2017-0 Yes Soto TK 1 T PO Memoria Sodium 1-10 Garza NIGHT l 03:45: BEFORE [employer] [facility] [facility] SURGERY Rifampin 2017-0 Yes Soto 1 capsule Memoria 1-10 Garza l 03:45: [employer] [facility] [facility] Doxycycline 2018-0 Yes Soto 1 capsule Memoria Hyclate 1-10 Garza l 03:45: [facility] 29 Keflex 2018-0 Yes Soto 1 tablet Mem oria 1-10 Garza l 03:45: [facility] 29 Opana ER 2018-0 Yes Soto (Schedule Memoria 1-10 Agrza II Drug) l 03:45: TAKE 1 [employer] [facility] TABLET BY MOUTH EVERY 12 HOURS FOR PAIN Cefazolin 2018-0 Yes Soto not Kiko madelin in D5W 1-10 Garza defined l 03:45: [facility] 29 Meloxicam 2017-0 Yes Soto TK 1 T PO Memoria 1-10 Garza BID l 03:45: [employer] [facility] [facility] Lisinopril 2018-0 Yes Soto TK 1 T PO Memoria 1-10 Garza QD l 03:45: [facility] 29 Cyclobenzap 2018-0 Yes Soto TK 1 T PO Memoria rine HCl 1-10 Garza Q 8 H PRN l 03:45: MUSCLE [employer] [facility] [facility] SPASMS Gabapentin 2018-0 Yes Soto TAKE 1 M emoria 1-10 Gazra TABLET BY l 03:45: MOUTH 3 [facility] 29 TIMES A DAY FOR 30 DAYS Hydrocodone 2018-0 Yes Soto (Schedule [facility]oria -Acetaminop 1-10 Garza II Drug) l hen 03:45: TAKE 1 [employer] [facility] [facility] TABLET BY MOUTH EVERY 6 HOURS NEEDED FOR PAIN Xarelto 2018-0 Yes Soto TK 1 T PO M emoria 1-10 Garza Q 24 HOURS l 03:45: FOR 13 [facility] 29 DAYS Methocarbam 2017-0 Yes Soto TAKE 1 TO Memoria ol 1-10 Garza 2 TABLETS l 03:45: BY MOUTH [facility] 29 EVERY 8 HOURS NEEDED FOR MUSCLE SPASM 5 DAYS Duexis 2018-0 Yes Soto TAKE 1 Memor ia 1-10 Garza TABLET BY l 03:45: MOUTH 3 [facility] 29 TIMES A DAY FOR 30 DAYS Metformin 2018-0 Yes Soto TK 1 T PO Memoria HCl 1-10 Garza BID l 03:45: [facility] 29 Atorvastati 2018-0 Yes Soto TK 1 T PO Memoria n Calcium 1-10 Garza QD l 03:45: [facility] 29 Oxymorphone 2018-0 Yes Soto (Schedule Memoria HCl 1-10 Garza II Drug) l 03:45: TAKE 1 [facility] 29 TABLET BY MOUTH EVERY 6 HOURS NEEDED FOR PAIN Warfarin 2018-0 Yes Soto TK 1 T PO Memoria Sodium 1-10 Garza NIGHT l 03:45: BEFORE [employer] [facility] [facility] SURGERY Rifampin 2018-0 Yes Soto 1 capsule Memoria 1-10 Garza l 03:45: [facility] 29 Doxycycline 2018-0 Yes Soto 1 capsule Memoria Hyclate 1-10 Garza l 03:45: [facility] 29 Keflex 2018-0 Yes Soto 1 tablet Mem oria 1-10 Garza l 03:45: [employer] [facility] [facility] Metformin 2018-0 Yes Soto TK 1 T PO Memoria HCl 1-10 Garza BID l 03:45: [employer] [facility] [facility] Methocarbam 2018-0 Yes Soto TAKE 1 TO Memoria ol 1-10 Garza 2 TABLETS l 03:45: BY MOUTH [facility] 29 EVERY 8 HOURS NEEDED FOR MUSCLE SPASM 5 DAYS Atorvastati 2018-0 Yes Soto TK 1 T PO Memoria n Calcium 1-10 Garza QD l 03:45: [facility] 29 Duexis 2018-0 Yes Soto TAKE 1 Memor ia 1-10 Garza TABLET BY l 03:45: MOUTH 3 [facility] 29 TIMES A DAY FOR 30 DAYS Lisinopril 2018-0 Yes Soto TK 1 T PO Memoria 1-10 Garza QD l 03:45: [facility] 29 Xarelto 2018-0 Yes Soto TK 1 T PO M emoria 1-10 Garza Q 24 HOURS l 03:45: FOR 13 [facility] 29 DAYS Warfarin 2018-0 Yes Soto TK 1 T PO Memoria Sodium 1-10 Garza NIGHT l 03:45: BEFORE [employer] [facility] [facility] SURGERY Cyclobenzap 2018-0 Yes Soto TK 1 T PO Memoria rine HCl 1-10 Garza Q 8 H PRN l 03:45: MUSCLE [employer] [facility] [employer] [facility] SPASMS Opana ER 2018-0 Yes Soto (Schedule Memoria 1-10 Garza II Drug) l 03:45: TAKE 1 [facility] 29 TABLET BY MOUTH EVERY 12 HOURS FOR PAIN Oxymorphone 2018-0 Yes Soto (Schedule Memoria HCl 1-10 Garza II Drug) l 03:45: TAKE 1 [facility] 29 TABLET BY MOUTH EVERY 6 HOURS NEEDED FOR PAIN Cefazolin 2018-0 Yes Soto not Kiko madelin in D5W 1-10 Garza defined l 03:45: [employer] [facility] [facility] Hydrocodone 2018-0 Yes Soto (Schedule [facility]oria -Acetaminop 1-10 Garza II Drug) l hen 03:45: TAKE 1 [employer] [facility] [facility] TABLET BY MOUTH EVERY 6 HOURS NEEDED FOR PAIN Gabapentin 2018-0 Yes Soto TAKE 1 M emoria 1-10 Garza TABLET BY l 03:45: MOUTH 3 [employer] [facility] [facility] TIMES A DAY FOR 30 DAYS Meloxicam 2018-0 Yes Soto TK 1 T PO Memoria 1-10 Garza BID l 03:45: [facility] 29 Rifampin 2018-0 Yes Soto 1 capsule Memoria 1-10 Garza l 03:45: [employer] [facility] [facility] Doxycycline 2018-0 Yes Soto 1 capsule Memoria Hyclate 1-10 Garza l 03:45: [facility] 29 Keflex 2018-0 Yes Soto 1 tablet Mem oria 1-10 Garza l 03:45: [facility] 29 Opana ER 2018-0 Yes Soto (Schedule Memoria 1-10 Garza II Drug) l 03:45: TAKE 1 [facility] 29 TABLET BY MOUTH EVERY 12 HOURS FOR PAIN Cefazolin 2018-0 Yes Soto not Kiko madelin in D5W 1-10 Garza defined l 03:45: [facility] 29 Meloxicam 2018-0 Yes Soto TK 1 T PO Memoria 1-10 Garza BID l 03:45: [employer] [facility] [facility] Lisinopril 2018-0 Yes Soto TK 1 T PO Memoria 1-10 Garza QD l 03:45: [facility] 29 Cyclobenzap 2018-0 Yes Soto TK 1 T PO Memoria rine HCl 1-10 Garza Q 8 H PRN l 03:45: MUSCLE [facility] 29 SPASMS Gabapentin 2018-0 Yes Soto TAKE 1 M emoria 1-10 Garza TABLET BY l 03:45: MOUTH 3 [facility] 29 TIMES A DAY FOR 30 DAYS Hydrocodone 2018-0 Yes Soto (Schedule Memoria -Acetaminop 1-10 Garza II Drug) l hen 03:45: TAKE 1 [employer] [facility] [facility] TABLET BY MOUTH EVERY 6 HOURS NEEDED FOR PAIN Xarelto 2018-0 Yes Soto TK 1 T PO M emoria 1-10 Garza Q 24 HOURS l 03:45: FOR 13 [facility] 29 DAYS Methocarbam 2018-0 Yes Soto TAKE 1 TO Memoria ol 1-10 Garza 2 TABLETS l 03:45: BY MOUTH [employer] [facility] EVERY 8 HOURS NEEDED FOR MUSCLE SPASM 5 DAYS Duexis 2018-0 Yes Soto TAKE 1 Memor ia 1-10 Garza TABLET BY l 03:45: MOUTH 3 [facility] 29 TIMES A DAY FOR 30 DAYS Metformin 2018-0 Yes Soto TK 1 T PO Memoria HCl 1-10 Garza BID l 03:45: Atorvastati Yes Soto TK 1 T PO Memoria n Calcium 1-10 Garza QD l 03:45: Oxymorphone Yes Soto (Schedule Memoria HCl 1-10 Garza II Drug) l 03:45: TAKE 1 TABLET BY MOUTH EVERY 6 HOURS NEEDED FOR PAIN Warfarin Yes Soto TK 1 T PO Memoria Sodium 1-10 Garza NIGHT l 03:45: BEFORE SURGERY Rifampin Yes Soto 1 capsule Memoria 1-10 Garza l 03:45: Doxycycline Yes Soto 1 capsule Memoria Hyclate 1-10 Garza l 03:45: Keflex Yes Soto 1 tablet Mem oria 1-10 Garza l 03:45: Keflex 2016-10 Yes Harita 1 tablet Memor ia 1-21 [place] l 00:00: M[facility] 00 Keflex 2016-10 Yes Harita 1 tablet Memor ia 1-21 [place] l 00:00: [employer] [facility] Keflex 2016-10 Yes Harita 1 tablet Memor ia 1-21 [place] l 00:00: [employer] [facility] [facility] Keflex 2016-10 Yes Harita 1 tablet Memor ia 1-21 [place] l 00:00: [facility] 00 Omnipaque 2016-10 No Notes: Memori a 300 11-05 (Same l 14:55: as:Omnipaq Moy ue 300). WASTE: F/P - Black; E - Municipal Trash Bin Omnipaque 2016-10 No Notes: Memori a 300 11-05 (Same l 14:55: as:Omnipaq [facility] ue 300). WASTE: F/P - Black; E - Municipal Trash Bin Omnipaque 2016-10 No Notes: Memori a 300 11-05 (Same l 14:55: as:Omnipaq [employer] ue 300). WASTE: F/P - Black; E - Municipal Trash Bin Omnipaque 2016-10 No Notes: Memori a 300 11-05 (Same l 14:55: as:Omnipaq ue 300). WASTE: F/P - Black; E - Municipal Trash Bin Rifampin 2016-10 Yes Harita 1 capsule Me moria 0-31 [place] l 00:00: Doxycycline 2016-10 Yes Harita 1 capsule Memoria Hyclate 0-31 [place] l 00:00: Rifampin 2017 Yes Harita 1 capsule Me moria 0-31 [place] l 00:00: Rifampin 2017 Yes Harita 1 capsule Me moria 0-31 [place] l 00:00: Doxycycline 2016-10 Yes Harita 1 capsule Memoria Hyclate 0-31 [place] l 00:00: Rifampin 2016-10 Yes Harita 1 capsule Me moria 0-31 [place] l 00:00: Rifampin 2017 Yes Harita 1 capsule Me moria 0-31 [place] l 00:00: Doxycycline 2016-10 Yes Harita 1 capsule Memoria Hyclate 0-31 [place] l 00:00: Rifampin 2016-10 Yes Harita 1 capsule Me moria 0-31 [place] l 00:00: Rifampin 2016-10 Yes Harita 1 capsule Me moria 0-31 [place] l 00:00: Doxycycline 2016-10 Yes Harita 1 capsule Memoria Hyclate 0-31 [place] l 00:00: Rifampin 2016-10 Yes Harita 1 capsule Me moria 0-31 [place] l 00:00: OPANA No OPANA Memoria ER (C-II) 07-05 ER l Controlled 02:00: (C-II) [facility]o nn Med Pt's 00 Controlled Own Med Med Pt's Own Med, 10 mg, 1 tab, Drug form: MISC, Route: PO, Q12H, 07/04/17 21:00:00 CDT, Duration: 30 day, Stop date: 08/03/17 9:00:00 CDT Opana ER 2017-0 No 10 mg, Memoria 07-05 Route: PO, l 02:00: Drug form: Moy 00 ERTAB, Q12H, Dosing Weight 129, kg, Start date: 07/04/17 21:00:00 CDT, Duration: 30 day, Stop date: 08/03/17 9:00:00 CDT OPANA 2017-0 No OPANA Memoria ER (C-II) 07-05 ER l Controlled 02:00: (C-II) [facility] nn [facility] Pt's 00 Controlled Own Med Med Pt's Own Med, 10 mg, 1 tab, Drug form: MISC, Route: PO, Q12H, 07/04/17 21:00:00 CDT, Duration: 30 day, Stop date: 08/03/17 9:00:00 CDT Opana ER 2016-0 No 10 mg, Memoria 07-05 Route: PO, l 02:00: Drug form: Moy 00 ERTAB, Q12H, Dosing Weight 129, kg, Start date: 07/04/17 21:00:00 CDT, Duration: 30 day, Stop date: 08/03/17 9:00:00 CDT OPANA 2017-0 No OPANA Memoria ER (C-II) 07-05 ER l Controlled 02:00: (C-II) [facility] nn [facility] Pt's 00 Controlled Own Med Med Pt's Own Med, 10 mg, 1 tab, Drug form: MISC, Route: PO, Q12H, 07/04/17 21:00:00 CDT, Duration: 30 day, Stop date: 08/03/17 9:00:00 CDT Opana ER 2016-0 No 10 mg, Memoria 07-05 Route: PO, l 02:00: Drug form: [employer] [facility] 00 ERTAB, Q12H, Dosing Weight 129, kg, Start date: 07/04/17 21:00:00 CDT, Duration: 30 day, Stop date: 08/03/17 9:00:00 CDT OPANA 2017-0 No OPANA Memoria ER (C-II) 07-05 ER l Controlled 02:00: (C-II) [facility] nn Med Pt's 00 Controlled Own Med Med Pt's Own Med, 10 mg, 1 tab, Drug form: MISC, Route: PO, Q12H, 07/04/17 21:00:00 CDT, Duration: 30 day, Stop date: 08/03/17 9:00:00 CDT Opana ER No 10 mg, Memoria 07-05 Route: PO, l 02:00: Drug form: [employer] [facility] 00 ERTAB, Q12H, Dosing Weight 129, kg, Start date: 07/04/17 21:00:00 CDT, Duration: 30 day, Stop date: 08/03/17 9:00:00 CDT Cefazolin 2017-0 Yes 2 gm = 100 Me moria 9-16 mL, IVPB, l 00:45: [id number], 0 [employer] [facility] Refill(s) Cefazolin 2017-0 Yes 2 gm = 100 Me moria 9-16 mL, IVPB, l 00:45: ABXQ8H, 0 [employer] [facility] [facility] Refill(s) Cefazolin 2017-0 Yes 2 gm = 100 Me moria 9-16 mL, IVPB, l 00:45: ABXQ8H, 0 Moy 00 Refill(s) Cefazolin 2017-0 Yes 2 gm = 100 Me moria 9-16 mL, IVPB, l 00:45: ABXQ8H, 0 [employer] [facility] [facility] Refill(s) OPANA 2016-0 No OPANA Memoria ER (C-II) 07-04 ER l Controlled 16:48: (C-II) [facility] Pt's 00 Controlled Own Med Med Pt's Own Med, 10 mg, Drug form: MISC, Route: PO, Q12H, Priority: NOW, 07/04/17 11:48:00 CDT, Duration: 30 day, Stop date: 08/03/17 9:00:00 CDT OPANA 2016-0 No OPANA Memoria ER (C-II) 07-04 ER l Controlled 16:48: (C-II) [facility] nn [facility] Pt's 00 Controlled Own Med Med Pt's Own Med, 10 mg, Drug form: MISC, Route: PO, Q12H, Priority: , 07/04/17 11:48:00 CDT, Duration: 30 day, Stop date: 08/03/17 9:00:00 CDT OPANA No OPANA Memoria ER (C-II) 07-04 ER l Controlled 16:48: (C-II) [facility] nn Med Pt's 00 Controlled Own Med Med Pt's Own Med, 10 mg, Drug form: MISC, Route: PO, Q12H, Priority: , 07/04/17 11:48:00 CDT, Duration: 30 day, Stop date: 08/03/17 9:00:00 CDT OPANA No OPANA Memoria ER (C-II) 07-04 ER l Controlled 16:48: (C-II) [facility] nn Med Pt's 00 Controlled Own Med Med Pt's Own Med, 10 mg, Drug form: MISC, Route: PO, Q12H, Priority: , 07/04/17 11:48:00 CDT, Duration: 30 day, Stop date: 08/03/17 9:00:00 CDT MS Contin No Notes: Do Mem oria -15 not crush l 02:00: (Same as:[employer] h SR, MS Contin) MS Contin No Notes: Do Mem oria 9-15 not crush l 02:00: (Same as:[employer] [facility] SR, MS Contin) MS Contin No Notes: Do Mem oria 9-15 not crush l 02:00: (Same as:[employer] [facility] SR, MS Contin) MS Contin No Notes: Do Mem oria 9-15 not crush l 02:00: (Same as:[employer] [facility] SR, MS Contin) Oxycontin No Notes: Do Mem oria 9-13 not crush l 02:00: or chew. [employer] [facility] (Same as: OxyContin) Oxycontin 0 No Notes: Do Mem oria 9-13 not crush l 02:00: or chew. Moy (Same as: OxyContin) Oxycontin 0 No Notes: Do Mem oria 9-13 not crush l 02:00: or chew. [employer] [facility] (Same as: OxyContin) Oxycontin 0 No Notes: Do Mem oria 9-13 not crush l 02:00: or chew. Moy (Same as: OxyContin) Naloxone 2016-0 No 0.4 mg, Memori a 06-30 Route: l 19:25: IVP, Moy 00 Q2MIN, Dosing Weight 129, kg, PRN Narcotic Reversal, Start date: 06/30/17 14:25:00 CDT, Duration: 8 doses or times, Stop date: Limited # of times Flumazenil No 0.2 mg, Kiko madelin 06-30 Route: l 19:25: IVP, PRN, Moy 00 Dosing Weight 129, kg, PRN Benzodiaze pine Reversal, Initial dose, Start date: 06/30/17 14:25:00 CDT, Duration: 30 day, Stop date: 07/30/17 14:24:00 CDT Morphine 2016-0 No 4 mg, Memoria 06-30 Route: l 19:25: IVP, [employer] 00 Q5Min, Dosing Weight 129, kg, PRN Pain Score 7-10, Start date: 06/30/17 14:25:00 CDT, Duration: 3 doses or times, Stop date: Limited # of times Oxycodone 2016-0 No 10 mg, Memori a 06-30 Route: NG, l 19:25: Drug form: [employer] [facility] 00 LIQ, Q4H, Dosing Weight 129, kg, PRN Pain Score 7-10, Start date: 06/30/17 14:25:00 CDT, Duration: 30 day, Stop date: 07/30/17 14:24:00 CDT Hydromorpho 2016-0 No 0.5 mg, Mem oria ne 06-30 Route: l 19:25: IVP, [employer] [facility] 00 Q5Min, Dosing Weight 129, kg, PRN Pain Score 7-10, Start date: 06/30/17 14:25:00 CDT, Duration: 4 doses or times, Stop date: Limited # of times Fentanyl 2017-0 No 50 Memoria 9-11 microgram, l 19:25: Route: Moy 00 IVP, Q5Min, Dosing Weight 129, kg, PRN Pain Score 7-10, Priority: Routine, Start date: 06/30/17 14:25:00 CDT, Duration: 2 doses or times, Stop date: Limited # of times Diphenhydra 2017-0 No 12.5 mg, Me moria mine 06-30 Route: l 19:25: IVP, Drug form: INJ, Q6H, Dosing Weight [...] 06-30 Route: l 19:25: IVP, ONCE, [employer] 00 Dosing Weight 129, kg, PRN Nausea & Vomiting, Start date: 06/30/17 14:25:00 CDT Meperidine 2017-0 No 12.5 mg, Mem oria 06-30 Route: l 19:25: IVP, [employer] [facility] 00 Q30Min, Dosing Weight 129, kg, PRN [...] Memori a 06-30 Route: l 19:25: IVP, [employer] [facility] 00 Q5Min, Dosing Weight 129, kg, PRN Elevated BP, Start date: 06/30/17 14:25:00 CDT, Duration: 5 doses or times, Stop date: Limited # of times Acetaminoph 2017-0 No 1,000 mg, M emoria en 06-30 [...] or times, Stop date: 06/30/17 14:25:00 CDT Naloxone 2017-0 No 0.4 mg, Memori a 06-30 Route: l 19:25: IVP, [employer] 00 Q2MIN, Dosing Weight 129, kg, PRN Narcotic Reversal, Start date: 06/30/17 14:25:00 CDT, Duration: 8 doses or times, Stop date: Limited # of times Flumazenil 2017-0 No 0.2 mg, Kiko madelin 06-30 Route: l 19:25: IVP, PRN, Moy 00 Dosing Weight 129, kg, PRN Benzodiaze pine Reversal, Initial dose, Start date: 06/30/17 14:25:00 CDT, Duration: 30 day, Stop date: 07/30/17 14:24:00 CDT Morphine 2017-0 No 4 mg, Memoria 06-30 Route: l 19:25: IVP, [employer] [facility] 00 Q5Min, Dosing Weight 129, kg, PRN [...] Memoria 06-30 microgram, l 19:25: Route: [employer] [facility] 00 IVP, Q5Min, Dosing Weight 129, kg, PRN Pain Score 7-10, Priority: Routine, Start date: 06/30/17 14:25:00 CDT, Duration: 2 doses or times, Stop date: Limited # of times Diphenhydra 2016-0 No 12.5 mg, Me moria mine 06-30 Route: l 19:25: IVP, Drug form: INJ, Q6H, Dosing Weight 129, kg, PRN Itching, Start date: 06/30/17 14:25:00 CDT, Duration: 30 day, Stop date: 07/30/17 14:24:00 CDT Albuterol 2016-0 No 2.49 mg, Kiko madelin 0.83 MG/ML 06-30 Route: l Inhalant 19:25: NEB, Moy Solution 00 Q20Min, Dosing Weight 129, kg, PRN Wheezing, Priority: STAT, Start date: 06/30/17 14:25:00 CDT, Duration: 30 day, Stop date: 07/30/17 14:24:00 CDT Ondansetron 2017-0 No 4 mg, Memor ia 06-30 Route: l 19:25: IVP, ONCE, Dosing Weight 129, kg, PRN Nausea & Vomiting, Start date: 06/30/17 14:25:00 CDT Meperidine 2017-0 No 12.5 mg, Mem oria 06-30 Route: l 19:25: IVP, [employer] 00 Q30Min, Dosing Weight 129, kg, PRN Other -See Comment, For shivering, Start date: 06/30/17 14:25:00 CDT, Duration: 2 doses or times, Stop date: Limited # of times esmolol 2017-0 No 10 mg, Memoria 06-30 Route: l 19:25: IVP, [employer] 00 Q5Min, Dosing Weight 129, kg, PRN [...] Memori a 06-30 Route: l 19:25: IVP, [employer] [facility] 00 Q5Min, Dosing Weight 129, kg, PRN Elevated BP, Start date: 06/30/17 14:25:00 CDT, Duration: 5 doses or times, Stop date: Limited # of times Acetaminoph 2017-0 No 1,000 mg, M emoria en 06-30 [...] or times, Stop date: 06/30/17 14:25:00 CDT Naloxone 2017-0 No 0.4 mg, Memori a 06-30 Route: l 19:25: IVP, [employer] 00 Q2MIN, Dosing Weight 129, kg, PRN Narcotic Reversal, Start date: 06/30/17 14:25:00 CDT, Duration: 8 doses or times, Stop date: Limited # of times Flumazenil 2017-0 No 0.2 mg, Kiko madelin 06-30 Route: l 19:25: IVP, PRN, [employer] 00 Dosing Weight 129, kg, PRN Benzodiaze pine Reversal, Initial dose, Start date: 06/30/17 14:25:00 CDT, Duration: 30 day, Stop date: 07/30/17 14:24:00 CDT Morphine 2017-0 No 4 mg, Memoria 06-30 Route: l 19:25: IVP, [employer] 00 Q5Min, Dosing Weight 129, kg, PRN Pain Score 7-10, Start date: 06/30/17 14:25:00 CDT, Duration: 3 doses or times, Stop date: Limited # of times Oxycodone 2016-0 No 10 mg, Memori a 06-30 Route: [...] of times Fentanyl 2017-0 No 50 Memoria 06-30 microgram, l 19:25: Route: [employer] [facility] 00 IVP, Q5Min, Dosing Weight 129, kg, PRN Pain Score 7-10, Priority: Routine, Start date: 06/30/17 14:25:00 CDT, Duration: 2 doses or times, Stop date: Limited # of times Diphenhydra 2017-0 No 12.5 mg, Me moria mine 06-30 Route: l 19:25: IVP, Drug form: INJ, Q6H, Dosing Weight [...] ia 06-30 Route: l 19:25: IVP, ONCE, Dosing Weight 129, kg, PRN Nausea [...] mg, Memoria 06-30 Route: l 19:25: IVP, [employer] 00 Q5Min, Dosing Weight 129, kg, PRN [...] Stop date: Limited # of times Acetaminoph 2017-0 No 1,000 mg, M abelria en 06-30 Route: l 19:25: IVPB, Drug Moy 00 form: INJ, ONCE, Dosing Weight 129, kg, PRN Pain Score 1-3, Start date: 06/30/17 14:25:00 CDT, Duration: 1 doses or times, Stop date: Limited # of times Ketorolac 2017-0 No 30 mg, Memori a 06-30 Route: l 19:25: IVP, ONCE, Dosing Weight 129, kg, Start date: 06/30/17 14:25:00 CDT, Duration: 1 doses or times, Stop date: 06/30/17 14:25:00 CDT Naloxone 2017-0 No 0.4 mg, Memori a 06-30 Route: l 19:25: IVP, [employer] 00 Q2MIN, Dosing Weight 129, kg, PRN Narcotic Reversal, Start date: 06/30/17 14:25:00 CDT, Duration: 8 doses or times, Stop date: Limited # of times Flumazenil 2017-0 No 0.2 mg, Kiko madelin 06-30 Route: l 19:25: IVP, PRN, Moy 00 Dosing Weight 129, kg, PRN Benzodiaze pine Reversal, Initial dose, Start date: 06/30/17 14:25:00 CDT, Duration: 30 day, Stop date: 07/30/17 14:24:00 CDT Morphine 2017-0 No 4 mg, Memoria 06-30 Route: l 19:25: IVP, [employer] 00 Q5Min, Dosing Weight 129, kg, PRN [...] ne 06-30 Route: l 19:25: IVP, [employer] 00 Q5Min, Dosing Weight 129, kg, PRN [...] MG/ML 06-30 Route: l Inhalant 19:25: NEB, [employer] Solution 00 Q20Min, Dosing Weight 129, kg, PRN Wheezing, Priority: STAT, Start date: 06/30/17 14:25:00 CDT, Duration: 30 day, Stop date: 07/30/17 14:24:00 CDT Ondansetron 2017-0 No 4 mg, Memor ia 06-30 Route: l 19:25: IVP, ONCE, [employer] 00 Dosing Weight 129, kg, PRN Nausea & Vomiting, Start date: 06/30/17 14:25:00 CDT Meperidine 2017-0 No 12.5 mg, Mem oria 06-30 Route: l 19:25: IVP, [employer] 00 Q30Min, Dosing Weight 129, kg, PRN Other -See Comment, For shivering, Start date: 06/30/17 14:25:00 CDT, Duration: 2 doses or times, Stop date: Limited # of times esmolol 2016-0 No 10 mg, Memoria 06-30 Route: l 19:25: IVP, [employer] 00 Q5Min, Dosing Weight 129, kg, PRN [...] Stop date: Limited # of times Labetalol 0 No 10 mg, Memori a 06-30 Route: l 19:25: IVP, Moy 00 Q5Min, Dosing Weight 129, kg, PRN Elevated BP, Start date: 06/30/17 14:25:00 CDT, Duration: 5 doses or times, Stop date: Limited # of times Acetaminoph 0 No 1,000 mg, M emoria en 06-30 Route: l 19:25: IVPB, Drug form: INJ, ONCE, Dosing Weight 129, kg, PRN Pain Score 1-3, Start date: 06/30/17 14:25:00 CDT, Duration: 1 doses or times, Stop date: Limited # of times Ketorolac 0 No 30 mg, Memori a 06-30 Route: l 19:25: IVP, ONCE, Dosing Weight 129, kg, Start date: 06/30/17 14:25:00 CDT, Duration: 1 doses or times, Stop date: 06/30/17 14:25:00 CDT ondansetron 0 No Route: IV, Memoria (ANES) 06-30 Drug form: l 18:39: INJ, ONCE, Stop date: 06/30/17 13:39:00 CDT ondansetron 2016-0 No Route: IV, Memoria (ANES) 06-30 Drug form: l 18:39: INJ, ONCE, Stop date: 06/30/17 13:39:00 CDT ondansetron 2016-0 No Route: IV, Memoria (ANES) 06-30 Drug form: l 18:39: INJ, ONCE, Stop date: 06/30/17 13:39:00 CDT ondansetron No Route: IV, Memoria (ANES) 06-30 Drug form: l 18:39: INJ, ONCE, Stop date: 06/30/17 13:39:00 CDT lidocaine No Route: IV, Me moria (ANES) 06-30 Drug form: l 18:34: INJ, ONCE, Stop date: 06/30/17 13:34:00 CDT hydromorpho No Route: IV, Memoria ne (ANES) 06-30 Drug form: l 18:34: INJ, ONCE, Stop date: 06/30/17 13:34:00 CDT propofol 0 No Route: IV, Mem oria (ANES) 06-30 Drug form: l 18:34: INJ, ONCE, Stop date: 06/30/17 13:34:00 CDT lidocaine 0 No Route: IV, Me moria (ANES) 06-30 Drug form: l 18:34: INJ, ONCE, Stop date: 06/30/17 13:34:00 CDT hydromorpho 0 No Route: IV, Memoria ne (ANES) 06-30 Drug form: l 18:34: INJ, ONCE, Stop date: 06/30/17 13:34:00 CDT propofol 0 No Route: IV, Mem oria (ANES) 06-30 Drug form: l 18:34: INJ, ONCE, Stop date: 06/30/17 13:34:00 CDT lidocaine 0 No Route: IV, Me moria (ANES) 06-30 Drug form: l 18:34: INJ, ONCE, Stop date: 06/30/17 13:34:00 CDT hydromorpho 0 No Route: IV, Memoria ne (ANES) 06-30 Drug form: l 18:34: INJ, ONCE, Stop date: 06/30/17 13:34:00 CDT propofol 2017-0 No Route: IV, Mem oria (ANES) 06-30 Drug form: l 18:34: INJ, ONCE, Stop date: 06/30/17 13:34:00 CDT lidocaine No Route: IV, Me moria [...] (ANES) 06-30 Total l 17:39: Volume: [employer] 00 1,000, Start date: 06/30/17 12:39:00 CDT, Stop date: 06/30/17 13:39:00 CDT LR 1000 mL No Route: IV, M emoria INJ (ANES) 06-30 Total l 17:39: Volume: [employer] 00 1,000, Start date: 06/30/17 12:39:00 CDT, Stop date: 06/30/17 13:39:00 CDT LR 1000 mL No Route: IV, M emoria INJ (ANES) 06-30 Total l 17:39: Volume: [place] 00 1,000, Start date: 06/30/17 12:39:00 CDT, Stop date: 06/30/17 13:39:00 CDT LR 1000 mL No Route: IV, M emoria INJ (ANES) 06-30 Total l 17:39: Volume: [place] 00 1,000, Start date: 06/30/17 12:39:00 CDT, Stop date: 06/30/17 13:39:00 CDT Calcium No 1,000 mL, Memor ia Chloride 06-30 Rate: 25 l 0.0014 17:24: ml/hr, [employer] MEQ/ML / 00 Infuse Potassium over: 40 Chloride hr, Route: 0.004 IV, Dosing MEQ/ML / Weight 129 Sodium kg, Total Chloride Volume: 0.103 1,000, MEQ/ML / Start Sodium date: Lactate 06/30/17 0.028 12:24:00 MEQ/ML CDT, Injectable Duration: Solution 30 day, Stop date: 07/30/17 12:23:00 CDT Calcium 2017-0 No 1,000 mL, Memor ia Chloride 06-30 Rate: 25 l 0.0014 17:24: ml/hr, [employer] MEQ/ML / 00 Infuse Potassium over: 40 Chloride hr, Route: 0.004 IV, Dosing MEQ/ML / Weight 129 Sodium kg, Total Chloride Volume: 0.103 1,000, MEQ/ML / Start Sodium date: Lactate 06/30/17 0.028 12:24:00 MEQ/ML CDT, Injectable Duration: Solution 30 day, Stop date: 07/30/17 12:23:00 CDT Calcium 2017-0 No 1,000 mL, Memor ia Chloride 06-30 Rate: 25 l 0.0014 17:24: ml/hr, [employer] MEQ/ML / 00 Infuse Potassium over: 40 Chloride hr, Route: 0.004 IV, Dosing MEQ/ML / Weight 129 Sodium kg, Total Chloride Volume: 0.103 1,000, MEQ/ML / Start Sodium date: Lactate 06/30/17 0.028 12:24:00 MEQ/ML CDT, Injectable Duration: Solution 30 day, Stop date: 07/30/17 12:23:00 CDT Calcium 2017-0 No 1,000 mL, Memor ia Chloride 06-30 Rate: 25 l 0.0014 17:24: ml/hr, [employer] MEQ/ML / 00 Infuse Potassium over: 40 Chloride hr, Route: 0.004 IV, Dosing MEQ/ML / Weight 129 Sodium kg, Total Chloride Volume: 0.103 1,000, MEQ/ML / Start Sodium date: Lactate 06/30/17 0.028 12:24:00 MEQ/ML CDT, Injectable Duration: Solution 30 day, Stop date: 07/30/17 12:23:00 CDT Morphine 2017-0 No Notes: Memoria 9-11 (Same l 15:32: as:MORPhin Moy 00 e Sulfate) Morphine 2016-0 No Notes: Memoria 9-11 (Same l 15:32: as:MORPhin Moy 00 e Sulfate) Morphine 2016-0 No Notes: Memoria 9-11 (Same l 15:32: as:MORPhin Moy 00 e Sulfate) Morphine 2017-0 No Notes: Memoria 9-11 (Same l 15:32: as:MORPhin Moy 00 e Sulfate) Lactated 2017-0 No 1,000 mL, Kiko madelin Ringers 9-11 Rate: 100 l 1,000 mL 05:00: ml/hr, [employer] 00 Infuse over: 10 hr, Route: IV, Dosing Weight 129 kg, Total Volume: 1,000, Priority: Routine, Start date: 06/30/17 0:00:00 CDT, Duration: 30 day, Stop date: 07/29/17 23:59:00 CDT Lactated 2016-0 No 1,000 mL, Kiko madelin Ringers 9-11 Rate: 100 l 1,000 mL 05:00: ml/hr, [employer] [facility] 00 Infuse over: 10 hr, Route: IV, Dosing Weight 129 kg, Total Volume: 1,000, Priority: Routine, Start date: 06/30/17 0:00:00 CDT, Duration: 30 day, Stop date: 07/29/17 23:59:00 CDT Lactated 2016-0 No 1,000 mL, Kiko madelin Ringers 9-11 Rate: 100 l 1,000 mL 05:00: ml/hr, [place] 00 Infuse over: 10 hr, Route: IV, Dosing Weight 129 kg, Total Volume: 1,000, Priority: Routine, Start date: 06/30/17 0:00:00 CDT, Duration: 30 day, Stop date: 07/29/17 23:59:00 CDT Lactated 2016-0 No 1,000 mL, Kiko madelin Ringers 9-11 Rate: 100 l 1,000 mL 05:00: ml/hr, [place] 00 Infuse over: 10 hr, Route: IV, Dosing Weight 129 kg, Total Volume: 1,000, Priority: Routine, Start date: 06/30/17 0:00:00 CDT, Duration: 30 day, Stop date: 07/29/17 23:59:00 CDT Clonidine 2017-0 No Notes: Memori a Hydrochlori 9-09 (Same As: l de 0.1 MG 22:08: Catapres) Her perez Oral Tablet 00 Clonidine No Notes: Memori a Hydrochlori 9-09 (Same As: l de 0.1 MG 22:08: Catapres) Her perez Oral Tablet 00 Clonidine No Notes: Memori a Hydrochlori 9-09 (Same As: l de 0.1 MG 22:08: Catapres) Her perez Oral Tablet 00 Clonidine No Notes: Memori a Hydrochlori 9-09 (Same As: l de 0.1 MG 22:08: Catapres) Her perez Oral Tablet 00 Calcium No Notes: Memoria Gluconate - WASTE: F/P l 22:01: - Sink; E [employer] [facility] - [employer] K-Dur 20 No Notes: Memoria 9- (Same as: l 22:01: K-Dur 20) [place] 00 "Do Not Crush" With food and full glass of water Calcium No Notes: Memoria Gluconate 9- WASTE: F/P l 22:01: - Sink; E [employer] [facility] - [employer] Trash [employer] K-Dur 20 No Notes: Memoria 9-09 (Same as: l 22:01: K-Dur 20) [place] 00 "Do Not Crush" With food and full glass of water Calcium No Notes: Memoria Gluconate - WASTE: F/P l 22:01: - Sink; E [place] - [employer] Trash [facility] K-Dur 20 No Notes: Memoria 9-09 (Same as: l 22:01: K-Dur 20) [place] 00 "Do Not Crush" With food and full glass of water K-Dur 20 No Notes: Memoria 9-09 (Same as: l 22:01: K-Dur 20) [employer] [facility] 00 "Do Not Crush" With food and full glass of water Calcium No Notes: Memoria Gluconate 9- WASTE: F/P l 22:01: - Sink; E [place] - [employer] Trash Bin gabapentin No Notes: Memor ia 06-28 (Same as: l 10:30: Neurontin) [employer] [facility] 00 gabapentin No Notes: Memor ia 06-28 (Same as: l 10:30: Neurontin) [place] 00 gabapentin No Notes: Memor ia 06-28 (Same as: l 10:30: Neurontin) [place] 00 gabapentin No Notes: Memor ia 06-28 (Same as: l 10:30: Neurontin) heparin No Notes: Memoria sodium, 06-28 porcine l porcine 05:00: heparin [place] 2500 UNT/ML 00 Injectable Solution heparin No Notes: Memoria sodium, 06-28 porcine l porcine 05:00: heparin [employer] [facility] 2500 UNT/ML 00 Injectable Solution heparin No Notes: Memoria sodium, 06-28 porcine l porcine 05:00: heparin [employer] [facility] [employer] 2500 UNT/ML 00 Injectable Solution heparin No Notes: Memoria sodium, 06-28 porcine l porcine 05:00: heparin [employer] [facility] 2500 UNT/ML 00 Injectable Solution gabapentin Yes 800 mg = 1 M emoria 800 MG Oral 06-28 tab, PO, l Tablet 01:45: TID, # 90 Tomer n 00 tab, 3 Refill(s) Acetaminoph Yes 1 tab, PO, Memoria en 325 MG / 06-28 Q6H, PRN l Hydrocodone 01:45: for pain, H ermann Bitartrate 00 # 24 tab, 10 MG Oral 0 Tablet Refill(s) [[place] 10/325] gabapentin Yes 800 mg = 1 M emoria 800 MG Oral 06-28 tab, PO, l Tablet 01:45: TID, # 90 Tomer n 00 tab, 3 Refill(s) Acetaminoph Yes 1 tab, PO, Memoria en 325 MG / 06-28 Q6H, PRN l Hydrocodone 01:45: for pain, [facility] Bitartrate 00 # 24 tab, 10 MG Oral 0 Tablet Refill(s) [[place] 10/325] gabapentin Yes 800 mg = 1 M emoria 800 MG Oral 06-28 tab, PO, l Tablet 01:45: TID, # 90 Tomer n 00 tab, 3 Refill(s) Acetaminoph Yes 1 tab, PO, Memoria en 325 MG / 06-28 Q6H, PRN l Hydrocodone 01:45: for pain, H [facility] Bitartrate 00 # 24 tab, 10 MG Oral 0 Tablet Refill(s) [[place] 10/325] gabapentin Yes 800 mg = 1 M emoria 800 MG Oral 06-28 tab, PO, l Tablet 01:45: TID, # 90 Tomer n 00 tab, 3 Refill(s) Acetaminoph Yes 1 tab, PO, Memoria en 325 MG / 06-28 Q6H, PRN l Hydrocodone 01:45: for pain, H ermann Bitartrate 00 # 24 tab, 10 MG Oral 0 Tablet Refill(s) [[place] 10/325] Docusate No Notes: Memoria Sodium 100 08 (Same as: l MG Oral 22:00: Colace) [place] Capsule 00 (Do Not Crush) Docusate No Notes: Memoria Sodium 100 08 (Same as: l MG Oral 22:00: Colace) [place] Capsule 00 (Do Not Crush) Docusate No Notes: Memoria Sodium 100 908 (Same as: l MG Oral 22:00: Colace) [place] Capsule 00 (Do Not Crush) Docusate No Notes: Memoria Sodium 100 9-08 (Same as: l MG Oral 22:00: Colace) [place] Capsule 00 (Do Not Crush) [facility] No 15 [facility], Route: l 19:30: IV, [employer] [facility] 00 Initial Loading Dose: 0.4mg, [employer] Dose: 0.2 mg, [employer] Lockout: 10 minutes, Continuous Basal Rate: 0 mg, 4 Hour Limit (In MG): 6, Continuous , Start date: 06/27/17 14:30:00 CDT, Duration: 30 day, Stop date: 07/27/17 14:29:00 CDT Hydromorpho No 15 mg, [facility], Route: l 19:30: IV, [place] 00 Initial Loading Dose: 0.4mg, [employer] Dose: 0.2 mg, [employer] Lockout: 10 minutes, Continuous Basal Rate: 0 mg, 4 Hour Limit (In MG): 6, Continuous , Start date: 06/27/17 14:30:00 CDT, Duration: 30 day, Stop date: 07/27/17 14:29:00 CDT Hydromorpho 2017-0 No 15 mg, 30 M loy ne 9-08 mL, Route: l 19:30: IV, [employer] [facility] [facility] 00 Initial Loading Dose: 0.4mg, [employer] Dose: 0.2 mg, [employer] Lockout: 10 minutes, Continuous Basal Rate: 0 mg, 4 Hour Limit (In MG): 6, Continuous , Start date: 06/27/17 14:30:00 CDT, Duration: 30 day, Stop date: 07/27/17 14:29:00 CDT Hydromorpho 2017-0 No 15 mg, 30 M [facility] 9-08 mL, Route: l 19:30: IV, [employer] [facility] 00 Initial Loading Dose: 0.4mg, [employer] Dose: 0.2 mg, [employer] Lockout: 10 minutes, Continuous Basal Rate: 0 mg, 4 Hour Limit (In MG): 6, Continuous , Start date: 06/27/17 14:30:00 CDT, Duration: 30 day, Stop date: 07/27/17 14:29:00 CDT Naloxone 2017-0 No Notes: Memoria 9-08 Same as l 19:12: Narcan [employer] [facility] 00 Naloxone 2017-0 No Notes: Memoria 9-08 Same as l 19:12: Narcan Naloxone 2017-0 No Notes: Memoria 9-08 Same as l 19:12: Narcan [employer] [facility] Naloxone 2017-0 No Notes: Memoria 9-08 Same as l 19:12: Narcan Morphine 2017-0 No 30 mg, 30 Kiko madelin 9-08 mL, Route: l 19:00: IV, [employer] [facility] 00 Initial Loading Dose: 2 mg, [employer] Dose: 1 mg, [employer] Lockout: 10 minutes, Continuous Basal Rate: 0 mg, 4 Hour Limit (In MG): 30, Continuous , Start date: 06/27/17 14:00:00 CDT, Duration: 30 day, Stop date: 07/27/17 13:59:00 CDT Morphine 2017-0 No 30 mg, 30 Kiko madelin 9-08 mL, Route: l 19:00: IV, [place] 00 Initial Loading Dose: 2 mg, [employer] Dose: 1 mg, [employer] Lockout: 10 minutes, Continuous Basal Rate: 0 mg, 4 Hour Limit (In MG): 30, Continuous , Start date: 06/27/17 14:00:00 CDT, Duration: 30 day, Stop date: 07/27/17 13:59:00 CDT Morphine No 30 mg, 30 Kiko madelin 9-08 mL, Route: l 19:00: IV, Initial Loading Dose: 2 mg, [employer] Dose: 1 mg, [employer] Lockout: 10 minutes, Continuous Basal Rate: 0 mg, 4 Hour Limit (In MG): 30, Continuous , Start date: 06/27/17 14:00:00 CDT, Duration: 30 day, Stop date: 07/27/17 13:59:00 CDT Morphine No 30 mg, 30 Kiko madelin 9-08 mL, Route: l 19:00: IV, Initial Loading Dose: 2 mg, [employer] Dose: 1 mg, [employer] Lockout: 10 minutes, Continuous Basal Rate: 0 [...] 06-27 Rate: 125 l 0.0014 18:49: ml/hr, [place] MEQ/ML / 00 Infuse Potassium over: 8 [...] en 06-27 acetaminop l 18:49: hen 4000 mg/day (4 gm/day). (Same as: Tylenol [...] l 18:49: Benadryl) Promethazin No Notes: Do Raoul granado e 06-27 not give l 18:49: IV push. [employer] [facility] 00 (Same as: Phenergan) Ondansetron No Notes: Kiko [...] 06-27 Rate: 125 l 0.0014 18:49: ml/hr, [place] MEQ/ML / 00 Infuse Potassium over: 8 [...] en 06-27 acetaminop l 18:49: hen 4000 [employer] [facility] 00 mg/day (4 gm/day). (Same as: Tylenol [...] 06-27 not give l 18:49: IV push. [employer] [facility] 00 (Same as: Phenergan) Ondansetron No Notes: Kiko madelin 06-27 (Same as: l 18:49: Zofran) MEDICATION WASTE Product Size: 4 mg Product Wasted: _0__ mg Hydromorpho No 0.5 mg, Mem oria ne 06-27 Route: l 18:49: IVP, [employer] [facility] 00 Q5Min, Dosing Weight 129, kg, PRN Pain Score 7-10, Start date: 06/27/17 13:49:00 CDT, Duration: 4 doses or times, Stop date: Limited # of times Naloxone No Notes: Memoria 06-27 Same as l 18:49: Narcan Flumazenil No Notes: Memor ia 06-27 (Same as: l 18:49: Romazicon) Calcium No 1,000 mL, Memor ia Chloride 06-27 Rate: 125 l 0.0014 18:49: ml/hr, [employer] [facility] MEQ/ML / 00 Infuse Potassium over: 8 [...] en 06-27 acetaminop l 18:49: hen 4000 mg/day (4 gm/day). (Same as: Tylenol [...] Memoria 06-27 Same as l 18:49: Narcan [employer] [facility] [facility] Flumazenil No Notes: Memor ia 06-27 (Same as: l 18:49: Romazicon) [employer] [facility] Calcium No 1,000 mL, Memor ia Chloride 06-27 Rate: 125 l 0.0014 18:49: ml/hr, [place] MEQ/ML / 00 Infuse Potassium over: 8 [...] en 06-27 acetaminop l 18:49: hen 4000 mg/day (4 gm/day). (Same as: Tylenol [...] 13:42:00 CDT Promethazin No Notes: Do Raoul emoria e 06-27 not give l 18:43: IV push. [employer] [facility] 00 (Same as: Phenergan) Acetaminoph No Notes: Do Raoul emoria en 325 MG / 06-27 not exceed l Hydrocodone 18:43: 4gm/day of [employer] [facility] Bitartrate 00 acetaminop 10 MG Oral hen. (Same Tablet as: [place] 325/10) Naloxone No Notes: Memoria 06-27 Same as l 18:43: Narcan [employer] [facility] 00 sodium No 1,000 mL, Memori a chloride 06-27 Rate: 30 l 0.45% 1000 18:43: ml/hr, Margo nn ml INJ 00 Infuse 1,000 mL over: 33.3 hr, Route: IV, Dosing Weight 129 kg, Total Volume: 1,000, Start date: 06/27/17 13:43:00 CDT, Duration: 30 day, Stop date: 07/27/17 13:42:00 CDT Promethazin No Notes: Do Raoul emoria e 06-27 not give l 18:43: IV push. [place] 00 (Same as: Phenergan) Acetaminoph No Notes: Do Raoul emoria en 325 MG / 06-27 not exceed l Hydrocodone 18:43: 4gm/day of [place] Bitartrate 00 acetaminop 10 MG Oral hen. (Same Tablet as: [place] 325/10) Naloxone No Notes: Memoria 06-27 Same as l 18:43: Narcan [employer] [facility] [facility] 00 sodium No 1,000 mL, Memori a [...] not give l 18:43: IV push. [employer] [facility] (Same as: Phenergan) Acetaminoph No Notes: Do M emoria en 325 MG / 06-27 not exceed l Hydrocodone 18:43: 4gm/day of [employer] [facility] [facility] Bitartrate 00 acetaminop 10 MG Oral hen. (Same Tablet as: [place] 325/10) Naloxone No Notes: Memoria 06-27 Same as l 18:43: Narcan [employer] [facility] 00 sodium No 1,000 mL, Memori a chloride 06-27 Rate: 30 l 0.45% 1000 18:43: ml/hr, Margo nn ml INJ 00 Infuse 1,000 mL over: 33.3 hr, Route: IV, Dosing Weight 129 kg, Total Volume: 1,000, Start date: 06/27/17 13:43:00 CDT, Duration: 30 day, Stop date: 07/27/17 13:42:00 CDT Promethazin No Notes: Do Raoul emoria e 06-27 not give l 18:43: IV push. [employer] [facility] (Same as: Phenergan) Acetaminoph No Notes: Do Raoul emoria en 325 MG / 06-27 not exceed l Hydrocodone 18:43: 4gm/day of [place] Bitartrate 00 acetaminop 10 MG Oral hen. (Same Tablet as: [place] 325/10) phenylephri No Route: IV, Memoria ne (ANES) 06-27 Drug form: l 17:53: INJ, ONCE, [place] 00 Stop date: 06/27/17 12:53:00 CDT phenylephri No Route: IV, Memoria ne (ANES) 06-27 Drug form: l 17:53: INJ, ONCE, [employer] [facility] [facility] 00 Stop date: 06/27/17 12:53:00 CDT phenylephri No Route: IV, Memoria ne (ANES) 06-27 Drug form: l 17:53: INJ, ONCE, [place] 00 Stop date: 06/27/17 12:53:00 CDT phenylephri No Route: IV, Memoria ne (ANES) 06-27 Drug form: l 17:53: INJ, ONCE, Stop date: 06/27/17 12:53:00 CDT hydromorpho 2017-0 No Route: IV, Memoria ne (ANES) 06-27 Drug form: l 17:38: INJ, ONCE, Stop date: 06/27/17 12:38:00 CDT hydromorpho 2017-0 No Route: IV, Memoria ne (ANES) 06-27 Drug form: l 17:38: INJ, ONCE, Stop date: 06/27/17 12:38:00 CDT hydromorpho 20170 No Route: IV, Memoria ne (ANES) 06-27 Drug form: l 17:38: INJ, ONCE, Stop date: 06/27/17 12:38:00 CDT hydromorpho 20170 No Route: IV, Memoria ne (ANES) 06-27 Drug form: l 17:38: INJ, ONCE, Stop date: 06/27/17 12:38:00 CDT ceFAZolin 2017-0 No Route: IV, Me moria (ANES) 06-27 Drug form: l 17:06: INJ, ONCE, Stop date: 06/27/17 12:06:00 CDT ceFAZolin 2017-0 No Route: IV, Me moria (ANES) 06-27 Drug form: l 17:06: INJ, ONCE, Stop date: 06/27/17 12:06:00 CDT ceFAZolin 2017-0 No Route: IV, Me moria (ANES) 06-27 Drug form: l 17:06: INJ, ONCE, Stop date: 06/27/17 12:06:00 CDT ceFAZolin 2017-0 No Route: IV, Me moria (ANES) 06-27 Drug form: l 17:06: INJ, ONCE, Stop date: 06/27/17 12:06:00 CDT cefepime 2017-0 No Route: IV, Mem oria (ANES) 06-27 Drug form: l 16:41: INJ, ONCE, Stop date: 06/27/17 11:41:00 CDT cefepime No Route: IV, Mem oria (ANES) 06-27 Drug form: l 16:41: INJ, ONCE, Stop date: 06/27/17 11:41:00 CDT cefepime No Route: IV, Mem oria (ANES) 06-27 Drug form: l 16:41: INJ, ONCE, Stop date: 06/27/17 11:41:00 CDT cefepime No Route: IV, Mem oria (ANES) 06-27 Drug form: l 16:41: INJ, ONCE, Stop date: 06/27/17 11:41:00 CDT metroNIDAZO No Route: IV, Memoria LE (ANES) 06-27 Drug form: l 16:16: INJ, ONCE, Stop date: 06/27/17 11:16:00 CDT metroNIDAZO No Route: IV, Memoria LE (ANES) 06-27 Drug form: l 16:16: INJ, ONCE, Stop date: 06/27/17 11:16:00 CDT metroNIDAZO No Route: IV, Memoria LE (ANES) 06-27 Drug form: l 16:16: INJ, ONCE, Stop date: 06/27/17 11:16:00 CDT metroNIDAZO No Route: IV, Memoria LE (ANES) 06-27 Drug form: l 16:16: INJ, ONCE, Stop date: 06/27/17 11:16:00 CDT Albuterol No Notes: Memori a 0.833 MG/ML 06-27 (Same as: l / 14:38: Duoneb) Ipratropium 00 [place] 0.167 MG/ML Inhalant Solution Calcium No 1,000 mL, Memor ia Chloride 06-27 Rate: 25 l 0.0014 14:38: ml/hr, MEQ/ML / 00 Infuse Potassium over: 40 Chloride hr, Route: 0.004 IV, Dosing MEQ/ML / Weight 129 Sodium kg, Total Chloride Volume: 0.103 1,000, MEQ/ML / Start Sodium date: Lactate 06/27/17 0.028 9:38:00 MEQ/ML CDT, Injectable Duration: Solution 1 day, Stop date: 06/28/17 9:37:00 CDT Albuterol No Notes: Memori a 0.833 MG/ML 06-27 (Same as: l 14:38: Duoneb) [employer] [facility] Ipratropium 00 [place] 0.167 MG/ML Inhalant Solution Calcium No 1,000 mL, Memor ia Chloride 06-27 Rate: 25 l 0.0014 14:38: ml/hr, [employer] [facility] [facility] MEQ/ML / 00 Infuse Potassium over: 40 Chloride hr, Route: 0.004 IV, Dosing MEQ/ML / Weight 129 Sodium kg, Total Chloride Volume: 0.103 1,000, MEQ/ML / Start Sodium date: Lactate 06/27/17 0.028 9:38:00 MEQ/ML CDT, Injectable Duration: Solution 1 day, Stop date: 06/28/17 9:37:00 CDT Albuterol No Notes: Memori a 0.833 MG/ML 06-27 (Same as: 14:38: Duoneb) [place] Ipratropium 00 [place] 0.167 MG/ML Inhalant Solution Calcium No 1,000 mL, Memor ia Chloride 06-27 Rate: 25 l 0.0014 14:38: ml/hr, [employer] [facility] [facility] MEQ/ML / 00 Infuse Potassium over: 40 Chloride hr, Route: 0.004 IV, Dosing MEQ/ML / Weight 129 Sodium kg, Total Chloride Volume: 0.103 1,000, MEQ/ML / Start Sodium date: Lactate 06/27/17 0.028 9:38:00 MEQ/ML CDT, Injectable Duration: Solution 1 day, Stop date: 06/28/17 9:37:00 CDT Albuterol No Notes: Memori a 0.833 MG/ML 06-27 (Same as: l 14:38: Duoneb) [employer] [facility] [facility] Ipratropium 00 [place] 0.167 MG/ML Inhalant Solution Calcium No 1,000 mL, Memor ia Chloride 06-27 Rate: 25 l 0.0014 14:38: ml/hr, [place] MEQ/ML / 00 Infuse Potassium over: 40 Chloride hr, Route: 0.004 IV, Dosing MEQ/ML / Weight 129 Sodium kg, Total Chloride Volume: 0.103 1,000, MEQ/ML / Start Sodium date: Lactate 06/27/17 0.028 9:38:00 MEQ/ML CDT, Injectable Duration: Solution 1 day, Stop date: 06/28/17 9:37:00 CDT ondansetron 2017-0 No Route: IV, Memoria (ANES) 06-27 Drug form: l 14:21: INJ, ONCE, Stop date: 06/27/17 9:21:00 CDT succinylcho 2016-0 No Route: IV, Memoria line (ANES) 06-27 Drug form: l 14:21: INJ, ONCE, Stop date: 06/27/17 9:21:00 CDT propofol 2017-0 No Route: IV, Mem oria (ANES) 06-27 Drug form: l 14:21: INJ, ONCE, Stop date: 06/27/17 9:21:00 CDT rocuronium 2017-0 No Route: IV, M emoria (ANES) 06-27 Drug form: l 14:21: INJ, ONCE, Stop date: 06/27/17 9:21:00 CDT ondansetron 2017-0 No Route: IV, Memoria (ANES) 06-27 Drug form: l 14:21: INJ, ONCE, Stop date: 06/27/17 9:21:00 CDT succinylcho 2017-0 No Route: IV, Memoria line (ANES) 06-27 Drug form: l 14:21: INJ, ONCE, Stop date: 06/27/17 9:21:00 CDT propofol 2017-0 No Route: IV, Mem oria (ANES) 06-27 Drug form: l 14:21: INJ, ONCE, Stop date: 06/27/17 9:21:00 CDT rocuronium 2017-0 No Route: IV, M emoria (ANES) 06-27 Drug form: l 14:21: INJ, ONCE, Stop date: 06/27/17 9:21:00 CDT ondansetron 2017-0 No Route: IV, Memoria (ANES) 06-27 Drug form: l 14:21: INJ, ONCE, Stop date: 06/27/17 9:21:00 CDT succinylcho 2016-0 No Route: IV, Memoria line (ANES) 06-27 Drug form: l 14:21: INJ, ONCE, Stop date: 06/27/17 9:21:00 CDT propofol 2017-0 No Route: IV, Mem oria (ANES) 06-27 Drug form: l 14:21: INJ, ONCE, Stop date: 06/27/17 9:21:00 CDT rocuronium 2017-0 No Route: IV, M emoria (ANES) 06-27 Drug form: l 14:21: INJ, ONCE, Stop date: 06/27/17 9:21:00 CDT ondansetron 2017-0 No Route: IV, Memoria (ANES) 06-27 Drug form: l 14:21: INJ, ONCE, Stop date: 06/27/17 9:21:00 CDT succinylcho 2017-0 No Route: IV, Memoria line (ANES) 06-27 Drug form: l 14:21: INJ, ONCE, Stop date: 06/27/17 9:21:00 CDT propofol 2017-0 No Route: IV, Mem oria (ANES) 06-27 Drug form: l 14:21: INJ, ONCE, Stop date: 06/27/17 9:21:00 CDT rocuronium 2017-0 No Route: IV, M emoria (ANES) 06-27 Drug form: l 14:21: INJ, ONCE, Stop date: 06/27/17 9:21:00 CDT lidocaine 2017-0 No Route: IV, Me moria (ANES) 06-27 Drug form: l 14:16: INJ, ONCE, Stop date: 06/27/17 9:16:00 CDT midazolam 2017-0 No Route: IV, Me moria (ANES) 06-27 Drug form: l 14:16: SOLN, 00 ONCE, Stop date: 06/27/17 9:16:00 CDT acetaminoph 2017-0 No Route: IV, Memoria en (ANES) 06-27 Drug form: l 14:16: INJ, ONCE, [place]oy 00 Stop date: 06/27/17 9:16:00 CDT fentaNYL 2017-0 No Route: IV, Mem oria (ANES) 06-27 Drug form: l 14:16: INJ, ONCE, [place] 00 Stop date: 06/27/17 9:16:00 CDT lidocaine 2017-0 No Route: IV, Me moria (ANES) 06-27 Drug form: l 14:16: INJ, ONCE, [place] 00 Stop date: 06/27/17 9:16:00 CDT midazolam 2017-0 No Route: IV, Me moria (ANES) 06-27 Drug form: l 14:16: SOLN, [employer] [facility] 00 ONCE, Stop date: 06/27/17 9:16:00 CDT acetaminoph 20170 No Route: IV, Memoria en (ANES) 06-27 Drug form: l 14:16: INJ, ONCE, Stop date: 06/27/17 9:16:00 CDT fentaNYL 2017-0 No Route: IV, Mem oria (ANES) 06-27 Drug form: l 14:16: INJ, ONCE, Stop date: 06/27/17 9:16:00 CDT lidocaine 2017-0 No Route: IV, Me moria (ANES) 06-27 Drug form: l 14:16: INJ, ONCE, Stop date: 06/27/17 9:16:00 CDT midazolam 2017-0 No Route: IV, Me moria (ANES) 06-27 Drug form: l 14:16: SOLN, [place]oy 00 ONCE, Stop date: 06/27/17 9:16:00 CDT acetaminoph 0 No Route: IV, Memoria en (ANES) 06-27 Drug form: l 14:16: INJ, ONCE, [facility]oy 00 Stop date: 06/27/17 9:16:00 CDT fentaNYL 2017-0 No Route: IV, Mem oria (ANES) 06-27 Drug form: l 14:16: INJ, ONCE, [employer] [facility] [facility] 00 Stop date: 06/27/17 9:16:00 CDT lidocaine 2017-0 No Route: IV, Me moria (ANES) 06-27 Drug form: l 14:16: INJ, ONCE, Stop date: 06/27/17 9:16:00 CDT midazolam 2017-0 No Route: IV, moria (ANES) 06-27 Drug form: l 14:16: SOLN, Omy 00 ONCE, Stop date: 06/27/17 9:16:00 CDT acetaminoph 2017-0 No Route: IV, Memoria en (ANES) 06-27 Drug form: l 14:16: INJ, ONCE, Stop date: 06/27/17 9:16:00 CDT fentaNYL 2017-0 No Route: IV, Mem oria (ANES) 06-27 Drug form: l 14:16: INJ, ONCE, Stop date: 06/27/17 9:16:00 CDT ceFAZolin 2017-0 No Route: IV, moria (ANES) 06-27 Drug form: l 14:11: INJ, ONCE, Stop date: 06/27/17 9:11:00 CDT ceFAZolin 2017-0 No Route: IV, moria (ANES) 06-27 Drug form: l 14:11: INJ, ONCE, Stop date: 06/27/17 9:11:00 CDT ceFAZolin 2017-0 No Route: IV, moria (ANES) 06-27 Drug form: l 14:11: INJ, ONCE, Stop date: 06/27/17 9:11:00 CDT ceFAZolin 2017-0 No Route: IV, moria (ANES) 06-27 Drug form: l 14:11: INJ, ONCE, Stop date: 06/27/17 9:11:00 CDT vancomycin 2017-0 No Route: IV, M emoria (ANES) 06-27 Drug form: l (ANES) 13:37: INJ, Start Margo date: 06/27/17 8:37:00 CDT, Stop date: 06/27/17 9:37:00 CDT vancomycin 2017-0 No Route: IV, M emoria (ANES) 06-27 Drug form: l (ANES) 13:37: INJ, Start Margo date: 06/27/17 8:37:00 CDT, Stop date: 06/27/17 9:37:00 CDT vancomycin No Route: IV, M emoria (ANES) 9 Drug form: l (ANES) 13:37: INJ, Start Margo nn date: 06/27/17 8:37:00 CDT, Stop date: 06/27/17 9:37:00 CDT vancomycin No Route: IV, M emoria (ANES) 06-27 Drug form: l (ANES) 13:37: INJ, Start Mrago nn date: 06/27/17 8:37:00 CDT, Stop date: 06/27/17 9:37:00 CDT LR 1000 mL No Route: IV, M emoria INJ (ANES) - Total l 12:56: Volume: Moy 00 1,000, Start date: 06/27/17 7:56:00 CDT, Stop date: 06/27/17 8:56:00 CDT LR 1000 mL No Route: IV, M emoria INJ (ANES) 06-27 Total l 12:56: Volume: Moy 00 1,000, Start date: 06/27/17 7:56:00 CDT, Stop date: 06/27/17 8:56:00 CDT LR 1000 mL No Route: IV, M emoria INJ (ANES) - Total l 12:56: Volume: Moy 00 1,000, Start date: 06/27/17 7:56:00 CDT, Stop date: 06/27/17 8:56:00 CDT LR 1000 mL No Route: IV, M emoria INJ (ANES) - Total l 12:56: Volume: [place] [facility] 00 1,000, Start date: 06/27/17 7:56:00 CDT, Stop date: 06/27/17 8:56:00 CDT bupivacaine No Notes: Kiko madelin -epinephrin 06-27 (bupivacai l e 12:10: ne-epi Moy 0.25%-1:200 00 0.25%-1:20 ,000 0,000 30 preservativ ml VL) Not e-free for use in injectable continuous solution infusion. (Same As: Marcaine w/Epi) bupivacaine No Notes: Kiko madelin -epinephrin 9-08 (bupivacai l e 12:10: ne-epi Moy 0.25%-1:200 00 0.25%-1:20 ,000 0,000 30 preservativ ml VL) Not e-free for use in injectable continuous solution infusion. (Same As: Marcaine w/Epi) bupivacaine No Notes: Kiko madelin -epinephrin 9-08 (bupivacai l e 12:10: ne-epi Moy 0.25%-1:200 00 0.25%-1:20 ,000 0,000 30 preservativ ml VL) Not e-free for use in injectable continuous solution infusion. (Same As: Marcaine w/Epi) bupivacaine No Notes: Kiko madelin -epinephrin -08 (bupivacai l e 12:10: ne-epi Moy 0.25%-1:200 00 0.25%-1:20 ,000 0,000 30 preservativ ml VL) Not e-free for use in injectable continuous solution infusion. (Same As: Marcaine w/Epi) Docusate No Notes: Memoria Sodium 100 9-07 (Same as: l MG Oral 22:00: Colace) Moy Capsule 00 (Do Not Crush) Docusate No Notes: Memoria Sodium 100 9-07 (Same as: l MG Oral 22:00: Colace) [place] [facility] Capsule 00 (Do Not Crush) Docusate No Notes: Memoria Sodium 100 9-07 (Same as: l MG Oral 22:00: Colace) Moy Capsule 00 (Do Not Crush) Docusate No Notes: Memoria Sodium 100 9-07 (Same as: l MG Oral 22:00: Colace) Moy Capsule 00 (Do Not Crush) Lactulose No Notes: Memori a 667 MG/ML 06-26 (Same l Oral 18:48: as:Chronul Moy Solution 00 ac) Lactulose No Notes: Memori a 667 MG/ML 06-26 (Same l Oral 18:48: as:Chronul Moy Solution 00 ac) Lactulose No Notes: Memori a 667 MG/ML - (Same l Oral 18:48: as:Chronul Moy Solution 00 ac) Lactulose No Notes: Memori a 667 MG/ML - (Same l Oral 18:48: as:Chronul Moy Solution 00 ac) gabapentin No Notes: Memor ia 9- (Same as: l 18:30: Neurontin) gabapentin No Notes: Memor ia 9-07 (Same as: l 18:30: Neurontin) gabapentin No Notes: Memor ia 9- (Same as: l 18:30: Neurontin) gabapentin No Notes: Memor ia 9- (Same as: l 18:30: Neurontin) Lidocaine No Notes: Memori a 40 MG/ML - (Same as: l Topical 15:29: Xylocaine) Herm jah Cream Lidocaine No Notes: Memori a 40 MG/ML - (Same as: l Topical 15:29: Xylocaine) Herm jah Cream Lidocaine No Notes: Memori a 40 MG/ML - (Same as: l Topical 15:29: Xylocaine) Herm jah Cream Lidocaine No Notes: Memori a 40 MG/ML - (Same as: l Topical 15:29: Xylocaine) Herm jah Cream metoprolol No Notes: Memor ia tartrate - (Same as: l 02:00: Lopressor) metoprolol No Notes: Memor ia tartrate - (Same as: l 02:00: Lopressor) metoprolol No Notes: Memor ia tartrate 9- (Same as: l 02:00: Lopressor) metoprolol No Notes: Memor ia tartrate 9- (Same as: l 02:00: Lopressor) Dilaudid No 0.8 mg, Memori a 05 0.8 mL, l 15:36: Route: IV, Drug form: INJ, Q3H, Dosing Weight 129, kg, PRN Pain Score 4-6, Start date: 06/24/17 10:36:00 CDT, Duration: 30 day, Stop date: 07/24/17 10:35:00 CDT Dilaudid 2017-0 No 0.8 mg, Memori a 9-05 0.8 mL, l 15:36: Route: IV, Drug form: INJ, Q3H, Dosing Weight 129, kg, PRN Pain Score 4-6, Start date: 06/24/17 10:36:00 CDT, Duration: 30 day, Stop date: 07/24/17 10:35:00 CDT Dilaudid 2017-0 No 0.8 mg, Memori a 9-05 0.8 mL, l 15:36: Route: IV, Drug form: INJ, Q3H, Dosing Weight 129, kg, PRN Pain Score 4-6, Start date: 06/24/17 10:36:00 CDT, Duration: 30 day, Stop date: 07/24/17 10:35:00 CDT Dilaudid 2017-0 No 0.8 mg, Memori a 9-05 0.8 mL, l 15:36: Route: IV, Drug form: INJ, Q3H, Dosing Weight [...] 30 day, Stop date: 07/23/17 9:00:00 CDT OPANA No OPANA [facility]oria ER (C-II) 06-24 ER l Controlled 02:00: (C-II) Margo nn Med Pt's 00 Controlled Own Med Med Pt's Own Med, 10 mg, 1 tab, Drug form: MISC, Route: PO, BID, 06/23/17 21:00:00 CDT, Duration: 30 day, Stop date: 07/23/17 9:00:00 CDT OPANA 2017-0 No OPANA [facility] ER (C-II) 06-24 ER l Controlled 02:00: (C-II) Margo nn Med Pt's 00 Controlled Own Med Med Pt's Own Med, 10 mg, 1 tab, Drug form: MISC, Route: PO, BID, 06/23/17 21:00:00 CDT, Duration: 30 day, Stop date: 07/23/17 9:00:00 CDT OPANA 2017-0 No OPANA [facility] ER (C-II) 06-24 ER l Controlled 02:00: (C-II) Margo nn Med Pt's 00 Controlled Own Med Med Pt's Own Med, 10 mg, 1 tab, Drug form: MISC, Route: PO, BID, 06/23/17 21:00:00 CDT, Duration: 30 day, Stop date: 07/23/17 9:00:00 CDT Opana 2017-0 No 10 mg, Memoria 06-23 Route: PO, l 22:00: Drug form: [place] 00 TAB, BID, Dosing Weight 129, kg, Start date: 06/23/17 17:00:00 CDT, Duration: 30 day, Stop date: 07/23/17 9:00:00 CDT Opana 2017-0 No 10 mg, Memoria 9- Route: PO, l 22:00: Drug form: [employer] [facility] 00 TAB, BID, Dosing Weight 129, kg, Start date: 06/23/17 17:00:00 CDT, Duration: 30 day, Stop date: 07/23/17 9:00:00 CDT Opana 2017-0 No 10 mg, Memoria 06-23 Route: PO, l 22:00: Drug form: [employer] [facility] 00 TAB, BID, Dosing Weight 129, kg, Start date: 06/23/17 17:00:00 CDT, Duration: 30 day, Stop date: 07/23/17 9:00:00 CDT Opana No 10 mg, Memoria 06-23 Route: PO, l 22:00: Drug form: [place] 00 TAB, BID, Dosing Weight 129, kg, Start date: 06/23/17 17:00:00 CDT, Duration: 30 day, Stop date: 07/23/17 9:00:00 CDT *ATTN RN 2017-0 No *ATTN RN Yonatanor ia please 06-23 please l bring pt 21:00: bring pt Margo home med 00 home med Opana to Opana to pharmacy pharmacy , *ATTN RN, Drug form: MISC, Route: MISC, QSHIFT, 06/23/17 16:00:00 CDT, Duration: 30 day, Stop date: 07/23/17 8:00:00 CDT *ATTAretha BRASHER 2016-0 No *ATTAretha chauhan please 06-23 please l bring pt 21:00: bring pt Margo home med 00 home med Opana to Opana to pharmacy pharmacy , *ATTN RN, Drug form: MISC, Route: MISC, QSHIFT, 06/23/17 16:00:00 CDT, Duration: 30 day, Stop date: 07/23/17 8:00:00 CDT *ATTN RN 2017-0 No *ATTN SAMEERA Tamor ia please 06-23 please l bring pt 21:00: bring pt Margo nn home med 00 home med Opana to Opana to pharmacy pharmacy , *ATTN RN, Drug form: MISC, Route: MISC, QSHIFT, 06/23/17 16:00:00 CDT, Duration: 30 day, Stop date: 07/23/17 8:00:00 CDT *ATTAretha BRASHER 2017-0 No *ATTN SAMEERA Tamor ia please 06-23 please l bring pt 21:00: bring pt Margo nn home med 00 home med Opana to Opana to pharmacy pharmacy , *ATTN RN, Drug form: MISC, Route: MISC, QSHIFT, 06/23/17 16:00:00 CDT, Duration: 30 day, Stop date: 07/23/17 8:00:00 CDT Motrin No Notes: Memoria 9-04 (Same as: l 20:13: Motrin) [facility] "Do Not Crush" Take with food. Motrin No Notes: Memoria 9-04 (Same as: l 20:13: Motrin) [employer] "Do Not Crush" Take with food. Motrin No Notes: Memoria 9-04 (Same as: l 20:13: Motrin) [employer] [facility] 00 "Do Not Crush" Take with food. Motrin No Notes: Memoria 9-04 (Same as: l 20:13: Motrin) [employer] [facility] "Do Not Crush" Take with food. famotidine No Notes: Memor ia 9-04 (Same as: l 20:12: Pepcid) M[facility] 00 famotidine No Notes: Memor ia 9-04 (Same as: l 20:12: Pepcid) [employer] [facility] 00 famotidine No Notes: Memor ia 9-04 (Same as: l 20:12: Pepcid) [employer] [facility] famotidine No Notes: Memor ia 9-04 (Same as: l 20:12: Pepcid) [facility] Famotidine No 1 tab, Memor ia / Ibuprofen 06-23 Route: PO, l 19:30: Drug Form: [facility] 00 TAB, Dosing Weight 129, kg, TID, PRN Pain Score 4-6, Start date: 06/23/17 14:30:00 CDT, Duration: 30 day, Stop date: 07/23/17 14:29:00 CDT Famotidine 0 No 1 tab, Memor ia / Ibuprofen 06-23 Route: PO, l 19:30: Drug Form: [facility] 00 TAB, Dosing Weight 129, kg, TID, PRN Pain Score 4-6, Start date: 06/23/17 14:30:00 CDT, Duration: 30 day, Stop date: 07/23/17 14:29:00 CDT Famotidine 0 No 1 tab, Memor ia / Ibuprofen 9-04 Route: PO, l 19:30: Drug Form: M[facility] 00 TAB, Dosing Weight 129, kg, TID, PRN Pain Score 4-6, Start date: 06/23/17 14:30:00 CDT, Duration: 30 day, Stop date: 07/23/17 14:29:00 CDT Famotidine 2017-0 No 1 tab, Memor ia / Ibuprofen 06-23 Route: PO, l 19:30: Drug Form: M[facility] 00 TAB, Dosing Weight 129, kg, TID, PRN Pain Score 4-6, Start date: 06/23/17 14:30:00 CDT, Duration: 30 day, Stop date: 07/23/17 14:29:00 CDT sodium 2017-0 No 1,000 mL, Memori a chloride 9-04 Rate: 60 l 0.9% 1000 19:29: ml/hr, Tomer n ml INJ 00 Infuse 1,000 mL over: 16.7 hr, Route: IV, Dosing Weight 129 kg, Total Volume: 1,000, Start date: 06/23/17 14:29:00 CDT, Duration: 30 day, Stop date: 07/23/17 14:28:00 CDT sodium 2017-0 No 1,000 mL, Memori a chloride 9-04 Rate: 60 l 0.9% 1000 19:29: ml/hr, Tomer n ml INJ 00 Infuse 1,000 mL over: 16.7 hr, Route: IV, Dosing Weight 129 kg, Total Volume: 1,000, Start date: 06/23/17 14:29:00 CDT, Duration: 30 day, Stop date: 07/23/17 14:28:00 CDT sodium 2017-0 No 1,000 mL, Memori a chloride 9-04 Rate: 60 l 0.9% 1000 19:29: ml/hr, Tomer n ml INJ 00 Infuse 1,000 mL over: 16.7 hr, Route: IV, Dosing Weight 129 kg, Total Volume: 1,000, Start date: 06/23/17 14:29:00 CDT, Duration: 30 day, Stop date: 07/23/17 14:28:00 CDT sodium 2017-0 No 1,000 mL, Memori a chloride 9-04 Rate: 60 l 0.9% 1000 19:29: ml/hr, [...] Oral 00 tab, 0 Tablet Refill(s) [Duexis] Famotidine Yes 1 tab, PO, M emoria 26.6 MG / 06-23 TID, PRN l Ibuprofen 17:02: Pain, # 90 He rmann 800 MG Oral 00 tab, 0 Tablet Refill(s) [Duexis] Famotidine Yes 1 tab, PO, M emoria 26.6 MG / 06-23 TID, PRN l Ibuprofen 17:02: Pain, # 90 He rmann 800 MG Oral 00 tab, 0 Tablet Refill(s) [Duexis] Famotidine Yes 1 tab, PO, M emoria 26.6 MG / 06-23 TID, PRN l Ibuprofen 17:02: Pain, # 90 He rmann 800 MG Oral 00 tab, 0 Tablet Refill(s) [Duexis] Cefazolin No Notes: Memori a 06-23 Same as: l 00:00: Ancef [employer] [facility] 00 Cefazolin No Notes: Memori a 06-23 Same as: l 00:00: Ancef [employer] [facility] Cefazolin No Notes: Memori a 06-23 Same as: l 00:00: Ancef [employer] [facility] Cefazolin No Notes: Memori a 06-23 Same as: l 00:00: Ancef [place] Oxymorphone Yes 10 mg = 1 M emoria Hydrochlori 06-22 tab, PO, l de 10 MG 23:11: BID, 0 [employer] [facility] Oral Tablet 00 Refill(s) [Opana] Oxymorphone Yes 10 mg = 1 M emoria Hydrochlori 9-03 tab, PO, l de 10 MG 23:11: BID, 0 [facility] Oral Tablet 00 Refill(s) [Opana] Oxymorphone Yes 10 mg = 1 M emoria Hydrochlori 9-03 tab, PO, l de 10 MG 23:11: BID, 0 M[facility] Oral Tablet 00 Refill(s) [Opana] Oxymorphone Yes 10 mg = 1 M emoria Hydrochlori 9-03 tab, PO, l de 10 MG 23:11: BID, 0 [employer] [facility] Oral Tablet 00 Refill(s) [Opana] gabapentin No Notes: Memor ia 06-21 (Same as: l 21:00: Neurontin) gabapentin No Notes: Memor ia 06-21 (Same as: l 21:00: Neurontin) gabapentin No Notes: Memor ia 06-21 (Same as: l 21:00: Neurontin) gabapentin No Notes: Memor ia 06-21 (Same as: l 21:00: Neurontin) vancomycin No 2000 mg: Me moria 06-21 infuse l 05:00: over 2.5 [employer] [facility] 00 hours Vancomycin 0 No 1.25 gm, Mem oria 06-21 Route: IV, l 05:00: Q8H, Dosing Weight 129, kg, Start date: 06/21/17 0:00:00 CDT, Duration: 14 day, Stop date: 07/04/17 16:00:00 CDT, Pharmacy to dose, ABX Indication : Bone/Joint Infection vancomycin No 2000 mg: Me moria 06-21 infuse l 05:00: over 2.5 [employer] [facility] [employer] 00 hours Vancomycin 0 No 1.25 gm, Mem oria 06-21 Route: IV, l 05:00: Q8H, Dosing Weight 129, kg, Start date: 06/21/17 0:00:00 CDT, Duration: 14 day, Stop date: 07/04/17 16:00:00 CDT, Pharmacy to dose, ABX Indication : Bone/Joint Infection vancomycin No 2000 mg: Me moria 06-21 infuse l 05:00: over 2.5 [employer] [facility] [employer] 00 hours Vancomycin 2016-0 No 1.25 gm, Mem oria 06-21 Route: IV, l 05:00: Q8H, Moy 00 Dosing Weight 129, kg, Start date: 06/21/17 0:00:00 CDT, Duration: 14 day, Stop date: 07/04/17 16:00:00 CDT, Pharmacy to dose, ABX Indication : Bone/Joint Infection vancomycin No 2001 mg: Me moria 9 infuse l 05:00: over 2.5 [employer] [facility] [employer] 00 hours Vancomycin 2016-0 No 1.25 gm, Mem oria 06-21 Route: IV, l 05:00: Q8H, Moy Dosing Weight 129, kg, Start date: 06/21/17 0:00:00 CDT, Duration: 14 day, Stop date: 07/04/17 16:00:00 CDT, Pharmacy to dose, ABX Indication : Bone/Joint Infection vancomycin 2016- No 2001 mg: Me moria 06-21 infuse l 02:00: over 2.5 [employer] [facility] 00 hours heparin 2017-0 No Notes: Memoria 06-21 porcine l 02:00: heparin [employer] [facility] [employer] 00 Robaxin 2017-0 No Notes: Memoria 06-21 (Same l 02:00: as:Robaxin [employer] [facility] 00 ) vancomycin 2016-0 No 2001 mg: Me moria 06-21 infuse l 02:00: over 2.5 [facility] 00 hours heparin 2017-0 No Notes: Memoria 06-21 porcine l 02:00: heparin [place] 00 Robaxin 2017-0 No Notes: Memoria 06-21 (Same l 02:00: as:Robaxin [employer] [facility] 00 ) vancomycin 2016-0 No 2001 mg: Me moria 9-02 infuse l 02:00: over 2.5 [employer] [facility] [employer] 00 hours heparin 2017-0 No Notes: Memoria - porcine l 02:00: heparin [place] 00 Robaxin 2017-0 No Notes: Memoria - (Same l 02:00: as:Robaxin [facility] 00 ) vancomycin 2016-0 No 2001 mg: Me moria 9-02 infuse l 02:00: over 2.5 [facility] 00 hours heparin 2017-0 No Notes: Memoria - porcine l 02:00: heparin [place] 00 Robaxin 2017-0 No Notes: Memoria 06-21 (Same l 02:00: as:Robaxin ) cefepime No Notes: Memoria 06-21 (Same as: l 01:00: Maxipime) [employer] [facility] [employer] MEDICATION WASTE Product Size: 2000 mg Product Wasted: ___ mg cefepime No Notes: Memoria 06-21 (Same as: l 01:00: Maxipime) [facility] MEDICATION WASTE Product Size: 2000 mg Product Wasted: ___ mg cefepime No Notes: Memoria 06-21 (Same as: l 01:00: Maxipime) [facility] 00 MEDICATION WASTE Product Size: 2000 mg Product Wasted: ___ mg cefepime No Notes: Memoria 06-21 (Same as: l 01:00: Maxipime) [facility] 00 MEDICATION WASTE Product Size: 2000 mg Product Wasted: ___ mg Metformin No Notes: Memori a hydrochlori 06-20 (Same as: l de 1000 MG 22:00: Glucophage H ermann Oral Tablet 00 ) Take with meal Metformin No Notes: Memori a hydrochlori 06-20 (Same as: l de 1000 MG 22:00: Glucophage H ermann Oral Tablet 00 ) Take with meal Metformin No Notes: Memori a hydrochlori 06-20 (Same as: l de 1000 MG 22:00: Glucophage H ermann Oral Tablet 00 ) Take with meal Metformin No Notes: Memori a hydrochlori 06-20 (Same as: l de 1000 MG 22:00: Glucophage H ermann Oral Tablet 00 ) Take with meal gabapentin No Notes: Memor ia 06-20 (Same as: l 21:00: Neurontin) gabapentin No Notes: Memor ia 06-20 (Same as: l 21:00: Neurontin) gabapentin No Notes: Memor ia 06-20 (Same as: l 21:00: Neurontin) gabapentin No Notes: Memor ia 06-20 (Same as: l 21:00: Neurontin) Zosyn 2017-0 No Notes: Memoria 06-20 (Same as: l 19:00: Zosyn) [employer] [facility] [employer] 00 Dosing based on Piperacill in component MEDICATION WASTE Product Size: 3375 mg Product Wasted: ___ mg Zosyn No Notes: Memoria 06-20 (Same as: l 19:00: Zosyn) [employer] [facility] Dosing based on Piperacill in component MEDICATION WASTE Product Size: 3375 mg Product Wasted: ___ mg Zosyn No Notes: Memoria 06-20 (Same as: l 19:00: Zosyn) [facility] Dosing based on Piperacill in component MEDICATION WASTE Product Size: 3375 mg Product Wasted: ___ mg Zosyn No Notes: Memoria 06-20 (Same as: l 19:00: Zosyn) [employer] [facility] [employer] Dosing based on Piperacill in component MEDICATION WASTE Product Size: 3375 mg Product Wasted: ___ mg Vancomycin No 1 Yonatan grajedaori a 06-20 Route: l 18:00: MISC, M[facility] 00 ONCALL, Dosing Weight 129, kg, Start date: 06/20/17 13:00:00 CDT, day, Stop date: 06/20/17 13:00:00 CDT, Pharmacy to dose, ABX Indication : [employer]LS [employer]ER Infection/ Epidural Abcess vancomycin No 2000 mg: Me moria + sodium - infuse l chloride 18:00: over 2.5 Margo nn 0.9% 500 mL 00 hours INJ (for IV MEDICATION set) 500 mL WASTE Product Size: 1000 mg Product Wasted: ___ mg Vancomycin 2016- No 1 nicci Memori a 06-20 Route: l 18:00: MISC, Moy 00 ONCALL, Dosing Weight 129, kg, Start date: 06/20/17 13:00:00 CDT, day, Stop date: 06/20/17 13:00:00 CDT, Pharmacy to dose, ABX Indication : [employer]LS OFF[employer]ER Infection/ Epidural Abcess vancomycin No 2000 mg: Me moria + sodium - infuse l chloride 18:00: over 2.5 Margo nn 0.9% 500 mL 00 hours INJ (for IV MEDICATION set) 500 mL WASTE Product Size: 1000 mg Product Wasted: ___ mg Vancomycin 0 No 1 nicci Memori a 06-20 Route: l 18:00: MISC, [employer] [facility] 00 ONCALL, Dosing Weight 129, kg, Start date: 06/20/17 13:00:00 CDT, day, Stop date: 06/20/17 13:00:00 CDT, Pharmacy to dose, ABX Indication : [employer]LS OFF[employer]ER Infection/ Epidural Abcess vancomycin No 2000 mg: Me moria + sodium 06-20 infuse l chloride 18:00: over 2.5 Margo nn 0.9% 500 mL 00 hours INJ (for IV MEDICATION set) 500 mL WASTE Product Size: 1000 mg Product Wasted: ___ mg Vancomycin No 1 Yonatan grajedaori a 06-20 Route: l 18:00: MISC, [employer] [facility] 00 ONCALL, Dosing Weight 129, kg, Start date: 06/20/17 13:00:00 CDT, day, Stop date: 06/20/17 13:00:00 CDT, Pharmacy to dose, ABX Indication : [employer]ER Infection/ Epidural Abcess vancomycin No 2000 mg: Me moria + sodium 06-20 infuse l chloride 18:00: over 2.5 Margo nn 0.9% 500 mL 00 hours INJ (for IV MEDICATION set) 500 mL WASTE Product Size: 1000 mg Product Wasted: ___ mg Ativan No Notes: Memoria 06-20 (Same as: l 17:28: Ativan) Ativan No Notes: Memoria 06-20 (Same as: l 17:28: Ativan) Ativan No Notes: Memoria 06-20 (Same as: l 17:28: Ativan) Ativan No Notes: Memoria 06-20 (Same as: l 17:28: Ativan) Insulin No Notes: Memoria Lispro 06-20 Roll in l 17:07: palms of hands gently; Do not shake `vigorousl y. (Same as: Humalog ) "Single Patient Use Only " WASTE: F/P - Black; E - Municipal Trash Bin Stable for 28 days at room temperatur e. Expires in days from ____Date Glucagon 2017-0 No 1 mg, Memoria 06-20 Route: IM, l 17:07: Drug form: M[facility] 00 PDR/INJ, PRN, Dosing Weight 129, kg, PRN Blood Glucose Results, Start date: 06/20/17 12:07:00 CDT, Duration: 30 day, Stop date: 07/20/17 12:06:00 CDT Dextrose 2017-0 No 25 gm, 50 Kiko madelin 50% Syringe - mL, Route: l 17:07: IVP, Drug M[facility] 00 Form: INJ, Dosing Weight 129, kg, PRN, PRN Blood Glucose Results, Start date: 06/20/17 12:07:00 CDT, Duration: 30 day, Stop date: 07/20/17 12:06:00 CDT Insulin 2017-0 No Notes: Memoria Lispro 06-20 Roll in l 17:07: palms of [facility] 00 hands gently; Do not shake `vigorousl y. (Same as: Humalog ) "Single Patient Use Only " WASTE: F/P - Black; E - [employer] Trash [facility] Stable for 28 days at room temperatur e. Expires in days from ____Date Glucagon 2017-0 No 1 mg, Memoria 06-20 Route: IM, l 17:07: Drug form: [facility] 00 PDR/INJ, PRN, Dosing Weight 129, kg, PRN Blood Glucose Results, Start date: 06/20/17 12:07:00 CDT, Duration: 30 day, Stop date: 07/20/17 12:06:00 CDT Dextrose 2017-0 No 25 gm, 50 Kiko madelin 50% Syringe 9- mL, Route: l 17:07: IVP, Drug M[facility] 00 Form: INJ, Dosing Weight 129, kg, PRN, PRN Blood Glucose Results, Start date: 06/20/17 12:07:00 CDT, Duration: 30 day, Stop date: 07/20/17 12:06:00 CDT Insulin 2017-0 No Notes: Memoria Lispro - Roll in l 17:07: palms of [place] 00 hands gently; Do not shake `vigorousl y. (Same as: Humalog ) "Single Patient Use Only " WASTE: F/P - Black; E - [employer] Trash Bin Stable for 28 days at room temperatur e. Expires in days from ____Date Glucagon 2017-0 No 1 mg, Memoria 06-20 Route: IM, l 17:07: Drug form: [employer] [facility] 00 PDR/INJ, PRN, Dosing Weight 129, kg, PRN Blood Glucose Results, Start date: 06/20/17 12:07:00 CDT, Duration: 30 day, Stop date: 07/20/17 12:06:00 CDT Dextrose 2017-0 No 25 gm, 50 Kiko madelin 50% Syringe 9-01 mL, Route: l 17:07: IVP, Drug [employer] [facility] [employer] 00 Form: INJ, Dosing Weight 129, kg, PRN, PRN Blood Glucose Results, Start date: 06/20/17 12:07:00 CDT, Duration: 30 day, Stop date: 07/20/17 12:06:00 CDT Insulin 2017-0 No Notes: Memoria Lispro - Roll in l 17:07: palms of [employer] [facility] 00 hands gently; Do not shake `vigorousl y. (Same as: Humalog ) "Single Patient Use Only " WASTE: F/P - Black; E - [facility] Trash Bin Stable for 28 days at room temperatur e. Expires in days from ____Date Glucagon 2017-0 No 1 mg, Memoria 06-20 Route: IM, l 17:07: Drug form: [facility] 00 PDR/INJ, PRN, Dosing Weight 129, kg, PRN Blood Glucose Results, Start date: 06/20/17 12:07:00 CDT, Duration: 30 day, Stop date: 07/20/17 12:06:00 CDT Dextrose 2017-0 No 25 gm, 50 Kiko madelin 50% Syringe 9-01 mL, Route: l 17:07: IVP, Drug [facility] 00 Form: INJ, Dosing Weight 129, kg, PRN, PRN Blood Glucose Results, Start date: 06/20/17 12:07:00 CDT, Duration: 30 day, Stop date: 07/20/17 12:06:00 CDT Robaxin No Notes: Memoria 06-20 (Same l 17:04: as:Robaxin Moy ) Robaxin No Notes: Memoria 06-20 (Same l 17:04: as:Robaxin Moy ) Robaxin No Notes: Memoria 06-20 (Same l 17:04: as:Robaxin [employer] [facility] ) Robaxin No Notes: Memoria 06-20 (Same l 17:04: as:Robaxin Moy ) Acetaminoph No Notes: Do M emoria en 325 MG / 06-20 not exceed l Hydrocodone 17:03: 4gm/day of Moy Bitartrate 00 acetaminop 10 MG Oral hen. (Same Tablet as: Floydada [Floydada 325/10) 10325] Acetaminoph No Notes: Do M emoria en 325 MG / 06-20 not exceed l Hydrocodone 17:03: 4gm/day of Moy Bitartrate 00 acetaminop 10 MG Oral hen. (Same Tablet as: [place] [Floyd[place] 325/10) 10325] Acetaminoph No Notes: Do M emoria en 325 MG / 06-20 not exceed l Hydrocodone 17:03: 4gm/day of Moy Bitartrate 00 acetaminop 10 MG Oral hen. (Same Tablet as: [place] [[place]oyd[place] 325/10) 10325] Acetaminoph No Notes: Do M emoria en 325 MG / 06-20 not exceed l Hydrocodone 17:03: 4gm/day of [employer] [facility] Bitartrate 00 acetaminop 10 MG Oral hen. (Same Tablet as: [place] [Floyd[place] 325/10) 10/325] Dilaudid No 1 mg, 1 Memori a 06-20 mL, Route: l 17:02: IV, Drug form: INJ, Q3H, Dosing Weight 129, kg, PRN Pain Score 6-10, Start date: 06/20/17 12:02:00 CDT, Duration: 30 day, Stop date: 07/20/17 12:01:00 CDT Dilaudid 2017-0 No 1 mg, 1 Memori a 9-01 mL, Route: l 17:02: IV, Drug [employer] [facility] 00 form: INJ, Q3H, Dosing Weight 129, kg, PRN Pain Score 6-10, Start date: 06/20/17 12:02:00 CDT, Duration: 30 day, Stop date: 07/20/17 12:01:00 CDT Dilaudid 2017-0 No 1 mg, 1 Memori a 9-01 mL, Route: l 17:02: IV, Drug [facility] 00 form: INJ, Q3H, Dosing Weight 129, kg, PRN Pain Score 6-10, Start date: 06/20/17 12:02:00 CDT, Duration: 30 day, Stop date: 07/20/17 12:01:00 CDT Dilaudid 2017-0 No 1 mg, 1 Memori a 9-01 mL, Route: l 17:02: IV, Drug [employer] 00 form: INJ, Q3H, Dosing Weight 129, kg, PRN Pain Score 6-10, Start date: 06/20/17 12:02:00 CDT, Duration: 30 day, Stop date: 07/20/17 12:01:00 CDT Tramadol No Notes: Not Mem oria 06-20 to exceed l 17:00: 400mg/day. Moy 00 (Same As: Ultram) Tramadol No Notes: Not Mem oria 06-20 to exceed l 17:00: 400mg/day. Moy 00 (Same As: Ultram) Tramadol No Notes: Not Mem oria 06-20 to exceed l 17:00: 400mg/day. [employer] [facility] 00 (Same As: Ultram) Tramadol No Notes: Not Mem oria 06-20 to exceed l 17:00: 400mg/day. [employer] [facility] [employer] 00 (Same As: Ultram) Insulin No Notes: Memoria regular 06-20 (Same as: l 16:14: Humulin R Moy and NovoLIN R) WASTE: F/P - Black; E - Municipal Trash Bin (Do not shake) Calcium No Notes: Memoria Gluconate 06-20 WASTE: F/P l 16:14: - Sink; E [employer] [facility] - Municipal Trash Bin Sodium No Notes: Memoria polystyrene - (sodium l sulfonate 16:14: polystyren He rmann 00 e sulfonate 15 gm/60 ml KEDAR) Shake well before use. (Same as: Kayexalate , SPS) Dextrose No 25 gm, 50 Kiko madelin 50% Syringe 9- mL, Route: l 16:14: IVP, Drug [facility] 00 Form: INJ, Dosing Weight 129, kg, ONCE, Start date: 06/20/17 11:14:00 CDT, Stop date: 06/20/17 11:14:00 CDT Insulin No Notes: Memoria regular 06-20 (Same as: l 16:14: Humulin R [employer] [facility] [facility] 00 and NovoLIN R) WASTE: F/P - Black; E - Municipal Trash Bin (Do not shake) Calcium No Notes: Memoria Gluconate 06-20 WASTE: F/P l 16:14: - Sink; E [facility] - Municipal Trash Bin Sodium No Notes: Memoria polystyrene - (sodium l sulfonate 16:14: polystyren He rmann 00 e sulfonate 15 gm/60 ml KEDAR) Shake well before use. (Same as: Kayexalate , SPS) Dextrose No 25 gm, 50 Kiko madelin 50% Syringe - mL, Route: l 16:14: IVP, Drug [employer] [facility] [facility] 00 Form: INJ, Dosing Weight 129, kg, ONCE, Start date: 06/20/17 11:14:00 CDT, Stop date: 06/20/17 11:14:00 CDT Insulin No Notes: Memoria regular 06-20 (Same as: l 16:14: Humulin R [place] 00 and NovoLIN R) WASTE: F/P - Black; E - Municipal Trash Bin (Do not shake) Calcium No Notes: Memoria Gluconate 06-20 WASTE: F/P l 16:14: - Sink; E [employer] [facility] [facility] 00 - Municipal Trash Bin Sodium No Notes: Memoria polystyrene 06-20 (sodium l sulfonate 16:14: polystyren He rmann 00 e sulfonate 15 gm/60 ml KEDAR) Shake well before use. (Same as: Kayexalate , SPS) Dextrose No 25 gm, 50 Kiko madelin 50% Syringe - mL, Route: l 16:14: IVP, Drug Form: INJ, Dosing Weight 129, kg, ONCE, Start date: 06/20/17 11:14:00 CDT, Stop date: 06/20/17 11:14:00 CDT Insulin No Notes: Memoria regular 06-20 (Same as: l 16:14: Humulin R and NovoLIN R) WASTE: F/P - Black; E - Municipal Trash Bin (Do not shake) Calcium No Notes: Memoria Gluconate 06-20 WASTE: F/P l 16:14: - Sink; E [employer] [facility] [facility] 00 - Municipal Trash Bin Sodium No Notes: Memoria polystyrene 06-20 (sodium l sulfonate 16:14: polystyren He rm 00 e sulfonate 15 gm/60 ml KEDAR) Shake well before use. (Same as: Kayexalate , SPS) Dextrose No 25 gm, 50 Kiko madelin 50% Syringe 06-20 mL, Route: l 16:14: IVP, Drug Form: INJ, Dosing Weight 129, kg, ONCE, Start date: 06/20/17 11:14:00 CDT, Stop date: 06/20/17 11:14:00 CDT gabapentin No Notes: Memor ia 300 MG Oral 06-20 (Same as: l Capsule 14:00: Neurontin) Herm jah metoprolol No Notes: Memor ia tartrate 06-20 (Same as: l 14:00: Lopressor) gabapentin No Notes: Memor ia 300 MG Oral 06-20 (Same as: l Capsule 14:00: Neurontin) Herm jah metoprolol No Notes: Memor ia tartrate 06-20 (Same as: l 14:00: Lopressor) gabapentin No Notes: Memor ia 300 MG Oral 06-20 (Same as: l Capsule 14:00: Neurontin) Herm jah metoprolol No Notes: Memor ia tartrate 06-20 (Same as: l 14:00: Lopressor) gabapentin No Notes: Memor ia 300 MG Oral 06-20 (Same as: l Capsule 14:00: Neurontin) metoprolol No Notes: Memor ia tartrate 06-20 (Same as: l 14:00: Lopressor) Morphine No Notes: Memoria 06-20 (Same l 13:19: as:[facility] [employer] 00 e Sulfate) Morphine No Notes: Memoria 06-20 (Same l 13:19: as:[facility] [employer] 00 e Sulfate) Morphine No Notes: Memoria 06-20 (Same l 13:19: as:[facility] [employer] e Sulfate) Morphine No Notes: Memoria 06-20 (Same l 13:19: as:[facility] [employer] 00 e Sulfate) lisinopril Yes 20 mg = 1 Me moria 20 mg oral 06-20 tab, PO, l tablet 13:04: Daily, 0 Refill(s) lisinopril Yes 20 mg = 1 Me moria 20 mg oral 06-20 tab, PO, l tablet 13:04: Daily, 0 Refill(s) lisinopril Yes 20 mg = 1 Me moria 20 mg oral 06-20 tab, PO, l tablet 13:04: Daily, 0 Refill(s) lisinopril Yes 20 mg = 1 Me moria 20 mg oral 06-20 tab, PO, l tablet 13:04: Daily, 0 Refill(s) Dilaudid No 0.5 mg, Memori a -01 0.5 mL, l 10:10: Route: IVP, Drug form: INJ, Q4H, Dosing Weight 129, kg, PRN Pain Score 7-10, Start date: 06/20/17 5:10:00 CDT, Duration: 30 day, Stop date: 07/20/17 5:09:00 CDT Dilaudid No 0.5 mg, Memori a 9-01 0.5 mL, l 10:10: Route: [employer] 00 IVP, Drug form: INJ, Q4H, Dosing Weight 129, kg, PRN Pain Score 7-10, Start date: 06/20/17 5:10:00 CDT, Duration: 30 day, Stop date: 07/20/17 5:09:00 CDT Dilaudid 2017-0 No 0.5 mg, Memori a 9-01 0.5 mL, l 10:10: Route: IVP, Drug form: INJ, Q4H, Dosing Weight 129, kg, PRN Pain Score 7-10, Start date: 06/20/17 5:10:00 CDT, Duration: 30 day, Stop date: 07/20/17 5:09:00 CDT Dilaudid 2017-0 No 0.5 mg, Memori a 9-01 0.5 mL, l 10:10: Route: IVP, Drug form: INJ, Q4H, Dosing Weight 129, kg, PRN Pain Score 7-10, Start date: 06/20/17 5:10:00 CDT, Duration: 30 day, Stop date: 07/20/17 5:09:00 CDT Saline No Notes: Memoria Flush 0.9% 06-20 (Same as: l 07:45: BD [place] 00 Posiflush) sodium No 1,000 mL, Memori a [...] as:MORPhin e Sulfate) Acetaminoph No Notes: Do Raoul granado en 06-20 not exceed l 07:45: 4 gm/day. Moy 00 (Same as: Tylenol) Saline No Notes: Memoria Flush 0.9% 06-20 (Same as: l 07:45: BD [place] 00 Posiflush) sodium No 1,000 mL, Memori a chloride 06-20 Rate: 125 l 0.9% 1000 07:45: ml/hr, Tomer n ml INJ 00 Infuse 1,000 mL over: 8 hr, Route: IV, Dosing Weight 129.545 kg, Total Volume: 1,000, Start date: 06/20/17 2:45:00 CDT, Duration: 30 day, Stop date: 07/20/17 2:44:00 CDT Ondansetron No Notes: Kiko madelin 06-20 (Same as: l 07:45: Zofran) Moy 00 MEDICATION WASTE Product Size: 4 mg Product Wasted: ___ mg Morphine No Notes: Memoria 06-20 (Same l 07:45: as:MORPhin [place] 00 e Sulfate) Acetaminoph No Notes: Do M valerya en 06-20 not exceed l 07:45: 4 gm/day. Moy 00 (Same as: Tylenol) Saline No Notes: Memoria Flush 0.9% 06-20 (Same as: l 07:45: BD [employer] [facility] [facility] 00 Posiflush) sodium No 1,000 mL, Memori a chloride 06-20 Rate: 125 l 0.9% 1000 07:45: ml/hr, Tomer n ml INJ 00 Infuse 1,000 mL over: 8 hr, Route: IV, Dosing Weight 129.545 kg, Total Volume: 1,000, Start date: 06/20/17 2:45:00 CDT, Duration: 30 day, Stop date: 07/20/17 2:44:00 CDT Ondansetron No Notes: Kiko madelin 06-20 (Same as: l 07:45: Zofran) [employer] [facility] [employer] 00 MEDICATION WASTE Product Size: 4 mg Product Wasted: ___ mg Morphine No Notes: Memoria 06-20 (Same l 07:45: as:MORPhin [place] 00 e Sulfate) Acetaminoph No Notes: Do M emoria en 06-20 not exceed l 07:45: 4 gm/day. Moy 00 (Same as: Tylenol) Saline No Notes: Memoria Flush 0.9% 06-20 (Same as: l 07:45: BD [place] 00 Posiflush) sodium No 1,000 mL, Memori a chloride 06-20 Rate: 125 l 0.9% 1000 07:45: ml/hr, Tomer n ml INJ 00 Infuse 1,000 mL over: 8 hr, Route: IV, Dosing Weight 129.545 kg, Total Volume: 1,000, Start date: 06/20/17 2:45:00 CDT, Duration: 30 day, Stop date: 07/20/17 2:44:00 CDT Ondansetron No Notes: Kiko madelin 06-20 (Same as: l 07:45: Zofran) [employer] [facility] [employer] 00 MEDICATION WASTE Product Size: 4 mg Product Wasted: ___ mg Morphine No Notes: Memoria 06-20 (Same l 07:45: as:MORPhin [employer] [facility] 00 e Sulfate) Acetaminoph No Notes: Do M emoria en 06-20 not exceed l 07:45: 4 gm/day. Moy 00 (Same as: Tylenol) Morphine No Notes: Memoria 06-20 (Same as: l 03:50: MORPhine [employer] [facility] [employer] 00 Sulfate) Morphine No Notes: Memoria 06-20 (Same as: l 03:50: MORPhine [employer] 00 Sulfate) Morphine No Notes: Memoria 06-20 (Same as: l 03:50: MORPhine [employer] [facility] 00 Sulfate) Morphine No Notes: Memoria 06-20 (Same as: l 03:50: MORPhine [place] 00 Sulfate) Valium No Notes: Memoria 06-20 (Same as: l 03:48: Valium) [facility] 00 WASTE: F/P - Black; E - White/Blue [...] Memoria 06-20 (Same as: l 03:48: Benadryl) Valium No Notes: Memoria 06-20 (Same as: [...] Memoria 06-20 (Same as: l 03:48: Benadryl) Valium No Notes: Memoria 06-20 (Same as: [...] Memoria 06-20 (Same as: l 03:48: Benadryl) Valium No Notes: Memoria 06-20 (Same as: [...] Memoria 06-20 (Same as: l 03:48: Benadryl) [place] 00 Hydrocodone Hydrocodone Yes Deepthi not Common -Acetaminop -Acetaminop [place] defined [facility] Trazodone Trazodone Yes Deepthi 1 tablet Common HCl HCl [place] at bedtime [facility] Tizanidine Tizanidine Yes Deepthi tablet Common HCl HCl [facility] Lyrica Lyrica Yes Deepthi 1 capsule Commo n [facility] Lyrica 200 Lyrica 200 No 1{capsu TID Lyrica 200 MG MG le} MG Hydrocodone Hydrocodone No Hydrocodon -Acetaminop -Acetaminop e-Acetamin hen 10-325 hen 10-325 ophen MG MG 10-325 MG Tizanidine Tizanidine No Tizanidine HCl 4 MG HCl 4 MG HCl 4 MG Trazodone Trazodone No 1{table QD Trazodone HCl 150 MG HCl 150 MG t_at_be HCl 150 MG dtime} Lyrica 200 Lyrica 200 No 1{capsu TID Lyrica 200 MG MG le} MG Trazodone Trazodone No 1{table QD Trazodone HCl 150 MG HCl 150 MG t_at_be HCl 150 MG dtime} Hydrocodone Hydrocodone No Hydrocodon -Acetaminop -Acetaminop e-Acetamin hen 10-325 hen 10-325 ophen MG MG 10-325 MG Tizanidine Tizanidine No Tizanidine HCl 4 MG HCl 4 MG HCl 4 MG Trazodone Trazodone No 1{table QD Trazodone HCl 150 MG HCl 150 MG t_at_be HCl 150 MG dtime} Tizanidine Tizanidine No Tizanidine HCl 4 MG HCl 4 MG HCl 4 MG Hydrocodone Hydrocodone No Hydrocodon -Acetaminop -Acetaminop e-Acetamin hen 10-325 hen 10-325 ophen MG MG 10-325 MG Lyrica 200 Lyrica 200 No 1{capsu TID Lyrica 200 MG MG le} MG Trazodone Trazodone No 1{table QD Trazodone HCl 150 MG HCl 150 MG t_at_be HCl 150 MG dtime} Tizanidine Tizanidine No Tizanidine HCl 4 MG HCl 4 MG HCl 4 MG Hydrocodone Hydrocodone No Hydrocodon -Acetaminop -Acetaminop e-Acetamin hen 10-325 hen 10-325 ophen MG MG 10-325 MG Lyrica 200 Lyrica 200 No 1{capsu TID Lyrica 200 MG MG le} MG Vital Signs Vital Name Observation Time Observation Value Comments Source Systolic blood 2022-03-14 15:31:00 122 mm[Hg[facility] blood 2022-03-14 15:31:00 76 mm[Hg] [facility] Heart rate 2022-03-14 15:31:00 64 /min [facility] Body temperature 2022-03-14 15:31:00 36.72 [facility] Body height 2022-03-14 15:31:00 200.7 cm [facility] Body weight 2022-03-14 15:31:00 127.914 kg [facility] BMI 2022-03-14 15:31:00 31.77 kg/m2 [facility] height 2020-11-01 13:30:00 78.5 [in_i] Common S pirit [facility] weight 2020-11-01 13:30:00 284.8 [lb_av] [facility] temperature 2020-11-01 13:30:00 97.8 [degF] [facility] bmi 2020-11-01 13:30:00 32.49 kg/m2 [facility] S [facility] oximetry 2020-11-01 13:30:00 98 % Common S pirit - [facility] blood pressure 2020-11-01 13:30:00 135 mm[Hg] [facility] - systolic [facility] blood pressure 2020-11-01 13:30:00 81 mm[Hg] [facility] - diastolic [facility] height 2020-09-18 13:00:00 78.5 [in_i] Common S pirit - [facility] weight 2020-09-18 13:00:00 285 [lb_av] Common S pirit [facility] temperature 2020-09-18 13:00:00 97.3 [degF] Common S pirit [facility] bmi 2020-09-18 13:00:00 32.51 kg/m2 Common S pirit [facility] oximetry 2020-09-18 13:00:00 98 % Common S pirit [facility] respiratory rate 2020-09-18 13:00:00 16 /min Comm on [facility] blood pressure 2020-09-18 13:00:00 110 mm[Hg] [facility] - systolic [facility] blood pressure 2020-09-18 13:00:00 62 mm[Hg] [facility] - diastolic [facility] height 2020-07-18 14:40:00 78.5 [in_i] [facility] weight 2020-07-18 14:40:00 283 [lb_av] Common S pirit - [facility] temperature 2020-07-18 14:40:00 98.4 [degF] Common S pirit [facility] bmi 2020-07-18 14:40:00 32.29 kg/m2 Common S pirit [facility] oximetry 2020-07-18 14:40:00 99 % Common S pirit [facility] respiratory rate 2020-07-18 14:40:00 16 /min Comm on [facility] blood pressure 2020-07-18 14:40:00 126 mm[Hg] [facility] - systolic [facility] blood pressure 2020-07-18 14:40:00 79 mm[Hg] [facility] - diastolic [facility] Systolic (mm Hg) 2021-11-13 15:05:00 Kiko rial Moy Diastolic (mm Hg) 2021-11-13 15:05:00 Mem orial [facility] Heart Rate 2021-11-13 15:05:00 [facility] Respitory Rate 2021-11-13 15:05:00 Memori al [facility] Height 2021-11-13 15:05:00 170.18 cm [facility] Weight 2021-11-13 15:05:00 [facility] BMI Calculated 2021-11-13 15:05:00 Memori al [facility] Systolic (mm Hg) 2021-10-02 15:23:00 Kiko rial [place]oy Diastolic (mm Hg) 2021-10-02 15:23:00 Mem orial [facility] Heart Rate 2021-10-02 15:23:00 [facility] Respitory Rate 2021-10-02 15:23:00 Memori al [facility] Height 2021-10-02 15:23:00 200.66 cm [facility] Weight 2021-10-02 15:23:00 [facility] BMI Calculated 2021-10-02 15:23:00 Memori al [place] Systolic (mm Hg) 2021-09-10 20:17:00 Kiko rial Moy Diastolic (mm Hg) 2021-09-10 20:17:00 Mem orial [facility] Heart Rate 2021-09-10 20:17:00 [facility] Respitory Rate 2021-09-10 20:17:00 Memori al [facility] Height 2021-09-10 20:17:00 198.12 cm [facility] Weight 2021-09-10 20:17:00 [facility] BMI Calculated 2021-09-10 20:17:00 Memori al [facility] Systolic (mm Hg) 2021-07-31 13:26:00 Kiko rial [facility] Diastolic (mm Hg) 2021-07-31 13:26:00 Mem orial [facility] Heart Rate 2021-07-31 13:26:00 [facility] Respitory Rate 2021-07-31 13:26:00 Memori al [facility] Height 2021-07-31 13:26:00 198.12 cm [facility] Weight 2021-07-31 13:26:00 [facility] BMI Calculated 2021-07-31 13:26:00 Memori al [place] Systolic (mm Hg) 2021-07-02 18:45:00 Kiko rial Moy Diastolic (mm Hg) 2021-07-02 18:45:00 Mem orial [facility] Heart Rate 2021-07-02 18:45:00 [facility] Respitory Rate 2021-07-02 18:45:00 Memori al [place] Height 2021-07-02 18:45:00 198.12 cm [facility] Weight 2021-07-02 18:45:00 [facility] BMI Calculated 2021-07-02 18:45:00 Memori al [facility] Body height 2021-06-15 19:21:00 200.7 cm [facility] Body weight 2021-06-15 19:21:00 128.368 kg [facility] BMI 2021-06-15 19:21:00 31.88 kg/m2 [facility] Systolic blood 2021-03-20 13:39:00 108 mm[Hg] [facility] pressure Diastolic blood 2021-03-20 13:39:00 69 mm[Hg] [facility] pressure Heart rate 2021-03-20 13:39:00 69 /min [facility] Body temperature 2021-03-20 13:39:00 36.17 Maritza [facility] Respiratory rate 2021-03-20 13:39:00 18 /min [facility] Oxygen saturation in 2021-03-20 13:39:00 97 /min [facility] Arterial blood by Pulse oximetry Weight 2017-10-02 20:30:00 [facility] Height 2017-10-02 20:30:00 [facility] Temperature Oral (F) 2017-10-02 20:30:00 97.6 F [facility] Heart Rate 2017-10-02 20:30:00 [facility] Diastolic (mm Hg) 2017-10-02 20:30:00 Mem orial [facility] Systolic (mm Hg) 2017-10-02 20:30:00 Kiko rial [facility] Weight 2017-09-18 19:25:00 [facility] BMI Calculated 2017-09-18 19:25:00 Memori al [place] Height 2017-09-18 19:25:00 200.66 cm [facility] Weight 2017-09-09 20:45:00 [facility] Height 2017-09-09 20:45:00 [facility] Temperature Oral (F) 2017-09-09 20:45:00 98.2 F [facility] Heart Rate 2017-09-09 20:45:00 [facility] Diastolic (mm Hg) 2017-09-09 20:45:00 Mem orial [facility] Systolic (mm Hg) 2017-09-09 20:45:00 Kiko nicole [facility] Weight 2017-08-19 19:00:00 [facility] Height 2017-08-19 19:00:00 [facility] Temperature Oral (F) 2017-08-19 19:00:00 97.9 F [facility] Heart Rate 2017-08-19 19:00:00 [facility] Diastolic (mm Hg) 2017-08-19 19:00:00 Mem orial [facility] Systolic (mm Hg) 2017-08-19 19:00:00 Kiko nicole [facility] Weight 2017-08-12 18:30:00 [facility] Height 2017-08-12 18:30:00 [facility] [place] [facility] [facility] Temperature Oral (F) 2017-08-12 18:30:00 98.1 F [facility] Heart Rate 2017-08-12 18:30:00 [facility] Diastolic (mm Hg) 2017-08-12 18:30:00 Mem orial [facility] Systolic (mm Hg) 2017-08-12 18:30:00 Kiko nicole [facility] Weight 2017-08-05 19:30:00 [facility] Height 2017-08-05 19:30:00 [facility] [facility] Temperature Oral (F) 2017-08-05 19:30:00 978 F [facility] Heart Rate 2017-08-05 19:30:00 [facility] Diastolic (mm Hg) 2017-08-05 19:30:00 Mem orial [facility] Systolic (mm Hg) 2017-08-05 19:30:00 Kiko nicole [facility] Weight 2017-07-22 18:15:00 [facility] Height 2017-07-22 18:15:00 [facility] Temperature Oral (F) 2017-07-22 18:15:00 98.3 F [facility] Heart Rate 2017-07-22 18:15:00 [facility] Diastolic (mm Hg) 2017-07-22 18:15:00 Mem orial [facility] Systolic (mm Hg) 2017-07-22 18:15:00 Kiko rial [facility] Respitory Rate 2017-07-05 00:47:00 Memori al [facility] Systolic (mm Hg) 2017-07-04 21:00:00 Kiko rial [facility] Diastolic (mm Hg) 2017-07-04 21:00:00 Mem orial [facility] Respitory Rate 2017-07-04 21:00:00 Memori al [facility] Temperature Oral (F) 2017-07-04 21:00:00 97.6 F [facility] Heart Rate 2017-07-04 21:00:00 [facility] Systolic (mm Hg) 2017-07-04 17:00:00 Kiko rial [facility] Diastolic (mm Hg) 2017-07-04 17:00:00 Mem orial [facility] Temperature Oral (F) 2017-07-04 17:00:00 97.9 F [facility] Heart Rate 2017-07-04 17:00:00 [facility] Systolic (mm Hg) 2017-07-04 13:10:00 Kiko rial [facility] Diastolic (mm Hg) 2017-07-04 13:10:00 Mem orial [facility] Heart Rate 2017-07-04 13:10:00 [facility] Temperature Oral (F) 2017-07-04 13:10:00 98.5 F [facility] Respitory Rate 2017-07-04 12:43:00 Memori al [facility] Weight 2017-06-20 08:10:00 [facility] BMI Calculated 2017-06-20 08:10:00 Memori al [facility] Height 2017-06-20 08:10:00 200.66 cm [facility] Heart Rate 2017-06-20 04:48:00 [facility] Systolic (mm Hg) 2017-06-20 04:48:00 Kiko rial Moy Diastolic (mm Hg) 2017-06-20 04:48:00 Mem orial [facility] Respitory Rate 2017-06-20 04:48:00 Memori al [facility] Weight 2017-06-19 21:51:00 [facility] BMI Calculated 2017-06-19 21:51:00 Memori al [facility] Height 2017-06-19 21:51:00 200.66 cm [facility] Temperature Oral (F) 2017-06-19 21:51:00 98.2 F [facility] Respitory Rate 2017-06-19 21:51:00 Radha al [facility] Heart Rate 2017-06-19 21:51:00 [facility] Systolic (mm Hg) 2017-06-19 21:51:00 Kiko rivera M[facility] Diastolic (mm Hg) 2017-06-19 21:51:00 Mem orial [facility] Procedures Procedure Date / Time Performing Clinician Source Performed [id number] 2022-08-22 00:00:00 JONVE [facility] [id number] 2022-08-22 00:00:00 JONVE [facility] [id number] 2022-08-22 00:00:00 JONVE [facility] [id number] 2022-08-22 00:00:00 JONVE [facility] XR LEG LENGTH EVALUATION 2021-06-15 18:52:05 [facility] XR KNEE 3 VW RIGHT 2021-06-15 18:51:50 [facility] IA ARTHROCENTESIS 2021-06-15 18:45:00 [facility] ASPIR&/INJ MAJOR JT/BURSA W/O US XR KNEE 3 VW LEFT 2021-04-13 13:08:26 [facility] POC GLUCOSE 2021-03-20 12:30:00 [facility] MANIPULATION, JOINT, 2021-03-20 12:08:00 [facility] KNEE, WITH INJECTION POC GLUCOSE 2021-03-20 11:57:00 [facility] COVID-19 QUALITATIVE 2021-03-16 14:31:00 [facility] RT-PCR XR CHEST 2 VW 2021-03-13 22:30:27 [facility] ECG PRE/POST OP 2021-03-13 21:55:57 [facility] PROTHROMBIN TIME WITH INR 2021-03-13 21:53:00 Marly Morales [facility] PARTIAL THROMBOPLASTIN 2021-03-13 21:53:00 Marly Morales [facility] TIME (PTT) XR KNEE 3 VW LEFT 2021-03-05 16:28:31 Teddy Allen [facility] Arthroscopy<sup>1</sup> [facility] Laminectomy with spinal [facility] fusion Plan of Care Planned Activity Planned Date Details Comments Source Future Scheduled 2022-08-26 HEPATITIS B VACCINES [facility] Test 08:15:45 (1 of 3 - 3-dose series) [code = HEPATITIS B VACCINES (1 of 3 - 3-dose series)] Future Scheduled 2022-08-26 COVID-19 VACCINE (#1) [facility] Test 08:15:45 [code = COVID-19 VACCINE (#1)] Future Scheduled 2022-08-26 Hepatitis C screening [facility] Test 08:15:45 (procedure) [code = 700333258] Future Scheduled 2022-08-26 COLONOSCOPY SCREENING [facility] Test 08:15:45 [code = COLONOSCOPY SCREENING] Future Scheduled 2022-08-26 SHINGLES VACCINES (1 [facility] Test 08:15:45 of 2) [code = SHINGLES VACCINES (1 of 2)] Future Scheduled 2022-08-26 INFLUENZA VACCINE Method [facility] Test 08:15:45 [code = INFLUENZA VACCINE] Future Scheduled 2022-08-26 HEPATITIS B VACCINES [facility] Test 08:15:45 (1 of 3 - 3-dose series) [code = HEPATITIS B VACCINES (1 of 3 - 3-dose series)] Future Scheduled 2022-08-26 COVID-19 VACCINE (#1) [facility] Test 08:15:45 [code = COVID-19 VACCINE (#1)] Future Scheduled 2022-08-26 Hepatitis C screening [facility] Test 08:15:45 (procedure) [code = 130156528] Future Scheduled 2022-08-26 COLONOSCOPY SCREENING [facility] Test 08:15:45 [code = COLONOSCOPY SCREENING] Future Scheduled 2022-08-26 SHINGLES VACCINES (1 [facility] Test 08:15:45 of 2) [code = SHINGLES VACCINES (1 of 2)] Future Scheduled 2022-08-26 INFLUENZA VACCINE Method is Hospital Test 08:15:45 [code = INFLUENZA VACCINE] Future Scheduled 2022-08-21 HEPATITIS B VACCINES [facility] Test 12:48:59 (1 of 3 - 3-dose series) [code = HEPATITIS B VACCINES (1 of 3 - 3-dose series)] Future Scheduled 2022-08-21 COVID-19 VACCINE (#1) [facility] Test 12:48:59 [code = COVID-19 VACCINE (#1)] Future Scheduled 2022-08-21 Hepatitis C screening [facility] Test 12:48:59 (procedure) [code = [id number]] Future Scheduled 2022-08-21 COLONOSCOPY SCREENING [facility] Test 12:48:59 [code = COLONOSCOPY SCREENING] Future Scheduled 2022-08-21 SHINGLES VACCINES (1 [facility] Test 12:48:59 of 2) [code = SHINGLES VACCINES (1 of 2)] Future Scheduled 2022-08-21 INFLUENZA VACCINE Method is Hospital Test 12:48:59 [code = INFLUENZA VACCINE] Future Scheduled 2021-11-07 COVID-19 VACCINE (1) [facility] Test 13:05:02 [code = COVID-19 VACCINE (1)] Future Scheduled 2021-11-07 Hepatitis C screening [facility] Test 13:05:02 (procedure) [code = [id number]] Future Scheduled 2021-11-07 COLONOSCOPY SCREENING [facility] Test 13:05:02 [code = COLONOSCOPY SCREENING] Future Scheduled 2021-11-07 SHINGLES VACCINES Method is Hospital Test 13:05:02 (#1) [code = SHINGLES VACCINES (#1)] Future Scheduled 2021-11-07 INFLUENZA VACCINE Method [facility] Test 13:05:02 [code = INFLUENZA VACCINE] Encounters Start End Encounter Admission Attending Care Care Encounter Source Date/Time Date/Time Type Type Clinicians Facility Department ID 2021-11-[address] [facility] 12:53[facility]52 Deepthi [id number] [facility] 2021-11[facility] [facility] [id number] Common 12:20:50 Deepthi [id number] [facility] 2021-11-14 [facility] Common 11:48:00 Deepthi [id number] [facility] 2021-11-14 [facility] [id number] Common 11:46:16 [id number] [facility] 2022-09-16 2022-09-16 Outpatient Arnold BANUELOS [facility] [id number] Univers 09:00:00 09:00:00 DARRON meeks [facility] 2022-08-22 2022-08-23 Inpatient SARY Eldridge [facility] MEDI.01 [id number] [facility] 05:22:00 14:36:00 Ulysses 90 [facility] 2022-08-20 2022-08-20 Outpatient [facility] [id number] [facility] 05:31:00 05:31:00 Sushant 94 [facility] 2022-07-30 2022-07-30 Outpatient SARY [facility] [id number] [facility] 08:00:00 08:01:00 Ulysses 30 [facility] 2022-05-02 2022-05-02 Outpatient KULDEEPE_GAVI SUMMERS [facility] [id number] [place] 03:58:00 03:58:00 N 0714 da [facility] 2022-03-14 2022-03-14 Outpatient Arnold BANUELOS [facility] [id number] Univers 10:30:00 10:47:00 DARRON meeks [facility] 2022-03-14 2022-03-14 Office [facility] [id number] Univers 10:30:00 10:47:[address] [facility] [id number] it y of [place] [id number] Jesus as LOGAN?BLEA [id number] [address] MEDICAL OFFICE BUILDING 2022-03-12 2022-03-12 Hospital Radiology [facility] [id number] Univers 07:56:15 23:59:00 Encounter PENG [id number] ity of [place] [id number] [facility] [id number] [address] 2022-03-12 2022-03-12 Outpatient R VIN [facility] [id number] Univers 08:30:00 08:30:00 DARRON ity [facility] 2022-03-12 2022-03-12 Hospital Radiology [facility] [id number] Univers 07:55:37 07:55:37 Encounter [place] [id number] [id number] [facility] [id number] [address] 2022-03-12 2022-03-12 Outpatient R RADIOLOGY [facility] [id number] Univers 07:55:37 07:55:[facility]22-[facility]-12 2022-02-12 Ambulatory nullFlavo MNA [id number] Memoria 14:00:00 14:00:00 Pre-Reg r Neurology 11 l Juan Winter 2022-02-12 2022-02-12 Ambulatory nullFlavo MNA [id number] Memoria 14:00:00 14:00:00 Pre-Reg r Neurology 11 l Juan Winter 2022-02-12 2022-02-12 Outpatient MHIE MHIE [id number] Memoria 09:00:00 09:00:00 11 l [facility] 2022-02-12 2022-02-12 Outpatient CRISTHIAN Nagel MISCHER [id number] 09:00:00 09:00:00 Praveena Chavez 2021-12-13 2021-12-13 Outpatient R RADIOLOGY [facility] [id number] Univers 13:00:00 23:59:00 ity [facility] 2021-12-13 2021-12-13 Outpatient R RADIOLOGY [facility] [id number] Univers 13:00:00 23:59:00 [facility] 2021-12-13 2021-12-13 Outpatient R RADIOLOGY [facility] [id number] Univers 13:00:00 23:59:00 ity [facility] 2021-12-13 2021-12-13 Hospital Radiology [facility] [id number] Univers 12:24:43 23:59:00 Encounter Favio Solaresn [facility] [id number] ity [facility] [id number] [facility] [id number] [facility] [address] ([facility]) 2021-12-10 2021-12-10 [facility] [id number] Univers 15:30:00 15:30:[address] [facility] 2021-12-10 2021-12-10 [facility] [id number] Univers 15:30:00 15:30:[address] [facility] 2021-11-13 2021-11-14 Outpatient nullFlavo MNA [id number] Memoria 15:00:00 05:59:59 r Neurology 10 l Juan Winter 2021-11-13 2021-11-14 Outpatient nullFlavo MNA [id number] [facility] 15:00:00 05:59:59 r Neurology 10 l Juan Winter 2021-11-13 2021-11-13 Outpatient Emelia MHMISCHER MHMISCHER [id number] 09:00:00 23:59:59 Praveena 10 Scott 2021-11-13 2021-11-13 Outpatient MHIE MHIE [id number] [facility] 09:00:00 09:00:00 10 brittaney [facility] 2021-11-09 2021-11-09 Outpatient R RADIOLOGY [facility] [id number] Univers 14:22:03 23:59:00 ity [facility] 2021-11-09 2021-11-09 Hospital Radiology [facility] 1.2.840.114 [id number] Univers 14:15:00 23:59:00 Encounter PENG 350.1.13.10 ity GRETCHEN 4.2.7.2.686 [facility] [phone] [facility] [address] 2021-11-06 2021-11-06 Outpatient R RADIOLOGY [facility] [id number] Univers 00:00:00 00:00:00 ity [facility] 2021-10-02 2021-10-03 Outpatient nullFlavo MNA [id number] Memoria 15:15:00 05:59:59 r Neurology 09 l Juan Winter 2021-10-02 2021-10-03 Outpatient nullFlavo MNA [id number] Memoria 15:15:00 05:59:59 r Neurology 09 l Juan Winter 2021-10-02 2021-10-02 [id number] 09:15:00 23:59:59 Praveena 09 Scott 2021-10-02 2021-10-02 Outpatient MHIE MHIE [id number] Memoria 09:15:00 09:15:00 09 brittaney Winter 2021-09-10 2021-09-11 Outpatient nullFlavo MNA [id number] Memoria 20:15:00 05:59:59 r Neurology 08 l Juan Winter 2021-09-10 2021-09-11 Outpatient nullFlavo MNA [id number] Memoria 20:15:00 05:59:59 r Neurology 08 l Juan Winter 2021-09-10 2021-09-10 [facility] [id number] 14:15:00 23:59:59 Praveena 08 Scott 2021-09-10 2021-09-10 Outpatient MHIE IE [id number] Memoria 14:15:00 14:15:00 08 brittaney Winter 2021-07-31 2021-08-01 Outpatient nullFlavo MNA [id number] Memoria 13:15:00 04:59:59 r Neurology 07 l Juan Winter 2021-07-31 2021-08-01 Outpatient nullFlavo MNA [id number] Memoria 13:15:00 04:59:59 r Neurology 07 l Juan Winter 2021-07-31 2021-07-31 [facility] [id number] 08:15:00 23:59:59 Praveena 07 Scott 2021-07-31 2021-07-31 Outpatient MHIE IE [id number] Memoria 08:15:00 08:15:00 07 brittaney Winter 2021-07-02 2021-07-03 Outpatient nullFlavo MNA [id number] Memoria 18:45:00 04:59:59 r Neurology 06 l Juan Winter 2021-07-02 2021-07-03 Outpatient nullFlavo MNA [id number] Memoria 18:45:00 04:59:59 r Neurology 06 l Juan Matthewann 2021-07-02 2021-07-02 Outpatient Emelia [facility] M[facility]ER [id number] 13:45:00 23:59:59 Praveena 06 Scott 2021-07-02 2021-07-02 Outpatient MHIE IE [id number] [facility] 13:45:00 13:45:00 06 l Moy 2021-06-20 2021-06-20 Orders Rosanne, 1.2.840.1 [id number] Methodi 00:00:00 00:00:00 Only Debbie 35085.1.[address] 3.430.2.7 Hospit a .3.010032 l .8 2021-06-15 2021-06-15 Office Teddy Allen 1.2.840.1 [id number] Methodi 13:34:20 14:37:57 Visit Saad 31184.1.[address] 3.430.2.7 Hospit a .3.905986 l .8 2021-06-15 2021-06-15 Outpatient TEDDY [facility] [id number] Curtis 00:00:00 00:00:[address] 2021-06-15 2021-06-15 Outpatient TEDDY [facility] 2100 [id number] Curtis 00:00:00 00:00:[address] 2021-06-15 2021-06-15 Orders Rosanne, 1.2.840.1 [id number] [id number] Methodi 00:00:00 00:00:00 Only Debbie 56104.1.[address] 3.430.2.7 Hospit a .3.903648 l .8 2021-06-15 2021-06-15 Travel 1.2.840.1 1.2.564.538 4315 [id number] Methodi 00:00:00 00:00:[address] 3.430.2.7 0.2.7.3.698 Ho spita .3.877761 084.8 l .8 2021-06-15 2021-06-15 Orders Rosanne, 1.2.840.1 [id number] Methodi 00:00:00 00:00:00 Only Debbie 70985.1.[address] 3.430.2.7 Hospit a .3.634029 l .8 2021-06-12 2021-06-12 Orders Trent, 1.2.840.1 [id number] Methodi 00:00:00 00:00:00 Only Amanda 25152.1.[address] 3.430.2.7 Hospit a .3.255174 l .8 2021-05-03 2021-05-03 Transcrishmuel Muller, 1.2.840.1 [id number] Methodi 00:00:00 00:00:[address] Orders Elsie 36262.1.[address] 3.430.2.7 Hospit a .3.359773 l .8 2021-04-26 2021-04-26 Abstract Rosanne, 1.2.840.1 [id number] Methodi 00:00:00 00:00:[address] 3.430.2.7 Hospit a .3.541926 l .8 2021-03-13 2021-04-24 Pre-Admmaria [facility] Teddy Allen 1.2.840.1 [id number] Methodi 14:09:30 14:08:42 ion Saad 76852.1.[address] Testing 3.430.2.7 Hospit a .3.773151 l .8 2021-04-13 2021-04-13 [facility] Teddy Allen 1.2.840.1 [id number] Methodi 07:57:20 09:12:34 Visit Saad 67019.1.[address] 3.430.2.7 Hospit a .3.169626 l .8 2021-04-13 2021-04-13 [facility] 2099 [id number] Curtis 00:00:00 00:00:[address] 2021-04-13 2021-04-13 Travel 1.2.840.1 1.2.037.500 0505 [id number] Methodi 00:00:00 00:00:[address] 3.430.2.7 0.2.7.3.698 Ho spita .3.425302 084.8 l .8 2021-04-13 2021-04-13 Orders Rosanne, 1.2.840.1 [id number] 2099 [id number] Methodi 00:00:00 00:00:00 Only Debbie 94814.1.[address] 3.430.2.7 Hospit a .3.348804 l .8 2021-03-27 2021-03-27 Abstract Rosanne, 1.2.840.1 [id number] Methodi 00:00:00 00:00:[address] 3.430.2.7 Hospit a .3.115682 l .8 2021-03-23 2021-03-23 Orders Rosanne, 1.2.840.1 [id number] 2099 [id number] Methodi 00:00:00 00:00:00 Only Debbie 17933.1.[address] 3.430.2.7 Hospit a .3.523682 l .8 2021-03-20 2021-03-20 [facility] Teddy 1.2.840.1 [id number] Methodi 05:28:00 09:05:00 Encounter Saad 96450.1.[address] 3.430.2.7 Hospit a .3.142255 l .8 2021-03-20 2021-03-20 [facility] 1.2.840.1 [id number] Methodi 07:15:00 07:45:[address] 3.430.2.7 Hospit a .3.263636 l .8 2021-03-20 2021-03-20 Anesthesia Yaw Pa 1.2.840.1 [id number] Methodi 07:09:00 07:30:00 Event Marly Morales 27199.1.[address] 3.430.2.7 Hospit a .3.041954 l .8 2021-03-16 2021-03-16 Outpatient [facility] 2099 [id number] Curtis 00:00:00 00:00:[address] 2021-03-16 2021-03-16 [place] 1.2.840.1 [id number] Methodi 00:00:00 00:00:[address] 3.430.2.7 Hospit a .3.974247 l .8 2021-03-15 2021-03-15 Travel 1.2.840.1 1.2.315.053 7387 [id number] Methodi 00:00:00 00:00:[address] 3.430.2.7 0.2.7.3.698 Ho spita .3.910453 084.8 l .8 2021-03-13 2021-03-13 Hospital Joselito, 1.2.840.1 [id number] Methodi 16:00:00 23:59:00 Joon Lopez 64080.1.[address] Devin 3.430.2.7 Hospit a .3.702057 l .8 2021-03-13 2021-03-13 Travel 1.2.840.1 1.2.123.338 1166 [id number] Methodi 00:00:00 00:00:[address] 3.430.2.7 0.2.7.3.698 Ho spita .3.200446 084.8 l .8 2021-03-13 2021-03-13 Orders Rosanne, 1.2.840.1 [id number] Methodi 00:00:00 00:00:00 Only Debbie 76990.1.[address] 3.430.2.7 Hospit a .3.241949 l .8 2021-03-07 2021-03-07 Outpatient R [facility] [id number] Univers 15:40:00 15:40:00 [facility] 2021-03-05 2021-03-05 Office Teddy Allen 1.2.840.1 [id number] Methodi 11:13:37 11:56:19 Visit Saad 21529.1.[address] 3.430.2.7 Hospit a .3.007082 l .8 2021-03-05 2021-03-05 Outpatient T[facility]DY [facility] 2099 [id number] Curtis 00:00:00 00:00:[address] 2021-03-02 2021-03-02 Orders Rosanne, 1.2.840.1 [id number] Methodi 00:00:00 00:00:00 Only Debbie 87190.1.[address] 3.430.2.7 Hospit a .3.836449 l .8 2021-02-28 2021-02-28 Travel 1.2.840.1 1.2.482.988 7395 [id number] Methodi 00:00:00 00:00:[address] 3.430.2.7 0.2.7.3.698 spita .3.063027 084.8 l .8 2021-02-06 2021-02-06 Outpatient R VIN [facility] [id number] Univers 13:30:00 13:30:[address] [facility] 2021-01-26 2021-01-26 (TEL) STLMLC STLMLC [id number] Co mmon 00:00:00 00:00:00 Spirit - [facility] 2020-11-01 2020-11-01 OFFICE STLMLC STLMLC [id number] Co mmon 00:00:00 00:00:00 VISIT NEW [facility] it PT LEVEL 2 - [facility] 2020-09-18 2020-09-18 OFFICE STLMLC STLMLC [id number] Co mmon 00:00:00 00:00:00 VISIT EST Spir it PT LEVEL 3 - [facility] 2020-07-18 2020-07-18 OFFICE STLMLC STLMLC [id number] Co mmon 00:00:00 00:00:00 VISIT EST Spir it PT LEVEL 3 - [facility] 2020-06-14 2020-06-14 Outpatient P[place], [facility] [id number] Curtis 00:00:00 00:00:[address] 2020-06-09 2020-06-09 Outpatient [place], [facility] [id number] Curtis 00:00:00 00:00:[address] 2020-06-09 2020-06-09 [facility], [facility] [id number] Curtis 00:00:00 00:00:[address] 2020-05-29 2020-05-29 Outpatient P[place], [facility] [id number] Curtis 00:00:00 00:00:[address] 2020-05-22 2020-05-25 Inpatient [place], [facility] 021 [id number] Curtis 00:00:00 00:00:[address] 2020-05-18 2020-05-18 Outpatient [place], [facility] [id number] Curtis 00:00:00 00:00:[address] 2020-05-09 2020-05-09 Outpatient [place], [facility] [id number] Curtis 00:00:00 00:00:[address] 2020-04-28 2020-04-28 Outpatient [place], [facility] [id number] Curtis 00:00:00 00:00:[address] 2020-04-28 2020-04-28 Outpatient [place], [facility] [id number] Curtis 00:00:00 00:00:[address] 2020-04-14 2020-04-14 Outpatient INCAVO, [facility] [id number] Curtis 00:00:00 00:00:00 CHILO [address] 2020-04-11 2020-04-11 Outpatient [place], [facility] [id number] Curtis 00:00:00 00:00:[address] 2020-04-05 2020-04-05 Out[facility] [id number] [facility] 16:00:00 16:00:00 t [facility] [address] [facility] 2020-03-31 2020-03-31 Outpatient [facility]DY [facility] [id number] Curtis 00:00:00 00:00:[address] 2020-03-17 2020-03-17 Outpatient TEDDY [facility]EN [facility] [id number] Curtis 00:00:00 00:00:[address] 2020-03-17 2020-03-17 Outpatient TEDDY [facility] [id number] Curtis 00:00:00 00:00:[address] 2019-10-26 2019-10-27 Outpatient nullFlavo MNA [id number] Memoria 14:15:00 05:59:59 r Neurology 05 l Senoia Moy 2019-10-26 2019-10-27 Outpatient nullFlavo MNA [id number] Memoria 14:15:00 05:59:59 r Neurology 05 l Senoia Moy 2019-10-26 2019-10-26 Outpatient CRISTHIAN NagelSCHMARCELO [id number] 08:15:00 23:59:59 Praveena Chavez 2019-10-26 2019-10-26 Ambulatory nullFlavo MNA [id number] Memoria 14:15:00 14:15:00 Pre-Reg r Neurology 04 l Senoia Moy 2019-10-26 2019-10-26 Ambulatory nullFlavo MNA [id number] Memoria 14:15:00 14:15:00 Pre-Reg r Neurology 04 l Juan Winter 2019-10-26 2019-10-26 Outpatient MHIE MHIE [id number] Memoria 08:15:00 08:15:00 04 l Moy 2019-10-26 2019-10-26 Outpatient MHIE MHIE [id number] Memoria 08:15:00 08:15:00 05 l Moy 2019-10-26 2019-10-26 Outpatient CRISTHIAN NagelSCHMARCELO [id number] 08:15:00 08:15:00 Praveenaedel Chavez 2019-10-04 2019-10-04 [facility] [id number] Common 11:00:00 11:00:00 t [facility] [address] [facility] 2019-09-27 2019-09-27 Out[facility] [id number] Common 11:00:00 11:00:[address] [facility] 2018-10-21 2018-10-21 Out[facility] [id number] Common 15:45:00 15:45:00 t [facility] [address] [facility] 2018-09-17 2018-09-17 Out[facility] [id number] Common 14:35:00 14:35:00 t [facility] [address] [facility] 2018-06-04 2018-06-04 Ambulatory nullFlavo MNA [id number] Memoria 14:00:00 14:00:00 Pre-Reg r Neurosurger 03 l y [facility] jah 2018-06-04 2018-06-04 Ambulatory nullFlavo MNA [id number] Memoria 14:00:00 14:00:00 Pre-Reg r Neurosurger 03 l y [facility] jah 2018-06-04 2018-06-04 Outpatient CRISTIN AMARAL [id number] Memoria 09:00:00 09:00:00 03 brittaney Winter 2018-06-04 2018-06-04 [id number] 09:00:00 09:00:00 Pat 03 2017-10-02 2017-10-02 Outpatient [facility] [id number] eClinic 14:30:00 14:30:00 NOCTURNIS NOCTURNISTS [employer] 2017-09-18 2017-09-19 Outpatient nullFlavo MNA [id number] Memoria 15:45:00 05:59:59 r Neurosurger 02 l y [facility] jah 2017-09-18 2017-09-19 Outpatient nullFlavo MNA [id number] Memoria 15:45:00 05:59:59 r Neurosurger 02 [facility] jah 2017-09-18 2017-09-18 [facility] [id number] 09:45:00 23:59:59 Akbar 02 Trice 2017-09-18 2017-09-18 Outpatient MHIE MHIE [id number] Memoria 09:45:00 09:45:00 02 brittaney Winter 2017-09-09 2017-09-09 Outpatient [facility] [id number] eClinic 14:45:00 14:45:00 NOCTURNIS [employer] [employer] 2017-09-05 2017-09-06 [facility] [id number] Memoria 13:48:00 05:59:00 r Moy 03 [facility] 2017-09-05 2017-09-06 Outpatient [facility] [id number] Memoria 13:48:00 05:59:00 r Moy 03 [facility] 2017-09-05 2017-09-[address] [facility] [id number] 07:48:00 23:59:00 Lorrie Hedrick 2017-08-19 2017-08-19 Outpatient [facility] [id number] eClinic 14:00:00 14:00:00 [facility]URNIS [employer] [employer] 2017-08-12 2017-08-12 Outpatient [facility] [id number] eClinic 13:30:00 13:30:00 [employer]IS [employer] [employer] 2017-08-08 2017-08-08 Outpatient MHIE MHIE [id number] Memoria 10:00:00 10:00:00 01 brittaney Winter 2017-08-08 2017-08-08 Outpatient MHIE MHIE [id number] Memoria 10:00:00 10:00:00 01 brittaney Winter 2017-08-05 2017-08-05 Outpatient [facility] [id number] eClinic 14:30:00 14:30:00 NOCTURNIS [employer] [employer] 2017-07-22 2017-07-22 Outpatient [facility] [id number] eClinic 13:15:00 13:15:00 NOCTURNIS [employer]ISTS [employer] 2017-07-14 2017-07-15 Outpatient [facility] [id number] Memoria 14:58:00 04:59:00 r Moy 68 [facility] 2017-07-14 2017-07-15 Outpatient nullFlavo [facility] [id number] Memoria 14:58:00 04:59:00 r Moy 68 [facility] 2017-07-14 2017-07-14 Outpatient CYNTHIA Gandhi [place] [id number] 09:58:00 23:59:00 Colby Gonzalez 2017-07-11 2017-07-11 Outpatient MHIE IE [id number] Memoria 08:45:00 08:45:00 00 [facility] 2017-07-11 2017-07-11 Outpatient MHIE IE [id number] Memoria 08:45:00 08:45:00 00 [facility] 2017-06-20 2017-07-05 Inpatient nullFlavo [facility] [id number] Memoria 20:23:00 02:15:00 r Moy 44 [facility] 2017-06-20 2017-07-05 Inpatient nullFlavo [facility] [id number] Memoria 20:23:00 02:15:00 r Moy 44 [facility] 2017-06-20 2017-07-04 Outpatient PumaDaron humphrey [facility] [id number] 15:23:00 21:15:00 Pete 44 2017-06-19 2017-06-20 Emergency nullFlavo [facility] [id number] Memoria 21:40:00 05:38:[address] [facility] 2017-06-19 2017-06-20 Emergency nullFlavo [facility] [id number] Memoria 21:40:00 05:38:[address] [facility] 2017-06-19 2017-06-[address] 749 [id number] 16:40:00 00:38:00 Popyp 02 Oshanique Results Test Description Test Time Test Comments Results Result Comments Source - XR KNEE 1 OR 2 V 2022-08-22 LT 00:00:00 [facility] RICA RIBEIRO : 1960 Sex: M FAX: Grupo Barton MD [phone] [place]: St: ADM FAX: CarlosTiJacques NP [phone] --- Name: RICA RIBEIRO [facility] : 1960 Age/S: 61/M [address] [place] [address] Unit #: [id number] Loc: [place] [address] Phys: Jacques Gonzalez NP Acct: [id number] Dis Date: Status: ADM IN PHONE #: [phone] Exam Date: 08/22/2022 1221 FAX #: [phone] Reason: s/p left tka EXAMS: CPT CODE: [id number] XR KNEE 1 OR 2 V LT 95839 PROCEDURE INFORMATION: Exam: XR Left Knee Exam date and time: 08/22/2022 12:15 PM Age: 61 years old Clinical indication: Other: S/P left tka TECHNIQUE: Imaging protocol: Radiologic exam of the Left knee. Views: 1 or 2 views. AP and Lateral COMPARISON: CR XR KNEE 1 OR 2 V LT 03/03/2018 2:36 PM FINDINGS: Bones/joints: The patient is status post total left knee replacement. The prostheses appear intact. Soft tissues: There is soft tissue swelling, subcutaneous air, surgical brad and a wound VAC anteriorly. Notes: If there is further concern, recommend follow-up radiographs or MRI for complete assessment. IMPRESSION: Status post total left knee replacement. at 1314 Reported and signed by: Chapito Hernandez M.D. CC: Grupo Barton MD; Jacques Gonzalez NP Technologist: RT Geraldine(Arnold) Trnscrd Date/Time/By: 08/22/2022 (5548) : By: KristiTDO Orig Print D/T: S: 08/22/2022 (6999) PAGE 1 Signed Report CBC W/AUTO DIFF 2022-08-15 12:58:00 Test Item Value Reference Range Interpretation Comme nts WHITE BLOOD CELL (test code = WBC) 3.3 x10 3/uL 4.5-11.0 L RED BLOOD CELL (test code = RBC) 4.93 x10 6/uL 4.00-5.60 N HEMOGLOBIN (test code = HGB) 13.4 g/dL 12.5-16.9 N HEMATOCRIT (test code = HCT) 42.4 % 37.5-50.7 N MEAN CELL VOLUME (test code = MCV) 86.0 fL 81.0-99.0 N MEAN CELL HGB (test code = MCH) 27.2 pg 27.0-33.0 N MEAN CELL HGB CONCETRATION (test code = MCHC) 31.6 g/dL 33.0-37. 0 L RED CELL DISTRIBUTION WIDTH CV (test code = RDW) 13.7 % 11.5- 14.5 N RED CELL DISTRIBUTION WIDTH SD (test code = RDW-SD) 43.1 fL 37 .0-54.0 N PLATELET COUNT (test code = PLT) 184 x10 3/uL 150-400 N MEAN PLATELET VOLUME (test code = MPV) 10.2 fL 7.0-9.0 H NEUTROPHIL % (test code = NT%) 33.9 % 56.0-77.0 L IMMATURE GRANULOCYTE % (test code = IG%) 0.0 % 0.0-2.0 N LYMPHOCYTE % (test code = LY%) 52.9 % 14.0-32.0 H MONOCYTE % (test code = MO%) 9.9 % 4.8-9.0 H EOSINOPHIL % (test code = EO%) 3.0 % 0.3-3.7 N BASOPHIL % (test code = BA%) 0.3 % 0.0-2.0 N NUCLEATED RBC % (test code = NRBC%) 0.0 % 0-0 N NEUTROPHIL # (test code = NT#) 1.13 x10 3/uL 2.0-7.6 L IMMATURE GRANULOCYTE # (test code = IG#) 0.00 x10 3/uL 0.00-0.03 N LYMPHOCYTE # (test code = LY#) 1.76 x10 3/uL 1.0-3.8 N MONOCYTE # (test code = MO#) 0.33 x10 3/uL 0.1-0.8 N EOSINOPHIL # (test code = EO#) 0.10 x10 3/uL 0.0-0.2 N BASOPHIL # (test code = BA#) 0.01 x10 3/uL 0.0-0.2 N NUCLEATED RBC # (test code = NRBC#) 0.00 x10 3/uL 0.0-0.1 N MANUAL DIFF REQUIRED (test code = MDIFF) NO PROTHROMBIN [id number] 12:55:00 Test Item Value Reference Range Interpretation Comments PROTHROMBIN TIME 12.7 SECONDS 9.3-12.9 N PATIENT (test code = PTP) INTERNATIONAL NORMAL 1.1 0.8-1.2 N TARGET INR BY RATIO (test code = INDICATIO N Indication INR) INR1. Prophylax is of venous thrombos is 2.0 - 3.0 (orthoped ic surgery), Proph ylaxis of venous throm bosis (other than hig h-risk surgery), Treat ment of Deep Vein Thrombosis/Pulm onary Embolism, Preve ntion of systemic emb olism - Tissue heart va lves, Acute Myocardia l Infarction (to prevent systemic emboli sm), Valvular heart disease, Atrial Fibrillation, Bileaflet mecha nical valve in aortic position.2. Mec hanical prosthetic valv es (high risk), 2. 5 - 3.5 Presence of Lup us Anticoagulant o r Antiphospholipi d Antibodies, Pre vention of systemic emb olism - Acute Myocardia l Infarction (to prevent recurrent infar ct). BASIC METABOLIC [id number] 09:44:00 Test Item Value Reference Range Interpretation Comments SODIUM (test code = NA) 138 mEq/L 134-147 N POTASSIUM (test code = 4.9 mEq/L 3.4-5.0 N K) CHLORIDE (test code = 104 mEq/L 100-108 N CL) CARBON DIOXIDE (test 28 mEq/l 21-33 N code = CO2) ANION GAP (test code = 11 0-20 N GAP) GLUCOSE (test code = 95 mg/dL 70-110 N GLU) BLOOD UREA NITROGEN 20 mg/dL 7-18 H (test code = BUN) GLOMERULAR FILTRATION 74.0 80-90 L Units of measure = RATE (test code = GFR) ml/mi n/1.73 m2 CREATININE (test code = 1.2 mg/dL 0.6-1.3 N CREAT) CALCIUM (test code = 9.4 mg/dL 8.0-10.5 N CA) CBC W/AUTO [id number] 09:27:00 Test Item Value Reference Range Interpretation Comments WHITE BLOOD CELL (test code = 3.4 x10 3/uL 4.5-11.0 L WBC) RED BLOOD CELL (test code = 5.18 x10 6/uL 4.00-5.60 N RBC) HEMOGLOBIN (test code = HGB) 13.8 g/dL 12.5-16.9 N HEMATOCRIT (test code = HCT) 44.9 % 37.5-50.7 N MEAN CELL VOLUME (test code = 86.7 fL 81.0-99.0 N MCV) MEAN CELL HGB (test code = MCH) 26.6 pg 27.0-33.0 L MEAN CELL HGB CONCETRATION 30.7 g/dL 33.0-37.0 L (test code = MCHC) RED CELL DISTRIBUTION WIDTH CV 14.2 % 11.5-14.5 N (test code = RDW) RED CELL DISTRIBUTION WIDTH SD 45.3 fL 37.0-54.0 N (test code = RDW-SD) PLATELET COUNT (test code = 183 x10 3/uL 150-400 N PLT) MEAN PLATELET VOLUME (test code 9.6 fL 7.0-9.0 H = MPV) NEUTROPHIL % (test code = NT%) 56.7 % 56.0-77.0 N IMMATURE GRANULOCYTE % (test 0.3 % 0.0-2.0 N code = IG%) LYMPHOCYTE % (test code = LY%) 34.7 % 14.0-32.0 H MONOCYTE % (test code = MO%) 7.1 % 4.8-9.0 N EOSINOPHIL % (test code = EO%) 0.9 % 0.3-3.7 N BASOPHIL % (test code = BA%) 0.3 % 0.0-2.0 N NUCLEATED RBC % (test code = 0.0 % 0-0 N NRBC%) NEUTROPHIL # (test code = NT#) 1.91 x10 3/uL 2.0-7.6 L IMMATURE GRANULOCYTE # (test 0.01 x10 3/uL 0.00-0.03 N code = IG#) LYMPHOCYTE # (test code = LY#) 1.17 x10 3/uL 1.0-3.8 N MONOCYTE # (test code = MO#) 0.24 x10 3/uL 0.1-0.8 N EOSINOPHIL # (test code = EO#) 0.03 x10 3/uL 0.0-0.2 N BASOPHIL # (test code = BA#) 0.01 x10 3/uL 0.0-0.2 N NUCLEATED RBC # (test code = 0.00 x10 3/uL 0.0-0.1 N NRBC#) MANUAL DIFF REQUIRED (test code NO = MDIFF) - XR CHEST 2 [id number] 00:00:00 [facility] RICA RIBEIRO TANA : 1960 Sex: M FAX: Grupo Barton MD [phone] [place]: St: PRE FAX: Maria Antonia Goyal Name: RICA RIBEIRO JR [facility] : 1960 Age/S: 61/M [address] [place] [address] Unit #: [id number] Loc: [place] [address] 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 Views: 2 views. PA and Lateral COMPARISON: CR XR CHEST 1V 12/06/2017 3:34 PM FINDINGS: Lungs: There are normal lung volumes without consolidation or interstitial oppacities. Pleural spaces: No pleural effusion. No pneumothorax. Heart/Mediastinum: Theheart size is normal. Bones/joints: No acute abnormality. IMPRESSION: No acute cardiopulmonary process. at 1144 Reported and signed by: Jason Cox M.D. CC: Grupo Barton MD; Maria Antonia Goyal NP Technologist: RT Giancarlo(Arnold) Trnscrd Date/Time/By: 07/30/2022 (1143) : By: [email or web address] Orig Print D/T: S: 07/30/2022 (8489) PAGE 1 Signed ReportPO [id number] 12:32:45 Test Item Value Reference Range Interpretation Comments POC glucose (test code = 106 mg/dL 65-99 H Ope rator Name: [id number]) Ting Acosta ID: [id number] able : No Action Nee ded Lab Interpretation (test Abnormal code = 10321-5) Olena Solorio-CoV-2 (COVID-19) RNA [Presence] in Respiratory specimen by ARY with probe [id number] 23:25:49 Test Item Value Reference Range Interpretation Comments SARS-CoV-2 (COVID-19) RNA Not detected Not-Detected [Presence] in Respiratory specimen by ARY with probe detection (test code = 08907-6) Whether patient is employed in a healthcare setting (test code = 46396-5) Whether the patient has symptoms related to condition of interest (test code = 66346-7) Patient was hospitalized because of this condition (test code = 85481-9) Whether the patient was admitted to intensive care unit (ICU) for condition of interest (test code = 61035-8) Whether patient resides in a congregate care setting (test code = 05417-2) [facility] T[facility]WE[facility] Pre/Post [id number] 00:06:35 Test Item Value Reference Range Interpretation Comments Ventricular rate (test code = 253) Atrial rate (test code = 255) IA interval (test code = 266) QRSD interval (test code = 260) QT interval (test code = 264) QTC interval (test code = 265) P axis 1 (test code = 267) QRS axis 1 (test code = 268) T wave axis (test code = 270) EKG impression (test Normal sinus code = 273) rhythm-Left axis deviation-Abnormal ECG-In automated comparison with ECG of 25-MAY-2020 04:02,-QRS axis shifted left- Olena Solorio-CoV-2 (COVID-19) RNA [Presence] in Respiratory specimen by ARY with probe [id number] 16:40:50 Test Item Value Reference Range Interpretation Comments SARS-CoV-2 (COVID-19) RNA Not detected Not-Detected [Presence] in Respiratory specimen by ARY with probe detection (test code = 48056-1) MICK PRICE coronavirus 2 RNA [Presence] in Respiratory specimen by ARY with probe agnzlfxpe0793-35-08 17:28:08 Test Item Value Reference Range Interpretation Comments SARS coronavirus 2 RNA Not detected Not-Detected [Presence] in Respiratory specimen by ARY with probe detection (test code = 85594-5) [facility]2017-09-12 15:27:00 Test Item Value Reference Range Interpretation Comments eGFR (test code = eGFR) 88 [facility]2017-09-12 15:27:00 Test Item Value Reference Range Interpretation Comments Potassium Lvl (test code = Potassium 4.2 3.5-5.1 Lvl) [facility]2017-09-12 15:27:00 Test Item Value Reference Range Interpretation Comments Chloride Lvl (test code = Chloride Lvl) 96 95-109 [facility]2017-09-12 15:27:00 Test Item Value Reference Range Interpretation Comments CO2 (test code = CO2) 30 24-32 [facility]2017-09-12 15:27:00 Test Item Value Reference Range Interpretation Comments Calcium Lvl (test code = Calcium Lvl) 8.8 8.5-10.5 [facility]2017-09-12 15:27:00 Test Item Value Reference Range Interpretation Comments Glucose Lvl (test code = Glucose Lvl) 235 70-99 [facility]2017-09-12 15:27:00 Test Item Value Reference Range Interpretation Comments BUN (test code = BUN) 12 7-22 [facility]2017-09-12 15:27:00 Test Item Value Reference Range Interpretation Comments Creatinine Lvl (test code = Creatinine 0.95 0.50-1.40 Lvl) [facility]2017-09-12 15:27:00 Test Item Value Reference Range Interpretation Comments Sodium Lvl (test code = Sodium Lvl) 135 135-145 [facility]2017-09-12 15:27:00 Test Item Value Reference Range Interpretation Comments AGAP (test code = AGAP) 13.2 10.0-20.0 [facility]QoovljhPHDVPVMDSU7902-23-48 15:27:00 Test Item Value Reference Range Interpretation Comments MCHC (test code = MCHC) 32.6 32.0-36.0 [facility]woodMamfefwRISCSWDFHM8429-48-67 15:27:00 Test Item Value Reference Range Interpretation Comments MCH (test code = MCH) 26.3 pg 27.0-31.0 [facility]woodXejbhmkDCSVWUGFQN2778-41-13 15:27:00 Test Item Value Reference Range Interpretation Comments MCV (test code = MCV) 80.5 80.0-94.0 [facility]woodVcpzjqyEPTBGXVHKV2121-36-26 15:27:00 Test Item Value Reference Range Interpretation Comments Hct (test code = Hct) 31.2 42.0-54.0 [facility]woodBdhxdciAVFLOBZHBT1829-20-21 15:27:00 Test Item Value Reference Range Interpretation Comments Hgb (test code = Hgb) 10.2 14.0-18.0 [facility]woodKqglopeRYIHZMSFYC6740-37-48 15:27:00 Test Item Value Reference Range Interpretation Comments RBC (test code = RBC) 3.87 4.70-6.10 [facility]woodAdgtjfhQZBQHDKTZY6181-20-22 15:27:00 Test Item Value Reference Range Interpretation Comments MPV (test code = MPV) 7.5 7.4-10.4 [facility]woodXzfprmcTPTDTCRSYT3897-69-15 15:27:00 Test Item Value Reference Range Interpretation Comments Platelet (test code = Platelet) 374 133-450 [facility] KingwoodIzkyrdbRFHBFANZDZ3247-17-26 15:27:00 Test Item Value Reference Range Interpretation Comments RDW (test code = RDW) 14.7 11.5-14.5 [facility]woodHvonckjCIUBPJDVFF1805-61-73 15:27:00 Test Item Value Reference Range Interpretation Comments WBC (test code = WBC) 4.9 3.7-10.4 [facility] KingwoodKapukvfSKOGDAEUBB8608-82-27 15:27:00 Test Item Value Reference Range Interpretation Comments Eosinophils # (test code 0.2 See_Comment [A utomated message] The = Eosinophils #) system whic h generated this result tra nsmitted reference range : <=0.5. The reference r rodney was not used to int erpret this result as normal/abnormal . [facility] KingwoodFotjwogBQBANSTEGF6568-02-35 15:27:00 Test Item Value Reference Range Interpretation Comments Monocytes # (test code 0.2 See_Comment [Aut omated message] The = Monocytes #) system which generated this result tra nsmitted reference range : <=0.8. The reference r rodney was not used to int erpret this result as normal/abnormal . [facility]woodHiflfdpFIFGPMRDNW4355-07-70 15:27:00 Test Item Value Reference Range Interpretation Comments Basophils (test code = 0.7 See_Comment [Aut omated message] The Basophils) system which ge nerated this result tra nsmitted reference range : <=1.0. The reference r rodney was not used to int erpret this result as normal/abnormal . [facility] KingwoodRexdnseWYPJBCSWCO6771-35-42 15:27:00 Test Item Value Reference Range Interpretation Comments Eosinophils (test code = 3.8 See_Comment [A utomated message] The Eosinophils) system which ge nerated this result tra nsmitted reference range : <=4.0. The reference r rodney was not used to int erpret this result as normal/abnormal . [facility]woodJbwunvcWXTLBRBOBT9338-82-18 15:27:00 Test Item Value Reference Range Interpretation Comments Monocytes (test code = Monocytes) 4.9 2.0-12.0 [facility] KingwoodFxxwpktPGWAIUPEMG6125-58-96 15:27:00 Test Item Value Reference Range Interpretation Comments Lymphocytes # (test code = Lymphocytes 1.4 1.0-5.5 #) [facility]woodXxficapFYRXRRCEHQ2088-39-13 15:27:00 Test Item Value Reference Range Interpretation Comments Segs-Bands # (test code = Segs-Bands #) 3.0 1.5-8.1 [facility]woodHirivdxFHQZCKPYQQ9172-35-20 15:27:00 Test Item Value Reference Range Interpretation Comments Lymphocytes (test code = Lymphocytes) 29.4 20.0-40.0 [facility] KingwoodWnrbdehLYWPZHUVUI3744-76-66 15:27:00 Test Item Value Reference Range Interpretation Comments Segs (test code = Segs) 61.2 45.0-75.0 [facility]2017-09-12 15:27:00 Test Item Value Reference Range Interpretation Comments eGFR (test code = eGFR) 88 [facility]2017-09-12 15:27:00 Test Item Value Reference Range Interpretation Comments Potassium Lvl (test code = Potassium 4.2 3.5-5.1 Lvl) [facility]2017-09-12 15:27:00 Test Item Value Reference Range Interpretation Comments Chloride Lvl (test code = Chloride Lvl) 96 95-109 [facility]2017-09-12 15:27:00 Test Item Value Reference Range Interpretation Comments CO2 (test code = CO2) 30 24-32 [facility]2017-09-12 15:27:00 Test Item Value Reference Range Interpretation Comments Calcium Lvl (test code = Calcium Lvl) 8.8 8.5-10.5 [facility]2017-09-12 15:27:00 Test Item Value Reference Range Interpretation Comments Glucose Lvl (test code = Glucose Lvl) 235 70-99 [facility]2017-09-12 15:27:00 Test Item Value Reference Range Interpretation Comments BUN (test code = BUN) 12 7-22 [facility]2017-09-12 15:27:00 Test Item Value Reference Range Interpretation Comments Creatinine Lvl (test code = Creatinine 0.95 0.50-1.40 Lvl) [facility]2017-09-12 15:27:00 Test Item Value Reference Range Interpretation Comments Sodium Lvl (test code = Sodium Lvl) 135 135-145 [facility]2017-09-12 15:27:00 Test Item Value Reference Range Interpretation Comments AGAP (test code = AGAP) 13.2 10.0-20.0 [facility] KingwoodYbqzhftNPATRWZJBD9018-08-43 15:27:00 Test Item Value Reference Range Interpretation Comments MCHC (test code = MCHC) 32.6 32.0-36.0 [facility] KingwoodUdlqslzKVLHKSNBCS6486-63-34 15:27:00 Test Item Value Reference Range Interpretation Comments MCH (test code = MCH) 26.3 pg 27.0-31.0 [facility] KingwoodBebbcbuRBCIHXNJJY7510-57-11 15:27:00 Test Item Value Reference Range Interpretation Comments MCV (test code = MCV) 80.5 80.0-94.0 [facility]woodNiwcfaeJJAKFUIEGC0293-29-37 15:27:00 Test Item Value Reference Range Interpretation Comments Hct (test code = Hct) 31.2 42.0-54.0 [facility]woodPgicxhsIMHVMYMLQE6187-86-54 15:27:00 Test Item Value Reference Range Interpretation Comments Hgb (test code = Hgb) 10.2 14.0-18.0 [facility] KingwoodGavpdohKFIGBCKVXO4024-64-13 15:27:00 Test Item Value Reference Range Interpretation Comments RBC (test code = RBC) 3.87 4.70-6.10 [facility] KingwoodBinzjdaBMWCQSPKZU1931-03-13 15:27:00 Test Item Value Reference Range Interpretation Comments MPV (test code = MPV) 7.5 7.4-10.4 [facility]woodSjtwdiaSBXPUUKUEQ6083-58-70 15:27:00 Test Item Value Reference Range Interpretation Comments Platelet (test code = Platelet) 374 133-450 [facility] KingwoodDxjhysdAOLYRBGYTM8269-96-21 15:27:00 Test Item Value Reference Range Interpretation Comments RDW (test code = RDW) 14.7 11.5-14.5 [facility] KingwoodOeciueaZMTVOKGYXH6519-31-07 15:27:00 Test Item Value Reference Range Interpretation Comments WBC (test code = WBC) 4.9 3.7-10.4 [facility] KingwoodYuydxhrBSHXERFTAJ3075-40-36 15:27:00 Test Item Value Reference Range Interpretation Comments Eosinophils # (test code 0.2 See_Comment [A utomated message] The = Eosinophils #) system wh h generated this result tra nsmitted reference range : <=0.5. The reference r rodney was not used to int erpret this result as normal/abnormal . [facility] KingwoodDiqagruXKZAWJIOCR3709-88-77 15:27:00 Test Item Value Reference Range Interpretation Comments Monocytes # (test code 0.2 See_Comment [Aut omated message] The = Monocytes #) system which generated this result tra nsmitted reference range : <=0.8. The reference r rodney was not used to int erpret this result as normal/abnormal . [facility]woodEpjvjpeAPHKSYJOMH0958-63-72 15:27:00 Test Item Value Reference Range Interpretation Comments Basophils (test code = 0.7 See_Comment [Aut omated message] The Basophils) system which ge nerated this result tra nsmitted reference range : <=1.0. The reference r rodney was not used to int erpret this result as normal/abnormal . [facility] KingwoodIprkvnuMBQDPOMGZQ1372-61-27 15:27:00 Test Item Value Reference Range Interpretation Comments Eosinophils (test code = 3.8 See_Comment [A utomated message] The Eosinophils) system which ge nerated this result tra nsmitted reference range : <=4.0. The reference r rodney was not used to int erpret this result as normal/abnormal . [facility]woodIkmgxxtOEUQGYRJBS2117-26-35 15:27:00 Test Item Value Reference Range Interpretation Comments Monocytes (test code = Monocytes) 4.9 2.0-12.0 [facility] KingwoodHbnqspcYMBHYKXCUV9035-00-04 15:27:00 Test Item Value Reference Range Interpretation Comments Lymphocytes # (test code = Lymphocytes 1.4 1.0-5.5 #) [facility] KingwoodMowjiucINPIKYWTDI5676-49-76 15:27:00 Test Item Value Reference Range Interpretation Comments Segs-Bands # (test code = Segs-Bands #) 3.0 1.5-8.1 [facility] KingwoodLenipenZBTDOITEZE3174-73-57 15:27:00 Test Item Value Reference Range Interpretation Comments Lymphocytes (test code = Lymphocytes) 29.4 20.0-40.0 [facility] KingwoodOiwzzjdXFOEUIZYUV4638-67-48 15:27:00 Test Item Value Reference Range Interpretation Comments Segs (test code = Segs) 61.2 45.0-75.0 [facility]2017-09-12 15:27:00 Test Item Value Reference Range Interpretation Comments eGFR (test code = eGFR) 88 [facility]2017-09-12 15:27:00 Test Item Value Reference Range Interpretation Comments Potassium Lvl (test code = Potassium 4.2 3.5-5.1 Lvl) [facility]2017-09-12 15:27:00 Test Item Value Reference Range Interpretation Comments Chloride Lvl (test code = Chloride Lvl) 96 95-109 [facility]2017-09-12 15:27:00 Test Item Value Reference Range Interpretation Comments CO2 (test code = CO2) 30 24-32 [facility]2017-09-12 15:27:00 Test Item Value Reference Range Interpretation Comments Calcium Lvl (test code = Calcium Lvl) 8.8 8.5-10.5 [facility]2017-09-12 15:27:00 Test Item Value Reference Range Interpretation Comments Glucose Lvl (test code = Glucose Lvl) 235 70-99 [facility]2017-09-12 15:27:00 Test Item Value Reference Range Interpretation Comments BUN (test code = BUN) 12 7-22 [facility]2017-09-12 15:27:00 Test Item Value Reference Range Interpretation Comments Creatinine Lvl (test code = Creatinine 0.95 0.50-1.40 Lvl) [facility]2017-09-12 15:27:00 Test Item Value Reference Range Interpretation Comments Sodium Lvl (test code = Sodium Lvl) 135 135-145 [facility]2017-09-12 15:27:00 Test Item Value Reference Range Interpretation Comments AGAP (test code = AGAP) 13.2 10.0-20.0 [facility] KingwoodTylurzmLWBEQUSKJS3546-03-91 15:27:00 Test Item Value Reference Range Interpretation Comments MCHC (test code = MCHC) 32.6 32.0-36.0 [facility] KingwoodVzonwsbRHZQXLRBTM5805-08-36 15:27:00 Test Item Value Reference Range Interpretation Comments MCH (test code = MCH) 26.3 pg 27.0-31.0 [facility] KingwoodTlzhjekZUDALRATOG7924-93-11 15:27:00 Test Item Value Reference Range Interpretation Comments MCV (test code = MCV) 80.5 80.0-94.0 [facility] KingwoodFdaoouaTATLLPESUM2568-45-41 15:27:00 Test Item Value Reference Range Interpretation Comments Hct (test code = Hct) 31.2 42.0-54.0 [facility] KingwoodAecylwqZLZYOVEIMJ6443-21-96 15:27:00 Test Item Value Reference Range Interpretation Comments Hgb (test code = Hgb) 10.2 14.0-18.0 [facility] KingwoodFlekrvdJYKFQZHLIZ5784-31-40 15:27:00 Test Item Value Reference Range Interpretation Comments RBC (test code = RBC) 3.87 4.70-6.10 [facility] KingwoodNdkahrlCVHFBFWYPQ2772-48-03 15:27:00 Test Item Value Reference Range Interpretation Comments MPV (test code = MPV) 7.5 7.4-10.4 [facility] KingwoodZjzeglnUMCVTEUISG1101-58-23 15:27:00 Test Item Value Reference Range Interpretation Comments Platelet (test code = Platelet) 374 133-450 [facility] KingwoodMxynymmYRYXHAXAKT6342-15-02 15:27:00 Test Item Value Reference Range Interpretation Comments RDW (test code = RDW) 14.7 11.5-14.5 [facility] KingwoodZsgxtnhUSBNVZWIKX1842-84-40 15:27:00 Test Item Value Reference Range Interpretation Comments WBC (test code = WBC) 4.9 3.7-10.4 [facility] KingwoodWmawkwyIZEPIFCRYY0918-57-62 15:27:00 Test Item Value Reference Range Interpretation Comments Eosinophils # (test code 0.2 See_Comment [A utomated message] The = Eosinophils #) system whic h generated this result tra nsmitted reference range : <=0.5. The reference r rodney was not used to int erpret this result as normal/abnormal . [facility]woodGshzfsqWJWUGUIQBQ2121-43-76 15:27:00 Test Item Value Reference Range Interpretation Comments Monocytes # (test code 0.2 See_Comment [Aut omated message] The = Monocytes #) system which generated this result tra nsmitted reference range : <=0.8. The reference r rodney was not used to int erpret this result as normal/abnormal . [facility]woodCppzxyyCNXAFQFSHY2291-28-57 15:27:00 Test Item Value Reference Range Interpretation Comments Basophils (test code = 0.7 See_Comment [Aut omated message] The Basophils) system which ge nerated this result tra nsmitted reference range : <=1.0. The reference r rodney was not used to int erpret this result as normal/abnormal . [facility]woodOdktmwdWTDLZEHBXC4806-49-23 15:27:00 Test Item Value Reference Range Interpretation Comments Eosinophils (test code = 3.8 See_Comment [A utomated message] The Eosinophils) system which ge nerated this result tra nsmitted reference range : <=4.0. The reference r rodney was not used to int erpret this result as normal/abnormal . [facility]woodTgcgjgnTFDTAQVUAZ5975-25-15 15:27:00 Test Item Value Reference Range Interpretation Comments Monocytes (test code = Monocytes) 4.9 2.0-12.0 [facility] KingwoodFzlqtbmSWAEJZNSSV5958-50-71 15:27:00 Test Item Value Reference Range Interpretation Comments Lymphocytes # (test code = Lymphocytes 1.4 1.0-5.5 #) [facility]woodSxhultxAHBSVAXCEH2964-69-32 15:27:00 Test Item Value Reference Range Interpretation Comments Segs-Bands # (test code = Segs-Bands #) 3.0 1.5-8.1 [facility] KingwoodDxvqhaaMXZQWVNSKF2848-58-68 15:27:00 Test Item Value Reference Range Interpretation Comments Lymphocytes (test code = Lymphocytes) 29.4 20.0-40.0 [facility] KingwoodClhxwjdASZNHMMIZZ9557-02-66 15:27:00 Test Item Value Reference Range Interpretation Comments Segs (test code = Segs) 61.2 45.0-75.0 [facility]2017-09-12 15:27:00 Test Item Value Reference Range Interpretation Comments eGFR (test code = eGFR) 88 [facility]2017-09-12 15:27:00 Test Item Value Reference Range Interpretation Comments Potassium Lvl (test code = Potassium 4.2 3.5-5.1 Lvl) [facility]2017-09-12 15:27:00 Test Item Value Reference Range Interpretation Comments Chloride Lvl (test code = Chloride Lvl) 96 95-109 [facility]2017-09-12 15:27:00 Test Item Value Reference Range Interpretation Comments CO2 (test code = CO2) 30 24-32 [facility]2017-09-12 15:27:00 Test Item Value Reference Range Interpretation Comments Calcium Lvl (test code = Calcium Lvl) 8.8 8.5-10.5 [facility]2017-09-12 15:27:00 Test Item Value Reference Range Interpretation Comments Glucose Lvl (test code = Glucose Lvl) 235 70-99 [facility]2017-09-12 15:27:00 Test Item Value Reference Range Interpretation Comments BUN (test code = BUN) 12 7-22 [facility]2017-09-12 15:27:00 Test Item Value Reference Range Interpretation Comments Creatinine Lvl (test code = Creatinine 0.95 0.50-1.40 Lvl) [facility]2017-09-12 15:27:00 Test Item Value Reference Range Interpretation Comments Sodium Lvl (test code = Sodium Lvl) 135 135-145 [facility]2017-09-12 15:27:00 Test Item Value Reference Range Interpretation Comments AGAP (test code = AGAP) 13.2 10.0-20.0 [facility] KingwoodCdwtjebGNOQCKVEQG4071-58-02 15:27:00 Test Item Value Reference Range Interpretation Comments MCHC (test code = MCHC) 32.6 32.0-36.0 [facility] KingwoodKupgraxTPTKMXIENM9868-25-66 15:27:00 Test Item Value Reference Range Interpretation Comments MCH (test code = MCH) 26.3 pg 27.0-31.0 [facility]woodNwtpydbFYKHCZKILQ4032-52-75 15:27:00 Test Item Value Reference Range Interpretation Comments MCV (test code = MCV) 80.5 80.0-94.0 [facility] KingwoodVjmmebnEQIAWKBNFM0446-06-53 15:27:00 Test Item Value Reference Range Interpretation Comments Hct (test code = Hct) 31.2 42.0-54.0 [facility]woodSvqzhofIDBNUZKJMM5831-51-05 15:27:00 Test Item Value Reference Range Interpretation Comments Hgb (test code = Hgb) 10.2 14.0-18.0 [facility]woodPptoznkUFHPRFMUGV3438-93-67 15:27:00 Test Item Value Reference Range Interpretation Comments RBC (test code = RBC) 3.87 4.70-6.10 [facility]woodGxhdlptMMVLCMKPLZ9132-71-81 15:27:00 Test Item Value Reference Range Interpretation Comments MPV (test code = MPV) 7.5 7.4-10.4 [facility] KingwoodMsjtsstQVMPYJMGMR6404-94-41 15:27:00 Test Item Value Reference Range Interpretation Comments Platelet (test code = Platelet) 374 133-450 [facility] KingwoodZhhutfwVLFOOYTTPG8991-28-56 15:27:00 Test Item Value Reference Range Interpretation Comments RDW (test code = RDW) 14.7 11.5-14.5 [facility] KingwoodFangkrxFRLVTFDCDV7061-02-81 15:27:00 Test Item Value Reference Range Interpretation Comments WBC (test code = WBC) 4.9 3.7-10.4 [facility] KingwoodHjqyjvcZFVXPGZXZE2610-70-10 15:27:00 Test Item Value Reference Range Interpretation Comments Eosinophils # (test code 0.2 See_Comment [A utomated message] The = Eosinophils #) system whic h generated this result tra nsmitted reference range : <=0.5. The reference r rodney was not used to int erpret this result as normal/abnormal . [facility] KingwoodMxphdahUZRKSZGSFN6599-94-00 15:27:00 Test Item Value Reference Range Interpretation Comments Monocytes # (test code 0.2 See_Comment [Aut omated message] The = Monocytes #) system which generated this result tra nsmitted reference range : <=0.8. The reference r rodney was not used to int erpret this result as normal/abnormal . [facility] KingwoodQwrrgpdUHWUZEILOW3234-64-73 15:27:00 Test Item Value Reference Range Interpretation Comments Basophils (test code = 0.7 See_Comment [Aut omated message] The Basophils) system which ge nerated this result tra nsmitted reference range : <=1.0. The reference r rodney was not used to int erpret this result as normal/abnormal . [facility] KingwoodHzdyatqBCCFBBBQHA1734-81-30 15:27:00 Test Item Value Reference Range Interpretation Comments Eosinophils (test code = 3.8 See_Comment [A utomated message] The Eosinophils) system which ge nerated this result tra nsmitted reference range : <=4.0. The reference r rodney was not used to int erpret this result as normal/abnormal . [facility]woodXlpumztCCDYZITWXV1225-27-30 15:27:00 Test Item Value Reference Range Interpretation Comments Monocytes (test code = Monocytes) 4.9 2.0-12.0 [facility] KingwoodAvwhhlhGZLBUKIINU9293-53-26 15:27:00 Test Item Value Reference Range Interpretation Comments Lymphocytes # (test code = Lymphocytes 1.4 1.0-5.5 #) [facility] KingwoodDjycdztLUURFUKHPL0133-45-73 15:27:00 Test Item Value Reference Range Interpretation Comments Segs-Bands # (test code = Segs-Bands #) 3.0 1.5-8.1 [facility] KingwoodGnnyzygOXEZYFZTIY0220-48-44 15:27:00 Test Item Value Reference Range Interpretation Comments Lymphocytes (test code = Lymphocytes) 29.4 20.0-40.0 [facility] KingwoodHtfdtnyFDYVYONQBS2380-40-16 15:27:00 Test Item Value Reference Range Interpretation Comments Segs (test code = Segs) 61.2 45.0-75.0 [facility] KingwoodWdvgkjrWGOQHVUFPB8935-04-67 14:00:00 Test Item Value Reference Range Interpretation Comments RDW (test code = RDW) 14.5 11.5-14.5 [facility] KingwoodMutydufOYFUCTMYPW0019-67-39 14:00:00 Test Item Value Reference Range Interpretation Comments MPV (test code = MPV) 7.2 7.4-10.4 [facility] KingwoodKbngouiFULIXSDVSP8661-20-25 14:00:00 Test Item Value Reference Range Interpretation Comments Platelet (test code = Platelet) 366 133-450 [facility]woodNhxwsuuAERPMUKWUK4936-79-65 14:00:00 Test Item Value Reference Range Interpretation Comments Hct (test code = Hct) 29.3 42.0-54.0 [facility]woodTrbdfavMDOMWUGGHC6996-10-00 14:00:00 Test Item Value Reference Range Interpretation Comments RBC (test code = RBC) 3.59 4.70-6.10 [facility]woodCxzaejaFVSYFMZLRC6304-02-97 14:00:00 Test Item Value Reference Range Interpretation Comments Hgb (test code = Hgb) 9.6 14.0-18.0 [facility]woodDzwcvhvYLEKKVWQTJ9926-34-21 14:00:00 Test Item Value Reference Range Interpretation Comments WBC (test code = WBC) 5.5 3.7-10.4 [facility]woodCipsockTOETVYWBOB9091-12-84 14:00:00 Test Item Value Reference Range Interpretation Comments MCHC (test code = MCHC) 32.7 32.0-36.0 [facility]woodHlyaizwBTJOXUMIKS4355-01-60 14:00:00 Test Item Value Reference Range Interpretation Comments MCV (test code = MCV) 81.5 80.0-94.0 [facility]woodTdtnpycGVSSMPQWPN1072-85-46 14:00:00 Test Item Value Reference Range Interpretation Comments MCH (test code = MCH) 26.7 pg 27.0-31.0 [facility]woodCdcbarcHMNYGIWVPC4183-31-56 14:00:00 Test Item Value Reference Range Interpretation Comments Lymphocytes # (test code = Lymphocytes 1.7 1.0-5.5 #) [facility] KingwoodZlslpnvZZGTOUPLUH6331-27-15 14:00:00 Test Item Value Reference Range Interpretation Comments Monocytes # (test code 0.3 See_Comment [Aut omated message] The = Monocytes #) system which generated this result tra nsmitted reference range : <=0.8. The reference r rodney was not used to int erpret this result as normal/abnormal . [facility]woodPclirjqUGQOVDEDGY9723-57-79 14:00:00 Test Item Value Reference Range Interpretation Comments Eosinophils # (test code 0.2 See_Comment [A utomated message] The = Eosinophils #) system whic h generated this result tra nsmitted reference range : <=0.5. The reference r rodney was not used to int erpret this result as normal/abnormal . [facility]woodPazlmfhGYKJGGGJIO3457-76-12 14:00:00 Test Item Value Reference Range Interpretation Comments Basophils (test code = 0.8 See_Comment [Aut omated message] The Basophils) system which ge nerated this result tra nsmitted reference range : <=1.0. The reference r rodney was not used to int erpret this result as normal/abnormal . [facility]woodOqpqutrJWNOUQSRVU2283-38-77 14:00:00 Test Item Value Reference Range Interpretation Comments Segs-Bands # (test code = Segs-Bands #) 3.2 1.5-8.1 [facility]woodVbetuvdZFMIACKNNO7431-07-00 14:00:00 Test Item Value Reference Range Interpretation Comments Monocytes (test code = Monocytes) 5.9 2.0-12.0 [facility] KingwoodFasdmrqMLMDAQKTLW1334-76-66 14:00:00 Test Item Value Reference Range Interpretation Comments Eosinophils (test code = 3.0 See_Comment [A utomated message] The Eosinophils) system which ge nerated this result tra nsmitted reference range : <=4.0. The reference r rodney was not used to int erpret this result as normal/abnormal . [facility]woodStklpfnSHCPOASUDW1268-81-37 14:00:00 Test Item Value Reference Range Interpretation Comments Lymphocytes (test code = Lymphocytes) 31.6 20.0-40.0 [facility]woodHzgkopnYBDSUWZDJA4903-39-88 14:00:00 Test Item Value Reference Range Interpretation Comments Segs (test code = Segs) 58.7 45.0-75.0 [facility]woodRoumxvdKSIFSNKCOW1121-47-18 14:00:00 Test Item Value Reference Range Interpretation Comments RDW (test code = RDW) 14.5 11.5-14.5 [facility]woodQkbhrxfJNNLMMKCIN4620-78-71 14:00:00 Test Item Value Reference Range Interpretation Comments MPV (test code = MPV) 7.2 7.4-10.4 [facility]woodZhtzwxlYKAZCUVXJP7555-46-22 14:00:00 Test Item Value Reference Range Interpretation Comments Platelet (test code = Platelet) 366 133-450 [facility] KingwoodShgiomhLHFEIJYHBI6332-92-14 14:00:00 Test Item Value Reference Range Interpretation Comments Hct (test code = Hct) 29.3 42.0-54.0 [facility]woodZperqnwOCSXUFNDLG1478-94-95 14:00:00 Test Item Value Reference Range Interpretation Comments RBC (test code = RBC) 3.59 4.70-6.10 [facility]woodPhscssuHNBLPBNSUU5020-40-56 14:00:00 Test Item Value Reference Range Interpretation Comments Hgb (test code = Hgb) 9.6 14.0-18.0 [facility]woodDhgnfefKTELWIBGCZ7124-53-09 14:00:00 Test Item Value Reference Range Interpretation Comments WBC (test code = WBC) 5.5 3.7-10.4 [facility]woodAttjqisQGMNLAKWJC3104-55-65 14:00:00 Test Item Value Reference Range Interpretation Comments MCHC (test code = MCHC) 32.7 32.0-36.0 [facility]woodQszwkajLODDUHRJFA0854-56-14 14:00:00 Test Item Value Reference Range Interpretation Comments MCV (test code = MCV) 81.5 80.0-94.0 [facility] KingwoodLtagqvfXYUSGBFTPT9502-06-44 14:00:00 Test Item Value Reference Range Interpretation Comments MCH (test code = MCH) 26.7 pg 27.0-31.0 [facility]woodWiamxrnIFWEHOWNTB6006-62-55 14:00:00 Test Item Value Reference Range Interpretation Comments Lymphocytes # (test code = Lymphocytes 1.7 1.0-5.5 #) [facility]woodHrvgtrdRBOJQOZLZP7587-21-10 14:00:00 Test Item Value Reference Range Interpretation Comments Monocytes # (test code 0.3 See_Comment [Aut omated message] The = Monocytes #) system which generated this result tra nsmitted reference range : <=0.8. The reference r rodney was not used to int erpret this result as normal/abnormal . [facility]woodDcaywmzGZGLIZIUOK7605-77-99 14:00:00 Test Item Value Reference Range Interpretation Comments Eosinophils # (test code 0.2 See_Comment [A utomated message] The = Eosinophils #) system whic h generated this result tra nsmitted reference range : <=0.5. The reference r rodney was not used to int erpret this result as normal/abnormal . [facility]woodVmqxogtXWZUMKUVJL6981-41-35 14:00:00 Test Item Value Reference Range Interpretation Comments Basophils (test code = 0.8 See_Comment [Aut omated message] The Basophils) system which ge nerated this result tra nsmitted reference range : <=1.0. The reference r rodney was not used to int erpret this result as normal/abnormal . [facility]woodGoxunvzRBWCZBQJXO1036-52-95 14:00:00 Test Item Value Reference Range Interpretation Comments Segs-Bands # (test code = Segs-Bands #) 3.2 1.5-8.1 [facility]woodMtgjhjkJATROTLTFY5070-48-27 14:00:00 Test Item Value Reference Range Interpretation Comments Monocytes (test code = Monocytes) 5.9 2.0-12.0 [facility] KingwoodDaggvucZXCSTXVEVW7268-16-82 14:00:00 Test Item Value Reference Range Interpretation Comments Eosinophils (test code = 3.0 See_Comment [A utomated message] The Eosinophils) system which ge nerated this result tra nsmitted reference range : <=4.0. The reference r rodney was not used to int erpret this result as normal/abnormal . [facility]woodDwgbeqmQUDKQFXJUJ6736-56-52 14:00:00 Test Item Value Reference Range Interpretation Comments Lymphocytes (test code = Lymphocytes) 31.6 20.0-40.0 [facility] KingwoodWlyesiwZDCQULLOFP2531-85-45 14:00:00 Test Item Value Reference Range Interpretation Comments Segs (test code = Segs) 58.7 45.0-75.0 [facility]woodVgxulwuJPWYBHUSOD8974-39-37 14:00:00 Test Item Value Reference Range Interpretation Comments RDW (test code = RDW) 14.5 11.5-14.5 [facility]woodVjhvzjmKEQWBHSKZD9699-95-31 14:00:00 Test Item Value Reference Range Interpretation Comments MPV (test code = MPV) 7.2 7.4-10.4 [facility] KingwoodBjojbyiWTDAALNGLP0528-77-72 14:00:00 Test Item Value Reference Range Interpretation Comments Platelet (test code = Platelet) 366 133-450 [facility] KingwoodBcizuwqJVCQMCTEFY4029-33-12 14:00:00 Test Item Value Reference Range Interpretation Comments Hct (test code = Hct) 29.3 42.0-54.0 [facility]woodRoqafhyQAAXZJTQZZ4730-36-52 14:00:00 Test Item Value Reference Range Interpretation Comments RBC (test code = RBC) 3.59 4.70-6.10 [facility]woodFfyztgeVCVHJQWLHA6744-44-04 14:00:00 Test Item Value Reference Range Interpretation Comments Hgb (test code = Hgb) 9.6 14.0-18.0 [facility]woodOzpfxrdQLFLURBSOY1701-26-03 14:00:00 Test Item Value Reference Range Interpretation Comments WBC (test code = WBC) 5.5 3.7-10.4 [facility]woodQyylyelCNLOTNUWTL4361-58-50 14:00:00 Test Item Value Reference Range Interpretation Comments MCHC (test code = MCHC) 32.7 32.0-36.0 [facility]woodFdczotdBRXMTDUZQL7688-47-07 14:00:00 Test Item Value Reference Range Interpretation Comments MCV (test code = MCV) 81.5 80.0-94.0 [facility]woodQbzpjfjQIUUEFPOSB8243-96-78 14:00:00 Test Item Value Reference Range Interpretation Comments MCH (test code = MCH) 26.7 pg 27.0-31.0 [facility]woodUuioeqeDOGPPDJRAR7434-07-21 14:00:00 Test Item Value Reference Range Interpretation Comments Lymphocytes # (test code = Lymphocytes 1.7 1.0-5.5 #) [facility]woodVdjqmjoYITCZBAENQ2970-31-98 14:00:00 Test Item Value Reference Range Interpretation Comments Monocytes # (test code 0.3 See_Comment [Aut omated message] The = Monocytes #) system which generated this result tra nsmitted reference range : <=0.8. The reference r rodney was not used to int erpret this result as normal/abnormal . [facility]woodJeyyqeqYGCZQILICC9536-07-25 14:00:00 Test Item Value Reference Range Interpretation Comments Eosinophils # (test code 0.2 See_Comment [A utomated message] The = Eosinophils #) system whic h generated this result tra nsmitted reference range : <=0.5. The reference r rodney was not used to int erpret this result as normal/abnormal . [facility]woodDeipyenRGCQTEGUWS4784-10-99 14:00:00 Test Item Value Reference Range Interpretation Comments Basophils (test code = 0.8 See_Comment [Aut omated message] The Basophils) system which ge nerated this result tra nsmitted reference range : <=1.0. The reference r rodney was not used to int erpret this result as normal/abnormal . [facility]woodGhyldueDRJYCNKYMB5095-17-61 14:00:00 Test Item Value Reference Range Interpretation Comments Segs-Bands # (test code = Segs-Bands #) 3.2 1.5-8.1 [facility]woodSrwlgonYYBLHBSOEL3783-23-78 14:00:00 Test Item Value Reference Range Interpretation Comments Monocytes (test code = Monocytes) 5.9 2.0-12.0 [facility] KingwoodYxsysliOWYKUYEJUF6128-50-30 14:00:00 Test Item Value Reference Range Interpretation Comments Eosinophils (test code = 3.0 See_Comment [A utomated message] The Eosinophils) system which ge nerated this result tra nsmitted reference range : <=4.0. The reference r rodney was not used to int erpret this result as normal/abnormal . [facility]woodJosmvldNAYBAVQYXR9550-34-71 14:00:00 Test Item Value Reference Range Interpretation Comments Lymphocytes (test code = Lymphocytes) 31.6 20.0-40.0 [facility]woodYcpezotSCSSMLFXMH4845-71-97 14:00:00 Test Item Value Reference Range Interpretation Comments Segs (test code = Segs) 58.7 45.0-75.0 [facility] KingwoodIqhmgkuRSSIYIAGBI7624-54-03 14:00:00 Test Item Value Reference Range Interpretation Comments RDW (test code = RDW) 14.5 11.5-14.5 [facility]woodOuvappkGPPDPRZIJW9971-85-73 14:00:00 Test Item Value Reference Range Interpretation Comments MPV (test code = MPV) 7.2 7.4-10.4 [facility]woodIdtymirDYNMSBCJMH8334-96-71 14:00:00 Test Item Value Reference Range Interpretation Comments Platelet (test code = Platelet) 366 133-450 [facility] KingwoodHwnxydtGESCSAGHVJ8947-86-18 14:00:00 Test Item Value Reference Range Interpretation Comments Hct (test code = Hct) 29.3 42.0-54.0 [facility] KingwoodIosknudUMPUJVORPA3743-61-27 14:00:00 Test Item Value Reference Range Interpretation Comments RBC (test code = RBC) 3.59 4.70-6.10 [facility]woodOxrkbzfBPKUHIOFDQ2705-10-29 14:00:00 Test Item Value Reference Range Interpretation Comments Hgb (test code = Hgb) 9.6 14.0-18.0 [facility] KingwoodZdfobtjUWQFRNKTYO5594-54-78 14:00:00 Test Item Value Reference Range Interpretation Comments WBC (test code = WBC) 5.5 3.7-10.4 [facility]woodZfxfbltMPDHCRTRLF7034-69-76 14:00:00 Test Item Value Reference Range Interpretation Comments MCHC (test code = MCHC) 32.7 32.0-36.0 [facility] KingwoodMtomwhoSTTGJQOGYZ4942-30-53 14:00:00 Test Item Value Reference Range Interpretation Comments MCV (test code = MCV) 81.5 80.0-94.0 [facility]woodKxklxxeBSQTKYKPUK2410-27-70 14:00:00 Test Item Value Reference Range Interpretation Comments MCH (test code = MCH) 26.7 pg 27.0-31.0 [facility]woodDwsxobgRKORCXBKVZ6308-96-86 14:00:00 Test Item Value Reference Range Interpretation Comments Lymphocytes # (test code = Lymphocytes 1.7 1.0-5.5 #) [facility]woodOrnrsggHRWNAYMAQZ3600-71-46 14:00:00 Test Item Value Reference Range Interpretation Comments Monocytes # (test code 0.3 See_Comment [Aut omated message] The = Monocytes #) system which generated this result tra nsmitted reference range : <=0.8. The reference r rodney was not used to int erpret this result as normal/abnormal . [facility]woodInjuxrwLZUHRFSLOX3263-49-18 14:00:00 Test Item Value Reference Range Interpretation Comments Eosinophils # (test code 0.2 See_Comment [A utomated message] The = Eosinophils #) system whic h generated this result tra nsmitted reference range : <=0.5. The reference r rodney was not used to int erpret this result as normal/abnormal . [facility]woodSewynnqKWHSUJEJXW8257-17-62 14:00:00 Test Item Value Reference Range Interpretation Comments Basophils (test code = 0.8 See_Comment [Aut omated message] The Basophils) system which ge nerated this result tra nsmitted reference range : <=1.0. The reference r rodney was not used to int erpret this result as normal/abnormal . [facility] KingwoodChdzbslGDSYSZYXTQ7049-25-15 14:00:00 Test Item Value Reference Range Interpretation Comments Segs-Bands # (test code = Segs-Bands #) 3.2 1.5-8.1 [facility]woodSofemimDRMVPEBCHF9708-05-13 14:00:00 Test Item Value Reference Range Interpretation Comments Monocytes (test code = Monocytes) 5.9 2.0-12.0 [facility] KingwoodEdzeiflZRMBLXFNKI9583-43-26 14:00:00 Test Item Value Reference Range Interpretation Comments Eosinophils (test code = 3.0 See_Comment [A utomated message] The Eosinophils) system which ge nerated this result tra nsmitted reference range : <=4.0. The reference r rodney was not used to int erpret this result as normal/abnormal . [facility]woodYrwnwaaLNPPWTWCSW6483-04-96 14:00:00 Test Item Value Reference Range Interpretation Comments Lymphocytes (test code = Lymphocytes) 31.6 20.0-40.0 [facility]woodKwovdiiMATPCRMEGN3507-50-61 14:00:00 Test Item Value Reference Range Interpretation Comments Segs (test code = Segs) 58.7 45.0-75.0 [facility]2017-09-09 10:55:00 Test Item Value Reference Range Interpretation Comments eGFR (test code = eGFR) 134 [facility]2017-09-09 10:55:00 Test Item Value Reference Range Interpretation Comments AGAP (test code = AGAP) 10.3 10.0-20.0 [facility]2017-09-09 10:55:00 Test Item Value Reference Range Interpretation Comments Calcium Lvl (test code = Calcium Lvl) 6.3 8.5-10.5 [facility]2017-09-09 10:55:00 Test Item Value Reference Range Interpretation Comments Glucose Lvl (test code = Glucose Lvl) 99 70-99 [facility]2017-09-09 10:55:00 Test Item Value Reference Range Interpretation Comments Creatinine Lvl (test code = Creatinine 0.54 0.50-1.40 Lvl) [facility]2017-09-09 10:55:00 Test Item Value Reference Range Interpretation Comments BUN (test code = BUN) 7 7-22 [facility]2017-09-09 10:55:00 Test Item Value Reference Range Interpretation Comments Chloride Lvl (test code = Chloride Lvl) 113 95-109 [facility]2017-09-09 10:55:00 Test Item Value Reference Range Interpretation Comments Potassium Lvl (test code = Potassium 3.3 3.5-5.1 Lvl) [facility]2017-09-09 10:55:00 Test Item Value Reference Range Interpretation Comments CO2 (test code = CO2) 23 24-32 [facility]2017-09-09 10:55:00 Test Item Value Reference Range Interpretation Comments Sodium Lvl (test code = Sodium Lvl) 143 135-145 [facility] KingwoodUkoqhayAFLLSVTMPO3487-30-21 10:55:00 Test Item Value Reference Range Interpretation Comments WBC (test code = WBC) 7.3 3.7-10.4 [facility] KingwoodBdlqgplNOMUJUQXJN4405-33-74 10:55:00 Test Item Value Reference Range Interpretation Comments RBC (test code = RBC) 3.18 4.70-6.10 [facility]woodKixdgnfVTSVFEORXX6778-59-96 10:55:00 Test Item Value Reference Range Interpretation Comments Platelet (test code = Platelet) 291 133-450 [facility] KingwoodJndfyvzLBEEYRHQIX4708-56-61 10:55:00 Test Item Value Reference Range Interpretation Comments RDW (test code = RDW) 14.7 11.5-14.5 [facility]woodTonlftnDXGRCMYQWR2194-63-89 10:55:00 Test Item Value Reference Range Interpretation Comments MPV (test code = MPV) 7.5 7.4-10.4 [facility] KingwoodAynkiydUIHIVQYPIW4495-11-23 10:55:00 Test Item Value Reference Range Interpretation Comments Hct (test code = Hct) 26.0 42.0-54.0 [facility] KingwoodFtesqiqTAAXTTLDKS7063-60-62 10:55:00 Test Item Value Reference Range Interpretation Comments Hgb (test code = Hgb) 8.5 14.0-18.0 [facility] KingwoodFlhrybgWPYMOUNYNX1607-29-92 10:55:00 Test Item Value Reference Range Interpretation Comments MCV (test code = MCV) 81.9 80.0-94.0 [facility] KingwoodFqxsweoLZJYLKOTJT9793-05-46 10:55:00 Test Item Value Reference Range Interpretation Comments MCH (test code = MCH) 26.8 pg 27.0-31.0 [facility] KingwoodMmhoyihHUFUQFKBTW7804-38-21 10:55:00 Test Item Value Reference Range Interpretation Comments MCHC (test code = MCHC) 32.8 32.0-36.0 [facility]woodEnqswxvUQUQUWYSWF5049-53-47 10:55:00 Test Item Value Reference Range Interpretation Comments Basophils (test code = 0.5 See_Comment [Aut omated message] The Basophils) system which ge nerated this result tra nsmitted reference range : <=1.0. The reference r rodney was not used to int erpret this result as normal/abnormal . [facility] KingwoodRajwlbvMRUOOHSVIH6234-36-73 10:55:00 Test Item Value Reference Range Interpretation Comments Monocytes # (test code 0.3 See_Comment [Aut omated message] The = Monocytes #) system which generated this result tra nsmitted reference range : <=0.8. The reference r rodney was not used to int erpret this result as normal/abnormal . [facility]woodIsfqwvlPLZRFCJBDO6603-32-83 10:55:00 Test Item Value Reference Range Interpretation Comments Lymphocytes # (test code = Lymphocytes 1.0 1.0-5.5 #) [facility]woodKclbwouBEFOQSETHU1381-49-71 10:55:00 Test Item Value Reference Range Interpretation Comments Segs-Bands # (test code = Segs-Bands #) 5.9 1.5-8.1 [facility]woodGyjztxlGHVCZAZGSV0160-23-44 10:55:00 Test Item Value Reference Range Interpretation Comments Eosinophils # (test code 0.1 See_Comment [A utomated message] The = Eosinophils #) system whic h generated this result tra nsmitted reference range : <=0.5. The reference r rodney was not used to int erpret this result as normal/abnormal . [facility]woodThizjrhVGRSBXWLLI1237-93-90 10:55:00 Test Item Value Reference Range Interpretation Comments Eosinophils (test code = 1.3 See_Comment [A utomated message] The Eosinophils) system which ge nerated this result tra nsmitted reference range : <=4.0. The reference r rodeny was not used to int erpret this result as normal/abnormal . [facility]woodAiqulhxYDVYKQIRPF3438-40-51 10:55:00 Test Item Value Reference Range Interpretation Comments Segs (test code = Segs) 80.5 45.0-75.0 [facility]woodTedcsnjFLPHMXYWNZ8402-55-53 10:55:00 Test Item Value Reference Range Interpretation Comments Monocytes (test code = Monocytes) 3.9 2.0-12.0 [facility]woodVrqjpzmJHZQUNTLLD9832-37-69 10:55:00 Test Item Value Reference Range Interpretation Comments Lymphocytes (test code = Lymphocytes) 13.8 20.0-40.0 [facility]2017-09-09 10:55:00 Test Item Value Reference Range Interpretation Comments eGFR (test code = eGFR) 134 [facility]2017-09-09 10:55:00 Test Item Value Reference Range Interpretation Comments AGAP (test code = AGAP) 10.3 10.0-20.0 [facility]2017-09-09 10:55:00 Test Item Value Reference Range Interpretation Comments Calcium Lvl (test code = Calcium Lvl) 6.3 8.5-10.5 [facility]2017-09-09 10:55:00 Test Item Value Reference Range Interpretation Comments Glucose Lvl (test code = Glucose Lvl) 99 70-99 [facility]2017-09-09 10:55:00 Test Item Value Reference Range Interpretation Comments Creatinine Lvl (test code = Creatinine 0.54 0.50-1.40 Lvl) [facility]2017-09-09 10:55:00 Test Item Value Reference Range Interpretation Comments BUN (test code = BUN) 7 7-22 [facility]2017-09-09 10:55:00 Test Item Value Reference Range Interpretation Comments Chloride Lvl (test code = Chloride Lvl) 113 95-109 [facility]2017-09-09 10:55:00 Test Item Value Reference Range Interpretation Comments Potassium Lvl (test code = Potassium 3.3 3.5-5.1 Lvl) [facility]2017-09-09 10:55:00 Test Item Value Reference Range Interpretation Comments CO2 (test code = CO2) 23 24-32 [facility]2017-09-09 10:55:00 Test Item Value Reference Range Interpretation Comments Sodium Lvl (test code = Sodium Lvl) 143 135-145 [facility] KingwoodRqwkcvgRXOOMQTNFM6802-87-02 10:55:00 Test Item Value Reference Range Interpretation Comments WBC (test code = WBC) 7.3 3.7-10.4 [facility]woodPjeotloMOSWHCPKEC4097-53-06 10:55:00 Test Item Value Reference Range Interpretation Comments RBC (test code = RBC) 3.18 4.70-6.10 [facility]woodTgirlypPVGGQFMQYX8002-17-56 10:55:00 Test Item Value Reference Range Interpretation Comments Platelet (test code = Platelet) 291 133-450 [facility] KingwoodWbclhrcWHBFSFJNMG2307-30-59 10:55:00 Test Item Value Reference Range Interpretation Comments RDW (test code = RDW) 14.7 11.5-14.5 [facility] KingwoodHtcavlgPIUZNZBBSK9679-80-19 10:55:00 Test Item Value Reference Range Interpretation Comments MPV (test code = MPV) 7.5 7.4-10.4 [facility]YxjjxdsQAKRCTMREW3885-98-50 10:55:00 Test Item Value Reference Range Interpretation Comments Hct (test code = Hct) 26.0 42.0-54.0 [facility]woodQmfqntgJMCAEYJBCM9405-91-75 10:55:00 Test Item Value Reference Range Interpretation Comments Hgb (test code = Hgb) 8.5 14.0-18.0 [facility]woodDjjkubfHWRHRONGRO4984-78-04 10:55:00 Test Item Value Reference Range Interpretation Comments MCV (test code = MCV) 81.9 80.0-94.0 [facility]woodEqvmdneMOMKYVPSEY8790-55-77 10:55:00 Test Item Value Reference Range Interpretation Comments MCH (test code = MCH) 26.8 pg 27.0-31.0 [facility]woodWslpdayOGHWGSHDKF1951-91-01 10:55:00 Test Item Value Reference Range Interpretation Comments MCHC (test code = MCHC) 32.8 32.0-36.0 [facility]woodNghshxcKTYGKIWVVX6785-35-86 10:55:00 Test Item Value Reference Range Interpretation Comments Basophils (test code = 0.5 See_Comment [Aut omated message] The Basophils) system which ge nerated this result tra nsmitted reference range : <=1.0. The reference r rodney was not used to int erpret this result as normal/abnormal . [facility]woodWppskpvKKZSBZMSPZ6357-36-09 10:55:00 Test Item Value Reference Range Interpretation Comments Monocytes # (test code 0.3 See_Comment [Aut omated message] The = Monocytes #) system which generated this result tra nsmitted reference range : <=0.8. The reference r rodney was not used to int erpret this result as normal/abnormal . [facility]woodSmuakiqINPQYTUQPT7229-27-84 10:55:00 Test Item Value Reference Range Interpretation Comments Lymphocytes # (test code = Lymphocytes 1.0 1.0-5.5 #) [facility]woodKempzftBDDOWUIEJK9969-50-71 10:55:00 Test Item Value Reference Range Interpretation Comments Segs-Bands # (test code = Segs-Bands #) 5.9 1.5-8.1 [facility]woodRmemvutGVWLNKMWPL9005-28-08 10:55:00 Test Item Value Reference Range Interpretation Comments Eosinophils # (test code 0.1 See_Comment [A utomated message] The = Eosinophils #) system whic h generated this result tra nsmitted reference range : <=0.5. The reference r rodney was not used to int erpret this result as normal/abnormal . [facility]woodDyiavpcMHJTOVBQQW4067-22-29 10:55:00 Test Item Value Reference Range Interpretation Comments Eosinophils (test code = 1.3 See_Comment [A utomated message] The Eosinophils) system which ge nerated this result tra nsmitted reference range : <=4.0. The reference r rodney was not used to int erpret this result as normal/abnormal . [facility]woodTmnggofAGPNWBMKSA2250-56-24 10:55:00 Test Item Value Reference Range Interpretation Comments Segs (test code = Segs) 80.5 45.0-75.0 [facility]woodEkykogbBRLRLJYFVN4035-31-64 10:55:00 Test Item Value Reference Range Interpretation Comments Monocytes (test code = Monocytes) 3.9 2.0-12.0 [facility] KingwoodBsyuvmrOXLTQXHWYD9718-21-52 10:55:00 Test Item Value Reference Range Interpretation Comments Lymphocytes (test code = Lymphocytes) 13.8 20.0-40.0 [facility]2017-09-09 10:55:00 Test Item Value Reference Range Interpretation Comments eGFR (test code = eGFR) 134 [facility]2017-09-09 10:55:00 Test Item Value Reference Range Interpretation Comments AGAP (test code = AGAP) 10.3 10.0-20.0 [facility]2017-09-09 10:55:00 Test Item Value Reference Range Interpretation Comments Calcium Lvl (test code = Calcium Lvl) 6.3 8.5-10.5 [facility]2017-09-09 10:55:00 Test Item Value Reference Range Interpretation Comments Glucose Lvl (test code = Glucose Lvl) 99 70-99 [facility]2017-09-09 10:55:00 Test Item Value Reference Range Interpretation Comments Creatinine Lvl (test code = Creatinine 0.54 0.50-1.40 Lvl) [facility]2017-09-09 10:55:00 Test Item Value Reference Range Interpretation Comments BUN (test code = BUN) 7 7-22 [facility]2017-09-09 10:55:00 Test Item Value Reference Range Interpretation Comments Chloride Lvl (test code = Chloride Lvl) 113 95-109 [facility]2017-09-09 10:55:00 Test Item Value Reference Range Interpretation Comments Potassium Lvl (test code = Potassium 3.3 3.5-5.1 Lvl) [facility]2017-09-09 10:55:00 Test Item Value Reference Range Interpretation Comments CO2 (test code = CO2) 23 24-32 [facility]2017-09-09 10:55:00 Test Item Value Reference Range Interpretation Comments Sodium Lvl (test code = Sodium Lvl) 143 135-145 [facility]woodOxftsojYKUGJOIKOY0853-24-73 10:55:00 Test Item Value Reference Range Interpretation Comments WBC (test code = WBC) 7.3 3.7-10.4 [facility]woodYhbhlawOLYJBHIYUP4043-31-74 10:55:00 Test Item Value Reference Range Interpretation Comments RBC (test code = RBC) 3.18 4.70-6.10 [facility]woodPcwxwdaFFAGNCFMOA7066-68-06 10:55:00 Test Item Value Reference Range Interpretation Comments Platelet (test code = Platelet) 291 133-450 [facility]woodGofsbjpNQVXEDSUPI1917-32-64 10:55:00 Test Item Value Reference Range Interpretation Comments RDW (test code = RDW) 14.7 11.5-14.5 [facility]woodHcfvavuPLCEWKHDTU8909-31-01 10:55:00 Test Item Value Reference Range Interpretation Comments MPV (test code = MPV) 7.5 7.4-10.4 [facility]woodUqvynrjOJATFYWLES1047-25-82 10:55:00 Test Item Value Reference Range Interpretation Comments Hct (test code = Hct) 26.0 42.0-54.0 [facility]woodMmkydntWWGFHPGZVI7703-69-90 10:55:00 Test Item Value Reference Range Interpretation Comments Hgb (test code = Hgb) 8.5 14.0-18.0 [facility] KingwoodZkdidpjOSJELZACWD5167-85-02 10:55:00 Test Item Value Reference Range Interpretation Comments MCV (test code = MCV) 81.9 80.0-94.0 [facility]woodSlkgmrjKTOWLVWEJT4103-22-29 10:55:00 Test Item Value Reference Range Interpretation Comments MCH (test code = MCH) 26.8 pg 27.0-31.0 [facility]woodYroxmldFHOFLROYXO2774-32-17 10:55:00 Test Item Value Reference Range Interpretation Comments MCHC (test code = MCHC) 32.8 32.0-36.0 [facility]woodGtubzfqLTHEZDHTXN0115-12-28 10:55:00 Test Item Value Reference Range Interpretation Comments Basophils (test code = 0.5 See_Comment [Aut omated message] The Basophils) system which ge nerated this result tra nsmitted reference range : <=1.0. The reference r rodney was not used to int erpret this result as normal/abnormal . [facility]woodHsrhfpoZHNHEKLVYW5720-12-53 10:55:00 Test Item Value Reference Range Interpretation Comments Monocytes # (test code 0.3 See_Comment [Aut omated message] The = Monocytes #) system which generated this result tra nsmitted reference range : <=0.8. The reference r rodney was not used to int erpret this result as normal/abnormal . [facility]woodTmtoqpgZWFQBGUHRO6538-85-64 10:55:00 Test Item Value Reference Range Interpretation Comments Lymphocytes # (test code = Lymphocytes 1.0 1.0-5.5 #) [facility]woodMqdppluNSPWYPUJUX6687-71-02 10:55:00 Test Item Value Reference Range Interpretation Comments Segs-Bands # (test code = Segs-Bands #) 5.9 1.5-8.1 [facility]woodYswdmtdCRUCUKFBSJ8611-61-65 10:55:00 Test Item Value Reference Range Interpretation Comments Eosinophils # (test code 0.1 See_Comment [A utomated message] The = Eosinophils #) system whic h generated this result tra nsmitted reference range : <=0.5. The reference r rodney was not used to int erpret this result as normal/abnormal . [facility]woodEannmkkAQLVYKIQDR9998-06-81 10:55:00 Test Item Value Reference Range Interpretation Comments Eosinophils (test code = 1.3 See_Comment [A utomated message] The Eosinophils) system which ge nerated this result tra nsmitted reference range : <=4.0. The reference r rodney was not used to int erpret this result as normal/abnormal . [facility]woodWnifkmvNKHBTWUBVD0429-16-36 10:55:00 Test Item Value Reference Range Interpretation Comments Segs (test code = Segs) 80.5 45.0-75.0 [facility]woodEpnfleaITJEECAUHN2743-53-53 10:55:00 Test Item Value Reference Range Interpretation Comments Monocytes (test code = Monocytes) 3.9 2.0-12.0 [facility]woodZqxujfzAWIBTRHKAZ6423-63-59 10:55:00 Test Item Value Reference Range Interpretation Comments Lymphocytes (test code = Lymphocytes) 13.8 20.0-40.0 [facility]2017-09-09 10:55:00 Test Item Value Reference Range Interpretation Comments eGFR (test code = eGFR) 134 [facility]2017-09-09 10:55:00 Test Item Value Reference Range Interpretation Comments AGAP (test code = AGAP) 10.3 10.0-20.0 [facility]2017-09-09 10:55:00 Test Item Value Reference Range Interpretation Comments Calcium Lvl (test code = Calcium Lvl) 6.3 8.5-10.5 [facility]2017-09-09 10:55:00 Test Item Value Reference Range Interpretation Comments Glucose Lvl (test code = Glucose Lvl) 99 70-99 [facility]2017-09-09 10:55:00 Test Item Value Reference Range Interpretation Comments Creatinine Lvl (test code = Creatinine 0.54 0.50-1.40 Lvl) [facility]2017-09-09 10:55:00 Test Item Value Reference Range Interpretation Comments BUN (test code = BUN) 7 7-22 [facility]2017-09-09 10:55:00 Test Item Value Reference Range Interpretation Comments Chloride Lvl (test code = Chloride Lvl) 113 95-109 [facility]2017-09-09 10:55:00 Test Item Value Reference Range Interpretation Comments Potassium Lvl (test code = Potassium 3.3 3.5-5.1 Lvl) [facility]2017-09-09 10:55:00 Test Item Value Reference Range Interpretation Comments CO2 (test code = CO2) 23 24-32 [facility]2017-09-09 10:55:00 Test Item Value Reference Range Interpretation Comments Sodium Lvl (test code = Sodium Lvl) 143 135-145 [facility]woodFjqupttVPCNIINCOC0379-36-16 10:55:00 Test Item Value Reference Range Interpretation Comments WBC (test code = WBC) 7.3 3.7-10.4 [facility]woodSaowufoQIJOHNQMXY2940-78-99 10:55:00 Test Item Value Reference Range Interpretation Comments RBC (test code = RBC) 3.18 4.70-6.10 [facility]woodKabaqkjULZGSYZMQX8143-52-27 10:55:00 Test Item Value Reference Range Interpretation Comments Platelet (test code = Platelet) 291 133-450 [facility]woodEgbnxjoFQVDIORCCD0995-08-15 10:55:00 Test Item Value Reference Range Interpretation Comments RDW (test code = RDW) 14.7 11.5-14.5 [facility]woodJxgpwhpKZWCPKMJOI8273-90-55 10:55:00 Test Item Value Reference Range Interpretation Comments MPV (test code = MPV) 7.5 7.4-10.4 [facility]woodKdoiscnDSCBAJJAYS8773-09-57 10:55:00 Test Item Value Reference Range Interpretation Comments Hct (test code = Hct) 26.0 42.0-54.0 [facility]woodHtxwlsfGOWGSFDAMT3676-65-70 10:55:00 Test Item Value Reference Range Interpretation Comments Hgb (test code = Hgb) 8.5 14.0-18.0 [facility]woodAscexjkKTOKTVYTQQ6941-25-23 10:55:00 Test Item Value Reference Range Interpretation Comments MCV (test code = MCV) 81.9 80.0-94.0 [facility]woodJhwlwigTVBEUBZWZP4298-71-58 10:55:00 Test Item Value Reference Range Interpretation Comments MCH (test code = MCH) 26.8 pg 27.0-31.0 [facility]woodSdqlrhhJWLJAUPQAG7177-61-94 10:55:00 Test Item Value Reference Range Interpretation Comments MCHC (test code = MCHC) 32.8 32.0-36.0 [facility]woodVbvxevcETHLSFIYVY7415-43-62 10:55:00 Test Item Value Reference Range Interpretation Comments Basophils (test code = 0.5 See_Comment [Aut omated message] The Basophils) system which ge nerated this result tra nsmitted reference range : <=1.0. The reference r rodney was not used to int erpret this result as normal/abnormal . [facility]woodWpxtwjqVCXXVSCMCJ5363-96-91 10:55:00 Test Item Value Reference Range Interpretation Comments Monocytes # (test code 0.3 See_Comment [Aut omated message] The = Monocytes #) system which generated this result tra nsmitted reference range : <=0.8. The reference r rodney was not used to int erpret this result as normal/abnormal . [facility]woodQrghsxkXNMQFTASOI4225-31-76 10:55:00 Test Item Value Reference Range Interpretation Comments Lymphocytes # (test code = Lymphocytes 1.0 1.0-5.5 #) [facility]woodGltkzmyJUJHCJTZVV3590-01-68 10:55:00 Test Item Value Reference Range Interpretation Comments Segs-Bands # (test code = Segs-Bands #) 5.9 1.5-8.1 [facility]woodYavjgutQIDXVMUPKE3590-12-59 10:55:00 Test Item Value Reference Range Interpretation Comments Eosinophils # (test code 0.1 See_Comment [A utomated message] The = Eosinophils #) system whic h generated this result tra nsmitted reference range : <=0.5. The reference r rodney was not used to int erpret this result as normal/abnormal . [facility]woodHwwrutvJAIPNJNNZU7771-08-33 10:55:00 Test Item Value Reference Range Interpretation Comments Eosinophils (test code = 1.3 See_Comment [A utomated message] The Eosinophils) system which ge nerated this result tra nsmitted reference range : <=4.0. The reference r rodney was not used to int erpret this result as normal/abnormal . [facility]woodPxofqowHGPATQAKJJ3525-02-12 10:55:00 Test Item Value Reference Range Interpretation Comments Segs (test code = Segs) 80.5 45.0-75.0 [facility]woodHmcvwlyXFPUUUUKRI1536-71-07 10:55:00 Test Item Value Reference Range Interpretation Comments Monocytes (test code = Monocytes) 3.9 2.0-12.0 [facility]BLPHJOCMHE3511-[facility]-52 10:55:00 Test Item Value Reference Range Interpretation Comments Lymphocytes (test code = Lymphocytes) 13.8 20.0-40.0 [facility] [employer] KJAJYSJ9210-62-81 14:20:00 Test Item Value Reference Range Interpretation Comments ABO/Rh (test code = ABO/Rh) A POS [facility] [employer] [id number] 14:20:00 Test Item Value Reference Range Interpretation Comments Antibody Scrn (test Negative (06/27/17 9:20 code = Antibody Scrn) AM) [facility] [employer] [id number] 14:20:00 Test Item Value Reference Range Interpretation Comments ABO/Rh (test code = ABO/Rh) A POS [facility] [employer] [id number] 14:20:00 Test Item Value Reference Range Interpretation Comments Antibody Scrn (test Negative (06/27/17 9:20 code = Antibody Scrn) AM) [facility] [employer] [id number] 14:20:00 Test Item Value Reference Range Interpretation Comments ABO/Rh (test code = ABO/Rh) A POS [facility] [employer] [id number] 14:20:00 Test Item Value Reference Range Interpretation Comments Antibody Scrn (test Negative (06/27/17 9:20 code = Antibody Scrn) AM) [facility] [employer] [id number] 14:20:00 Test Item Value Reference Range Interpretation Comments ABO/Rh (test code = ABO/Rh) A POS [facility] [employer] [id number] 14:20:00 Test Item Value Reference Range Interpretation Comments Antibody Scrn (test Negative (06/27/17 9:20 code = Antibody Scrn) AM) [employer] [id number] 23:15:00 Test Item Value Reference Range Interpretation Comments Phosphorus (test code = Phosphorus) 2.9 2.5-4.5 [facility] [employer] [id number] 23:15:00 Test Item Value Reference Range Interpretation Comments Magnesium Lvl (test code = Magnesium 2.5 1.8-2.4 Lvl) [facility] [employer] [id number] 23:15:00 Test Item Value Reference Range Interpretation Comments eGFR (test code = eGFR) 95 [facility] [id number] 23:15:00 Test Item Value Reference Range Interpretation Comments CO2 (test code = CO2) 28 24-32 [facility] [employer] [id number] 23:15:00 Test Item Value Reference Range Interpretation Comments Calcium Lvl (test code = Calcium Lvl) 8.5 8.5-10.5 [facility] [employer] [id number] 23:15:00 Test Item Value Reference Range Interpretation Comments ALT (test code = ALT) 43 See_Comment [Auto mated message] The system which ge nerated this result transmit shanelle reference range : <=65. The reference range was not used to interpr et this result as pamela l/abnormal. [facility]2017-09-07 23:15:00 Test Item Value Reference Range Interpretation Comments AST (test code = AST) 26 See_Comment [Auto mated message] The system which ge nerated this result transmit shanelle reference range : <=37. The reference range was not used to interpr et this result as pamela l/abnormal. [facility]2017-09-07 23:15:00 Test Item Value Reference Range Interpretation Comments Albumin Lvl (test code = Albumin Lvl) 2.1 3.5-5.0 [facility]2017-09-07 23:15:00 Test Item Value Reference Range Interpretation Comments Total Protein (test code = Total 7.2 6.4-8.4 Protein) [facility]2017-09-07 23:15:00 Test Item Value Reference Range Interpretation Comments Bili Total (test code = Bili Total) 0.2 0.2-1.3 [facility]2017-09-07 23:15:00 Test Item Value Reference Range Interpretation Comments Alk Phos (test code = Alk Phos) 237 39-136 [facility]2017-09-07 23:15:00 Test Item Value Reference Range Interpretation Comments Creatinine Lvl (test code = Creatinine 1.00 0.50-1.40 Lvl) [facility]2017-09-07 23:15:00 Test Item Value Reference Range Interpretation Comments Sodium Lvl (test code = Sodium Lvl) 136 135-145 [facility]2017-09-07 23:15:00 Test Item Value Reference Range Interpretation Comments Chloride Lvl (test code = Chloride Lvl) 101 95-109 [facility]2017-09-07 23:15:00 Test Item Value Reference Range Interpretation Comments Potassium Lvl (test code = Potassium 4.1 3.5-5.1 Lvl) [facility]2017-09-07 23:15:00 Test Item Value Reference Range Interpretation Comments BUN (test code = BUN) 9 7-22 [facility]2017-09-07 23:15:00 Test Item Value Reference Range Interpretation Comments Glucose Lvl (test code = Glucose Lvl) 136 70-99 [facility]2017-09-07 23:15:00 Test Item Value Reference Range Interpretation Comments AGAP (test code = AGAP) 11.1 10.0-20.0 [facility]2017-09-07 23:15:00 Test Item Value Reference Range Interpretation Comments B/C Ratio (test code = B/C Ratio) 9 6-25 [facility]2017-09-07 23:15:00 Test Item Value Reference Range Interpretation Comments A/G Ratio (test code = A/G Ratio) 0.4 0.7-1.6 [facility]2017-09-07 23:15:00 Test Item Value Reference Range Interpretation Comments Globulin (test code = Globulin) 5.1 2.7-4.2 [facility]woodVlwkwhiTDAEMHCMEH7055-67-66 23:15:00 Test Item Value Reference Range Interpretation Comments INR (test code = INR) 1.12 0.85-1.17 [facility]woodPsmhjurKQEVMJYXQO9610-29-22 23:15:00 Test Item Value Reference Range Interpretation Comments PT (test code = PT) 14.6 s 12.0-14.7 [facility]woodBbpqvgpFFTYQBQOHN2683-89-42 23:15:00 Test Item Value Reference Range Interpretation Comments Basophils # (test code 0.1 See_Comment [Aut omated message] The = Basophils #) system which generated this result tra nsmitted reference range : <=0.2. The reference r rodney was not used to int erpret this result as normal/abnormal . [facility]2017-09-07 23:15:00 Test Item Value Reference Range Interpretation Comments Phosphorus (test code = Phosphorus) 2.9 2.5-4.5 [facility]2017-09-07 23:15:00 Test Item Value Reference Range Interpretation Comments Magnesium Lvl (test code = Magnesium 2.5 1.8-2.4 Lvl) [facility]2017-09-07 23:15:00 Test Item Value Reference Range Interpretation Comments eGFR (test code = eGFR) 95 [facility]2017-09-07 23:15:00 Test Item Value Reference Range Interpretation Comments CO2 (test code = CO2) 28 24-32 [facility]2017-09-07 23:15:00 Test Item Value Reference Range Interpretation Comments Calcium Lvl (test code = Calcium Lvl) 8.5 8.5-10.5 [facility]2017-09-07 23:15:00 Test Item Value Reference Range Interpretation Comments ALT (test code = ALT) 43 See_Comment [Auto mated message] The system which ge nerated this result transmit shanelle reference range : <=65. The reference range was not used to interpr et this result as pamela l/abnormal. [facility]2017-09-07 23:15:00 Test Item Value Reference Range Interpretation Comments AST (test code = AST) 26 See_Comment [Auto mated message] The system which ge nerated this result transmit shanelle reference range : <=37. The reference range was not used to interpr et this result as pamela l/abnormal. [facility]2017-09-07 23:15:00 Test Item Value Reference Range Interpretation Comments Albumin Lvl (test code = Albumin Lvl) 2.1 3.5-5.0 [place] [id number] 23:15:00 Test Item Value Reference Range Interpretation Comments Total Protein (test code = Total 7.2 6.4-8.4 Protein) [facility]2017-09-07 23:15:00 Test Item Value Reference Range Interpretation Comments Bili Total (test code = Bili Total) 0.2 0.2-1.3 [place] [id number] 23:15:00 Test Item Value Reference Range Interpretation Comments Alk Phos (test code = Alk Phos) 237 39-136 [facility]2017-09-07 23:15:00 Test Item Value Reference Range Interpretation Comments Creatinine Lvl (test code = Creatinine 1.00 0.50-1.40 Lvl) [facility]2017-09-07 23:15:00 Test Item Value Reference Range Interpretation Comments Sodium Lvl (test code = Sodium Lvl) 136 135-145 [place] 537547-09-07 23:15:00 Test Item Value Reference Range Interpretation Comments Chloride Lvl (test code = Chloride Lvl) 101 95-109 [facility]2017-09-07 23:15:00 Test Item Value Reference Range Interpretation Comments Potassium Lvl (test code = Potassium 4.1 3.5-5.1 Lvl) [facility]2017-09-07 23:15:00 Test Item Value Reference Range Interpretation Comments BUN (test code = BUN) 9 7-22 [facility]2017-09-07 23:15:00 Test Item Value Reference Range Interpretation Comments Glucose Lvl (test code = Glucose Lvl) 136 70-99 [facility]2017-09-07 23:15:00 Test Item Value Reference Range Interpretation Comments AGAP (test code = AGAP) 11.1 10.0-20.0 [facility]2017-09-07 23:15:00 Test Item Value Reference Range Interpretation Comments B/C Ratio (test code = B/C Ratio) 9 6-25 [place] [id number] 23:15:00 Test Item Value Reference Range Interpretation Comments A/G Ratio (test code = A/G Ratio) 0.4 0.7-1.6 [facility]2017-09-07 23:15:00 Test Item Value Reference Range Interpretation Comments Globulin (test code = Globulin) 5.1 2.7-4.2 [facility]woodOekbtgcHDHJDLWRDO5384-68-78 23:15:00 Test Item Value Reference Range Interpretation Comments INR (test code = INR) 1.12 0.85-1.17 [id number] 23:15:00 Test Item Value Reference Range Interpretation Comments PT (test code = PT) 14.6 s 12.0-14.7 [place] [id number] 23:15:00 Test Item Value Reference Range Interpretation Comments Basophils # (test code 0.1 See_Comment [Aut omated message] The = Basophils #) system which generated this result tra nsmitted reference range : <=0.2. The reference r rodney was not used to int erpret this result as normal/abnormal . [facility]2017-09-07 23:15:00 Test Item Value Reference Range Interpretation Comments Phosphorus (test code = Phosphorus) 2.9 2.5-4.5 [facility]2017-09-07 23:15:00 Test Item Value Reference Range Interpretation Comments Magnesium Lvl (test code = Magnesium 2.5 1.8-2.4 Lvl) [facility]2017-09-07 23:15:00 Test Item Value Reference Range Interpretation Comments eGFR (test code = eGFR) 95 [facility]2017-09-07 23:15:00 Test Item Value Reference Range Interpretation Comments CO2 (test code = CO2) 28 24-32 [place] [id number] 23:15:00 Test Item Value Reference Range Interpretation Comments Calcium Lvl (test code = Calcium Lvl) 8.5 8.5-10.5 [place] [id number] 23:15:00 Test Item Value Reference Range Interpretation Comments ALT (test code = ALT) 43 See_Comment [Auto mated message] The system which ge nerated this result transmit shnaelle reference range : <=65. The reference range was not used to interpr et this result as pamela l/abnormal. [facility]2017-09-07 23:15:00 Test Item Value Reference Range Interpretation Comments AST (test code = AST) 26 See_Comment [Auto mated message] The system which ge nerated this result transmit shanelle reference range : <=37. The reference range was not used to interpr et this result as pamela l/abnormal. [facility]2017-09-07 23:15:00 Test Item Value Reference Range Interpretation Comments Albumin Lvl (test code = Albumin Lvl) 2.1 3.5-5.0 [facility]2017-09-07 23:15:00 Test Item Value Reference Range Interpretation Comments Total Protein (test code = Total 7.2 6.4-8.4 Protein) [facility]2017-09-07 23:15:00 Test Item Value Reference Range Interpretation Comments Bili Total (test code = Bili Total) 0.2 0.2-1.3 [facility]2017-09-07 23:15:00 Test Item Value Reference Range Interpretation Comments Alk Phos (test code = Alk Phos) 237 39-136 [place] [id number] 23:15:00 Test Item Value Reference Range Interpretation Comments Creatinine Lvl (test code = Creatinine 1.00 0.50-1.40 Lvl) [facility]2017-09-07 23:15:00 Test Item Value Reference Range Interpretation Comments Sodium Lvl (test code = Sodium Lvl) 136 135-145 [facility]2017-09-07 23:15:00 Test Item Value Reference Range Interpretation Comments Chloride Lvl (test code = Chloride Lvl) 101 95-109 [facility]2017-09-07 23:15:00 Test Item Value Reference Range Interpretation Comments Potassium Lvl (test code = Potassium 4.1 3.5-5.1 Lvl) [facility]2017-09-07 23:15:00 Test Item Value Reference Range Interpretation Comments BUN (test code = BUN) 9 7-22 [facility]2017-09-07 23:15:00 Test Item Value Reference Range Interpretation Comments Glucose Lvl (test code = Glucose Lvl) 136 70-99 [facility]2017-09-07 23:15:00 Test Item Value Reference Range Interpretation Comments AGAP (test code = AGAP) 11.1 10.0-20.0 [facility]2017-09-07 23:15:00 Test Item Value Reference Range Interpretation Comments B/C Ratio (test code = B/C Ratio) 9 6-25 [facility]2017-09-07 23:15:00 Test Item Value Reference Range Interpretation Comments A/G Ratio (test code = A/G Ratio) 0.4 0.7-1.6 [place] [id number] 23:15:00 Test Item Value Reference Range Interpretation Comments Globulin (test code = Globulin) 5.1 2.7-4.2 [facility]FWINTK8506[facility]22-48 23:15:00 Test Item Value Reference Range Interpretation Comments INR (test code = INR) 1.12 0.85-1.17 [facility]woodXefcvbfOTQIAJKNQT3413-52-59 23:15:00 Test Item Value Reference Range Interpretation Comments PT (test code = PT) 14.6 s 12.0-14.7 [facility] KingwoodRidywliTFYDJKFOGT6888-79-63 23:15:00 Test Item Value Reference Range Interpretation Comments Basophils # (test code 0.1 See_Comment [Aut omated message] The = Basophils #) system which generated this result tra nsmitted reference range : <=0.2. The reference r rodney was not used to int erpret this result as normal/abnormal . [facility]2017-09-07 23:15:00 Test Item Value Reference Range Interpretation Comments Phosphorus (test code = Phosphorus) 2.9 2.5-4.5 [facility]2017-09-07 23:15:00 Test Item Value Reference Range Interpretation Comments Magnesium Lvl (test code = Magnesium 2.5 1.8-2.4 Lvl) [facility]2017-09-07 23:15:00 Test Item Value Reference Range Interpretation Comments eGFR (test code = eGFR) 95 [facility]2017-09-07 23:15:00 Test Item Value Reference Range Interpretation Comments CO2 (test code = CO2) 28 24-32 [facility]2017-09-07 23:15:00 Test Item Value Reference Range Interpretation Comments Calcium Lvl (test code = Calcium Lvl) 8.5 8.5-10.5 [facility]2017-09-07 23:15:00 Test Item Value Reference Range Interpretation Comments ALT (test code = ALT) 43 See_Comment [Auto mated message] The system which ge nerated this result transmit shanelle reference range : <=65. The reference range was not used to interpr et this result as pamela l/abnormal. [facility]2017-09-07 23:15:00 Test Item Value Reference Range Interpretation Comments AST (test code = AST) 26 See_Comment [Auto mated message] The system which ge nerated this result transmit shanelle reference range : <=37. The reference range was not used to interpr et this result as pamela l/abnormal. [facility]2017-09-07 23:15:00 Test Item Value Reference Range Interpretation Comments Albumin Lvl (test code = Albumin Lvl) 2.1 3.5-5.0 [facility]2017-09-07 23:15:00 Test Item Value Reference Range Interpretation Comments Total Protein (test code = Total 7.2 6.4-8.4 Protein) [facility]2017-09-07 23:15:00 Test Item Value Reference Range Interpretation Comments Bili Total (test code = Bili Total) 0.2 0.2-1.3 [place] 537547-09-07 23:15:00 Test Item Value Reference Range Interpretation Comments Alk Phos (test code = Alk Phos) 237 39-136 [facility]2017-09-07 23:15:00 Test Item Value Reference Range Interpretation Comments Creatinine Lvl (test code = Creatinine 1.00 0.50-1.40 Lvl) [facility]2017-09-07 23:15:00 Test Item Value Reference Range Interpretation Comments Sodium Lvl (test code = Sodium Lvl) 136 135-145 [facility]2017-09-07 23:15:00 Test Item Value Reference Range Interpretation Comments Chloride Lvl (test code = Chloride Lvl) 101 95-109 [facility]2017-09-07 23:15:00 Test Item Value Reference Range Interpretation Comments Potassium Lvl (test code = Potassium 4.1 3.5-5.1 Lvl) [facility]2017-09-07 23:15:00 Test Item Value Reference Range Interpretation Comments BUN (test code = BUN) 9 7-22 [facility]2017-09-07 23:15:00 Test Item Value Reference Range Interpretation Comments Glucose Lvl (test code = Glucose Lvl) 136 70-99 [facility]2017-09-07 23:15:00 Test Item Value Reference Range Interpretation Comments AGAP (test code = AGAP) 11.1 10.0-20.0 [facility]2017-09-07 23:15:00 Test Item Value Reference Range Interpretation Comments B/C Ratio (test code = B/C Ratio) 9 6-25 [facility]2017-09-07 23:15:00 Test Item Value Reference Range Interpretation Comments A/G Ratio (test code = A/G Ratio) 0.4 0.7-1.6 [facility]2017-09-07 23:15:00 Test Item Value Reference Range Interpretation Comments Globulin (test code = Globulin) 5.1 2.7-4.2 [facility]woodKhvnfnxMFTHBMLZAI7453-19-38 23:15:00 Test Item Value Reference Range Interpretation Comments INR (test code = INR) 1.12 0.85-1.17 [facility] KingwoodNucpodyRURYOBJFEZ5350-74-17 23:15:00 Test Item Value Reference Range Interpretation Comments PT (test code = PT) 14.6 s 12.0-14.7 [facility] KingwoodLaqhdwhDBCXJWPDRT0572-35-74 23:15:00 Test Item Value Reference Range Interpretation Comments Basophils # (test code 0.1 See_Comment [Aut omated message] The = Basophils #) system which generated this result tra nsmitted reference range : <=0.2. The reference r rodney was not used to int erpret this result as normal/abnormal . [facility] KingwoodCuwhipgKRBVCSQVOJ3062-47-96 10:39:00 Test Item Value Reference Range Interpretation Comments Basophils # (test code 0.1 See_Comment [Aut omated message] The = Basophils #) system which generated this result tra nsmitted reference range : <=0.2. The reference r rodney was not used to int erpret this result as normal/abnormal . [facility] KingwoodOdgvdjaPXSWLWSCIG9381-34-25 10:39:00 Test Item Value Reference Range Interpretation Comments Basophils # (test code 0.1 See_Comment [Aut omated message] The = Basophils #) system which generated this result tra nsmitted reference range : <=0.2. The reference r rodney was not used to int erpret this result as normal/abnormal . [facility] KingwoodAttuqodLFYHTDDNIC8550-60-25 10:39:00 Test Item Value Reference Range Interpretation Comments Basophils # (test code 0.1 See_Comment [Aut omated message] The = Basophils #) system which generated this result tra nsmitted reference range : <=0.2. The reference r rodney was not used to int erpret this result as normal/abnormal . [facility] KingwoodCpququpUFVWPXNMOH5251-67-46 10:39:00 Test Item Value Reference Range Interpretation Comments Basophils # (test code 0.1 See_Comment [Aut omated message] The = Basophils #) system which generated this result tra nsmitted reference range : <=0.2. The reference r rodney was not used to int erpret this result as normal/abnormal . [facility]2017-09-04 16:20:00 Test Item Value Reference Range Interpretation Comments Magnesium Lvl (test code = Magnesium 2.7 1.8-2.4 Lvl) [facility] KingwoodIkqhxpoYESAVWVWMR0146-73-98 16:20:00 Test Item Value Reference Range Interpretation Comments Basophils # (test code 0.1 See_Comment [Aut omated message] The = Basophils #) system which generated this result tra nsmitted reference range : <=0.2. The reference r rodney was not used to int erpret this result as normal/abnormal . [facility]2017-09-04 16:20:00 Test Item Value Reference Range Interpretation Comments Magnesium Lvl (test code = Magnesium 2.7 1.8-2.4 Lvl) [facility] KingwoodDjjatgfUXDOVUMXQX7767-02-87 16:20:00 Test Item Value Reference Range Interpretation Comments Basophils # (test code 0.1 See_Comment [Aut omated message] The = Basophils #) system which generated this result tra nsmitted reference range : <=0.2. The reference r rodney was not used to int erpret this result as normal/abnormal . [facility]2017-09-04 16:20:00 Test Item Value Reference Range Interpretation Comments Magnesium Lvl (test code = Magnesium 2.7 1.8-2.4 Lvl) [facility] KingwoodQrvoxklXHEGZYYUCH7521-76-67 16:20:00 Test Item Value Reference Range Interpretation Comments Basophils # (test code 0.1 See_Comment [Aut omated message] The = Basophils #) system which generated this result tra nsmitted reference range : <=0.2. The reference r rodney was not used to int erpret this result as normal/abnormal . [facility]2017-09-04 16:20:00 Test Item Value Reference Range Interpretation Comments Magnesium Lvl (test code = Magnesium 2.7 1.8-2.4 Lvl) [facility] KingwoodCrgpchaMJQALBRFND8573-66-56 16:20:00 Test Item Value Reference Range Interpretation Comments Basophils # (test code 0.1 See_Comment [Aut omated message] The = Basophils #) system which generated this result tra nsmitted reference range : <=0.2. The reference r rodney was not used to int erpret this result as normal/abnormal . [facility] OUCCZ5714-69-06 12:48:00 Test Item Value Reference Range Interpretation Comments Procalcitonin Lvl (test 1.56 See_Comment [Au tomated message] code = Procalcitonin Lvl) Th e system which generated this result transmitted ref erence range: <=0.10. The reference range was not used to interpr et this result as normal/abnormal . [facility]2017-09-03 12:48:00 Test Item Value Reference Range Interpretation Comments Procalcitonin Lvl (test 1.56 See_Comment [Au tomated message] code = Procalcitonin Lvl) Th e system which generated this result transmitted ref erence range: <=0.10. The reference range was not used to interpr et this result as normal/abnormal . [facility]2017-09-03 12:48:00 Test Item Value Reference Range Interpretation Comments Procalcitonin Lvl (test 1.56 See_Comment [Au tomated message] code = Procalcitonin Lvl) Th e system which generated this result transmitted ref erence range: <=0.10. The reference range was not used to interpr et this result as normal/abnormal . [facility]2017-09-03 12:48:00 Test Item Value Reference Range Interpretation Comments Procalcitonin Lvl (test 1.56 See_Comment [Au tomated message] code = Procalcitonin Lvl) Th e system which generated this result transmitted ref erence range: <=0.10. The reference range was not used to interpr et this result as normal/abnormal . [facility]RnadpjhPCNCBYBPKZ2447-62-38 04:06:00 Test Item Value Reference Range Interpretation Comments Vanco Tr (test code = Vanco Tr) 16.3 [facility] HospitalMxihvwuBPXYJQEBHJ3907-22-51 04:06:00 Test Item Value Reference Range Interpretation Comments Vanco Tr TND (test code = Vanco Tr TND) 00:00 [facility] HospitalYdnpqkgYADMLMJMGT8593-14-38 04:06:00 Test Item Value Reference Range Interpretation Comments Vanco Tr (test code = Vanco Tr) 16.3 [facility] HospitalCnvqcawVBVYJXXRHT2463-28-51 04:06:00 Test Item Value Reference Range Interpretation Comments Vanco Tr TND (test code = Vanco Tr TND) 00:00 [facility] HospitalEkpzhasTUFBFLIAXJ2172-32-33 04:06:00 Test Item Value Reference Range Interpretation Comments Vanco Tr (test code = Vanco Tr) 16.3 [facility]YrucemyXHKVLSKXBB8894-44-85 04:06:00 Test Item Value Reference Range Interpretation Comments Vanco Tr TND (test code = Vanco Tr TND) 00:00 [place] [id number] 04:06:00 Test Item Value Reference Range Interpretation Comments Vanco Tr (test code = Vanco Tr) 16.3 [place] [id number] 04:06:00 Test Item Value Reference Range Interpretation Comments Vanco Tr TND (test code = Vanco Tr TND) 00:00 [facility]2017-09-02 09:49:00 Test Item Value Reference Range Interpretation Comments Magnesium Lvl (test code = Magnesium 2.6 1.8-2.4 Lvl) [facility] KingwoodYqzryawLWMOLSLFPH3757-44-79 09:49:00 Test Item Value Reference Range Interpretation Comments Plt Morph (test code = Clumped (06/21/17 4:49 Plt Morph) AM) [facility] KingwoodStfqbguZBLKBYKOVJ0828-27-45 09:49:00 Test Item Value Reference Range Interpretation Comments Sed Rate (test code = 97 See_Comment [Auto mated message] The Sed Rate) system which ge nerated this result transmit shanelle reference range : <=15. The reference range was not used to interpr et this result as pamela l/abnormal. [facility]2017-09-02 09:49:00 Test Item Value Reference Range Interpretation Comments Magnesium Lvl (test code = Magnesium 2.6 1.8-2.4 Lvl) [facility] KingwoodKceawqeJHEARBZTOE9021-66-11 09:49:00 Test Item Value Reference Range Interpretation Comments Plt Morph (test code = Clumped (06/21/17 4:49 Plt Morph) AM) [facility] KingwoodRavhdywMLGDOLUTSU4969-16-45 09:49:00 Test Item Value Reference Range Interpretation Comments Sed Rate (test code = 97 See_Comment [Auto mated message] The Sed Rate) system which ge nerated this result transmit shanelle reference range : <=15. The reference range was not used to interpr et this result as pamela l/abnormal. [facility]2017-09-02 09:49:00 Test Item Value Reference Range Interpretation Comments Magnesium Lvl (test code = Magnesium 2.6 1.8-2.4 Lvl) [facility] KingwoodXbrstdrJYMDYDQGIR9746-63-42 09:49:00 Test Item Value Reference Range Interpretation Comments Plt Morph (test code = Clumped (06/21/17 4:49 Plt Morph) AM) [facility] KingwoodOpfahdbQGNDRSOHVY1642-11-15 09:49:00 Test Item Value Reference Range Interpretation Comments Sed Rate (test code = 97 See_Comment [Auto mated message] The Sed Rate) system which ge nerated this result transmit shanelle reference range : <=15. The reference range was not used to interpr et this result as pamela l/abnormal. [facility] [id number] 09:49:00 Test Item Value Reference Range Interpretation Comments Magnesium Lvl (test code = Magnesium 2.6 1.8-2.4 Lvl) [facility] KingwoodBxikcwsFXOWYVULAH1364-05-43 09:49:00 Test Item Value Reference Range Interpretation Comments Plt Morph (test code = Clumped (06/21/17 4:49 Plt Morph) AM) [facility] KingwoodCbiwncqLDLRVCPCEP5408-13-29 09:49:00 Test Item Value Reference Range Interpretation Comments Sed Rate (test code = 97 See_Comment [Auto mated message] The Sed Rate) system which ge nerated this result transmit shanelle reference range : <=15. The reference range was not used to interpr et this result as pamela l/abnormal. [facility] HospitalSi[facility] 21:14:00 Test Item Value Reference Range Interpretation Comments Total CK (test code = Total CK) 159 12-191 [facility]IM[facility]INSA[facility] IZNDKBI4729-90-92 21:14:00 Test Item Value Reference Range Interpretation Comments CK MB (test code = CK MB) 0.8 0.5-3.6 [facility] HospitalIMANINChina Intelligent Transport System GroupFJQNOAP4228-28-54 21:14:00 Test Item Value Reference Range Interpretation Comments Troponin-I (test code no gt See_Comment [Auto mated message] The = Troponin-I) system which g enerated this result transmit shanelle reference range : <=0.40. The reference r rodney was not used to interpr et this result as pamlea l/abnormal. [facility] 21:14:00 Test Item Value Reference Range Interpretation Comments CK MB Index (test 0.5 See_Comment [Automate d message] The code = CK MB Index) system w [facility] generated this result transmit shanelle reference range : <=2.5. The reference range was not used to interpr et this result as pamela l/abnormal. [facility] SystemJufyzpbURSVVPZJVR1248-95-34 21:14:00 Test Item Value Reference Range Interpretation Comments C-REACTIVE PROTEIN (test code = 134.0 C-REACTIVE PROTEIN) [facility] [id number] 21:14:00 Test Item Value Reference Range Interpretation Comments Total CK (test code = Total CK) 159 12-191 [facility] PSCYENW1736-03-49 21:14:00 Test Item Value Reference Range Interpretation Comments CK MB (test code = CK MB) 0.8 0.5-3.6 [facility] [id number] 21:14:00 Test Item Value Reference Range Interpretation Comments Troponin-I (test code no gt See_Comment [Auto mated message] The = Troponin-I) system which g enerated this result transmit shanelle reference range : <=0.40. The reference r rodney was not used to interpr et this result as pamela l/abnormal. [facility] TIMBEYB8167-65-11 21:14:00 Test Item Value Reference Range Interpretation Comments CK MB Index (test 0.5 See_Comment [Automate d message] The code = CK MB Index) system w [facility] generated this result transmit shanelle reference range : <=2.5. The reference range was not used to interpr et this result as pamela l/abnormal. [facility] SystemUnzwslzJJVFSYWDNO3074-83-54 21:14:00 Test Item Value Reference Range Interpretation Comments C-REACTIVE PROTEIN (test code = 134.0 C-REACTIVE PROTEIN) [facility] [id number] 21:14:00 Test Item Value Reference Range Interpretation Comments Total CK (test code = Total CK) 159 12-191 [facility] KJKJLFY7849-16-43 21:14:00 Test Item Value Reference Range Interpretation Comments CK MB (test code = CK MB) 0.8 0.5-3.6 [facility] [id number] 21:14:00 Test Item Value Reference Range Interpretation Comments Troponin-I (test code no gt See_Comment [Auto mated message] The = Troponin-I) system which g enerated this result transmit shanelle reference range : <=0.40. The reference r rodney was not used to interpr et this result as pamela l/abnormal. [facility] [employer]2017-09-01 21:14:00 Test Item Value Reference Range Interpretation Comments CK MB Index (test 0.5 See_Comment [Automate d message] The code = CK MB Index) system w [employer] generated this result transmit shanelle reference range : <=2.5. The reference range was not used to interpr et this result as pamela l/abnormal. [facility] HospitalLpjypcdMOCDUJIZXZ3769-16-04 21:14:00 Test Item Value Reference Range Interpretation Comments C-REACTIVE PROTEIN (test code = 134.0 C-REACTIVE PROTEIN) [facility] 21:14:00 Test Item Value Reference Range Interpretation Comments Total CK (test code = Total CK) 159 12-191 [facility] HospitalFunguy Fungi Incorporated [id number] 21:14:00 Test Item Value Reference Range Interpretation Comments CK MB (test code = CK MB) 0.8 0.5-3.6 [facility] 21:14:00 Test Item Value Reference Range Interpretation Comments Troponin-I (test code no gt See_Comment [Auto mated message] The = Troponin-I) system which g enerated this result transmit shanelle reference range : <=0.40. The reference r rodney was not used to interpr et this result as pamela l/abnormal. [facility] 21:14:00 Test Item Value Reference Range Interpretation Comments CK MB Index (test 0.5 See_Comment [Automate d message] The code = CK MB Index) system w [employer] generated this result transmit shanelle reference range : <=2.5. The reference range was not used to interpr et this result as pamela l/abnormal. [facility] HttsczdFXBUYNYDHE8729-57-04 21:14:00 Test Item Value Reference Range Interpretation Comments C-REACTIVE PROTEIN (test code = 134.0 C-REACTIVE PROTEIN) [facility] 16:51:00 Test Item Value Reference Range Interpretation Comments CK MB (test code = CK MB) 0.9 0.5-3.6 [facility] [employer]2017-09-01 16:51:00 Test Item Value Reference Range Interpretation Comments Troponin-I (test code no gt See_Comment [Auto mated message] The = Troponin-I) system which g enerated this result transmit shanelle reference range : <=0.40. The reference r rodney was not used to interpr et this result as pamela l/abnormal. [facility] [employer]2017-09-01 16:51:00 Test Item Value Reference Range Interpretation Comments Total CK (test code = Total CK) 95 -191 [facility] 16:51:00 Test Item Value Reference Range Interpretation Comments CK MB (test code = CK MB) 0.9 0.5-3.6 [facility] [employer]2017-09-01 16:51:00 Test Item Value Reference Range Interpretation Comments Troponin-I (test code no gt See_Comment [Auto mated message] The = Troponin-I) system which g enerated this result transmit shanelle reference range : <=0.40. The reference r rodney was not used to interpr et this result as pamela l/abnormal. [facility] [employer]2017-09-01 16:51:00 Test Item Value Reference Range Interpretation Comments Total CK (test code = Total CK) 95 191 [facility] Test Item Value Reference Range Interpretation Comments CK MB (test code = CK MB) 0.9 0.5-3.6 [facility] [employer]2017-09-01 16:51:00 Test Item Value Reference Range Interpretation Comments Troponin-I (test code no gt See_Comment [Auto mated message] The = Troponin-I) system which g enerated this result transmit shanelle reference range : <=0.40. The reference r rodney was not used to interpr et this result as pamela l/abnormal. [facility] [employer]2017-09-01 16:51:00 Test Item Value Reference Range Interpretation Comments Total CK (test code = Total CK) 95 12-191 [facility] 16:51:00 Test Item Value Reference Range Interpretation Comments CK MB (test code = CK MB) 0.9 0.5-3.6 [facility] [employer]2017-09-01 16:51:00 Test Item Value Reference Range Interpretation Comments Troponin-I (test code no gt See_Comment [Auto mated message] The = Troponin-I) system which g enerated this result transmit shanelle reference range : <=0.40. The reference r rodney was not used to interpr et this result as pamela l/abnormal. [facility] [employer]2017-09-01 16:51:00 Test Item Value Reference Range Interpretation Comments Total CK (test code = Total CK) 95 12-191 [facility] 13:33:00 Test Item Value Reference Range Interpretation Comments CK MB Index (test 0.7 See_Comment [Automate d message] The code = CK MB Index) system w [facility] generated this result transmit shanelle reference range : <=2.5. The reference range was not used to interpr et this result as pamela l/abnormal. [facility] [employer]2017-09-01 13:33:00 Test Item Value Reference Range Interpretation Comments CK MB (test code = CK MB) 0.7 0.5-3.6 [facility] [employer]2017-09-01 13:33:00 Test Item Value Reference Range Interpretation Comments Troponin-I (test code no gt See_Comment [Auto mated message] The = Troponin-I) system which g enerated this result transmit shanelle reference range : <=0.40. The reference r rodney was not used to interpr et this result as pamela l/abnormal. [facility] [employer]2017-09-01 13:33:00 Test Item Value Reference Range Interpretation Comments Total CK (test code = Total CK) 105 12-191 [facility] [employer]2017-09-01 13:33:00 Test Item Value Reference Range Interpretation Comments Bili Total (test code = Bili Total) 1.3 0.2-1.3 [facility] [employer]2017-09-01 13:33:00 Test Item Value Reference Range Interpretation Comments Alk Phos (test code = Alk Phos) 167 39-136 [facility] [employer]2017-09-01 13:33:00 Test Item Value Reference Range Interpretation Comments A/G Ratio (test code = A/G Ratio) 0.7 0.7-1.6 [employer]2017-09-01 13:33:00 Test Item Value Reference Range Interpretation Comments ALT (test code = ALT) 55 See_Comment [Auto mated message] The system which ge nerated this result transmit shanelle reference range : <=65. The reference range was not used to interpr et this result as pamela l/abnormal. [facility] [employer]2017-09-01 13:33:00 Test Item Value Reference Range Interpretation Comments AST (test code = AST) 40 See_Comment [Auto mated message] The system which ge nerated this result transmit shanelle reference range : <=37. The reference range was not used to interpr et this result as pamela l/abnormal. [employer]2017-09-01 13:33:00 Test Item Value Reference Range Interpretation Comments Globulin (test code = Globulin) 4.9 2.7-4.2 [facility] [employer]2017-09-01 13:33:00 Test Item Value Reference Range Interpretation Comments Albumin Lvl (test code = Albumin Lvl) 3.2 3.5-5.0 [facility] [employer]2017-09-01 13:33:00 Test Item Value Reference Range Interpretation Comments Total Protein (test code = Total 8.1 6.4-8.4 Protein) [facility] [employer]2017-09-01 13:33:00 Test Item Value Reference Range Interpretation Comments B/C Ratio (test code = B/C Ratio) 17 6-25 [facility] [employer]2017-09-01 13:33:00 Test Item Value Reference Range Interpretation Comments CK MB Index (test 0.7 See_Comment [Automate d message] The code = CK MB Index) system w [facility] generated this result transmit shanelle reference range : <=2.5. The reference range was not used to interpr et this result as pamela l/abnormal. [facility] [employer]2017-09-01 13:33:00 Test Item Value Reference Range Interpretation Comments CK MB (test code = CK MB) 0.7 0.5-3.6 [facility] [employer]2017-09-01 13:33:00 Test Item Value Reference Range Interpretation Comments Troponin-I (test code no gt See_Comment [Auto mated message] The = Troponin-I) system which g enerated this result transmit shanelle reference range : <=0.40. The reference r rodney was not used to interpr et this result as pamela l/abnormal. [facility] [id number] 13:33:00 Test Item Value Reference Range Interpretation Comments Total CK (test code = Total CK) 105 12-191 [facility] [id number] 13:33:00 Test Item Value Reference Range Interpretation Comments Bili Total (test code = Bili Total) 1.3 0.2-1.3 [facility] [id number] 13:33:00 Test Item Value Reference Range Interpretation Comments Alk Phos (test code = Alk Phos) 167 39-136 [facility] [id number] 13:33:00 Test Item Value Reference Range Interpretation Comments A/G Ratio (test code = A/G Ratio) 0.7 0.7-1.6 [facility] [id number] 13:33:00 Test Item Value Reference Range Interpretation Comments ALT (test code = ALT) 55 See_Comment [Auto mated message] The system which ge nerated this result transmit shanelle reference range : <=65. The reference range was not used to interpr et this result as pamela l/abnormal. [facility] [id number] 13:33:00 Test Item Value Reference Range Interpretation Comments AST (test code = AST) 40 See_Comment [Auto mated message] The system which ge nerated this result transmit shanelle reference range : <=37. The reference range was not used to interpr et this result as pamela l/abnormal. [facility] [id number] 13:33:00 Test Item Value Reference Range Interpretation Comments Globulin (test code = Globulin) 4.9 2.7-4.2 [facility]apitureCRITICAL ACCESS [id number] 13:33:00 Test Item Value Reference Range Interpretation Comments Albumin Lvl (test code = Albumin Lvl) 3.2 3.5-5.0 [facility]2017-09-01 13:33:00 Test Item Value Reference Range Interpretation Comments Total Protein (test code = Total 8.1 6.4-8.4 Protein) [facility] [id number] 13:33:00 Test Item Value Reference Range Interpretation Comments B/C Ratio (test code = B/C Ratio) 17 6-25 [facility] [employer]2017-09-01 13:33:00 Test Item Value Reference Range Interpretation Comments CK MB Index (test 0.7 See_Comment [Automate d message] The code = CK MB Index) system w [facility] generated this result transmit shanelle reference range : <=2.5. The reference range was not used to interpr et this result as pamela l/abnormal. [facility] [employer]2017-09-01 13:33:00 Test Item Value Reference Range Interpretation Comments CK MB (test code = CK MB) 0.7 0.5-3.6 [facility] [employer]2017-09-01 13:33:00 Test Item Value Reference Range Interpretation Comments Troponin-I (test code no gt See_Comment [Auto mated message] The = Troponin-I) system which g enerated this result transmit shanelle reference range : <=0.40. The reference r rodney was not used to interpr et this result as pamela l/abnormal. [employer]2017-09-01 13:33:00 Test Item Value Reference Range Interpretation Comments Total CK (test code = Total CK) 105 12-191 [employer]2017-09-01 13:33:00 Test Item Value Reference Range Interpretation Comments Bili Total (test code = Bili Total) 1.3 0.2-1.3 [employer]2017-09-01 13:33:00 Test Item Value Reference Range Interpretation Comments Alk Phos (test code = Alk Phos) 167 39-136 [employer]2017-09-01 13:33:00 Test Item Value Reference Range Interpretation Comments A/G Ratio (test code = A/G Ratio) 0.7 0.7-1.6 [employer]2017-09-01 13:33:00 Test Item Value Reference Range Interpretation Comments ALT (test code = ALT) 55 See_Comment [Auto mated message] The system which ge nerated this result transmit shanelle reference range : <=65. The reference range was not used to interpr et this result as pamela l/abnormal. [employer]2017-09-01 13:33:00 Test Item Value Reference Range Interpretation Comments AST (test code = AST) 40 See_Comment [Auto mated message] The system which ge nerated this result transmit shanelle reference range : <=37. The reference range was not used to interpr et this result as pamela l/abnormal. [facility] [employer]2017-09-01 13:33:00 Test Item Value Reference Range Interpretation Comments Globulin (test code = Globulin) 4.9 2.7-4.2 [facility] [employer]2017-09-01 13:33:00 Test Item Value Reference Range Interpretation Comments Albumin Lvl (test code = Albumin Lvl) 3.2 3.5-5.0 [facility] [employer]2017-09-01 13:33:00 Test Item Value Reference Range Interpretation Comments Total Protein (test code = Total 8.1 6.4-8.4 Protein) [facility] [employer]2017-09-01 13:33:00 Test Item Value Reference Range Interpretation Comments B/C Ratio (test code = B/C Ratio) 17 6-25 [facility] [employer]2017-09-01 13:33:00 Test Item Value Reference Range Interpretation Comments CK MB Index (test 0.7 See_Comment [Automate d message] The code = CK MB Index) system w [facility] generated this result transmit shanelle reference range : <=2.5. The reference range was not used to interpr et this result as pamela l/abnormal. [facility] [employer]2017-09-01 13:33:00 Test Item Value Reference Range Interpretation Comments CK MB (test code = CK MB) 0.7 0.5-3.6 [facility] 13:33:00 Test Item Value Reference Range Interpretation Comments Troponin-I (test code no gt See_Comment [Auto mated message] The = Troponin-I) system which g enerated this result transmit shanelle reference range : <=0.40. The reference r rodney was not used to interpr et this result as pamela l/abnormal. [facility] [employer]2017-09-01 13:33:00 Test Item Value Reference Range Interpretation Comments Total CK (test code = Total CK) 105 12-191 [facility] [employer]2017-09-01 13:33:00 Test Item Value Reference Range Interpretation Comments Bili Total (test code = Bili Total) 1.3 0.2-1.3 [facility]2017-09-01 13:33:00 Test Item Value Reference Range Interpretation Comments Alk Phos (test code = Alk Phos) 167 39-136 [facility]2017-09-01 13:33:00 Test Item Value Reference Range Interpretation Comments A/G Ratio (test code = A/G Ratio) 0.7 0.7-1.6 [facility]2017-09-01 13:33:00 Test Item Value Reference Range Interpretation Comments ALT (test code = ALT) 55 See_Comment [Auto mated message] The system which ge nerated this result transmit shanelle reference range : <=65. The reference range was not used to interpr et this result as pamela l/abnormal. [facility]2017-09-01 13:33:00 Test Item Value Reference Range Interpretation Comments AST (test code = AST) 40 See_Comment [Auto mated message] The system which ge nerated this result transmit shanelle reference range : <=37. The reference range was not used to interpr et this result as pamela l/abnormal. [facility]2017-09-01 13:33:00 Test Item Value Reference Range Interpretation Comments Globulin (test code = Globulin) 4.9 2.7-4.2 [facility]2017-09-01 13:33:00 Test Item Value Reference Range Interpretation Comments Albumin Lvl (test code = Albumin Lvl) 3.2 3.5-5.0 [facility]2017-09-01 13:33:00 Test Item Value Reference Range Interpretation Comments Total Protein (test code = Total 8.1 6.4-8.4 Protein) [facility]2017-09-01 13:33:00 Test Item Value Reference Range Interpretation Comments B/C Ratio (test code = B/C Ratio) 17 6-25 [facility]2017-09-01 04:49:00 Test Item Value Reference Range Interpretation Comments UA Protein (test code Negative (06/19/17 11:49 = UA Protein) PM) [facility] [id number] 04:49:00 Test Item Value Reference Range Interpretation Comments UA pH (test code = UA pH) 6.0 1 5.0-8.0 [facility] [id number] 04:49:00 Test Item Value Reference Range Interpretation Comments UA Turbidity (test code = Clear (06/19/17 11:49 UA Turbidity) PM) [facility] [id number] 04:49:00 Test Item Value Reference Range Interpretation Comments UA Spec Grav (test *NA*(06/19/17 11:49 PM) code = UA Spec Grav) [facility] [id number] 04:49:00 Test Item Value Reference Range Interpretation Comments UA Color (test code = Yellow *NA*(06/19/17 UA Color) 11:49 PM) [facility] [id number] 04:49:00 Test Item Value Reference Range Interpretation Comments UA Bacteria (test code = None Seen (06/19/17 UA Bacteria) 11:49 PM) [facility] [id number] 04:49:00 Test Item Value Reference Range Interpretation Comments UA RBC (test None Seen See_Comment [Automated [employer]] code = UA RBC) (06/19/17 11:49 The system which PM) generated this result transmitted ref erence range: <=2. The reference range was not used to int erpret this result as normal/abnormal . [facility] [id number] 04:49:00 Test Item Value Reference Range Interpretation Comments UA Nitrite (test code Negative (06/19/17 11:49 = UA Nitrite) PM) [facility] [id number] 04:49:00 Test Item Value Reference Range Interpretation Comments UA WBC (test code = UA WBC) 0-2 /HPF [facility] [id number] 04:49:00 Test Item Value Reference Range Interpretation Comments UA Sq Epi (test code = None Seen (06/19/17 UA Sq Epi) 11:49 PM) [facility] [id number] 04:49:00 Test Item Value Reference Range Interpretation Comments UA Leuk Est (test Negative (06/19/17 11:49 code = UA Leuk Est) PM) [facility] [id number] 04:49:00 Test Item Value Reference Range Interpretation Comments UA Blood (test code = Negative (06/19/17 11:49 UA Blood) PM) [facility] [id number] 04:49:00 Test Item Value Reference Range Interpretation Comments UA Urobilinogen (test code = UA 0.2 0.1-1.0 Urobilinogen) [facility] [id number] 04:49:00 Test Item Value Reference Range Interpretation Comments UA Ketones (test code Negative *NA*(06/19/17 = UA Ketones) 11:49 PM) [facility] [id number] 04:49:00 Test Item Value Reference Range Interpretation Comments UA Bili (test code = Negative *NA*(06/19/17 UA Bili) 11:49 PM) [facility] [id number] 04:49:00 Test Item Value Reference Range Interpretation Comments UA Glucose (test code Negative (06/19/17 11:49 = UA Glucose) PM) [facility] [id number] 04:49:00 Test Item Value Reference Range Interpretation Comments UA Protein (test code Negative (06/19/17 11:49 = UA Protein) PM) [facility] [id number] 04:49:00 Test Item Value Reference Range Interpretation Comments UA pH (test code = UA pH) 6.0 1 5.0-8.0 [facility] [id number] 04:49:00 Test Item Value Reference Range Interpretation Comments UA Turbidity (test code = Clear (06/19/17 11:49 UA Turbidity) PM) [facility] [id number] 04:49:00 Test Item Value Reference Range Interpretation Comments UA Spec Grav (test *NA*(06/19/17 11:49 PM) code = UA Spec Grav) [facility] [id number] 04:49:00 Test Item Value Reference Range Interpretation Comments UA Color (test code = Yellow *NA*(06/19/17 UA Color) 11:49 PM) [facility] [id number] 04:49:00 Test Item Value Reference Range Interpretation Comments UA Bacteria (test code = None Seen (06/19/17 UA Bacteria) 11:49 PM) [facility] [id number] 04:49:00 Test Item Value Reference Range Interpretation Comments UA RBC (test None Seen See_Comment [Automated mes freedom] code = UA RBC) (06/19/17 11:49 The system which PM) generated this result transmitted ref erence range: <=2. The reference range was not used to int erpret this result as normal/abnormal . [facility] [id number] 04:49:00 Test Item Value Reference Range Interpretation Comments UA Nitrite (test code Negative (06/19/17 11:49 = UA Nitrite) PM) [facility] [id number] 04:49:00 Test Item Value Reference Range Interpretation Comments UA WBC (test code = UA WBC) 0-2 /HPF [facility] [id number] 04:49:00 Test Item Value Reference Range Interpretation Comments UA Sq Epi (test code = None Seen (06/19/17 UA Sq Epi) 11:49 PM) [facility] [id number] 04:49:00 Test Item Value Reference Range Interpretation Comments UA Leuk Est (test Negative (06/19/17 11:49 code = UA Leuk Est) PM) [facility] [id number] 04:49:00 Test Item Value Reference Range Interpretation Comments UA Blood (test code = Negative (06/19/17 11:49 UA Blood) PM) [facility] [id number] 04:49:00 Test Item Value Reference Range Interpretation Comments UA Urobilinogen (test code = UA 0.2 0.1-1.0 Urobilinogen) [facility] [id number] 04:49:00 Test Item Value Reference Range Interpretation Comments UA Ketones (test code Negative *NA*(06/19/17 = UA Ketones) 11:49 PM) [facility] [id number] 04:49:00 Test Item Value Reference Range Interpretation Comments UA Bili (test code = Negative *NA*(06/19/17 UA Bili) 11:49 PM) [facility] [id number] 04:49:00 Test Item Value Reference Range Interpretation Comments UA Glucose (test code Negative (06/19/17 11:49 = UA Glucose) PM) [facility] [id number] 04:49:00 Test Item Value Reference Range Interpretation Comments UA Protein (test code Negative (06/19/17 11:49 = UA Protein) PM) [facility] [id number] 04:49:00 Test Item Value Reference Range Interpretation Comments UA pH (test code = UA pH) 6.0 1 5.0-8.0 [facility] [id number] 04:49:00 Test Item Value Reference Range Interpretation Comments UA Turbidity (test code = Clear (06/19/17 11:49 UA Turbidity) PM) [facility] [id number] 04:49:00 Test Item Value Reference Range Interpretation Comments UA Spec Grav (test *NA*(06/19/17 11:49 PM) code = UA Spec Grav) [facility] [id number] 04:49:00 Test Item Value Reference Range Interpretation Comments UA Color (test code = Yellow *NA*(06/19/17 UA Color) 11:49 PM) [facility] [id number] 04:49:00 Test Item Value Reference Range Interpretation Comments UA Bacteria (test code = None Seen (06/19/17 UA Bacteria) 11:49 PM) [facility] [id number] 04:49:00 Test Item Value Reference Range Interpretation Comments UA RBC (test None Seen See_Comment [Automated [employer] freedom] code = UA RBC) (06/19/17 11:49 The system which PM) generated this result transmitted ref erence range: <=2. The reference range was not used to int erpret this result as normal/abnormal . [facility] [id number] 04:49:00 Test Item Value Reference Range Interpretation Comments UA Nitrite (test code Negative (06/19/17 11:49 = UA Nitrite) PM) [facility] [id number] 04:49:00 Test Item Value Reference Range Interpretation Comments UA WBC (test code = UA WBC) 0-2 /HPF [facility] [id number] 04:49:00 Test Item Value Reference Range Interpretation Comments UA Sq Epi (test code = None Seen (06/19/17 UA Sq Epi) 11:49 PM) [facility] [id number] 04:49:00 Test Item Value Reference Range Interpretation Comments UA Leuk Est (test Negative (06/19/17 11:49 code = UA Leuk Est) PM) [facility] [id number] 04:49:00 Test Item Value Reference Range Interpretation Comments UA Blood (test code = Negative (06/19/17 11:49 UA Blood) PM) [facility] [id number] 04:49:00 Test Item Value Reference Range Interpretation Comments UA Urobilinogen (test code = UA 0.2 0.1-1.0 Urobilinogen) [facility] [id number] 04:49:00 Test Item Value Reference Range Interpretation Comments UA Ketones (test code Negative *NA*(06/19/17 = UA Ketones) 11:49 PM) [facility] [id number] 04:49:00 Test Item Value Reference Range Interpretation Comments UA Bili (test code = Negative *NA*(06/19/17 UA Bili) 11:49 PM) [facility] [id number] 04:49:00 Test Item Value Reference Range Interpretation Comments UA Glucose (test code Negative (06/19/17 11:49 = UA Glucose) PM) [facility] [id number] 04:49:00 Test Item Value Reference Range Interpretation Comments UA Protein (test code Negative (06/19/17 11:49 = UA Protein) PM) [facility] [id number] 04:49:00 Test Item Value Reference Range Interpretation Comments UA pH (test code = UA pH) 6.0 1 5.0-8.0 [facility] [id number] 04:49:00 Test Item Value Reference Range Interpretation Comments UA Turbidity (test code = Clear (06/19/17 11:49 UA Turbidity) PM) [facility] [id number] 04:49:00 Test Item Value Reference Range Interpretation Comments UA Spec Grav (test *NA*(06/19/17 11:49 PM) code = UA Spec Grav) [facility] [id number] 04:49:00 Test Item Value Reference Range Interpretation Comments UA Color (test code = Yellow *NA*(06/19/17 UA Color) 11:49 PM) [facility] [id number] 04:49:00 Test Item Value Reference Range Interpretation Comments UA Bacteria (test code = None Seen (06/19/17 UA Bacteria) 11:49 PM) [facility] [id number] 04:49:00 Test Item Value Reference Range Interpretation Comments UA RBC (test None Seen See_Comment [Automated mes freedom] code = UA RBC) (06/19/17 11:49 The system which PM) generated this result transmitted ref erence range: <=2. The reference range was not used to int erpret this result as normal/abnormal . [facility] [id number] 04:49:00 Test Item Value Reference Range Interpretation Comments UA Nitrite (test code Negative (06/19/17 11:49 = UA Nitrite) PM) [facility] [id number] 04:49:00 Test Item Value Reference Range Interpretation Comments UA WBC (test code = UA WBC) 0-2 /HPF [facility] [id number] 04:49:00 Test Item Value Reference Range Interpretation Comments UA Sq Epi (test code = None Seen (06/19/17 UA Sq Epi) 11:49 PM) [facility] [id number] 04:49:00 Test Item Value Reference Range Interpretation Comments UA Leuk Est (test Negative (06/19/17 11:49 code = UA Leuk Est) PM) [facility] [id number] 04:49:00 Test Item Value Reference Range Interpretation Comments UA Blood (test code = Negative (06/19/17 11:49 UA Blood) PM) [facility] AND [id number] 04:49:00 Test Item Value Reference Range Interpretation Comments UA Urobilinogen (test code = UA 0.2 0.1-1.0 Urobilinogen) [facility] AND [id number] 04:49:00 Test Item Value Reference Range Interpretation Comments UA Ketones (test code Negative *NA*(06/19/17 = UA Ketones) 11:49 PM) [facility] AND [id number] 04:49:00 Test Item Value Reference Range Interpretation Comments UA Bili (test code = Negative *NA*(06/19/17 UA Bili) 11:49 PM) [facility] AND [id number] 04:49:00 Test Item Value Reference Range Interpretation Comments UA Glucose (test code Negative (06/19/17 11:49 = UA Glucose) PM) [id number] 04:31:00 Test Item Value Reference Range Interpretation Comments Hgb (test code = Hgb) 12.2 14.0-18.0 [id number] 04:31:00 Test Item Value Reference Range Interpretation Comments RBC X 10x6 (test code = RBC X 10x6) 4.67 4.70-6.10 [facility]woodZiooglgKTOCTCRZXF6743-66-14 04:31:00 Test Item Value Reference Range Interpretation Comments WBC X 10x3 (test code = WBC X 10x3) 15.5 3.7-10.4 [facility]2017-09-01 04:31:00 Test Item Value Reference Range Interpretation Comments Streptococcus spp. (test Not Detected code = Streptococcus (06/19/17 11:31 PM) spp.) [facility]2017-09-01 04:31:00 Test Item Value Reference Range Interpretation Comments Shirley Vancomycin Not Detected (06/19/17 Resistance (test code = 11:31 PM) Shirley Vancomycin Resistance) [facility]2017-09-01 04:31:00 Test Item Value Reference Range Interpretation Comments Listeria spp. (test Not Detected (06/19/17 code = Listeria spp.) 11:31 PM) [facility]2017-09-01 04:31:00 Test Item Value Reference Range Interpretation Comments mecA Methicillin Not Detected (06/19/17 Resistance (test code = 11:31 PM) mecA Methicillin Resistance) [facility]2017-09-01 04:31:00 Test Item Value Reference Range Interpretation Comments vanB Vancomycin Not Detected (06/19/17 Resistance (test code = 11:31 PM) vanB Vancomycin Resistance) [facility]2017-09-01 04:31:00 Test Item Value Reference Range Interpretation Comments E. faecium (test code Not Detected (06/19/17 = E. faecium) 11:31 PM) [facility]2017-09-01 04:31:00 Test Item Value Reference Range Interpretation Comments Staphylococcus spp. (test Detected code = Staphylococcus *ABN*(06/19/17 11:31 spp.) PM) [facility]2017-09-01 04:31:00 Test Item Value Reference Range Interpretation Comments S. lugdunensis (test Not Detected (06/19/17 code = S. lugdunensis) 11:31 PM) [facility]2017-09-01 04:31:00 Test Item Value Reference Range Interpretation Comments S. epidermidis (test Not Detected (06/19/17 code = S. epidermidis) 11:31 PM) [facility]2017-09-01 04:31:00 Test Item Value Reference Range Interpretation Comments S. aureus (test code = Detected *ABN*(06/19/17 S. aureus) 11:31 PM) [facility]2017-09-01 04:31:00 Test Item Value Reference Range Interpretation Comments S. pneumoniae (test code Not Detected (06/19/17 = S. pneumoniae) 11:31 PM) [facility]2017-09-01 04:31:00 Test Item Value Reference Range Interpretation Comments E. faecalis (test code Not Detected (06/19/17 = E. faecalis) 11:31 PM) [facility]2017-09-01 04:31:00 Test Item Value Reference Range Interpretation Comments S. agalactiae (test code Not Detected (06/19/17 = S. agalactiae) 11:31 PM) [facility]2017-09-01 04:31:00 Test Item Value Reference Range Interpretation Comments S. anginosus grp (test Not Detected (06/19/17 code = S. anginosus 11:31 PM) grp) [facility]2017-09-01 04:31:00 Test Item Value Reference Range Interpretation Comments S. pyogenes (test code Not Detected (06/19/17 = S. pyogenes) 11:31 PM) [facility]2017-09-01 04:31:00 Test Item Value Reference Range Interpretation Comments B/C Ratio (test code = B/C Ratio) 17 6-25 [facility] [id number] 04:31:00 Test Item Value Reference Range Interpretation Comments Globulin (test code = Globulin) 5.3 2.7-4.2 [facility]2017-09-01 04:31:00 Test Item Value Reference Range Interpretation Comments A/G Ratio (test code = A/G Ratio) 0.6 0.7-1.6 [facility]2017-09-01 04:31:00 Test Item Value Reference Range Interpretation Comments AGAP (test code = AGAP) 9.5 10.0-20.0 [facility]2017-09-01 04:31:00 Test Item Value Reference Range Interpretation Comments ASPARTATE TRANSAMINASE 12 See_Comment [Aut omated message] (test code = ASPARTATE The s ystem which TRANSAMINASE) generated this result transmitted ref erence range: <=37. Th e reference range was not used to interpr et this result as normal/abnormal . [facility]2017-09-01 04:31:00 Test Item Value Reference Range Interpretation Comments eGFR (test code = eGFR) 86 [facility]2017-09-01 04:31:00 Test Item Value Reference Range Interpretation Comments Bili Total (test code = Bili Total) 0.4 0.2-1.3 [facility]2017-09-01 04:31:00 Test Item Value Reference Range Interpretation Comments Total Protein (test code = Total 8.5 6.4-8.4 Protein) [facility]2017-09-01 04:31:00 Test Item Value Reference Range Interpretation Comments Chloride Lvl (test code = Chloride Lvl) 94 95-109 [facility]2017-09-01 04:31:00 Test Item Value Reference Range Interpretation Comments CO2 (test code = CO2) 30 24-32 [facility]2017-09-01 04:31:00 Test Item Value Reference Range Interpretation Comments Calcium Lvl (test code = Calcium Lvl) 8.8 8.5-10.5 [facility]2017-09-01 04:31:00 Test Item Value Reference Range Interpretation Comments ALANINE AMINOTRANSFERASE 48 See_Comment [A utomated message] (test code = ALANINE The sys tem which AMINOTRANSFERASE) generated this result transmitted ref erence range: <=65. Th e reference range was not used to int erpret this result as normal/abnormal . [facility]2017-09-01 04:31:00 Test Item Value Reference Range Interpretation Comments Albumin Lvl (test code = Albumin Lvl) 3.2 3.5-5.0 [facility]2017-09-01 04:31:00 Test Item Value Reference Range Interpretation Comments Alk Phos (test code = Alk Phos) 150 39-136 [facility]2017-09-01 04:31:00 Test Item Value Reference Range Interpretation Comments Potassium Lvl (test code = Potassium 4.5 3.5-5.1 Lvl) [facility]2017-09-01 04:31:00 Test Item Value Reference Range Interpretation Comments BUN (test code = BUN) 19 7-22 [facility]2017-09-01 04:31:00 Test Item Value Reference Range Interpretation Comments Glucose Lvl (test code = Glucose Lvl) 260 70-99 [facility]2017-09-01 04:31:00 Test Item Value Reference Range Interpretation Comments Creatinine Lvl (test code = Creatinine 1.09 0.50-1.40 Lvl) [facility]2017-09-01 04:31:00 Test Item Value Reference Range Interpretation Comments Sodium Lvl (test code = Sodium Lvl) 129 135-145 [facility]woodWjpftlhPESRXVQQOY4169-12-78 04:31:00 Test Item Value Reference Range Interpretation Comments RBC Morph (test code = Normal (06/19/17 11:31 RBC Morph) PM) [facility]woodJoahvusCUVCORYSRV0686-52-29 04:31:00 Test Item Value Reference Range Interpretation Comments Plt Morph (test code = Normal (06/19/17 11:31 Plt Morph) PM) [facility]woodFcbpsnaAMNMITZXCW1051-35-50 04:31:00 Test Item Value Reference Range Interpretation Comments Segs (test code = Segs) 74.0 45.0-75.0 [facility]woodUxvsmhwRWFMDJWAFB6516-04-66 04:31:00 Test Item Value Reference Range Interpretation Comments Segs-Bands # (test code = Segs-Bands #) 12.6 1.5-8.1 [facility]woodErujuilYLFHWDXRDM2441-54-04 04:31:00 Test Item Value Reference Range Interpretation Comments Monocytes (test code = Monocytes) 5.0 2.0-12.0 [facility]woodTergkaeQEBALSGPQW2551-98-99 04:31:00 Test Item Value Reference Range Interpretation Comments Lymphocytes (test code = Lymphocytes) 13.0 20.0-40.0 [facility] KingwoodL[id number] 04:31:00 Test Item Value Reference Range Interpretation Comments Bands (test code = 7.0 See_Comment [Automat ed message] The Bands) system which ge nerated this result transmit shanelle reference range : <=11.0. The reference r rodney was not used to interpr et this result as pamela l/abnormal. [facility]wo[id number] 04:31:00 Test Item Value Reference Range Interpretation Comments Metamyelocytes (test code 1.0 See_Comment [ Automated message] = Metamyelocytes) The system which generated this result transmitted ref erence range: <=1.0. T he reference range was not used to int erpret this result as normal/abnormal . [facility]woodNfojktdYNUQVXGANI0575-73-03 04:31:00 Test Item Value Reference Range Interpretation Comments Monocytes # (test code 0.8 See_Comment [Aut omated message] The = Monocytes #) system which generated this result tra nsmitted reference range : <=0.8. The reference r rodney was not used to int erpret this result as normal/abnormal . [facility]woodVeaatklYQZJHRQSKE3848-16-67 04:31:00 Test Item Value Reference Range Interpretation Comments Lymphocytes # (test code = Lymphocytes 2.0 1.0-5.5 #) [facility]woodRkdrrfzLPDDTXLMLZ3126-30-58 04:31:00 Test Item Value Reference Range Interpretation Comments Hct (test code = Hct) 37.7 42.0-54.0 [facility]woodCtcuwvmNWGPYCJAMM8007-22-94 04:31:00 Test Item Value Reference Range Interpretation Comments MCV (test code = MCV) 80.7 80.0-94.0 [facility]woodCibnpjjPVZMKELMGU8058-69-03 04:31:00 Test Item Value Reference Range Interpretation Comments MCHC (test code = MCHC) 32.5 32.0-36.0 [facility]woodUjncddgRYIQFYGEXV6829-52-45 04:31:00 Test Item Value Reference Range Interpretation Comments MCH (test code = MCH) 26.2 pg 27.0-31.0 [facility] KingwoodStlfjrcJVJWZSHPJN3702-07-11 04:31:00 Test Item Value Reference Range Interpretation Comments RDW (test code = RDW) 14.3 11.5-14.5 [facility] KingwoodLokdrjsKQWOHQQZOK7291-20-12 04:31:00 Test Item Value Reference Range Interpretation Comments MPV (test code = MPV) 7.9 7.4-10.4 [facility]woodCpdxuymHAUHUHLBTV3683-24-48 04:31:00 Test Item Value Reference Range Interpretation Comments Platelet (test code = Platelet) 326 133-450 [facility]woodWdkfkqeRDDBRMKVJW0526-28-42 04:31:00 Test Item Value Reference Range Interpretation Comments Hgb (test code = Hgb) 12.2 14.0-18.0 [facility] KingwoodZaayjdkDWQCTMRTLA5132-75-94 04:31:00 Test Item Value Reference Range Interpretation Comments RBC X 10x6 (test code = RBC X 10x6) 4.67 4.70-6.10 [facility] K[id number] 04:31:00 Test Item Value Reference Range Interpretation Comments WBC X 10x3 (test code = WBC X 10x3) 15.5 3.7-10.4 [facility]2017-09-01 04:31:00 Test Item Value Reference Range Interpretation Comments Streptococcus spp. (test Not Detected code = Streptococcus (06/19/17 11:31 PM) spp.) [facility]2017-09-01 04:31:00 Test Item Value Reference Range Interpretation Comments Shirley Vancomycin Not Detected (06/19/17 Resistance (test code = 11:31 PM) Shirley Vancomycin Resistance) [facility]2017-09-01 04:31:00 Test Item Value Reference Range Interpretation Comments Listeria spp. (test Not Detected (06/19/17 code = Listeria spp.) 11:31 PM) [facility]2017-09-01 04:31:00 Test Item Value Reference Range Interpretation Comments mecA Methicillin Not Detected (06/19/17 Resistance (test code = 11:31 PM) mecA Methicillin Resistance) [facility]2017-09-01 04:31:00 Test Item Value Reference Range Interpretation Comments vanB Vancomycin Not Detected (06/19/17 Resistance (test code = 11:31 PM) vanB Vancomycin Resistance) [facility]2017-09-01 04:31:00 Test Item Value Reference Range Interpretation Comments E. faecium (test code Not Detected (06/19/17 = E. faecium) 11:31 PM) [facility]2017-09-01 04:31:00 Test Item Value Reference Range Interpretation Comments Staphylococcus spp. (test Detected code = Staphylococcus *ABN*(06/19/17 11:31 spp.) PM) [facility]2017-09-01 04:31:00 Test Item Value Reference Range Interpretation Comments S. lugdunensis (test Not Detected (06/19/17 code = S. lugdunensis) 11:31 PM) [facility]2017-09-01 04:31:00 Test Item Value Reference Range Interpretation Comments S. epidermidis (test Not Detected (06/19/17 code = S. epidermidis) 11:31 PM) [facility]2017-09-01 04:31:00 Test Item Value Reference Range Interpretation Comments S. aureus (test code = Detected *ABN*(06/19/17 S. aureus) 11:31 PM) [facility]2017-09-01 04:31:00 Test Item Value Reference Range Interpretation Comments S. pneumoniae (test code Not Detected (06/19/17 = S. pneumoniae) 11:31 PM) [facility]2017-09-01 04:31:00 Test Item Value Reference Range Interpretation Comments E. faecalis (test code Not Detected (06/19/17 = E. faecalis) 11:31 PM) [facility]2017-09-01 04:31:00 Test Item Value Reference Range Interpretation Comments S. agalactiae (test code Not Detected (06/19/17 = S. agalactiae) 11:31 PM) [facility]2017-09-01 04:31:00 Test Item Value Reference Range Interpretation Comments S. anginosus grp (test Not Detected (06/19/17 code = S. anginosus 11:31 PM) grp) [facility]2017-09-01 04:31:00 Test Item Value Reference Range Interpretation Comments S. pyogenes (test code Not Detected (06/19/17 = S. pyogenes) 11:31 PM) [facility]2017-09-01 04:31:00 Test Item Value Reference Range Interpretation Comments B/C Ratio (test code = B/C Ratio) 17 6-25 [facility]2017-09-01 04:31:00 Test Item Value Reference Range Interpretation Comments Globulin (test code = Globulin) 5.3 2.7-4.2 [facility]2017-09-01 04:31:00 Test Item Value Reference Range Interpretation Comments A/G Ratio (test code = A/G Ratio) 0.6 0.7-1.6 [facility]2017-09-01 04:31:00 Test Item Value Reference Range Interpretation Comments AGAP (test code = AGAP) 9.5 10.0-20.0 [facility]2017-09-01 04:31:00 Test Item Value Reference Range Interpretation Comments ASPARTATE TRANSAMINASE 12 See_Comment [Aut omated message] (test code = ASPARTATE The s ystem which TRANSAMINASE) generated this result transmitted ref erence range: <=37. Th e reference range was not used to interpr et this result as normal/abnormal . [facility]2017-09-01 04:31:00 Test Item Value Reference Range Interpretation Comments eGFR (test code = eGFR) 86 [facility]2017-09-01 04:31:00 Test Item Value Reference Range Interpretation Comments Bili Total (test code = Bili Total) 0.4 0.2-1.3 [facility]2017-09-01 04:31:00 Test Item Value Reference Range Interpretation Comments Total Protein (test code = Total 8.5 6.4-8.4 Protein) [facility]2017-09-01 04:31:00 Test Item Value Reference Range Interpretation Comments Chloride Lvl (test code = Chloride Lvl) 94 95-109 [facility]2017-09-01 04:31:00 Test Item Value Reference Range Interpretation Comments CO2 (test code = CO2) 30 24-32 [facility]2017-09-01 04:31:00 Test Item Value Reference Range Interpretation Comments Calcium Lvl (test code = Calcium Lvl) 8.8 8.5-10.5 [facility]2017-09-01 04:31:00 Test Item Value Reference Range Interpretation Comments ALANINE AMINOTRANSFERASE 48 See_Comment [A utomated message] (test code = ALANINE The sys tem which AMINOTRANSFERASE) generated this result transmitted ref erence range: <=65. Th e reference range was not used to int erpret this result as normal/abnormal . [facility]2017-09-01 04:31:00 Test Item Value Reference Range Interpretation Comments Albumin Lvl (test code = Albumin Lvl) 3.2 3.5-5.0 [facility]2017-09-01 04:31:00 Test Item Value Reference Range Interpretation Comments Alk Phos (test code = Alk Phos) 150 39-136 [facility]2017-09-01 04:31:00 Test Item Value Reference Range Interpretation Comments Potassium Lvl (test code = Potassium 4.5 3.5-5.1 Lvl) [facility]2017-09-01 04:31:00 Test Item Value Reference Range Interpretation Comments BUN (test code = BUN) 19 7-22 [facility]2017-09-01 04:31:00 Test Item Value Reference Range Interpretation Comments Glucose Lvl (test code = Glucose Lvl) 260 70-99 [facility]2017-09-01 04:31:00 Test Item Value Reference Range Interpretation Comments Creatinine Lvl (test code = Creatinine 1.09 0.50-1.40 Lvl) [facility]2017-09-01 04:31:00 Test Item Value Reference Range Interpretation Comments Sodium Lvl (test code = Sodium Lvl) 129 135-145 [facility]woodQzjurzzQHFQGPKGWC8499-66-85 04:31:00 Test Item Value Reference Range Interpretation Comments RBC Morph (test code = Normal (06/19/17 11:31 RBC Morph) PM) [facility]woodAjjsdffNAVDOMULNH5657-79-62 04:31:00 Test Item Value Reference Range Interpretation Comments Plt Morph (test code = Normal (06/19/17 11:31 Plt Morph) PM) [facility]woodHfgxizsDSGBVKCDPU9851-01-42 04:31:00 Test Item Value Reference Range Interpretation Comments Segs (test code = Segs) 74.0 45.0-75.0 [facility]woodTwzubtmYQYWCUQLQU2423-69-61 04:31:00 Test Item Value Reference Range Interpretation Comments Segs-Bands # (test code = Segs-Bands #) 12.6 1.5-8.1 [facility]woodZzscevpRESUCHMSZZ5791-17-30 04:31:00 Test Item Value Reference Range Interpretation Comments Monocytes (test code = Monocytes) 5.0 2.0-12.0 [facility]woodNdqifulGBGTGUBDEX4479-68-29 04:31:00 Test Item Value Reference Range Interpretation Comments Lymphocytes (test code = Lymphocytes) 13.0 20.0-40.0 [facility]woodWvfyrlrCJRLJFFAEF3691-52-73 04:31:00 Test Item Value Reference Range Interpretation Comments Bands (test code = 7.0 See_Comment [Automat ed message] The Bands) system which ge nerated this result transmit shanelle reference range : <=11.0. The reference r rodney was not used to interpr et this result as pamela l/abnormal. [facility]woodCcvtxzxJTWGZOYBXQ6437-76-00 04:31:00 Test Item Value Reference Range Interpretation Comments Metamyelocytes (test code 1.0 See_Comment [ Automated message] = Metamyelocytes) The system which generated this result transmitted ref erence range: <=1.0. T he reference range was not used to int erpret this result as normal/abnormal . [facility] KingwoodYnzifjaXKFYXNBEBF9004-95-01 04:31:00 Test Item Value Reference Range Interpretation Comments Monocytes # (test code 0.8 See_Comment [Aut omated message] The = Monocytes #) system which generated this result tra nsmitted reference range : <=0.8. The reference r rodney was not used to int erpret this result as normal/abnormal . [facility] KingwoodDuvpppjTYESKGVLJQ7554-37-46 04:31:00 Test Item Value Reference Range Interpretation Comments Lymphocytes # (test code = Lymphocytes 2.0 1.0-5.5 #) [facility]woodZxgzmgjQEVMPTLOEK3171-54-69 04:31:00 Test Item Value Reference Range Interpretation Comments Hct (test code = Hct) 37.7 42.0-54.0 [facility]woodJzvzipnDSIXNQUOKX9319-17-14 04:31:00 Test Item Value Reference Range Interpretation Comments MCV (test code = MCV) 80.7 80.0-94.0 [facility]woodJixawgxUZXCWSRCNX0208-02-46 04:31:00 Test Item Value Reference Range Interpretation Comments MCHC (test code = MCHC) 32.5 32.0-36.0 [facility]woodQaqklijLUNJPHYKQC8177-02-91 04:31:00 Test Item Value Reference Range Interpretation Comments MCH (test code = MCH) 26.2 pg 27.0-31.0 [facility] KingwoodGwifyuqVMNLJAEAGY9011-04-78 04:31:00 Test Item Value Reference Range Interpretation Comments RDW (test code = RDW) 14.3 11.5-14.5 [facility] KingwoodVqenscvDNDWCMIOCH3393-69-06 04:31:00 Test Item Value Reference Range Interpretation Comments MPV (test code = MPV) 7.9 7.4-10.4 [facility]woodQcyhfpjLDGFXGOFQR3768-12-19 04:31:00 Test Item Value Reference Range Interpretation Comments Platelet (test code = Platelet) 326 133-450 [facility] KingwoodZscfjjlVQTWQLZFZJ3605-70-61 04:31:00 Test Item Value Reference Range Interpretation Comments Hgb (test code = Hgb) 12.2 14.0-18.0 [facility] KingwoodRyvzejpCVLDSGTSMS4238-24-92 04:31:00 Test Item Value Reference Range Interpretation Comments RBC X 10x6 (test code = RBC X 10x6) 4.67 4.70-6.10 [facility] KingwoodIenzsgmZXYYOVYWKF4120-86-70 04:31:00 Test Item Value Reference Range Interpretation Comments WBC X 10x3 (test code = WBC X 10x3) 15.5 3.7-10.4 [facility]2017-09-01 04:31:00 Test Item Value Reference Range Interpretation Comments Streptococcus spp. (test Not Detected code = Streptococcus (06/19/17 11:31 PM) spp.) [facility]2017-09-01 04:31:00 Test Item Value Reference Range Interpretation Comments Shirley Vancomycin Not Detected (06/19/17 Resistance (test code = 11:31 PM) Shirley Vancomycin Resistance) [facility]2017-09-01 04:31:00 Test Item Value Reference Range Interpretation Comments Listeria spp. (test Not Detected (06/19/17 code = Listeria spp.) 11:31 PM) [facility]2017-09-01 04:31:00 Test Item Value Reference Range Interpretation Comments mecA Methicillin Not Detected (06/19/17 Resistance (test code = 11:31 PM) mecA Methicillin Resistance) [facility]2017-09-01 04:31:00 Test Item Value Reference Range Interpretation Comments vanB Vancomycin Not Detected (06/19/17 Resistance (test code = 11:31 PM) vanB Vancomycin Resistance) [facility]2017-09-01 04:31:00 Test Item Value Reference Range Interpretation Comments E. faecium (test code Not Detected (06/19/17 = E. faecium) 11:31 PM) [facility]2017-09-01 04:31:00 Test Item Value Reference Range Interpretation Comments Staphylococcus spp. (test Detected code = Staphylococcus *ABN*(06/19/17 11:31 spp.) PM) [facility] [place] 04:[place]:00 Test Item Value Reference Range Interpretation Comments S. lugdunensis (test Not Detected (06/19/17 code = S. lugdunensis) 11:31 PM) [facility] [place]2017-09-01 04:31:00 Test Item Value Reference Range Interpretation Comments S. epidermidis (test Not Detected (06/19/17 code = S. epidermidis) 11:31 PM) [facility] [place]2017-09-01 04:31:00 Test Item Value Reference Range Interpretation Comments S. aureus (test code = Detected *ABN*(06/19/17 S. aureus) 11:31 PM) [facility] [place]2017-09-01 04:31:00 Test Item Value Reference Range Interpretation Comments S. pneumoniae (test code Not Detected (06/19/17 = S. pneumoniae) 11:31 PM) [facility] [place]2017-09-01 04:31:00 Test Item Value Reference Range Interpretation Comments E. faecalis (test code Not Detected (06/19/17 = E. faecalis) 11:31 PM) [facility] [place]2017-09-01 04:31:00 Test Item Value Reference Range Interpretation Comments S. agalactiae (test code Not Detected (06/19/17 = S. agalactiae) 11:31 PM) [facility] [place]2017-09-01 04:31:00 Test Item Value Reference Range Interpretation Comments S. anginosus grp (test Not Detected (06/19/17 code = S. anginosus 11:31 PM) grp) [facility] [id number] 04:31:00 Test Item Value Reference Range Interpretation Comments S. pyogenes (test code Not Detected (06/19/17 = S. pyogenes) 11:31 PM) [facility] [id number] 04:31:00 Test Item Value Reference Range Interpretation Comments B/C Ratio (test code = B/C Ratio) 17 6-25 [facility] [id number] 04:31:00 Test Item Value Reference Range Interpretation Comments Globulin (test code = Globulin) 5.3 2.7-4.2 [facility] [id number] 04:31:00 Test Item Value Reference Range Interpretation Comments A/G Ratio (test code = A/G Ratio) 0.6 0.7-1.6 [facility]2017-09-01 04:31:00 Test Item Value Reference Range Interpretation Comments AGAP (test code = AGAP) 9.5 10.0-20.0 [facility] [id number] 04:31:00 Test Item Value Reference Range Interpretation Comments ASPARTATE TRANSAMINASE 12 See_Comment [Aut omated message] (test code = ASPARTATE The s ystem which TRANSAMINASE) generated this result transmitted ref erence range: <=37. Th e reference range was not used to interpr et this result as normal/abnormal . [facility] [id number] 04:31:00 Test Item Value Reference Range Interpretation Comments eGFR (test code = eGFR) 86 [facility] [id number] 04:31:00 Test Item Value Reference Range Interpretation Comments Bili Total (test code = Bili Total) 0.4 0.2-1.3 [facility]2017-09-01 04:31:00 Test Item Value Reference Range Interpretation Comments Total Protein (test code = Total 8.5 6.4-8.4 Protein) [facility]2017-09-01 04:31:00 Test Item Value Reference Range Interpretation Comments Chloride Lvl (test code = Chloride Lvl) 94 95-109 [facility]2017-09-01 04:31:00 Test Item Value Reference Range Interpretation Comments CO2 (test code = CO2) 30 24-32 [facility]2017-09-01 04:31:00 Test Item Value Reference Range Interpretation Comments Calcium Lvl (test code = Calcium Lvl) 8.8 8.5-10.5 [facility]2017-09-01 04:31:00 Test Item Value Reference Range Interpretation Comments ALANINE AMINOTRANSFERASE 48 See_Comment [A utomated message] (test code = ALANINE The sys tem which AMINOTRANSFERASE) generated this result transmitted ref erence range: <=65. Th e reference range was not used to int erpret this result as normal/abnormal . [facility]2017-09-01 04:31:00 Test Item Value Reference Range Interpretation Comments Albumin Lvl (test code = Albumin Lvl) 3.2 3.5-5.0 [facility]2017-09-01 04:31:00 Test Item Value Reference Range Interpretation Comments Alk Phos (test code = Alk Phos) 150 39-136 [facility]2017-09-01 04:31:00 Test Item Value Reference Range Interpretation Comments Potassium Lvl (test code = Potassium 4.5 3.5-5.1 Lvl) [facility]2017-09-01 04:31:00 Test Item Value Reference Range Interpretation Comments BUN (test code = BUN) 19 7-22 [facility]2017-09-01 04:31:00 Test Item Value Reference Range Interpretation Comments Glucose Lvl (test code = Glucose Lvl) 260 70-99 [facility]2017-09-01 04:31:00 Test Item Value Reference Range Interpretation Comments Creatinine Lvl (test code = Creatinine 1.09 0.50-1.40 Lvl) [facility]2017-09-01 04:31:00 Test Item Value Reference Range Interpretation Comments Sodium Lvl (test code = Sodium Lvl) 129 135-145 [facility]RtkmotrFIOCTPIESG4765-70-68 04:31:00 Test Item Value Reference Range Interpretation Comments RBC Morph (test code = Normal (06/19/17 11:31 RBC Morph) PM) [facility]woodCfgoneyYZQAXRZBCQ0801-10-22 04:31:00 Test Item Value Reference Range Interpretation Comments Plt Morph (test code = Normal (06/19/17 11:31 Plt Morph) PM) [facility]woodXekfijiKYOBAXGXXA1396-67-90 04:31:00 Test Item Value Reference Range Interpretation Comments Segs (test code = Segs) 74.0 45.0-75.0 [facility] KingwoodBfsdiqiDHDYYBWJIF8120-34-89 04:31:00 Test Item Value Reference Range Interpretation Comments Segs-Bands # (test code = Segs-Bands #) 12.6 1.5-8.1 [facility]woodGelvsecYDWGSOWCFS6804-24-03 04:31:00 Test Item Value Reference Range Interpretation Comments Monocytes (test code = Monocytes) 5.0 2.0-12.0 [facility] KingwoodDhgvnfaHDCZCDGYRW7980-82-48 04:31:00 Test Item Value Reference Range Interpretation Comments Lymphocytes (test code = Lymphocytes) 13.0 20.0-40.0 [facility]woodKqqxgnsHAVNZVQMSB6539-36-57 04:31:00 Test Item Value Reference Range Interpretation Comments Bands (test code = 7.0 See_Comment [Automat ed message] The Bands) system which ge nerated this result transmit shanelle reference range : <=11.0. The reference r rodney was not used to interpr et this result as pamela l/abnormal. [facility] KingwoodUhgknisGEHDQLOJGZ8698-34-90 04:31:00 Test Item Value Reference Range Interpretation Comments Metamyelocytes (test code 1.0 See_Comment [ Automated message] = Metamyelocytes) The system which generated this result transmitted ref erence range: <=1.0. T he reference range was not used to int erpret this result as normal/abnormal . [facility] KingwoodDwstkmhOQWIWWRFXH0914-44-32 04:31:00 Test Item Value Reference Range Interpretation Comments Monocytes # (test code 0.8 See_Comment [Aut omated message] The = Monocytes #) system which generated this result tra nsmitted reference range : <=0.8. The reference r rodney was not used to int erpret this result as normal/abnormal . [facility]woodGqyxinhEWKRZEKSYX0398-53-31 04:31:00 Test Item Value Reference Range Interpretation Comments Lymphocytes # (test code = Lymphocytes 2.0 1.0-5.5 #) [facility]woodXtwiqphSGUVXNGGHY6910-16-12 04:31:00 Test Item Value Reference Range Interpretation Comments Hct (test code = Hct) 37.7 42.0-54.0 [facility] KingwoodCeugaqgUWHBRDEPOH5192-79-93 04:31:00 Test Item Value Reference Range Interpretation Comments MCV (test code = MCV) 80.7 80.0-94.0 [facility] KingwoodVgqxdwnKOZESDWZQV9441-74-95 04:31:00 Test Item Value Reference Range Interpretation Comments MCHC (test code = MCHC) 32.5 32.0-36.0 [facility] KingwoodUmxizqhJPQYGYZIHT2085-01-03 04:31:00 Test Item Value Reference Range Interpretation Comments MCH (test code = MCH) 26.2 pg 27.0-31.0 [facility] KingwoodLdszzbzZQVZITVUNO9905-53-77 04:31:00 Test Item Value Reference Range Interpretation Comments RDW (test code = RDW) 14.3 11.5-14.5 [facility] KingwoodVpibqnuIXLOFSNBHH9350-76-93 04:31:00 Test Item Value Reference Range Interpretation Comments MPV (test code = MPV) 7.9 7.4-10.4 [facility] KingwoodTnywmqoOZVTEVIFJZ9906-88-52 04:31:00 Test Item Value Reference Range Interpretation Comments Platelet (test code = Platelet) 326 133-450 [facility] KingwoodCqbhpqmZFNPIMCYGT8005-80-65 04:31:00 Test Item Value Reference Range Interpretation Comments Hgb (test code = Hgb) 12.2 14.0-18.0 [facility] KingwoodPtugktiKAOLVAEJWD4668-00-86 04:31:00 Test Item Value Reference Range Interpretation Comments RBC X 10x6 (test code = RBC X 10x6) 4.67 4.70-6.10 [facility] KingwoodXsucdauNNEHSZTGTI4621-34-95 04:31:00 Test Item Value Reference Range Interpretation Comments WBC X 10x3 (test code = WBC X 10x3) 15.5 3.7-10.4 [facility]2017-09-01 04:31:00 Test Item Value Reference Range Interpretation Comments Streptococcus spp. (test Not Detected code = Streptococcus (06/19/17 11:31 PM) spp.) [facility] [place]2017-09-01 04:31:00 Test Item Value Reference Range Interpretation Comments Shirley Vancomycin Not Detected (06/19/17 Resistance (test code = 11:31 PM) Shirley Vancomycin Resistance) [facility] [place]2017-09-01 04:31:00 Test Item Value Reference Range Interpretation Comments Listeria spp. (test Not Detected (06/19/17 code = Listeria spp.) 11:31 PM) [facility] [place]2017-09-01 04:31:00 Test Item Value Reference Range Interpretation Comments mecA Methicillin Not Detected (06/19/17 Resistance (test code = 11:31 PM) mecA Methicillin Resistance) [facility] [place]2017-09-01 04:31:00 Test Item Value Reference Range Interpretation Comments vanB Vancomycin Not Detected (06/19/17 Resistance (test code = 11:31 PM) vanB Vancomycin Resistance) [facility] [place]2017-09-01 04:31:00 Test Item Value Reference Range Interpretation Comments E. faecium (test code Not Detected (06/19/17 = E. faecium) 11:31 PM) [facility] [place]2017-09-01 04:31:00 Test Item Value Reference Range Interpretation Comments Staphylococcus spp. (test Detected code = Staphylococcus *ABN*(06/19/17 11:31 spp.) PM) [facility] [place]2017-09-01 04:31:00 Test Item Value Reference Range Interpretation Comments S. lugdunensis (test Not Detected (06/19/17 code = S. lugdunensis) 11:31 PM) [facility] [place]2017-09-01 04:31:00 Test Item Value Reference Range Interpretation Comments S. epidermidis (test Not Detected (06/19/17 code = S. epidermidis) 11:31 PM) [facility] [place]2017-09-01 04:31:00 Test Item Value Reference Range Interpretation Comments S. aureus (test code = Detected *ABN*(06/19/17 S. aureus) 11:31 PM) [facility] [place]2017-09-01 04:31:00 Test Item Value Reference Range Interpretation Comments S. pneumoniae (test code Not Detected (06/19/17 = S. pneumoniae) 11:31 PM) [facility] [place]2017-09-01 04:31:00 Test Item Value Reference Range Interpretation Comments E. faecalis (test code Not Detected (06/19/17 = E. faecalis) 11:31 PM) [facility] [place]2017-09-01 04:31:00 Test Item Value Reference Range Interpretation Comments S. agalactiae (test code Not Detected (06/19/17 = S. agalactiae) 11:31 PM) [facility]2017-09-01 04:31:00 Test Item Value Reference Range Interpretation Comments S. anginosus grp (test Not Detected (06/19/17 code = S. anginosus 11:31 PM) grp) [facility] [place]2017-09-01 04:31:00 Test Item Value Reference Range Interpretation Comments S. pyogenes (test code Not Detected (06/19/17 = S. pyogenes) 11:31 PM) [facility]2017-09-01 04:31:00 Test Item Value Reference Range Interpretation Comments B/C Ratio (test code = B/C Ratio) 17 6-25 [facility]2017-09-01 04:31:00 Test Item Value Reference Range Interpretation Comments Globulin (test code = Globulin) 5.3 2.7-4.2 [facility]2017-09-01 04:31:00 Test Item Value Reference Range Interpretation Comments A/G Ratio (test code = A/G Ratio) 0.6 0.7-1.6 [facility]2017-09-01 04:31:00 Test Item Value Reference Range Interpretation Comments AGAP (test code = AGAP) 9.5 10.0-20.0 [facility]2017-09-01 04:31:00 Test Item Value Reference Range Interpretation Comments ASPARTATE TRANSAMINASE 12 See_Comment [Aut omated message] (test code = ASPARTATE The s ystem which TRANSAMINASE) generated this result transmitted ref erence range: <=37. Th e reference range was not used to interpr et this result as normal/abnormal . [facility]2017-09-01 04:31:00 Test Item Value Reference Range Interpretation Comments eGFR (test code = eGFR) 86 [facility]2017-09-01 04:31:00 Test Item Value Reference Range Interpretation Comments Bili Total (test code = Bili Total) 0.4 0.2-1.3 [facility]2017-09-01 04:31:00 Test Item Value Reference Range Interpretation Comments Total Protein (test code = Total 8.5 6.4-8.4 Protein) [facility]2017-09-01 04:31:00 Test Item Value Reference Range Interpretation Comments Chloride Lvl (test code = Chloride Lvl) 94 95-109 [facility]2017-09-01 04:31:00 Test Item Value Reference Range Interpretation Comments CO2 (test code = CO2) 30 24-32 [facility]2017-09-01 04:31:00 Test Item Value Reference Range Interpretation Comments Calcium Lvl (test code = Calcium Lvl) 8.8 8.5-10.5 [facility]2017-09-01 04:31:00 Test Item Value Reference Range Interpretation Comments ALANINE AMINOTRANSFERASE 48 See_Comment [A utomated message] (test code = ALANINE The sys tem which AMINOTRANSFERASE) generated this result transmitted ref erence range: <=65. Th e reference range was not used to int erpret this result as normal/abnormal . [facility]2017-09-01 04:31:00 Test Item Value Reference Range Interpretation Comments Albumin Lvl (test code = Albumin Lvl) 3.2 3.5-5.0 [facility]2017-09-01 04:31:00 Test Item Value Reference Range Interpretation Comments Alk Phos (test code = Alk Phos) 150 39-136 [facility]2017-09-01 04:31:00 Test Item Value Reference Range Interpretation Comments Potassium Lvl (test code = Potassium 4.5 3.5-5.1 Lvl) [facility]2017-09-01 04:31:00 Test Item Value Reference Range Interpretation Comments BUN (test code = BUN) 19 7-22 [facility]2017-09-01 04:31:00 Test Item Value Reference Range Interpretation Comments Glucose Lvl (test code = Glucose Lvl) 260 70-99 [facility]2017-09-01 04:31:00 Test Item Value Reference Range Interpretation Comments Creatinine Lvl (test code = Creatinine 1.09 0.50-1.40 Lvl) [facility]2017-09-01 04:31:00 Test Item Value Reference Range Interpretation Comments Sodium Lvl (test code = Sodium Lvl) 129 135-145 [facility]woodHifjjuqLGVZEIYPXP6100-31-72 04:31:00 Test Item Value Reference Range Interpretation Comments RBC Morph (test code = Normal (06/19/17 11:31 RBC Morph) PM) [facility] KingwoodAspyhxpHNFSKOTNKV2218-08-04 04:31:00 Test Item Value Reference Range Interpretation Comments Plt Morph (test code = Normal (06/19/17 11:31 Plt Morph) PM) [facility]woodFacfhhwHXWPXYDCUU2963-62-96 04:31:00 Test Item Value Reference Range Interpretation Comments Segs (test code = Segs) 74.0 45.0-75.0 [facility] KingwoodXwdgzmlSIIXVOAWUR2457-91-00 04:31:00 Test Item Value Reference Range Interpretation Comments Segs-Bands # (test code = Segs-Bands #) 12.6 1.5-8.1 [facility] KingwoodMrepbmrTMCUMHUXAL9844-77-80 04:31:00 Test Item Value Reference Range Interpretation Comments Monocytes (test code = Monocytes) 5.0 2.0-12.0 [facility] KingwoodThxnynnAQHHILVEIV3846-83-07 04:31:00 Test Item Value Reference Range Interpretation Comments Lymphocytes (test code = Lymphocytes) 13.0 20.0-40.0 [facility] KingwoodHwmqtirEDULVXOEFP9166-28-17 04:31:00 Test Item Value Reference Range Interpretation Comments Bands (test code = 7.0 See_Comment [Automat ed message] The Bands) system which ge nerated this result transmit shanelle reference range : <=11.0. The reference r rodney was not used to interpr et this result as pamela l/abnormal. [facility] KingwoodZawxoszKFGNGDMMGW0287-04-39 04:31:00 Test Item Value Reference Range Interpretation Comments Metamyelocytes (test code 1.0 See_Comment [ Automated message] = Metamyelocytes) The system which generated this result transmitted ref erence range: <=1.0. T he reference range was not used to int erpret this result as normal/abnormal . [facility] KingwoodAiinnnmFZOMJYBQGN6692-17-37 04:31:00 Test Item Value Reference Range Interpretation Comments Monocytes # (test code 0.8 See_Comment [Aut omated message] The = Monocytes #) system which generated this result tra nsmitted reference range : <=0.8. The reference r rodney was not used to int erpret this result as normal/abnormal . [place]1987-09-01 04:31:00 Test Item Value Reference Range Interpretation Comments Lymphocytes # (test code = Lymphocytes 2.0 1.0-5.5 #) [facility]woodDcsyqznQGTLVFPRSS2825-75-13 04:31:00 Test Item Value Reference Range Interpretation Comments Hct (test code = Hct) 37.7 42.0-54.0 [facility] KingwoodNgrynomRHAXHWKDJS2174-18-01 04:31:00 Test Item Value Reference Range Interpretation Comments MCV (test code = MCV) 80.7 80.0-94.0 [facility] KingwoodLjqaxetAYUMCQJLOX3190-86-74 04:31:00 Test Item Value Reference Range Interpretation Comments MCHC (test code = MCHC) 32.5 32.0-36.0 [facility] KingwoodWtvbrfkHACZFKMQKW2254-78-08 04:31:00 Test Item Value Reference Range Interpretation Comments MCH (test code = MCH) 26.2 pg 27.0-31.0 [facility] KingwoodPnwizwtTTMLLMCKHZ8129-32-25 04:31:00 Test Item Value Reference Range Interpretation Comments RDW (test code = RDW) 14.3 11.5-14.5 [facility] KingwoodFvvzakiOMXDXGFYYI9233-17-44 04:31:00 Test Item Value Reference Range Interpretation Comments MPV (test code = MPV) 7.9 7.4-10.4 [facility] KingwoodGfkxuzmEVGISQLZDC1535-34-80 04:31:00 Test Item Value Reference Range Interpretation Comments Platelet (test code = Platelet) 326 872-450 [facility] Test Item Value Reference Range Interpretation Comments A1C (test code = 4548-4) 6.6 HEMOGLOBIN A1C Test Item Value Reference Range Interpretation Comments A1C (test code = 4548-4) 5.8
--- NOTE | 2022-08-28 11:38 | EDPHYS ---
Physician Documentation [facility] Name: Rica Ribeiro Jr Age: 61 yrs Sex: Male : 1960 Arrival Date: 08/28/2022 Time: 11:02 Bed 16 Private MD: ED Physician Bridger Zaidi HPI: 08/28 11:07 This 61 yrs old Black Male presents to ER via EMS with complaints of fell on recent op snw site to left knee. 11:07 The patient presents with an injury. The complaints affect the left knee. Context: The snw problem was sustained at home, resulted from the patient falling, while walking. Onset: The symptoms/episode began/occurred suddenly, just prior to arrival. Treatment prior to arrival includes: no previous treatment. Severity of symptoms: At their worst the symptoms were moderate. The patient has not experienced similar symptoms in the past. pt had knee surgery on , wound vac in place, when pt fell, surgical site dehisced.. Historical: - Allergies: 11:14 NKA; ko1 - PMHx: 11:14 blood clots DVT; Diabetes - NIDDM; Hyperlipidemia; staph infection; neuropathy; ko1 - Immunization history:: Adult Immunizations up to date. - Social history:: Smoking status: Patient denies any tobacco usage or history of. ROS: 11:13 Constitutional: Negative for fever, chills, and weight loss, Eyes: Negative for injury, snw pain, redness, and discharge, ENT: Negative for injury, pain, and discharge, Neck: Negative for injury, pain, and swelling, Cardiovascular: Negative for chest pain, palpitations, and edema, Respiratory: Negative for shortness of breath, cough, wheezing, and pleuritic chest pain, Abdomen/GI: Negative for abdominal pain, nausea, vomiting, diarrhea, and constipation, Back: Negative for injury and pain, : Negative for injury, bleeding, discharge, and swelling, Skin: Negative for injury, rash, and discoloration, Neuro: Negative for headache, weakness, numbness, tingling, and seizure, Psych: Negative for depression, anxiety, suicide ideation, homicidal ideation, and hallucinations. 11:13 MS/extremity: Positive for injury or acute deformity, of the left knee. Exam: 11:11 Constitutional: This is a well developed, well nourished patient who is awake, alert, snw and in no acute distress. Head/Face: Normocephalic, atraumatic. Eyes: Pupils equal round and reactive to light, extra-ocular motions intact. Lids and lashes normal. Conjunctiva and sclera are non-icteric and not injected. Cornea within normal limits. Periorbital areas with no swelling, redness, or edema. ENT: Nares patent. No nasal discharge, no septal abnormalities noted. Tympanic membranes are normal and external auditory canals are clear. Oropharynx with no redness, swelling, or masses, exudates, or evidence of obstruction, uvula midline. Mucous membranes moist. Neck: Trachea midline, no thyromegaly or masses palpated, and no cervical lymphadenopathy. Supple, full range of motion without nuchal rigidity, or vertebral point tenderness. No Meningismus. Chest/axilla: Normal chest wall appearance and motion. Nontender with no deformity. No lesions are appreciated. Cardiovascular: Regular rate and rhythm with a normal S1 and S2. No gallops, murmurs, or rubs. Normal PMI, no JVD. No pulse deficits. Respiratory: Lungs have equal breath sounds bilaterally, clear to auscultation and percussion. No rales, rhonchi or wheezes noted. No increased work of breathing, no retractions or nasal flaring. Abdomen/GI: Soft, non-tender, with normal bowel sounds. No distension or tympany. No guarding or rebound. No evidence of tenderness throughout. Back: No spinal tenderness. No costovertebral tenderness. Full range of motion. Neuro: Awake and alert, GCS 15, oriented to person, place, time, and situation. Cranial nerves II-XII grossly intact. Motor strength 5/5 in all extremities. Sensory grossly intact. Cerebellar exam normal. Normal gait. 11:11 Skin: Appearance: wound dressing (tegaderm intact) over dehisced surgical site with wound vac at superior aspect. Vital Signs: 11:10 BP 113 / 75; Pulse 66; Resp 18; Temp 97.8; Pulse Ox 100% on R/A; Weight 122.47 kg; ko1 Height 6 ft. 7 in. (200.66 cm); Pain 5/10; 11:53 BP 118 / 82; Pulse 70; Pulse Ox 99% on R/A; ko1 11:10 Body Mass Index 30.42 (122.47 kg, 200.66 cm) ko1 MDM: 11:13 Data reviewed: vital signs, nurses notes. Data interpreted:. Counseling: I had a snw detailed discussion with the patient and/or guardian regarding: the historical points, exam findings, and any diagnostic results supporting the discharge/admit diagnosis, the need to transfer to another facility, to [facility] for Dr. Leo. 11:18 Patient medically screened. snw 11:35 Physician consultation: Dr Leo was contacted at 11:15, regarding need to evaluate the snw patient as soon as possible, and will see patient at [facility]. immediately. 08/28 11:35 Order name: Knee Immobilizer; Complete Time: 11:42 snw 08/28 11:35 Order name: Wound dressing; Complete Time: 11:42 snw Administered Medications: No medications were administered Disposition: 13:27 Co-signature as Attending Physician, Bridger Zaidi MD I agree with the assessment and kdr plan of care. Disposition Summary: 08/28/22 11:37 Discharge Ordered Location: Home snw Condition: Stable snw Diagnosis - DEHISCENCE OF WOUND snw Followup: snw - With: Emergency Department - When: As needed - Reason: Worsening of condition Followup: snw - With: Private Physician - When: Upon discharge from the Emergency Department - Reason: Recheck today's complaints, Continuance of care Discharge Instructions: - Discharge Summary Sheet snw - Wound Dehiscence snw Forms: - Medication Reconciliation Form snw - Thank You Letter snw - Antibiotic Education snw - Prescription Opioid Use snw Signatures: Bridger Zaidi MD MD kdr Waters, Shelly, FNP-C STATISTICIAN-Csnw Denise Tamayo, RN RN ko1
--- NOTE | 2022-08-28 11:38 | ER ---
Nurse's Notes [facility] Name: Rica Ribeiro Jr Age: 61 yrs Sex: Male : 1960 Arrival Date: 08/28/2022 Time: 11:02 Bed 16 Private MD: Diagnosis: DEHISCENCE OF WOUND Presentation: 08/28 11:03 Chief complaint: Patient states: I fell and busted my incision open on my knee, I just ko1 had knee sx last week. Coronavirus screen: At this time, the client does not indicate any symptoms associated with coronavirus-19. Ebola Screen: No symptoms or risks identified at this time. Initial Sepsis Screen: Does the patient meet any 2 criteria? No. Patient's initial sepsis screen is negative. Does the patient have a suspected source of infection? No. Patient's initial sepsis screen is negative. Risk Assessment: Do you want to hurt yourself or someone else? Patient reports no desire to harm self or others. Onset of symptoms was August 28, 2022. 11:03 Method Of Arrival: EMS: [facility] ko1 11:03 Acuity: ALTAF 2 ko1 Triage Assessment: 11:03 General: Appears in no apparent distress. uncomfortable, Behavior is calm, cooperative, ko1 appropriate for age. Pain: Complains of pain in left knee. Historical: - Allergies: 11:14 NKA; ko1 - PMHx: 11:14 blood clots DVT; Diabetes - NIDDM; Hyperlipidemia; staph infection; neuropathy; ko1 - Immunization history:: Adult Immunizations up to date. - Social history:: Smoking status: Patient denies any tobacco usage or history of. Screenin:15 Abuse screen: Denies threats or abuse. Denies injuries from another. Nutritional ko1 screening: No deficits noted. Tuberculosis screening: No symptoms or risk factors identified. Fall Risk Fall in past 12 months (25 points). Ambulatory Aid- None/Bed Rest/Nurse Assist (0 pts). Assessment: 11:15 General: Appears in no apparent distress. uncomfortable. Pain: Complains of pain in ko1 left leg and left knee. Neuro: No deficits noted. Cardiovascular: No deficits noted. Respiratory: No deficits noted. GI: No deficits noted. : No deficits noted. EENT: No deficits noted. Derm: No deficits noted. Musculoskeletal: left knee incision with edema, bleeding. Injury Description: surgical incision opened. Vital Signs: 11:10 BP 113 / 75; Pulse 66; Resp 18; Temp 97.8; Pulse Ox 100% on R/A; Weight 122.47 kg; ko1 Height 6 ft. 7 in. (200.66 cm); Pain 5/10; 11:53 BP 118 / 82; Pulse 70; Pulse Ox 99% on R/A; ko1 11:10 Body Mass Index 30.42 (122.47 kg, 200.66 cm) ko1 ED Course: 11:02 Patient arrived in ED. as 11:02 [facility]C [facility] snw 11:02 Bridger Zaidi MD is Attending Physician. snw 11:02 Denise Tamayo, RN is Primary Nurse. ko1 11:03 Arm band placed on left wrist. Patient placed in the treatment room. ko1 11:04 Triage completed. ko1 11:15 Patient has correct armband on for positive identification. Fall risk band placed. Bed ko1 in low position. Call light in reach. Side rails up X 1. Client placed on continuous cardiac and pulse oximetry monitoring. NIBP monitoring applied. Head of bed elevated. Elevated left leg. 11:15 No provider procedures requiring assistance completed. ko1 11:53 Patient did not have IV access during this emergency room visit. Dressings: ABD pad X ko1 2; left leg and left knee Kerlix X 2; left knee. Knee immobilizer applied on left knee. Administered Medications: No medications were administered Medication: 11:15 VIS not applicable for this client. ko1 Outcome: 11:37 Discharge ordered by . snw 11:53 Discharged to home with family, transported patient to vehicle via stretcher due to ko1 patients height and knee condition. Patient assisted to back seat of [facility] without difficulty. He is being taken to the knee surgeons office via POV. 11:53 Condition: stable 11:53 Discharge instructions given to patient, family, Instructed on discharge instructions, follow up and referral plans. Demonstrated understanding of instructions, follow-up care. 11:59 Patient left the ED. ko1 Signatures: Cheryl Montes FNP-C [employer] RESEARCH SPECIALIST-CsnUmu Wagner as Denise Tamayo, RN RN ko1 Corrections: (The following items were deleted from the chart) 11:14 11:10 BP 113 / 75; Resp 18bpm; Pulse Ox 100% RA; Temp 97.8F; 122.47 kg; Height 6 ft. 7 ko1 in.; BMI: 30.4; Pain 5/10; ko1
[2022-08-28 12:03] VITALS: TEMP 97.8
[2022-08-28 12:04] VITALS: BP 118/82; O2SAT 99
== END 2022-08-28 11:59 | disposition home or self-care (01) ==
LOC: ER 11:01
DX: T81.30XA Disruption of wound, unspecified, initial encounter (principal)
CPT/HCPCS: 99283